=== PATIENT | male | born 1945 | race Caucasian/White ===

== ENCOUNTER 2020-06-10 12:55 | Emergency (ER) | payer MEDICARE, OTHER, SELFPAY ==
[2020-06-10 13:21] VITALS: BP 125/72; PULSE 101; RESP 14; TEMP 36.5; O2SAT 100; BMI 17.9
--- NOTE | 2020-06-10 13:37 | HMH.EDUTC ---
[facility] [place] Disposition Clinical Impression: Viral syndrome Fatigue Qualifiers: Fatigue type: unspecified Qualified Code(s): R53.83 - Other fatigue Anemia Qualifiers: Anemia type: unspecified type Qualified Code(s): D64.9 - Anemia, unspecified Disposition: Home, Self-Care Condition on Discharge: Good Instructions: DI for Viral Syndrome Additional Instructions: Drink plenty of fluids. You need to follow up with your primary care physician for further evaluation of your chest x-ray. We don't have an old one to compare it to. You may need to have a ct scan but your primary care doctor is who should make this choice. Take tylenol for pain or fever. Return if you begin to have difficulty breathing. Follow up with your regular doctor. GO TO THE ER FOR ANY WORSENING SYMPTOMS FOLLOW UP WITH YOUR PRIMARY CARE PHYSICIAN TO GO OVER YOUR LAB WORK AND TO DISCUSS YOUR MILD ANEMIA ON THE BLOOD WORK. Prescriptions: Ondansetron [Zofran 4mg ODT] 4 mg PO Q8HP PRN #9 tab.rapdis PRN Reason: Nausea Transmission Status: Received by [facility] Azithromycin [Z-Gopi 250mg Tab*] 250 mg PO UD DOSE PK #6 tab Transmission Status: Received by [facility] Referrals: PCP,No [Primary Care Provider] - Time of Disposition: 14:42 Medical Decision Making - Medical Records Medical records reviewed: No: I reviewed the patient's medical records. - Mitchell Inquiry Pt receiving controlled substance: No Vital Signs: 06/10/20 13:21 06/10/20 15:23 Temperature 97.7 F 97.8 F Temperature Source Tympanic Oral Pulse Rate 101 H Pulse Rate [Right] 101 H Respiratory Rate 14 14 Blood Pressure 126/72 Blood Pressure [Right Arm] 125/72 Blood Pressure Mean [Right Arm] 89 Blood Pressure Source Automatic Cuff Blood Pressure Source [Right Arm] Automatic Cuff Blood Pressure Position Supine Blood Pressure Position [Right Arm] Sitting 02 Sat by Pulse Oximetry 100 Oxygen Delivery Method Room Air Room Air - Lab Data Lab results reviewed: Yes: I reviewed the patient's lab results. Lab Results 06/10/20 14:00: WBC 9.7, RBC 3.82 L, Hgb 11.8 L, Hct 36.6 L, MCV 95.7 H, MCH 31.0, MCHC 32.4, RDW 12.4, Plt Count 481 H, MPV 7.0 L, Neut % (Auto) 79.5, Lymph % (Auto) 15.3, [place] % (Auto) 4.6, Eos % (Auto) 0.3, Baso % (Auto) 0.3, Neut # (Auto) 7.7, Lymph # (Auto) 1.5, [place] # (Auto) 0.4, Eos # (Auto) 0.0, Baso # (Auto) 0.0 06/10/20 14:00: Sodium 135 L, Potassium 4.2, Chloride 98, Carbon Dioxide 26, Anion Gap 15.2 H, BUN 21 H, Creatinine 0.70, Estimated Creat Clear 50, Estimated GFR 110, Est GFR ( Amer) 133, Glucose 113 H, Calcium 7.6 L, Total Bilirubin 0.6, AST 32, ALT 19, Alkaline Phosphatase 68, Total Protein 7.6, Albumin 3.7, Globulin 3.9 H, Albumin/Globulin Ratio 0.9 L Result diagrams: 06/10/20 14:00 06/10/20 14:00 [facility] [place] HPI - General Stated complaint: no appetite since Covid Shot 3-15 V/D Time Seen by Provider: 06/10/20 13:37 Mode of Arrival: Ambulatory Source of Information: Patient Limitations: No Limitations Description of Symptoms (Recalled from Triage Doc. by RN): pt states he has been sick since his second covid vaccine on May 15. he says he just feels bad and has no appetite. HEENT Symptoms (Recalled from RN notes): No Resp Symptoms (Recalled from RN notes): No Skin Symptoms (Recalled from RN notes): No MS Symptoms (Recalled from RN notes): No Functional Status (Recalled from RN notes): na - History of Present Illness Provider Complaint: He states that he has felt bad for the past 2 weeks. He began feeling bad after his second covid-19 vaccination. He denies any cough and fever. He denies any chest pain. - Related Data Previous Rx's Medication Instructions Recorded Azithromycin [Z-Gopi 250mg Tab*] 250 mg PO UD DOSE PK #6 tab 06/10/20 Ondansetron [Zofran 4mg ODT] 4 mg PO Q8HP PRN #9 tab.rapdis 06/10/20 - Worker's Comp Is this a Worker's Comp case?: No [facility]
--- NOTE | 2020-06-10 13:43 | XR_ITS ---
PROCEDURE: XR CHEST 2V CLINICAL HISTORY: cough, feels bad COMPARISON: CR CXR CHEST(2 VIEWS-NOT PORTABLE) from 05/09/2014 FINDINGS: The cardiomediastinal silhouette and pulmonary vascularity are within normal limits. Severe COPD/emphysema. There is biapical pleural thickening. There is scattered areas of parenchymal opacity in the right upper lobe, left upper lobe both mid lung zones and the left lower lobe. These could be due to areas of pneumonia or fibrotic change. Cannot exclude underlying pulmonary nodule as well. Dedicated chest CT with contrast suggested for further evaluation. These bilateral pulmonary opacities have developed since 05/09/2014. There is also prominence of the left hilum raising the suspicion of a left hilar mass. No effusions. No acute bony anomalies. There is mild tracheal shift toward the left which may be due to left upper lobe volume loss. No acute bony abnormalities. IMPRESSION: Severe COPD/emphysema with interval development of scattered bilateral pulmonary opacities which could be either inflammatory/infectious, due to scarring, or even neoplasm or a combination there of. Prominent left hilum. Suggest chest CT with contrast for further evaluation. Dictated by: Robbie Simmons MD 06/10/2020 15:02 Robbie Simmons MD in [place] 06/10/2020 15:02
[2020-06-10 14:15] LABS: Basophils % 0.3 % (0.1-2.0); Eosinophils % 0.3 % (0.1-12.0); Hematocrit 36.6 % (42.0-52.0); Hemoglobin 11.8 g/dL (14.1-18.0); Lymphocytes # 1.5 K/mm3 (0.7-4.5); Lymphocytes % 15.3 % (10-50); Mean Corpuscular HGB Conc 32.4 g/dL (31.8-35.4); Mean Corpuscular Volume 95.7 fl (80-94); Monocytes # 0.4 K/mm3 (0.1-1.0); Monocytes % 4.6 % (1.7-9.3); Neutrophils # 7.7 K/mm3 (1.8-7.8); Neutrophils % 79.5 % (37.0-80.0); Platelet Count 481 K/mm3 (142-424); Red Blood Count 3.82 M/mm3 (4.60-6.20); Red Cell Distribution Width 12.4 % (11.5-17.5); White Blood Count 9.7 K/mm3 (4.8-10.8)
[2020-06-10 14:18] LABS: Alanine Aminotransferase 19 U/L (12-78); Albumin Level 3.7 g/dl (3.5-5.0); Albumin/Globulin Ratio 0.9 (1.1-1.8); Alkaline Phosphatase 68 U/L (38-126); Anion Gap 15.2 mEq/L (5-15); Aspartate Amino Transferase 32 U/L (17-59); Bilirubin,Total 0.6 mg/dl (0.2-1.3); Blood Urea Nitrogen 21 mg/dl (9-20); Calcium 7.6 mg/dl (8.4-10.2); Carbon Dioxide 26 mmol/L (22.0-30.0); Chloride 98 mmol/L (98-107); Creatinine Clearance Estimated 50 mL/min (50-200); Estimated Glomerular Filt Rate 110 ml/min (>60); GFR (African American) 133 ML/MIN (>60); Globulin 3.9 g/dL (1.3-3.2); Glucose 113 mg/dl (74-100); Potassium 4.2 mmoL/L (3.5-5.1); Sodium 135 mmol/L (136-145); Total Protein,Serum 7.6 g/dl (6.3-8.2)
[2020-06-10 15:23] VITALS: BP 126/72; PULSE 101; RESP 14; TEMP 36.6; O2SAT 100
== END 2020-06-10 15:23 | disposition home or self-care (01) ==
PROVIDERS: Emergency Provider Nurse Practitioner Family
DX: B34.9 Viral infection, unspecified (principal); R53.83 Other fatigue; D64.9 Anemia, unspecified
CPT/HCPCS: G0463; 71046; 80053; 85025; 99202

== ENCOUNTER 2020-06-10 18:02 | Observation (INO) | payer MEDICARE, OTHER, SELFPAY ==
[2020-06-10] VITALS (37 sets, daily range): BP systolic 78–121; BP diastolic 32–88; PULSE 62–168; RESP 16–40; TEMP 37.4; O2SAT 95–100; BMI 22.1; BMI 15.7
--- NOTE | 2020-06-10 18:07 | ECG_ITS ---
APPROVED REPORT Exam: Resting ECG HR:159 bpm ECG Measurements Heart Rate 159 AXES QRSd 86 QRS 86 QT 308 T 72 QTc 501 Conclusion Atrial fibrillation with rapid ventricular response Septal infarct, age undetermined ST & T wave abnormality, consider inferior ischemia or digitalis effect Abnormal ECG Electronically signed by : Uday Suh, 06/11/2020 08:40:26
--- NOTE | 2020-06-10 18:09 | CT_ITS ---
PROCEDURE: CT HEAD/BRAIN WO CON CLINICAL INDICATION: seizure new onset COMPARISON: No exams were available for comparison TECHNIQUE: Axial images obtained. All CT scans at the facility use one or more dose reduction, viz: automated exposure control, ma/kV adjustment per patient size (including targeted exams where dose is matched to indication, i.e. head), or iterative reconstruction technique. FINDINGS: No midline shift, mass effect, intracranial hemorrhage, hydrocephalus, or extra-axial fluid collection is evident. There is generalized atrophy with hypoattenuation of the periventricular white matter consistent with microangiopathic changes. Old small lacunar infarction noted of the head of the caudate on the left in the body of the caudate on the right. The calvarium has an unremarkable appearance. No mastoid effusion. No sinus air-fluid level. Mucous retention cyst right maxillary sinus and left ethmoid sinus.. There is rightward nasal septal deviation with septal spur projecting toward the right with mild mucosal thickening of the ethmoid and right maxillary sinus. Bone plate is present along the left inferior orbital rim IMPRESSION: 1. No acute intracranial findings. 2. Chronic changes as described above. Dictated by: Robbie Simmons MD 06/11/2020 09:41 Robbie Simmons MD in [place] 06/11/2020 09:42
--- NOTE | 2020-06-10 18:09 | HMH.EDSEIZ ---
ED Disposition Clinical Impression: Atrial fibrillation with RVR, Hypomagnesemia Alcohol withdrawal seizure Qualifiers: Complication of substance-induced condition: uncomplicated Qualified Code(s): F10.230 - Alcohol dependence with withdrawal, uncomplicated; R56.9 - Unspecified convulsions Disposition: Admitted As Inpatient Condition on Discharge: Good Time of Disposition: 20:33 - Critical Care Critical Care Time: No Attestation: On , the high probability of a clinically significant, sudden or life threatening deterioration of the following system(s) required my full and direct attention, intervention and personal management. The time I documented below is in addition to time spent performing reported procedures but includes the following listed in this critical care notation. Medical Decision Making - Medical Records Medical records reviewed: Yes: I reviewed the patient's medical records. - Mitchell Inquiry Pt receiving controlled substance: No Vital Signs: 06/10/20 18:03 06/10/20 18:36 06/10/20 18:41 Temperature 99.3 F Temperature Source Rectal Pulse Rate 137 H 116 H Pulse Rate [Left Radial] 168 H Respiratory Rate 40 H 27 H 29 H Blood Pressure 91/52 L 78/32 L Blood Pressure [Right Arm] 119/62 Blood Pressure Mean [Right Arm] 81 Blood Pressure Source [Right Arm] Automatic Cuff Blood Pressure Position [Right Arm] Sitting 02 Sat by Pulse Oximetry 95 97 97 Oxygen Delivery Method Room Air - Lab Data Lab Results 06/10/20 18:00: WBC 11.8 H, RBC 3.95 L, Hgb 12.5 L, Hct 37.7 L, MCV 95.4 H, MCH 31.6 H, MCHC 33.1, RDW 13.1, Plt Count 581 H, MPV 8.0, Neut % (Auto) 71.2, Lymph % (Auto) 23.0, [place] % (Auto) 4.8, Eos % (Auto) 0.5, Baso % (Auto) 0.4, Neut # (Auto) 8.4 H, Lymph # (Auto) 2.7, [place] # (Auto) 0.6, Eos # (Auto) 0.1, Baso # (Auto) 0.0 06/10/20 18:00: Sodium 133 L, Potassium 3.6, Chloride 99, Carbon Dioxide 14 L D, Anion Gap 23.6 H, BUN 22 H, Creatinine 0.80, Estimated GFR 94, Est GFR ( Amer) 114, Glucose 160 H D, Calcium 7.7 L, Magnesium 0.5 L, Total Bilirubin 0.7, AST 31, ALT 34 D, Alkaline Phosphatase 77, Troponin I < 0.01, NT-Pro-B Natriuret Pep 983 H, Total Protein 7.3, Albumin 3.6, Globulin 3.7 H, Albumin/Globulin Ratio 1.0 L 06/10/20 18:00: PT 13.2 H, INR 1.13 H, APTT 29.5 06/10/20 18:00: Phosphorus 5.0 H 06/10/20 18:05: Urine Color Yellow, Urine Appearance Clear, Urine pH 6.5, Ur Specific [place] 1.020, Urine Protein 1+, Urine Glucose (UA) Negative, Urine Ketones 1+, Urine Blood Negative, Urine Nitrate Negative, Urine Bilirubin Negative, Urine Urobilinogen 1.0, Ur Leukocyte Esterase Negative, Urine WBC 5-10, Urine Sperm 3+ 06/10/20 18:09: VBG pH 7.29 L, VBG pCO2 33.8 L, VBG pO2 80.7 H, VBG HCO3 15.9 L, VBG Total CO2 16.9 L, VBG O2 Saturation 94.5 H, VBG Base Excess -10.7 L 06/10/20 18:20: Lactate 13.8 H Result diagrams: 06/10/20 18:00 06/10/20 18:00 Orders (Tests/Meds): ED MEDICATIONS Generic Name Dose Route Start Last Admin Trade Name Susana PRN Reason Stop Dose Admin Folic Acid 1 mg 06/10/20 19:15 Folic Acid 1mg Tablet PO 07/10/20 19:14 DAILY DEVENDRA Haloperidol 5 mg 06/10/20 19:05 Haloperidol 5 Mg Tablet PO 07/10/20 19:04 Q1HP PRN Agitation Diltiazem HCl 100 mg/ Sodium 100 mls @ 5 mls/hr 06/10/20 18:15 06/10/20 18:32 Chloride IV 07/10/20 18:14 5 mls/hr .Q20H DEVENDRA Administration Protocol Sodium Chloride 1,000 mls @ 25 mls/hr 06/10/20 19:15 Sod Chlor 0.9% 1000ml Bag IV 07/10/20 19:14 .Q25H DEVENDRA Multivitamins 1 each 06/11/20 17:00 Multivitamin Tablet PO 07/11/20 16:59 [facility] Oxazepam 15 mg 06/12/20 19:15 Oxazepam 15 Mg Capsule PO 07/12/20 19:14 Q6H [facility] Oxazepam 30 mg 06/10/20 19:15 Oxazepam 15 Mg Capsule PO 06/12/20 13:16 Q6H DEVENDRA Discontinued Medications Generic Name Dose Route Start Last Admin Trade Name Panchitoq PRN Reason Stop Dose Admin Diltiazem HCl 15 mg 06/10/20 18:35
[2020-06-10 18:13] LABS: VBG Base Excess -10.7 mmol/L (-2.4-2.3); VBG HCO3 15.9 mmol/L (23-30); VBG Oxygen Saturation 94.5 % (50-70); VBG PCO2 33.8 mmol/L (35-51); VBG PH 7.29 mmol/L (7.31-7.41); VBG PO2 80.7 mmol/L (28-40); VBG Total CO2 16.9 mmol/L (23-27)
[2020-06-10 18:22] LABS: Basophils % 0.4 % (0.1-2.0); Eosinophils # 0.1 K/mm3 (0.0-0.4); Eosinophils % 0.5 % (0.1-12.0); Hematocrit 37.7 % (42.0-52.0); Hemoglobin 12.5 g/dL (14.1-18.0); Lymphocytes # 2.7 K/mm3 (0.7-4.5); Mean Corpuscular HGB Conc 33.1 g/dL (31.8-35.4); Mean Corpuscular Hemoglobin 31.6 pg (27.0-31.2); Mean Corpuscular Volume 95.4 fl (80-94); Monocytes # 0.6 K/mm3 (0.1-1.0); Monocytes % 4.8 % (1.7-9.3); Neutrophils # 8.4 K/mm3 (1.8-7.8); Neutrophils % 71.2 % (37.0-80.0); Platelet Count 581 K/mm3 (142-424); Red Blood Count 3.95 M/mm3 (4.60-6.20); Red Cell Distribution Width 13.1 % (11.5-17.5); White Blood Count 11.8 K/mm3 (4.8-10.8)
[2020-06-10 18:24] LABS: Chloride 99 mmol/L (98-107); Sodium 133 mmol/L (136-145)
[2020-06-10 18:25] LABS: Potassium 3.6 mmoL/L (3.5-5.1)
[2020-06-10 18:27] LABS: Alanine Aminotransferase 34 U/L (12-78); Albumin Level 3.6 g/dl (3.5-5.0); Alkaline Phosphatase 77 U/L (38-126); Anion Gap 23.6 mEq/L (5-15); Aspartate Amino Transferase 31 U/L (17-59); Bilirubin,Total 0.7 mg/dl (0.2-1.3); Blood Urea Nitrogen 22 mg/dl (9-20); Calcium 7.7 mg/dl (8.4-10.2); Carbon Dioxide 14 mmol/L (22.0-30.0); Estimated Glomerular Filt Rate 94 ml/min (>60); GFR (African American) 114 ML/MIN (>60); Globulin 3.7 g/dL (1.3-3.2); Glucose 160 mg/dl (74-100); Total Protein,Serum 7.3 g/dl (6.3-8.2)
[2020-06-10 18:31] LABS: Magnesium 0.5 mg/dl (1.6-2.3)
--- NOTE | 2020-06-10 18:31 | PC.NURSE ---
critical labs called to khris olivarez RN
--- NOTE | 2020-06-10 18:32 | PC.NURSE ---
DILT DRIP STARTED AT 10
--- NOTE | 2020-06-10 18:35 | PC.NURSE ---
CRITICAL MAG REPORTED TO DR MAJOR
[2020-06-10 18:36] LABS: NT Pro Brain Natriuretic Pep. 983 pg/mL (0-125)
--- NOTE | 2020-06-10 18:36 | PC.NURSE ---
AT BEDSIDE PT REPORTS PT WAS A DAILY DRINKER BUT QUIT 1 WEEK AGO.
[2020-06-10 18:41] LABS: Microscopic, Urine URINE MICROSCOPIC (MICROSCOPIC)
--- NOTE | 2020-06-10 18:42 | PC.NURSE ---
BS 154 per EMS
[2020-06-10 18:44] LABS: Troponin I < 0.01 ng/ml (0.00-0.034)
[2020-06-10 18:45] LABS: Lactic Acid 13.8 mmol/L (0.7-2.1)
--- NOTE | 2020-06-10 18:53 | PC.NURSE ---
titrated Cardizem to 5mg/hr
[2020-06-10 18:54] LABS: Appearance,Urine CLEAR (Clear); Blood, Urine Negative (Negative); Color,Urine YELLOW (Yellow); Glucose,Urine (UA) Negative (Negative); Ketones,Urine 1+ (Negative); Leukocyte Esterase,Urine Negative (Negative); Nitrate,Urine Negative (Negative); PH,Urine 6.5 (5.0-8.5); Protein,Urine 1+ (Negative)
--- NOTE | 2020-06-10 18:58 | XR_ITS ---
PROCEDURE: XR CHEST PORTABLE CLINICAL HISTORY: AMS Altered mental status, altered level of consciousness, confusion, disorientation, seizure COMPARISON: CR CXR CHEST(2 VIEWS-NOT PORTABLE) from 05/09/2014 CR XR CHEST 2V from 06/10/2020 FINDINGS: COPD with severe emphysematous changes. Scattered parenchymal opacities are once again noted in the right upper, left upper, left lower lobe. Prominent left hilum also once again noted. No acute bony findings. IMPRESSION: No change in the scattered parenchymal opacities, left hilar mass/consolidation, COPD/emphysema Dictated by: Robbie Simmons MD 06/11/2020 07:22 Robbie Simmons MD in [place] 06/11/2020 07:22
[2020-06-10 19:00] LABS: Bilirubin,Urine Negative (Negative)
[2020-06-10 19:01] LABS: Sperm,Urine 3+ /lpf
--- NOTE | 2020-06-10 19:10 | PC.NURSE ---
Pt returned from rad.
[2020-06-10 19:25] LABS: Activated Partial Thrombo Time 29.5 seconds (22.8-30.6); INR 1.13 (0.9-1.1); Prothrombin Time 13.2 seconds (10.1-12.5)
--- NOTE | 2020-06-10 19:43 | PC.NURSE ---
1899 pt was accompanied by this RN to CT
--- NOTE | 2020-06-10 20:37 | PC.NURSE ---
[facility] speaking with [facility]
--- NOTE | 2020-06-10 21:14 | PC.NURSE ---
Family of pt states that they do not want pt to go to the [place] hospital. States she has been with the pt for 27 years and she has paperwork where she is allowed to make decisions for the pt. aware, talked with the pt who is alert at this time but unable to answer orientation question approp at this time. Family is aware that because he is [place] that is where they will want them to come due to fact they have a bed and that pt will be reliable for the medical expenses. Family states that she is aware and that pt has other insurance.
[2020-06-10 21:19] LABS: Adenovirus,PCR Not Detected (NotDetected); Bordetella Pertussis Not Detected (NotDetected); Chlamydophila Pneumoniae, PCR Not Detected (NotDetected); Coronavirus 19, PCR Not Detected (NotDetected); Coronavirus 229E Not Detected (NotDetected); Coronavirus NL63 Not Detected (NotDetected); Coronavirus OC43 Not Detected (NotDetected); Coronovirus HKU1,PCR Not Detected (NotDetected); Human Metapneumovirus Not Detected (NotDetected); Influenza A, PCR Not Detected (NotDetected); Influenza AH1, 2009 Not Detected (NotDetected); Influenza AH1, PCR Not Detected (NotDetected); Influenza AH3,PCR Not Detected (NotDetected); Influenza B, PCR Not Detected (NotDetected); Mycoplasma Pneumoniae, PCR Not Detected (NotDetected); Parainfluenza 1, PCR Not Detected (NotDetected); Parainfluenza 2, PCR Not Detected (NotDetected); Parainfluenza 3, PCR Not Detected (NotDetected); Parainfluenza 4, PCR Not Detected (NotDetected); Respiratory Syncytial Virus Not Detected (NotDetected); Rhinovirus/Enterovirus Not Detected (NotDetected)
--- NOTE | 2020-06-10 21:19 | PC.NURSE ---
speaking with Dr. Blanco for admission
--- NOTE | 2020-06-10 21:26 | PC.NURSE ---
Cardizem PO given and gtt stopped per
[2020-06-10 21:37] LABS: Troponin I < 0.01 ng/ml (0.00-0.034)
[2020-06-10 22:26] LABS: Reflex Lactic Add Lactic Reflex
--- NOTE | 2020-06-10 22:43 | PC.NURSE ---
daughter advised she did not want [facility] and [facility]. had daughter sign [facility] refusal form and [facility] it to the [facility] at [phone]
[2020-06-10 22:47] LABS: Lactic Acid Follow Up (RFLX 1) 0.9 mmol/L (0.7-2.1)
[2020-06-11] VITALS (11 sets, daily range): BP systolic 79–96; BP diastolic 46–65; PULSE 80–115; RESP 16–30; TEMP 36.3–36.8; O2SAT 95–99; BMI 17.7; BMI 17.8
--- NOTE | 2020-06-11 00:17 | PC.NURSE ---
PT ARRIVED TO FLOOR VIA STRETCHER FROM ED W/ STAFF AT 0016
[2020-06-11 00:46] LABS: Magnesium 1.9 mg/dl (1.6-2.3)
[2020-06-11 00:59] LABS: Troponin I < 0.01 ng/ml (0.00-0.034)
[2020-06-11 06:41] LABS: POC Glucose,Bedside 98 (70-110)
--- NOTE | 2020-06-11 06:44 | PC.NURSE ---
pt admitted for ETOH seizures. seizure precautions in place. bed alarm on. díaz draining cloudy hank urine. iv patent and infusing per order. ciwa has been less than 8 the last two times. pt slept since arrival to floor with no complaint. alert to self and place. hypotension noted. 1500 bolus was given as ordered. call light in reach. telemetry reads afib with pvc's. will continue to monitor.
[2020-06-11 07:16] LABS: Basophils % 0.3 % (0.1-2.0); Eosinophils # 0.1 K/mm3 (0.0-0.4); Eosinophils % 1.1 % (0.1-12.0); Hematocrit 29.6 % (42.0-52.0); Lymphocytes # 1.1 K/mm3 (0.7-4.5); Lymphocytes % 14.5 % (10-50); Mean Corpuscular HGB Conc 32.9 g/dL (31.8-35.4); Mean Corpuscular Hemoglobin 31.6 pg (27.0-31.2); Mean Corpuscular Volume 96.1 fl (80-94); Mean Platelet Volume 7.6 fl (7.4-10.4); Monocytes # 0.4 K/mm3 (0.1-1.0); Monocytes % 5.8 % (1.7-9.3); Neutrophils # 5.9 K/mm3 (1.8-7.8); Neutrophils % 78.3 % (37.0-80.0); Platelet Count 382 K/mm3 (142-424); Red Blood Count 3.09 M/mm3 (4.60-6.20); White Blood Count 7.6 K/mm3 (4.8-10.8)
[2020-06-11 07:19] LABS: Chloride 108 mmol/L (98-107)
[2020-06-11 07:20] LABS: Potassium 3.4 mmoL/L (3.5-5.1); Sodium 137 mmol/L (136-145)
[2020-06-11 07:23] LABS: Anion Gap 9.4 mEq/L (5-15); Blood Urea Nitrogen 20 mg/dl (9-20); Carbon Dioxide 23 mmol/L (22.0-30.0); Creatinine Clearance Estimated 50 mL/min (50-200); Estimated Glomerular Filt Rate 94 ml/min (>60); GFR (African American) 114 ML/MIN (>60); Glucose 93 mg/dl (74-100); Magnesium 1.6 mg/dl (1.6-2.3)
[2020-06-11 07:36] LABS: INR 1.03 (0.9-1.1); Prothrombin Time 12.1 seconds (10.1-12.5)
[2020-06-11 07:37] LABS: Hemoglobin 9.8 g/dL (14.1-18.0)
[2020-06-11 07:42] LABS: Calcium 6.6 mg/dl (8.4-10.2)
--- NOTE | 2020-06-11 08:15 | HMH.HP ---
*Admission Date: 06/10/20 *Chief complaint: Witnessed seizure *History of present illness: 75-year-old male with COPD and BPH presented to the emergency department yesterday evening with witnessed seizure-like activity at home. Patient himself this morning does not recall the events of yesterday. I have spoken with a friend who he lives with to obtain history. She reports patient was not feeling well yesterday and initially came to the urgent treatment clinic. He has been complaining of malaise and weakness since his second Covid vaccine in the middle of May. Patient was given azithromycin and Zofran. He returned home and went immediately to bed. His friend checked on him later in the evening and that is when it was noticed he was seizing. Patient's friend reports stiffening of his body with his eyes rolling back in his head and inability to communicate. EMS was called and patient was brought to the emergency department. Patient was given IV benzodiazepine in route which stopped the seizing. Patient was also given Keppra in the emergency department. Patient's friend reports that the patient drinks whiskey daily and she suspects his last drink was 1 week ago. The patient himself reports drinking 2-3 beers a day and whiskey 1-2 times per week. While in the emergency department work-up also revealed what is believed to be new onset of atrial fibrillation. Patient was initially started on a Cardizem drip but then transition to oral Cardizem for rate control. Patient denies any history of cardiac problems [facility] History I have reviewed the patient's past medical history: Yes Medical History: Reports:: BPH, Chronic Obstructive Pulmonary Disease (COPD) *Have you ever received a pneumonia vaccine?: No *Have you received a flu vaccine this season?: No - *Social History Smoking Status: Current every day smoker # Packs/Day (cigarettes): 0 Alcohol Intake: current Alcohol Intake Frequency:: 3 or more drinks per day Substance Use Type: denies use *Occupational Status:: retired *Travel in the last 8 weeks: None Family Hx:: Unable to obtain Review of Systems - Constitutional Reports fatigue, Reports lack of energy, Reports malaise, Denies anorexia, Denies body ache(s), Denies chills - ENT Denies abnormal hearing - *Cardiovascular Denies chest pain, Denies chest pain at rest, Denies chest pain with activity, Denies generalized swelling, Denies irregular heart rhythm - *Respiratory Reports cough, Denies change in phlegm color, Denies chest congestion, Denies coughing up blood - *Gastrointestinal Denies abdominal pain, Denies belching, Denies bloating, Denies heartburn - *Genitourinary Denies difficulty urinating - *Musculoskeletal Denies abnormal walking, Denies joint pain - *Neurologic Denies abnormal walking, Denies abnormal hearing Meds Home Medications Medication Instructions Recorded Confirmed Type Finasteride [Proscar 5mg Tablet] 5 mg PO DAILY 06/10/20 06/10/20 History Tamsulosin HCl 0.4 mg PO HS 06/10/20 06/10/20 History Tiotropium [place] [Spiriva 2 cap IH DAILY 06/10/20 06/10/20 History 18mcg/puff inhaler] Allergies Allergy/AdvReac Type Severity Reaction Status Date / Time No Known Allergies Allergy Verified 06/10/20 18:35 Exam Vital signs and Labs for Last 24 Hours: Temp Pulse Resp BP Pulse Ox 97.4 F L 104 H 18 88/52 L 96 06/11/20 04:00 06/11/20 04:00 06/11/20 04:00 06/11/20 04:00 06/11/20 04:00 Laboratory Results - last 24 hr 06/10/20 18:00: WBC 11.8 H, RBC 3.95 L, Hgb 12.5 L, Hct 37.7 L, MCV 95.4 H, MCH 31.6 H, MCHC 33.1, RDW 13.1, Plt Count 581 H, MPV 8.0, Neut % (Auto) 71.2, Lymph % (Auto) 23.0, [place] % (Auto) 4.8, Eos % (Auto) 0.5, Baso % (Auto) 0.4, Neut # (Auto) 8.4 H, Lymph # (Auto) 2.7, [place] # (Auto) 0.6, Eos # (Auto) 0.1, Baso # (Auto) 0.0 06/10/20 18:00: Sodium 133 L, Potassium 3.6, Chloride 99, Carbon Dioxide 14 L D, Anion Gap 23.6 H, BUN 22 H, Creatinine 0.80, Estimate
[2020-06-11 08:54] LABS: Reticulocyte % (Auto) 1.7 % (0.9-3.2)
[2020-06-11 08:58] LABS: Iron 19 ug/dL (49-181)
[2020-06-11 09:07] LABS: Total Iron Binding Capacity 136 ug/dL (261-462)
[2020-06-11 09:34] LABS: Ferritin 284 ng/ml (17.9-464)
--- NOTE | 2020-06-11 11:26 | HMH.PHAINT ---
MEDICATION RECONCILIATION COMPLETED ON PATIENT USING EXTERNAL FILL HISTORY FROM PHARMACY. -MARY JONES, DUANED
--- NOTE | 2020-06-11 11:26 | HMH.PHAVTE ---
[facility] Pharmacy VTE Monitoring - Patient Demographics Admission date: 06/10/20 Report Date: 06/11/20 Time: 11:26 Allergies/Adverse Reactions: Patient Allergies No Known Allergies Allergy (Verified 06/10/20 18:35) Height: 1.75 m Weight: 54.573 kg Patient Problems: Current Active Problems Anemia (Acute) Alcohol withdrawal seizure (Acute) Atrial fibrillation with RVR (Acute) Hypomagnesemia (Acute) Hypocalcemia (Acute) Hypokalemia (Acute) - VTE Risk Labs: VTE Related Lab Results Hgb 9.8 g/dL (14.1-18.0) L D 06/11/20 06:29 Hct 29.6 % (42.0-52.0) L 06/11/20 06:29 Plt Count 382 K/mm3 (142-424) D 06/11/20 06:29 PT 12.1 seconds (10.1-12.5) 06/11/20 06:29 INR 1.03 (0.9-1.1) 06/11/20 06:29 APTT 29.5 seconds (22.8-30.6) 06/10/20 18:00 BUN 20 mg/dl (9-20) 06/11/20 06:29 Creatinine 0.80 mg/dl (0.66-1.25) 06/11/20 06:29 Estimated Creat Clear 50 mL/min (50-200) 06/11/20 06:29 Was VTE Risk Assessment Performed: Yes VTE Score: 3 VTE Risk Level: Low Risk - Prophylaxis VTE Prophylaxis Ordered?: Yes Types of VTE Prophylaxis: TEDS Knee High, Pharmacological Location of Applied Device: Bilateral Lower Extremeties Pharmacologic Type: Other (ELIQUIS)
[2020-06-11 13:24] LABS: Vitamin B12 566 pg/mL (239-931)
[2020-06-11 13:30] LABS: Folate 3.14 ng/mL
[2020-06-11 15:53] LABS: POC Glucose,Bedside 75 (70-110)
--- NOTE | 2020-06-11 18:29 | PC.NURSE ---
HE HAS BECOME INCREASINGLY MORE ALERT T/O SHIFT, ABLE TO ANSWER QUESTIONS APPROPRIATELY, PT HAS BEEN HYPOTENSIVE BUT OTHERWISE VITAL SIGNS HAVE BEEN STABLE, [place] CATHETER IN PLACE DRAINING CLEAR YELLOW URINE, HE HAS DENIED PAIN, NO N/V/D NOTED, LUNG SOUNDS CTA, CIWA <5 T/O SHIFT, NO NEEDS AT THIS TIME.
--- NOTE | 2020-06-11 19:21 | PC.NURSE ---
THIS RN PROVIDED REPORT TO LENNOX, SRNA
[2020-06-11 19:41] LABS: POC Glucose,Bedside 108 (70-110)
--- NOTE | 2020-06-11 22:01 | PC.NURSE ---
DID ROUNDING WITH THE TECHS,EMPYTIED TRASH,AND LINENS,PASSED SNACKS. PATIENT HAD NO NEEDS AT THIS TIME.PaulM
[2020-06-12] VITALS (9 sets, daily range): BP systolic 78–123; BP diastolic 50–68; PULSE 70–110; RESP 17–24; TEMP 36.3–36.8; O2SAT 92–97; BMI 19.1
--- NOTE | 2020-06-12 04:47 | PC.NURSE ---
A&OX4 THIS SHIFT. PT HAS HAD NO C/O T/O SHIFT THUS FAR. CIWA HAS BEEN ZERO EACH TIME CHECKED. CATHETER REMOVED, PT HAS HAD U/O SINCE REMOVAL. PT STOOD WELL TO URINATE IN URINAL. PT IN GOOD SPIRITS AND LAUGHING WITH STAFF T/O SHIFT. PT RESTING IN BED WITH EYES CLOSED. PT HAS HAD LOW BP T/O SHIFT, BUT HAS REMAINED ASYMPTOMATIC. VSS WILL CONTINUE TO MONITOR.
--- NOTE | 2020-06-12 05:00 | PC.NURSE ---
EMPTIED TRASH AND LINENS REFILLED ICE PITCHERS. PT HAD NO NEEDS AT THIS TIME.Cortez
[2020-06-12 07:38] LABS: Basophils % 0.3 % (0.1-2.0); Eosinophils # 0.1 K/mm3 (0.0-0.4); Eosinophils % 1.5 % (0.1-12.0); Hematocrit 29.4 % (42.0-52.0); Hemoglobin 9.7 g/dL (14.1-18.0); Lymphocytes # 1.2 K/mm3 (0.7-4.5); Lymphocytes % 15.5 % (10-50); Mean Corpuscular HGB Conc 33.1 g/dL (31.8-35.4); Mean Corpuscular Hemoglobin 31.7 pg (27.0-31.2); Mean Corpuscular Volume 95.9 fl (80-94); Mean Platelet Volume 7.8 fl (7.4-10.4); Monocytes # 0.4 K/mm3 (0.1-1.0); Monocytes % 5.1 % (1.7-9.3); Neutrophils % 77.7 % (37.0-80.0); Platelet Count 414 K/mm3 (142-424); Red Blood Count 3.06 M/mm3 (4.60-6.20); White Blood Count 7.7 K/mm3 (4.8-10.8)
[2020-06-12 07:40] LABS: Chloride 108 mmol/L (98-107); Potassium 3.5 mmoL/L (3.5-5.1); Sodium 135 mmol/L (136-145)
[2020-06-12 07:42] LABS: Blood Urea Nitrogen 20 mg/dl (9-20); Creatinine Clearance Estimated 54 mL/min (50-200); Estimated Glomerular Filt Rate 110 ml/min (>60); GFR (African American) 133 ML/MIN (>60)
[2020-06-12 07:43] LABS: Alanine Aminotransferase 12 U/L (12-78); Albumin Level 2.5 g/dl (3.5-5.0); Albumin/Globulin Ratio 0.9 (1.1-1.8); Alkaline Phosphatase 69 U/L (38-126); Anion Gap 4.5 mEq/L (5-15); Aspartate Amino Transferase 21 U/L (17-59); Bilirubin,Total 0.2 mg/dl (0.2-1.3); Carbon Dioxide 26 mmol/L (22.0-30.0); Globulin 2.9 g/dL (1.3-3.2); Glucose 102 mg/dl (74-100); Magnesium 1.6 mg/dl (1.6-2.3); Total Protein,Serum 5.4 g/dl (6.3-8.2)
--- NOTE | 2020-06-12 08:05 | P.PN_ITS ---
Internal Medicine - PN: Subj *Date: 06/12/20 *Time: 08:05 Interval history: Patient has no complaints this morning. He slept well overnight. Appetite is improving. Exam Vital signs and Labs for Last 24 Hours: Temp Pulse Resp BP Pulse Ox 98.2 F 71 17 98/50 L 95 06/12/20 07:32 06/12/20 07:32 06/12/20 07:32 06/12/20 07:32 06/12/20 07:32 Laboratory Results - last 24 hr 06/11/20 06:29: Retic Count (auto) 1.7 06/11/20 06:29: Iron 19 L, TIBC 136 L, Iron Saturation 13.71660 L, Ferritin 284, Vitamin B12 566, Folate 3.14 06/11/20 11:25: POC Glucose 75 06/11/20 18:16: POC Glucose 108 06/12/20 06:27: WBC 7.7, RBC 3.06 L, Hgb 9.7 L, Hct 29.4 L, MCV 95.9 H, MCH 31.7 H, MCHC 33.1, RDW 13.0, Plt Count 414, MPV 7.8, Neut % (Auto) 77.7, Lymph % (Auto) 15.5, [place] % (Auto) 5.1, Eos % (Auto) 1.5, Baso % (Auto) 0.3, Neut # (Auto) 6.0, Lymph # (Auto) 1.2, [place] # (Auto) 0.4, Eos # (Auto) 0.1, Baso # (Auto) 0.0 06/12/20 06:27: Sodium 135 L, Potassium 3.5, Chloride 108 H, Carbon Dioxide 26, Anion Gap 4.5 L, BUN 20, Creatinine 0.70, Estimated Creat Clear 54, Estimated GFR 110, Est GFR ( Amer) 133, Glucose 102 H, Calcium 8.0 L D, Magnesium 1.6, Total Bilirubin 0.2, AST 21 D, ALT 12 D, Alkaline Phosphatase 69, Total Protein 5.4 L D, Albumin 2.5 L, Globulin 2.9, Albumin/Globulin Ratio 0.9 L I & O for Last 24 hours: Intake & Output 06/09/20 06/10/20 06/11/20 06/12/20 11:59 11:59 11:59 11:59 Intake Total 3700 / 3700 3491 / 3491 Output Total 375 / 375 Balance 3700 / 3700 3116 / 3116 Weight 120 lb 5 oz 129 lb 8 oz Narrative: Patient looks comfortable sitting up on the side of the bed. Lungs are distant with some scattered wheezes. Heart has an irregularly irregular rate and rhythm. Abdomen is soft. Lower extremities have no edema Assessment and Plan (1) Alcohol withdrawal seizure Status: Acute Qualifiers: Complication of substance-induced condition: uncomplicated Qualified Code(s): F10.230 - Alcohol dependence with withdrawal, uncomplicated; R56.9 - Unspecified convulsions Category: Medical Code(s): F10.239 - Alcohol dependence with withdrawal, unspecified; R56.9 - Unspecified convulsions (2) Atrial fibrillation with RVR Status: Acute Category: Medical Code(s): I48.91 - Unspecified atrial fibrillation (3) Hypocalcemia Status: Acute Category: Medical Code(s): E83.51 - Hypocalcemia (4) Hypomagnesemia Status: Acute Category: Medical Code(s): E83.42 - Hypomagnesemia (5) Hypokalemia Status: Acute Category: Medical Code(s): E87.6 - Hypokalemia (6) Anemia Status: Acute Qualifiers: Anemia type: unspecified type Qualified Code(s): D64.9 - Anemia, unspecified Category: Medical Code(s): D64.9 - Anemia, unspecified - Assessment and plan all Dx Assessment and Plan for all problems:: 1. Continue Cardizem ER 180 mg daily. Plan for echocardiogram in the morning 2. Replace magnesium today with additional IV magnesium 3. Ambulate with assistance
--- NOTE | 2020-06-12 08:47 | PC.NURSE ---
Pt RA sat= 95%. Pt taken off of 2L NC at this time.
--- NOTE | 2020-06-12 16:35 | PC.NURSE ---
Pt has been pleasant this shift. Pt is been alert and oriented to place and self but not time. Pt states the year is 1920 . Pt is easily redirected and upon reassessing can state that the year is 2020 . Pt has been on RA majority of this shift, with o2 sats >95%. Seizure precautions still in place. Pt has ambulated fine w/ standby assist this shift. Balance and gait are both steady. Pt has gotten OOb intermittently this shift, but frequently requests just going back to bed . CIWA scores have been between 0-3 this shift, due to disorientation of the date. No other acute changes or complaints at this time.
--- NOTE | 2020-06-12 19:10 | PC.NURSE ---
THIS RN PROVIDED WC REPORT TO CHARLOTTE RIBERA.
[2020-06-13] VITALS: BP 112/64; PULSE 78; PULSE 80; RESP 22; TEMP 36.5; O2SAT 92
--- NOTE | 2020-06-13 00:01 | CA_ITS ---
APPROVED REPORT EXAM: Comprehensive 2D, Doppler, and color-flow Echocardiogram Laboratory Development Technician: Shannon Gilman CRT Ht: 5 ft 8 in Wt: 120lbs BSA: 1.64 BP: 88/52 mmHg Indications: COPD, smoker, alcohol use 2D Dimensions LVOT 1.73 cm (M/F) 1.5-2.5 M-Mode Dimensions RVDd 4.16 cm (0.9-2.6) LA Diam 3.87 cm (1.9-4.0) LVDd 4.74 cm (3.5-5.7) Ao Diam 3.48 cm (2.0-3.7) LVDs 3.16 cm (3.5-5.7) IVSd 1.38 cm (0.6-1.1) PWd 0.91 cm (0.6-1.1) EF (Teich) 62.00% FS 33.30% EDV (Teich) 104.40 mL TAPSE 3.28 (<1.7) ESV (Teich) 39.70 mL LV Diastology E Decel Time 210.00 (160-240 msec) E/A Ratio 1.13 MED E' 16.30 (< 7 cm/sec) MED A' 13.10 cm/s E'/MED E' Ratio 4.85 (>14) LAT E' 11.90 (<10 cm/sec) LAT A' 9.50 cm/s E/LAT E' Ratio 6.65 (>14) Aortic Valve AO Peak GR. 4.10 mmHg Mitral Valve MV A Velocity 70.00 (40-130 cm/s) E/A Ratio 1.13 MV Decel. Time 210.00 (160-240 ms) Tricuspid Valve TR P. Velocity 320.00 cm/s RAP Estimate 10.00 mmHg RVSP 50.90 mmHg Left Ventricle Left atrium is mildly enlarged, left ventricle is normal size, there is no concentric left ventricular hypertrophy, visually estimated ejection fraction 55% with no regional wall motion abnormality, diastolic parameters are within normal range. Right Ventricle Right atrium and right ventricle moderately enlarged with normal contractility. Aortic Valve Aortic valve is minimally thickened and fibrosed. There is no aortic stenosis or aortic insufficiency. Mitral Valve Mitral valve is grossly normal, there is mild mitral regurgitation. Tricuspid Valve Tricuspid grossly normal, there is mild tricuspid regurgitation, calculated right ventricular systolic pressure is 51 mmHg. Pulmonic Valve Pulmonic valve is poorly visualized. Great Vessels Aortic root is normal size. Pericardium No significant pericardial effusion noted. Conclusion 1. Biatrial enlargement, normal left ventricular size, visually estimated ejection fraction 55% with no regional wall motion abnormality, diastolic parameters are within normal range. 2. Moderately enlarged right ventricle with normal contractility. 3. Mild mitral and tricuspid regurgitation, calculated right ventricular systolic pressure is 51 mmHg. 4. No significant pericardial effusion noted. Electronically signed by : Prince Garcia, 06/13/2020 21:23:00
--- NOTE | 2020-06-13 03:56 | PC.NURSE ---
A&OX4. PT UP TO BATHROOM INDEPENDENTLY T/O SHIFT. PT TOLERATING RA WELL THIS SHIFT. PT HAS HAD CIWA OF 0. PT REQUESTED INHALER AND SOMETHING FOR SLEEP, BENADRYL AND ALBUTEROL ORDERED PER MEGAN CORTEZ. PT HAS HAD NO OTHER C/O THUS FAR. RESTING IN BED AT THIS TIME, VSS WILL CONTINUE TO MONITOR.
[2020-06-13 04:00] VITALS: BP 139/78; PULSE 77; PULSE 80; RESP 20; TEMP 36.7; O2SAT 94
[2020-06-13 05:02] VITALS: BMI 19.3
[2020-06-13 06:37] LABS: Chloride 111 mmol/L (98-107); Potassium 4.1 mmoL/L (3.5-5.1); Sodium 139 mmol/L (136-145)
[2020-06-13 06:39] LABS: Alanine Aminotransferase 13 U/L (12-78); Albumin Level 2.7 g/dl (3.5-5.0); Albumin/Globulin Ratio 0.9 (1.1-1.8); Alkaline Phosphatase 77 U/L (38-126); Anion Gap 5.1 mEq/L (5-15); Aspartate Amino Transferase 23 U/L (17-59); Basophils % 0.3 % (0.1-2.0); Bilirubin,Total 0.3 mg/dl (0.2-1.3); Blood Urea Nitrogen 18 mg/dl (9-20); Carbon Dioxide 27 mmol/L (22.0-30.0); Creatinine Clearance Estimated 54 mL/min (50-200); Eosinophils # 0.2 K/mm3 (0.0-0.4); Estimated Glomerular Filt Rate 110 ml/min (>60); GFR (African American) 133 ML/MIN (>60); Globulin 3.1 g/dL (1.3-3.2); Glucose 111 mg/dl (74-100); Hematocrit 31.4 % (42.0-52.0); Hemoglobin 10.3 g/dL (14.1-18.0); Lymphocytes # 1.3 K/mm3 (0.7-4.5); Lymphocytes % 17.4 % (10-50); Mean Corpuscular HGB Conc 32.9 g/dL (31.8-35.4); Mean Corpuscular Hemoglobin 31.9 pg (27.0-31.2); Mean Corpuscular Volume 96.8 fl (80-94); Mean Platelet Volume 8.6 fl (7.4-10.4); Monocytes # 0.5 K/mm3 (0.1-1.0); Monocytes % 6.3 % (1.7-9.3); Neutrophils # 5.6 K/mm3 (1.8-7.8); Neutrophils % 73.9 % (37.0-80.0); Platelet Count 444 K/mm3 (142-424); Red Blood Count 3.24 M/mm3 (4.60-6.20); Total Protein,Serum 5.8 g/dl (6.3-8.2); White Blood Count 7.5 K/mm3 (4.8-10.8)
[2020-06-13 06:40] LABS: Calcium 8.4 mg/dl (8.4-10.2); Magnesium 1.5 mg/dl (1.6-2.3)
[2020-06-13 08:00] VITALS: BP 129/80; PULSE 86; RESP 18; TEMP 36.8; O2SAT 97
[2020-06-13 08:21] VITALS: PULSE 80
[2020-06-13 08:48] LABS: Peripheral Smear Review Scanned Result
[2020-06-13 12:00] VITALS: BP 137/81; PULSE 80; PULSE 90; RESP 20; TEMP 36.6; O2SAT 94
--- NOTE | 2020-06-14 17:09 | HMH.DCSUM ---
General - General Admission date:: 06/11/20 Discharge date: 06/13/20 HPI HPI: 75-year-old male with COPD and BPH presented to the emergency department yesterday evening with witnessed seizure-like activity at home. Patient himself this morning does not recall the events of yesterday. I have spoken with a friend who he lives with to obtain history. She reports patient was not feeling well yesterday and initially came to the urgent treatment clinic. He has been complaining of malaise and weakness since his second Covid vaccine in the middle of May. Patient was given azithromycin and Zofran. He returned home and went immediately to bed. His friend checked on him later in the evening and that is when it was noticed he was seizing. Patient's friend reports stiffening of his body with his eyes rolling back in his head and inability to communicate. EMS was called and patient was brought to the emergency department. Patient was given IV benzodiazepine in route which stopped the seizing. Patient was also given Keppra in the emergency department. Patient's friend reports that the patient drinks whiskey daily and she suspects his last drink was 1 week ago. The patient himself reports drinking 2-3 beers a day and whiskey 1-2 times per week. While in the emergency department work-up also revealed what is believed to be new onset of atrial fibrillation. Patient was initially started on a Cardizem drip but then transition to oral Cardizem for rate control. Patient denies any history of cardiac problems Hospital Course Hospital Course: Patient was admitted for withdrawal seizure and electrolyte disturbances. Patient was admitted and scored using the CIWA scale. During the remainder of hospitalization patient did not require any further benzodiazepines nor show symptoms of alcohol withdrawal. Patient had multiple electrolyte disturbances including hypomagnesemia, hypokalemia, hypocalcemia which were corrected during hospitalization intravenously. Patient was also identified as having atrial fibrillation believed to be new in onset. He was given a Cardizem bolus in the emergency department and then transition immediately to oral Cardizem. Patient was given Cardizem ER 180 mg daily and his pulse rates declined to the 80s. Patient was started on anticoagulation with Eliquis 5 mg twice daily Patient was also found to be anemic. Additional anemia labs revealed iron deficiency. Patient denied history of upper GI bleed or symptoms of upper GI bleed. He will need screening colonoscopy in the future. On the day of discharge patient underwent echocardiogram which revealed ejection fraction of 55%. There is no significant valvular abnormalities. Patient was discharged home. He will follow-up in my office in 2 days. Patient normally seeks his care at the [facility] Vital signs: Temp Pulse Resp BP Pulse Ox 97.9 F 90 20 137/81 94 L 06/13/20 12:00 06/13/20 12:00 06/13/20 12:00 06/13/20 12:00 06/13/20 12:00 DS: Diagnosis - Discharge Diagnosis (1) Alcohol withdrawal seizure Status: Acute (2) Atrial fibrillation with RVR Status: Acute (3) Hypocalcemia Status: Acute (4) Hypomagnesemia Status: Acute (5) Hypokalemia Status: Acute (6) Iron deficiency anemia Status: Acute Discharge Plan - Patient Discharge Instructions ACTIVITY: Continue current activity DIET: continue same diet Patient Instructions: Atrial Fibrillation, DI for Seizure Disorder -- Adult, DI for Atrial Fibrillation, Drug and Alcohol Withdrawal, DI for Drug or Alcohol Withdrawal, Seizure Safety Precautions-Adult, Catheter-associated Urinary Tract Infection, DI for Hypomagnesemia - Follow up Plan Follow up with: Uday Blanco MD [Staff Physician] - 06/20/20 10:15 am Disposition: Home, Self-Nursing Home Medications: Home Medications Medication Instructions Recorded Confirmed Type Finasteride [Proscar 5mg Tab
== END 2020-06-13 12:55 | disposition home or self-care (01) ==
LOC: ER 22:40 → 2ND 06-11 00:40
PROVIDERS: Admitting Provider Family Medicine; Emergency Provider Student in an Organized Health Care Education/Training Program; Visit Provider Family Medicine
DX: F10.239 Alcohol dependence with withdrawal, unspecified (principal); J44.9 Chronic obstructive pulmonary disease, unspecified; N40.0 Benign prostatic hyperplasia without lower urinary tract symptoms; F17.210 Nicotine dependence, cigarettes, uncomplicated; R56.9 Unspecified convulsions; I48.91 Unspecified atrial fibrillation; E83.51 Hypocalcemia; E83.42 Hypomagnesemia; E87.6 Hypokalemia; D64.9 Anemia, unspecified
CPT/HCPCS: 36415; 70450; 71045; 71046; 80048; 80053; 81001; 82607; 82728; 82746; 82803; 82962; 83540; 83550; 83605; 83735; 83880; 84100; 84484; 85025; 85044; 85610; 85730; 87581; 87633; 87798; 93005; 93306; 96365; 96366; 96367; 96375; 99202; 99284; G0378; G0463; J1953

== ENCOUNTER 2022-07-24 08:07 | Inpatient (IN) | payer MEDICARE, OTHER, SELFPAY ==
[2022-07-24] VITALS (15 sets, daily range): BP systolic 109–141; BP diastolic 53–77; PULSE 84–105; RESP 17–24; TEMP 36.4–36.8; O2SAT 88–95; BMI 18.4; BMI 17.4
--- NOTE | 2022-07-24 08:06 | ECG_ITS ---
APPROVED REPORT Exam: Resting ECG HR:112 bpm ECG Measurements Heart Rate 112 AXES KS 116 P 83 QRSd 81 QRS 93 QT 367 T 68 QTc 433 Conclusion SINUS TACHYCARDIA WITH SHORT KS INTERVAL WITH OCCASIONAL VENTRICULAR PREMATURE COMPLEXES BORDERLINE RIGHT AXIS DEVIATION [QRS AXIS > 90] Late r wave progression ABNORMAL ECG UNCONFIRMED REPORT Electronically signed by : Uday Suh MD 07/24/2022 21:20:15
--- NOTE | 2022-07-24 08:16 | PC.NURSE ---
DR NG AT BEDSIDE
--- NOTE | 2022-07-24 08:17 | XR_ITS ---
FINAL REPORT CLINICAL HISTORY: CP @ sternum w SOA x 2 days. Former smoker, hx of emphysema, COPD COMPARISON: June 2020 FINDINGS: The heart size is normal. The mediastinum is within normal limits. The lungs are hyperinflated consistent with COPD. There are areas of scarring. There is improved left lung opacity. There is new right basilar opacity consistent with pneumonia. There is left apical scarring. There is no pleural effusion. There is no pneumothorax. The bony thorax is intact. IMPRESSION: Right basilar pneumonia. Reviewed, Interpreted and Dictated by Ish Mata III, MD Transcribed by Jaison Atkinson Authenticated and [facility]
[2022-07-24 08:25] LABS: Coronavirus 19, PCR Not Detected (NotDetected); Influenza A, PCR Not Detected (NotDetected); Influenza B, PCR Not Detected (NotDetected)
--- NOTE | 2022-07-24 08:26 | PC.NURSE ---
XR AT BEDSIDE
[2022-07-24 08:28] LABS: VBG Base Excess -2.1 mmol/L (-2.4-2.3); VBG Oxygen Saturation 85.7 % (50-70); VBG PCO2 47.8 mmol/L (35-51); VBG PH 7.32 mmol/L (7.31-7.41); VBG PO2 56.5 mmol/L (28-40); VBG Total CO2 25.5 mmol/L (23-27)
[2022-07-24 08:29] LABS: Chloride 95 mmol/L (98-107); Sodium 135 mmol/L (136-145)
[2022-07-24 08:30] LABS: Basophils % 0.1 % (0.1-2.0); Eosinophils # 0.1 K/mm3 (0.0-0.4); Eosinophils % 0.3 % (0.1-12.0); Hematocrit 36.9 % (42.0-52.0); Hemoglobin 12.1 g/dL (14.1-18.0); Lymphocytes # 1.5 K/mm3 (0.7-4.5); Lymphocytes % 9.6 % (10-50); Mean Corpuscular HGB Conc 32.8 g/dL (31.8-35.4); Mean Corpuscular Hemoglobin 31.2 pg (27.0-31.2); Mean Corpuscular Volume 95.3 fl (80-94); Mean Platelet Volume 8.4 fl (7.4-10.4); Monocytes % 6.6 % (1.7-9.3); Neutrophils # 13.1 K/mm3 (1.8-7.8); Neutrophils % 83.4 % (37.0-80.0); Platelet Count 402 K/mm3 (142-424); Red Blood Count 3.88 M/mm3 (4.60-6.20); Red Cell Distribution Width 13.4 % (11.5-17.5); White Blood Count 15.7 K/mm3 (4.8-10.8)
[2022-07-24 08:31] LABS: MANUAL DIFFERENTIAL MANUAL DIFFERENTIAL (MANUAL DIFF)
[2022-07-24 08:32] LABS: Alanine Aminotransferase 25 U/L (12-78); Albumin Level 3.3 g/dl (3.5-5.0); Albumin/Globulin Ratio 0.8 (1.1-1.8); Alkaline Phosphatase 82 U/L (38-126); Aspartate Amino Transferase 29 U/L (17-59); Bilirubin,Total 0.8 mg/dl (0.2-1.3); Blood Urea Nitrogen 23 mg/dl (9-20); Calcium 8.5 mg/dl (8.4-10.2); Carbon Dioxide 26 mmol/L (22.0-30.0); Creatinine Clearance Estimated 50 mL/min (50-200); Estimated Glomerular Filt Rate 82 ml/min (>60); GFR (African American) 99 ML/MIN (>60); Globulin 3.9 g/dL (1.3-3.2); Glucose 104 mg/dl (74-100); Magnesium 1.2 mg/dl (1.6-2.3); Total Protein,Serum 7.2 g/dl (6.3-8.2)
--- NOTE | 2022-07-24 08:32 | HMH.EDGENADL ---
Discharge Plan Disposition Patient Disposition: Admitted As Inpatient Chief Complaint: Shortness of Breath/Dyspnea Prescriptions Prescriptions: No Action tamsulosin 0.4 MG capsule 0.4 mg PO HS finasteride 5 MG tablet 5 mg PO DAILY tiotropium bromide 5 CAP capsule, w/inhalation device 2 cap IH DAILY omeprazole 20 MG capsule,delayed release(DR/EC) 20 mg PO BID diltiazem HCl 180 MG capsule,extended release 24hr 180 mg PO DAILY Qty: 30 0RF ferrous sulfate 325 MG tablet 325 mg PO DAILY Qty: 30 0RF folic acid 1 MG tablet 1 mg PO DAILY Qty: 30 0RF albuterol sulfate 200 PUFFS HFA aerosol inhaler 2 puffs IH Q4HP PRN (Reason: Shortness Of Breath) Qty: 1 0RF apixaban 5 MG tablet 5 mg PO BID Referrals Follow up/Referrals: Provider,Referral, MD [Primary Care Provider] - See instructions Clinical Impressions Clinical Impression: Pneumonia Discharge ED Provider: Tushar Julien General Adult HPI General Chief complaint: Shortness of Breath/Dyspnea Stated complaint: soa Time Seen by Provider: 07/24/22 08:10 Mode of Arrival: EMS Source of Information: Patient and EMS Limitations: No Limitations Description of Symptoms (Recalled from ER Triage Doc. by RN): PT BROUGHT IN VIA EMS FOR INCREASED SHORTNESS OF BREATH X 3 DAYS. PT REPORTS CHEST DISCOMFORT AND NON PRODUCTIVE COUGH. PER EMS PT O2 SAT 79% ON ROOM AIR UPON ARRIVAL. History of Present Illness HPI narrative: 77-year-old male with history of COPD presents with difficulty breathing for 3 days. He has chest tightness and nonproductive cough difficulty breathing when he takes a deep breath. He does not wear oxygen at home and per EMS his oxygen was 79% when they arrived. No fever has had productive cough. No nausea vomiting diarrhea or abdominal pain. No coughing up blood recent pulmonary embolism or blood clots he is on [employer] Related Data Home Medications Medication Instructions Recorded Confirmed finasteride 5 mg tablet 5 mg PO DAILY PROSTATE 06/10/20 07/24/22 tamsulosin 0.4 mg capsule 0.4 mg PO HS PROSTATE 06/10/20 07/24/22 tiotropium bromide 18 mcg capsule 2 cap IH DAILY COPD 06/10/20 07/24/22 with inhalation device omeprazole 20 mg capsule,delayed 20 mg PO BID GERD 06/11/20 07/24/22 release apixaban 5 mg tablet 5 mg PO BID Blood thinner 07/24/22 07/24/22 Previous Rx's Medication Instructions Recorded albuterol sulfate 90 mcg/actuation 2 puffs IH Q4HP PRN Shortness Of 06/13/20 aerosol inhaler Breath #1 puff diltiazem HCl 180 mg 180 mg PO DAILY ##30 06/13/20 capsule,extended release 24 hr ferrous sulfate 325 mg (65 mg 325 mg PO DAILY #30 tabs 06/13/20 iron) tablet folic acid 1 mg tablet 1 mg PO DAILY #30 tabs 06/13/20 Allergies Allergy/AdvReac Type Severity Reaction Status Date / Time No Known Allergies Allergy Verified 06/10/20 18:35 [facility] Disclaimer: The information contained in this section may have been updated after the patient was seen, as this information can be updated by other users. Social History Smoking Status: Current every day smoker alcohol intake: current substance use type: denies use current occupational status: retired Travel in the last 8 weeks: None ROS Obtained: Yes All systems reviewed & no additional complaints except as documented Constitutional Constitutional: Denies fatigue and Denies headache(s) Eyes Eyes: Denies dry eyes ENT Ears, Nose, Mouth, and Throat: Denies headache(s) Cardiovascular Cardiovascular: Reports dyspnea Respiratory Respiratory: Reports dyspnea Gastrointestinal Gastrointestingal: Denies coffee ground emesis Genitourinary Male Genitourinary: Denies flank pain Musculoskeletal Musculoskeletal: Denies joint swelling Integumentary/Breasts Skin/Breast: Denies dry skin Neurologic Neurologic: Denies headache(s) Endocrine Endocrine: Denies fatigue Hematologic/Lymphatic Henatologic/Lymphatic: Denies easy bleeding A
[2022-07-24 08:47] LABS: Lymphocytes % 6 % (10-50); Monocytes % 6 % (2-9); Neutrophils % 88 % (42-76); Platelet Estimate Slight Increase; RBC Morphology Normal; Total Cells Counted 100; Troponin I < 0.01 ng/ml (0.00-0.034)
--- NOTE | 2022-07-24 09:18 | PC.NURSE ---
pt sleeping in bed nothing needed at this time, tap luo at bedside
--- NOTE | 2022-07-24 09:45 | PC.NURSE ---
PT 85% ON ROOM AIR AT REST, PT REPORTS FEELING SOME BETTER PT AMBULATED WITH STANDBY ASSISTANCE, PT BECAME SHORT OF BREATH. ASSISTED BACK TO BED AND O2 REAPPLIED OF O2 SAT OF 79% ON ROOM AIR, DR NG NOTIFIED
--- NOTE | 2022-07-24 09:50 | PC.NURSE ---
DR NG AT BEDSIDE
--- NOTE | 2022-07-24 09:53 | PC.NURSE ---
calling [facility] transfer [facility] for transfer of pt
--- NOTE | 2022-07-24 10:00 | PC.NURSE ---
The md does not have a bed and gave permission to admit pt to our hospital and said his stay would be covered since no beds were available at the [facility]
--- NOTE | 2022-07-24 10:06 | PC.NURSE ---
PT UNABLE TO VERIFY ALL HOME MEDICATIONS
--- NOTE | 2022-07-24 10:12 | PC.NURSE ---
DR NG SPEAKING WITH HOSPITALIST FOR ADMISSION
--- NOTE | 2022-07-24 10:14 | PC.NURSE ---
CARE MANAGEMENT NOTIFIED OF ADMISSION
--- NOTE | 2022-07-24 10:17 | EXP.HP ---
History of Present Illness *Admission Date: 07/24/22 *Reason for visit:: Shortness of breath *History of present illness: Carroll Garcia is a 77 year old male with a past medical history of COPD, atrial fibrillation on Eliquis, BPH, cigarette nicotine dependence, alcohol use disorder and a history of withdrawal seizures. He presents with 2 weeks of worsening shortness of breath associated with a productive cough and wheezing. Sputum was initially yellow or green but over the past day has been red. In the ED the patient was found to be tachycardic and desaturated to 79% on RA while ambulating. CBC reveals 15K WBcs and CXR is with a right basilar pneumonia. He denies any recent hospitalization or use of antibiotics. He smokes 1 pack per day and has been smoking since his early twenties. Initial vitals: BP 141/77 - P 105 - RR 24 - T 98.2 degrees F - SpO2 95% on 2L Initial workup includes CBC with 15.7K WBCs, 88% neutrophils, VBG pH 7.32, pCO2 47, CXR with a right basilar pneumonia. [facility] Disclaimer: The information contained in this section may have been updated after the patient was seen, as this information can be updated by other users. Medical History (Updated 07/24/22 @ 12:39 by Byron Aguilar MD) Afib Alcohol abuse Appendicitis COPD (chronic obstructive pulmonary disease) GERD (gastroesophageal reflux disease) History of prostate disorder Hypertension Surgical History (Updated 07/24/22 @ 11:30 by Nicole Lopez RN) History of appendectomy Family History (Updated 07/24/22 @ 11:30 by Nicole Lopez RN) Other Family history of COPD (chronic obstructive pulmonary disease) Family history of hyperlipidemia Family history of hypertension Family history of myocardial infarction Social History (Updated 07/24/22 @ 11:31 by Nicole Lopez RN) Smoking Status: Current every day smoker alcohol intake: former substance use type: denies use current occupational status: retired Travel in the last 8 weeks: None Review of Systems Constitutional Constitutional: Reports system reviewed and no additional complaints, except as documented and Reports as per [facility] Meds Home Medications and Allergies Home Medications Medication Instructions Recorded Confirmed Type finasteride 5 mg tablet 5 mg PO DAILY prostate 06/10/20 07/24/22 History tamsulosin 0.4 mg capsule 0.4 mg PO HS prostate 06/10/20 07/24/22 History tiotropium bromide 18 mcg capsule 2 cap IH DAILY COPD 06/10/20 07/24/22 History with inhalation device omeprazole 20 mg capsule,delayed 20 mg PO BID Acid reflux 06/11/20 07/24/22 History release albuterol sulfate 90 mcg/actuation 2 puffs IH Q4HP PRN Shortness Of 06/13/20 07/24/22 Rx aerosol inhaler Breath #1 puff apixaban 5 mg tablet 5 mg PO BID Blood thinner/atrial 07/24/22 07/24/22 History fib fluticasone 250 mcg-salmeterol 50 1 inh inhalation BID Breathing 07/24/22 07/24/22 History mcg/dose blistr powdr for problems inhalation (Wixela Inhub) magnesium 1 tab PO BID Supplement 07/24/22 07/24/22 History metoprolol succinate 50 mg 25 mg PO DAILY High blood pressure 07/24/22 07/24/22 History tablet,extended release 24 hr (Toprol XL) nifedipine 30 mg tablet,extended 30 mg PO DAILY High blood pressure 07/24/22 07/24/22 History release rosuvastatin 20 mg tablet 10 mg PO HS Cholesterol 07/24/22 07/24/22 History New Prescriptions to Start Prescriptions: Allergies Allergy/AdvReac Type Severity Reaction Status Date / Time No Known Allergies Allergy Verified 06/10/20 18:35 Exam Data for Last 24 hours Vital signs and Labs for Last 24 Hours: Temp Pulse Resp BP Pulse Ox 98.2 F 93 H 24 111/60 93 L 07/24/22 08:08 07/24/22 10:00 07/24/22 08:08 07/24/22 10:00 07/24/22 10:00 Laboratory Results - last 24 hr 07/24/22 08:04: SARS-CoV-2 (PCR) Not detected, Influenza A Untype (PCR) Not detected, Influenza Type B (PCR) Not detected 07/24/22 08:04: WBC 15.7 H, RBC
--- NOTE | 2022-07-24 10:44 | PC.NURSE ---
report called to kevan jenkins
--- NOTE | 2022-07-24 11:00 | PC.NURSE ---
patient to 2nd floor via wheelchair with SRNA
--- NOTE | 2022-07-24 11:11 | P.CONPHA_ITS ---
Pharmacy Intervention Comments: [facility] [place].
[2022-07-24 12:06] LABS: Troponin I < 0.01 ng/ml (0.00-0.034)
--- NOTE | 2022-07-24 13:36 | PC.NURSE ---
SPUTUM SPECIMEN SENT TO LAB AT THIS TIME.
[2022-07-24 15:08] LABS: Troponin I < 0.01 ng/ml (0.00-0.034)
[2022-07-25] VITALS (13 sets, daily range): BP systolic 96–132; BP diastolic 51–75; PULSE 60–91; RESP 16–22; TEMP 36.3–36.8; O2SAT 91–97; BMI 17.5
--- NOTE | 2022-07-25 02:39 | PC.NURSE ---
RESP CARE NOTE pt wake @ 0200 TX given at this time.
--- NOTE | 2022-07-25 05:48 | PC.NURSE ---
Pt has not voiced any c/o to staff t/o shift. Pt continues on 2 L nc tolerating well with sats in mid 90s. Pt ambulated around room but stated he was becoming SOA with little exertion. Call light within reach.
[2022-07-25 06:43] LABS: Basophils % 0.1 % (0.1-2.0); Eosinophils # 0.1 K/mm3 (0.0-0.4); Eosinophils % 0.6 % (0.1-12.0); Hematocrit 32.8 % (42.0-52.0); Lymphocytes # 0.5 K/mm3 (0.7-4.5); Lymphocytes % 5.5 % (10-50); Mean Corpuscular HGB Conc 32.1 g/dL (31.8-35.4); Mean Corpuscular Volume 96.6 fl (80-94); Mean Platelet Volume 8.2 fl (7.4-10.4); Monocytes # 0.3 K/mm3 (0.1-1.0); Monocytes % 3.1 % (1.7-9.3); Neutrophils # 8.2 K/mm3 (1.8-7.8); Neutrophils % 90.7 % (37.0-80.0); Platelet Count 453 K/mm3 (142-424); Red Blood Count 3.39 M/mm3 (4.60-6.20); Red Cell Distribution Width 13.4 % (11.5-17.5)
[2022-07-25 06:45] LABS: MANUAL DIFFERENTIAL MANUAL DIFFERENTIAL (MANUAL DIFF)
[2022-07-25 06:56] LABS: Hemoglobin 10.6 g/dL (14.1-18.0)
[2022-07-25 07:04] LABS: Anion Gap 14.7 mEq/L (5-15); Blood Urea Nitrogen 33 mg/dl (9-20); Calcium 8.3 mg/dl (8.4-10.2); Carbon Dioxide 28 mmol/L (22.0-30.0); Chloride 97 mmol/L (98-107); Creatinine Clearance Estimated 48 mL/min (50-200); Estimated Glomerular Filt Rate 110 ml/min (>60); GFR (African American) 133 ML/MIN (>60); Glucose 179 mg/dl (74-100); Potassium 3.7 mmoL/L (3.5-5.1); Sodium 136 mmol/L (136-145)
[2022-07-25 07:28] LABS: Lymphocytes % 6 % (10-50); Monocytes % 2 % (2-9); Neutrophils % 92 % (42-76); Total Cells Counted 100
[2022-07-25 07:29] LABS: Platelet Estimate Slight Increase; RBC Morphology Normal
--- NOTE | 2022-07-25 07:32 | EXP.PN ---
Subjective *Date: 07/25/22 *Time: 10:22 Interval history: This morning he was saturating 88% on room air. CBC is improved with 9K WBCs, decreased from 15.7K. Magnesium is low at 1.2 No acute events overnight. Dyspnea is unchanged compared to yesterday. Exam Data for Last 24 hours Vital signs and Labs for Last 24 Hours: Temp Pulse Resp BP Pulse Ox 97.6 F 88 17 123/75 92 L 07/25/22 04:00 07/25/22 06:21 07/25/22 04:00 07/25/22 04:00 07/25/22 06:21 Laboratory Results - last 24 hr 07/24/22 08:04: SARS-CoV-2 (PCR) Not detected, Influenza A Untype (PCR) Not detected, Influenza Type B (PCR) Not detected 07/24/22 08:04: WBC 15.7 H, RBC 3.88 L, Hgb 12.1 L, Hct 36.9 L, MCV 95.3 H, MCH 31.2, MCHC 32.8, RDW 13.4, Plt Count 402, MPV 8.4, Neut % (Auto) 83.4 H, Lymph % (Auto) 9.6 L, [place] % (Auto) 6.6, Eos % (Auto) 0.3, Baso % (Auto) 0.1, Neut # (Auto) 13.1 H, Lymph # (Auto) 1.5, [place] # (Auto) 1.0, Eos # (Auto) 0.1, Baso # (Auto) 0.0, Total Counted 100, Neutrophils % (Manual) 88 H, Lymphocytes % (Manual) 6 L, Monocytes % (Manual) 6, Platelet Estimate Slight increase, RBC Morphology Normal 07/24/22 08:04: Sodium 135 L, Potassium 4.0, Chloride 95 L, Carbon Dioxide 26, Anion Gap 18.0 H, BUN 23 H, Creatinine 0.90, Estimated Creat Clear 50, Estimated GFR 82, Est GFR ( Amer) 99, Glucose 104 H, Calcium 8.5, Magnesium 1.2 L, Total Bilirubin 0.8, AST 29, ALT 25, Alkaline Phosphatase 82, Troponin I < 0.01, Total Protein 7.2, Albumin 3.3 L, Globulin 3.9 H, Albumin/Globulin Ratio 0.8 L 07/24/22 08:20: VBG pH 7.32, VBG pCO2 47.8, VBG pO2 56.5 H, VBG HCO3 24.0, VBG Total CO2 25.5, VBG O2 Saturation 85.7 H, VBG Base Excess -2.1 07/24/22 11:22: Troponin I < 0.01 07/24/22 14:39: Troponin I < 0.01 07/25/22 06:30: WBC 9.0 D, RBC 3.39 L, Hgb 10.6 L D, Hct 32.8 L, MCV 96.6 H, MCH 31.0, MCHC 32.1, RDW 13.4, Plt Count 453 H, MPV 8.2, Neut % (Auto) 90.7 H, Lymph % (Auto) 5.5 L, [place] % (Auto) 3.1, Eos % (Auto) 0.6, Baso % (Auto) 0.1, Neut # (Auto) 8.2 H, Lymph # (Auto) 0.5 L, [place] # (Auto) 0.3, Eos # (Auto) 0.1, Baso # (Auto) 0.0, Total Counted 100, Neutrophils % (Manual) 92 H, Lymphocytes % (Manual) 6 L, Monocytes % (Manual) 2, Platelet Estimate Slight increase, RBC Morphology Normal 07/25/22 06:30: Sodium 136, Potassium 3.7, Chloride 97 L, Carbon Dioxide 28, Anion Gap 14.7, BUN 33 H D, Creatinine 0.70 D, Estimated Creat Clear 48, Estimated GFR 110, Est GFR ( Amer) 133 D, Glucose 179 H D, Calcium 8.3 L I & O for Last 24 hours: Intake & Output 07/22/22 07/23/22 07/24/22 07/25/22 23:59 23:59 23:59 23:59 Intake Total 360 / 360 Output Total 200 / 300 300 / 300 Balance 160 / 60 -300 / -300 Weight 53.722 kg 53.751 kg Microbiology Reports for the Last 24 Hours: Microbiology 07/24/22 13:33 Sputum - Expectorated Sputum Gram Stain - Final Constitutional Constitutional: no acute distress *Routine HEENT Exam Head: Present normocephalic Eye: Present EOMI and PERRL ENT: Present mucous membranes moist *Routine Neck Exam Neck: Present supple; Absent lymphadenopathy *Routine Respiratory Exam Respiratory: Present prolonged expiratory phase and wheezes (moderate wheezes scattered bilaterally R>L) *Routine Cardiovascular Exam Cardiovascular: Present RRR *Routine Abdominal Exam Abdominal: Present soft and normoactive bowel sounds; Absent tenderness *Routine Extremities Exam Extremities: Absent cyanosis, clubbing or edema *Routine Skin Exam Skin: Present warm; Absent rash *Routine Neurological Exam Neurological: Present alert and oriented X3 Assessment and Plan *Assessment and plan (1) Pneumonia: Status: Acute Category: Medical Code(s): J18.9 - Pneumonia, unspecified organism (2) Acute respiratory failure with hypoxia: Status: Acute Category: Medical Code(s): J96.01 - Acute respiratory failure with hypoxia (3) COPD exacerbation: Status: Acute Category: Medical Code(s): J44.1
--- NOTE | 2022-07-25 18:28 | PC.NURSE ---
pt remains on 2L NC, O2 sats 91-92%, has had a couple of episodes of SOA when removing O2, has ambulated in room and sat in chair today
[2022-07-26] VITALS (13 sets, daily range): BP systolic 100–138; BP diastolic 56–72; PULSE 70–82; RESP 19–24; TEMP 36.3–36.6; O2SAT 90–97; BMI 17.9
--- NOTE | 2022-07-26 02:50 | PC.NURSE ---
Pt has not voiced any c/o pain tonight. Pt continues on 2 L nc tolerating well with sats in mid 90s. Pt is up astol with some soa when ambulating. Plan is to d/c home in the am.
[2022-07-26 06:34] LABS: Basophils % 0.1 % (0.1-2.0); Hematocrit 31.9 % (42.0-52.0); Hemoglobin 10.1 g/dL (14.1-18.0); Lymphocytes # 0.6 K/mm3 (0.7-4.5); Mean Corpuscular HGB Conc 31.6 g/dL (31.8-35.4); Mean Corpuscular Hemoglobin 31.4 pg (27.0-31.2); Mean Corpuscular Volume 99.3 fl (80-94); Mean Platelet Volume 8.2 fl (7.4-10.4); Monocytes # 0.3 K/mm3 (0.1-1.0); Neutrophils # 8.2 K/mm3 (1.8-7.8); Neutrophils % 90.8 % (37.0-80.0); Platelet Count 483 K/mm3 (142-424); Red Blood Count 3.21 M/mm3 (4.60-6.20); Red Cell Distribution Width 13.6 % (11.5-17.5)
[2022-07-26 06:40] LABS: Blood Urea Nitrogen 35 mg/dl (9-20); Calcium 8.1 mg/dl (8.4-10.2); Carbon Dioxide 30 mmol/L (22.0-30.0); Chloride 101 mmol/L (98-107); Creatinine Clearance Estimated 49 mL/min (50-200); Estimated Glomerular Filt Rate 110 ml/min (>60); GFR (African American) 133 ML/MIN (>60); Glucose 165 mg/dl (74-100); Magnesium 2.7 mg/dl (1.6-2.3); Sodium 140 mmol/L (136-145)
[2022-07-26 06:54] LABS: MANUAL DIFFERENTIAL MANUAL DIFFERENTIAL (MANUAL DIFF)
--- NOTE | 2022-07-26 07:38 | EXP.PN ---
Subjective *Date: 07/26/22 *Time: 10:23 Interval history: CBC is with 9K WBCs, similar to yesterday. He feel less short of breath today. Denies pain. Exam Data for Last 24 hours Vital signs and Labs for Last 24 Hours: Temp Pulse Resp BP Pulse Ox 97.9 F 70 19 109/56 L 92 L 07/26/22 04:00 07/26/22 06:25 07/26/22 04:00 07/26/22 04:00 07/26/22 06:25 Laboratory Results - last 24 hr 07/26/22 06:00: Sodium 140, Potassium 4.0, Chloride 101, Carbon Dioxide 30, Anion Gap 13.0, BUN 35 H, Creatinine 0.70, Estimated Creat Clear 49, Estimated GFR 110, Est GFR ( Amer) 133, Glucose 165 H, Calcium 8.1 L, Magnesium 2.7 H D 07/26/22 06:00: WBC 9.0, RBC 3.21 L, Hgb 10.1 L, Hct 31.9 L, MCV 99.3 H, MCH 31.4 H, MCHC 31.6 L, RDW 13.6, Plt Count 483 H, MPV 8.2, Neut % (Auto) 90.8 H, Lymph % (Auto) 6.0 L, [place] % (Auto) 3.0, Eos % (Auto) 0.0 L, Baso % (Auto) 0.1, Neut # (Auto) 8.2 H, Lymph # (Auto) 0.6 L, [place] # (Auto) 0.3, Eos # (Auto) 0.0, Baso # (Auto) 0.0 I & O for Last 24 hours: Intake & Output 07/23/22 07/24/22 07/25/22 07/26/22 23:59 23:59 23:59 23:59 Intake Total 360 / 360 840 / 840 Output Total 200 / 300 300 / 300 0 / 0 Balance 160 / 60 540 / 540 0 / 0 Weight 53.722 kg 53.75 kg 54.93 kg Constitutional Constitutional: no acute distress *Routine HEENT Exam Head: Present normocephalic Eye: Present EOMI and PERRL ENT: Present mucous membranes moist *Routine Neck Exam Neck: Present supple; Absent lymphadenopathy *Routine Respiratory Exam Respiratory: Present wheezes (mild, scattered, bilateral) *Routine Cardiovascular Exam Cardiovascular: Present RRR *Routine Abdominal Exam Abdominal: Present soft and normoactive bowel sounds; Absent tenderness *Routine Extremities Exam Extremities: Absent cyanosis, clubbing or edema *Routine Skin Exam Skin: Present warm; Absent rash *Routine Neurological Exam Neurological: Present alert and oriented X3 Assessment and Plan *Assessment and plan (1) Pneumonia: Status: Acute Category: Medical Code(s): J18.9 - Pneumonia, unspecified organism (2) Acute respiratory failure with hypoxia: Status: Acute Category: Medical Code(s): J96.01 - Acute respiratory failure with hypoxia (3) COPD exacerbation: Status: Acute Category: Medical Code(s): J44.1 - Chronic obstructive pulmonary disease with (acute) exacerbation Plan Carroll Garcia is a 77 year old male with a past medical history of COPD, atrial fibrillation on Eliquis, BPH, cigarette nicotine dependence, alcohol use disorder and a history of withdrawal seizures. He presented with 2 weeks of shortness of breath and was admitted on 07/24 with RLL pneumonia and COPD exacerbation. #acute hypoxic respiratory failure #R basilar pneumonia, acute #COPD exacerbation #active cigarette smoker #hypomagnesemia #atrial fibrillation #BPH Continue Rocephin and azithromycin. Will decrease dose of solumedrol from 40 Q8 to BID. Follow sputum and blood cultures. Sputum culture is pending, gram stain reveals gram positive cocci in chains and gram positive diplococci. Ambulate BID Wean supplemental oxygen as tolerated. At baseline he doesn't use supplemental oxygen. This morning he was saturating 92% on RA but desaturated to 86% with ambulation. Replete Magnesium as needed. I will order a CBC and BMP level for tomorrow morning. DVT ppx: already on anticoagulation Full code Regular diet Anticipate d/c to home tomorrow; he will need ambulatory saturations prior to discharge.
[2022-07-26 07:58] LABS: Lymphocytes % 6 % (10-50); Neutrophils % 94 % (42-76); Total Cells Counted 100
[2022-07-26 07:59] LABS: Platelet Estimate Slight Increase; RBC Morphology Normal
--- NOTE | 2022-07-26 08:54 | PC.NURSE ---
Addendum entered by Loly Bansal RN 07/27/22 08:40: O2 SAT ON 2LNC WHILE AMBULATIN%. Original Note: PT RA AMBULATORY O2 SAT: 86%. PT RA O2 SAT AT REST: 92%.
--- NOTE | 2022-07-26 13:44 | PC.NURSE ---
Rounded on patient. Only complaint noted was a sore throat from a cough. Primary RN notified. Call luo in reach.
--- NOTE | 2022-07-26 16:46 | PC.NURSE ---
A&OX4. TOLERATING 1LNC WELL AT THIS TIME, O2 SAT IN LOWER 90S. HAS BEEN AMBULATING THIS SHIFT WITH STANDBY ASSIST, TOLERATING WELL. PT HAS HAD NO C/O THIS SHIFT THUS FAR. DOES HAVE DRY INTERMITTENT COUGH. VSS.
[2022-07-27] VITALS: O2SAT 97
[2022-07-27 04:00] VITALS: BP 150/81; PULSE 75; RESP 20; TEMP 36.4; O2SAT 96; BMI 18.3
--- NOTE | 2022-07-27 05:30 | PC.NURSE ---
0527- Pt requesting breathing tx after ambulating to BR and becoming SOA. Pt O2 on 2LNC was 84%. Pt instructed to take deep breaths through nose and out mouth, pt sitting upright on side of the bed. RT paged for am breathing tx. Pt O2 up to 91% after a few minutes. Lung sounds as listed: RUL- rhonchi w/ expiratory wheeze RLL- diminished w/ crackles ANDRES-clear LLL-crackles
[2022-07-27 05:40] VITALS: PULSE 85; PULSE 90; O2SAT 94
[2022-07-27 06:23] LABS: Basophils % 0.1 % (0.1-2.0); Eosinophils % 0.1 % (0.1-12.0); Hematocrit 33.4 % (42.0-52.0); Hemoglobin 10.7 g/dL (14.1-18.0); Lymphocytes # 0.7 K/mm3 (0.7-4.5); Lymphocytes % 6.3 % (10-50); Mean Corpuscular Hemoglobin 31.4 pg (27.0-31.2); Mean Platelet Volume 8.5 fl (7.4-10.4); Monocytes # 0.3 K/mm3 (0.1-1.0); Monocytes % 2.4 % (1.7-9.3); Neutrophils # 10.1 K/mm3 (1.8-7.8); Neutrophils % 91.1 % (37.0-80.0); Platelet Count 599 K/mm3 (142-424); Red Blood Count 3.41 M/mm3 (4.60-6.20); Red Cell Distribution Width 13.3 % (11.5-17.5); White Blood Count 11.1 K/mm3 (4.8-10.8)
[2022-07-27 06:32] LABS: MANUAL DIFFERENTIAL MANUAL DIFFERENTIAL (MANUAL DIFF)
[2022-07-27 06:37] LABS: Anion Gap 15.8 mEq/L (5-15); Blood Urea Nitrogen 38 mg/dl (9-20); Calcium 8.4 mg/dl (8.4-10.2); Carbon Dioxide 30 mmol/L (22.0-30.0); Chloride 102 mmol/L (98-107); Creatinine Clearance Estimated 50 mL/min (50-200); Estimated Glomerular Filt Rate 82 ml/min (>60); GFR (African American) 99 ML/MIN (>60); Glucose 143 mg/dl (74-100); Potassium 4.8 mmoL/L (3.5-5.1); Sodium 143 mmol/L (136-145)
[2022-07-27 07:47] VITALS: BP 138/80; PULSE 87; RESP 20; TEMP 36.6; O2SAT 96
[2022-07-27 08:24] LABS: Lymphocytes % 7 % (10-50); Neutrophils % 93 % (42-76); Total Cells Counted 100
[2022-07-27 08:25] LABS: Platelet Estimate Moderate Increase; RBC Morphology Normal
--- NOTE | 2022-07-27 08:33 | EXP.PHA.PN ---
Subjective *Date: 07/27/22 *Time: 08:33 Medical Exam Vital signs and Labs for Last 24 Hours: Vital Signs Temp Pulse Pulse Resp BP Pulse Ox 07/27/22 07:47 97.8 F 87 20 138/80 96 07/27/22 05:40 85 07/27/22 05:40 90 07/27/22 05:40 94 L 07/27/22 04:00 97.5 F L 75 20 150/81 H 96 07/27/22 00:00 97 07/26/22 23:45 97.6 F 79 20 138/72 97 07/26/22 21:59 94 L 07/26/22 20:00 95 07/26/22 21:41 80 07/26/22 21:41 80 07/26/22 20:00 97.9 F 81 20 130/70 95 07/26/22 17:50 82 07/26/22 17:50 81 07/26/22 17:50 95 07/26/22 16:00 90 L 07/26/22 16:00 97.4 F L 80 20 102/57 L 90 L 07/26/22 13:45 82 07/26/22 13:45 82 07/26/22 12:00 97.6 F 78 20 100/65 L 91 L 07/26/22 10:27 81 07/26/22 10:27 78 07/26/22 08:41 94 L Intake and Output 07/26/22 07/27/22 07/27/22 23:59 07:59 15:59 Intake Total 240 / 720 540 / 540 Output Total 0 / 0 0 / 0 Balance 240 / 720 0 / 540 540 / 540 Intake: Intake, Oral Amount 240 / 720 540 / 540 Output: Output, Urine Amount 0 / 0 0 / 0 Other: Number of Unmeasured Voids 0 1 Weight 56.302 kg Patient Weight 07/27/22 23:59 Weight 56.302 kg Laboratory Results - last 24 hr 07/27/22 06:10: WBC 11.1 H, RBC 3.41 L, Hgb 10.7 L, Hct 33.4 L, MCV 98.0 H, MCH 31.4 H, MCHC 32.0, RDW 13.3, Plt Count 599 H, MPV 8.5, Neut % (Auto) 91.1 H, Lymph % (Auto) 6.3 L, [place] % (Auto) 2.4, Eos % (Auto) 0.1, Baso % (Auto) 0.1, Neut # (Auto) 10.1 H, Lymph # (Auto) 0.7, [place] # (Auto) 0.3, Eos # (Auto) 0.0, Baso # (Auto) 0.0, Total Counted 100, Neutrophils % (Manual) 93 H, Lymphocytes % (Manual) 7 L, Platelet Estimate Moderate increase, RBC Morphology Normal 07/27/22 06:10: Sodium 143, Potassium 4.8, Chloride 102, Carbon Dioxide 30, Anion Gap 15.8 H, BUN 38 H, Creatinine 0.90 D, Estimated Creat Clear 50, Estimated GFR 82, Est GFR ( Amer) 99 D, Glucose 143 H, Calcium 8.4 I & O for Labs for Last 24 Hours: Intake & Output 07/24/22 07/25/22 07/26/22 07/27/22 23:59 23:59 23:59 23:59 Intake Total 360 / 360 840 / 840 720 / 720 540 / 540 Output Total 200 / 300 300 / 300 0 / 0 0 / 0 Balance 160 / 60 540 / 540 720 / 720 540 / 540 Weight 53.722 kg 53.75 kg 54.93 kg 56.302 kg Microbiology Reports for the Last 24 Hours: Microbiology 07/24/22 13:33 Sputum - Expectorated Sputum Gram Stain - Final 07/24/22 13:33 Sputum - Expectorated Sputum Sputum Culture - Preliminary Gram Negative Rods Gram Negative Rods#2 07/24/22 08:10 Blood Blood Culture - Preliminary NO GROWTH AFTER 48 HOURS 07/24/22 08:10 Blood Blood Culture - Preliminary NO GROWTH AFTER 48 HOURS The patient's infection will respond to the chosen ABx?: Yes (SPUTUM GNR X2, ID PENDING, WBC SLIGHTLY ELEVATED, AFEBRILE.) Is the patient receiving the right drug, dose, and route?: Yes Could a more targeted ABx be ordered?: No
--- NOTE | 2022-07-27 08:45 | EXP.DC.SUM ---
General Admission date:: 07/24/22 HPI HPI HPI: Carroll Garcia is a 77 year old male with a past medical history of COPD, atrial fibrillation on Eliquis, BPH, cigarette nicotine dependence, alcohol use disorder and a history of withdrawal seizures. He presents with 2 weeks of worsening shortness of breath associated with a productive cough and wheezing. Sputum was initially yellow or green but over the past day has been red. In the ED the patient was found to be tachycardic and desaturated to 79% on RA while ambulating. CBC reveals 15K WBcs and CXR is with a right basilar pneumonia. He denies any recent hospitalization or use of antibiotics. He smokes 1 pack per day and has been smoking since his early twenties. Initial vitals: BP 141/77 - P 105 - RR 24 - T 98.2 degrees F - SpO2 95% on 2L Initial workup includes CBC with 15.7K WBCs, 88% neutrophils, VBG pH 7.32, pCO2 47, CXR with a right basilar pneumonia. Hospital Course Hospital Course Hospital Course: Patient was admitted with COPD exacerbation and pneumonia. Patient was started on azithromycin and ceftriaxone in addition to steroids. Patient had clinical improvement with therapy, feeling much better. He continues to have desaturations with ambulation, however respiratory status is improved and he has significatn symptom improvement. Requesting discharge. Discussed going home with home o2 and follow up with PCP and pulmonology linic. Pt agreeagble. Sputum + for gram positive cocci in chains and gram positive diplococci, will follow up cultures and adjust outpatient abx if necessary. Will discharge with prednisone 40 (3days) for total treatment of 5 days. Will discharge with azythro and augmentin for CAP. Exam Data for Last 24 hours Vital signs and Labs for Last 24 Hours: Temp Pulse Resp BP Pulse Ox 97.8 F 87 20 138/80 96 07/27/22 07:47 07/27/22 07:47 07/27/22 07:47 07/27/22 07:47 07/27/22 07:47 Laboratory Results - last 24 hr 07/27/22 06:10: WBC 11.1 H, RBC 3.41 L, Hgb 10.7 L, Hct 33.4 L, MCV 98.0 H, MCH 31.4 H, MCHC 32.0, RDW 13.3, Plt Count 599 H, MPV 8.5, Neut % (Auto) 91.1 H, Lymph % (Auto) 6.3 L, [place] % (Auto) 2.4, Eos % (Auto) 0.1, Baso % (Auto) 0.1, Neut # (Auto) 10.1 H, Lymph # (Auto) 0.7, [place] # (Auto) 0.3, Eos # (Auto) 0.0, Baso # (Auto) 0.0, Total Counted 100, Neutrophils % (Manual) 93 H, Lymphocytes % (Manual) 7 L, Platelet Estimate Moderate increase, RBC Morphology Normal 07/27/22 06:10: Sodium 143, Potassium 4.8, Chloride 102, Carbon Dioxide 30, Anion Gap 15.8 H, BUN 38 H, Creatinine 0.90 D, Estimated Creat Clear 50, Estimated GFR 82, Est GFR ( Amer) 99 D, Glucose 143 H, Calcium 8.4 I & O for Last 24 hours: Intake & Output 07/24/22 07/25/22 07/26/22 07/27/22 23:59 23:59 23:59 23:59 Intake Total 360 / 360 840 / 840 720 / 720 540 / 540 Output Total 200 / 300 300 / 300 0 / 0 0 / 0 Balance 160 / 60 540 / 540 720 / 720 540 / 540 Weight 53.722 kg 53.75 kg 54.93 kg 56.302 kg Microbiology Reports for the Last 24 Hours: Microbiology 07/24/22 13:33 Sputum - Expectorated Sputum Gram Stain - Final 07/24/22 13:33 Sputum - Expectorated Sputum Sputum Culture - Preliminary Gram Negative Rods Gram Negative Rods#2 07/24/22 08:10 Blood Blood Culture - Preliminary NO GROWTH AFTER 48 HOURS 07/24/22 08:10 Blood Blood Culture - Preliminary NO GROWTH AFTER 48 HOURS Constitutional Constitutional: no acute distress *Routine HEENT Exam Head: Present normocephalic Eye: Present EOMI and PERRL ENT: Present mucous membranes moist *Routine Neck Exam Neck: Present supple; Absent lymphadenopathy *Routine Respiratory Exam Respiratory: Present wheezes (mild, scattered, bilateral) *Routine Cardiovascular Exam Cardiovascular: Present RRR *Routine Abdominal Exam Abdominal: Present soft and normoactive bowel sounds; Absent tenderness *R
--- NOTE | 2022-07-27 08:59 | HMH.PHAINT1 ---
Pharmacy Intervention Comments: DISCHARGE MEDICATION COUNSELING PROVIDED. DISCUSSED THE FOLLOWING NEW MEDICATIONS: -AUGMENTIN (ANTIBIOTIC, TWICE DAILY, START TONIGHT, TAKE WITH FOOD, N/V/D POSSIBLE) -AZITHROMYCIN (ANTIBIOTIC, DAILY, START TOMORROW, TAKE WITH FOOD, N/V/D POSSIBLE) -MUCINEX (FOR SECRETIONS/PHLEGM, TWICE DAILY, MAY CAUSE DROWSINESS, DIZZINESS, HEADACHE) -PREDNISONE (STEROID, DAILY, START TOMORROW, TAKE WITH FOOD, TAKE IN THE MORNING, MAY CAUSE INSOMNIA, NAUSEA) PATIENT VERBALIZED NO QUESTIONS AT THIS TIME.
--- NOTE | 2022-07-27 09:14 | PC.NURSE ---
SRNA Note: pt ambulated to and from bathroom x2
--- NOTE | 2022-07-27 09:31 | CARE MANAGER ---
Sent information for Oxygen to [facility].
--- NOTE | 2022-07-31 13:19 | CARE MANAGER ---
Called and spoke with Garcia regarding recent discharge. Patient states he is doing well, no complaints voiced at time of call.
== END 2022-07-27 10:57 | disposition home or self-care (01) | DRG 178 ==
LOC: ER 10:14 → 2ND 11:03
PROVIDERS: Admitting Provider Internal Medicine; Emergency Provider Emergency Medicine; Visit Provider Internal Medicine
DX: J15.6 Pneumonia due to other Gram-negative bacteria (principal); J44.0 Chronic obstructive pulmonary disease with (acute) lower respiratory infection; J44.1 Chronic obstructive pulmonary disease with (acute) exacerbation; J18.9 Pneumonia, unspecified organism; E83.42 Hypomagnesemia; I48.91 Unspecified atrial fibrillation; N40.0 Benign prostatic hyperplasia without lower urinary tract symptoms
CPT/HCPCS: 36415; 71045; 80048; 80053; 82803; 83735; 84484; 85007; 85025; 87040; 87070; 87077; 87186; 87205; 87636; 93005; 94640; 94761; 99285; C9803; J0456; J0696; J3475; U0003; U0005

== ENCOUNTER 2022-11-06 09:49 | Emergency (ER) | payer MEDICARE, OTHER, SELFPAY ==
[2022-11-06] VITALS (8 sets, daily range): BP systolic 116–151; BP diastolic 74–91; PULSE 73–89; RESP 18–20; TEMP 36.9; O2SAT 92–100; BMI 17.9; BMI 17.4
--- NOTE | 2022-11-06 09:52 | XR_ITS ---
FINAL REPORT CLINICAL HISTORY: SOA COMPARISON: 07/24/2022 FINDINGS: SINGLE-VIEW CHEST The heart size is normal. The mediastinum is normal. There is severe emphysema. Note is made of scarring. There is mild right base atelectasis or pneumonia. There is no pneumothorax. IMPRESSION: Right base atelectasis versus pneumonia. Reviewed, Interpreted and Dictated by Ish Mata III, MD Transcribed by Fifi Andrade Authenticated and [facility]
--- NOTE | 2022-11-06 09:53 | ECG_ITS ---
APPROVED REPORT Exam: Resting ECG HR:80 bpm ECG Measurements Heart Rate 80 AXES WY 110 P 80 QRSd 90 QRS 92 QT 400 T 79 QTc 436 Conclusion SINUS RHYTHM WITH SHORT WY INTERVAL BORDERLINE RIGHT AXIS DEVIATION Late R wave progression ABNORMAL ECG UNCONFIRMED REPORT Electronically signed by : Uday Suh MD 11/06/2022 19:55:24
[2022-11-06 10:01] LABS: Basophils % 0.5 % (0.1-2.0); Eosinophils # 0.1 K/mm3 (0.0-0.4); Eosinophils % 1.7 % (0.1-12.0); Hematocrit 33.6 % (42.0-52.0); Hemoglobin 10.8 g/dL (14.1-18.0); Lymphocytes # 1.6 K/mm3 (0.7-4.5); Lymphocytes % 22.9 % (10-50); Mean Corpuscular HGB Conc 32.2 g/dL (31.8-35.4); Mean Corpuscular Hemoglobin 28.7 pg (27.0-31.2); Mean Corpuscular Volume 89.1 fl (80-94); Mean Platelet Volume 8.3 fl (7.4-10.4); Monocytes # 0.5 K/mm3 (0.1-1.0); Monocytes % 6.6 % (1.7-9.3); Neutrophils # 4.8 K/mm3 (1.8-7.8); Neutrophils % 68.4 % (37.0-80.0); Platelet Count 476 K/mm3 (142-424); Red Blood Count 3.77 M/mm3 (4.60-6.20); Red Cell Distribution Width 14.1 % (11.5-17.5)
[2022-11-06 10:04] LABS: Chloride 101 mmol/L (98-107)
[2022-11-06 10:05] LABS: Potassium 3.9 mmoL/L (3.5-5.1); Sodium 139 mmol/L (136-145)
[2022-11-06 10:07] LABS: Alanine Aminotransferase 19 U/L (12-78); Alkaline Phosphatase 92 U/L (38-126); Aspartate Amino Transferase 25 U/L (17-59); Bilirubin,Total 0.3 mg/dl (0.2-1.3); Blood Urea Nitrogen 20 mg/dl (9-20); Creatinine Clearance Estimated 48 mL/min (50-200); Estimated Glomerular Filt Rate 94 ml/min (>60); GFR (African American) 114 ML/MIN (>60)
[2022-11-06 10:08] LABS: Albumin Level 3.2 g/dl (3.5-5.0); Albumin/Globulin Ratio 0.8 (1.1-1.8); Anion Gap 10.9 mEq/L (5-15); Calcium 7.7 mg/dl (8.4-10.2); Carbon Dioxide 31 mmol/L (22.0-30.0); Globulin 3.9 g/dL (1.3-3.2); Glucose 90 mg/dl (74-100); Total Protein,Serum 7.1 g/dl (6.3-8.2)
--- NOTE | 2022-11-06 10:22 | CT_ITS ---
FINAL REPORT CLINICAL HISTORY: R lower lung chest wall pain COMPARISON: None FINDINGS: Thin section axial CT images of the chest were obtained with contrast. This study was performed with techniques to keep radiation doses as low as reasonably achievable (ALARA). Individualized dose reduction techniques using automated exposure control or adjustment of mA and/or kV according to the patient's size were employed. There is right hilar mass/adenopathy measuring 28 mm. There are other borderline left hilar and mediastinal nodes present as well. There are also multiple enlarged right infrahilar nodes. There are severe changes of emphysema and moderate scarring in the lung cook bilaterally. There are multifocal nodular opacities in the right middle lobe and both lower lobes, greater on the right side. Inflammatory changes favored rather than neoplastic involvement, and may represent pneumonia or mycobacterial/fungal infection. There is a 13 mm nodule adjacent to the major fissure on the left side, that may represent an enlarged lymph node. There is a small right pleural effusion. There are multiple chronic posterior right rib fractures present. There are small nonobstructing renal stones, as well as a gallstone seen in the gallbladder. There are several small hyperdense cysts in the left kidney. There is likely gastric wall thickening present as well. IMPRESSION: Multifocal nodular irregular opacities in the lung cook bilaterally, favor inflammatory over neoplastic. These may represent areas of pneumonia, or mycobacterial or fungal disease. Right hilar mass/adenopathy measuring 28 mm in size, with other borderline in size left hilar and mediastinal nodes and right infrahilar probable enlarged nodes, favor inflammatory etiology. Would recommend follow-up chest CT as clinically indicated. Reviewed, Interpreted and Dictated by Ish Mata III, MD Transcribed by Selin Mckeno Authenticated and [facility]
--- NOTE | 2022-11-06 10:23 | HMH.EDGENADL ---
Discharge Plan Disposition Patient Disposition: Home, Self-Care Prescriptions Prescriptions: New azithromycin 250 mg tablet 250 mg PO DAILY 4 Days Qty: 4 0RF Rx Instructions: start on day 2 of therapy (day after ED visit) prednisone 20 mg tablet 60 mg PO DAILY 7 Days Qty: 21 0RF albuterol sulfate 90 mcg/actuation HFA aerosol inhaler 4 inh inhalation Q4H PRN (Reason: shortness of breath or wheezing) Qty: 8.5 0RF Rx Instructions: 4 puffs every 4 hours for 48 hours then as needed for shortness of breath or wheezing following amoxicillin-pot clavulanate 875-125 mg tablet 1 tab PO BID 10 Days Qty: 20 0RF No Action tamsulosin 0.4 MG capsule 0.4 mg PO HS finasteride 5 MG tablet 5 mg PO DAILY albuterol sulfate 200 PUFFS HFA aerosol inhaler 2 puffs IH Q4HP PRN (Reason: Shortness Of Breath) Qty: 1 0RF apixaban 5 MG tablet 5 mg PO BID rosuvastatin 20 mg tablet 10 mg PO HS fluticasone propion-salmeterol [Wixela Inhub] 250-50 mcg/dose Blister With Device 1 inh INHALATION BID metoprolol succinate [Toprol XL] 50 mg Tablet Extended Release 24 Hr 25 mg PO DAILY nifedipine 30 mg tablet extended release 30 mg PO DAILY magnesium Tablet 1 tab PO BID Referrals Follow up/Referrals: Provider,Mary, MD [Primary Care Provider] - See instructions Stephan Mabry MD [Physician] - See instructions (within 1 week for follow up ) Activity Restrictions/Add. Instructions Additional Instructions/Restrictions: Your CAT scan showed multifocal nodular opacities concerning for infectious versus inflammatory versus neoplastic. This could represent a bacterial infection fungal infection mycobacterial infection or cancer. Please make sure that you follow-up with our rooming house inspector or your rooming house inspector at the [facility] to make sure that this is radiographically and clinically improving and if not at this is further escalated to rule out serious pathology such as cancer. Turn with any worsening conditions. Clinical Impressions Clinical Impression: Chest pain, pleuritic, CAP (community acquired pneumonia) Discharge ED Provider: Laura Qureshi General Adult HPI General Chief complaint: PAIN Stated complaint: SOA Time Seen by Provider: 11/06/22 10:16 Mode of Arrival: EMS Source of Information: Patient Limitations: No Limitations Description of Symptoms (Recalled from ER Triage Doc. by RN): Patient reports having right sided lung pain. States he does have a mass on that side. History of Present Illness HPI narrative: 77-year-old male with a history of COPD was recently diagnosed a month ago at the [facility] with a possible mass versus infection in his right lower lobe. States he been having some intermittent discomfort but over the last 1-1/2 weeks he is having severe pain in the right lower lateral aspect of his rib cage. Also has been having some dyspnea and a DuoNeb in route and had significant improvement in those symptoms. Currently states his pain is very mild and does not want any pain medication. Denies any fevers he has had a chronic cough which has not worsened lately states he is chronically having some wheezing and that is at his baseline as well. Has had 10 pounds of unintentional weight loss he has no current plan of future evaluation and treatment of this questionable mass he was diagnosed a month ago and they made an appointment at the end of November at the [facility] but he wanted to come in to get checked out. Related Data Home Medications Medication Instructions Recorded Confirmed finasteride 5 mg tablet 5 mg PO DAILY prostate 06/10/20 11/06/22 tamsulosin 0.4 mg capsule 0.4 mg PO HS prostate 06/10/20 11/06/22 apixaban 5 mg tablet 5 mg PO BID Blood thinner/atrial 07/24/22 11/06/22 fib fluticasone 250 mcg-salmeterol 50 1 inh inhalation BID Breathing 07/24/22 11/06/22 mcg/dose blistr powdr for problems inhalation (Wixela Inhub) magnesium 1 tab PO BID Suppl
[2022-11-06 10:39] LABS: Coronavirus 19, PCR Not Detected (NotDetected); Influenza A, PCR Not Detected (NotDetected); Influenza B, PCR Not Detected (NotDetected)
--- NOTE | 2022-11-06 10:52 | PC.NURSE ---
Rounded on pt. No needs voiced at this time. Call light within reach.
--- NOTE | 2022-11-06 12:00 | PC.NURSE ---
Rounded on pt. No needs voiced. Visitor at BS. Call light within reach.
--- NOTE | 2022-11-06 13:42 | PC.NURSE ---
pt family asked us to retake bp, cuff was too big placed a smaller cuff , obtained a better bp, family also asked for nausea meds. Staff advised.
--- NOTE | 2022-11-06 13:46 | PC.NURSE ---
Dr. Qureshi at bs
== END 2022-11-06 14:14 | disposition home or self-care (01) ==
PROVIDERS: Emergency Provider Student in an Organized Health Care Education/Training Program
DX: R07.9 Chest pain, unspecified (principal); J18.9 Pneumonia, unspecified organism; J44.9 Chronic obstructive pulmonary disease, unspecified; I48.91 Unspecified atrial fibrillation; K21.9 Gastro-esophageal reflux disease without esophagitis; I10 Essential (primary) hypertension; Z87.891 Personal history of nicotine dependence
CPT/HCPCS: 71045; 71275; 80053; 85025; 87040; 87077; 87186; 87636; 93005; 96374; 99285; J2405; Q9967

== ENCOUNTER → 2022-11-19 15:37 | Outpatient (CLI) | payer MEDICARE, OTHER, SELFPAY ==
[2022-11-21 12:45] LABS: C-Reactive Protein 114.6 mg/L (0-4)
[2022-11-24 17:09] LABS: Aspergillus flavus Negative (Neg:<1:1); Aspergillus fumigatus Negative (Neg:<1:1); Aspergillus niger Negative (Neg:<1:1); Blastomyces Antibody Negative (Neg:<1:1); Histoplasma Antibody Quant Negative (Neg:<1:1)
== END ==
PROVIDERS: Internal Medicine Pulmonary Disease
DX: J18.9 Pneumonia, unspecified organism (principal)
CPT/HCPCS: 36415; 86140; 86606; 86612; 86698; 87040

== ENCOUNTER → 2022-11-20 12:13 | Outpatient (CLI) | payer MEDICARE, OTHER, SELFPAY | PROVIDERS: Visit Provider Internal Medicine Pulmonary Disease | DX: J18.9 Pneumonia, unspecified organism (principal); B96.89 Other specified bacterial agents as the cause of diseases classified elsewhere | CPT/HCPCS: 87070; 87077; 87116; 87186; 87205; 87206; 87220 ==

== ENCOUNTER → 2023-01-02 09:38 | Outpatient (CLI) | payer MEDICARE, OTHER, SELFPAY ==
[2023-01-02 10:40] VITALS: PULSE 84; PULSE 88
--- NOTE | 2023-01-02 11:03 | CT_ITS ---
FINAL REPORT TECHNIQUE: Axial images were obtained from the lung apex to the mid abdomen by computed tomography. Coronal reformatted images were obtained. This study was performed with techniques to keep radiation doses as low as reasonably achievable, (ALARA). Individualized dose reduction techniques using automated exposure control or adjustment of mA and/or kV according to the patient''s size were employed. CLINICAL HISTORY: F/U right hilar mass COMPARISON: 11/06/2022 CTA chest FINDINGS: There is no mediastinal mass. There has been interval improvement in right hilar adenopathy now measuring 23 mm, was 28 mm. Heart size is normal. There is no pericardial effusion. There is abnormal soft tissue at the lung apices which is stable and favored to represent scarring. There is severe emphysema. There is a stable lateral left upper lobe nodule measuring up to 6 mm best seen on image 26. There is a 13 mm nodule at the left major fissure which is also stable. There are% stent but improved multiple nodules and peribronchovascular thickening involving the right middle lobe and right lower lobe favored to be inflammatory. No new abnormality identified. There are chronic right rib fractures. There has been interval resolution of the small right pleural effusion. Limited images of the upper abdomen demonstrate multiple small nonobstructing renal stones. There is marked nonspecific gastric wall thickening which may be inflammatory or neoplastic. This was not as well seen on the prior exam. IMPRESSION: Improved right lung opacities and right hilar adenopathy, most likely inflammatory or infectious. Stable left lung nodules. Marked gastric wall thickening, may be inflammatory or neoplastic. Recommend correlation with upper endoscopy. Reviewed, Interpreted and Dictated by Ish Mata III, MD Transcribed by Luciana Mcdonough Authenticated and [facility]
== END ==
PROVIDERS: PCP Internal Medicine Pulmonary Disease; Visit Provider Internal Medicine Pulmonary Disease
DX: R06.02 Shortness of breath (principal); R91.1 Solitary pulmonary nodule; J44.9 Chronic obstructive pulmonary disease, unspecified
CPT/HCPCS: 71250; 94060; 94618; 94640; 94727; 94729

== ENCOUNTER 2023-05-01 11:52 | Observation (INO) | payer MEDICARE, OTHER, SELFPAY ==
[2023-05-01] VITALS (13 sets, daily range): BP systolic 154–188; BP diastolic 66–98; PULSE 45–99; RESP 18–26; TEMP 36.4–36.6; O2SAT 96–99; BMI 18.0; BMI 17.3
--- NOTE | 2023-05-01 12:00 | ECG_ITS ---
APPROVED REPORT Exam: Resting ECG HR:95 bpm ECG Measurements Heart Rate 95 AXES AR 124 P 81 QRSd 78 QRS 90 QT 363 T 79 QTc 415 Conclusion SINUS RHYTHM WITH FREQUENT VENTRICULAR PREMATURE COMPLEXES POSSIBLE RIGHT ATRIAL ENLARGEMENT [0.25mV P-WAVE] POSSIBLE LEFT ATRIAL ENLARGEMENT [-0.1mV P-WAVE IN V1/V2] ANTEROSEPTAL MYOCARDIAL INFARCTION , PROBABLY OLD [40+ ms Q WAVE IN V1-V4] ABNORMAL ECG UNCONFIRMED REPORT Electronically signed by : Uday Suh MD 05/02/2023 20:04:12
--- NOTE | 2023-05-01 12:28 | XR_ITS ---
FINAL REPORT CLINICAL HISTORY: dyspnea COMPARISON: 11/06/2022 FINDINGS: A portable view of the chest was obtained. Cardiac and mediastinal silhouettes are within normal limits. Severe emphysema is noted. The irregular nodular opacity in the left apex appears slightly increased from prior. Previously seen right basilar opacity is improved but not resolved. There is no pleural effusion or pneumothorax. There are multiple old rib fractures on the right. IMPRESSION: Improved but not resolved right basilar opacity. Interval increase irregular nodular density left apex. Neoplasm not excluded. Consider follow-up CT chest. Reviewed, Interpreted and Dictated by Lucina Prescott MD Transcribed by Luciana Mcdonough Authenticated and [facility]
--- NOTE | 2023-05-01 12:29 | HMH.EDCP ---
Discharge Plan Disposition Patient Disposition: Admitted Prescriptions Prescriptions: No Action fluticasone propion-salmeterol [Wixela Inhub] 250-50 mcg/dose blister with device 1 inh inhalation BID 90 Days Qty: 60 3RF Spiriva Respimat 2.5 mcg/actuation mist 2 inh inhalation DAILY 90 Days Qty: 4 3RF ipratropium-albuterol 0.5 mg-3 mg(2.5 mg base)/3 mL solution for nebulization 3 ml inhalation QID PRN (Reason: shortness of breath or wheezing) 90 Days Qty: 270 3RF albuterol sulfate 90 mcg/actuation HFA aerosol inhaler 2 puff inhalation .q4 PRN (Reason: shortness of breath or wheezing) 90 Days Qty: 8.5 3RF tamsulosin 0.4 MG capsule 0.4 mg PO HS finasteride 5 MG tablet 5 mg PO DAILY apixaban 5 MG tablet 5 mg PO BID rosuvastatin 20 mg tablet 10 mg PO HS nifedipine 30 mg tablet extended release 30 mg PO DAILY magnesium Tablet 1 tab PO BID Referrals Follow up/Referrals: Provider,Referral, MD [Primary Care Provider] - See instructions Clinical Impressions Clinical Impression: Acute exacerbation of chronic obstructive pulmonary disease Discharge ED Provider: Laura Qureshi [facility] General Chief Complaint: Shortness of Breath/Dyspnea Stated Complaint: sob Time Seen by Provider: 05/01/23 12:21 Mode of Arrival: EMS Source of Information: Patient and EMS Limitations: No Limitations Description of Symptoms (Recalled from ER Triage Doc. by RN): Patient reports worsening shortness of breath for 2 days and states I just can't catch my breathe Denies other symptoms at this time. Patient states he wears 2L NC at baseline. History of Present Illness HPI narrative: 77-year-old male with a history of COPD presenting today with worsening cough shortness of breath and wheezing. Also has some chest tightness. This is been ongoing for the last 2 days. Wears 2 L nasal cannula at home and has been using his breathing treatments at home without any significant improvement. Most recently several months ago he was at our emergency department with similar symptoms and significantly improved and has been good since that time not requiring hospitalization. Related Data Home Medications Medication Instructions Recorded Confirmed finasteride 5 mg tablet 5 mg PO DAILY prostate 06/10/20 01/02/23 tamsulosin 0.4 mg capsule 0.4 mg PO HS prostate 06/10/20 01/02/23 apixaban 5 mg tablet 5 mg PO BID Blood thinner/atrial 07/24/22 01/02/23 fib magnesium 1 tab PO BID Supplement 07/24/22 01/02/23 nifedipine 30 mg tablet,extended 30 mg PO DAILY High blood pressure 07/24/22 01/02/23 release rosuvastatin 20 mg tablet 10 mg PO HS Cholesterol 07/24/22 01/02/23 Previous Rx's Medication Instructions Recorded albuterol sulfate 90 mcg/actuation 2 puff inhalation .q4 PRN 12/05/22 aerosol inhaler shortness of breath or wheezing 90 days #8.5 grams fluticasone 250 mcg-salmeterol 50 1 inh inhalation BID 90 days #60 ea 12/05/22 mcg/dose blistr powdr for inhalation (Wixela Inhub) ipratropium 0.5 mg-albuterol 3 mg 3 ml inhalation QID PRN shortness 12/05/22 (2.5 mg base)/3 mL nebulization of breath or wheezing 90 days #270 soln mL tiotropium bromide 2.5 2 inh inhalation DAILY 90 days #4 12/05/22 mcg/actuation mist for inhalation grams (Spiriva Respimat) Allergies Allergy/AdvReac Type Severity Reaction Status Date / Time No Known Allergies Allergy Verified 01/02/23 13:34 [facility] Disclaimer: The information contained in this section may have been updated after the patient was seen, as this information can be updated by other users. Medical History Afib Alcohol abuse Appendicitis Atypical pneumonia Bacteremia COPD (chronic obstructive pulmonary disease) COPD mixed type Dyspnea on exertion Encounter for screening for malignant neoplasm of lung GERD (gastroesophageal reflux disease) History of prostate disorder Hypertension Multiple lung nodules on CT Pulmonary emphysema Smoking greater than 30 pack years Surgical History History of appendectomy Family History Other Family history of COPD (chronic obstructive pulmonary disease) Family history of hyperlipidemia Family history of hypertension Family history of myocardial infarction Social History Smoking Status: Current every day smoker alcohol intake: former substance use type: denies use current occupational status: retired Travel in the last 8 weeks: None ROS Obtained: Yes All systems reviewed & no additional complaints except as documented Physical Exam General General appearance: alert Respiratory Respiratory exam: Present other (Patient is very thin sitting forward pursed lip breathing mild distress prolonged expiratory phase poor air movement mild wheezing nonfocal) Cardiovascular Cardiovascular exam: Present regular rate; Absent normal rhythm Neurological Exam Neurological exam: Present alert and oriented X3 HEART Score HEART Score HEART Score assessment performed?: Yes History (anamnesis): Slightly suspicious ECG: Non-specific disturbance Age: >65 years Risk factors: 1-2 risk factors Troponin: </= normal limit HEART Score: 4 Critical Care Critical Care Time Critical Care Time: Yes Attestation: On 05/01/23, the high probability of a clinically significant, sudden or life threatening deterioration of the following system(s) required my full and direct attention, intervention and personal management. The time I documented below is in addition to time spent performing reported procedures but includes the following listed in this critical care notation. Total Time Total Critical Care Time: 35 Medical Decision Making Mitchell Inquiry Pt receiving controlled substance: No Vital Signs Vital Signs: 05/01/23 11:53 05/01/23 12:00 05/01/23 12:01 Temperature 97.6 F Temperature Source Oral Pulse Rate 45 L 95 H Pulse Rate [Right] 85 Respiratory Rate 26 H Blood Pressure 188/93 H 163/66 H Blood Pressure [Right Arm] 163/66 H Blood Pressure Mean [Right Arm] 98 Blood Pressure Source [Right Arm] Automatic Cuff 02 Sat by Pulse Oximetry 98 98 99 Oxygen Delivery Method Nasal Cannula Room Air Room Air Oxygen Flow Rate (LPM) 2 05/01/23 12:25 05/01/23 13:00 05/01/23 13:30 Temperature Temperature Source Pulse Rate 99 H 93 H 91 H Pulse Rate [Right] Respiratory Rate Blood Pressure 163/78 H 154/81 H 156/82 H Blood Pressure [Right Arm] Blood Pressure Mean [Right Arm] Blood Pressure Source [Right Arm] 02 Sat by Pulse Oximetry 97 97 96 Oxygen Delivery Method Room Air Room Air Nasal Cannula Oxygen Flow Rate (LPM) 05/01/23 14:00 Temperature Temperature Source Pulse Rate 88 Pulse Rate [Right] Respiratory Rate Blood Pressure 168/84 H Blood Pressure [Right Arm] Blood Pressure Mean [Right Arm] Blood Pressure Source [Right Arm] 02 Sat by Pulse Oximetry 98 Oxygen Delivery Method Nasal Cannula Oxygen Flow Rate (LPM) Lab Data Lab results reviewed: Yes I reviewed the patient's lab results. Labs: Lab Results 05/01/23 12:00: WBC 6.8, RBC 4.29 L, Hgb 12.4 L, Hct 39.6 L, MCV 92.2, MCH 28.8, MCHC 31.2 L, RDW 18.2 H, Plt Count 249, MPV 8.6, Neut % (Auto) 81.7 H, Lymph % (Auto) 13.9, Bulloch % (Auto) 3.3, Eos % (Auto) 0.9, Baso % (Auto) 0.2, Neut # (Auto) 5.5, Lymph # (Auto) 0.9, Bulloch # (Auto) 0.2, Eos # (Auto) 0.1, Baso # (Auto) 0.0, Sodium 134 L, Potassium 4.7, Chloride 99, Carbon Dioxide 33 H, Anion Gap 6.7, BUN 19, Creatinine 0.90, Estimated Creat Clear 49, Estimated GFR 82, Est GFR ( Amer) 99, Glucose 139 H, Calcium 9.2, Total Bilirubin 0.6, AST 39, ALT 29, Alkaline Phosphatase 74, Troponin I < 0.01, NT-Pro-B Natriuret Pep 396, Total Protein 7.2, Albumin 4.0, Globulin 3.2, Albumin/Globulin Ratio 1.3, SARS-CoV-2 (PCR) Not detected, Influenza A Untype (PCR) Not detected, Influenza Type B (PCR) Not detected 05/01/23 12:29: VBG pH 7.34, VBG pCO2 58.6 H, VBG pO2 37.6, VBG HCO3 30.8 H, VBG Total CO2 32.6 H, VBG O2 Saturation 68.0, VBG Base Excess 5.0 H 05/01/23 12:00 05/01/23 12:00 Response Orders (Tests/Meds): ED MEDICATIONS Generic Name Dose Route Start Last Admin Trade Name Freq PRN Reason Stop Dose Admin Sodium Chloride 10 ml 05/01/23 12:23 Sodium Chloride 0.9% 10ml Flush Syringe IV 05/31/23 12:22 NEEDED PRN Maintain IV Site Discontinued Medications Generic Name Dose Route Start Last Admin Trade Name Freq PRN Reason Stop Dose Admin Albuterol/Ipratropium 3 ml 05/01/23 12:27 05/01/23 12:33 Ipratropium/Albuterol 3 Ml Neb IH 05/01/23 12:28 3 ml ONCE ONE Administration Amoxicillin/Clavulanate Potassium 1 each 05/01/23 12:27 05/01/23 12:34 Amoxicillin/Clavulanate Potassium 875/125mg Tablet PO 05/01/23 12:28 1 each ONCE ONE Administration Dexamethasone Sodium Phosphate 10 mg 05/01/23 12:27 05/01/23 12:34 Dexamethasone 4mg/Ml 1ml Vial IV 05/01/23 12:28 10 mg ONCE ONE Administration Magnesium Sulfate 2 gm in 50 mls @ 50 mls/hr 05/01/23 12:27 05/01/23 12:33 Magnesium Sulfate 2gm/50ml Premix IV 05/01/23 13:26 50 mls/hr ONCE ONE Administration ORDERS Category Date Time Status CXR --portable [XR chest portable] Stat Exams 05/01/23 12:28 Taken BNP [Brain Natriuretic Peptide] Stat Lab 05/01/23 12:00 Completed CBC w/Auto Diff [Complete Blood Count Auto Diff] Stat Lab 05/01/23 12:00 Completed CMP [Comprehensive Metabolic Panel] Stat Lab 05/01/23 12:00 Completed Rapid PCR Covid and Flu A/B Stat Lab 05/01/23 12:00 Completed Trop I [Troponin I] Stat Lab 05/01/23 12:00 Completed Troponin I Q3H Lab 05/01/23 15:30 Ordered Troponin I Q3H Lab 05/01/23 18:30 Ordered Venous Blood Gas Stat RT 05/01/23 12:29 Completed ECG Data Tracing #1: Attestation: I reviewed this ECG and interpreted as documented below: ECG Narrative: Ventricular rate of 95 no sinus rhythm with PVCs nonspecific ST abnormalities in the inferior and anterior precordial leads but no significant ST depressions or elevations to suggest acute ischemia there is evidence of right atrial enlargement and left atrial enlargement and other than the PVCs no other significant arrhythmia MDM Narrative Medical Decision Narrative: 77-year-old presenting today with what appears to be a COPD exacerbation with increasing cough shortness of breath and wheezing and his clinical presentation. Differential also would include acute coronary syndrome heart failure pneumonia etc. Will give nebs steroids antibiotics magnesium breathing treatments and reassess. Chest x-ray performed which I personally interpreted which shows no acute cardiopulmonary emergency on reassessment at 2:15 PM patient is improved somewhat he has improved air movement but still is mildly tachypneic still no significant hypoxemia. COVID and flu are negative labs otherwise unremarkable with no concern for cardiopulmonary emergency aside from the COPD exacerbation. Does still have increased work of breathing will try to get him up and walk which he normally is able to walk for long periods at home he was only able to walk a few feet in the emergency part without getting significantly dyspneic therefore he would like to stay for further management of his COPD until he is more stable to go home. [facility] he would not [facility] and like to stay at [facility] and we are try to work that out at the moment the patient will be admitted for further evaluation and management.
--- NOTE | 2023-05-01 12:31 | PC.NURSE ---
RESPIRATORY NOTIFIED OF [facility]
--- NOTE | 2023-05-01 12:32 | PC.NURSE ---
PT REPOSITIONED IN BED AND URINAL PROVIDED. CALL LIGHT WITHIN REACH. AT BEDSIDE. NO FURTHER NEEDS AT THIS TIME
--- NOTE | 2023-05-01 12:32 | PC.NURSE ---
pt was given a urinal
[2023-05-01 12:33] LABS: Coronavirus 19, PCR Not Detected (NotDetected); Influenza A, PCR Not Detected (NotDetected); Influenza B, PCR Not Detected (NotDetected)
[2023-05-01] MEDS: IPRATROPIUM/ALBUTEROL 3 ML NEB IH ×4 (12:33→21:45)
[2023-05-01] MEDS: MAGNESIUM SULFATE IN WATER 2 GM/50 ML PIGGYBACK IV (12:33)
[2023-05-01] MEDS: AMOXICILLIN/CLAVULANATE POTASSIUM 875/125MG TABLET 1 EACH PO (12:34)
[2023-05-01] MEDS: DEXAMETHASONE 4MG/ML 1ML VIAL 10 MG IV (12:34)
[2023-05-01 12:37] LABS: Basophils % 0.2 % (0.1-2.0); Eosinophils # 0.1 K/mm3 (0.0-0.4); Eosinophils % 0.9 % (0.1-12.0); Hematocrit 39.6 % (42.0-52.0); Hemoglobin 12.4 g/dL (14.1-18.0); Lymphocytes # 0.9 K/mm3 (0.7-4.5); Lymphocytes % 13.9 % (10-50); Mean Corpuscular HGB Conc 31.2 g/dL (31.8-35.4); Mean Corpuscular Hemoglobin 28.8 pg (27.0-31.2); Mean Corpuscular Volume 92.2 fl (80-94); Mean Platelet Volume 8.6 fl (7.4-10.4); Monocytes # 0.2 K/mm3 (0.1-1.0); Monocytes % 3.3 % (1.7-9.3); Neutrophils # 5.5 K/mm3 (1.8-7.8); Neutrophils % 81.7 % (37.0-80.0); Platelet Count 249 K/mm3 (142-424); Red Blood Count 4.29 M/mm3 (4.60-6.20); Red Cell Distribution Width 18.2 % (11.5-17.5); White Blood Count 6.8 K/mm3 (4.8-10.8)
[2023-05-01 12:37] LABS: VBG HCO3 30.8 mmol/L (23-30); VBG PCO2 58.6 mmol/L (35-51); VBG PH 7.34 mmol/L (7.31-7.41); VBG PO2 37.6 mmol/L (28-40); VBG Total CO2 32.6 mmol/L (23-27)
[2023-05-01 12:39] LABS: Chloride 99 mmol/L (98-107); Potassium 4.7 mmoL/L (3.5-5.1); Sodium 134 mmol/L (136-145)
[2023-05-01 12:41] LABS: Alanine Aminotransferase 29 U/L (12-78); Aspartate Amino Transferase 39 U/L (17-59); Blood Urea Nitrogen 19 mg/dl (9-20); Creatinine Clearance Estimated 49 mL/min (50-200); Estimated Glomerular Filt Rate 82 ml/min (>60); GFR (African American) 99 ML/MIN (>60)
[2023-05-01 12:42] LABS: Albumin/Globulin Ratio 1.3 (1.1-1.8); Alkaline Phosphatase 74 U/L (38-126); Anion Gap 6.7 mEq/L (5-15); Bilirubin,Total 0.6 mg/dl (0.2-1.3); Calcium 9.2 mg/dl (8.4-10.2); Carbon Dioxide 33 mmol/L (22.0-30.0); Globulin 3.2 g/dL (1.3-3.2); Glucose 139 mg/dl (74-100); Total Protein,Serum 7.2 g/dl (6.3-8.2)
[2023-05-01 12:52] LABS: NT Pro Brain Natriuretic Pep. 396 pg/mL (0-450)
[2023-05-01 12:55] LABS: Troponin I < 0.01 ng/ml (0.00-0.034)
--- NOTE | 2023-05-01 14:04 | PC.NURSE ---
DR HENDRIX AT BEDSIDE TO REEVALUATE PT
--- NOTE | 2023-05-01 14:16 | PC.NURSE ---
called [facility] to notify them [facility] but refuses to [facility] to there facility so waiting for a refusal fax from the [facility]. Once received and signed [facility] asked for it to be faxed back to [phone] (attn:[email or web address])
--- NOTE | 2023-05-01 14:18 | PC.NURSE ---
is calling hospitalist for admission
--- NOTE | 2023-05-01 14:20 | PC.NURSE ---
House notified of bed request.
--- NOTE | 2023-05-01 14:34 | PC.NURSE ---
Report called to JOE Ortiz
--- NOTE | 2023-05-01 14:49 | PC.NURSE ---
arrived by w/c from ED
[2023-05-01 16:10] LABS: Troponin I < 0.01 ng/ml (0.00-0.034)
[2023-05-01] MEDS: HEPARIN SODIUM 5,000 UNIT/ML VIAL 5000 UNIT SQ (16:44)
--- NOTE | 2023-05-01 17:52 | EXP.HP ---
History of Present Illness *Admission Date: 05/01/23 *Reason for visit:: SOB *History of present illness: Patient is a 77-year-old male with past medical history of history of bradycardia, active tobacco use for past 30 years, chronic hypoxic respiratory failure on 3 L nasal cannula at home who presents to the hospital due to shortness of breath. According to the patient he feels his chest is tight, he also has cough, dry. He denies chest pain nausea vomiting diarrhea constipation dysuria fevers chills. [facility] Disclaimer: The information contained in this section may have been updated after the patient was seen, as this information can be updated by other users. Medical History Afib Alcohol abuse Appendicitis Atypical pneumonia Bacteremia COPD (chronic obstructive pulmonary disease) COPD mixed type Dyspnea on exertion Encounter for screening for malignant neoplasm of lung GERD (gastroesophageal reflux disease) History of prostate disorder Hypertension Multiple lung nodules on CT Pulmonary emphysema Smoking greater than 30 pack years Surgical History History of appendectomy Family History Other Family history of COPD (chronic obstructive pulmonary disease) Family history of hyperlipidemia Family history of hypertension Family history of myocardial infarction Social History (Updated 05/01/23 @ 15:14 by Shanna Lindsey, RN) Smoking Status: Current every day smoker alcohol intake: former substance use type: denies use current occupational status: retired Travel in the last 8 weeks: None Review of Systems Review of Systems Review of systems (narrative): as per [facility] Meds Home Medications and Allergies Home Medications Medication Instructions Recorded Confirmed Type finasteride 5 mg tablet 5 mg PO HS prostate 06/10/20 05/01/23 History tamsulosin 0.4 mg capsule 0.4 mg PO HS prostate 06/10/20 05/01/23 History apixaban 5 mg tablet 5 mg PO BID Blood thinner/atrial 07/24/22 05/01/23 History fib magnesium 1 tab PO BID Supplement 07/24/22 01/02/23 History nifedipine 30 mg tablet,extended 30 mg PO DAILY High blood pressure 07/24/22 05/01/23 History release rosuvastatin 20 mg tablet 10 mg PO HS Cholesterol 07/24/22 05/01/23 History albuterol sulfate 90 mcg/actuation 2 puff inhalation .q4 PRN 12/05/22 05/01/23 Rx aerosol inhaler shortness of breath or wheezing 90 days #8.5 grams ipratropium 0.5 mg-albuterol 3 mg 3 ml inhalation QID PRN shortness 12/05/22 05/01/23 Rx (2.5 mg base)/3 mL nebulization of breath or wheezing 90 days #270 soln mL tiotropium bromide 2.5 2 inh inhalation DAILY 90 days #4 12/05/22 05/01/23 Rx mcg/actuation mist for inhalation grams (Spiriva Respimat) prednisone 10 mg tablet 10 mg PO DAILY 05/01/23 05/01/23 History New Prescriptions to Start Prescriptions: Allergies Allergy/AdvReac Type Severity Reaction Status Date / Time No Known Allergies Allergy Verified 01/02/23 13:34 Exam Data for Last 24 hours Vital signs and Labs for Last 24 Hours: Temp Pulse Resp BP Pulse Ox O2 Del Method O2 Flow Rate 97.6 F 88 20 168/98 H 97 Nasal Cannula 2 05/01/23 15:04 05/01/23 15:04 05/01/23 15:04 05/01/23 15:04 05/01/23 15:04 05/01/23 17:05 05/01/23 17:05 Laboratory Results - last 24 hr 05/01/23 12:00: WBC 6.8, RBC 4.29 L, Hgb 12.4 L, Hct 39.6 L, MCV 92.2, MCH 28.8, MCHC 31.2 L, RDW 18.2 H, Plt Count 249, MPV 8.6, Neut % (Auto) 81.7 H, Lymph % (Auto) 13.9, Benson % (Auto) 3.3, Eos % (Auto) 0.9, Baso % (Auto) 0.2, Neut # (Auto) 5.5, Lymph # (Auto) 0.9, Benson # (Auto) 0.2, Eos # (Auto) 0.1, Baso # (Auto) 0.0, Sodium 134 L, Potassium 4.7, Chloride 99, Carbon Dioxide 33 H, Anion Gap 6.7, BUN 19, Creatinine 0.90, Estimated Creat Clear 49, Estimated GFR 82, Est GFR ( Amer) 99, Glucose 139 H, Calcium 9.2, Total Bilirubin 0.6, AST 39, ALT 29, Alkaline Phosphatase 74, Troponin I < 0.01, NT-Pro-B Natriuret Pep 396, Total Protein 7.2, Albumin 4.0, Globulin 3.2, Albumin/Globulin Ratio 1.3, SARS-CoV-2 (PCR) Not detected, Influenza A Untype (PCR) Not detected, Influenza Type B (PCR) Not detected 05/01/23 12:29: VBG pH 7.34, VBG pCO2 58.6 H, VBG pO2 37.6, VBG HCO3 30.8 H, VBG Total CO2 32.6 H, VBG O2 Saturation 68.0, VBG Base Excess 5.0 H 05/01/23 15:35: Troponin I < 0.01 I & O for Last 24 hours: Intake & Output 04/28/23 04/29/23 04/30/23 05/01/23 23:59 23:59 23:59 23:59 Output Total 0 / 0 Balance 0 / 0 Weight 53.127 kg Constitutional Constitutional: no acute distress *Routine HEENT Exam Head: Present normocephalic Eye: Present EOMI and PERRL ENT: Present mucous membranes moist *Routine Neck Exam Neck: Present supple; Absent lymphadenopathy *Routine Respiratory Exam Respiratory: Present prolonged expiratory phase, wheezes and diminished air movement *Routine Cardiovascular Exam Cardiovascular: Present RRR *Routine Abdominal Exam Abdominal: Present soft and normoactive bowel sounds; Absent tenderness *Routine Rectal Exam Rectal:: deferred *Routine Genitalia Exam Genitalia:: deferred *Routine Extremities Exam Extremities: Absent cyanosis, clubbing or edema *Routine Skin Exam Skin: Present warm; Absent rash *Routine Neurological Exam Neurological: Present alert and oriented X3 Assessment and Plan *Assessment and plan (1) Acute exacerbation of chronic obstructive pulmonary disease: Status: Acute Category: Medical Code(s): J44.1 - Chronic obstructive pulmonary disease with (acute) exacerbation (2) CAP (community acquired pneumonia): Status: Acute Category: Medical Code(s): J18.9 - Pneumonia, unspecified organism (3) Afib: Status: Acute Category: Medical Code(s): I48.91 - Unspecified atrial fibrillation Plan Patient is a 77-year-old male with past medical history of history of bradycardia, active tobacco use for past 30 years, chronic hypoxic respiratory failure on 3 L nasal cannula at home who presents to the hospital due to shortness of breath. According to the patient he feels his chest is tight, he also has cough, dry. He denies chest pain nausea vomiting diarrhea constipation dysuria fevers chills. Assessment and plan COPD exacerbation Chronic hypoxic hypercapnic respiratory failure satting less than 90% on room air Start IV Solu-Medrol DuoNebs every 4 hours IV levofloxacin On 2 L nasal cannula at this time, utilize 2 to 3 L nasal cannula at home Rapid flu antigen, COVID-19 checked in ED-negative Chest x-ray does show right basilar opacity concerning for pneumonia-continue IV levofloxacin Atrial fibrillation Monitor on cardiac telemetry Resume home Eliquis Currently rate controlled Active tobacco use - counselled, Nicotine patch ordered DVT PPx - on eliquis
[2023-05-01] MEDS: METHYLPREDNISOLONE SOD SUCC 40MG VIAL 40 MG IV ×2 (18:04→23:29)
[2023-05-01] MEDS: LEVOFLOXACIN/D5W 750 MG/150 ML 750 MG/150 ML PIGGYBACK 100 MG IV (18:05)
[2023-05-01 19:40] LABS: Troponin I < 0.01 ng/ml (0.00-0.034)
[2023-05-01] MEDS: TAMSULOSIN 0.4MG CAPSULE 0.400000000000000022 MG PO (20:39)
[2023-05-01] MEDS: APIXABAN 5MG TABLET 5 MG PO (20:39)
[2023-05-01] MEDS: ATORVASTATIN 40MG TABLET 80 MG PO (20:40)
[2023-05-01] MEDS: MELATONIN 5MG TABLET 10 MG PO (23:29)
[2023-05-02] VITALS (16 sets, daily range): BP systolic 133–161; BP diastolic 73–86; PULSE 79–100; RESP 18–21; TEMP 36.4–36.8; O2SAT 92–100; BMI 17.3
[2023-05-02] MEDS: IPRATROPIUM/ALBUTEROL 3 ML NEB IH ×6 (01:16→21:57)
[2023-05-02] MEDS: METHYLPREDNISOLONE SOD SUCC 40MG VIAL 40 MG IV (05:31)
[2023-05-02 06:42] LABS: Chloride 101 mmol/L (98-107)
[2023-05-02 06:43] LABS: Potassium 4.6 mmoL/L (3.5-5.1); Sodium 133 mmol/L (136-145)
[2023-05-02 06:45] LABS: Alanine Aminotransferase 26 U/L (12-78); Alkaline Phosphatase 71 U/L (38-126); Anion Gap 5.6 mEq/L (5-15); Aspartate Amino Transferase 29 U/L (17-59); Bilirubin,Total 0.4 mg/dl (0.2-1.3); Blood Urea Nitrogen 29 mg/dl (9-20); Carbon Dioxide 31 mmol/L (22.0-30.0); Creatinine Clearance Estimated 43 mL/min (50-200); Estimated Glomerular Filt Rate 65 ml/min (>60); GFR (African American) 79 ML/MIN (>60)
[2023-05-02 06:46] LABS: Albumin Level 3.6 g/dl (3.5-5.0); Albumin/Globulin Ratio 1.2 (1.1-1.8); Glucose 139 mg/dl (74-100); Total Protein,Serum 6.6 g/dl (6.3-8.2)
[2023-05-02 07:04] LABS: Basophils % 0.1 % (0.1-2.0); Eosinophils % 0.2 % (0.1-12.0); Hematocrit 36.4 % (42.0-52.0); Hemoglobin 11.5 g/dL (14.1-18.0); Lymphocytes # 0.4 K/mm3 (0.7-4.5); Mean Corpuscular HGB Conc 31.7 g/dL (31.8-35.4); Mean Corpuscular Hemoglobin 29.4 pg (27.0-31.2); Mean Corpuscular Volume 92.8 fl (80-94); Mean Platelet Volume 7.3 fl (7.4-10.4); Monocytes # 0.1 K/mm3 (0.1-1.0); Monocytes % 2.1 % (1.7-9.3); Neutrophils # 2.6 K/mm3 (1.8-7.8); Neutrophils % 84.7 % (37.0-80.0); Platelet Count 243 K/mm3 (142-424); Red Blood Count 3.93 M/mm3 (4.60-6.20); Red Cell Distribution Width 17.9 % (11.5-17.5); White Blood Count 3.1 K/mm3 (4.8-10.8)
[2023-05-02] MEDS: NIFEdipine XL 30MG TABLET 30 MG PO (08:17)
[2023-05-02] MEDS: APIXABAN 5MG TABLET 5 MG PO ×2 (08:17→21:58)
--- NOTE | 2023-05-02 09:45 | HMH.PHAINT1 ---
Pharmacy Intervention Comments: Reviewed home medications using external fill history and spoke with patient at bedside. Of note, patient said he was recently started on Breztri inhaler which he used once and then stopped, claiming it gave him diarrhea.
--- NOTE | 2023-05-02 09:48 | P.CONS_ITS ---
History of Present Illness History of present illness: Ms. Garcia is a 77-year-old male current smoker greater than 30 PPD history of COPD, chronic hypoxic respiratory failure multiple lung nodules presented to the ER with worsening respiratory distress found to be having increasing oxygen requirements and pulmonary was called for further evaluation and management. Patient admits worsening respiratory's along with worsening cough productive phlegm and wheezing for the last 3 to 4 days progressively getting worse not improved with nebulization therapies. Denies any known sick contacts. [facility] Disclaimer: The information contained in this section may have been updated after the patient was seen, as this information can be updated by other users. Medical History Acute and chronic respiratory failure with hypoxia Afib Alcohol abuse Appendicitis Atypical pneumonia Bacteremia COPD (chronic obstructive pulmonary disease) COPD mixed type Dyspnea on exertion Encounter for screening for malignant neoplasm of lung GERD (gastroesophageal reflux disease) History of prostate disorder Hypertension Multiple lung nodules on CT Pulmonary emphysema Smoking greater than 30 pack years Surgical History History of appendectomy Family History Other Family history of COPD (chronic obstructive pulmonary disease) Family history of hyperlipidemia Family history of hypertension Family history of myocardial infarction Social History (Updated 05/01/23 @ 15:14 by Shanna Lindsey, RN) Smoking Status: Current every day smoker alcohol intake: former substance use type: denies use current occupational status: retired Travel in the last 8 weeks: None Pulmonology Exam Inpatient Vital signs and Labs for Last 24 Hours: Temp Pulse Resp BP Pulse Ox O2 Del Method O2 Flow Rate 98.3 F 88 21 141/78 H 94 L Nasal Cannula 2 05/02/23 08:00 05/02/23 08:00 05/02/23 08:00 05/02/23 08:00 05/02/23 08:00 05/02/23 09:00 05/02/23 09:00 Laboratory Results - last 24 hr 05/01/23 12:00: WBC 6.8, RBC 4.29 L, Hgb 12.4 L, Hct 39.6 L, MCV 92.2, MCH 28.8, MCHC 31.2 L, RDW 18.2 H, Plt Count 249, MPV 8.6, Neut % (Auto) 81.7 H, Lymph % (Auto) 13.9, [place] % (Auto) 3.3, Eos % (Auto) 0.9, Baso % (Auto) 0.2, Neut # (Auto) 5.5, Lymph # (Auto) 0.9, [place] # (Auto) 0.2, Eos # (Auto) 0.1, Baso # (Auto) 0.0, Sodium 134 L, Potassium 4.7, Chloride 99, Carbon Dioxide 33 H, Anion Gap 6.7, BUN 19, Creatinine 0.90, Estimated Creat Clear 49, Estimated GFR 82, Est GFR ( Amer) 99, Glucose 139 H, Calcium 9.2, Total Bilirubin 0.6, AST 39, ALT 29, Alkaline Phosphatase 74, Troponin I < 0.01, NT-Pro-B Natriuret Pep 396, Total Protein 7.2, Albumin 4.0, Globulin 3.2, Albumin/Globulin Ratio 1.3, SARS-CoV-2 (PCR) Not detected, Influenza A Untype (PCR) Not detected, Influenza Type B (PCR) Not detected 05/01/23 12:29: VBG pH 7.34, VBG pCO2 58.6 H, VBG pO2 37.6, VBG HCO3 30.8 H, VBG Total CO2 32.6 H, VBG O2 Saturation 68.0, VBG Base Excess 5.0 H 05/01/23 15:35: Troponin I < 0.01 05/01/23 18:35: Troponin I < 0.01 05/02/23 06:10: WBC 3.1 L D, RBC 3.93 L, Hgb 11.5 L, Hct 36.4 L, MCV 92.8, MCH 29.4, MCHC 31.7 L, RDW 17.9 H, Plt Count 243, MPV 7.3 L, Neut % (Auto) 84.7 H, Lymph % (Auto) 13.0, [place] % (Auto) 2.1, Eos % (Auto) 0.2, Baso % (Auto) 0.1, Neut # (Auto) 2.6, Lymph # (Auto) 0.4 L, [place] # (Auto) 0.1, Eos # (Auto) 0.0, Baso # (Auto) 0.0, Sodium 133 L, Potassium 4.6, Chloride 101, Carbon Dioxide 31 H, Anion Gap 5.6, BUN 29 H D, Creatinine 1.10 D, Estimated Creat Clear 43, Estimated GFR 65, Est GFR ( Amer) 79 D, Glucose 139 H, Calcium 9.0, Total Bilirubin 0.4, AST 29 D, ALT 26, Alkaline Phosphatase 71, Total Protein 6.6, Albumin 3.6, Globulin 3.0, Albumin/Globulin Ratio 1.2 I & O for Labs for Last 24 Hours: Intake & Output 04/29/23 04/30/23 05/01/23 05/02/23 23:59 23:59 23:59 23:59 Intake Total 360 / 360 470 / 470 Output Total 100 / 100 150 / 150 Balance 260 / 260 320 / 320 Weight 117 lb 2 oz 117 lb 2 oz Meds Home Medications and Allergies Home Medications Medication Instructions Recorded Confirmed Type finasteride 5 mg tablet 5 mg PO HS prostate 06/10/20 05/01/23 History tamsulosin 0.4 mg capsule 0.4 mg PO HS prostate 06/10/20 05/01/23 History apixaban 5 mg tablet 5 mg PO BID Blood thinner/atrial 07/24/22 05/01/23 History fib magnesium 1 tab PO BID Supplement 07/24/22 01/02/23 History nifedipine 30 mg tablet,extended 30 mg PO DAILY High blood pressure 07/24/22 05/01/23 History release rosuvastatin 20 mg tablet 10 mg PO HS Cholesterol 07/24/22 05/01/23 History albuterol sulfate 90 mcg/actuation 2 puff inhalation .q4 PRN 12/05/22 05/01/23 Rx aerosol inhaler shortness of breath or wheezing 90 days #8.5 grams ipratropium 0.5 mg-albuterol 3 mg 3 ml inhalation QID PRN shortness 12/05/22 05/01/23 Rx (2.5 mg base)/3 mL nebulization of breath or wheezing 90 days #270 soln mL tiotropium bromide 2.5 2 inh inhalation DAILY 90 days #4 12/05/22 05/01/23 Rx mcg/actuation mist for inhalation grams (Spiriva Respimat) prednisone 10 mg tablet 10 mg PO DAILY 05/01/23 05/01/23 History multivitamin with iron 1 tab PO DAILY 05/02/23 05/02/23 History New Prescriptions to Start Prescriptions: Allergies Allergy/AdvReac Type Severity Reaction Status Date / Time No Known Allergies Allergy Verified 01/02/23 13:34 Results Laboratory Findings 05/02/23 06:10 05/02/23 06:10 Abnormal lab findings: Abnormal Labs 05/01/23 05/01/23 05/02/23 12:00 12:29 06:10 WBC 3.1 L D RBC 4.29 L 3.93 L Hgb 12.4 L 11.5 L Hct 39.6 L 36.4 L MCHC 31.2 L 31.7 L RDW 18.2 H 17.9 H MPV 7.3 L Neut % (Auto) 81.7 H 84.7 H Lymph # (Auto) 0.4 L VBG pCO2 58.6 H VBG HCO3 30.8 H VBG Total CO2 32.6 H VBG Base Excess 5.0 H Sodium 134 L 133 L Carbon Dioxide 33 H 31 H BUN 29 H D Glucose 139 H 139 H Assessment and Plan *Assessment and plan (1) Acute exacerbation of chronic obstructive pulmonary disease: Status: Acute Category: Medical Code(s): J44.1 - Chronic obstructive pulmonary disease with (acute) exacerbation (2) Acute and chronic respiratory failure with hypoxia: Status: Acute Category: Medical Code(s): J96.21 - Acute and chronic respiratory failure with hypoxia (3) Pneumonia: Status: Acute Qualifiers: Laterality: bilateral Lung location: unspecified part of lung Pneumonia type: due to unspecified organism Qualified Code(s): J18.9 - Pneumonia, unspecified organism Category: Medical Code(s): J18.9 - Pneumonia, unspecified organism Plan Ms. Garcia is a 77-year-old male current smoker greater than 30 PPD history of COPD, chronic hypoxic respiratory failure multiple lung nodules presented to the ER with worsening respiratory distress found to be having increasing oxygen requirements and pulmonary was called for further evaluation and management. Patient admits worsening respiratory's along with worsening cough productive phlegm and wheezing for the last 3 to 4 days progressively getting worse not improved with nebulization therapies. Patient at baseline on Wixela and Spiriva inhaler along with 2 L continuous oxygen supplementation mostly with exertion and at night. Chest x-ray on this admission no acute changes. Noted significant emphysematous changes as previous. Slight concern for interval irregular density in the left apex however this has been stable on his most recent CT from January 2023. Will monitor clinically. Will follow with 6-month CT chest as previously scheduled. Afebrile. Leukopenia upon admission. Patient on admission was initiated on levofloxacin along with DuoNebs every 4 hours scheduled. Prior culture Serratia and Acetobacter both sensitive to levofloxacin. On examination moderate respiratory distress. No significant wheezing a ppreciated on auscultation. Plan: Continue oxygen supplementation to maintain O2 saturation of 90% and above Continue levofloxacin 750 mg daily to complete a total of 5-day course pending sputum culture results. Continue DuoNebs every 4 hours scheduled along with Pulmicort every 12 scheduled. Wean steroids to prednisone 40 mg daily x 5 days Continue to monitor pending clinical improvement will tentatively plan for discharge for tomorrow
[2023-05-02] MEDS: TIOTROPIUM 18MCG/PUFF INHALER 1 CAP IH (10:05)
[2023-05-02] MEDS: predniSONE 20MG TAB 40 MG PO (13:00)
--- NOTE | 2023-05-02 15:35 | EXP.PN ---
Subjective *Date: 05/02/23 *Time: 15:35 Interval history: patient was seen and evaluated at the bedside. No reported acute events overnight, denies chest pain, shortness of breath, nausea, vomiting, abdominal pain. Exam Data for Last 24 hours Vital signs and Labs for Last 24 Hours: Temp Pulse Resp BP Pulse Ox O2 Del Method O2 Flow Rate 97.8 F 90 18 157/84 H 92 L Nasal Cannula 2 05/02/23 11:44 05/02/23 14:15 05/02/23 11:44 05/02/23 11:44 05/02/23 14:15 05/02/23 14:43 05/02/23 14:43 Laboratory Results - last 24 hr 05/01/23 15:35: Troponin I < 0.01 05/01/23 18:35: Troponin I < 0.01 05/02/23 06:10: WBC 3.1 L D, RBC 3.93 L, Hgb 11.5 L, Hct 36.4 L, MCV 92.8, MCH 29.4, MCHC 31.7 L, RDW 17.9 H, Plt Count 243, MPV 7.3 L, Neut % (Auto) 84.7 H, Lymph % (Auto) 13.0, [place] % (Auto) 2.1, Eos % (Auto) 0.2, Baso % (Auto) 0.1, Neut # (Auto) 2.6, Lymph # (Auto) 0.4 L, [place] # (Auto) 0.1, Eos # (Auto) 0.0, Baso # (Auto) 0.0, Sodium 133 L, Potassium 4.6, Chloride 101, Carbon Dioxide 31 H, Anion Gap 5.6, BUN 29 H D, Creatinine 1.10 D, Estimated Creat Clear 43, Estimated GFR 65, Est GFR ( Amer) 79 D, Glucose 139 H, Calcium 9.0, Total Bilirubin 0.4, AST 29 D, ALT 26, Alkaline Phosphatase 71, Total Protein 6.6, Albumin 3.6, Globulin 3.0, Albumin/Globulin Ratio 1.2 I & O for Last 24 hours: Intake & Output 04/29/23 04/30/23 05/01/23 05/02/23 23:59 23:59 23:59 23:59 Intake Total 360 / 360 710 / 710 Output Total 100 / 100 550 / 550 Balance 260 / 260 160 / 160 Weight 53.127 kg 53.127 kg Constitutional Constitutional: no acute distress *Routine HEENT Exam Head: Present normocephalic Eye: Present EOMI and PERRL ENT: Present mucous membranes moist *Routine Neck Exam Neck: Present supple; Absent lymphadenopathy *Routine Respiratory Exam Respiratory: Present decreased breath sounds and wheezes *Routine Cardiovascular Exam Cardiovascular: Present RRR *Routine Abdominal Exam Abdominal: Present soft and normoactive bowel sounds; Absent tenderness *Routine Extremities Exam Extremities: Absent cyanosis, clubbing or edema *Routine Skin Exam Skin: Present warm; Absent rash *Routine Neurological Exam Neurological: Present alert and oriented X3 Assessment and Plan *Assessment and plan (1) Acute exacerbation of chronic obstructive pulmonary disease: Status: Acute Category: Medical Code(s): J44.1 - Chronic obstructive pulmonary disease with (acute) exacerbation (2) CAP (community acquired pneumonia): Status: Acute Category: Medical Code(s): J18.9 - Pneumonia, unspecified organism (3) Afib: Status: Acute Category: Medical Code(s): I48.91 - Unspecified atrial fibrillation Plan Patient is a 77-year-old male with past medical history of history of bradycardia, active tobacco use for past 30 years, chronic hypoxic respiratory failure on 3 L nasal cannula at home who presents to the hospital due to shortness of breath. According to the patient he feels his chest is tight, he also has cough, dry. He denies chest pain nausea vomiting diarrhea constipation dysuria fevers chills. Assessment and plan COPD exacerbation Chronic hypoxic hypercapnic respiratory failure satting less than 90% on room air Start IV Solu-Medrol DuoNebs every 4 hours IV levofloxacin On 2 L nasal cannula at this time, utilize 2 to 3 L nasal cannula at home Rapid flu antigen, COVID-19 checked in ED-negative Chest x-ray does show right basilar opacity concerning for pneumonia-continue IV levofloxacin Atrial fibrillation Monitor on cardiac telemetry Resume home Eliquis Currently rate controlled Active tobacco use - counselled, Nicotine patch ordered contniue same management, likely DC tomorrow DVT PPx - on eliquis
--- NOTE | 2023-05-02 17:43 | PC.NURSE ---
A&OX4. TOLERATING 2LNC WELL. WEANED TO 1LNC BUT PT STATES HE FEELS SHORT OF BREATH, AND REQUESTED TO BE TURNED BACK UP TO 2LNC. HAS BEEN USING URINAL ON THE SIDE OF THE BED TODAY. GETS VERY WINDED WITH ANY ACTIVITY. SPUTUM CUP AT BEDSIDE, PT WORKING ON SAMPLE. DOES HAVE A PRODUCTIVE COUGH. PT HAS HAD NO C/O THIS SHIFT, FAMILY AT BEDSIDE MOST OF DAY. VSS.
[2023-05-02] MEDS: BUDESONIDE 0.5MG/2ML NEB 0.5 MG IH (18:19)
[2023-05-02] MEDS: ATORVASTATIN 40MG TABLET 80 MG PO (21:58)
[2023-05-02] MEDS: FINASTERIDE 5MG TABLET 5 MG PO (21:58)
[2023-05-02] MEDS: TAMSULOSIN 0.4MG CAPSULE 0.400000000000000022 MG PO (21:58)
[2023-05-02] MEDS: MELATONIN 5MG TABLET 10 MG PO (21:58)
[2023-05-03] VITALS: BP 146/89; PULSE 84; RESP 20; TEMP 36.4; O2SAT 94
[2023-05-03] MEDS: IPRATROPIUM/ALBUTEROL 3 ML NEB IH ×3 (02:10→09:56)
[2023-05-03 02:12] VITALS: PULSE 86; PULSE 89
[2023-05-03 04:00] VITALS: BP 129/75; PULSE 76; RESP 20; TEMP 36.4; O2SAT 99; BMI 17.4
[2023-05-03 06:21] VITALS: PULSE 88; O2SAT 98
[2023-05-03] MEDS: BUDESONIDE 0.5MG/2ML NEB 0.5 MG IH (06:21)
[2023-05-03 06:55] LABS: Alanine Aminotransferase 18 U/L (12-78); Albumin Level 3.4 g/dl (3.5-5.0); Albumin/Globulin Ratio 1.2 (1.1-1.8); Alkaline Phosphatase 61 U/L (38-126); Aspartate Amino Transferase 24 U/L (17-59); Bilirubin,Total 0.4 mg/dl (0.2-1.3); Blood Urea Nitrogen 29 mg/dl (9-20); Carbon Dioxide 29 mmol/L (22.0-30.0); Chloride 102 mmol/L (98-107); Creatinine Clearance Estimated 47 mL/min (50-200); Estimated Glomerular Filt Rate 82 ml/min (>60); GFR (African American) 99 ML/MIN (>60); Globulin 2.8 g/dL (1.3-3.2); Glucose 109 mg/dl (74-100); Sodium 136 mmol/L (136-145); Total Protein,Serum 6.2 g/dl (6.3-8.2)
[2023-05-03 06:56] LABS: Eosinophils % 0.1 % (0.1-12.0); Hematocrit 36.4 % (42.0-52.0); Hemoglobin 11.2 g/dL (14.1-18.0); Lymphocytes # 0.9 K/mm3 (0.7-4.5); Lymphocytes % 13.4 % (10-50); Mean Corpuscular HGB Conc 30.7 g/dL (31.8-35.4); Mean Corpuscular Hemoglobin 28.5 pg (27.0-31.2); Mean Corpuscular Volume 92.9 fl (80-94); Mean Platelet Volume 8.2 fl (7.4-10.4); Monocytes # 0.3 K/mm3 (0.1-1.0); Monocytes % 4.6 % (1.7-9.3); Neutrophils # 5.4 K/mm3 (1.8-7.8); Neutrophils % 81.7 % (37.0-80.0); Platelet Count 247 K/mm3 (142-424); Red Blood Count 3.92 M/mm3 (4.60-6.20); Red Cell Distribution Width 18.6 % (11.5-17.5); White Blood Count 6.6 K/mm3 (4.8-10.8)
[2023-05-03 08:00] VITALS: BP 140/74; PULSE 89; RESP 19; TEMP 36.6; O2SAT 93
[2023-05-03] MEDS: APIXABAN 5MG TABLET 5 MG PO (08:13)
[2023-05-03] MEDS: predniSONE 20MG TAB 40 MG PO (08:13)
[2023-05-03] MEDS: NIFEdipine XL 30MG TABLET 30 MG PO (08:13)
[2023-05-03 09:56] VITALS: PULSE 74; PULSE 76
--- NOTE | 2023-05-03 09:56 | EXP.PULM.PN ---
Subjective *Date: 05/03/23 *Time: 13:26 Interval history: No acute respiratory vents overnight. Patient admits continued improvement in his respiratory symptoms. Pulmonology Exam Inpatient Vital signs and Labs for Last 24 Hours: Temp Pulse Resp BP Pulse Ox O2 Del Method O2 Flow Rate 97.9 F 89 19 140/74 93 L Nasal Cannula 2 05/03/23 08:00 05/03/23 08:00 05/03/23 08:00 05/03/23 08:00 05/03/23 08:00 05/03/23 09:00 05/03/23 09:00 Laboratory Results - last 24 hr 05/03/23 05:03: WBC 6.6 D, RBC 3.92 L, Hgb 11.2 L, Hct 36.4 L, MCV 92.9, MCH 28.5, MCHC 30.7 L, RDW 18.6 H, Plt Count 247, MPV 8.2, Neut % (Auto) 81.7 H, Lymph % (Auto) 13.4, [place] % (Auto) 4.6, Eos % (Auto) 0.1, Baso % (Auto) 0.0 L, Neut # (Auto) 5.4, Lymph # (Auto) 0.9, [place] # (Auto) 0.3, Eos # (Auto) 0.0, Baso # (Auto) 0.0 05/03/23 05:53: Sodium 136, Potassium 4.0, Chloride 102, Carbon Dioxide 29, Anion Gap 9.0, BUN 29 H, Creatinine 0.90, Estimated Creat Clear 47, Estimated GFR 82, Est GFR ( Amer) 99 D, Glucose 109 H D, Calcium 9.0, Total Bilirubin 0.4, AST 24, ALT 18 D, Alkaline Phosphatase 61, Total Protein 6.2 L, Albumin 3.4 L, Globulin 2.8, Albumin/Globulin Ratio 1.2 I & O for Labs for Last 24 Hours: Intake & Output 04/30/23 05/01/23 05/02/23 05/03/23 23:59 23:59 23:59 23:59 Intake Total 360 / 360 1380 / 1380 270 / 270 Output Total 100 / 100 750 / 750 700 / 700 Balance 260 / 260 630 / 630 -430 / -430 Weight 117 lb 2 oz 117 lb 2 oz 117 lb 9 oz Constitutional: Present moderate distress Head: Present normocephalic and atraumatic ENT: Present normal exam, normal oropharynx and mucous membranes moist Neck: Present normal inspection and full ROM Respiratory: Present prolonged expiratory phase, respiratory distress, wheezes and able to speak in complete sentences Cardiac: Present S1/S2, Tachycardia and radial pulses present GI: Present soft and distention; Absent tenderness or guarding Skin: Present intact; Absent cyanosis or jaundice Neuro: Present alert, awake and oriented x 3 Extremities: Present normal inspection; Absent clubbing or cyanosis Psychiatric: Present normal affect and cooperative Assessment and Plan *Assessment and plan (1) Acute exacerbation of chronic obstructive pulmonary disease: Status: Acute Category: Medical Code(s): J44.1 - Chronic obstructive pulmonary disease with (acute) exacerbation (2) Acute and chronic respiratory failure with hypoxia: Status: Acute Category: Medical Code(s): J96.21 - Acute and chronic respiratory failure with hypoxia (3) Pneumonia: Status: Acute Qualifiers: Laterality: bilateral Lung location: unspecified part of lung Pneumonia type: due to unspecified organism Qualified Code(s): J18.9 - Pneumonia, unspecified organism Category: Medical Code(s): J18.9 - Pneumonia, unspecified organism Plan Ms. Garcia is a 77-year-old male current smoker greater than 30 PPD history of COPD, chronic hypoxic respiratory failure multiple lung nodules presented to the ER with worsening respiratory distress found to be having increasing oxygen requirements and pulmonary was called for further evaluation and management. Patient admits worsening respiratory's along with worsening cough productive phlegm and wheezing for the last 3 to 4 days progressively getting worse not improved with nebulization therapies. Patient at baseline on Wixela and Spiriva inhaler along with 2 L continuous oxygen supplementation mostly with exertion and at night. Chest x-ray on this admission no acute changes. Noted significant emphysematous changes as previous. Slight concern for interval irregular density in the left apex however this has been stable on his most recent CT from January 2023. Will monitor clinically. Will follow with 6-month CT chest as previously scheduled. Afebrile. Leukopenia upon admission. Patient on admission was initiated on levofloxacin along with DuoNebs every 4 hours scheduled. Prior culture Serratia and Acetobacter both sensitive to levofloxacin. On initial examination moderate respiratory distress. No significant wheezing appreciated on auscultation. Interval update: No acute respiratory vents overnight. Improving oxygen supplementation, 2 L saturating 93%. Wheezing significantly improved. Patient with significant improvement in his respiratory distress. Plan was made to discharge the patient on levofloxacin and prednisone with home inhaler therapies including Wixela and Spiriva along with DuoNebs every 6 hours on as-needed basis Plan: Continue oxygen supplementation to maintain O2 saturation of 90% and above Continue levofloxacin 750 mg daily to complete a total of 5-day course pending sputum culture results. Continue DuoNebs every 4 hours scheduled along with Pulmicort every 12 scheduled. Prednisone 40 mg daily x 5 days # Thank you for involving pulmonary in this patient care will follow the patient in pulmonary clinic in 5 days post discharge.
--- NOTE | 2023-05-03 13:37 | EXP.DC.SUM ---
General Admission date:: 05/01/23 Discharge date: 05/03/23 HPI HPI HPI: Patient is a 77-year-old male with past medical history of history of bradycardia, active tobacco use for past 30 years, chronic hypoxic respiratory failure on 3 L nasal cannula at home who presents to the hospital due to shortness of breath. According to the patient he feels his chest is tight, he also has cough, dry. He denies chest pain nausea vomiting diarrhea constipation dysuria fevers chills. Hospital Course Hospital Course Hospital Course: Patient is a 77-year-old male with past medical history of history of bradycardia, active tobacco use for past 30 years, chronic hypoxic respiratory failure on 3 L nasal cannula at home who presents to the hospital due to shortness of breath. According to the patient he feels his chest is tight, he also has cough, dry. He denies chest pain nausea vomiting diarrhea constipation dysuria fevers chills. Assessment and plan COPD exacerbation - improved Chronic hypoxic hypercapnic respiratory failure satting less than 90% on room air - improved DC on oral Steroids and levofloxacin, prescriptions were sent to patient pharmacy Atrial fibrillation Monitor on cardiac telemetry Resume home Eliquis Currently rate controlled Exam Data for Last 24 hours Vital signs and Labs for Last 24 Hours: Temp Pulse Resp BP Pulse Ox O2 Del Method O2 Flow Rate 97.9 F 89 19 140/74 93 L Nasal Cannula 2 05/03/23 08:00 05/03/23 08:00 05/03/23 08:00 05/03/23 08:00 05/03/23 08:00 05/03/23 11:00 05/03/23 11:00 Laboratory Results - last 24 hr 05/03/23 05:03: WBC 6.6 D, RBC 3.92 L, Hgb 11.2 L, Hct 36.4 L, MCV 92.9, MCH 28.5, MCHC 30.7 L, RDW 18.6 H, Plt Count 247, MPV 8.2, Neut % (Auto) 81.7 H, Lymph % (Auto) 13.4, Bradley % (Auto) 4.6, Eos % (Auto) 0.1, Baso % (Auto) 0.0 L, Neut # (Auto) 5.4, Lymph # (Auto) 0.9, Bradley # (Auto) 0.3, Eos # (Auto) 0.0, Baso # (Auto) 0.0 05/03/23 05:53: Sodium 136, Potassium 4.0, Chloride 102, Carbon Dioxide 29, Anion Gap 9.0, BUN 29 H, Creatinine 0.90, Estimated Creat Clear 47, Estimated GFR 82, Est GFR ( Amer) 99 D, Glucose 109 H D, Calcium 9.0, Total Bilirubin 0.4, AST 24, ALT 18 D, Alkaline Phosphatase 61, Total Protein 6.2 L, Albumin 3.4 L, Globulin 2.8, Albumin/Globulin Ratio 1.2 I & O for Last 24 hours: Intake & Output 04/30/23 05/01/23 05/02/23 05/03/23 23:59 23:59 23:59 23:59 Intake Total 360 / 360 1380 / 1380 270 / 270 Output Total 100 / 100 750 / 750 700 / 700 Balance 260 / 260 630 / 630 -430 / -430 Weight 53.127 kg 53.127 kg 53.325 kg Constitutional Constitutional: no acute distress *Routine HEENT Exam Head: Present normocephalic Eye: Present EOMI and PERRL ENT: Present mucous membranes moist *Routine Neck Exam Neck: Present supple; Absent lymphadenopathy *Routine Respiratory Exam Respiratory: Present diminished air movement *Routine Cardiovascular Exam Cardiovascular: Present RRR *Routine Abdominal Exam Abdominal: Present soft and normoactive bowel sounds; Absent tenderness *Routine Extremities Exam Extremities: Absent cyanosis, clubbing or edema *Routine Skin Exam Skin: Present warm; Absent rash *Routine Neurological Exam Neurological: Present alert and oriented X3 Results Data Completed and Pending Labs on day of discharge: Labs from last 24 hours 05/03/23 05/03/23 05:53 05:03 WBC 6.6 D RBC 3.92 L Hgb 11.2 L Hct 36.4 L MCV 92.9 MCH 28.5 MCHC 30.7 L RDW 18.6 H Plt Count 247 MPV 8.2 Neut % (Auto) 81.7 H Lymph % (Auto) 13.4 Bradley % (Auto) 4.6 Eos % (Auto) 0.1 Baso % (Auto) 0.0 L Neut # (Auto) 5.4 Lymph # (Auto) 0.9 Bradley # (Auto) 0.3 Eos # (Auto) 0.0 Baso # (Auto) 0.0 Sodium 136 Potassium 4.0 Chloride 102 Carbon Dioxide 29 Anion Gap 9.0 BUN 29 H Creatinine 0.90 Estimated Creat Clear 47 Estimated GFR 82 Est GFR ( Amer) 99 D Glucose 109 H D Calcium 9.0 Total Bilirubin 0.4 AST 24 ALT 18 D Alkaline Phosphatase 61 Total Protein 6.2 L Albumin 3.4 L Globulin 2.8 Albumin/Globulin Ratio 1.2 DS: Diagnosis Discharge Diagnosis (1) Acute exacerbation of chronic obstructive pulmonary disease: Status: Acute Code(s): J44.1 - Chronic obstructive pulmonary disease with (acute) exacerbation (2) Acute and chronic respiratory failure with hypoxia: Status: Acute Code(s): J96.21 - Acute and chronic respiratory failure with hypoxia (3) Pneumonia: Status: Acute Code(s): J18.9 - Pneumonia, unspecified organism Qualifiers: Laterality: bilateral Lung location: unspecified part of lung Pneumonia type: due to unspecified organism Qualified Code(s): J18.9 - Pneumonia, unspecified organism Meds Home Medications and Allergies Home Medications Medication Instructions Recorded Confirmed Type finasteride 5 mg tablet 5 mg PO HS prostate 06/10/20 05/01/23 History tamsulosin 0.4 mg capsule 0.4 mg PO HS prostate 06/10/20 05/01/23 History apixaban 5 mg tablet 5 mg PO BID Blood thinner/atrial 07/24/22 05/01/23 History fib magnesium 1 tab PO BID Supplement 07/24/22 01/02/23 History nifedipine 30 mg tablet,extended 30 mg PO DAILY High blood pressure 07/24/22 05/01/23 History release rosuvastatin 20 mg tablet 10 mg PO HS Cholesterol 07/24/22 05/01/23 History albuterol sulfate 90 mcg/actuation 2 puff inhalation .q4 PRN 12/05/22 05/01/23 Rx aerosol inhaler shortness of breath or wheezing 90 days #8.5 grams ipratropium 0.5 mg-albuterol 3 mg 3 ml inhalation QID PRN shortness 12/05/22 05/01/23 Rx (2.5 mg base)/3 mL nebulization of breath or wheezing 90 days #270 soln mL tiotropium bromide 2.5 2 inh inhalation DAILY 90 days #4 12/05/22 05/01/23 Rx mcg/actuation mist for inhalation grams (Spiriva Respimat) prednisone 10 mg tablet 10 mg PO DAILY 05/01/23 05/01/23 History multivitamin with iron 1 tab PO DAILY 05/02/23 05/02/23 History beclomethasone dipropionate 40 1 inh inhalation BID 30 days #10.6 05/03/23 Rx mcg/actuation HFA breath activated grams aerosol (Qvar RediHaler) levofloxacin 750 mg tablet 750 mg PO DAILY 5 days #5 tabs 05/03/23 Rx prednisone 20 mg tablet 40 mg PO DAILY 5 days #10 tabs 05/03/23 Rx New Prescriptions to Start Prescriptions: beclomethasone dipropionate [Qvar RediHaler] Conrado,Irfan levofloxacin Conrado,Irfan prednisone Conrado,Irfan Allergies Allergy/AdvReac Type Severity Reaction Status Date / Time No Known Allergies Allergy Verified 01/02/23 13:34 Discharge Plan Disposition Patient Disposition: Home, Self-Care Condition: Good Follow up Plan Follow up with: Stephan Mabry MD [Physician] - 05/20/23 1:00 pm Matheus Price MD [Staff Physician] - 05/16/23 3:00 pm (please arrive 15 minutes early for paperwork please bring insurance card) Prescriptions/Medication Reconciliation: New prednisone 20 mg Tablet 40 mg PO DAILY 5 Days Qty: 10 0RF levofloxacin 750 mg tablet 750 mg PO DAILY 5 Days Qty: 5 0RF Qvar RediHaler 40 mcg/actuation HFA aerosol breath activated 1 inh inhalation BID 30 Days Qty: 10.6 0RF Rx Instructions: administer with spacer Continued Spiriva Respimat 2.5 mcg/actuation mist 2 inh inhalation DAILY 90 Days Qty: 4 3RF ipratropium-albuterol 0.5 mg-3 mg(2.5 mg base)/3 mL solution for nebulization 3 ml inhalation QID PRN (Reason: shortness of breath or wheezing) 90 Days Qty: 270 3RF Rx Instructions: patient sometimes takes more than supposed too albuterol sulfate 90 mcg/actuation HFA aerosol inhaler 2 puff inhalation .q4 PRN (Reason: shortness of breath or wheezing) 90 Days Qty: 8.5 3RF tamsulosin 0.4 MG capsule 0.4 mg PO HS finasteride 5 MG tablet 5 mg PO HS apixaban 5 MG tablet 5 mg PO BID rosuvastatin 20 mg tablet 10 mg PO HS nifedipine 30 mg tablet extended release 30 mg PO DAILY magnesium Tablet 1 tab PO BID Rx Instructions: Pt not sure what strength, but says he takes 2 tablets in the morning and 1 tablet in the evening. multivitamin with iron Tablet 1 tab PO DAILY Held prednisone 10 mg tablet 10 mg PO DAILY Hold Instructions: Resume on 05/08/23. Problem Reconciliation Problems Reviewed?: Yes Patient Discharge Instructions ACTIVITY: Ambulate as tolerated DIET: advance to your usual diet Patient Instructions: DI for Chronic Obstructive Pulmonary Disease, DI for Atrial Fibrillation Providers Primary Care Provider: Provider,Referral Admit Provider: Homero Camp Attending Provider: Homero Camp
--- NOTE | 2023-05-06 13:45 | CARE MANAGER ---
Contacted patient related to hospital discharge. He states he is feeling much better. He has all his new medications and is aware of his follow up appointments. He is going to reschedule his appointment with Dr. Price as he has another MD appointment that day, but he states he knows how to get ahold of them. Denies any other questions or concerns. JOE Geiger
== END 2023-05-03 11:49 | disposition home or self-care (01) ==
LOC: ER 14:16 → 2ND 14:28
PROVIDERS: Admitting Provider Internal Medicine; Emergency Provider Student in an Organized Health Care Education/Training Program; Visit Provider Internal Medicine
DX: J44.1 Chronic obstructive pulmonary disease with (acute) exacerbation (principal); J18.9 Pneumonia, unspecified organism; I48.91 Unspecified atrial fibrillation; J96.21 Acute and chronic respiratory failure with hypoxia; Z79.01 Long term (current) use of anticoagulants; Z79.899 Other long term (current) drug therapy; R06.02 Shortness of breath; F17.210 Nicotine dependence, cigarettes, uncomplicated; Z99.81 Dependence on supplemental oxygen
CPT/HCPCS: 36415; 71045; 80053; 82803; 83880; 84484; 85025; 87070; 87205; 87636; 93005; 94640; 94761; 99291; G0378; J1956; J3475

== ENCOUNTER 2023-05-27 10:41 | Outpatient (CLI) | payer MEDICARE, OTHER, SELFPAY ==
[2023-05-27 11:00] VITALS: BP 170/90; PULSE 68; RESP 20; TEMP 36.8; O2SAT 99
[2023-05-27] MEDS: SODIUM CHLORIDE 0.9% 50ML BAG 50 ML IV (11:00)
[2023-05-27] MEDS: IRON SUCROSE COMPLEX 200 MG in 0.9 % SODIUM CHLORIDE 100 ML 220 MG IV (11:00)
[2023-05-27] MEDS: SODIUM CHLORIDE 0.9% 10ML FLUSH SYRINGE 10 ML IV (11:01)
[2023-05-27 11:45] VITALS: BP 168/79; PULSE 69; RESP 20; TEMP 36.8; O2SAT 99
== END 2023-05-27 11:55 | disposition home or self-care (01) ==
LOC: INF 10:43
PROVIDERS: Visit Provider Internal Medicine
DX: D50.8 Other iron deficiency anemias (principal)
CPT/HCPCS: 96365; J1756

== ENCOUNTER 2023-05-31 10:37 | Outpatient (CLI) | payer MEDICARE, OTHER, SELFPAY ==
[2023-05-31 10:47] VITALS: BP 179/91; PULSE 78; RESP 17; TEMP 36.1; O2SAT 98
[2023-05-31] MEDS: SODIUM CHLORIDE 0.9% 10ML FLUSH SYRINGE 10 ML IV (10:50)
[2023-05-31] MEDS: IRON SUCROSE COMPLEX 200 MG in 0.9 % SODIUM CHLORIDE 100 ML 220 MG IV (10:54)
[2023-05-31] MEDS: SODIUM CHLORIDE 0.9% 50ML BAG 50 ML IV (10:54)
[2023-05-31 11:30] VITALS: BP 175/81; PULSE 78; RESP 18; O2SAT 97
== END 2023-05-31 11:45 | disposition home or self-care (01) ==
LOC: INF 10:39
PROVIDERS: Visit Provider Internal Medicine
DX: D50.8 Other iron deficiency anemias (principal)
CPT/HCPCS: 96365; J1756

== ENCOUNTER 2023-06-04 10:38 | Outpatient (CLI) | payer MEDICARE, OTHER, SELFPAY ==
[2023-06-04 10:45] VITALS: BMI 18.1
[2023-06-04] MEDS: SODIUM CHLORIDE 0.9% 50ML BAG 50 ML IV (11:02)
[2023-06-04] MEDS: IRON SUCROSE COMPLEX 200 MG in 0.9 % SODIUM CHLORIDE 100 ML 220 MG IV (11:02)
[2023-06-04 11:05] VITALS: BP 145/80; PULSE 82; RESP 16; TEMP 36.8
[2023-06-04 11:09] LABS: Basophils % 0.4 % (0.1-2.0); Eosinophils % 0.1 % (0.1-12.0); Hematocrit 41.8 % (42.0-52.0); Lymphocytes # 0.6 K/mm3 (0.7-4.5); Lymphocytes % 6.6 % (10-50); Mean Corpuscular HGB Conc 31.2 g/dL (31.8-35.4); Mean Corpuscular Hemoglobin 29.4 pg (27.0-31.2); Mean Corpuscular Volume 94.3 fl (80-94); Mean Platelet Volume 8.2 fl (7.4-10.4); Monocytes # 0.2 K/mm3 (0.1-1.0); Monocytes % 2.3 % (1.7-9.3); Neutrophils # 7.9 K/mm3 (1.8-7.8); Neutrophils % 90.6 % (37.0-80.0); Platelet Count 243 K/mm3 (142-424); Red Blood Count 4.43 M/mm3 (4.60-6.20); Red Cell Distribution Width 18.3 % (11.5-17.5); White Blood Count 8.8 K/mm3 (4.8-10.8)
[2023-06-04 11:11] LABS: MANUAL DIFFERENTIAL MANUAL DIFFERENTIAL (MANUAL DIFF)
[2023-06-04 11:12] LABS: Iron 141 ug/dL (49-181)
[2023-06-04 11:21] LABS: Total Iron Binding Capacity 235 ug/dL (261-462)
[2023-06-04 11:48] VITALS: BP 155/84; PULSE 94; RESP 16
[2023-06-04 11:49] LABS: Ferritin 208 ng/ml (17.9-464)
[2023-06-04 12:37] LABS: Eosinophils % 1 % (0-3); Lymphocytes % 9 % (10-50); Monocytes % 3 % (2-9); Neutrophils % 84 % (42-76); Total Cells Counted 100
[2023-06-04 12:42] LABS: Anisocytosis 1+; Platelet Estimate Normal; Poikilocytosis 1+; Spherocytes 1+
[2023-06-04 12:44] LABS: Basophilic Stippling 1+
== END 2023-06-04 11:48 | disposition home or self-care (01) ==
PROVIDERS: PCP Internal Medicine; Visit Provider Internal Medicine
DX: D50.8 Other iron deficiency anemias (principal)
CPT/HCPCS: 82728; 83540; 83550; 85007; 85025; 96365; J1756

== ENCOUNTER 2023-07-27 14:08 | Inpatient (IN) | payer MEDICARE, OTHER, SELFPAY ==
[2023-07-27] VITALS (13 sets, daily range): BP systolic 129–199; BP diastolic 82–107; PULSE 83–97; RESP 16–24; TEMP 36.4–36.8; O2SAT 93–100; BMI 18.1; BMI 17.9
--- NOTE | 2023-07-27 14:12 | ECG_ITS ---
APPROVED REPORT Exam: Resting ECG HR:103 bpm ECG Measurements Heart Rate 103 AXES NM 122 P 82 QRSd 91 QRS 97 QT 344 T 66 QTc 403 Conclusion SINUS TACHYCARDIA WITH OCCASIONAL VENTRICULAR PREMATURE COMPLEXES BORDERLINE RIGHT AXIS DEVIATION [QRS AXIS > 90] ANTEROSEPTAL MYOCARDIAL INFARCTION , OF INDETERMINATE AGE [40+ ms Q WAVE IN V1-V4] ABNORMAL ECG Electronically signed by : RAMON LYNN, 07/28/2023 05:00:09
--- NOTE | 2023-07-27 15:03 | XR_ITS ---
PROCEDURE INFORMATION: Exam: XR Chest Exam date and time: 07/27/2023 3:04 PM Age: 78 years old Clinical indication: Cough; Additional info: Cough, SOA TECHNIQUE: Imaging protocol: Radiologic exam of the chest. Views: 1 view. COMPARISON: CR XR CHEST PORTABLE 05/01/2023 12:47 PM FINDINGS: Lungs: Pronounced COPD with scattered emphysematous changes more apparent within the right lung redemonstrated. Associated scarring mid to upper lung zones unchanged. There is also crowding of bronchovascular markings right lower lung zone secondary to COPD, unchanged. Chronic left apical thickening unchanged. Small stellate shaped opacity left upper lung zone slightly more pronounced on the current study that may be secondary to scarring. Pleural spaces: Unremarkable. No pleural effusion. No pneumothorax. Heart/Mediastinum: Unremarkable. No cardiomegaly. Bones/joints: Unremarkable for age. IMPRESSION: 1. COPD with pronounced emphysematous changes and scattered scarring both lung cook relatively stable. 2. Small indistinct stellate shaped nodular density left upper lobe possibly 2nd scarring but more apparent on the current study. Recommend a repeat chest exam in 6 months for continued surveillance.
[2023-07-27] MEDS: IPRATROPIUM/ALBUTEROL 3 ML NEB 9 ML IH (15:10)
[2023-07-27] MEDS: METHYLPREDNISOLONE SOD SUCC 125MG VIAL 125 MG IV (15:25)
--- NOTE | 2023-07-27 15:46 | [facility].EDCP ---
Discharge Plan Disposition Patient Disposition: Admitted Clinical Impressions Clinical Impression: Acute exacerbation of chronic obstructive pulmonary disease, Pulmonary nodule, Acute on chronic hypoxic respiratory failure, Abnormal gastric folds Discharge ED Provider: Claribel Calvert General Chief Complaint: Shortness of Breath/Dyspnea Stated Complaint: soa Time Seen by Provider: 07/27/23 15:01 Mode of Arrival: EMS Source of Information: Patient Limitations: No Limitations Description of Symptoms (Recalled from ER Triage Doc. by RN): short of breath History of Present Illness HPI narrative: This patient is a 78-year-old male with a history of COPD, tobacco dependence, atrial fibrillation, hyperlipidemia, and GERD presenting to the emergency department for evaluation with concern for shortness of breath. Patient reports that he has been feeling sick for several days now with progressively worsening shortness of breath. He states that it feels the same as all the time that he had pneumonia in the past. He notes he feels right-sided chest pain when he coughs and tries to take a deep breath in. No fevers, chills, rashes, swelling, abdominal pain, vomiting, or changes in bowel movements noted. He does note that he has had nausea and poor appetite. Related Data Home Medications Medication Instructions Recorded Confirmed finasteride 5 mg tablet 5 mg PO HS prostate 06/10/20 07/27/23 tamsulosin 0.4 mg capsule 0.4 mg PO HS prostate 06/10/20 07/27/23 apixaban 5 mg tablet 5 mg PO BID Blood thinner/atrial 07/24/22 07/27/23 fib magnesium 1 tab PO BID Supplement 07/24/22 07/27/23 nifedipine 30 mg tablet,extended 30 mg PO DAILY High blood pressure 07/24/22 07/27/23 release rosuvastatin 20 mg tablet 10 mg PO HS Cholesterol 07/24/22 07/27/23 prednisone 10 mg tablet 10 mg PO DAILY 05/01/23 07/27/23 multivitamin with iron 1 tab PO DAILY 05/02/23 07/27/23 albuterol sulfate 90 mcg/actuation 2 puff inhalation Q4H PRN soa 07/27/23 07/27/23 aerosol inhaler Previous Rx's Medication Instructions Recorded ipratropium 0.5 mg-albuterol 3 mg 3 ml inhalation QID PRN shortness 12/05/22 (2.5 mg base)/3 mL nebulization of breath or wheezing 90 days #270 soln mL tiotropium bromide 2.5 2 inh inhalation DAILY 90 days #4 12/05/22 mcg/actuation mist for inhalation grams (Spiriva Respimat) beclomethasone dipropionate 40 1 inh inhalation BID 30 days #10.6 05/03/23 mcg/actuation HFA breath activated grams aerosol (Qvar RediHaler) levofloxacin 750 mg tablet 750 mg PO DAILY 5 days #5 tabs 05/03/23 prednisone 20 mg tablet 40 mg (2 x 20 mg) PO DAILY 5 days 05/03/23 #10 tabs Allergies Allergy/AdvReac Type Severity Reaction Status Date / Time No Known Allergies Allergy Verified 05/27/23 11:36 [facility] Disclaimer: The information contained in this section may have been updated after the patient was seen, as this information can be updated by other users. Medical History (Updated 07/27/23 @ 21:25 by Brody Beavers MD) Multiple lung nodules on CT COPD mixed type Smoking greater than 30 pack years Pulmonary emphysema Appendicitis History of prostate disorder GERD (gastroesophageal reflux disease) Hypertension Afib COPD (chronic obstructive pulmonary disease) Surgical History History of appendectomy Family History Other Family history of COPD (chronic obstructive pulmonary disease) Family history of hyperlipidemia Family history of hypertension Family history of myocardial infarction Social History (Updated 07/27/23 @ 20:21 by Amalia John RN) Smoking Status: Current every day smoker tobacco type: cigarettes packs per day: 1 alcohol intake: former substance use type: denies use current occupational status: retired Travel in the last 8 weeks: None ROS Obtained: Yes All systems reviewed & no additional complaints except as documented Physical Exam General General appearance: alert and in no apparent distress Comment: Tired appearing Head Head exam: atraumatic and normocephalic Eye Eye exam: Present normal appearance, PERRL and EOMI ENT ENT exam: Present normal exam, normal oropharynx, mucous membranes moist and normal external ear exam Neck Neck exam: Present normal inspection, full ROM and trachea midline; Absent tenderness Chest Chest inspection: Present normal inspection and symmetric chest wall rise; Absent tenderness Respiratory Respiratory exam: Present respiratory distress (Mild), wheezes, accessory muscle use, prolonged expiratory phase and other (Tachypnea. Right breath sounds diminished especially in the right base); Absent stridor Cardiovascular Cardiovascular exam: Present regular rate and normal rhythm Abdominal Exam Abdominal exam: Present soft; Absent distention, tenderness or guarding Extremities Exam Extremities exam: Present normal inspection, full ROM and normal capillary refill; Absent tenderness or edema Back Exam Back exam: Present normal inspection and full ROM; Absent tenderness Neurological Exam Neurological exam: Present alert, oriented X3, CN II-XII intact and normal gait; Absent motor sensory deficit Psychiatric Psychiatric exam: Present normal affect and normal mood Skin Skin exam: Present warm and dry HEART Score HEART Score HEART Score assessment performed?: Yes History (anamnesis): Moderately suspicious ECG: Non-specific disturbance Age: >65 years Risk factors: 3 or more risk factors Troponin: </= normal limit HEART Score: 6 Critical Care Critical Care Time Critical Care Time: No Medical Decision Making Medical Records Medical records reviewed: Yes I reviewed the patient's medical records. [place] Inquiry Pt receiving controlled substance: No Vital Signs Vital Signs: 07/27/23 14:09 07/27/23 14:31 07/27/23 15:00 Temperature 98.1 F Temperature Source Oral Pulse Rate 97 H 92 H Pulse Rate [Right] 96 H Respiratory Rate 24 Blood Pressure 191/105 H 171/97 H Blood Pressure [Right Arm] 187/107 H Blood Pressure Mean 121 Blood Pressure Mean [Right Arm] 133 Blood Pressure Source Blood Pressure Position 02 Sat by Pulse Oximetry 100 98 100 Oxygen Delivery Method Nasal Cannula Nasal Cannula Nasal Cannula Oxygen Flow Rate (LPM) 4 4 4 07/27/23 15:10 07/27/23 15:10 07/27/23 15:10 Temperature Temperature Source Pulse Rate 91 H 91 H Pulse Rate [Right] Respiratory Rate Blood Pressure Blood Pressure [Right Arm] Blood Pressure Mean Blood Pressure Mean [Right Arm] Blood Pressure Source Blood Pressure Position 02 Sat by Pulse Oximetry 99 Oxygen Delivery Method Nasal Cannula Oxygen Flow Rate (LPM) 3 07/27/23 15:27 07/27/23 15:30 07/27/23 16:01 Temperature Temperature Source Pulse Rate 88 86 97 H Pulse Rate [Right] Respiratory Rate Blood Pressure 173/96 H 152/102 H 199/93 H Blood Pressure [Right Arm] Blood Pressure Mean Blood Pressure Mean [Right Arm] Blood Pressure Source Blood Pressure Position 02 Sat by Pulse Oximetry 99 100 93 L Oxygen Delivery Method Nasal Cannula Nasal Cannula Nasal Cannula Oxygen Flow Rate (LPM) 07/27/23 16:31 07/27/23 18:29 07/27/23 20:00 Temperature Temperature Source Pulse Rate 91 H 89 Pulse Rate [Right] Respiratory Rate Blood Pressure 170/100 H 163/97 H Blood Pressure [Right Arm] Blood Pressure Mean Blood Pressure Mean [Right Arm] Blood Pressure Source Blood Pressure Position 02 Sat by Pulse Oximetry 93 L 97 Oxygen Delivery Method Nasal Cannula Nasal Cannula Nasal Cannula Oxygen Flow Rate (LPM) 2 07/27/23 20:07 Temperature 98.2 F Temperature Source Pulse Rate 85 Pulse Rate [Right] Respiratory Rate 16 Blood Pressure 158/93 H Blood Pressure [Right Arm] Blood Pressure Mean Blood Pressure Mean [Right Arm] Blood Pressure Source Automatic Cuff Blood Pressure Position Sitting 02 Sat by Pulse Oximetry Oxygen Delivery Method Room Air Oxygen Flow Rate (LPM) Lab Data Labs: Lab Results 07/27/23 15:42: SARS-CoV-2 (PCR) Not detected, Influenza A Untype (PCR) Not detected, Influenza Type B (PCR) Not detected 07/27/23 16:10: VBG pH 7.36, VBG pCO2 51.6 H, VBG pO2 74.2 H, VBG HCO3 28.4, VBG Total CO2 29.9 H, VBG O2 Saturation 94.9 H, VBG Base Excess 2.9 H, VBG Lactic Acid 2.4 H 07/27/23 16:14: WBC 9.6, RBC 4.55 L, Hgb 13.8 L, Hct 43.5, MCV 95.6 H, MCH 30.4, MCHC 31.8, RDW 15.3, Plt Count 254, MPV 7.9, Neut % (Auto) 91.9 H, Lymph % (Auto) 6.1 L, [place] % (Auto) 1.6 L, Eos % (Auto) 0.1, Baso % (Auto) 0.3, Neut # (Auto) 8.8 H, Lymph # (Auto) 0.6 L, [place] # (Auto) 0.2, Eos # (Auto) 0.0, Baso # (Auto) 0.0, Total Counted 100, Neutrophils % (Manual) 95 H, Lymphocytes % (Manual) 5 L, Platelet Estimate Normal, RBC Morphology Normal, D-Dimer 0.35, Sodium 136, Potassium 4.4, Chloride 97 L, Carbon Dioxide 32 H, Anion Gap 11.4, BUN 21 H, Creatinine 0.90, Estimated Creat Clear 49, Estimated GFR 82, Est GFR ( Amer) 99, Glucose 120 H, Calcium 9.5, Total Bilirubin 0.6, AST 27, ALT 25, Alkaline Phosphatase 77, Troponin I 0.02, NT-Pro-B Natriuret Pep 296, Total Protein 7.4, Albumin 4.2, Globulin 3.2, Albumin/Globulin Ratio 1.3 07/27/23 18:45: Troponin I 0.02 07/27/23 18:46: Lactate < 0.5 L 07/27/23 16:14 07/27/23 16:14 Response Orders (Tests/Meds): ED MEDICATIONS Generic Name Dose Route Start Last Admin Trade Name Freq PRN Reason Stop Dose Admin Acetaminophen 1,000 mg 07/27/23 21:16 Acetaminophen 325mg Tab PO 08/26/23 21:15 Q6HP PRN Fever or Mild Pain (1-3) Hydrocodone Bitart/Acetaminophen 1 tab 07/27/23 21:16 Hydrocodone/Apap 5/325 Mg Tablet PO 08/26/23 21:15 Q4HP PRN Moderate Pain (4-6) Albuterol Sulfate 2.5 mg 07/27/23 21:16 Albuterol 0.083% 2.5 Mg/3 Ml [facility] 08/26/23 21:15 Q4HP PRN Shortness Of Breath Albuterol/Ipratropium 3 ml 07/28/23 00:00 Ipratropium/Albuterol 3 Ml [facility] 08/27/23 00:00 Q6RT DEVENDRA Apixaban 5 mg 07/27/23 21:30 07/27/23 21:26 Apixaban 5mg Tablet PO 08/26/23 21:29 5 mg BID DEVENDRA Administration Atorvastatin Calcium 40 mg 07/28/23 21:00 Atorvastatin 40mg Tablet PO 08/27/23 20:59 HS DEVENDRA Budesonide 0.5 mg 07/28/23 06:00 Budesonide 0.5mg/2ml [facility] 08/27/23 05:59 BIDRT DEVENDRA Doxycycline Hyclate 100 mg 07/28/23 09:00 Doxycycline Hycl 100 Mg Tablet PO 08/07/23 08:59 BID ON LICENSE OF [facility] Finasteride 5 mg 07/28/23 21:00 Finasteride 5mg Tablet PO 08/27/23 20:59 HS ON LICENSE OF [facility] Morphine Sulfate 4 mg 07/27/23 21:16 Morphine 4mg/Ml Syringe IV 08/26/23 21:15 Q4HP PRN Severe Pain (7-10) Nicotine 21 mg 07/27/23 21:16 Nicotine 21mg/24hr Patch TD 08/26/23 21:15 DAILYP PRN Nicotine Cravings Nifedipine 30 mg 07/28/23 09:00 Nifedipine Xl 30mg Tablet PO 08/27/23 08:59 DAILY ON LICENSE OF [facility] Ondansetron HCl 4 mg 07/27/23 21:16 Ondansetron 4mg/2ml Vial IV 08/26/23 21:15 Q8HP PRN Nausea Pantoprazole Sodium 40 mg 07/28/23 09:00 Pantoprazole 40mg Tablet PO 08/27/23 08:59 DAILY ON LICENSE OF [facility] Prednisone 40 mg 07/28/23 09:00 Prednisone 20mg Tab PO 08/27/23 08:59 DAILY ON LICENSE OF [facility] Sodium Chloride 10 ml 07/27/23 21:16 Sodium Chloride 0.9% 10ml Flush Syringe IV 08/26/23 21:15 NEEDED PRN Maintain IV Site Tamsulosin HCl 0.4 mg 07/28/23 21:00 Tamsulosin 0.4mg Capsule PO 08/27/23 20:59 HS ON LICENSE OF [facility] Discontinued Medications Generic Name Dose Route Start Last Admin Trade Name Freq PRN Reason Stop Dose Admin Albuterol/Ipratropium 9 ml 07/27/23 15:03 07/27/23 15:10 Ipratropium/Albuterol 3 Ml Neb 07/27/23 15:04 9 ml ONCE ONE Administration Albuterol/Ipratropium 3 ml 07/27/23 18:24 07/27/23 18:31 Ipratropium/Albuterol 3 Ml Neb 07/27/23 18:25 3 ml ONCE ONE Administration Ceftriaxone Sodium 2 gm/ 100 mls @ 200 mls/hr 07/27/23 18:22 07/27/23 19:02 Sodium Chloride IV 07/27/23 18:51 200 mls/hr ONCE ONE Administration Azithromycin 500 mg/ Sodium 250 mls @ 250 mls/hr 07/27/23 18:23 07/27/23 19:24 Chloride IV 07/27/23 18:24 250 mls/hr ONCE ONE Administration Iopamidol 70 ml 07/27/23 17:11 07/27/23 17:16 Iopamidol-370 (76%);100ml Bottle IV 07/27/23 17:12 70 ml ONCE ONE Administration Methylprednisolone Sodium Succinate 125 mg 07/27/23 15:04 07/27/23 15:25 Methylprednisolone Sod Succ 125mg Vial IV 07/27/23 15:05 125 mg ONCE ONE Administration Sodium Chloride 50 ml 07/27/23 17:11 07/27/23 17:16 0.9 % Sodium Chloride 50 Ml Vial IV 07/27/23 17:12 50 ml ONCE ONE Administration Sodium Chloride 10 ml 07/27/23 17:11 07/27/23 17:16 Sodium Chloride 0.9% 10ml Syr (Rad Only) IV 07/27/23 17:12 10 ml ONCE ONE Administration Sodium Chloride 500 ml 07/27/23 18:23 07/27/23 18:40 Sodium Chloride 0.9% 500ml Bag IV 07/27/23 18:24 500 ml ONCE ONE Administration ORDERS Category Date Time Status CTA Chest [CT angio chest PE protocol] Stat Cat Scan 07/27/23 16:51 Completed XR chest portable Stat Exams 07/27/23 15:03 Completed Complete Blood Count Auto Diff Stat Lab 07/27/23 16:14 Completed Comprehensive Metabolic Panel Stat Lab 07/27/23 16:14 Completed D-Dimer Stat Lab 07/27/23 16:14 Completed Lactic Acid Stat Lab 07/27/23 18:46 Completed NT Pro Brain Natriuretic Pep. Stat Lab 07/27/23 16:14 Completed Rapid PCR Covid and Flu A/B Stat Lab 07/27/23 15:42 Completed Troponin I Q3H Lab 07/27/23 18:45 Completed Troponin I Q3H Lab 07/27/23 21:35 Received Troponin I Stat Lab 07/27/23 16:14 Completed Blood Culture Stat Micro 07/27/23 18:48 Received VBG [Venous Blood Gas] Stat RT 07/27/23 16:10 Completed ECG Data Tracing #1: Attestation: I reviewed this ECG and interpreted as documented below: ECG Narrative: Sinus tachycardia with a ventricular rate of 103 bpm with occasional PVCs. Borderline right axis deviation. No acute ST changes concerning for ischemia. ECG initial impression date: 07/27/23 ECG initial impression time: 14:58 MDM Narrative Medical Decision Narrative: In summary, this patient is a 78-year-old male presenting to the Emergency Department for evaluation of shortness of breath. Differential diagnoses considered include but are not limited to pneumonia, COPD exacerbation, PE, ACS, dysrhythmia. Ruling out the most morbid conditions drove assessment. It should be noted patient's history includes COPD and tobacco dependence which are not at goal therapy. This complicates all aspects of care by increasing patient's risk for morbidity. I reviewed patient's past medical records and noted previous evaluations for pneumonia in the past. On exam, the patient is in mild respiratory distress with tachypnea, wheezing, and increased work of breathing. He has diminished breath sounds in the right lung base. I feel PE is unlikely, but cannot exclude based on your PERC criteria given age. Workup included CBC, CMP, troponin, BNP, D-dimer, viral swab, chest x-ray. EKG obtained is reassuring. He was given DuoNebs x 3 as well as IV methylprednisolone for symptomatic improvement. I independently interpreted CXR prior to the radiologist read and noted no acute focal consolidation. Please see their read for final interpretation. Labs were obtained that demonstrated negative d-dimer, negative initial troponin, compensated respiratory alkalosis, mildly elevated lactic acid, no other acutely concerning abnormalities. Patient continued to complain of severe air hunger, stating that he did not feel comfortable going home and felt like he could not breathe at all despite receiving nebs and methylprednisolone. Vitals are still normal on cardiac telemetry and he does not have significantly increased work of breathing on reassessment. CT PE was ordered for further evaluation and management. I dependently interpreted CT PE protocol and noted no obvious large PE and no significant focal consolidation. Please see radiology read for final interpretation. At 1820, patient was placed in ED observation status pending second troponin to determine whether or not the patient would be appropriate for discharge versus admission. The patient was provided serial reevaluations and cardiac monitoring while awaiting ultimate disposition. At 1940, patient continues to state that he feels extreme air hunger and does not want to go home. Second troponin without significant change. I started him on Rocephin and azithromycin with concern for COPD exacerbation in addition to administering another nebulizer treatment. I called and had an interactive discussion with the hospitalist who admitted the patient for further evaluation with concern for COPD exacerbation and shortness of breath. Patient was admitted in stable condition after 1 hour and 20 minutes in ED observation.
[2023-07-27 16:01] LABS: Coronavirus 19, PCR Not Detected (NotDetected); Influenza A, PCR Not Detected (NotDetected); Influenza B, PCR Not Detected (NotDetected)
[2023-07-27 16:34] LABS: VBG Base Excess 2.9 mmol/L (-2.4-2.3); VBG HCO3 28.4 mmol/L (23-30); VBG Oxygen Saturation 94.9 % (50-70); VBG PCO2 51.6 mmol/L (35-51); VBG PH 7.36 mmol/L (7.31-7.41); VBG PO2 74.2 mmol/L (28-40); VBG Total CO2 29.9 mmol/L (23-27)
[2023-07-27 16:36] LABS: Basophils % 0.3 % (0.1-2.0); Eosinophils % 0.1 % (0.1-12.0); Hematocrit 43.5 % (42.0-52.0); Hemoglobin 13.8 g/dL (14.1-18.0); Lymphocytes # 0.6 K/mm3 (0.7-4.5); Lymphocytes % 6.1 % (10-50); Mean Corpuscular HGB Conc 31.8 g/dL (31.8-35.4); Mean Corpuscular Hemoglobin 30.4 pg (27.0-31.2); Mean Corpuscular Volume 95.6 fl (80-94); Mean Platelet Volume 7.9 fl (7.4-10.4); Monocytes # 0.2 K/mm3 (0.1-1.0); Monocytes % 1.6 % (1.7-9.3); Neutrophils # 8.8 K/mm3 (1.8-7.8); Neutrophils % 91.9 % (37.0-80.0); Platelet Count 254 K/mm3 (142-424); Red Blood Count 4.55 M/mm3 (4.60-6.20); Red Cell Distribution Width 15.3 % (11.5-17.5); White Blood Count 9.6 K/mm3 (4.8-10.8)
[2023-07-27 16:42] LABS: MANUAL DIFFERENTIAL MANUAL DIFFERENTIAL (MANUAL DIFF)
[2023-07-27 16:43] LABS: Alanine Aminotransferase 25 U/L (12-78); Albumin Level 4.2 g/dl (3.5-5.0); Albumin/Globulin Ratio 1.3 (1.1-1.8); Alkaline Phosphatase 77 U/L (38-126); Anion Gap 11.4 mEq/L (5-15); Aspartate Amino Transferase 27 U/L (17-59); Bilirubin,Total 0.6 mg/dl (0.2-1.3); Blood Urea Nitrogen 21 mg/dl (9-20); Calcium 9.5 mg/dl (8.4-10.2); Carbon Dioxide 32 mmol/L (22.0-30.0); Chloride 97 mmol/L (98-107); Creatinine Clearance Estimated 49 mL/min (50-200); Estimated Glomerular Filt Rate 82 ml/min (>60); GFR (African American) 99 ML/MIN (>60); Globulin 3.2 g/dL (1.3-3.2); Glucose 120 mg/dl (74-100); Potassium 4.4 mmoL/L (3.5-5.1); Sodium 136 mmol/L (136-145); Total Protein,Serum 7.4 g/dl (6.3-8.2)
[2023-07-27 16:48] LABS: D-Dimer 0.35 ug/mL (0.0-0.5)
--- NOTE | 2023-07-27 16:51 | CT_ITS ---
PROCEDURE INFORMATION: Exam: CTA Chest With Contrast Exam date and time: 07/27/2023 5:12 PM Age: 78 years old Clinical indication: Other: Air hunger, acute on chronic resp failure TECHNIQUE: Imaging protocol: Computed tomographic angiography of the chest with contrast. Exam focused on the arteries. 3D rendering (Not supervised by radiologist): MIP and/or 3D reconstructed images were created by the technologist. Radiation optimization: All CT scans at this facility use at least one of these dose optimization techniques: automated exposure control; mA and/or kV adjustment per patient size (includes targeted exams where dose is matched to clinical indication); or iterative reconstruction. Contrast material: ISOVUE; Contrast volume: 70 ml; Contrast route: INTRAVENOUS (IV); COMPARISON: CT ANGIO CHEST PE PROTOCOL 11/06/2022 11:27 AM FINDINGS: Pulmonary arteries: Pulmonary vasculature is adequately opacified without filling defects or other evidence of acute pulmonary embolism. Aorta: Scattered atherosclerotic changes of the thoracic aorta. No aortic aneurysm. No evidence of aortic dissection. Lungs: Extensive COPD with pronounced upper lobe emphysematous changes redemonstrated. There is scarring and chronic subsegmental atelectasis within the upper lung zones relatively stable. Superimposed left apical pleural thickening unchanged. Stable cluster of small pulmonary nodules left mid lung zone bearing benign etiology. No new nodules detected. No acute infiltrates. Pleural spaces: See Lungs finding. Heart: Heart is not significantly enlarged. No significant coronary artery calcifications. No significant pericardial effusion. Lymph nodes: Unremarkable. No enlarged lymph nodes. Kidneys and ureters: Small nonobstructing calcifications both kidneys. Stomach and bowel: There is pronounced thickening of the gastric folds unchanged difficult to further assess on this study. Bones/joints: Unremarkable. No acute fracture. Soft tissues: Unremarkable. IMPRESSION: 1. Negative CT angiogram of the chest. No evidence of acute pulmonary embolism. 2. No acute changes within the chest. 3. COPD with pronounced emphysematous changes and upper lobe scarring, stable. 4. Stable grouping of pulmonary nodules left mid lung zone favoring benign etiology. Follow-up study in 1 year recommended for continued surveillance. 5. Pronounced thickening of the gastric folds not markedly changed but better assessed on dedicated CT exam of the abdomen and pelvis with oral contrast COMMENTS: The presence of pulmonary emphysema on CT is an independent risk factor for lung cancer. In the absence of a history or active diagnosis of lung cancer, it is recommended that this patient with emphysema be evaluated for enrollment in a low dose CT lung cancer screening program.
[2023-07-27 16:56] LABS: NT Pro Brain Natriuretic Pep. 296 pg/mL (0-450); Troponin I 0.02 ng/ml (0.00-0.034)
[2023-07-27 16:58] LABS: Lactate Venous 2.4 mmol/L (0.4-2.0)
[2023-07-27 17:14] LABS: Lymphocytes % 5 % (10-50); Neutrophils % 95 % (42-76); Platelet Estimate Normal; RBC Morphology Normal; Total Cells Counted 100
[2023-07-27] MEDS: 0.9 % SODIUM CHLORIDE 50 ML VIAL IV (17:16)
[2023-07-27] MEDS: IOPAMIDOL-370 (76%);100ML BOTTLE 70 ML IV (17:16)
[2023-07-27] MEDS: SODIUM CHLORIDE 0.9% 10ML SYR (RAD ONLY) 10 ML IV (17:16)
[2023-07-27] MEDS: IPRATROPIUM/ALBUTEROL 3 ML NEB IH ×2 (18:31→23:29)
[2023-07-27] MEDS: SODIUM CHLORIDE 0.9% 500ML BAG 500 ML IV (18:40)
[2023-07-27] MEDS: CEFTRIAXONE SODIUM 2 GM in 0.9 % SODIUM CHLORIDE 100 ML IV (19:02)
[2023-07-27 19:09] LABS: Lactic Acid < 0.5 mmol/L (0.7-2.1)
[2023-07-27] MEDS: AZITHROMYCIN 500 MG in 0.9 % SODIUM CHLORIDE 250 ML 250 MG IV (19:24)
[2023-07-27 19:43] LABS: Troponin I 0.02 ng/ml (0.00-0.034)
--- NOTE | 2023-07-27 19:58 | PC.NURSE ---
report called to JOE De La Cruz
--- NOTE | 2023-07-27 21:21 | EXP.HP ---
History of Present Illness *Admission Date: 07/27/23 *Reason for visit:: Shortness of air *History of present illness: This is a 78-year-old male the presents to [facility] emergency department with concerns of shortness of air over the last several days. 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 He reports ongoing tobacco dependence. A May 2023 hospital admission is noted. He denies associated fever, chills, hemoptysis or purulent sputum production. In the ED his oxygen requirements were noted. Imaging identifies extensive COPD and pulmonary nodules and inflammatory markers are reassuring. [facility] Medical History (Updated 07/27/23 @ 21:25 by Brody Beavers MD) Multiple lung nodules on CT COPD mixed type Smoking greater than 30 pack years Pulmonary emphysema Appendicitis History of prostate disorder GERD (gastroesophageal reflux disease) Hypertension Afib COPD (chronic obstructive pulmonary disease) Surgical History History of appendectomy Family History Other Family history of COPD (chronic obstructive pulmonary disease) Family history of hyperlipidemia Family history of hypertension Family history of myocardial infarction Social History (Updated 07/27/23 @ 20:21 by Amalia John RN) Smoking Status: Current every day smoker tobacco type: cigarettes packs per day: 1 alcohol intake: former substance use type: denies use current occupational status: retired Travel in the last 8 weeks: None Review of Systems Review of Systems Review of systems:: pertinent systems reviewed and negative unless documented below Meds Home Medications and Allergies Home Medications Medication Instructions Recorded Confirmed Type finasteride 5 mg tablet 5 mg PO HS prostate 06/10/20 07/27/23 History tamsulosin 0.4 mg capsule 0.4 mg PO HS prostate 06/10/20 07/27/23 History apixaban 5 mg tablet 5 mg PO BID Blood thinner/atrial 07/24/22 07/27/23 History fib magnesium 1 tab PO BID Supplement 07/24/22 07/27/23 History nifedipine 30 mg tablet,extended 30 mg PO DAILY High blood pressure 07/24/22 07/27/23 History release rosuvastatin 20 mg tablet 10 mg PO HS Cholesterol 07/24/22 07/27/23 History ipratropium 0.5 mg-albuterol 3 mg 3 ml inhalation QID PRN shortness 12/05/22 07/27/23 Rx (2.5 mg base)/3 mL nebulization of breath or wheezing 90 days #270 soln mL tiotropium bromide 2.5 2 inh inhalation DAILY 90 days #4 12/05/22 07/27/23 Rx mcg/actuation mist for inhalation grams (Spiriva Respimat) prednisone 10 mg tablet 10 mg PO DAILY 05/01/23 07/27/23 History multivitamin with iron 1 tab PO DAILY 05/02/23 07/27/23 History beclomethasone dipropionate 40 1 inh inhalation BID 30 days #10.6 05/03/23 07/27/23 Rx mcg/actuation HFA breath activated grams aerosol (Qvar RediHaler) levofloxacin 750 mg tablet 750 mg PO DAILY 5 days #5 tabs 05/03/23 07/27/23 Rx prednisone 20 mg tablet 40 mg (2 x 20 mg) PO DAILY 5 days 05/03/23 07/27/23 Rx #10 tabs albuterol sulfate 90 mcg/actuation 2 puff inhalation Q4H PRN soa 07/27/23 07/27/23 History aerosol inhaler New Prescriptions to Start Prescriptions: Allergies Allergy/AdvReac Type Severity Reaction Status Date / Time No Known Allergies Allergy Verified 05/27/23 11:36 Exam Data for Last 24 hours Vital signs and Labs for Last 24 Hours: Temp Pulse Resp BP Pulse Ox O2 Del Method O2 Flow Rate 97.6 F 84 24 129/94 H 98 Nasal Cannula 2 07/27/23 20:24 07/27/23 20:24 07/27/23 20:24 07/27/23 20:24 07/27/23 20:24 07/27/23 20:24 07/27/23 20:24 Laboratory Results - last 24 hr 07/27/23 15:42: SARS-CoV-2 (PCR) Not detected, Influenza A Untype (PCR) Not detected, Influenza Type B (PCR) Not detected 07/27/23 16:10: VBG pH 7.36, VBG pCO2 51.6 H, VBG pO2 74.2 H, VBG HCO3 28.4, VBG Total CO2 29.9 H, VBG O2 Saturation 94.9 H, VBG Base Excess 2.9 H, VBG Lactic Acid 2.4 H 07/27/23 16:14: WBC 9.6, RBC 4.55 L, Hgb 13.8 L, Hct 43.5, MCV 95.6 H, MCH 30.4, MCHC 31.8, RDW 15.3, Plt Count 254, MPV 7.9, Neut % (Auto) 91.9 H, Lymph % (Auto) 6.1 L, [place] % (Auto) 1.6 L, Eos % (Auto) 0.1, Baso % (Auto) 0.3, Neut # (Auto) 8.8 H, Lymph # (Auto) 0.6 L, [place] # (Auto) 0.2, Eos # (Auto) 0.0, Baso # (Auto) 0.0, Total Counted 100, Neutrophils % (Manual) 95 H, Lymphocytes % (Manual) 5 L, Platelet Estimate Normal, RBC Morphology Normal, D-Dimer 0.35, Sodium 136, Potassium 4.4, Chloride 97 L, Carbon Dioxide 32 H, Anion Gap 11.4, BUN 21 H, Creatinine 0.90, Estimated Creat Clear 49, Estimated GFR 82, Est GFR ( Amer) 99, Glucose 120 H, Calcium 9.5, Total Bilirubin 0.6, AST 27, ALT 25, Alkaline Phosphatase 77, Troponin I 0.02, NT-Pro-B Natriuret Pep 296, Total Protein 7.4, Albumin 4.2, Globulin 3.2, Albumin/Globulin Ratio 1.3 07/27/23 18:45: Troponin I 0.02 07/27/23 18:46: Lactate < 0.5 L I & O for Last 24 hours: Intake & Output 07/24/23 07/25/23 07/26/23 07/27/23 23:59 23:59 23:59 23:59 Weight 54.93 kg Constitutional Constitutional: no acute distress, thin, chronically ill appearing, disheveled and cooperative *Routine HEENT Exam Head: Present normocephalic and atraumatic Eye: Present EOMI and PERRL ENT: Present mucous membranes moist *Routine Neck Exam Neck: Present supple; Absent JVD or lymphadenopathy *Routine Respiratory Exam Respiratory: Present rhonchi, wheezes, diminished air movement, normal respiratory effort, able to speak in complete sentences and symmetric chest movement *Routine Cardiovascular Exam Cardiovascular: Present RRR; Absent murmur or JVD *Routine Abdominal Exam Abdominal: Present soft and normoactive bowel sounds; Absent tenderness *Routine Rectal Exam Rectal:: deferred *Routine Genitalia Exam Genitalia:: deferred *Routine Extremities Exam Extremities: Present full ROM and pulses intact; Absent edema *Routine Skin Exam Skin: Present intact; Absent rash *Routine Neurological Exam Neurological: Present alert, oriented X3, moving all extremities, vision grossly intact, hearing grossly intact and normal speech; Absent sensory deficit or motor deficit Routine Psychiatric Exam Psychiatric: Present normal affect, normal thought process, cooperative, good insight and good judgment Assessment and Plan *Assessment and plan (1) Acute exacerbation of chronic obstructive pulmonary disease: Status: Acute Category: Medical Code(s): J44.1 - Chronic obstructive pulmonary disease with (acute) exacerbation (2) Bronchitis: Status: Acute Category: Medical Code(s): J40 - Bronchitis, not specified as acute or chronic (3) Multiple lung nodules on CT: Status: Chronic Category: Medical Code(s): R91.8 - Other nonspecific abnormal finding of lung field (4) Smoking greater than 30 pack years: Status: Chronic Category: Social Hx Code(s): F17.210 - Nicotine dependence, cigarettes, uncomplicated (5) Afib: Status: Acute Category: Medical Code(s): I48.91 - Unspecified atrial fibrillation (6) GERD (gastroesophageal reflux disease): Status: Acute Category: Medical Code(s): K21.9 - Gastro-esophageal reflux disease without esophagitis Plan This is a 78-year-old male with severe emphysema with ongoing tobacco dependence that presents to the ED with concerns of shortness of air. Imaging identifies no infiltrates and there is concern for COPD exacerbation with bronchitis. Problems addressed as follows: Acute COPD exacerbation Bronchitis Pulmonary nodules Tobacco dependence Telemetry monitoring Pulse oximetry monitoring ED chest x-ray with COPD ED CTA chest with extensive COPD pulmonary nodules and bronchitis Trending labs and inflammatory markers Tobacco cessation education Nicotine replacement therapy Valerie/[place] inhalation therapy ICS therapy Prednisone p.o. therapy Doxycycline therapy Outpatient follow-up with pulmonology Chronic atrial fibrillation Telemetry monitoring Factor Xa inhibitor therapy Dihydropyridine calcium channel joon therapy GERD Previous EGD noted PPI therapy Aspiration precautions VTE prophylaxis: Eliquis CODE STATUS: Full code POA: Jessi Santiago-juliana
[2023-07-27] MEDS: APIXABAN 5MG TABLET 5 MG PO (21:26)
[2023-07-27 22:27] LABS: Troponin I 0.02 ng/ml (0.00-0.034)
[2023-07-28] VITALS (11 sets, daily range): BP systolic 114–162; BP diastolic 66–83; PULSE 75–103; RESP 18–96; TEMP 36.4–36.7; O2SAT 89–99; BMI 17.9
[2023-07-28] MEDS: ACETAMINOPHEN 325MG TAB 1000 MG PO (05:33)
[2023-07-28] MEDS: BUDESONIDE 0.5MG/2ML NEB 0.5 MG IH ×2 (06:20→18:08)
[2023-07-28] MEDS: IPRATROPIUM/ALBUTEROL 3 ML NEB IH ×5 (06:20→21:32)
[2023-07-28 07:10] LABS: Adenovirus,PCR Not Detected (NotDetected); Bordetella Pertussis Not Detected (NotDetected); Chlamydophila Pneumoniae, PCR Not Detected (NotDetected); Coronavirus 19, PCR Not Detected (NotDetected); Coronavirus 229E Not Detected (NotDetected); Coronavirus NL63 Not Detected (NotDetected); Coronavirus OC43 Not Detected (NotDetected); Coronovirus HKU1,PCR Not Detected (NotDetected); Human Metapneumovirus Not Detected (NotDetected); Influenza A, PCR Not Detected (NotDetected); Influenza AH1, 2009 Not Detected (NotDetected); Influenza AH1, PCR Not Detected (NotDetected); Influenza AH3,PCR Not Detected (NotDetected); Influenza B, PCR Not Detected (NotDetected); Mycoplasma Pneumoniae, PCR Not Detected (NotDetected); Parainfluenza 1, PCR Not Detected (NotDetected); Parainfluenza 2, PCR Not Detected (NotDetected); Parainfluenza 3, PCR Not Detected (NotDetected); Parainfluenza 4, PCR Not Detected (NotDetected); Respiratory Syncytial Virus Not Detected (NotDetected); Rhinovirus/Enterovirus Not Detected (NotDetected)
[2023-07-28 07:38] LABS: Magnesium 1.6 mg/dl (1.6-2.3)
--- NOTE | 2023-07-28 09:10 | EXP.ACUTE.PN ---
Subjective *Date: 07/28/23 *Time: 10:58 Interval history: Patient continues to complain of dyspnea. Extensive review of his chart in the room with him on rounds. Has severe COPD with FEV1/FVC ratio of 21, FEV1 is 31% predicted FVC is 16% predicted. He also has a severely reduced DLCO at 32% predicted. 6-minute walk test shows desaturations. Patient was smoking up until admission. Discussed optimizing breathing treatments today on exam. Denies chest pain, nausea, vomiting, diarrhea. Complains of lungs burning however. Alert and oriented x 4. Nephew at bedside. Medical Exam Vital signs and Labs for Last 24 Hours: Vital Signs Temp Pulse Pulse Resp BP BP Pulse Ox 07/28/23 07:32 98.1 F 103 H 22 147/71 H 93 L 07/28/23 06:35 07/28/23 06:20 88 07/28/23 06:20 87 07/28/23 06:20 94 L 07/28/23 05:00 07/28/23 04:00 97.9 F 75 18 136/66 99 07/28/23 03:00 07/28/23 01:00 07/27/23 23:43 97.8 F 83 18 153/82 H 100 07/27/23 23:39 86 07/27/23 23:39 87 07/27/23 23:38 07/27/23 23:00 07/27/23 21:00 07/27/23 20:24 97.6 F 84 24 129/94 H 98 07/27/23 20:07 98.2 F 85 16 158/93 H 07/27/23 20:00 07/27/23 18:29 89 163/97 H 97 07/27/23 16:31 91 H 170/100 H 93 L 07/27/23 16:01 97 H 199/93 H 93 L 07/27/23 15:30 86 152/102 H 100 07/27/23 15:27 88 173/96 H 99 07/27/23 15:10 91 H 07/27/23 15:10 91 H 07/27/23 15:10 99 07/27/23 15:00 92 H 171/97 H 100 07/27/23 14:31 97 H 191/105 H 98 07/27/23 14:09 98.1 F 96 H 24 187/107 H 100 O2 Del Method O2 Flow Rate 07/28/23 07:32 Nasal Cannula 2 07/28/23 06:35 Nasal Cannula 2 07/28/23 06:20 07/28/23 06:20 07/28/23 06:20 Nasal Cannula 2 07/28/23 05:00 Nasal Cannula 2 07/28/23 04:00 Nasal Cannula 07/28/23 03:00 Nasal Cannula 2 07/28/23 01:00 Nasal Cannula 2 07/27/23 23:43 07/27/23 23:39 07/27/23 23:39 07/27/23 23:38 Nasal Cannula 2 07/27/23 23:00 Nasal Cannula 2 07/27/23 21:00 Nasal Cannula 2 07/27/23 20:24 Nasal Cannula 2 07/27/23 20:07 Room Air 07/27/23 20:00 Nasal Cannula 2 07/27/23 18:29 Nasal Cannula 07/27/23 16:31 Nasal Cannula 07/27/23 16:01 Nasal Cannula 07/27/23 15:30 Nasal Cannula 07/27/23 15:27 Nasal Cannula 07/27/23 15:10 07/27/23 15:10 07/27/23 15:10 Nasal Cannula 3 07/27/23 15:00 Nasal Cannula 4 07/27/23 14:31 Nasal Cannula 4 07/27/23 14:09 Nasal Cannula 4 Intake and Output 07/27/23 07/28/23 07/28/23 23:59 07:59 15:59 Intake Total 320 / 320 Output Total 325 / 325 Balance -325 / -275 320 / 320 Intake: Intake, Oral Amount 320 / 320 Output: Output, Urine Amount 325 / 325 Other: Number of Voids 2 Number of Unmeasured Voids 0 Weight 54.93 kg 54.93 kg Patient Weight 07/28/23 23:59 Weight 54.93 kg Laboratory Results - last 24 hr 07/27/23 15:42: SARS-CoV-2 (PCR) Not detected, Influenza A Untype (PCR) Not detected, Influenza Type B (PCR) Not detected 07/27/23 16:10: VBG pH 7.36, VBG pCO2 51.6 H, VBG pO2 74.2 H, VBG HCO3 28.4, VBG Total CO2 29.9 H, VBG O2 Saturation 94.9 H, VBG Base Excess 2.9 H, VBG Lactic Acid 2.4 H 07/27/23 16:14: WBC 9.6, RBC 4.55 L, Hgb 13.8 L, Hct 43.5, MCV 95.6 H, MCH 30.4, MCHC 31.8, RDW 15.3, Plt Count 254, MPV 7.9, Neut % (Auto) 91.9 H, Lymph % (Auto) 6.1 L, [place] % (Auto) 1.6 L, Eos % (Auto) 0.1, Baso % (Auto) 0.3, Neut # (Auto) 8.8 H, Lymph # (Auto) 0.6 L, [place] # (Auto) 0.2, Eos # (Auto) 0.0, Baso # (Auto) 0.0, Total Counted 100, Neutrophils % (Manual) 95 H, Lymphocytes % (Manual) 5 L, Platelet Estimate Normal, RBC Morphology Normal, D-Dimer 0.35, Sodium 136, Potassium 4.4, Chloride 97 L, Carbon Dioxide 32 H, Anion Gap 11.4, BUN 21 H, Creatinine 0.90, Estimated Creat Clear 49, Estimated GFR 82, Est GFR ( Amer) 99, Glucose 120 H, Calcium 9.5, Total Bilirubin 0.6, AST 27, ALT 25, Alkaline Phosphatase 77, Troponin I 0.02, NT-Pro-B Natriuret Pep 296, Total Protein 7.4, Albumin 4.2, Globulin 3.2, Albumin/Globulin Ratio 1.3 07/27/23 18:45: Troponin I 0.02 07/27/23 18:46: Lactate < 0.5 L 07/27/23 21:35: Troponin I 0.02 07/28/23 06:16: Magnesium 1.6 I & O for Labs for Last 24 Hours: Intake & Output 07/25/23 07/26/23 07/27/23 07/28/23 23:59 23:59 23:59 23:59 Intake Total 320 / 320 Output Total 325 / 325 Balance -325 / -275 320 / 320 Weight 54.93 kg 54.93 kg Constitutional: Present no acute distress, cachectic and chronically ill appearing Head: Present atraumatic and normocephalic ENT: Present normal exam Respiratory: Present prolonged expiratory phase, wheezes and diminished air movement; Absent rhonchi or crackles Comment:: Barrel chested Cardiac: Present Reg Rate and Rhythm GI: Present soft and normal bowel sounds; Absent distention or tenderness Extremities: Present normal inspection and full ROM Comment:: Sarcopenia Skin: Present intact; Absent erythema Neuro: Present Grossly Intact, alert, awake, oriented x 3 and moves all extremities Assessment and Plan *Assessment and plan (1) Acute exacerbation of chronic obstructive pulmonary disease: Status: Acute Category: Medical Code(s): J44.1 - Chronic obstructive pulmonary disease with (acute) exacerbation (2) Bronchitis: Status: Acute Category: Medical Code(s): J40 - Bronchitis, not specified as acute or chronic (3) Multiple lung nodules on CT: Status: Chronic Category: Medical Code(s): R91.8 - Other nonspecific abnormal finding of lung field (4) Smoking greater than 30 pack years: Status: Chronic Category: Social Hx Code(s): F17.210 - Nicotine dependence, cigarettes, uncomplicated (5) Afib: Status: Acute Category: Medical Code(s): I48.91 - Unspecified atrial fibrillation (6) GERD (gastroesophageal reflux disease): Status: Acute Category: Medical Code(s): K21.9 - Gastro-esophageal reflux disease without esophagitis (7) Pulmonary cachexia due to COPD: Status: Acute Category: Medical Code(s): R64 - Cachexia; J44.9 - Chronic obstructive pulmonary disease, unspecified Plan This is a 78-year-old male with severe emphysema with ongoing tobacco dependence that presents to the ED with concerns of shortness of air. Imaging identifies no infiltrates and there is concern for COPD exacerbation with bronchitis. Patient necessitating increased oxygen with movement, 2 L at rest. Still feels significantly short of breath and having burning in his lungs as he puts it. Comprehensive respiratory panel pending. Problems addressed as follows: Acute exacerbation of severe COPD Chronic hypoxemic respiratory failure Bronchitis Pulmonary nodules Tobacco dependence Continue supplemental oxygen as needed, goal saturation 90 to 95%. 2 to 3 L at rest. Increased to 4 to 5 L with exertion given his 6-minute walk test with desaturations. Reviewed patient's chart with recent telemetry 6 months ago. Telemetry monitoring Personally reviewed CT of chest with extensive emphysema and scarring along with pulmonary nodules and bronchitis. Comprehensive respiratory panel reviewed and negative DuoNebs every 4 hours scheduled Prednisone 40 mg daily x 5 days Doxycycline 5 days twice daily Trelegy 200 inhaler initiated Needs close follow-up with pulmonology after discharge Pulmicort twice daily scheduled CBC CMP, magnesium ordered for the morning. Nicotine patch as needed Chronic atrial fibrillation Telemetry monitoring Continue Eliquis 500 mg twice daily Dihydropyridine calcium channel joon therapy GERD Previous EGD noted PPI therapy Aspiration precautions VTE prophylaxis: Eliquis CODE STATUS: Full code POA: Jessi Santiago-friend
--- NOTE | 2023-07-28 09:35 | HMH.PHAINT1 ---
Pharmacy Intervention Comments: MEDICATION RECONCILIATION COMPLETED ON PATIENT USING EXTERNAL FILL HISTORY FROM PHARMACY AND DISCHARGE SUMMARY FROM PREVIOUS ADMISSION. -MARY JONES, DUANED
[2023-07-28] MEDS: FLUTICASONE/UMECLIDIN/VILANTER 200/62.5/25MCG INHALER 1 PUFF IH (10:01)
[2023-07-28] MEDS: MAGNESIUM SULFATE IN WATER 2 GM/50 ML PIGGYBACK IV (10:31)
[2023-07-28] MEDS: DOXYCYCLINE HYCL 100 MG TABLET PO ×2 (10:32→20:44)
[2023-07-28] MEDS: NIFEdipine XL 30MG TABLET 30 MG PO (10:32)
[2023-07-28] MEDS: APIXABAN 5MG TABLET 5 MG PO ×2 (10:32→20:44)
[2023-07-28] MEDS: PANTOPRAZOLE 40MG TABLET 40 MG PO (10:32)
[2023-07-28] MEDS: predniSONE 20MG TAB 40 MG PO (10:33)
--- NOTE | 2023-07-28 14:39 | HMH.PTEV ---
Physical Therapy Evaluation Rehab PT IP Evaluation Start: 07/28/23 10:41 Freq: ONCE Status: Active Protocol: Document 07/28/23 14:30 HWADE (Rec: 07/28/23 14:39 HWADE [id number]) Subjective/History History History Pt is a 78 year old male that presented to [facility] ED with reports of increasing shortness of air. Pt required increased oxygen with mobility and was diagnosed with acute COPD exacerbation. Pt was admitted for IP management and further evaluation. PMH: COPD, HTN, GERD Subjective Subjective Pt presents supine in bed upon arrival, pleasant and agreeable to PT evaluation. Pt AOx4, denies reports of pain at rest. Pt reports at baseline, he lives at home alone in a H with 1 KATYA. Pt reports he does not use an AD for mobility. Pt reports x1 GLF, states he tripped over a throw rug. Pt does not drive, states he has a caregiver x1 day/wk that assists with grocery shopping and household tasks. Pt states he is often most limited in mobility d/t dyspnea. Pt performed supine to sit on EOB with mod (I). Pt performed STS transfer with CGA for safety. Pt ambulated x24' with CGA and no AD. Pt demonstrated decreased balance and reaching for objects to hold onto during ambulation. Pt began to experience dyspnea and required a seated rest break, VC for PLB and increased time to recover. Following evaluation, pt left seated on EOB with call light and all needs within reach. New diagnosis of cancer in past 12 No months? Rehab PT IP Eval Objective Appearance Patient Behavior Appropriate,Cooperative Patient Orientation Person,Place,Time,Situation Difficulty following instructions none Speech Pattern Clear,Appropriate Ambulation Patient Able to Ambulate Yes Ambulation Observation IP General Gait Pattern Observation Narrow Based Gait,Shuffling Step Ambulation Distance (feet) 24 Ambulation Assistive Device None Ambulation Ability Contact Guard/Hand Hold Balance Ability to Arise Able, uses arms to help Sitting Balance Steady, safe Standing Balance Unsteady Dynamic Sitting Balance Ability Good Dynamic Standing Balance Ability Fair Transfers Bed Transfer Ability Independent Sit to Stand Bed Transfer Ability Contact Guard/Hand Hold ROM All Extremities PT ROM Status WFL MMT RLE PT MMT ABN Abnormal MMT Grade MMT grossly 4/5 LLE PT MMT ABN Abnormal MMT Grade MMT grossly 4/5 Rehab PT IP prob,goals,plan Problems Date of Evaluation: 07/28/23 PT IP Problems Transfers,Gait,Balance,Self care,Safety Rehab Potential Rehab Potential Fair Equipment Needs Assistive Devices Rolling / Wheeled Walker Plan PT Intervention Plan Transfers,Gait,Balance,Self care,Safety,Therapeutic Exercise PT Plan Frequency Daily Duration LOS Discharge Goals Sit to Stand Chair Transfer Ability Independent Ambulation Assistive Device Rolling Walker Ambulation Distance (feet) 100 Discharge Plan PT Discharge Plan At this time, pt would benefit from skilled PT intervention during IP admission to address the identified impairments, reduce risk of falls, improve endurance, prevent functional decline and allow pt to return to OF. Once medically stable, recommend pt to d/c home with 24hr support and HHPT versus STR to address remaining impairments. Pt appears to be most limited in mobility by dyspnea, recommend pt to d/c with RW to improve energy conservation and dynamic balance. Eval Complexity Eval Charge Codes 27320 - Moderate Complexity PHYSICIAN CERTIFICATION: I certify the specified therapy services for Carroll Garcia are required, authorized, and reviewed every 30 days.
[2023-07-28] MEDS: ATORVASTATIN 40MG TABLET 40 MG PO (20:44)
[2023-07-28] MEDS: TAMSULOSIN 0.4MG CAPSULE 0.400000000000000022 MG PO (20:44)
[2023-07-28] MEDS: FINASTERIDE 5MG TABLET 5 MG PO (20:44)
[2023-07-29] VITALS: BP 141/79; PULSE 86; RESP 17; TEMP 36.4; O2SAT 94
[2023-07-29 04:00] VITALS: BP 134/62; PULSE 84; RESP 17; TEMP 36.7; O2SAT 97; BMI 18.0
[2023-07-29] MEDS: BUDESONIDE 0.5MG/2ML NEB 0.5 MG IH (06:26)
[2023-07-29] MEDS: FLUTICASONE/UMECLIDIN/VILANTER 200/62.5/25MCG INHALER 1 PUFF IH (06:26)
[2023-07-29] MEDS: IPRATROPIUM/ALBUTEROL 3 ML NEB IH (06:26)
[2023-07-29 06:27] VITALS: PULSE 85; PULSE 87; O2SAT 97
--- NOTE | 2023-07-29 06:38 | PC.NURSE ---
Pt is alert and oriented. Remains on baseline 2L NC, O2 sat >90%. Wheezing noted. Pt remains in his personal clothing at request. Pt has had no complaints. Scattered bruising to visible area. Uses urinal. Call light in reach.
[2023-07-29 06:44] LABS: Basophils % 0.1 % (0.1-2.0); Eosinophils % 0.1 % (0.1-12.0); Hematocrit 37.8 % (42.0-52.0); Hemoglobin 12.2 g/dL (14.1-18.0); Lymphocytes # 0.6 K/mm3 (0.7-4.5); Lymphocytes % 6.7 % (10-50); Mean Corpuscular HGB Conc 32.3 g/dL (31.8-35.4); Mean Corpuscular Hemoglobin 30.6 pg (27.0-31.2); Mean Corpuscular Volume 94.9 fl (80-94); Mean Platelet Volume 8.5 fl (7.4-10.4); Monocytes # 0.5 K/mm3 (0.1-1.0); Monocytes % 4.8 % (1.7-9.3); Neutrophils # 8.4 K/mm3 (1.8-7.8); Neutrophils % 88.3 % (37.0-80.0); Platelet Count 211 K/mm3 (142-424); Red Blood Count 3.98 M/mm3 (4.60-6.20); Red Cell Distribution Width 15.3 % (11.5-17.5); White Blood Count 9.5 K/mm3 (4.8-10.8)
[2023-07-29 06:48] LABS: MANUAL DIFFERENTIAL MANUAL DIFFERENTIAL (MANUAL DIFF)
[2023-07-29 06:52] LABS: Alanine Aminotransferase 19 U/L (12-78); Albumin Level 3.3 g/dl (3.5-5.0); Albumin/Globulin Ratio 1.3 (1.1-1.8); Alkaline Phosphatase 57 U/L (38-126); Anion Gap 6.7 mEq/L (5-15); Aspartate Amino Transferase 24 U/L (17-59); Bilirubin,Total 0.3 mg/dl (0.2-1.3); Blood Urea Nitrogen 27 mg/dl (9-20); Calcium 9.2 mg/dl (8.4-10.2); Carbon Dioxide 34 mmol/L (22.0-30.0); Chloride 98 mmol/L (98-107); Creatinine Clearance Estimated 48 mL/min (50-200); Estimated Glomerular Filt Rate 72 ml/min (>60); GFR (African American) 88 ML/MIN (>60); Globulin 2.6 g/dL (1.3-3.2); Glucose 104 mg/dl (74-100); Potassium 3.7 mmoL/L (3.5-5.1); Sodium 135 mmol/L (136-145); Total Protein,Serum 5.9 g/dl (6.3-8.2)
--- NOTE | 2023-07-29 07:19 | EXP.DC.SUM ---
General Admission date:: 07/27/23 Discharge date: 07/29/23 HPI HPI HPI: This is a 78-year-old male the presents to [facility] emergency department with concerns of shortness of air over the last several days. 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 He reports ongoing tobacco dependence. A May 2023 hospital admission is noted. He denies associated fever, chills, hemoptysis or purulent sputum production. In the ED his oxygen requirements were noted. Imaging identifies extensive COPD and pulmonary nodules and inflammatory markers are reassuring. Hospital Course Hospital Course Hospital Course: This is a 78-year-old male with severe emphysema with ongoing tobacco dependence that presents to the ED with concerns of shortness of air. Imaging identifies no infiltrates and there is concern for COPD exacerbation with bronchitis. Patient necessitating increased oxygen with movement, 2 L at rest. Shortness of breath improved somewhat during admission. Therapy evaluated. Stable to discharge home with home health. Review of chart shows that his pulmonary function test have been abnormal for a while, would benefit from increasing oxygen with exertion, stable on 2 L at rest. Given his stability on baseline oxygen, will discharge home with continued treatment. Counseled on need to quit smoking as he was smoking until admission. Problems addressed as follows: Acute exacerbation of severe COPD Chronic hypoxemic respiratory failure Bronchitis Pulmonary nodules Tobacco dependence Continue supplemental oxygen as needed, goal saturation 90 to 95%. 2 to 3 L at rest. Increase to 3-4 L with exertion given his 6-minute walk test with desaturations [address] of chest shows extensive emphysema with scarring along pulmonary nodules and bronchitis. Comprehensive respiratory panel was negative. Will continue inhaler and breathing treatments at home. Transitioned to Trelegy during admission, discharged home with inhaler. If unable to obtain due to insurance, resume Breztri when Trelegy is completed. Will continue 5 days of antibiotics and steroids with doxycycline and prednisone. Would recommend follow-up with pulmonology whom he has seen in the past. Patient already has oxygen at home. Prescribed nicotine patch at discharge to promote smoking cessation. Patient states he is going to quit but was smoking up until the day before admission. Stable on baseline oxygen, discharged with home health. Chronic atrial fibrillation Telemetry monitoring during admission. Rate controlled. Continue Eliquis twice daily at home regimen. GERD Previous EGD noted. Continue PPI therapy. Exam Data for Last 24 hours Vital signs and Labs for Last 24 Hours: Temp Pulse Resp BP Pulse Ox O2 Del Method O2 Flow Rate 98.1 F 85 17 134/62 97 Nasal Cannula 2 07/29/23 04:00 07/29/23 06:27 07/29/23 04:00 07/29/23 04:00 07/29/23 06:27 07/29/23 07:00 07/29/23 07:00 Laboratory Results - last 24 hr 07/27/23 15:42: Chlamy pneumoniae PCR Not detected, Adenovirus (PCR) Not detected, B. pertussis DNA (PCR) Not detected, Coronavirus OC43 (PCR) Not detected, Coronavirus HKU1 (PCR) Not detected, Coronavirus 229E (PCR) Not detected, SARS-CoV-2 (PCR) Not detected, Coronavirus NL63 (PCR) Not detected, Human Metapneumovir PCR Not detected, Influenza A (H1) PCR Not detected, Influ A (H1N1/09) PCR Not detected, Influenza A (H3) PCR Not detected, Influenza Type A (PCR) Not detected, Influenza Type B (PCR) Not detected, M. pneumoniae (PCR) Not detected, Parainfluenza 1 (PCR) Not detected, Parainfluenza 2 (PCR) Not detected, Parainfluenza 3 (PCR) Not detected, Parainfluenza 4 (PCR) Not detected, RSV (PCR) Not detected, Entero/Rhino (PCR) Not detected 07/28/23 06:16: Magnesium 1.6 07/29/23 06:06: WBC 9.5, RBC 3.98 L, Hgb 12.2 L, Hct 37.8 L, MCV 94.9 H, MCH 30.6, MCHC 32.3, RDW 15.3, Plt Count 211, MPV 8.5, Neut % (Auto) 88.3 H, Lymph % (Auto) 6.7 L, [place] % (Auto) 4.8, Eos % (Auto) 0.1, Baso % (Auto) 0.1, Neut # (Auto) 8.4 H, Lymph # (Auto) 0.6 L, [place] # (Auto) 0.5, Eos # (Auto) 0.0, Baso # (Auto) 0.0, Sodium 135 L, Potassium 3.7, Chloride 98, Carbon Dioxide 34 H, Anion Gap 6.7, BUN 27 H D, Creatinine 1.00, Estimated Creat Clear 48, Estimated GFR 72, Est GFR ( Amer) 88, Glucose 104 H, Calcium 9.2, Magnesium 2.0 D, Total Bilirubin 0.3, AST 24, ALT 19, Alkaline Phosphatase 57, Total Protein 5.9 L, Albumin 3.3 L, Globulin 2.6, Albumin/Globulin Ratio 1.3 I & O for Last 24 hours: Intake & Output 07/26/23 07/27/23 07/28/23 07/29/23 23:59 23:59 23:59 23:59 Intake Total 830 / 950 120 / 120 Output Total 325 / 325 300 / 300 700 / 700 Balance -325 / -275 530 / 650 -580 / -580 Weight 54.93 kg 54.93 kg 55.202 kg Microbiology Reports for the Last 24 Hours: Microbiology 07/27/23 18:48 Blood Blood Culture - Preliminary NO GROWTH AFTER 24 HOURS 07/27/23 18:48 Blood Blood Culture - Preliminary NO GROWTH AFTER 24 HOURS Constitutional Constitutional: no acute distress, cachectic, chronically ill appearing and cooperative *Routine HEENT Exam Head: Present normocephalic Eye: Present EOMI and PERRL ENT: Present mucous membranes moist *Routine Neck Exam Neck: Present supple; Absent lymphadenopathy *Routine Respiratory Exam Respiratory: Present prolonged expiratory phase, wheezes and diminished air movement; Absent rhonchi or crackles *Routine Cardiovascular Exam Cardiovascular: Present RRR *Routine Abdominal Exam Abdominal: Present soft and normoactive bowel sounds; Absent tenderness *Routine Rectal Exam Patient deferred: visual exam *Routine Exam Patient deferred: penile exam *Routine Extremities Exam Extremities: Absent cyanosis, clubbing or edema *Routine Skin Exam Skin: Present warm; Absent rash *Routine Neurological Exam Neurological: Present alert, oriented X3 and moving all extremities; Absent altered mental status Routine Psychiatric Exam Psychiatric: Present normal affect Results Data Completed and Pending Labs on day of discharge: Labs from last 24 hours 07/29/23 07/28/23 07/27/23 06:06 06:16 15:42 WBC 9.5 RBC 3.98 L Hgb 12.2 L Hct 37.8 L MCV 94.9 H MCH 30.6 MCHC 32.3 RDW 15.3 Plt Count 211 MPV 8.5 Neut % (Auto) 88.3 H Lymph % (Auto) 6.7 L [place] % (Auto) 4.8 Eos % (Auto) 0.1 Baso % (Auto) 0.1 Neut # (Auto) 8.4 H Lymph # (Auto) 0.6 L [place] # (Auto) 0.5 Eos # (Auto) 0.0 Baso # (Auto) 0.0 Sodium 135 L Potassium 3.7 Chloride 98 Carbon Dioxide 34 H Anion Gap 6.7 BUN 27 H D Creatinine 1.00 Estimated Creat Clear 48 Estimated GFR 72 Est GFR ( Amer) 88 Glucose 104 H Calcium 9.2 Magnesium 2.0 D 1.6 Total Bilirubin 0.3 AST 24 ALT 19 Alkaline Phosphatase 57 Total Protein 5.9 L Albumin 3.3 L Globulin 2.6 Albumin/Globulin Ratio 1.3 Chlamy pneumoniae PCR Not detected Adenovirus (PCR) Not detected B. pertussis DNA (PCR) Not detected Coronavirus OC43 (PCR) Not detected Coronavirus HKU1 (PCR) Not detected Coronavirus 229E (PCR) Not detected SARS-CoV-2 (PCR) Not detected Coronavirus NL63 (PCR) Not detected Human Metapneumovir PCR Not detected Influenza A (H1) PCR Not detected Influ A (H1N1/09) PCR Not detected Influenza A (H3) PCR Not detected Influenza Type A (PCR) Not detected Influenza Type B (PCR) Not detected M. pneumoniae (PCR) Not detected Parainfluenza 1 (PCR) Not detected Parainfluenza 2 (PCR) Not detected Parainfluenza 3 (PCR) Not detected Parainfluenza 4 (PCR) Not detected RSV (PCR) Not detected Entero/Rhino (PCR) Not detected Preliminary micro results at discharge 07/27/23 18:48 Blood Culture - Preliminary Blood NO GROWTH AFTER 24 HOURS 07/27/23 18:48 Blood Culture - Preliminary Blood NO GROWTH AFTER 24 HOURS DS: Diagnosis Discharge Diagnosis (1) Acute exacerbation of chronic obstructive pulmonary disease: Status: Acute Code(s): J44.1 - Chronic obstructive pulmonary disease with (acute) exacerbation (2) Bronchitis: Status: Acute Code(s): J40 - Bronchitis, not specified as acute or chronic (3) Multiple lung nodules on CT: Status: Chronic Code(s): R91.8 - Other nonspecific abnormal finding of lung field (4) Smoking greater than 30 pack years: Status: Chronic Code(s): F17.210 - Nicotine dependence, cigarettes, uncomplicated (5) Afib: Status: Acute Code(s): I48.91 - Unspecified atrial fibrillation (6) GERD (gastroesophageal reflux disease): Status: Acute Code(s): K21.9 - Gastro-esophageal reflux disease without esophagitis (7) Pulmonary cachexia due to COPD: Status: Acute Code(s): R64 - Cachexia; J44.9 - Chronic obstructive pulmonary disease, unspecified Meds Home Medications and Allergies Home Medications Medication Instructions Recorded Confirmed Type finasteride 5 mg tablet 5 mg PO HS 06/10/20 07/28/23 History tamsulosin 0.4 mg capsule 0.4 mg PO HS 06/10/20 07/28/23 History apixaban 5 mg tablet 5 mg PO BID atrial fib 07/24/22 07/28/23 History nifedipine 30 mg tablet,extended 30 mg PO DAILY 07/24/22 07/28/23 History release rosuvastatin 20 mg tablet 10 mg PO HS 07/24/22 07/28/23 History multivitamin with iron 1 tab PO DAILY 05/02/23 07/28/23 History ipratropium 0.5 mg-albuterol 3 mg 3 ml inhalation QIDP PRN shortness 07/28/23 07/28/23 History (2.5 mg base)/3 mL nebulization of breath or wheezing soln albuterol sulfate 90 mcg/actuation 2 puff inhalation Q4HP PRN 07/29/23 Rx aerosol inhaler Shortness Of Breath 30 days #8.5 grams doxycycline hyclate 100 mg tablet 100 mg PO BID 3 days #6 tabs 07/29/23 Rx fluticasone fur. 200 mcg-umeclid 1 inh inhalation DAILY 30 days #1 07/29/23 Rx 62.5 mcg-vilant 25 mcg ea inhalat.powder (Trelegy Ellipta) nicotine 21 mg/24 hr daily 21 mg transdermal DAILYP PRN 07/29/23 Rx transdermal patch Nicotine Cravings 28 days #28 ea pantoprazole 40 mg tablet,delayed 40 mg PO DAILY 30 days #30 tabs 07/29/23 Rx release prednisone 20 mg tablet 40 mg (2 x 20 mg) PO DAILY 3 days 07/29/23 Rx #6 tabs New Prescriptions to Start Prescriptions: albuterol sulfate Abeba,Kurt doxycycline hyclate Abeba,Kurt [id number] [Trelegy Ellipta] Abeba,Kurt nicotine Abeba,Kurt pantoprazole Abeba,Kurt prednisone Abeba,Kurt Allergies Allergy/AdvReac Type Severity Reaction Status Date / Time No Known Allergies Allergy Verified 05/27/23 11:36 Discharge Plan Disposition Patient Disposition: Home Health Service Condition: Fair Discharge Order Discharge Orders: Discharge Order (Routine); Ordered 07/29/23 Ordered By: Kurt Us Follow up Plan Follow up with: ProviderMary MD [Primary Care Provider] - Enter time for follow up (please call for appointment) Stephan Mabry MD [Physician] - Enter time for follow up (please call for appointment) Carlota Sidhu APRN [Nurse Practitioner] - Enter time for follow up (please call for appointment) Prescriptions/Medication Reconciliation: New prednisone 20 mg Tablet 40 mg PO DAILY 3 Days Qty: 6 0RF pantoprazole 40 mg Tablet,Delayed Release (Dr/Ec) 40 mg PO DAILY 30 Days Qty: 30 0RF nicotine 21 mg/24 hr Patch 24 Hour 21 mg transdermal DAILYP PRN (Reason: Nicotine Cravings) 28 Days Qty: 28 0RF doxycycline hyclate 100 mg Tablet 100 mg PO BID 3 Days Qty: 6 0RF Trelegy Ellipta 200-62.5-25 mcg Blister With Device 1 inh inhalation DAILY 30 Days Qty: 1 0RF Continued tamsulosin 0.4 MG capsule 0.4 mg PO HS finasteride 5 MG tablet 5 mg PO HS apixaban 5 MG tablet 5 mg PO BID rosuvastatin 20 mg tablet 10 mg PO HS nifedipine 30 mg tablet extended release 30 mg PO DAILY ipratropium-albuterol 0.5 mg-3 mg(2.5 mg base)/3 mL solution for nebulization 3 ml inhalation QIDP PRN (Reason: shortness of breath or wheezing) multivitamin with iron Tablet 1 tab PO DAILY Changed albuterol sulfate 90 mcg/actuation HFA aerosol inhaler 2 puff inhalation Q4HP PRN (Reason: Shortness Of Breath) 30 Days Qty: 8.5 0RF Discontinued prednisone 10 mg tablet 10 mg PO DAILY Curly Aerosphere 160-9-4.8 mcg/actuation HFA aerosol inhaler 2 puff INHALATION BID Problem Reconciliation Problems Reviewed?: Yes Patient Discharge Instructions ACTIVITY: Continue current activity DIET: continue same diet Patient Instructions: Chronic Obstructive Pulmonary Disease (Alternative Therapy), Chronic Obstructive Pulmonary Disease, COPD: When to Call for Help Providers Primary Care Provider: Provider,Referral Admit Provider: Kurt Us Attending Provider: Kurt Us
[2023-07-29 08:00] VITALS: BP 126/65; PULSE 91; RESP 20; TEMP 36.4; O2SAT 95
[2023-07-29] MEDS: PANTOPRAZOLE 40MG TABLET 40 MG PO (08:03)
[2023-07-29] MEDS: predniSONE 20MG TAB 40 MG PO (08:04)
[2023-07-29] MEDS: APIXABAN 5MG TABLET 5 MG PO (08:04)
[2023-07-29] MEDS: NIFEdipine XL 30MG TABLET 30 MG PO (08:04)
[2023-07-29] MEDS: DOXYCYCLINE HYCL 100 MG TABLET PO (08:04)
[2023-07-29 08:23] LABS: Lymphocytes % 7 % (10-50); Monocytes % 2 % (2-9); Neutrophils % 91 % (42-76); Platelet Estimate Normal; RBC Morphology Normal; Total Cells Counted 100
--- NOTE | 2023-07-29 11:44 | CARE MANAGER ---
Addendum entered by Jaclyn Douglas 07/30/23 13:42: Ynes gonzalez/ Vicki stated that services will start this week. Original Note: Patient will need home health services at discharge and has no preference. Information sent to caretenders. JOE Geiger
--- NOTE | 2023-07-30 13:55 | CARE MANAGER ---
Contacted patient related to hospital discharge. He states he is doing better. He denies questions or concerns and has his new medications. He has not made his follow up appointments yet, but will. JOE Geiger
--- NOTE | 2023-08-01 01:51 | PC.NURSE ---
prelim blood cx reports are negative. pending final reading
== END 2023-07-29 10:20 | disposition home health service (06) | DRG 191 ==
LOC: ER 15:00 → 2ND 07-28 02:59
PROVIDERS: Family Medicine; Admitting Provider Internal Medicine Adolescent Medicine; Emergency Provider Emergency Medicine; Visit Provider Internal Medicine Adolescent Medicine
DX: J44.1 Chronic obstructive pulmonary disease with (acute) exacerbation (principal); I48.20 Chronic atrial fibrillation, unspecified; R64 Cachexia; F17.210 Nicotine dependence, cigarettes, uncomplicated; K21.9 Gastro-esophageal reflux disease without esophagitis; J44.9 Chronic obstructive pulmonary disease, unspecified; E78.5 Hyperlipidemia, unspecified; Z99.81 Dependence on supplemental oxygen
CPT/HCPCS: 36415; 71045; 71275; 80053; 82803; 83605; 83735; 83880; 84484; 85007; 85025; 85378; 87040; 87581; 87632; 87635; 87636; 87798; 93005; 94640; 94760; 97162; J0456; J0696; J3475; Q9967

== ENCOUNTER 2023-08-29 11:47 | Outpatient (CLI) | payer MEDICARE, OTHER, SELFPAY ==
--- OUTSIDE RECORDS SUMMARY | 2023-08-29 11:50 | XMS_ITS ---
Author Name Unknown Organization Unknown ALLERGIES AND ADVERSE REACTIONS No information ASSESSMENT No information CHIEF COMPLAINT No information MEDICATIONS No information OBJECTIVE DATA No information PHYSICAL EXAMINATION No information TREATMENT PLAN Planned Care Start Date Provider Encounter for Check-up [phone] [facility] PROBLEMS No information RESULTS No information REVIEW OF SYSTEMS No information SUBJECTIVE DATA No information VITAL SIGNS No information
--- NOTE | 2023-08-29 11:52 | XR_ITS ---
FINAL REPORT CLINICAL HISTORY: SHORTNESS OF BREATH, CHRONIC COUGH COMPARISON: 07/27/2023 FINDINGS: Note is made of emphysematous disease. There are small pleural effusions. There has been interval development in an oval opacity in left suprahilar region, which could be developing pneumonia given relatively short interval. The mediastinum has a normal appearance. The cardiac silhouette is unremarkable. IMPRESSION: Severe emphysematous disease. New left suprahilar density, given short interval this is likely benign but continued imaging follow-up recommended. Reviewed, Interpreted and Dictated by Hetal Miles MD Transcribed by Fifi Andrade Authenticated and [facility]
== END 2023-08-29 23:59 | disposition home or self-care (01) ==
LOC: RAD 11:48
PROVIDERS: PCP Nurse Practitioner Family; Visit Provider Nurse Practitioner Family
DX: R06.02 Shortness of breath (principal); R05.3 Chronic cough
CPT/HCPCS: 71046

== ENCOUNTER 2024-03-11 11:17 | Emergency (ER) | payer MEDICARE, OTHER, SELFPAY ==
[2024-03-11] VITALS (7 sets, daily range): BP systolic 106–166; BP diastolic 70–91; PULSE 79–87; RESP 17–25; TEMP 36.8–37.4; O2SAT 92–100; BMI 19.0
--- NOTE | 2024-03-11 11:20 | ECG_ITS ---
APPROVED REPORT Exam: Resting ECG HR:82 bpm ECG Measurements Heart Rate 82 AXES MN 127 P 85 QRSd 84 QRS 89 QT 386 T 38 QTc 425 Conclusion SINUS RHYTHM POSSIBLE LEFT ATRIAL ENLARGEMENT [-0.1mV P-WAVE IN V1/V2] ANTEROSEPTAL MYOCARDIAL INFARCTION , OF INDETERMINATE AGE [40+ ms Q WAVE IN V1-V4] ABNORMAL ECG UNCONFIRMED REPORT Electronically signed by : SOILA PHILLIPS, 03/13/2024 05:46:47
--- NOTE | 2024-03-11 11:29 | XR_ITS ---
FINAL REPORT CLINICAL HISTORY: copd exac, hypoxia COMPARISON: 08/29/2023 FINDINGS: The heart size is normal. The mediastinum is normal. The lungs are hyperinflated. There is coarse linear density in both lungs probably due to scarring and fibrosis. There are localized densities in the left upper lobe, similar to the previous exam, again probably due to scarring. There are no pleural effusions. There is no pneumothorax. There is no osseous abnormality. IMPRESSION: Advanced changes of obstructive airways disease with scarring and fibrosis, which appear stable. Reviewed, Interpreted and Dictated by Ciaran Liu MD Transcribed by Sravani Gautam Authenticated and [facility]
[2024-03-11 11:38] LABS: Coronavirus 19, PCR Not Detected (NotDetected); Influenza A, PCR Not Detected (NotDetected); Influenza B, PCR Not Detected (NotDetected)
[2024-03-11 11:40] LABS: Basophils # 0.1 K/mm3 (0-0.2); Basophils % 0.5 % (0.1-2.0); Eosinophils % 0.4 % (0.1-12.0); Hematocrit 39.5 % (42.0-52.0); Hemoglobin 12.5 g/dL (14.1-18.0); Lymphocytes % 8.9 % (10-50); Mean Corpuscular HGB Conc 31.6 g/dL (31.8-35.4); Mean Corpuscular Hemoglobin 30.2 pg (27.0-31.2); Mean Corpuscular Volume 95.4 fl (80-94); Mean Platelet Volume 9.4 fl (7.4-10.4); Monocytes # 0.7 K/mm3 (0.1-1.0); Monocytes % 5.9 % (1.7-9.3); Neutrophils # 9.2 K/mm3 (1.8-7.8); Neutrophils % 83.6 % (37.0-80.0); Platelet Count 271 K/mm3 (142-424); Red Blood Count 4.14 M/mm3 (4.60-6.20); Red Cell Distribution Width 13.6 % (11.5-17.5)
--- NOTE | 2024-03-11 11:40 | PC.NURSE ---
XR AT BEDSIDE
[2024-03-11] MEDS: IPRATROPIUM/ALBUTEROL 3 ML NEB 9 ML IH (11:41)
--- NOTE | 2024-03-11 11:46 | PC.NURSE ---
PT PROVIDED WARM BLANKET AND URINAL. CALL LIGHT WITHIN REACH
[2024-03-11 12:03] LABS: Anion Gap 7.4 mEq/L (5-15); Blood Urea Nitrogen 28 mg/dl (9-20); Calcium 9.6 mg/dl (8.4-10.2); Carbon Dioxide 39 mmol/L (22.0-30.0); Chloride 94 mmol/L (98-107); Creatinine Clearance Estimated 50 mL/min (50-200); Estimated Glomerular Filt Rate 82 ml/min (>60); GFR (African American) 99 ML/MIN (>60); Glucose 89 mg/dl (74-100); Potassium 4.4 mmoL/L (3.5-5.1); Sodium 136 mmol/L (136-145)
[2024-03-11 12:15] LABS: NT Pro Brain Natriuretic Pep. 621 pg/mL (0-450)
[2024-03-11 12:17] LABS: Troponin I < 0.01 ng/ml (0.00-0.034)
--- NOTE | 2024-03-11 12:21 | ED_ITS ---
Discharge Plan Disposition Patient Disposition: Home, Self-Care Condition: Good Prescriptions Prescriptions: New albuterol sulfate 90 mcg/actuation HFA aerosol inhaler 2 inh inhalation Q4H PRN (Reason: shortness of breath or wheezing) Qty: 8.5 0RF prednisone 20 mg tablet 40 mg PO DAILY 3 Days Qty: 6 0RF amoxicillin-pot clavulanate [Augmentin] 500-125 mg tablet 1 tab PO BID Qty: 20 0RF No Action tamsulosin 0.4 MG capsule 0.4 mg PO HS finasteride 5 MG tablet 5 mg PO HS apixaban 5 MG tablet 5 mg PO BID rosuvastatin 20 mg tablet 10 mg PO HS nifedipine 30 mg tablet extended release 30 mg PO DAILY ipratropium-albuterol 0.5 mg-3 mg(2.5 mg base)/3 mL solution for nebulization 3 ml inhalation QIDP PRN (Reason: shortness of breath or wheezing) prednisone 20 mg Tablet 40 mg PO DAILY 3 Days Qty: 6 0RF pantoprazole 40 mg Tablet,Delayed Release (Dr/Ec) 40 mg PO DAILY 30 Days Qty: 30 0RF nicotine 21 mg/24 hr Patch 24 Hour 21 mg transdermal DAILYP PRN (Reason: Nicotine Cravings) 28 Days Qty: 28 0RF doxycycline hyclate 100 mg Tablet 100 mg PO BID 3 Days Qty: 6 0RF Trelegy Ellipta 200-62.5-25 mcg Blister With Device 1 inh inhalation DAILY 30 Days Qty: 1 0RF albuterol sulfate 90 mcg/actuation HFA aerosol inhaler 2 puff inhalation Q4HP PRN (Reason: Shortness Of Breath) 30 Days Qty: 8.5 0RF multivitamin with iron Tablet 1 tab PO DAILY Referrals Follow up/Referrals: Maribeth Mclean APRN [Primary Care Provider] - See instructions Activity Restrictions/Add. Instructions Additional Instructions/Restrictions: Take the antibiotics and steroids as prescribed. A new albuterol inhaler was prescribed and should be used every 4 hours in addition to your pre-existing COPD medications. Take a dose of your Lasix today and reevaluate the need for another dose tomorrow based on the lower leg swelling. Continue to wear your 2 L nasal cannula oxygen at home. Please follow up with your primary care provider in 2-3 days. Please return to ED if your symptoms worsen, change in location, change in severity, new symptoms develop or if you become concerned for your health. Clinical Impressions Clinical Impression: Chronic obstructive pulmonary disease with acute exacerbation Instructions Patient Instructions: DI for Chronic Obstructive Pulmonary Disease Print Language Print Language: Israeli Discharge ED Provider: Agustina Narvaez HPI General Chief Complaint: Shortness of Breath/Dyspnea Stated Complaint: SOA Time Seen by Provider: 03/11/24 11:19 Mode of Arrival: EMS Source of Information: Patient Limitations: No Limitations Description of Symptoms (Recalled from ER Triage Doc. by RN): PT C/O SHORTNESS OF BREATH THAT BECAME WORSE LAST NIGHT. OCCASIONAL COUGH, NASAL CONGESTION, WHEEZING. PT DENIES FEVER. WEARS HOME O2 AT 2L/NC. History of Present Illness HPI narrative: Patient is a 78-year-old male presenting with shortness of air. Patient has a history significant for COPD. Patient wears 2 L nasal cannula at baseline. Patient states he began having increased coughing and shortness of breath over the last 2 days that acutely worsened last night and prevented him from sleeping. Patient states he had not increased his oxygen at home. Patient also noted increased lower leg edema stated he had not taken his Lasix today. He did not note the swelling yesterday. Patient unsure if he has had fevers at home. Patient denies chest pain, back pain, headache, blurred vision, bowel or bladder dysfunction. Related Data Home Medications ?Medication ?Instructions ?Recorded ?Confirmed finasteride 5 mg tablet 5 mg PO HS 06/10/20 07/28/23 tamsulosin 0.4 mg capsule 0.4 mg PO HS 06/10/20 07/28/23 apixaban 5 mg tablet 5 mg PO BID atrial fib 07/24/22 07/28/23 nifedipine 30 mg tablet,extended 30 mg PO DAILY 07/24/22 07/28/23 release rosuvastatin 20 mg tablet 10 mg PO HS 07/24/22 07/28/23 multivitamin with iron 1 tab PO DAILY 05/02/23 07/28/23 ipratropium 0.5 mg-albuterol 3 mg 3 ml inhalation QIDP PRN shortness 07/28/23 07/28/23 (2.5 mg base)/3 mL nebulization of breath or wheezing soln Previous Rx's ?Medication ?Instructions ?Recorded albuterol sulfate 90 mcg/actuation 2 puff inhalation Q4HP PRN 07/29/23 aerosol inhaler Shortness Of Breath 30 days #8.5 grams doxycycline hyclate 100 mg tablet 100 mg PO BID 3 days #6 tabs 07/29/23 fluticasone fur. 200 mcg-umeclid 1 inh inhalation DAILY 30 days #1 07/29/23 62.5 mcg-vilant 25 mcg ea inhalat.powder (Trelegy Ellipta) nicotine 21 mg/24 hr daily 21 mg transdermal DAILYP PRN 07/29/23 transdermal patch Nicotine Cravings 28 days #28 ea pantoprazole 40 mg tablet,delayed 40 mg PO DAILY 30 days #30 tabs 07/29/23 release prednisone 20 mg tablet 40 mg (2 x 20 mg) PO DAILY 3 days 07/29/23 #6 tabs albuterol sulfate 90 mcg/actuation 2 inh inhalation Q4H PRN shortness 03/11/24 aerosol inhaler of breath or wheezing #8.5 grams amoxicillin 500 mg-potassium 1 tab PO BID #20 tabs 03/11/24 clavulanate 125 mg tablet (Augmentin) prednisone 20 mg tablet 40 mg (2 x 20 mg) PO DAILY 3 days 03/11/24 #6 tabs Allergies Allergy/AdvReac Type Severity Reaction Status Date / Time No Known Allergies Allergy Verified 05/27/23 11:36 [facility] Disclaimer: The information contained in this section may have been updated after the patient was seen, as this information can be updated by other users. Medical History (Updated 03/11/24 @ 13:58 by Agustina Narvaez MD) Encounter for screening for malignant neoplasm of lung Alcohol withdrawal seizure Anemia Multiple lung nodules on CT COPD mixed type Smoking greater than 30 pack years Pulmonary emphysema Appendicitis History of prostate disorder GERD (gastroesophageal reflux disease) Hypertension Afib COPD (chronic obstructive pulmonary disease) Surgical History History of appendectomy Family History Other Family history of COPD (chronic obstructive pulmonary disease) Family history of hyperlipidemia Family history of hypertension Family history of myocardial infarction Social History (Updated 07/27/23 @ 20:21 by Amalia John RN) Smoking Status: Current every day smoker tobacco type: cigarettes packs per day: 1 alcohol intake: former substance use type: denies use current occupational status: retired Travel in the last 8 weeks: None Have you lived/traveled outside US in past 30 days?: No Contact w/someone who lives/traveled outside US past 30 days?: No Exposure to someone with infectious disease in past 14 days?: No Do you have a fever (greater than 100.4 F or 38 C)?: No Have you tested positive for COVID-19: No Exposed to someone with COVID-19 in past 14 days?: No Do you have a sore throat?: No Do you have a cough?: No Do you have any weakness?: No Do you have any diarrhea?: No Are you experiencing any unusual bleeding?: No Do you have any muscle aches/pain?: No Do you have any abdominal pain?: No Are you experiencing loss of taste or smell?: No Other Medical History Have you received the Flu Vaccine for this season: No Have you received the Pneumonia Vaccine: No ROS Obtained: Yes All systems reviewed & no additional complaints except as documented Physical Exam General General appearance: alert and in no apparent distress Respiratory Respiratory exam: Present normal lung sounds bilaterally; Absent respiratory distress Cardiovascular Cardiovascular exam: Present regular rate and normal rhythm; Absent JVD Abdominal Exam Abdominal exam: Present soft; Absent distention or tenderness Extremities Exam Extremities exam: Present normal inspection, full ROM and normal capillary refill; Absent calf tenderness Neurological Exam Neurological exam: Present alert and oriented X3 HEART Score HEART Score HEART Score assessment performed?: Yes History (anamnesis): Slightly suspicious ECG: Non-specific disturbance Age: >65 years Risk factors: 1-2 risk factors Troponin: </= normal limit HEART Score: 4 Critical Care Critical Care Time Critical Care Time: No Medical Decision Making Medical Records Medical records reviewed: Yes I reviewed the patient's medical records. Mitchell Inquiry Pt receiving controlled substance: No Mitchell was queried for this patient: No Vital Signs Vital Signs: 03/11/24 11:17 03/11/24 11:30 03/11/24 12:00 Temperature 99.3 F Temperature Source Axillary Pulse Rate 79 84 Pulse Rate [Apical] 83 Respiratory Rate 24 21 24 Blood Pressure 108/84 L 140/88 Blood Pressure [Left Arm] 106/91 L Blood Pressure Mean [Left Arm] 96 Blood Pressure Source [Left Arm] Automatic Cuff Blood Pressure Position [Left Arm] Sitting 02 Sat by Pulse Oximetry 100 98 100 Oxygen Delivery Method Nasal Cannula Nasal Cannula Oxygen Flow Rate (LPM) 2 4 03/11/24 12:30 03/11/24 13:00 03/11/24 13:30 Temperature Temperature Source Pulse Rate 87 87 80 Pulse Rate [Apical] Respiratory Rate 25 H 21 17 Blood Pressure 133/72 155/72 H 151/70 H Blood Pressure [Left Arm] Blood Pressure Mean [Left Arm] Blood Pressure Source [Left Arm] Blood Pressure Position [Left Arm] 02 Sat by Pulse Oximetry 97 92 L 95 Oxygen Delivery Method Oxygen Flow Rate (LPM) Lab Data Lab results reviewed: Yes I reviewed the patient's lab results. Labs: Lab Results 03/11/24 11:05: WBC 11.0 H, RBC 4.14 L, Hgb 12.5 L, Hct 39.5 L, MCV 95.4 H, MCH 30.2, MCHC 31.6 L, RDW 13.6, Plt Count 271, MPV 9.4, Neut % (Auto) 83.6 H, Lymph % (Auto) 8.9 L, Arenac % (Auto) 5.9, Eos % (Auto) 0.4, Baso % (Auto) 0.5, Neut # (Auto) 9.2 H, Lymph # (Auto) 1.0, Arenac # (Auto) 0.7, Eos # (Auto) 0.0, Baso # (Auto) 0.1, Sodium 136, Potassium 4.4, Chloride 94 L, Carbon Dioxide 39 H, Anion Gap 7.4, BUN 28 H, Creatinine 0.90, Estimated Creat Clear 50, Estimated GFR 82, Est GFR ( Amer) 99, Glucose 89, Calcium 9.6, Troponin I < 0.01, NT-Pro-B Natriuret Pep 621 H 03/11/24 11:34: SARS-CoV-2 (PCR) Not detected, Influenza A Untype (PCR) Not detected, Influenza Type B (PCR) Not detected 03/11/24 11:05 03/11/24 11:05 Response Orders (Tests/Meds): ED MEDICATIONS Discontinued Medications Generic Name Dose Route Start Last Admin Trade Name Freq PRN Reason Stop Dose Admin Albuterol/Ipratropium 9 ml 03/11/24 11:31 03/11/24 11:41 Ipratropium/Albuterol 3 Ml Neb IH 03/11/24 11:32 9 ml ONCE ONE Administration ORDERS Category Date Time Status CXR --portable [XR chest portable] Stat Exams 03/11/24 11:29 Completed BMP [Basic Metabolic Panel] Stat Lab 03/11/24 11:05 Completed BNP [NT Pro Brain Natriuretic Pep.] Stat Lab 03/11/24 11:05 Completed CBC w/Auto Diff [Complete Blood Count Auto Diff] Stat Lab 03/11/24 11:05 Completed Rapid PCR Covid and Flu A/B Stat Lab 03/11/24 11:34 Completed Trop I [Troponin I] Stat Lab 03/11/24 11:05 Completed Troponin I Q3H Lab 03/11/24 14:30 Ordered Troponin I Q3H Lab 03/11/24 17:30 Ordered ECG Data Tracing #1: ECG Narrative: Sinus rhythm with a rate of 82. No QTc prolongation, no significant ST elevation/depression or evidence of acute ischemia. Initial tracing with poor quality due to patient's respiratory rate with significant artifact. Will repeat after breathing treatments completed. MDM Narrative Medical Decision Narrative: In summary, patient is a 78-year-old male with a history significant for COPD presenting with shortness of air. Differential diagnosis includes but is not limited to, COPD exacerbation, pneumonia, viral URI, ACS, bronchitis, CHF, among others. Patient has a documented history of severe COPD requiring 2L NC at all times, A-fib, acute on chronic hypoxic respiratory failure, GERD. Patient to be evaluated with CBC, BMP, BNP, troponin, CXR, EKG. Patient treated with 3 times DuoNebs and placed on supplemental oxygen. Labs significant for leukocytosis, slight anemia, no thrombocytopenia. Electrolytes significant for increased carbon dioxide at 39. Troponin < 0.01. BNP 621. Initial EKG did not demonstrate ischemic changes, however significant artifact complicated the tracing. Upon completion of patient's DuoNebs, a repeat EKG was performed with significantly decreased artifact. Patient is in sinus rhythm with a rate of 81, no QTc prolongation, no significant ST elevation/depression or evidence of acute ischemia. Patient's respiratory swab negative for COVID or influenza. Upon reevaluation, patient saturating 97% on his home 2 L nasal cannula. Patient is in no distress and stable for discharge home with antibiotics and steroids, given likely COPD exacerbation. Patient advised to follow-up with his primary care provider in the next 3 days for reevaluation. Patient also advised to take his home Lasix PRN as prescribed. Return precautions given. Patient in agreement with plan and stable for discharge. Agustina Narvaez MD PGY-3, Emergency Medicine
--- NOTE | 2024-03-11 12:34 | ECG_ITS ---
APPROVED REPORT Exam: Resting ECG HR:81 bpm ECG Measurements Heart Rate 81 AXES OR 118 P 87 QRSd 90 QRS 93 QT 423 T 84 QTc 461 Conclusion SINUS RHYTHM WITH SHORT OR INTERVAL BORDERLINE RIGHT AXIS DEVIATION [QRS AXIS > 90] SEPTAL MYOCARDIAL INFARCTION , OF INDETERMINATE AGE [40+ ms Q WAVE IN V1/V2] ABNORMAL ECG UNCONFIRMED REPORT Electronically signed by : SOILA PHILLIPS, 03/13/2024 05:45:30
--- NOTE | 2024-03-11 12:37 | PC.NURSE ---
1234: Repeat EKG completed and given to LUÍS CORTEZ
== END 2024-03-11 14:12 | disposition home or self-care (01) ==
PROVIDERS: Emergency Provider Student in an Organized Health Care Education/Training Program; PCP Nurse Practitioner Family
DX: J44.1 Chronic obstructive pulmonary disease with (acute) exacerbation (principal); R06.02 Shortness of breath; R05.9 Cough, unspecified; R09.81 Nasal congestion; R06.2 Wheezing; R22.43 Localized swelling, mass and lump, lower limb, bilateral; F17.210 Nicotine dependence, cigarettes, uncomplicated
CPT/HCPCS: 71045; 80048; 83880; 84484; 85025; 87636; 93005; 99284; J7620

== ENCOUNTER 2024-07-20 09:25 | Inpatient (IN) | payer OTHER, SELFPAY ==
[2024-07-20] VITALS (29 sets, daily range): BP systolic 102–143; BP diastolic 53–76; PULSE 71–98; RESP 14–25; TEMP 36.8–37.1; O2SAT 89–100; BMI 18.4
--- NOTE | 2024-07-20 09:32 | ECG_ITS ---
APPROVED REPORT Exam: Resting ECG HR:96 bpm ECG Measurements Heart Rate 96 AXES AL 116 P 83 QRSd 94 QRS 93 QT 385 T -71 QTc 439 Conclusion SINUS RHYTHM WITH SINUS ARRHYTHMIA WITH SHORT AL INTERVAL BORDERLINE RIGHT AXIS DEVIATION [QRS AXIS > 90] INCOMPLETE RIGHT BUNDLE BRANCH BLOCK [90+ ms QRS DURATION, TERMINAL R IN V1/V2, 40+ ms S IN I/aVL/V4/V5/V6] MARKED ST DEPRESSION, CONSIDER SUBENDOCARDIAL INJURY [0.2+ mV ST DEPRESSION] ACUTE [place] UNCONFIRMED REPORT Electronically signed by : Agustina Narvaez, 07/20/2024 17:00:58
--- NOTE | 2024-07-20 09:38 | PC.NURSE ---
DR SANDOVAL AT BEDSIDE
--- NOTE | 2024-07-20 09:39 | XR_ITS ---
FINAL REPORT CLINICAL HISTORY: Shortness of breath COMPARISON: 03/11/2024 FINDINGS: The lungs are hyperinflated. The heart size is normal. The mediastinum is normal. Lucency throughout both lungs is probably related to centrilobular emphysema. Scarring is noted in the upper and lower lobes. There are no pleural effusions. There is no pneumothorax. There is no osseous abnormality. IMPRESSION: Advanced changes of centrilobular emphysema. Allowing for differences of projection and inflation, there has been no change since the previous exam. Reviewed, Interpreted and Dictated by Ciaran Liu MD Transcribed by Luciana Mcdonough Authenticated and [facility]
[2024-07-20] MEDS: IPRATROPIUM/ALBUTEROL 3 ML NEB 9 ML IH (09:47)
[2024-07-20 09:48] LABS: Albumin Level 4.2 g/dl (3.5-5.0); Chloride 98 mmol/L (98-107); Sodium 134 mmol/L (136-145)
[2024-07-20 09:49] LABS: Potassium 4.6 mmoL/L (3.5-5.1)
[2024-07-20 09:51] LABS: Alanine Aminotransferase 18 U/L (12-78); Albumin/Globulin Ratio 1.4 (1.1-1.8); Alkaline Phosphatase 81 U/L (38-126); Anion Gap 7.6 mEq/L (5-15); Aspartate Amino Transferase 28 U/L (17-59); Bilirubin,Total 0.5 mg/dl (0.2-1.3); Blood Urea Nitrogen 29 mg/dl (9-20); Carbon Dioxide 33 mmol/L (22.0-30.0); Creatinine Clearance Estimated 49 mL/min (50-200); Estimated Glomerular Filt Rate 82 ml/min (>60); GFR (African American) 99 ML/MIN (>60); Lactate Venous 1.8 mmol/L (0.4-2.0); Total Protein,Serum 7.2 g/dl (6.3-8.2); VBG HCO3 31.1 mmol/L (23-30); VBG Oxygen Saturation 65.6 % (50-70); VBG PCO2 71.6 mmol/L (35-51); VBG PH 7.26 mmol/L (7.31-7.41); VBG PO2 38.4 mmol/L (28-40); VBG Total CO2 33.3 mmol/L (23-27)
--- NOTE | 2024-07-20 09:51 | PC.NURSE ---
RESPIRATORY NOTIFIED OF [facility]
[2024-07-20 09:52] LABS: Calcium 9.1 mg/dl (8.4-10.2); Glucose 117 mg/dl (74-100)
--- NOTE | 2024-07-20 09:52 | ED_ITS ---
Discharge Plan Disposition Chief Complaint: Shortness of Breath/Dyspnea Prescriptions Prescriptions: No Action tamsulosin 0.4 MG capsule 0.4 mg PO HS finasteride 5 MG tablet 5 mg PO HS apixaban 5 MG tablet 5 mg PO BID rosuvastatin 20 mg tablet 10 mg PO HS pantoprazole 40 mg Tablet,Delayed Release (Dr/Ec) 40 mg PO DAILY 30 Days Qty: 30 0RF Trelegy Ellipta 200-62.5-25 mcg Blister With Device 1 inh inhalation DAILY 30 Days Qty: 1 0RF albuterol sulfate 90 mcg/actuation HFA aerosol inhaler 2 puff inhalation Q4HP PRN (Reason: Shortness Of Breath) 30 Days Qty: 8.5 0RF prednisone 20 mg tablet 40 mg PO DAILY 3 Days Qty: 6 0RF metoprolol succinate 50 mg tablet extended release 24 hr 50 mg PO DAILY Patient Comments: TAKE ONE TABLET BY MOUTH ONCE A DAY FOR HYPERTENSION AND A. FIB Breztri Aerosphere 160-9-4.8 mcg/actuation HFA aerosol inhaler 2 puff INHALATION DAILY Patient Comments: INHALE 2 PUFFS BY MOUTH 2 TIMES A DAY Referrals Follow up/Referrals: Maribeth Mclean APRN [Primary Care Provider] - See instructions Print Language Print Language: Greek Discharge ED Provider: Agustina Narvaez HPI General Chief Complaint: Shortness of Breath/Dyspnea Stated Complaint: SOA Time Seen by Provider: 07/20/24 09:33 Mode of Arrival: EMS Source of Information: Patient and EMS Description of Symptoms (Recalled from ER Triage Doc. by RN): PT REPORTS INCREASED SHORTNESS OF BREATH, WORSE AT 0430 THIS AM. REPORTS COUGH. DENIES FEVER. REPORTS NASAL CONGESTION. PT BROUGHT VIA EMS, STATES PT O2 WAS 72% ON BASELINE 2/L. GIVEN DUO-NEB AND O2 INCREASED TO 4L/NC IN ROUTE History of Present Illness HPI narrative: Carroll Garcia is a 79 y/o male presenting with shortness of breath. Patient reports acute onset shortness of breath this morning at 4:30 AM. He states yesterday he felt fine. Patient chronically wears 2 L nasal cannula at home due to COPD. Patient smokes a few cigarettes per day. Patient's family at bedside states that he appeared to have chills without fever. Family member also reports having an upper respiratory infection recently. Patient does complain of nasal congestion. Patient denies chest pain, lightheadedness, nausea, vomiting, bowel or bladder dysfunction. Related Data Home Medications ?Medication ?Instructions ?Recorded ?Confirmed finasteride 5 mg tablet 5 mg PO HS 06/10/20 07/20/24 tamsulosin 0.4 mg capsule 0.4 mg PO HS 06/10/20 07/20/24 apixaban 5 mg tablet 5 mg PO BID atrial fib 07/24/22 07/20/24 rosuvastatin 20 mg tablet 10 mg PO HS 07/24/22 07/20/24 budesonide 160 mcg-glycopyr 9 2 puff inhalation DAILY 07/20/24 07/20/24 mcg-formot 4.8 mcg/actuation HFA inhaler (Breztri Aerosphere) metoprolol succinate 50 mg 50 mg PO DAILY 07/20/24 07/20/24 tablet,extended release 24 hr Previous Rx's ?Medication ?Instructions ?Recorded albuterol sulfate 90 mcg/actuation 2 puff inhalation Q4HP PRN 07/29/23 aerosol inhaler Shortness Of Breath 30 days #8.5 grams fluticasone fur. 200 mcg-umeclid 1 inh inhalation DAILY 30 days #1 07/29/23 62.5 mcg-vilant 25 mcg ea inhalat.powder (Trelegy Ellipta) pantoprazole 40 mg tablet,delayed 40 mg PO DAILY 30 days #30 tabs 07/29/23 release prednisone 20 mg tablet 40 mg (2 x 20 mg) PO DAILY 3 days 03/11/24 #6 tabs Allergies Allergy/AdvReac Type Severity Reaction Status Date / Time No Known Allergies Allergy Verified 07/20/24 10:18 [facility] Disclaimer: The information contained in this section may have been updated after the patient was seen, as this information can be updated by other users. Medical History Encounter for screening for malignant neoplasm of lung Alcohol withdrawal seizure Anemia Multiple lung nodules on CT COPD mixed type Smoking greater than 30 pack years Pulmonary emphysema Appendicitis History of prostate disorder GERD (gastroesophageal reflux disease) Hypertension Afib COPD (chronic obstructive pulmonary disease) Surgical History History of appendectomy Family History Other Family history of COPD (chronic obstructive pulmonary disease) Family history of hyperlipidemia Family history of hypertension Family history of myocardial infarction Social History Smoking Status: Current every day smoker tobacco type: cigarettes packs per day: 1 alcohol intake: former substance use type: denies use current occupational status: retired Travel in the last 8 weeks?: None Have you lived/traveled outside US in past 30 days?: No Contact w/someone who lives/traveled outside US past 30 days?: No Exposure to someone with infectious disease in past 14 days?: No Do you have a fever (greater than 100.4 F or 38 C)?: No Have you tested positive for COVID-19?: No Exposed to someone with COVID-19 in past 14 days?: No Do you have a sore throat?: No Do you have a cough?: No Do you have any weakness?: No Do you have any diarrhea?: No Are you experiencing any unusual bleeding?: No Do you have any muscle aches/pain?: No Do you have any abdominal pain?: No Are you experiencing loss of taste or smell?: No Other Medical History Have you received the Flu Vaccine for this season: No Have you received the Pneumonia Vaccine: No ROS Obtained: Yes All systems reviewed & no additional complaints except as documented Physical Exam General General appearance: alert and in no apparent distress Head Head exam: atraumatic, normocephalic and normal inspection Eye Eye exam: Present normal appearance, PERRL and EOMI ENT ENT exam: Present normal exam, normal oropharynx, mucous membranes moist and normal external ear exam Neck Neck exam: Present normal inspection, full ROM and trachea midline; Absent meningismus or lymphadenopathy Chest Chest inspection: Present normal inspection and symmetric chest wall rise; Absent tenderness Respiratory Respiratory exam: Present accessory muscle use and prolonged expiratory phase; Absent respiratory distress Cardiovascular Cardiovascular exam: Present regular rate and normal rhythm; Absent irregular rhythm or JVD Abdominal Exam Abdominal exam: Present soft; Absent distention, tenderness or guarding Extremities Exam Extremities exam: Present normal inspection, full ROM and normal capillary refill; Absent calf tenderness Neurological Exam Neurological exam: Present alert and oriented X3 Psychiatric Psychiatric exam: Present normal affect and normal mood Skin Skin exam: Present warm, dry, intact and normal color HEART Score HEART Score HEART Score assessment performed?: Yes History (anamnesis): Moderately suspicious ECG: Significant ST-deviation Age: >65 years Risk factors: 1-2 risk factors Troponin: </= normal limit HEART Score: 6 Critical Care Critical Care Time Critical Care Time: No Medical Decision Making Medical Records Medical records reviewed: Yes I reviewed the patient's medical records. Mitchell Inquiry Pt receiving controlled substance: No Vital Signs Vital Signs: 07/20/24 09:34 07/20/24 09:39 07/20/24 09:48 Temperature 98.4 F Temperature Source Temporal Artery Scan Pulse Rate 93 H 98 H Pulse Rate [Apical] 97 H Respiratory Rate 20 24 Blood Pressure 143/71 H Blood Pressure [Right Arm] 143/71 H Blood Pressure Mean 77 Blood Pressure Mean [Right Arm] 95 Blood Pressure Source [Right Arm] Automatic Cuff 02 Sat by Pulse Oximetry 89 L 92 L Oxygen Delivery Method Nasal Cannula Nasal Cannula Oxygen Flow Rate (LPM) 6 4 07/20/24 09:49 07/20/24 10:00 07/20/24 10:30 Temperature Temperature Source Pulse Rate 96 H 91 H Pulse Rate [Apical] Respiratory Rate 24 24 Blood Pressure 136/76 102/59 L Blood Pressure [Right Arm] Blood Pressure Mean 91 73 Blood Pressure Mean [Right Arm] Blood Pressure Source [Right Arm] 02 Sat by Pulse Oximetry 95 98 98 Oxygen Delivery Method Nasal Cannula Nasal Cannula BiPAP Oxygen Flow Rate (LPM) 4 4 07/20/24 11:00 Temperature Temperature Source Pulse Rate 93 H Pulse Rate [Apical] Respiratory Rate 20 Blood Pressure 103/53 L Blood Pressure [Right Arm] Blood Pressure Mean 69 Blood Pressure Mean [Right Arm] Blood Pressure Source [Right Arm] 02 Sat by Pulse Oximetry 95 Oxygen Delivery Method BiPAP Oxygen Flow Rate (LPM) Lab Data Lab results reviewed: Yes I reviewed the patient's lab results. Labs: Lab Results 07/20/24 09:30: WBC 16.2 H, RBC 4.47 L, Hgb 13.4 L, Hct 42.4, MCV 94.9 H, MCH 30.0, MCHC 31.6 L, RDW 13.2, Plt Count 263, MPV 9.9, Neut % (Auto) 85.8 H, Lymph % (Auto) 8.8 L, [place] % (Auto) 4.6, Eos % (Auto) 0.2, Baso % (Auto) 0.3, Neut # (Auto) 13.9 H, Lymph # (Auto) 1.4, [place] # (Auto) 0.7, Eos # (Auto) 0.0, Baso # (Auto) 0.1, VBG pH 7.26 L, VBG pCO2 71.6 H, VBG pO2 38.4, VBG HCO3 31.1 H, VBG Total CO2 33.3 H, VBG O2 Saturation 65.6, VBG Base Excess 4.0 H, VBG Lactic Acid 1.8, Sodium 134 L, Potassium 4.6, Chloride 98, Carbon Dioxide 33 H, Anion Gap 7.6, BUN 29 H, Creatinine 0.90, Estimated Creat Clear 49, Estimated GFR 82, Est GFR ( Amer) 99, Glucose 117 H, Calcium 9.1, Total Bilirubin 0.5, AST 28, ALT 18, Alkaline Phosphatase 81, Troponin I < 0.01, Total Protein 7.2, Albumin 4.2, Globulin 3.0, Albumin/Globulin Ratio 1.4, HCV Ab EFRAIN w/Rflx PCR Qn Negative, HIV Ag/Ab Combo Qual Negative 07/20/24 09:30 07/20/24 09:30 Response Orders (Tests/Meds): ED MEDICATIONS Generic Name Dose Route Start Last Admin Trade Name Freq PRN Reason Stop Dose Admin Ceftriaxone Sodium 2 gm/ 100 mls @ 200 mls/hr 07/20/24 11:15 07/20/24 11:41 Sodium Chloride IV 07/30/24 11:14 200 mls/hr Q24H DEVENDRA Administration Azithromycin 500 mg/ Sodium 250 mls @ 250 mls/hr 07/20/24 11:15 07/20/24 11:41 Chloride IV 07/30/24 11:14 250 mls/hr Q24H DEVENDRA Administration Discontinued Medications Generic Name Dose Route Start Last Admin Trade Name Freq PRN Reason Stop Dose Admin Albuterol/Ipratropium 9 ml 07/20/24 09:39 07/20/24 09:47 Ipratropium/Albuterol 3 Ml Neb IH 07/20/24 09:40 9 ml ONCE ONE Administration Aspirin 324 mg 07/20/24 10:00 07/20/24 10:06 Aspirin 81mg Chewable Tablet PO 07/20/24 10:01 324 mg ONCE ONE Administration Magnesium Sulfate 2 gm in 50 mls @ 50 mls/hr 07/20/24 10:05 07/20/24 10:06 Magnesium Sulfate 2gm/50ml Premix IV 07/20/24 11:04 50 mls/hr ONCE ONE Administration Iopamidol 70 ml 07/20/24 11:39 07/20/24 11:40 Iopamidol-370 (76%);100ml Bottle IV 07/20/24 11:40 70 ml ONCE ONE Administration Methylprednisolone Sodium Succinate 125 mg 07/20/24 09:39 07/20/24 10:06 Methylprednisolone Sod Succ 125mg Vial IV 07/20/24 09:40 125 mg ONCE ONE Administration Sodium Chloride 50 ml 07/20/24 11:39 07/20/24 11:40 0.9 % Sodium Chloride 50 Ml Vial IV 07/20/24 11:40 50 ml ONCE ONE Administration Sodium Chloride 10 ml 07/20/24 11:39 07/20/24 11:40 Sodium Chloride 0.9% 10ml Syr (Rad Only) IV 07/20/24 11:40 10 ml ONCE ONE Administration ORDERS Category Date Time Status CT angio chest PE protocol Stat Cat Scan 07/20/24 11:12 Taken CXR --portable [XR chest portable] Stat Exams 07/20/24 09:39 Completed POCUS Point of Care (ER Only) Stat Exams 07/20/24 09:36 Taken CBC w/Auto Diff [Complete Blood Count Auto Diff] Stat Lab 07/20/24 09:30 Completed CMP [Comprehensive Metabolic Panel] Stat Lab 07/20/24 09:30 Completed HIV Combo Stat Lab 07/20/24 09:30 Completed Hepatitis C Ab Qual. W/ RFX Stat Lab 07/20/24 09:30 Completed Troponin I Q3H Lab 07/20/24 13:00 Ordered Troponin I Q3H Lab 07/20/24 16:00 Ordered Troponin I Stat Lab 07/20/24 09:30 Completed Blood Culture Stat Micro 07/20/24 11:40 Received VBG [Venous Blood Gas] Stat RT 07/20/24 09:30 Completed MDM Narrative Medical Decision Narrative: In summary, this is a 79-year-old male presenting with shortness of breath. Differential diagnosis includes was not limited to, COPD exacerbation, pneumonia, ACS, PE, pneumothorax, sepsis, among others. Patient brought in by EMS on 6 L after receiving a DuoNeb for work of breathing and hypoxia. EMS reports saturations in the 70s on their arrival. Based on patient's history, will perform evaluation with CBC, CMP, VBG, troponin, EKG, CXR. Patient will initially be managed with Solu-Medrol and 3X DuoNeb. EKG interpretation notes ventricular rate of 96, no QTc prolongation, significant amount of artifact but depressions in 2, 3, V5, V6. Pt currently denies chest pain. Will repeat after DuoNeb's. Repeat EKG with sinus rhythm, rate of 89, no ST elevations or depressions, no evidence of acute ischemia. Slightly peaked T waves in V3, V4 and V5. Patient's laboratory evaluation significant for leukocytosis of 16.2, slight anemia with hemoglobin of 13.4, no thrombocytopenia. Initial troponin <0.01. VBG demonstrates acidosis with pH 7.26, PCO2 71.6, bicarb 31.1. Lactic acid 1.8. CMP with CO2 33, creatinine 0.90. CXR reviewed by me and demonstrates severe emphysematous changes bilaterally, no pleural effusions or cardiomegaly. In comparison to prior CXR, similar emphysematous changes with likely bleb on the right side. I performed a bedside ultrasound to further evaluate potential pneumothorax on right, which did not demonstrate absent lung sliding. This is further concerning for a large bleb over a pneumothorax. Patient was placed on BiPAP for work of breathing after DuoNebs. Patient's VBG compared to prior and his pCO2 is approximately 20 points higher than prior. Blood cultures drawn and antibiotics ordered. Patient had CT PE performed which was reviewed by me and demonstrates multiple large blebs on the right lung and multiple smaller blebs on the left lung. Upon return from CT scanner, patient kept on 4 L nasal cannula with significant improvement in work of breathing. Patient saturating approximately 94%. I discussed the patient with Dr. Us who has agreed to admit the patient for acute on chronic hypoxic and hypercapnic respiratory failure with sepsis. Agustina Narvaez MD
--- NOTE | 2024-07-20 09:53 | PC.NURSE ---
XR AT BEDSIDE
[2024-07-20 09:55] LABS: Basophils # 0.1 K/mm3 (0-0.2); Basophils % 0.3 % (0.1-2.0); Eosinophils % 0.2 % (0.1-12.0); Hematocrit 42.4 % (42.0-52.0); Hemoglobin 13.4 g/dL (14.1-18.0); Immature Granulocytes # 0.05 10^3uL; Immature Granulocytes % 0.3 %; Lymphocytes # 1.4 K/mm3 (0.7-4.5); Lymphocytes % 8.8 % (10-50); Mean Corpuscular HGB Conc 31.6 g/dL (31.8-35.4); Mean Corpuscular Volume 94.9 fl (80-94); Mean Platelet Volume 9.9 fl (7.4-10.4); Monocytes # 0.7 K/mm3 (0.1-1.0); Monocytes % 4.6 % (1.7-9.3); Neutrophils # 13.9 K/mm3 (1.8-7.8); Neutrophils % 85.8 % (37.0-80.0); Nucleated Red Blood Cells # 0 10^3/uL; Nucleated Red Blood Cells % 0 %; Platelet Count 263 K/mm3 (142-424); Red Blood Count 4.47 M/mm3 (4.60-6.20); Red Cell Distribution Width 13.2 % (11.5-17.5); Red Cell Distribution Width-SD 46.1 fL; White Blood Count 16.2 K/mm3 (4.8-10.8)
[2024-07-20] MEDS: METHYLPREDNISOLONE SOD SUCC 125MG VIAL 125 MG IV (10:06)
[2024-07-20] MEDS: ASPIRIN 81MG CHEWABLE TABLET 324 MG PO (10:06)
[2024-07-20] MEDS: MAGNESIUM SULFATE IN WATER 2 GM/50 ML PIGGYBACK IV (10:06)
--- NOTE | 2024-07-20 10:23 | PC.NURSE ---
RESPIRATORY AT BEDSIDE TO PLACE PT ON BI-PAP
[2024-07-20 10:40] LABS: Troponin I < 0.01 ng/ml (0.00-0.034)
[2024-07-20 10:42] LABS: HIV Combo NEGATIVE (Negative)
--- NOTE | 2024-07-20 10:46 | ECG_ITS ---
APPROVED REPORT Exam: Resting ECG HR:89 bpm ECG Measurements Heart Rate 89 AXES ID 121 P 88 QRSd 95 QRS 94 QT 407 T 83 QTc 454 Conclusion SINUS RHYTHM WITH OCCASIONAL ECTOPIC PREMATURE COMPLEXES BORDERLINE RIGHT AXIS DEVIATION [QRS AXIS > 90] SEPTAL MYOCARDIAL INFARCTION , OF INDETERMINATE AGE [40+ ms Q WAVE IN V1/V2] ABNORMAL ECG UNCONFIRMED REPORT Electronically signed by : Agustina Narvaez, 07/20/2024 17:00:47
[2024-07-20 10:49] LABS: Hepatitis C Ab Qual. W/ RFX NEGATIVE (Negative)
--- NOTE | 2024-07-20 10:52 | PC.NURSE ---
PT TOLERATING BI-PAP. NO NEEDS AT THIS TIME
--- NOTE | 2024-07-20 11:12 | CT_ITS ---
FINAL REPORT TECHNIQUE: The patient was injected with IV contrast. Axial images were obtained through the chest in a PE protocol. 3-D reconstruction images were also performed. Individualized dose reduction techniques using automated exposure control or adjustment of the MA and/or KV according to patient's size were employed. CLINICAL HISTORY: acute hypoxic respiratory failure COMPARISON: 07/27/2023 FINDINGS: Mediastinal vasculature is adequately opacified. No pulmonary artery filling defects are identified to suggest PE. There is no aortic dissection. There is no axillary adenopathy. There is no hilar or mediastinal adenopathy. The heart size is normal. There is no pericardial or pleural effusion. Limited images of the upper abdomen demonstrate dense vascular calcifications. A gallstone is present in the gallbladder. There are advanced changes of centrilobular emphysema with large biapical bulla, [id number]. Biapical pleural and parenchymal scarring is noted. 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 Patchy airspace opacity in the right lung base is new since the previous exam and may be related to acute pneumonia or aspiration. IMPRESSION: No pulmonary embolus. Marked severe changes of centrilobular emphysema. New airspace opacity right lung base, probable acute pneumonia or aspiration. Gallstone. Reviewed, Interpreted and Dictated by Ciaran Liu MD Transcribed by Luciana Mcdonough Authenticated and [facility]
--- NOTE | 2024-07-20 11:22 | PC.NURSE ---
PT TO CT
--- NOTE | 2024-07-20 11:35 | PC.NURSE ---
Pt back from CT
--- NOTE | 2024-07-20 11:36 | PC.NURSE ---
PT RETURNED FROM CT, [place] PER DR SANDOVAL TO PLACE PT BACK ON 4L/NC
[2024-07-20] MEDS: IOPAMIDOL-370 (76%);100ML BOTTLE 70 ML IV (11:40)
[2024-07-20] MEDS: 0.9 % SODIUM CHLORIDE 50 ML VIAL IV (11:40)
[2024-07-20] MEDS: SODIUM CHLORIDE 0.9% 10ML SYR (RAD ONLY) 10 ML IV (11:40)
[2024-07-20] MEDS: AZITHROMYCIN 500 MG in 0.9 % SODIUM CHLORIDE 250 ML 250 MG IV (11:41)
[2024-07-20] MEDS: CEFTRIAXONE SODIUM 2 GM in 0.9 % SODIUM CHLORIDE 100 ML IV (11:41)
--- NOTE | 2024-07-20 12:08 | PC.NURSE ---
DR SANDOVAL SPEAKING WITH HOSPITALIST
--- NOTE | 2024-07-20 12:09 | P.HP_ITS ---
History of Present Illness *Admission Date: 07/20/24 *Reason for visit:: Dyspnea, respiratory distress *History of present illness: Mr. 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 He presented to the ED with complaint of shortness of breath that worsened this morning at 430 acutely. Had a cough, mildly productive. Denies fever, nausea, vomiting. States that sometimes he has pain in the right side of his chest that he equates to lung pain . 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 On arrival to the ER patient was found to be hypoxic and hypercapnic. Normally wears 2 L oxygen, necessitated BiPAP placement. Chest imaging concerning initially possibly for pneumothorax, CT however shows significant bullous emphysema. Initial workup with tachypnea, white count of 16, consolidation right lower lobe concerning for pneumonia. Medicine consulted to admit for acute on chronic hypoxemic respiratory failure with hypercapnia meeting sepsis criteria. Pulmonology consulted to assist with management. On arrival to the unit, patient has shown some improvement with significant DuoNebs, steroids, magnesium. Responded well to BiPAP therapy. Has weaned to nasal cannula at this time but still requiring more than his baseline oxygen. Necessitating close monitoring due to acute episode of distress. Will continue to monitor stepdown level of care. Patient reports he continues to smoke several cigarettes a day. Previously smoked 1-1/2 packs a day or more for at least 60 years. [facility] Disclaimer: The information contained in this section may have been updated after the patient was seen, as this information can be updated by other users. Medical History Encounter for screening for malignant neoplasm of lung Alcohol withdrawal seizure Anemia Multiple lung nodules on CT COPD mixed type Smoking greater than 30 pack years Pulmonary emphysema Appendicitis History of prostate disorder GERD (gastroesophageal reflux disease) Hypertension Afib COPD (chronic obstructive pulmonary disease) Surgical History H/O foot surgery History of appendectomy Family History Other Family history of COPD (chronic obstructive pulmonary disease) Family history of hyperlipidemia Family history of hypertension Family history of myocardial infarction Social History Smoking Status: Current every day smoker tobacco type: cigarettes packs per day: 1 alcohol intake: former substance use type: denies use current occupational status: retired Travel in the last 8 weeks?: None Have you lived/traveled outside US in past 30 days?: No Contact w/someone who lives/traveled outside US past 30 days?: No Exposure to someone with infectious disease in past 14 days?: No Do you have a fever (greater than 100.4 F or 38 C)?: No Have you tested positive for COVID-19?: No Exposed to someone with COVID-19 in past 14 days?: No Do you have a sore throat?: No Do you have a cough?: No Do you have any weakness?: No Do you have any diarrhea?: No Are you experiencing any unusual bleeding?: No Do you have any muscle aches/pain?: No Do you have any abdominal pain?: No Are you experiencing loss of taste or smell?: No Other Medical History Have you received the Flu Vaccine for this season: No Have you received the Pneumonia Vaccine: No Review of Systems Review of Systems Review of systems (narrative): 14 point review of systems performed, pertinent positives and negatives as per HPI Meds Home Medications and Allergies Home Medications ?Medication ?Instructions ?Recorded ?Confirmed ?Type tamsulosin 0.4 mg capsule 0.4 mg PO BID 06/10/20 07/20/24 History apixaban 5 mg tablet 5 mg PO BID 07/24/22 07/20/24 History albuterol sulfate 90 mcg/actuation 2 puff inhalation Q4HP PRN 07/29/23 07/20/24 Rx aerosol inhaler Shortness Of Breath 30 days #8.5 grams pantoprazole 40 mg tablet,delayed 40 mg PO DAILY 30 days #30 tabs 07/29/23 07/20/24 Rx release budesonide 160 mcg-glycopyr 9 2 puff inhalation DAILY 07/20/24 07/20/24 History mcg-formot 4.8 mcg/actuation HFA inhaler (Breztri Aerosphere) famotidine 40 mg tablet 40 mg PO HS 07/20/24 07/20/24 History furosemide 20 mg tablet 20 mg PO DAILYP PRN fluid retention 07/20/24 07/20/24 History ipratropium 20 mcg-albuterol 100 1 puff inhalation QID 07/20/24 07/20/24 History mcg/actuation mist for inhalation (Combivent Respimat) magnesium oxide 400 mg (241.3 mg 400 mg PO BID 07/20/24 07/20/24 History magnesium) tablet metoprolol succinate 50 mg 50 mg PO DAILY 07/20/24 07/20/24 History tablet,extended release 24 hr prednisone 10 mg tablet 10 - 20 mg PO DAILY 07/20/24 07/20/24 History primidone 50 mg tablet 50 mg PO DAILY 07/20/24 07/20/24 History New Prescriptions to Start Prescriptions: Allergies Allergy/AdvReac Type Severity Reaction Status Date / Time No Known Allergies Allergy Verified 07/20/24 13:11 Exam Data for Last 24 hours Vital signs and Labs for Last 24 Hours: Temp Pulse Resp BP Pulse Ox O2 Del Method O2 Flow Rate 98.4 F 87 20 126/57 L 94 L Nasal Cannula 4 07/20/24 09:39 07/20/24 12:00 07/20/24 12:00 07/20/24 12:00 07/20/24 12:00 07/20/24 12:00 07/20/24 12:00 Laboratory Results - last 24 hr 07/20/24 09:30: WBC 16.2 H, RBC 4.47 L, Hgb 13.4 L, Hct 42.4, MCV 94.9 H, MCH 30.0, MCHC 31.6 L, RDW 13.2, Plt Count 263, MPV 9.9, Neut % (Auto) 85.8 H, Lymph % (Auto) 8.8 L, [place] % (Auto) 4.6, Eos % (Auto) 0.2, Baso % (Auto) 0.3, Neut # (Auto) 13.9 H, Lymph # (Auto) 1.4, [place] # (Auto) 0.7, Eos # (Auto) 0.0, Baso # (Auto) 0.1, VBG pH 7.26 L, VBG pCO2 71.6 H, VBG pO2 38.4, VBG HCO3 31.1 H, VBG Total CO2 33.3 H, VBG O2 Saturation 65.6, VBG Base Excess 4.0 H, VBG Lactic Acid 1.8, Sodium 134 L, Potassium 4.6, Chloride 98, Carbon Dioxide 33 H, Anion Gap 7.6, BUN 29 H, Creatinine 0.90, Estimated Creat Clear 49, Estimated GFR 82, Est GFR ( Amer) 99, Glucose 117 H, Calcium 9.1, Total Bilirubin 0.5, AST 28, ALT 18, Alkaline Phosphatase 81, Troponin I < 0.01, Total Protein 7.2, Albumin 4.2, Globulin 3.0, Albumin/Globulin Ratio 1.4, HCV Ab EFRAIN w/Rflx PCR Qn Negative, HIV Ag/Ab Combo Qual Negative I & O for Last 24 hours: Intake & Output 07/17/24 07/18/24 07/19/24 07/20/24 23:59 23:59 23:59 23:59 Weight 56.699 kg Constitutional Constitutional: moderate distress, cachectic, chronically ill appearing, disheveled and cooperative *Routine HEENT Exam Head: Present normocephalic and atraumatic Eye: Present EOMI and PERRL ENT: Present mucous membranes moist *Routine Neck Exam Neck: Present supple; Absent JVD or lymphadenopathy Routine Chest/Breast/Axilla Exam Comments: Barrel chested *Routine Respiratory Exam Respiratory: Present accessory muscle use, prolonged expiratory phase, rhonchi, wheezes, diminished air movement and symmetric chest movement *Routine Cardiovascular Exam Cardiovascular: Present RRR; Absent murmur or JVD *Routine Abdominal Exam Abdominal: Present soft and normoactive bowel sounds; Absent tenderness *Routine Rectal Exam Rectal:: deferred *Routine Genitalia Exam Genitalia:: deferred *Routine Extremities Exam Extremities: Present clubbing, full ROM and pulses intact; Absent edema Comments: Thin, sarcopenia *Routine Skin Exam Skin: Present intact and pallor; Absent rash *Routine Neurological Exam Neurological: Present alert, oriented X3, moving all extremities, vision grossly intact, hearing grossly intact and normal speech; Absent sensory deficit or motor deficit Routine Psychiatric Exam Psychiatric: Present normal affect, normal thought process, cooperative, good insight and good judgment Assessment and Plan *Assessment and plan (1) Acute and chronic respiratory failure with hypoxia: Status: Acute Category: Medical Code(s): J96.21 - Acute and chronic respiratory failure with hypoxia (2) Sepsis: Status: Acute Qualifiers: Acute respiratory failure type: with hypoxia Sepsis acute organ dysfunction status: with acute organ dysfunction Sepsis type: sepsis due to unspecified organism Severe sepsis acute organ dysfunction type: acute respiratory failure Severe sepsis shock status: without septic shock Qualified Code(s): A41.9 - Sepsis, unspecified organism; R65.20 - Severe sepsis without septic shock; J96.01 - Acute respiratory failure with hypoxia Category: Medical Code(s): A41.9 - Sepsis, unspecified organism (3) Stage 4 very severe COPD by GOLD classification: Status: Acute Category: Medical Code(s): J44.9 - Chronic obstructive pulmonary disease, unspecified (4) Afib: Status: Acute Category: Medical Code(s): I48.91 - Unspecified atrial fibrillation (5) Multiple lung nodules on CT: Status: Chronic Category: Medical Code(s): R91.8 - Other nonspecific abnormal finding of lung field (6) Smoking greater than 30 pack years: Status: Chronic Category: Social Hx Code(s): F17.210 - Nicotine dependence, cigarettes, uncomplicated (7) GERD (gastroesophageal reflux disease): Status: Acute Category: Medical Code(s): K21.9 - Gastro-esophageal reflux disease without esophagitis (8) Pulmonary cachexia due to COPD: Status: Acute Category: Medical Code(s): R64 - Cachexia; J44.9 - Chronic obstructive pulmonary disease, unspecified (9) Severe protein-calorie malnutrition: Status: Acute Category: Medical Code(s): E43 - Unspecified severe protein-calorie malnutrition (10) Acute exacerbation of chronic obstructive pulmonary disease: Status: Acute Category: Medical Code(s): J44.1 - Chronic obstructive pulmonary disease with (acute) exacerbation (11) Hypertension: Status: Chronic Category: Medical Code(s): I10 - Essential (primary) hypertension Plan 79-year-old male with stage IV Gold COPD. Presented with acute respiratory failure with hypoxia and hypercarbia. Suspect pneumonia based on imaging along with sepsis based on vital instability. Discussed case with ER physician, request admission for further management. I agreed to admit for further care. Will have pulmonology assist with care. Showing some response to treatment at this time. Continues to necessitate high level of care, will maintain in our stepdown unit. Problems addressed as follows: Acute on chronic hypoxemic respiratory failure with acute hypercapnia Right lower lobe pneumonia Gold stage IV severe COPD COPD exacerbation Bullous emphysema - Continue ceftriaxone 2 g daily and azithromycin 500 mg IV daily. Continue DuoNebs every 4 hours scheduled and budesonide twice daily - Received methylprednisolone 125 mg IV once in the ED. continue prednisone 40 mg daily - Pulmonology consulted, appreciate their recommendations and care. - Sputum and blood cultures pending - Goal sats greater 90%. Required BiPAP briefly in the ER due to hypercapnia. Responded briskly. Continues to require supplemental oxygen. Baseline 2 L at home. - Per my review of chest CT, has severely dilated bulla with his emphysematous changes and severe destruction of lungs. Has focal consolidation and density like appearance in right lower lung concerning for mass versus pneumonia. White count elevated at 16. - Repeat CBC, CMP, magnesium ordered for the morning. A-fib Hypertension - Can home Eliquis 5 mg twice daily, Lasix 20 mg daily, metoprolol succinate 50 mg daily BPH: Continue tamsulosin 0.4 mg twice daily Tremor: Continue primidone 50 mg daily Severe protein calorie malnutrition/pulmonary cachexia: Complicates all aspects of his care. High-protein supplementation. DNR Eliquis Regular diet
--- NOTE | 2024-07-20 12:20 | PC.NURSE ---
I notified HS of the need for an admission bed to the hospitalist
[2024-07-20 12:26] LABS: Coronavirus 19, PCR Not Detected (NotDetected); Influenza A, PCR Not Detected (NotDetected); Influenza B, PCR Not Detected (NotDetected)
--- NOTE | 2024-07-20 12:34 | P.CONS_ITS ---
History of Present Illness History of present illness: Mr. Garcia is a 79-year-old female current smoker greater than [id number] smoking history, COPD, chronic hypoxic respiratory failure, bullous emphysema presented to the ER with worsening respiratory distress and pulmonary was called for further evaluation and management. Patient admits relatively acute onset worsening respiratory symptoms. Admits subjective fevers and chills. Denies any worsening cough/productive phlegm PFSH PFSH Disclaimer: The information contained in this section may have been updated after the patient was seen, as this information can be updated by other users. Medical History (Updated 07/20/24 @ 15:31 by Kurt Us MD) Encounter for screening for malignant neoplasm of lung Alcohol withdrawal seizure Anemia Multiple lung nodules on CT COPD mixed type Smoking greater than 30 pack years Pulmonary emphysema Appendicitis History of prostate disorder GERD (gastroesophageal reflux disease) Hypertension Afib COPD (chronic obstructive pulmonary disease) Surgical History (Updated 07/20/24 @ 13:11 by Sheila Patel RN) H/O foot surgery History of appendectomy Family History Other Family history of COPD (chronic obstructive pulmonary disease) Family history of hyperlipidemia Family history of hypertension Family history of myocardial infarction Social History Smoking Status: Current every day smoker tobacco type: cigarettes packs per day: 1 alcohol intake: former substance use type: denies use current occupational status: retired Travel in the last 8 weeks?: None Have you lived/traveled outside US in past 30 days?: No Contact w/someone who lives/traveled outside US past 30 days?: No Exposure to someone with infectious disease in past 14 days?: No Do you have a fever (greater than 100.4 F or 38 C)?: No Have you tested positive for COVID-19?: No Exposed to someone with COVID-19 in past 14 days?: No Do you have a sore throat?: No Do you have a cough?: No Do you have any weakness?: No Do you have any diarrhea?: No Are you experiencing any unusual bleeding?: No Do you have any muscle aches/pain?: No Do you have any abdominal pain?: No Are you experiencing loss of taste or smell?: No Review of Systems Constitutional Constitutional: Reports anorexia, Reports body ache(s) and Reports fatigue Eyes Eyes: Denies eye discharge, Denies dry eyes, Denies irritation and Denies itchy eyes ENT Ears, Nose, Mouth, and Throat: Denies epistaxis, Denies facial pain, Denies lip swelling and Denies throat swelling *Cardiovascular Cardiovascular: Reports dyspnea and Reports dyspnea on exertion *Respiratory Respiratory: Denies change in phlegm color, Reports chest congestion, Reports cough, Reports dyspnea, Reports dyspnea on exertion, Denies excessive phlegm production, Denies hemoptysis, Denies pain on inspiration, Denies pain with cough and Reports wheezing *Gastrointestinal Gastrointestinal: Denies abdominal pain, Denies belching and Denies cramping *Musculoskeletal Musculoskeletal: Reports back pain, Reports myalgias and Reports other (No small joint swelling or Pain) Psychiatric Psychiatric: Denies homicidal ideation and Denies suicidal ideation Endocrine Endocrine: Reports fatigue and Denies heat intolerance Hematologic/Lymphatic Hematologic/Lymphatic: Denies easy bleeding and Denies lymphadenopathy Allergic/Immunologic Allergic/Immunologic: Denies itchy eyes, Denies lip swelling, Denies throat swelling and Reports wheezing Pulmonology Exam Inpatient Vital signs and Labs for Last 24 Hours: Temp Pulse Resp BP Pulse Ox O2 Del Method O2 Flow Rate 98.4 F 87 20 126/57 L 94 L Nasal Cannula 4 07/20/24 09:39 07/20/24 12:00 07/20/24 12:00 07/20/24 12:00 07/20/24 12:00 07/20/24 12:00 07/20/24 12:00 Laboratory Results - last 24 hr 07/20/24 09:30: WBC 16.2 H, RBC 4.47 L, Hgb 13.4 L, Hct 42.4, MCV 94.9 H, MCH 30.0, MCHC 31.6 L, RDW 13.2, Plt Count 263, MPV 9.9, Neut % (Auto) 85.8 H, Lymph % (Auto) 8.8 L, [place] % (Auto) 4.6, Eos % (Auto) 0.2, Baso % (Auto) 0.3, Neut # (Auto) 13.9 H, Lymph # (Auto) 1.4, [place] # (Auto) 0.7, Eos # (Auto) 0.0, Baso # (Auto) 0.1, VBG pH 7.26 L, VBG pCO2 71.6 H, VBG pO2 38.4, VBG HCO3 31.1 H, VBG Total CO2 33.3 H, VBG O2 Saturation 65.6, VBG Base Excess 4.0 H, VBG Lactic Acid 1.8, Sodium 134 L, Potassium 4.6, Chloride 98, Carbon Dioxide 33 H, Anion Gap 7.6, BUN 29 H, Creatinine 0.90, Estimated Creat Clear 49, Estimated GFR 82, Est GFR ( Amer) 99, Glucose 117 H, Calcium 9.1, Total Bilirubin 0.5, AST 28, ALT 18, Alkaline Phosphatase 81, Troponin I < 0.01, Total Protein 7.2, Albumin 4.2, Globulin 3.0, Albumin/Globulin Ratio 1.4, HCV Ab EFRAIN w/Rflx PCR Qn Negative, HIV Ag/Ab Combo Qual Negative I & O for Labs for Last 24 Hours: Intake & Output 07/17/24 07/18/24 07/19/24 07/20/24 23:59 23:59 23:59 23:59 Weight 125 lb Constitutional: Present moderate distress Head: Present normocephalic and atraumatic ENT: Present normal exam, normal oropharynx and mucous membranes moist Neck: Present normal inspection and full ROM Respiratory: Present respiratory distress, wheezes and able to speak in complete sentences; Absent crackles or diminished air movement Cardiac: Present S1/S2, Tachycardia and radial pulses present GI: Present soft and distention; Absent tenderness or guarding Skin: Present intact; Absent cyanosis or jaundice Neuro: Present alert, awake and oriented x 3 Extremities: Present normal inspection; Absent clubbing or cyanosis Psychiatric: Present normal affect and cooperative Meds Home Medications and Allergies Home Medications ?Medication ?Instructions ?Recorded ?Confirmed ?Type tamsulosin 0.4 mg capsule 0.4 mg PO BID 06/10/20 07/20/24 History apixaban 5 mg tablet 5 mg PO BID 07/24/22 07/20/24 History albuterol sulfate 90 mcg/actuation 2 puff inhalation Q4HP PRN 07/29/23 07/20/24 Rx aerosol inhaler Shortness Of Breath 30 days #8.5 grams pantoprazole 40 mg tablet,delayed 40 mg PO DAILY 30 days #30 tabs 07/29/23 07/20/24 Rx release budesonide 160 mcg-glycopyr 9 2 puff inhalation DAILY 07/20/24 07/20/24 History mcg-formot 4.8 mcg/actuation HFA inhaler (Breztri Aerosphere) famotidine 40 mg tablet 40 mg PO HS 07/20/24 07/20/24 History furosemide 20 mg tablet 20 mg PO DAILYP PRN fluid retention 07/20/24 07/20/24 History ipratropium 20 mcg-albuterol 100 1 puff inhalation QID 07/20/24 07/20/24 History mcg/actuation mist for inhalation (Combivent Respimat) magnesium oxide 400 mg (241.3 mg 400 mg PO BID 07/20/24 07/20/24 History magnesium) tablet metoprolol succinate 50 mg 50 mg PO DAILY 07/20/24 07/20/24 History tablet,extended release 24 hr prednisone 10 mg tablet 10 - 20 mg PO DAILY 07/20/24 07/20/24 History primidone 50 mg tablet 50 mg PO DAILY 07/20/24 07/20/24 History New Prescriptions to Start Prescriptions: Allergies Allergy/AdvReac Type Severity Reaction Status Date / Time No Known Allergies Allergy Verified 07/20/24 13:11 Results Laboratory Findings 07/20/24 09:30 07/20/24 09:30 Abnormal lab findings: Abnormal Labs 07/20/24 09:30 WBC 16.2 H RBC 4.47 L Hgb 13.4 L MCV 94.9 H MCHC 31.6 L Neut % (Auto) 85.8 H Lymph % (Auto) 8.8 L Neut # (Auto) 13.9 H VBG pH 7.26 L VBG pCO2 71.6 H VBG HCO3 31.1 H VBG Total CO2 33.3 H VBG Base Excess 4.0 H Sodium 134 L Carbon Dioxide 33 H BUN 29 H Glucose 117 H Assessment and Plan *Assessment and plan (1) Chronic obstructive pulmonary disease with acute exacerbation: Status: Acute Category: Medical Code(s): J44.1 - Chronic obstructive pulmonary disease with (acute) exacerbation (2) Pneumonia: Status: Resolved Qualifiers: Laterality: bilateral Lung location: unspecified part of lung P neumonia type: due to unspecified organism Qualified Code(s): J18.9 - Pneumonia, unspecified organism Category: Medical Code(s): J18.9 - Pneumonia, unspecified organism (3) COPD exacerbation: Status: Resolved Category: Medical Code(s): J44.1 - Chronic obstructive pulmonary disease with (acute) exacerbation Plan Mr. Garcia is a 79-year-old female current smoker greater than [id number] smoking history, COPD, chronic hypoxic respiratory failure, bullous emphysema presented to the ER with worsening respiratory distress and pulmonary was called for further evaluation and management. Patient admits relatively acute onset worsening respiratory symptoms. Admits subjective fevers and chills. Denies any worsening cough/productive phlegm Afebrile. Hemodynamically stable. Neutrophilic prominent leukocytosis. Blood gas upon admission venous showed hypercarbic respiratory failure with pH of 7.26 and a PCO2 of 71.6. COVID-19 and flu PCR panel negative. CTA upon admission with dense right lower lobe consolidative changes. No obvious central pulmonary embolism. Patient on examination no significant wheezing noted. Bilateral lower extremity edema, left greater than right. Subsequent VBG improved with resolution of hypercarbic respiratory failure. Plan: Continue oxygen supplementation to maintain O2 saturation goal of 90% and Continue ceftriaxone azithromycin pending sputum culture results Prednisone 40mg daily x 5 days Follow-up with sputum Gram stain culture sensitivities DuoNebs every 4 hours along with Pulmicort every 12 scheduled
--- NOTE | 2024-07-20 12:46 | PC.NURSE ---
REPORT GIVEN TO JOE MCKINNEY
--- NOTE | 2024-07-20 13:09 | PC.NURSE ---
Pt arrived to unit @ 1300
[2024-07-20 13:33] LABS: VBG HCO3 27.1 mmol/L (23-30); VBG Oxygen Saturation 66.3 % (50-70); VBG PCO2 54.4 mmol/L (35-51); VBG PH 7.32 mmol/L (7.31-7.41); VBG PO2 35.7 mmol/L (28-40); VBG Total CO2 28.8 mmol/L (23-27)
[2024-07-20 13:37] LABS: Lactate Venous 2.1 mmol/L (0.4-2.0)
[2024-07-20 14:04] LABS: Troponin I < 0.01 ng/ml (0.00-0.034)
--- NOTE | 2024-07-20 14:40 | PC.WOUNDNOTE ---
Anterior RFA Posterior RFA Medial RFA R Foot
[2024-07-20 17:09] LABS: Troponin I < 0.01 ng/ml (0.00-0.034)
[2024-07-20] MEDS: IPRATROPIUM/ALBUTEROL 3 ML NEB IH ×3 (17:30→22:58)
[2024-07-20] MEDS: BUDESONIDE 0.5MG/2ML NEB 0.5 MG IH (17:30)
[2024-07-20 17:36] LABS: Reflex Lactic Add Lactic Reflex
[2024-07-20 17:54] LABS: Lactic Acid Follow Up (RFLX 1) 1.9 mmol/L (0.7-2.1)
--- NOTE | 2024-07-20 18:47 | PC.NURSE ---
New admit this shift. A/Ox4. O2 weaned to baseline 2 L NC, sat mid 90's. Pt did desat to low 80's when standing to urinate w/ staff at bedside. During this time pt reported feeling increased SOA and was assisted back to bed. O2 increased back to 4 L and pt recovered to mid 90's shortly after. O2 has since been decreased back to 2L @ rest. No further complaints voiced. Pt currently resting in bed watching tv. Call luo w/in reach. Bed alarm in place. Seizure pads per protocol. No needs @ this time. POC ongoing.
--- NOTE | 2024-07-20 20:03 | PC.NURSE ---
pt c/o SOA. O2 sat 91%. LS very diminished. No nedbs scheduled at this time. No PRN's. Laura Neil APRN notified. RT called and at BS for PRN Cecily
[2024-07-20] MEDS: APIXABAN 5MG TABLET 5 MG PO (20:39)
[2024-07-20] MEDS: FAMOTIDINE 20MG TABLET 40 MG PO (20:39)
[2024-07-20] MEDS: TAMSULOSIN 0.4MG CAPSULE 0.4 MG PO (20:39)
[2024-07-21] VITALS (21 sets, daily range): BP systolic 119–163; BP diastolic 57–93; PULSE 71–97; RESP 14–25; TEMP 36.5–36.9; O2SAT 91–98; BMI 18.6
[2024-07-21] MEDS: IPRATROPIUM/ALBUTEROL 3 ML NEB IH ×6 (01:49→21:45)
--- NOTE | 2024-07-21 02:11 | PC.NURSE ---
blood noted to be coming from pts penis and IV in LFA. Laura Neil APRN notified, labs being ordered. Called lab at this time.
[2024-07-21 02:20] LABS: Basophils % 0.1 % (0.1-2.0); Hematocrit 37.3 % (42.0-52.0); Immature Granulocytes # 0.12 10^3uL; Immature Granulocytes % 0.7 %; Lymphocytes # 0.6 K/mm3 (0.7-4.5); Lymphocytes % 3.4 % (10-50); Mean Corpuscular HGB Conc 32.2 g/dL (31.8-35.4); Mean Corpuscular Hemoglobin 30.1 pg (27.0-31.2); Mean Corpuscular Volume 93.5 fl (80-94); Mean Platelet Volume 9.7 fl (7.4-10.4); Monocytes # 0.5 K/mm3 (0.1-1.0); Monocytes % 3.1 % (1.7-9.3); Neutrophils # 14.9 K/mm3 (1.8-7.8); Neutrophils % 92.7 % (37.0-80.0); Nucleated Red Blood Cells # 0 10^3/uL; Nucleated Red Blood Cells % 0 %; Platelet Count 222 K/mm3 (142-424); Red Blood Count 3.99 M/mm3 (4.60-6.20); Red Cell Distribution Width 13.4 % (11.5-17.5); Red Cell Distribution Width-SD 45.7 fL; White Blood Count 16.1 K/mm3 (4.8-10.8)
[2024-07-21 02:33] LABS: Hemoglobin 12.2 g/dL (14.1-18.0)
[2024-07-21 02:38] LABS: D-Dimer 0.49 ug/mL (0.0-0.5)
[2024-07-21 03:01] LABS: INR 0.99 (0.9-1.1)
[2024-07-21 03:06] LABS: PTT Heparin (inpatient only) 29.3 Seconds (50-75)
[2024-07-21 03:08] LABS: Microscopic, Urine URINE MICROSCOPIC (MICROSCOPIC)
[2024-07-21 03:09] LABS: Appearance,Urine CLEAR (Clear); Bilirubin,Urine Negative (Negative); Blood, Urine 2+ (Negative); Color,Urine YELLOW (Yellow); Glucose,Urine (UA) Negative (Negative); Ketones,Urine Negative (Negative); Leukocyte Esterase,Urine Negative (Negative); Nitrate,Urine Negative (Negative); Protein,Urine Negative (Negative); Specific Gravity, Urine 1.015 (1.005-1.030); Urobilinogen,Urine 0.2 EU/dl (0.2)
[2024-07-21 03:13] LABS: Bacteria,Urine 2+ /lpf; RBC,Urine 20-50 #/hpf (0-3)
[2024-07-21 03:15] LABS: Fibrinogen 415 mg/dL (229.9-363.5)
--- NOTE | 2024-07-21 05:23 | PC.NURSE ---
Pt remains on 2L NC. See previous notes for events this shift. VSS. Call light in reach.
[2024-07-21 06:00] LABS: Basophils % 0.1 % (0.1-2.0); Hematocrit 33.6 % (42.0-52.0); Hemoglobin 11.1 g/dL (14.1-18.0); Immature Granulocytes # 0.13 10^3uL; Immature Granulocytes % 0.8 %; Lymphocytes # 0.3 K/mm3 (0.7-4.5); Lymphocytes % 1.9 % (10-50); Mean Corpuscular Hemoglobin 30.7 pg (27.0-31.2); Mean Corpuscular Volume 92.8 fl (80-94); Monocytes # 0.9 K/mm3 (0.1-1.0); Monocytes % 5.4 % (1.7-9.3); Neutrophils # 15.2 K/mm3 (1.8-7.8); Neutrophils % 91.8 % (37.0-80.0); Nucleated Red Blood Cells # 0 10^3/uL; Nucleated Red Blood Cells % 0 %; Platelet Count 223 K/mm3 (142-424); Red Blood Count 3.62 M/mm3 (4.60-6.20); Red Cell Distribution Width 13.3 % (11.5-17.5); Red Cell Distribution Width-SD 45.9 fL; White Blood Count 16.6 K/mm3 (4.8-10.8)
[2024-07-21 06:03] LABS: MANUAL DIFFERENTIAL MANUAL DIFFERENTIAL (MANUAL DIFF)
[2024-07-21] MEDS: HYDROCODONE/APAP 5/325 MG TABLET 1 TAB PO (06:07)
[2024-07-21] MEDS: BUDESONIDE 0.5MG/2ML NEB 0.5 MG IH ×2 (06:09→18:47)
[2024-07-21 06:21] LABS: Alanine Aminotransferase 17 U/L (12-78); Albumin Level 3.4 g/dl (3.5-5.0); Albumin/Globulin Ratio 1.2 (1.1-1.8); Alkaline Phosphatase 67 U/L (38-126); Anion Gap 5.9 mEq/L (5-15); Aspartate Amino Transferase 20 U/L (17-59); Bilirubin,Total 0.6 mg/dl (0.2-1.3); Blood Urea Nitrogen 29 mg/dl (9-20); Calcium 8.7 mg/dl (8.4-10.2); Carbon Dioxide 33 mmol/L (22.0-30.0); Chloride 100 mmol/L (98-107); Creatinine Clearance Estimated 49 mL/min (50-200); Estimated Glomerular Filt Rate 72 ml/min (>60); GFR (African American) 87 ML/MIN (>60); Globulin 2.8 g/dL (1.3-3.2); Glucose 133 mg/dl (74-100); Magnesium 2.2 mg/dl (1.6-2.3); Potassium 4.9 mmoL/L (3.5-5.1); Sodium 134 mmol/L (136-145); Total Protein,Serum 6.2 g/dl (6.3-8.2)
[2024-07-21 06:28] LABS: Lymphocytes % 8 % (10-50); Neutrophils % 91 % (42-76); Platelet Estimate Normal; Total Cells Counted 100
[2024-07-21 06:29] LABS: Ovalocytes 1+
--- NOTE | 2024-07-21 07:10 | PC.NURSE ---
Pt reports feeling like he needs to void after voiding 100ml. bladder feels distended. bladder scan showed >446ml. insert díaz per J Rashaad DEPARTMENT SECRETARY. 3-way Díaz 16 Fr inserted for irrigation d/t blood noted at penis and in urine.
[2024-07-21] MEDS: predniSONE 20MG TAB 40 MG PO (09:12)
[2024-07-21] MEDS: METOPROLOL SUCCINATE XL 50MG TABLET 50 MG PO (09:13)
[2024-07-21] MEDS: PANTOPRAZOLE 40MG TABLET 40 MG PO (09:13)
[2024-07-21] MEDS: APIXABAN 5MG TABLET 5 MG PO ×2 (09:13→21:14)
[2024-07-21] MEDS: PRIMIDONE 50MG TABLET 50 MG PO (09:13)
[2024-07-21] MEDS: TAMSULOSIN 0.4MG CAPSULE 0.4 MG PO ×2 (09:13→21:14)
[2024-07-21] MEDS: FUROSEMIDE 20MG TABLET 20 MG PO (09:13)
--- NOTE | 2024-07-21 09:32 | PC.NURSE ---
Family called & updated on POC
--- NOTE | 2024-07-21 10:29 | HMH.PTEV ---
Physical Therapy Evaluation Rehab PT IP Evaluation Start: 07/21/24 09:22 Freq: ONCE Status: Active Protocol: Document 07/21/24 10:21 CHAPIN (Rec: 07/21/24 10:29 PHOSHIRA [id number]) Subjective/History History History 79-year-old male with emphysema, A-fib, pulmonary cachexia on chronic oxygen therapy. He presented to the ED with complaint of shortness of breath that worsened this morning at 430 acutely. Had a cough, mildly productive. Denies fever, nausea, vomiting . States that sometimes he has pain in the right side of his chest that he equates to lung pain . 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 On arrival to the ER patient was found to be hypoxic and hypercapnic. Normally wears 2 L oxygen, necessitated BiPAP placement. Chest imaging concerning initially possibly for pneumothorax, CT however shows significant bullous emphysema . Initial workup with tachypnea, white count of 16, consolidation right lower lobe concerning for pneumonia. Medicine consulted to admit for acute on chronic hypoxemic respiratory failure with hypercapnia meeting sepsis criteria. Pulmonology consulted to assist with management. Subjective Subjective Pt reports he lives alone, 2 [address] the home, and he is generally independent with all mobility at home, although only walking 5-10 ft at most for baseline. He reports, I just can't get my breath, it takes me forever to do anything. He is only 2 L/min [place] O2 at this time which is his baseline at home. [facility] How much help from another person do you currently need... Turning from your back to your side None while in a flat bed without using bedrails? Moving from lying on back to sitting on None the side of a flat bed without using bedrails? Moving to and from a bed to a chair ( None including a wheelchair)? Standing up from a chair using your arms None ? (e.g., wheelchair, bedside chair) Walking in hospital room? A little Climbing 3-5 steps with a railing? A little Mobility Score 22 Mobility Level [facility] Mobility Calculator Mobility 7 Walk 25 feet or more Rehab PT IP Eval Objective Appearance Patient Behavior Appropriate Patient Orientation Person,Place,Time Difficulty following instructions none Speech Pattern Clear Ambulation Patient Able to Ambulate No Balance Ability to Arise Able, uses arms to help Sitting Balance Steady, safe Standing Balance Steady, wide stance Dynamic Sitting Balance Ability Good Dynamic Standing Balance Ability Good Transfers Bed Transfer Ability Independent Chair Transfer Ability Independent Sit to Stand Bed Transfer Ability Supervision/Stand by Sit to Stand Chair Transfer Ability Supervision/Stand by ROM All Extremities PT ROM Status WFL MMT All Extremities PT MMT WFL Rehab PT IP prob,goals,plan Problems Date of Evaluation: 07/21/24 PT IP Problems Transfers,Gait Rehab Potential Rehab Potential Good Plan PT Intervention Plan Transfers,Gait,Therapeutic Exercise PT Plan Frequency Daily Duration LOS Discharge Goals Sit to Stand Chair Transfer Ability Independent Ambulation Assistive Device Rolling Walker Ambulation Distance (feet) 10 Discharge Plan PT Discharge Plan Pt is most appropriate at this time for rehab placement once medically stable, however, if he has 24/hr assistance available he may be able to return home once medically stable. Skilled therapy remains indicated to improve general mobility and ambulation in order to aid pt return to [facility]. Eval Complexity Eval Charge Codes 15320 - High Complexity PHYSICIAN CERTIFICATION: I certify the specified therapy services for Carroll Garcia are required, authorized, and reviewed every 30 days.
--- NOTE | 2024-07-21 10:31 | HMH.PTWOUND ---
Rehab Inpt Wound Evaluation Rehab IP Wound Evaluation Start: 07/20/24 14:13 Freq: ONCE Status: Active Protocol: Document 07/21/24 10:29 CHAPIN (Rec: 07/21/24 10:31 CHAPIN [id number]) Rehab PT Wound Assessment Subjective Subjective 79-year-old male with emphysema, A-fib, pulmonary cachexia on chronic oxygen therapy. He presented to the ED with complaint of shortness of breath that worsened this morning at 430 acutely. Had a cough, mildly productive. Denies fever, nausea, vomiting . States that sometimes he has pain in the right side of his chest that he equates to lung pain . 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 On arrival to the ER patient was found to be hypoxic and hypercapnic. Normally wears 2 L oxygen, necessitated BiPAP placement. Chest imaging concerning initially possibly for pneumothorax, CT however shows significant bullous emphysema . Initial workup with tachypnea, white count of 16, consolidation right lower lobe concerning for pneumonia. Medicine consulted to admit for acute on chronic hypoxemic respiratory failure with hypercapnia meeting sepsis criteria. Pulmonology consulted to assist with management. He presented upon admission with several skin tears to the R forearm area which [facility] staff is dressing appropriately. No current need for debridement at this time. Plan/Recommendation Comment Continue dressing changes per nsg staff as appropriate. No current need for acute inpatient wound debridement. PHYSICIAN CERTIFICATION: I certify the specified therapy services for Carroll Garcia are required, authorized, and reviewed every 30 days.
[2024-07-21] MEDS: CEFTRIAXONE SODIUM 2 GM in 0.9 % SODIUM CHLORIDE 100 ML IV (11:09)
[2024-07-21] MEDS: AZITHROMYCIN 500 MG in 0.9 % SODIUM CHLORIDE 250 ML 250 MG IV (11:42)
--- NOTE | 2024-07-21 12:49 | EXP.PULM.PN ---
Subjective *Date: 07/21/24 *Time: 12:49 Interval history: No acute respiratory vents overnight. Patient admits improving respiratory symptoms. Complains of hematuria Pulmonology Exam Inpatient Vital signs and Labs for Last 24 Hours: Temp Pulse Resp BP Pulse Ox O2 Del Method O2 Flow Rate 98.1 F 90 21 134/73 95 Nasal Cannula 2.5 07/21/24 12:00 07/21/24 12:00 07/21/24 12:00 07/21/24 12:00 07/21/24 12:00 07/21/24 12:00 07/21/24 12:00 FiO2 40 07/20/24 10:20 Laboratory Results - last 24 hr 07/20/24 09:30: SARS-CoV-2 (PCR) Not detected, Influenza A Untype (PCR) Not detected, Influenza Type B (PCR) Not detected 07/20/24 13:23: VBG pH 7.32, VBG pCO2 54.4 H, VBG pO2 35.7, VBG HCO3 27.1, VBG Total CO2 28.8 H, VBG O2 Saturation 66.3, VBG Base Excess 1.0, VBG Lactic Acid 2.1 H, Troponin I < 0.01 07/20/24 16:15: Lactate 1.9, Troponin I < 0.01 07/21/24 02:15: WBC 16.1 H, RBC 3.99 L, Hgb 12.2 L, Hct 37.3 L, MCV 93.5, MCH 30.1, MCHC 32.2, RDW 13.4, Plt Count 222, MPV 9.7, Neut % (Auto) 92.7 H, Lymph % (Auto) 3.4 L, [place] % (Auto) 3.1, Eos % (Auto) 0.0 L, Baso % (Auto) 0.1, Neut # (Auto) 14.9 H, Lymph # (Auto) 0.6 L, [place] # (Auto) 0.5, Eos # (Auto) 0.0, Baso # (Auto) 0.0, PT 11.0, INR 0.99, APTT 29.3 L, Fibrinogen 415 H, D-Dimer 0.49 07/21/24 02:44: Urine Color Yellow, Urine Appearance Clear, Urine pH 6.0, Ur Specific [place] 1.015, Urine Protein Negative, Urine Glucose (UA) Negative, Urine Ketones Negative, Urine Blood 2+ A, Urine Nitrate Negative, Urine Bilirubin Negative, Urine Urobilinogen 0.2, Ur Leukocyte Esterase Negative, Urine RBC 20-50, Urine WBC 3-5, Urine Bacteria 2+ 07/21/24 05:22: WBC 16.6 H, RBC 3.62 L, Hgb 11.1 L, Hct 33.6 L, MCV 92.8, MCH 30.7, MCHC 33.0, RDW 13.3, Plt Count 223, MPV 10.0, Neut % (Auto) 91.8 H, Lymph % (Auto) 1.9 L, [place] % (Auto) 5.4, Eos % (Auto) 0.0 L, Baso % (Auto) 0.1, Neut # (Auto) 15.2 H, Lymph # (Auto) 0.3 L, [place] # (Auto) 0.9, Eos # (Auto) 0.0, Baso # (Auto) 0.0, Total Counted 100, Neutrophils % (Manual) 91 H, Lymphocytes % (Manual) 8 L, Basophils % (Manual) 1.0, Platelet Estimate Normal, Ovalocytes 1+, Sodium 134 L, Potassium 4.9, Chloride 100, Carbon Dioxide 33 H, Anion Gap 5.9, BUN 29 H, Creatinine 1.00, Estimated Creat Clear 49, Estimated GFR 72, Est GFR ( Amer) 87, Glucose 133 H, Calcium 8.7, Magnesium 2.2, Total Bilirubin 0.6, AST 20 D, ALT 17, Alkaline Phosphatase 67, Total Protein 6.2 L, Albumin 3.4 L D, Globulin 2.8, Albumin/Globulin Ratio 1.2 Temp Pulse Resp BP Pulse Ox O2 Del Method O2 Flow Rate 98.4 F 87 20 126/57 L 94 L Nasal Cannula 4 07/20/24 09:39 07/20/24 12:00 07/20/24 12:00 07/20/24 12:00 07/20/24 12:00 07/20/24 12:00 07/20/24 12:00 Laboratory Results - last 24 hr 07/20/24 09:30: WBC 16.2 H, RBC 4.47 L, Hgb 13.4 L, Hct 42.4, MCV 94.9 H, MCH 30.0, MCHC 31.6 L, RDW 13.2, Plt Count 263, MPV 9.9, Neut % (Auto) 85.8 H, Lymph % (Auto) 8.8 L, [place] % (Auto) 4.6, Eos % (Auto) 0.2, Baso % (Auto) 0.3, Neut # (Auto) 13.9 H, Lymph # (Auto) 1.4, [place] # (Auto) 0.7, Eos # (Auto) 0.0, Baso # (Auto) 0.1, VBG pH 7.26 L, VBG pCO2 71.6 H, VBG pO2 38.4, VBG HCO3 31.1 H, VBG Total CO2 33.3 H, VBG O2 Saturation 65.6, VBG Base Excess 4.0 H, VBG Lactic Acid 1.8, Sodium 134 L, Potassium 4.6, Chloride 98, Carbon Dioxide 33 H, Anion Gap 7.6, BUN 29 H, Creatinine 0.90, Estimated Creat Clear 49, Estimated GFR 82, Est GFR ( Amer) 99, Glucose 117 H, Calcium 9.1, Total Bilirubin 0.5, AST 28, ALT 18, Alkaline Phosphatase 81, Troponin I < 0.01, Total Protein 7.2, Albumin 4.2, Globulin 3.0, Albumin/Globulin Ratio 1.4, HCV Ab EFRAIN w/Rflx PCR Qn Negative, HIV Ag/Ab Combo Qual Negative I & O for Labs for Last 24 Hours: Intake & Output 07/18/24 07/19/24 07/20/24 07/21/24 23:59 23:59 23:59 23:59 Intake Total 240 / 240 560 / 560 Output Total 500 / 500 900 / 900 Balance -260 / -260 -340 / -340 Weight 125 lb 126 lb 1.6 oz Intake & Output 07/17/24 07/18/24 07/19/24 07/20/24 23:59 23:59 23:59 23:59 Weight 125 lb Microbiology Reports for the Last 24 Hours: Microbiology 07/20/24 11:40 Blood Blood Culture - Preliminary NO GROWTH AFTER 24 HOURS 07/20/24 09:34 Blood Blood Culture - Preliminary NO GROWTH AFTER 24 HOURS 07/20/24 14:50 Sputum - Expectorated Sputum Gram Stain - Final Constitutional: Present moderate distress Head: Present normocephalic and atraumatic ENT: Present normal exam, normal oropharynx and mucous membranes moist Neck: Present normal inspection and full ROM Respiratory: Present respiratory distress, wheezes and able to speak in complete sentences; Absent crackles or diminished air movement Cardiac: Present S1/S2, Tachycardia and radial pulses present GI: Present soft and distention; Absent tenderness or guarding Skin: Present intact; Absent cyanosis or jaundice Neuro: Present alert, awake and oriented x 3 Extremities: Present normal inspection; Absent clubbing or cyanosis Psychiatric: Present normal affect and cooperative Assessment and Plan *Assessment and plan (1) Chronic obstructive pulmonary disease with acute exacerbation: Status: Acute Category: Medical Code(s): J44.1 - Chronic obstructive pulmonary disease with (acute) exacerbation (2) Pneumonia: Status: Resolved Qualifiers: Laterality: bilateral Lung location: unspecified part of lung Pneumonia type: due to unspecified organism Qualified Code(s): J18.9 - Pneumonia, unspecified organism Category: Medical Code(s): J18.9 - Pneumonia, unspecified organism (3) COPD exacerbation: Status: Resolved Category: Medical Code(s): J44.1 - Chronic obstructive pulmonary disease with (acute) exacerbation Plan Mr. Garcia is a 79-year-old female current smoker greater than [id number] smoking history, COPD, chronic hypoxic respiratory failure, bullous emphysema presented to the ER with worsening respiratory distress and pulmonary was called for further evaluation and management. Patient admits relatively acute onset worsening respiratory symptoms. Admits subjective fevers and chills. Denies any worsening cough/productive phlegm Afebrile. Hemodynamically stable. Neutrophilic prominent leukocytosis. Blood gas upon admission venous showed hypercarbic respiratory failure with pH of 7.26 and a PCO2 of 71.6. COVID-19 and flu PCR panel negative. CTA upon admission with dense right lower lobe consolidative changes. No obvious central pulmonary embolism. Patient on examination no significant wheezing noted. Bilateral lower extremity edema, left greater than right. Subsequent VBG improved with resolution of hypercarbic respiratory failure. Interval update: No acute respiratory vents overnight. Stable performance, return to home baseline 2 to 3 L. No significant wheezing noted on auscultation. Continue to receive antibiotic steroids and nebulization therapies. Pending sputum culture results Plan: Continue oxygen supplementation to maintain O2 saturation goal of 90% and Continue ceftriaxone azithromycin pending sputum culture results Prednisone 40mg daily x 5 days Follow-up with sputum Gram stain culture sensitivities DuoNebs every 4 hours along with Pulmicort every 12 scheduled
--- NOTE | 2024-07-21 13:36 | SW/DCPLANNER ---
Addendum entered by [facility] 07/23/24 09:49: Per Claudia gonzalez [facility] patient has been accepted for services. Addendum entered by [facility] 07/23/24 08:52: Patient information/order will be faxed to [facility]. Patient will discharge home today. Addendum entered by [facility] 07/23/24 08:25: Patient continues to refuse placement at this time. Patient prefers to return home w/ home health services. Patient also stated that he has all appropriate DME at home. I will inform [facility] of this plan. Discharge date is unknown at this time. I will continue to follow up. Addendum entered by [facility] 07/22/24 12:43: Patient is still undecided regarding placement at this time. I will continue to follow up. Per MD patient could be ready for discharge tomorrow pending no setbacks. Addendum entered by [facility] 07/21/24 16:12: [facility], [facility] and [facility] are all willing to accept this patient. I will continue to follow up w/ artie, MD and facilities. Original Note: I spoke w/ this patient and his POA (Tanvi) regarding plans once medically stable for discharge. PT/OT evaluated patient and recommended SNF level of care at time of discharge. Patient stated that he does not feel that he will need placement once ready to leave hospital. Patient is agreeable for information to be faxed to [facility] (preferred facility), [facility] and [facility] to review patient information. I will continue to follow up w/ patient and POA regarding discharge planning. Discharge date is unknown at this time.
--- NOTE | 2024-07-21 18:53 | P.PN_ITS ---
Subjective *Date: 07/21/24 *Time: 18:53 Interval history: Doing better this morning, weaned to baseline 2 L. Continues to have significant wheezing. Continue breathing treatments, steroids. Exam Data for Last 24 hours Vital signs and Labs for Last 24 Hours: Temp Pulse Resp BP Pulse Ox O2 Del Method O2 Flow Rate 98.5 F 82 17 148/76 H 94 L Nasal Cannula 2 07/21/24 16:00 07/21/24 18:47 07/21/24 16:00 07/21/24 16:00 07/21/24 18:47 07/21/24 18:47 07/21/24 18:47 FiO2 40 07/20/24 10:20 Laboratory Results - last 24 hr 07/21/24 02:15: WBC 16.1 H, RBC 3.99 L, Hgb 12.2 L, Hct 37.3 L, MCV 93.5, MCH 30.1, MCHC 32.2, RDW 13.4, Plt Count 222, MPV 9.7, Neut % (Auto) 92.7 H, Lymph % (Auto) 3.4 L, [place] % (Auto) 3.1, Eos % (Auto) 0.0 L, Baso % (Auto) 0.1, Neut # (Auto) 14.9 H, Lymph # (Auto) 0.6 L, [place] # (Auto) 0.5, Eos # (Auto) 0.0, Baso # (Auto) 0.0, PT 11.0, INR 0.99, APTT 29.3 L, Fibrinogen 415 H, D-Dimer 0.49 07/21/24 02:44: Urine Color Yellow, Urine Appearance Clear, Urine pH 6.0, Ur Specific [place] 1.015, Urine Protein Negative, Urine Glucose (UA) Negative, Urine Ketones Negative, Urine Blood 2+ A, Urine Nitrate Negative, Urine Bilirubin Negative, Urine Urobilinogen 0.2, Ur Leukocyte Esterase Negative, Urine RBC 20-50, Urine WBC 3-5, Urine Bacteria 2+ 07/21/24 05:22: WBC 16.6 H, RBC 3.62 L, Hgb 11.1 L, Hct 33.6 L, MCV 92.8, MCH 30.7, MCHC 33.0, RDW 13.3, Plt Count 223, MPV 10.0, Neut % (Auto) 91.8 H, Lymph % (Auto) 1.9 L, [place] % (Auto) 5.4, Eos % (Auto) 0.0 L, Baso % (Auto) 0.1, Neut # (Auto) 15.2 H, Lymph # (Auto) 0.3 L, [place] # (Auto) 0.9, Eos # (Auto) 0.0, Baso # (Auto) 0.0, Total Counted 100, Neutrophils % (Manual) 91 H, Lymphocytes % (Manual) 8 L, Basophils % (Manual) 1.0, Platelet Estimate Normal, Ovalocytes 1+, Sodium 134 L, Potassium 4.9, Chloride 100, Carbon Dioxide 33 H, Anion Gap 5.9, BUN 29 H, Creatinine 1.00, Estimated Creat Clear 49, Estimated GFR 72, Est GFR ( Amer) 87, Glucose 133 H, Calcium 8.7, Magnesium 2.2, Total Bilirubin 0.6, AST 20 D, ALT 17, Alkaline Phosphatase 67, Total Protein 6.2 L, Albumin 3.4 L D, Globulin 2.8, Albumin/Globulin Ratio 1.2 I & O for Last 24 hours: Intake & Output 07/18/24 07/19/24 07/20/24 07/21/24 23:59 23:59 23:59 23:59 Intake Total 240 / 240 1685 / 1685 Output Total 500 / 500 1360 / 1360 Balance -260 / -260 325 / 325 Weight 56.699 kg 57.19 kg Microbiology Reports for the Last 24 Hours: Microbiology 07/20/24 11:40 Blood Blood Culture - Preliminary NO GROWTH AFTER 24 HOURS 07/20/24 09:34 Blood Blood Culture - Preliminary NO GROWTH AFTER 24 HOURS 07/20/24 14:50 Sputum - Expectorated Sputum Gram Stain - Final Constitutional Constitutional: no acute distress *Routine HEENT Exam Head: Present normocephalic Eye: Present EOMI and PERRL ENT: Present mucous membranes moist *Routine Neck Exam Neck: Present supple; Absent lymphadenopathy *Routine Respiratory Exam Respiratory: Present decreased breath sounds, wheezes and diminished air movement; Absent CTA bilaterally *Routine Cardiovascular Exam Cardiovascular: Present RRR *Routine Abdominal Exam Abdominal: Present soft and normoactive bowel sounds; Absent tenderness *Routine Extremities Exam Extremities: Absent cyanosis, clubbing or edema *Routine Skin Exam Skin: Present warm; Absent rash *Routine Neurological Exam Neurological: Present alert and oriented X3 Assessment and Plan *Assessment and plan (1) Acute and chronic respiratory failure with hypoxia: Status: Acute Category: Medical Code(s): J96.21 - Acute and chronic respiratory failure with hypoxia (2) Sepsis: Status: Acute Qualifiers: Acute respiratory failure type: with hypoxia Sepsis acute organ dysfunction status: with acute organ dysfunction Sepsis type: sepsis due to unspecified organism Severe sepsis acute organ dysfunction type: acute respiratory failure Severe sepsis shock status: without septic shock Qualified Code(s): A41.9 - Sepsis, unspecified organism; R65.20 - Severe sepsis without septic shock; J96.01 - Acute respiratory failure with hypoxia Category: Medical Code(s): A41.9 - Sepsis, unspecified organism (3) Stage 4 very severe COPD by GOLD classification: Status: Acute Category: Medical Code(s): J44.9 - Chronic obstructive pulmonary disease, unspecified (4) Afib: Status: Acute Category: Medical Code(s): I48.91 - Unspecified atrial fibrillation (5) Multiple lung nodules on CT: Status: Chronic Category: Medical Code(s): R91.8 - Other nonspecific abnormal finding of lung field (6) Smoking greater than 30 pack years: Status: Chronic Category: Social Hx Code(s): F17.210 - Nicotine dependence, cigarettes, uncomplicated (7) GERD (gastroesophageal reflux disease): Status: Acute Category: Medical Code(s): K21.9 - Gastro-esophageal reflux disease without esophagitis (8) Pulmonary cachexia due to COPD: Status: Acute Category: Medical Code(s): R64 - Cachexia; J44.9 - Chronic obstructive pulmonary disease, unspecified (9) Severe protein-calorie malnutrition: Status: Acute Category: Medical Code(s): E43 - Unspecified severe protein-calorie malnutrition (10) Acute exacerbation of chronic obstructive pulmonary disease: Status: Acute Category: Medical Code(s): J44.1 - Chronic obstructive pulmonary disease with (acute) exacerbation (11) Hypertension: Status: Chronic Category: Medical Code(s): I10 - Essential (primary) hypertension Plan 79-year-old male with stage IV Gold COPD. Presented with acute respiratory failure with hypoxia and hypercarbia. Suspect pneumonia based on imaging along with sepsis based on vital instability. Discussed case with ER physician, request admission for further management. I agreed to admit for further care. Will have pulmonology assist with care. Showing some response to treatment at this time. Continues to necessitate high level of care, will maintain in our stepdown unit. Problems addressed as follows: Acute on chronic hypoxemic respiratory failure with acute hypercapnia Right lower lobe pneumonia Gold stage IV severe COPD COPD exacerbation Bullous emphysema ? Initially on BiPAP, weaned to baseline 2 L nasal cannula. However, continues to have significant wheezing and increased work of breathing. - Continue ceftriaxone 2 g daily and azithromycin 500 mg IV daily. Continue DuoNebs every 4 hours scheduled and budesonide twice daily - Received methylprednisolone 125 mg IV once in the ED. continue prednisone 40 mg daily - Pulmonology consulted, appreciate their recommendations and care. - Sputum and blood cultures pending - Per my review of chest CT, has severely dilated bulla with his emphysematous changes and severe destruction of lungs. Has focal consolidation and density like appearance in right lower lung concerning for mass versus pneumonia. White count elevated at 16. - Repeat CBC, CMP, magnesium ordered for the morning. A-fib Hypertension - Can home Eliquis 5 mg twice daily, Lasix 20 mg daily, metoprolol succinate 50 mg daily BPH: Continue tamsulosin 0.4 mg twice daily Tremor: Continue primidone 50 mg daily Severe protein calorie malnutrition/pulmonary cachexia: Complicates all aspects of his care. High-protein supplementation. DNR Eliquis Regular diet
[2024-07-21 19:11] LABS: Adenovirus,PCR Not Detected (NotDetected); Bordetella Pertussis Not Detected (NotDetected); Chlamydophila Pneumoniae, PCR Not Detected (NotDetected); Coronavirus 19, PCR Not Detected (NotDetected); Coronavirus 229E Not Detected (NotDetected); Coronavirus NL63 Not Detected (NotDetected); Coronavirus OC43 Not Detected (NotDetected); Coronovirus HKU1,PCR Not Detected (NotDetected); Human Metapneumovirus Not Detected (NotDetected); Influenza A, PCR Not Detected (NotDetected); Influenza AH1, 2009 Not Detected (NotDetected); Influenza AH1, PCR Not Detected (NotDetected); Influenza AH3,PCR Not Detected (NotDetected); Influenza B, PCR Not Detected (NotDetected); Mycoplasma Pneumoniae, PCR Not Detected (NotDetected); Parainfluenza 1, PCR Not Detected (NotDetected); Parainfluenza 2, PCR Not Detected (NotDetected); Parainfluenza 3, PCR Not Detected (NotDetected); Parainfluenza 4, PCR Not Detected (NotDetected); Respiratory Syncytial Virus Not Detected (NotDetected); Rhinovirus/Enterovirus Not Detected (NotDetected)
--- NOTE | 2024-07-21 19:53 | PC.NURSE ---
Patient arrived to floor via wheelchair from ICU at 19:45.
[2024-07-21] MEDS: FAMOTIDINE 20MG TABLET 40 MG PO (21:17)
[2024-07-22] VITALS (11 sets, daily range): BP systolic 126–166; BP diastolic 74–95; PULSE 54–112; RESP 14–19; TEMP 36.5–37; O2SAT 91–98; BMI 28.8
[2024-07-22] MEDS: IPRATROPIUM/ALBUTEROL 3 ML NEB IH ×4 (01:46→22:46)
[2024-07-22] MEDS: BUDESONIDE 0.5MG/2ML NEB 0.5 MG IH (06:04)
[2024-07-22 06:48] LABS: Basophils % 0.1 % (0.1-2.0); Eosinophils % 0.1 % (0.1-12.0); Hematocrit 35.7 % (42.0-52.0); Hemoglobin 11.5 g/dL (14.1-18.0); Immature Granulocytes # 0.08 10^3uL; Immature Granulocytes % 0.7 %; Lymphocytes # 1.1 K/mm3 (0.7-4.5); Lymphocytes % 9.4 % (10-50); Mean Corpuscular HGB Conc 32.2 g/dL (31.8-35.4); Mean Corpuscular Hemoglobin 30.3 pg (27.0-31.2); Mean Corpuscular Volume 93.9 fl (80-94); Mean Platelet Volume 10.2 fl (7.4-10.4); Monocytes # 0.8 K/mm3 (0.1-1.0); Monocytes % 7.2 % (1.7-9.3); Neutrophils # 9.2 K/mm3 (1.8-7.8); Neutrophils % 82.5 % (37.0-80.0); Nucleated Red Blood Cells # 0 10^3/uL; Nucleated Red Blood Cells % 0 %; Platelet Count 234 K/mm3 (142-424); Red Cell Distribution Width 13.8 % (11.5-17.5); Red Cell Distribution Width-SD 47.5 fL; White Blood Count 11.1 K/mm3 (4.8-10.8)
[2024-07-22 06:51] LABS: Alanine Aminotransferase 21 U/L (12-78); Albumin Level 3.7 g/dl (3.5-5.0); Albumin/Globulin Ratio 1.3 (1.1-1.8); Alkaline Phosphatase 98 U/L (38-126); Anion Gap 8.2 mEq/L (5-15); Aspartate Amino Transferase 37 U/L (17-59); Bilirubin,Total 0.3 mg/dl (0.2-1.3); Blood Urea Nitrogen 27 mg/dl (9-20); Calcium 9.3 mg/dl (8.4-10.2); Carbon Dioxide 31 mmol/L (22.0-30.0); Chloride 99 mmol/L (98-107); Creatinine Clearance Estimated 76 mL/min (50-200); Estimated Glomerular Filt Rate 82 ml/min (>60); GFR (African American) 99 ML/MIN (>60); Globulin 2.9 g/dL (1.3-3.2); Glucose 98 mg/dl (74-100); Potassium 4.2 mmoL/L (3.5-5.1); Sodium 134 mmol/L (136-145); Total Protein,Serum 6.6 g/dl (6.3-8.2)
--- NOTE | 2024-07-22 06:56 | PC.NURSE ---
Pt had only urinated 200 ml since díaz was removed yesterday afternoon. Pt states he feels like he has to but is unable. Bladder scan revealed 733 ml. Hospitalist notified and ordered to in and out cath. 800ml removed from bladder.
[2024-07-22] MEDS: FUROSEMIDE 20MG TABLET 20 MG PO (09:30)
[2024-07-22] MEDS: METOPROLOL SUCCINATE XL 50MG TABLET 50 MG PO (09:30)
[2024-07-22] MEDS: APIXABAN 5MG TABLET 5 MG PO ×2 (09:30→20:51)
--- NOTE | 2024-07-22 09:30 | EXP.PULM.PN ---
Subjective *Date: 07/22/24 *Time: 13:47 Interval history: No acute respiratory events overnight. Patient denies any new respiratory complaints. Admits continued improvement in his respiratory symptoms Pulmonology Exam Inpatient Vital signs and Labs for Last 24 Hours: Temp Pulse Resp BP Pulse Ox O2 Del Method O2 Flow Rate 97.7 F 86 19 160/80 H 91 L Nasal Cannula 3 07/22/24 08:00 07/22/24 08:00 07/22/24 08:00 07/22/24 08:00 07/22/24 08:00 07/22/24 09:00 07/22/24 09:00 FiO2 40 07/20/24 10:20 Laboratory Results - last 24 hr 07/21/24 19:00: Chlamy pneumoniae PCR Not detected, Adenovirus (PCR) Not detected, B. pertussis DNA (PCR) Not detected, Coronavirus OC43 (PCR) Not detected, Coronavirus HKU1 (PCR) Not detected, Coronavirus 229E (PCR) Not detected, SARS-CoV-2 (PCR) Not detected, Coronavirus NL63 (PCR) Not detected, Human Metapneumovir PCR Not detected, Influenza A (H1) PCR Not detected, Influ A (H1N1/09) PCR Not detected, Influenza A (H3) PCR Not detected, Influenza Type A (PCR) Not detected, Influenza Type B (PCR) Not detected, M. pneumoniae (PCR) Not detected, Parainfluenza 1 (PCR) Not detected, Parainfluenza 2 (PCR) Not detected, Parainfluenza 3 (PCR) Not detected, Parainfluenza 4 (PCR) Not detected, RSV (PCR) Not detected, Entero/Rhino (PCR) Not detected 07/22/24 05:55: WBC 11.1 H D, RBC 3.80 L, Hgb 11.5 L, Hct 35.7 L, MCV 93.9, MCH 30.3, MCHC 32.2, RDW 13.8, Plt Count 234, MPV 10.2, Neut % (Auto) 82.5 H, Lymph % (Auto) 9.4 L, Brewster % (Auto) 7.2, Eos % (Auto) 0.1, Baso % (Auto) 0.1, Neut # (Auto) 9.2 H, Lymph # (Auto) 1.1, Brewster # (Auto) 0.8, Eos # (Auto) 0.0, Baso # (Auto) 0.0, Sodium 134 L, Potassium 4.2, Chloride 99, Carbon Dioxide 31 H, Anion Gap 8.2, BUN 27 H, Creatinine 0.90, Estimated Creat Clear 76, Estimated GFR 82, Est GFR ( Amer) 99, Glucose 98, Calcium 9.3, Magnesium 2.0, Total Bilirubin 0.3, AST 37 D, ALT 21, Alkaline Phosphatase 98, Total Protein 6.6, Albumin 3.7, Globulin 2.9, Albumin/Globulin Ratio 1.3 Temp Pulse Resp BP Pulse Ox O2 Del Method O2 Flow Rate 98.4 F 87 20 126/57 L 94 L Nasal Cannula 4 07/20/24 09:39 07/20/24 12:00 07/20/24 12:00 07/20/24 12:00 07/20/24 12:00 07/20/24 12:00 07/20/24 12:00 Laboratory Results - last 24 hr 07/20/24 09:30: WBC 16.2 H, RBC 4.47 L, Hgb 13.4 L, Hct 42.4, MCV 94.9 H, MCH 30.0, MCHC 31.6 L, RDW 13.2, Plt Count 263, MPV 9.9, Neut % (Auto) 85.8 H, Lymph % (Auto) 8.8 L, Brewster % (Auto) 4.6, Eos % (Auto) 0.2, Baso % (Auto) 0.3, Neut # (Auto) 13.9 H, Lymph # (Auto) 1.4, Brewster # (Auto) 0.7, Eos # (Auto) 0.0, Baso # (Auto) 0.1, VBG pH 7.26 L, VBG pCO2 71.6 H, VBG pO2 38.4, VBG HCO3 31.1 H, VBG Total CO2 33.3 H, VBG O2 Saturation 65.6, VBG Base Excess 4.0 H, VBG Lactic Acid 1.8, Sodium 134 L, Potassium 4.6, Chloride 98, Carbon Dioxide 33 H, Anion Gap 7.6, BUN 29 H, Creatinine 0.90, Estimated Creat Clear 49, Estimated GFR 82, Est GFR ( Amer) 99, Glucose 117 H, Calcium 9.1, Total Bilirubin 0.5, AST 28, ALT 18, Alkaline Phosphatase 81, Troponin I < 0.01, Total Protein 7.2, Albumin 4.2, Globulin 3.0, Albumin/Globulin Ratio 1.4, HCV Ab EFRAIN w/Rflx PCR Qn Negative, HIV Ag/Ab Combo Qual Negative I & O for Labs for Last 24 Hours: Intake & Output 07/19/24 07/20/24 07/21/24 07/22/24 23:59 23:59 23:59 23:59 Intake Total 240 / 240 1685 / 1785 460 / 460 Output Total 500 / 500 1360 / 1360 1000 / 1000 Balance -260 / -260 325 / 425 -540 / -540 Weight 125 lb 126 lb 1.318 oz 194 lb 12.8 oz Intake & Output 07/17/24 07/18/24 07/19/24 07/20/24 23:59 23:59 23:59 23:59 Weight 125 lb Microbiology Reports for the Last 24 Hours: Microbiology 07/20/24 11:40 Blood Blood Culture - Preliminary NO GROWTH AFTER 24 HOURS 07/20/24 09:34 Blood Blood Culture - Preliminary NO GROWTH AFTER 24 HOURS Constitutional: Present moderate distress Head: Present normocephalic and atraumatic ENT: Present normal exam, normal oropharynx and mucous membranes moist Neck: Present normal inspection and full ROM Respiratory: Present respiratory distress, wheezes and able to speak in complete sentences; Absent crackles or diminished air movement Cardiac: Present S1/S2, Tachycardia and radial pulses present GI: Present soft and distention; Absent tenderness or guarding Skin: Present intact; Absent cyanosis or jaundice Neuro: Present alert, awake and oriented x 3 Extremities: Present normal inspection; Absent clubbing or cyanosis Psychiatric: Present normal affect and cooperative Assessment and Plan *Assessment and plan (1) Chronic obstructive pulmonary disease with acute exacerbation: Status: Acute Category: Medical Code(s): J44.1 - Chronic obstructive pulmonary disease with (acute) exacerbation (2) Pneumonia: Status: Resolved Qualifiers: Laterality: bilateral Lung location: unspecified part of lung Pneumonia type: due to unspecified organism Qualified Code(s): J18.9 - Pneumonia, unspecified organism Category: Medical Code(s): J18.9 - Pneumonia, unspecified organism (3) COPD exacerbation: Status: Resolved Category: Medical Code(s): J44.1 - Chronic obstructive pulmonary disease with (acute) exacerbation Plan Mr. Garcia is a 79-year-old female current smoker greater than [id number] smoking history, COPD, chronic hypoxic respiratory failure, bullous emphysema presented to the ER with worsening respiratory distress and pulmonary was called for further evaluation and management. Patient admits relatively acute onset worsening respiratory symptoms. Admits subjective fevers and chills. Denies any worsening cough/productive phlegm Afebrile. Hemodynamically stable. Neutrophilic prominent leukocytosis. Blood gas upon admission venous showed hypercarbic respiratory failure with pH of 7.26 and a PCO2 of 71.6. COVID-19 and flu PCR panel negative. CTA upon admission with dense right lower lobe consolidative changes. No obvious central pulmonary embolism. Patient on examination no significant wheezing noted. Bilateral lower extremity edema, left greater than right. Subsequent VBG improved with resolution of hypercarbic respiratory failure. Interval update: No acute respiratory events overnight. Stable oxygen requirements. Improving leukocytosis. Blood cultures no growth so far. Sputum gram-positive diplococci Plan: Continue oxygen supplementation to maintain O2 saturation goal of 90% and Continue ceftriaxone azithromycin pending sputum culture results, antibiotics can be weaned to cefdinir to complete a total of 5-day course Prednisone 40mg daily x 5 days Follow-up with final sputum Gram stain culture sensitivities Initiate home Breztri inhaler 2 puffs twice a day along with DuoNebs 4 times daily as needed. Patient not taking any Wixela or Spiriva at this point of time admits that inhalers were changed to Breztri 2 puffs twice daily with Combivent 4 times daily PRN. # Thank you for involving pulmonary in this patient care. Will follow patient in pulmonary clinic 5 to 7 days postdischarge
[2024-07-22] MEDS: PANTOPRAZOLE 40MG TABLET 40 MG PO (09:31)
[2024-07-22] MEDS: TAMSULOSIN 0.4MG CAPSULE 0.4 MG PO ×2 (09:31→20:51)
[2024-07-22] MEDS: predniSONE 20MG TAB 40 MG PO (09:31)
[2024-07-22] MEDS: PRIMIDONE 50MG TABLET 50 MG PO (09:31)
--- NOTE | 2024-07-22 10:34 | HMH.OTEV ---
OT Inpatient Evaluation Rehab OT IP Evaluation Start: 07/21/24 09:22 Freq: ONCE Status: Active Protocol: Document 07/22/24 10:26 ARSHALL (Rec: 07/22/24 10:34 [facility] [id number]) Rehab OT IP Assessment Subjective History Pt oriented x 3 on arrival. Pt agreeable to engage in therapy evaluation. Pt admitted on 07/20/24 due to respiratory failure. History and physical: Mr. 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 He presented to the ED with complaint of shortness of breath that worsened this morning at 430 acutely. Had a cough, mildly productive. Denies fever, nausea, vomiting. States that sometimes he has pain in the right side of his chest that he equates to lung pain . 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 On arrival to the ER patient was found to be hypoxic and hypercapnic. Normally wears 2 L oxygen, necessitated BiPAP placement. Chest imaging concerning initially possibly for pneumothorax, CT however shows significant bullous emphysema. Initial workup with tachypnea, white count of 16, consolidation right lower lobe concerning for pneumonia . Medicine consulted to admit for acute on chronic hypoxemic respiratory failure with hypercapnia meeting sepsis criteria. Pulmonology consulted to assist with management. On arrival to the unit, patient has shown some improvement with significant DuoNebs, steroids, magnesium. Responded well to BiPAP therapy. Has weaned to nasal cannula at this time but still requiring more than his baseline oxygen. Necessitating close monitoring due to acute episode of distress. Will continue to monitor stepdown level of care . Subjective It's just my breath. Prior to being in the hospital , pt lived at home alone. Pt claims normally he is independent with all ADLs such as bathing, dressing, and feeding. Pt does have someone come in twice a week to complete cooking, cleaning, and grocery shopping. Pt's o2 dropped to 83% twice during evaluation after sitting up at eob and completing functional mobility task. Pt took ~3-4 minutes both times to recover. Objective Patient Orientation Person,Place,Birthday Right Upper Extremity Gross ROM WFL Left Upper Extremity Gross ROM WFL Bed Mobility bed mobility-scooting,bed mobility - supine/sit Assist Level Contact Guard/Hand Hold Transfer Training Sit/Stand Transfer Assist Level Contact Guard/Hand Hold Lower Body Dressing Ability Standby Assistance Rehab OT IP prob,goals,plan Problems Date of Evaluation: 07/22/24 OT IP Problems Bed Mobility,Transfers,Balance ,Self care,Safety Rehab Potential Rehab Potential Good Equipment Needs Assistive Devices Rolling / Wheeled Walker Plan OT intervention Plan Bed Mobility,Transfers,Balance ,Self care,Safety,Therapeutic Exercise OT Plan Frequency Daily Duration LOS Discharge Goals Bed Mobility Ability Standby Assistance Sit to Stand Chair Transfer Ability Supervision/Stand by Chair Transfer Ability Supervision/Stand by Chair Transfer Technique Sit to/from Ambulatory Chair Transfer Assistive Devices Rolling Walker Lower Body Dressing Ability Standby Assistance Upper Body Dressing Ability Standby Assistance Performing Toilet Hygiene Ability Standby Assistance Overall Commode/Toilet Transfer Ability Standby Assistance Commode/Toilet Transfer Technique Sit to/from Ambulatory Discharge Plan OT Discharge Plan Pt will continue to be seen for OT services while at [facility]. Pt would benefit most from short term rehab at SNF following hospital stay for continued skilled therapy. However, if patient is reluctant he could possibly return home with assistance and HH OT evaluation. Continued skilled therapy is important in order for patient to improve strength, safety, endurance, ADL independence, and functional transfers to reach PLOF. Eval Complexity Eval Charge Codes 88380 - Moderate Complexity PHYSICIAN CERTIFICATION: I certify the specified therapy services for Carroll Garcia are required, authorized, and reviewed every 30 days.
[2024-07-22] MEDS: AZITHROMYCIN 500 MG in 0.9 % SODIUM CHLORIDE 250 ML 250 MG IV (11:24)
[2024-07-22] MEDS: CEFTRIAXONE SODIUM 2 GM in 0.9 % SODIUM CHLORIDE 100 ML IV (12:36)
[2024-07-22] MEDS: FAMOTIDINE 20MG TABLET 40 MG PO (20:51)
--- NOTE | 2024-07-22 21:19 | EXP.PN ---
Subjective *Date: 07/22/24 *Time: 21:19 Interval history: Patient feeling better today, but on my evaluation was still having increased work of breathing and diffuse mild to moderate wheezing. Continue monitor for 1 more day, anticipate discharge in the morning if patient continues to improve. Exam Data for Last 24 hours Vital signs and Labs for Last 24 Hours: Temp Pulse Resp BP Pulse Ox O2 Del Method O2 Flow Rate 97.7 F 70 18 153/83 H 97 Nasal Cannula 3 07/22/24 20:00 07/22/24 20:00 07/22/24 20:00 07/22/24 20:00 07/22/24 20:00 07/22/24 20:00 07/22/24 20:00 FiO2 40 07/20/24 10:20 Laboratory Results - last 24 hr 07/22/24 05:55: WBC 11.1 H D, RBC 3.80 L, Hgb 11.5 L, Hct 35.7 L, MCV 93.9, MCH 30.3, MCHC 32.2, RDW 13.8, Plt Count 234, MPV 10.2, Neut % (Auto) 82.5 H, Lymph % (Auto) 9.4 L, [place]phill % (Auto) 7.2, Eos % (Auto) 0.1, Baso % (Auto) 0.1, Neut # (Auto) 9.2 H, Lymph # (Auto) 1.1, [place]phill # (Auto) 0.8, Eos # (Auto) 0.0, Baso # (Auto) 0.0, Sodium 134 L, Potassium 4.2, Chloride 99, Carbon Dioxide 31 H, Anion Gap 8.2, BUN 27 H, Creatinine 0.90, Estimated Creat Clear 76, Estimated GFR 82, Est GFR ( Amer) 99, Glucose 98, Calcium 9.3, Magnesium 2.0, Total Bilirubin 0.3, AST 37 D, ALT 21, Alkaline Phosphatase 98, Total Protein 6.6, Albumin 3.7, Globulin 2.9, Albumin/Globulin Ratio 1.3 I & O for Last 24 hours: Intake & Output 07/19/24 07/20/24 07/21/24 07/22/24 23:59 23:59 23:59 23:59 Intake Total 240 / 240 1685 / 1785 1200 / 1200 Output Total 500 / 500 1360 / 1360 1900 / 1900 Balance -260 / -260 325 / 425 -700 / -700 Weight 56.699 kg 57.19 kg 88.36 kg Microbiology Reports for the Last 24 Hours: Microbiology 07/20/24 11:40 Blood Blood Culture - Preliminary NO GROWTH AFTER 48 HOURS 07/20/24 09:34 Blood Blood Culture - Preliminary NO GROWTH AFTER 48 HOURS 07/20/24 14:50 Sputum - Expectorated Sputum Gram Stain - Final 07/20/24 14:50 Sputum - Expectorated Sputum Sputum Culture - Preliminary Constitutional Constitutional: no acute distress *Routine HEENT Exam Head: Present normocephalic Eye: Present EOMI and PERRL ENT: Present mucous membranes moist *Routine Neck Exam Neck: Present supple; Absent lymphadenopathy *Routine Respiratory Exam Respiratory: Present decreased breath sounds, wheezes and diminished air movement; Absent CTA bilaterally *Routine Cardiovascular Exam Cardiovascular: Present RRR *Routine Abdominal Exam Abdominal: Present soft and normoactive bowel sounds; Absent tenderness *Routine Extremities Exam Extremities: Absent cyanosis, clubbing or edema *Routine Skin Exam Skin: Present warm; Absent rash *Routine Neurological Exam Neurological: Present alert and oriented X3 Assessment and Plan *Assessment and plan (1) Acute and chronic respiratory failure with hypoxia: Status: Acute Category: Medical Code(s): J96.21 - Acute and chronic respiratory failure with hypoxia (2) Sepsis: Status: Acute Qualifiers: Acute respiratory failure type: with hypoxia Sepsis acute organ dysfunction status: with acute organ dysfunction Sepsis type: sepsis due to unspecified organism Severe sepsis acute organ dysfunction type: acute respiratory failure Severe sepsis shock status: without septic shock Qualified Code(s): A41.9 - Sepsis, unspecified organism; R65.20 - Severe sepsis without septic shock; J96.01 - Acute respiratory failure with hypoxia Category: Medical Code(s): A41.9 - Sepsis, unspecified organism (3) Stage 4 very severe COPD by GOLD classification: Status: Acute Category: Medical Code(s): J44.9 - Chronic obstructive pulmonary disease, unspecified (4) Afib: Status: Acute Category: Medical Code(s): I48.91 - Unspecified atrial fibrillation (5) Multiple lung nodules on CT: Status: Chronic Category: Medical Code(s): R91.8 - Other nonspecific abnormal finding of lung field (6) Smoking greater than 30 pack years: Status: Chronic Category: Social Hx Code(s): F17.210 - Nicotine dependence, cigarettes, uncomplicated (7) GERD (gastroesophageal reflux disease): Status: Acute Category: Medical Code(s): K21.9 - Gastro-esophageal reflux disease without esophagitis (8) Pulmonary cachexia due to COPD: Status: Acute Category: Medical Code(s): R64 - Cachexia; J44.9 - Chronic obstructive pulmonary disease, unspecified (9) Severe protein-calorie malnutrition: Status: Acute Category: Medical Code(s): E43 - Unspecified severe protein-calorie malnutrition (10) Acute exacerbation of chronic obstructive pulmonary disease: Status: Acute Category: Medical Code(s): J44.1 - Chronic obstructive pulmonary disease with (acute) exacerbation (11) Hypertension: Status: Chronic Category: Medical Code(s): I10 - Essential (primary) hypertension Plan Carroll Garcia is a 79-year-old male with stage IV Gold COPD. Presented with acute respiratory failure with hypoxia and hypercarbia. Suspect pneumonia based on imaging along with sepsis based on vital instability. Discussed case with ER physician, request admission for further management. I agreed to admit for further care. Acute on chronic hypoxemic respiratory failure with acute hypercapnia Right lower lobe pneumonia Gold stage IV severe COPD COPD exacerbation Bullous emphysema ? Initially on BiPAP, weaned to baseline 2-3 L nasal cannula. ? Patient seems to have improved today, but on my evaluation he was still having increased work of breathing with diffuse wheezing. ? Pulmonology following, transitioned to home [facility] today. - Continue ceftriaxone 2 g daily and azithromycin 500 mg IV daily. - Continue prednisone 40 mg daily. - Sputum and blood cultures pending - Per my review of chest CT, has severely dilated bulla with his emphysematous changes and severe destruction of lungs. Has focal consolidation and density like appearance in right lower lung concerning for mass versus pneumonia. White count elevated at 16. - Repeat CBC, CMP, magnesium ordered for the morning. #Physical deconditioning ? PT/OT recommended SNF, patient prefers home health. A-fib Hypertension - Continue Eliquis 5 mg twice daily, Lasix 20 mg daily, metoprolol succinate 50 mg daily BPH: Continue tamsulosin 0.4 mg twice daily Tremor: Continue primidone 50 mg daily Severe protein calorie malnutrition/pulmonary cachexia: Complicates all aspects of his care. High-protein supplementation. DNR Vj Regular diet
[2024-07-23] VITALS: PULSE 65
[2024-07-23 04:00] VITALS: BP 158/81; PULSE 65; PULSE 76; RESP 16; TEMP 36.3; O2SAT 98; BMI 18.3
--- NOTE | 2024-07-23 05:01 | PC.NURSE ---
Pt AOx4. Pt continually denies pain or any issues. Currently resting in bed with eyes closed. Respirations even and unlabored. Bed low, locked, and call light in reach.
[2024-07-23 06:08] VITALS: O2SAT 98
[2024-07-23] MEDS: BUDESONIDE IH (06:15)
[2024-07-23] MEDS: FORMOTEROL IH (06:15)
[2024-07-23] MEDS: GLYCOPYRROLATE IH (06:15)
[2024-07-23 06:53] LABS: Basophils % 0.1 % (0.1-2.0); Eosinophils % 0.1 % (0.1-12.0); Hematocrit 35.2 % (42.0-52.0); Hemoglobin 11.6 g/dL (14.1-18.0); Immature Granulocytes # 0.03 10^3uL; Immature Granulocytes % 0.4 %; Lymphocytes % 12.7 % (10-50); Mean Corpuscular Hemoglobin 30.8 pg (27.0-31.2); Mean Corpuscular Volume 93.4 fl (80-94); Mean Platelet Volume 9.8 fl (7.4-10.4); Monocytes # 0.6 K/mm3 (0.1-1.0); Neutrophils # 6.1 K/mm3 (1.8-7.8); Neutrophils % 78.7 % (37.0-80.0); Nucleated Red Blood Cells # 0 10^3/uL; Nucleated Red Blood Cells % 0 %; Platelet Count 234 K/mm3 (142-424); Red Blood Count 3.77 M/mm3 (4.60-6.20); Red Cell Distribution Width 13.3 % (11.5-17.5); Red Cell Distribution Width-SD 45.7 fL; White Blood Count 7.7 K/mm3 (4.8-10.8)
[2024-07-23 07:01] LABS: Alanine Aminotransferase 22 U/L (12-78); Albumin Level 3.6 g/dl (3.5-5.0); Albumin/Globulin Ratio 1.3 (1.1-1.8); Alkaline Phosphatase 70 U/L (38-126); Aspartate Amino Transferase 27 U/L (17-59); Bilirubin,Total 0.3 mg/dl (0.2-1.3); Blood Urea Nitrogen 26 mg/dl (9-20); Calcium 9.2 mg/dl (8.4-10.2); Carbon Dioxide 36 mmol/L (22.0-30.0); Chloride 96 mmol/L (98-107); Creatinine Clearance Estimated 48 mL/min (50-200); Estimated Glomerular Filt Rate 82 ml/min (>60); GFR (African American) 99 ML/MIN (>60); Globulin 2.7 g/dL (1.3-3.2); Glucose 86 mg/dl (74-100); Magnesium 1.9 mg/dl (1.6-2.3); Sodium 134 mmol/L (136-145); Total Protein,Serum 6.3 g/dl (6.3-8.2)
[2024-07-23 08:00] VITALS: BP 146/84; PULSE 70; PULSE 80; RESP 19; TEMP 36.7; O2SAT 93; O2SAT 94
--- NOTE | 2024-07-23 08:09 | P.PN_ITS ---
Subjective *Date: 07/23/24 *Time: 13:36 Interval history: No acute respiratory vents overnight Pulmonology Exam Inpatient Vital signs and Labs for Last 24 Hours: Temp Pulse Resp BP Pulse Ox O2 Del Method O2 Flow Rate 97.3 F L 76 16 158/81 H 98 Nasal Cannula 2 07/23/24 04:00 07/23/24 04:00 07/23/24 04:00 07/23/24 04:00 07/23/24 06:08 07/23/24 06:30 07/23/24 06:30 FiO2 40 07/20/24 10:20 Laboratory Results - last 24 hr 07/23/24 05:24: WBC 7.7 D, RBC 3.77 L, Hgb 11.6 L, Hct 35.2 L, MCV 93.4, MCH 30.8, MCHC 33.0, RDW 13.3, Plt Count 234, MPV 9.8, Neut % (Auto) 78.7, Lymph % (Auto) 12.7, Pershing % (Auto) 8.0, Eos % (Auto) 0.1, Baso % (Auto) 0.1, Neut # (Auto) 6.1, Lymph # (Auto) 1.0, Pershing # (Auto) 0.6, Eos # (Auto) 0.0, Baso # (Auto) 0.0, Sodium 134 L, Potassium 4.0, Chloride 96 L, Carbon Dioxide 36 H, Anion Gap 6.0, BUN 26 H, Creatinine 0.90, Estimated Creat Clear 48, Estimated GFR 82, Est GFR ( Amer) 99, Glucose 86, Calcium 9.2, Magnesium 1.9, Total Bilirubin 0.3, AST 27 D, ALT 22, Alkaline Phosphatase 70, Total Protein 6.3, Albumin 3.6, Globulin 2.7, Albumin/Globulin Ratio 1.3 Temp Pulse Resp BP Pulse Ox O2 Del Method O2 Flow Rate 98.4 F 87 20 126/57 L 94 L Nasal Cannula 4 07/20/24 09:39 07/20/24 12:00 07/20/24 12:00 07/20/24 12:00 07/20/24 12:00 07/20/24 12:00 07/20/24 12:00 Laboratory Results - last 24 hr 07/20/24 09:30: WBC 16.2 H, RBC 4.47 L, Hgb 13.4 L, Hct 42.4, MCV 94.9 H, MCH 30.0, MCHC 31.6 L, RDW 13.2, Plt Count 263, MPV 9.9, Neut % (Auto) 85.8 H, Lymph % (Auto) 8.8 L, Pershing % (Auto) 4.6, Eos % (Auto) 0.2, Baso % (Auto) 0.3, Neut # (Auto) 13.9 H, Lymph # (Auto) 1.4, Pershing # (Auto) 0.7, Eos # (Auto) 0.0, Baso # (Auto) 0.1, VBG pH 7.26 L, VBG pCO2 71.6 H, VBG pO2 38.4, VBG HCO3 31.1 H, VBG Total CO2 33.3 H, VBG O2 Saturation 65.6, VBG Base Excess 4.0 H, VBG Lactic Acid 1.8, Sodium 134 L, Potassium 4.6, Chloride 98, Carbon Dioxide 33 H, Anion Gap 7.6, BUN 29 H, Creatinine 0.90, Estimated Creat Clear 49, Estimated GFR 82, Est GFR ( Amer) 99, Glucose 117 H, Calcium 9.1, Total Bilirubin 0.5, AST 28, ALT 18, Alkaline Phosphatase 81, Troponin I < 0.01, Total Protein 7.2, Albumin 4.2, Globulin 3.0, Albumin/Globulin Ratio 1.4, HCV Ab EFRAIN w/Rflx PCR Qn Negative, HIV Ag/Ab Combo Qual Negative I & O for Labs for Last 24 Hours: Intake & Output 07/20/24 07/21/24 07/22/24 07/23/24 23:59 23:59 23:59 23:59 Intake Total 240 / 240 1685 / 1785 1200 / 1200 Output Total 500 / 500 1360 / 1360 1900 / 1900 350 / 350 Balance -260 / -260 325 / 425 -700 / -700 -350 / -350 Weight 125 lb 126 lb 1.318 oz 194 lb 12.8 oz 123 lb 11.2 oz Intake & Output 07/17/24 07/18/24 07/19/24 07/20/24 23:59 23:59 23:59 23:59 Weight 125 lb Microbiology Reports for the Last 24 Hours: Microbiology 07/20/24 11:40 Blood Blood Culture - Preliminary NO GROWTH AFTER 48 HOURS 07/20/24 09:34 Blood Blood Culture - Preliminary NO GROWTH AFTER 48 HOURS 07/20/24 14:50 Sputum - Expectorated Sputum Gram Stain - Final 07/20/24 14:50 Sputum - Expectorated Sputum Sputum Culture - Preliminary Constitutional: Present moderate distress Head: Present normocephalic and atraumatic ENT: Present normal exam, normal oropharynx and mucous membranes moist Neck: Present normal inspection and full ROM Respiratory: Present respiratory distress, wheezes and able to speak in complete sentences; Absent crackles or diminished air movement Cardiac: Present S1/S2, Tachycardia and radial pulses present GI: Present soft and distention; Absent tenderness or guarding Skin: Present intact; Absent cyanosis or jaundice Neuro: Present alert, awake and oriented x 3 Extremities: Present normal inspection; Absent clubbing or cyanosis Psychiatric: Present normal affect and cooperative Assessment and Plan *Assessment and plan (1) Chronic obstructive pulmonary disease with acute exacerbation: Status: Acute Category: Medical Code(s): J44.1 - Chronic obstructive pulmonary disease with (acute) exacerbation (2) Pneumonia: Status: Resolved Qualifiers: Laterality: bilateral Lung location: unspecified part of lung Pneumonia type: due to unspecified organism Qualified Code(s): J18.9 - Pneumonia, unspecified organism Category: Medical Code(s): J18.9 - Pneumonia, unspecified organism (3) COPD exacerbation: Status: Resolved Category: Medical Code(s): J44.1 - Chronic obstructive pulmonary disease with (acute) exacerbation Plan Mr. Garcia is a 79-year-old female current smoker greater than [id number] smoking history, COPD, chronic hypoxic respiratory failure, bullous emphysema presented to the ER with worsening respiratory distress and pulmonary was called for further evaluation and management. Patient admits relatively acute onset worsening respiratory symptoms. Admits subjective fevers and chills. Denies any worsening cough/productive phlegm Afebrile. Hemodynamically stable. Neutrophilic prominent leukocytosis. Blood gas upon admission venous showed hypercarbic respiratory failure with pH of 7.26 and a PCO2 of 71.6. COVID-19 and flu PCR panel negative. CTA upon admission with dense right lower lobe consolidative changes. No obvious central pulmonary embolism. Patient on examination no significant wheezing noted. Bilateral lower extremity edema, left greater than right. Subsequent VBG improved with resolution of hypercarbic respiratory failure. Interval update: No acute respiratory events overnight. Stable oxygen requirements. Improving leukocytosis. Blood cultures no growth so far. Sputum gram-positive diplococci Plan: Continue oxygen supplementation to maintain O2 saturation goal of 90% and Continue ceftriaxone azithromycin pending sputum culture results, antibiotics can be weaned to cefdinir to complete a total of 5-day course Prednisone 40mg daily x 5 days Follow-up with final sputum Gram stain culture sensitivities Initiate home Breztri inhaler 2 puffs twice a day along with DuoNebs 4 times daily as needed. Patient not taking any Wixela or Spiriva at this point of time admits that inhalers were changed to Breztri 2 puffs twice daily with Combivent 4 times daily PRN. # Thank you for involving pulmonary in this patient care. Will follow patient in pulmonary clinic 2 weeks postdischarge
[2024-07-23] MEDS: METOPROLOL SUCCINATE XL 50MG TABLET 50 MG PO (08:11)
[2024-07-23] MEDS: APIXABAN 5MG TABLET 5 MG PO (08:11)
[2024-07-23] MEDS: TAMSULOSIN 0.4MG CAPSULE 0.4 MG PO (08:11)
[2024-07-23] MEDS: PRIMIDONE 50MG TABLET 50 MG PO (08:11)
[2024-07-23] MEDS: PANTOPRAZOLE 40MG TABLET 40 MG PO (08:11)
[2024-07-23] MEDS: predniSONE 20MG TAB 40 MG PO (08:11)
--- NOTE | 2024-07-23 08:17 | EXP.DC.SUM ---
General Admission date:: 07/20/24 Discharge date: 07/23/24 HPI HPI HPI: Mr. 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 He presented to the ED with complaint of shortness of breath that worsened this morning at 430 acutely. Had a cough, mildly productive. Denies fever, nausea, vomiting. States that sometimes he has pain in the right side of his chest that he equates to lung pain . 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 On arrival to the ER patient was found to be hypoxic and hypercapnic. Normally wears 2 L oxygen, necessitated BiPAP placement. Chest imaging concerning initially possibly for pneumothorax, CT however shows significant bullous emphysema. Initial workup with tachypnea, white count of 16, consolidation right lower lobe concerning for pneumonia. Medicine consulted to admit for acute on chronic hypoxemic respiratory failure with hypercapnia meeting sepsis criteria. Pulmonology consulted to assist with management. On arrival to the unit, patient has shown some improvement with significant DuoNebs, steroids, magnesium. Responded well to BiPAP therapy. Has weaned to nasal cannula at this time but still requiring more than his baseline oxygen. Necessitating close monitoring due to acute episode of distress. Will continue to monitor stepdown level of care. Patient reports he continues to smoke several cigarettes a day. Previously smoked 1-1/2 packs a day or more for at least 60 years. Hospital Course Hospital Course Hospital Course: Carroll Garcia is a 79-year-old male with stage IV Gold COPD. Presented with acute respiratory failure with hypoxia and hypercarbia. Suspect pneumonia based on imaging along with sepsis based on vital instability. Discussed case with ER physician, request admission for further management. I agreed to admit for further care. Pulmonology was consulted to assist with care. Patient overall did well during admission. Transition to cefdinir to complete 5 days of antibiotics. Will need close follow-up with pulmonology. At baseline oxygen. Strongly encourage smoking. Acute on chronic hypoxemic respiratory failure with acute hypercapnia Right lower lobe pneumonia Gold stage IV severe COPD COPD exacerbation Bullous emphysema ? Initially on BiPAP, weaned to baseline 2-3 L nasal cannula shortly after arrival to the floor. Still had significant wheezing throughout admission but improved to baseline oxygen. Treating with antibiotics and steroids. Initially on ceftriaxone, weaned to cefdinir for discharge at the recommendation of pulmonology to complete 5 days of antibiotics. Transition to 2 prednisone 40 mg daily. Extensive discussion with patient about smoking cessation. Has severe bullous emphysema. Condition likely end-stage, discussed goals of optimizing management and optimizing lung function and the negative impact continuing to smoke while on that. Patient states understanding. Sputum and blood cultures pending. Per review of CT on admission, has severely dilated bulla with his emphysematous changes and severe destruction of lungs. Has focal consolidation and density like appearance in right lower lung concerning for mass versus pneumonia. White count elevated at 16 on admission. Improved to 7.7 by day of discharge. Kidney function at baseline. Hemoglobin 11.6. Will continue supplemental oxygen for goal sats greater 90%. Wears 2 to 3 L at home. Initiated Breztri inhaler 2 puffs twice daily. Patient has nebulizer at home, ordered DuoNebs for use every 4-6 hours as needed. Also has Combivent to use as a rescue inhaler if needed while out and away from his nebulizer. #Physical deconditioning ? PT/OT recommended SNF, patient prefers home health. Discharged with home health at patient's preference. High risk for decompensation and readmission. A-fib Hypertension - Continue Eliquis 5 mg twice daily, Lasix 20 mg daily, metoprolol succinate 50 mg daily BPH: Continue tamsulosin 0.4 mg twice daily Tremor: Continue primidone 50 mg daily Severe protein calorie malnutrition/pulmonary cachexia: Complicates all aspects of his care. High-protein supplementation. Total time spent on discharge 32 minutes in counseling, documentation, chart review, and direct care with patient. Exam Data for Last 24 hours Vital signs and Labs for Last 24 Hours: Temp Pulse Resp BP Pulse Ox O2 Del Method O2 Flow Rate 97.3 F L 76 16 158/81 H 98 Nasal Cannula 2 07/23/24 04:00 07/23/24 04:00 07/23/24 04:00 07/23/24 04:00 07/23/24 06:08 07/23/24 06:30 07/23/24 06:30 FiO2 40 07/20/24 10:20 Laboratory Results - last 24 hr 07/23/24 05:24: WBC 7.7 D, RBC 3.77 L, Hgb 11.6 L, Hct 35.2 L, MCV 93.4, MCH 30.8, MCHC 33.0, RDW 13.3, Plt Count 234, MPV 9.8, Neut % (Auto) 78.7, Lymph % (Auto) 12.7, [place] % (Auto) 8.0, Eos % (Auto) 0.1, Baso % (Auto) 0.1, Neut # (Auto) 6.1, Lymph # (Auto) 1.0, [place] # (Auto) 0.6, Eos # (Auto) 0.0, Baso # (Auto) 0.0, Sodium 134 L, Potassium 4.0, Chloride 96 L, Carbon Dioxide 36 H, Anion Gap 6.0, BUN 26 H, Creatinine 0.90, Estimated Creat Clear 48, Estimated GFR 82, Est GFR ( Amer) 99, Glucose 86, Calcium 9.2, Magnesium 1.9, Total Bilirubin 0.3, AST 27 D, ALT 22, Alkaline Phosphatase 70, Total Protein 6.3, Albumin 3.6, Globulin 2.7, Albumin/Globulin Ratio 1.3 I & O for Last 24 hours: Intake & Output 07/20/24 07/21/24 07/22/24 07/23/24 23:59 23:59 23:59 23:59 Intake Total 240 / 240 1685 / 1785 1200 / 1200 240 / 240 Output Total 500 / 500 1360 / 1360 1900 / 1900 350 / 350 Balance -260 / -260 325 / 425 -700 / -700 -110 / -110 Weight 56.699 kg 57.19 kg 88.36 kg 56.109 kg Microbiology Reports for the Last 24 Hours: Microbiology 07/20/24 11:40 Blood Blood Culture - Preliminary NO GROWTH AFTER 48 HOURS 07/20/24 09:34 Blood Blood Culture - Preliminary NO GROWTH AFTER 48 HOURS 07/20/24 14:50 Sputum - Expectorated Sputum Gram Stain - Final 07/20/24 14:50 Sputum - Expectorated Sputum Sputum Culture - Preliminary Constitutional Constitutional: mild distress, cachectic, chronically ill appearing and cooperative *Routine HEENT Exam Head: Present normocephalic Eye: Present EOMI and PERRL ENT: Present mucous membranes moist *Routine Neck Exam Neck: Present supple; Absent lymphadenopathy Routine Chest/Breast/Axilla Exam Comments: Barrel chested *Routine Respiratory Exam Respiratory: Present decreased breath sounds, prolonged expiratory phase, rhonchi, wheezes and diminished air movement; Absent CTA bilaterally or crackles *Routine Cardiovascular Exam Cardiovascular: Present RRR *Routine Abdominal Exam Abdominal: Present soft and normoactive bowel sounds; Absent tenderness *Routine Rectal Exam Patient deferred: visual exam *Routine Exam Patient deferred: penile exam *Routine Extremities Exam Extremities: Absent cyanosis, clubbing or edema *Routine Skin Exam Skin: Present warm; Absent rash *Routine Neurological Exam Neurological: Present alert, oriented X3, altered mental status and moving all extremities Results Data Completed and Pending Labs on day of discharge: Labs from last 24 hours 07/23/24 05:24 WBC 7.7 D RBC 3.77 L Hgb 11.6 L Hct 35.2 L MCV 93.4 MCH 30.8 MCHC 33.0 RDW 13.3 Plt Count 234 MPV 9.8 Neut % (Auto) 78.7 Lymph % (Auto) 12.7 [place] % (Auto) 8.0 Eos % (Auto) 0.1 Baso % (Auto) 0.1 Neut # (Auto) 6.1 Lymph # (Auto) 1.0 [place] # (Auto) 0.6 Eos # (Auto) 0.0 Baso # (Auto) 0.0 Sodium 134 L Potassium 4.0 Chloride 96 L Carbon Dioxide 36 H Anion Gap 6.0 BUN 26 H Creatinine 0.90 Estimated Creat Clear 48 Estimated GFR 82 Est GFR ( Amer) 99 Glucose 86 Calcium 9.2 Magnesium 1.9 Total Bilirubin 0.3 AST 27 D ALT 22 Alkaline Phosphatase 70 Total Protein 6.3 Albumin 3.6 Globulin 2.7 Albumin/Globulin Ratio 1.3 Preliminary micro results at discharge 07/20/24 11:40 Blood Culture - Preliminary Blood NO GROWTH AFTER 48 HOURS 07/20/24 09:34 Blood Culture - Preliminary Blood NO GROWTH AFTER 48 HOURS 07/20/24 14:50 Sputum Culture - Preliminary Sputum - Expectorated Sputum DS: Diagnosis Discharge Diagnosis (1) Acute and chronic respiratory failure with hypoxia: Status: Acute Code(s): J96.21 - Acute and chronic respiratory failure with hypoxia (2) Sepsis: Status: Acute Code(s): A41.9 - Sepsis, unspecified organism Qualifiers: Acute respiratory failure type: with hypoxia Sepsis acute organ dysfunction status: with acute organ dysfunction Sepsis type: sepsis due to unspecified organism Severe sepsis acute organ dysfunction type: acute respiratory failure Severe sepsis shock status: without septic shock Qualified Code(s): A41.9 - Sepsis, unspecified organism; R65.20 - Severe sepsis without septic shock; J96.01 - Acute respiratory failure with hypoxia (3) Stage 4 very severe COPD by GOLD classification: Status: Acute Code(s): J44.9 - Chronic obstructive pulmonary disease, unspecified (4) Afib: Status: Acute Code(s): I48.91 - Unspecified atrial fibrillation (5) Multiple lung nodules on CT: Status: Chronic Code(s): R91.8 - Other nonspecific abnormal finding of lung field (6) Smoking greater than 30 pack years: Status: Chronic Code(s): F17.210 - Nicotine dependence, cigarettes, uncomplicated (7) GERD (gastroesophageal reflux disease): Status: Acute Code(s): K21.9 - Gastro-esophageal reflux disease without esophagitis (8) Pulmonary cachexia due to COPD: Status: Acute Code(s): R64 - Cachexia; J44.9 - Chronic obstructive pulmonary disease, unspecified (9) Severe protein-calorie malnutrition: Status: Acute Code(s): E43 - Unspecified severe protein-calorie malnutrition (10) Acute exacerbation of chronic obstructive pulmonary disease: Status: Acute Code(s): J44.1 - Chronic obstructive pulmonary disease with (acute) exacerbation (11) Hypertension: Status: Chronic Code(s): I10 - Essential (primary) hypertension Meds Home Medications and Allergies Home Medications ?Medication ?Instructions ?Recorded ?Confirmed ?Type tamsulosin 0.4 mg capsule 0.4 mg PO BID 06/10/20 07/20/24 History apixaban 5 mg tablet 5 mg PO BID 07/24/22 07/21/24 History albuterol sulfate 90 mcg/actuation 2 puff inhalation Q4HP PRN 07/29/23 07/20/24 Rx aerosol inhaler Shortness Of Breath 30 days #8.5 grams pantoprazole 40 mg tablet,delayed 40 mg PO DAILY 30 days #30 tabs 07/29/23 07/20/24 Rx release budesonide 160 mcg-glycopyr 9 2 puff inhalation BID 07/20/24 07/21/24 History mcg-formot 4.8 mcg/actuation HFA inhaler (Breztri Aerosphere) famotidine 40 mg tablet 40 mg PO HS 07/20/24 07/20/24 History furosemide 20 mg tablet 20 mg PO DAILYP PRN fluid retention 07/20/24 07/20/24 History ipratropium 20 mcg-albuterol 100 1 puff inhalation QID 07/20/24 07/20/24 History mcg/actuation mist for inhalation (Combivent Respimat) magnesium oxide 400 mg (241.3 mg 400 mg PO BID 07/20/24 07/20/24 History magnesium) tablet metoprolol succinate 50 mg 50 mg PO DAILY 07/20/24 07/20/24 History tablet,extended release 24 hr prednisone 10 mg tablet 10 - 20 mg PO DAILY 07/20/24 07/20/24 History primidone 50 mg tablet 50 mg PO DAILY 07/20/24 07/20/24 History cefdinir 300 mg capsule 300 mg PO BID #6 caps 07/23/24 Rx ipratropium 0.5 mg-albuterol 3 mg 3 ml inhalation Q6HP PRN Shortness 07/23/24 Rx (2.5 mg base)/3 mL nebulization Of Breath 30 days #180 mL soln prednisone 20 mg tablet 40 mg (2 x 20 mg) PO DAILY 3 days 07/23/24 Rx #6 tabs New Prescriptions to Start Prescriptions: Kurt Reynolds ipratropium-albuterol Kurt Us James Allergies Allergy/AdvReac Type Severity Reaction Status Date / Time No Known Allergies Allergy Verified 07/20/24 13:11 Discharge Plan Disposition Patient Disposition: Home Health Service Condition: Fair Discharge Order Discharge Orders: Discharge Order (Routine); Ordered 07/23/24 Ordered By: Kurt Us Follow up Plan Follow up with: Stephan Mabry MD [Physician] - 08/05/24 1:00 pm Maribeth Mclean APRN [Primary Care Provider] - 07/30/24 11:45 am Prescriptions/Medication Reconciliation: New prednisone 20 mg Tablet 40 mg PO DAILY 3 Days Qty: 6 0RF cefdinir 300 mg capsule 300 mg PO BID Qty: 6 0RF ipratropium-albuterol 0.5 mg-3 mg(2.5 mg base)/3 mL Solution For Nebulization 3 ml inhalation Q6HP PRN (Reason: Shortness Of Breath) 30 Days Qty: 180 0RF Continued tamsulosin 0.4 MG capsule 0.4 mg PO BID apixaban 5 MG tablet 5 mg PO BID pantoprazole 40 mg Tablet,Delayed Release (Dr/Ec) 40 mg PO DAILY 30 Days Qty: 30 0RF albuterol sulfate 90 mcg/actuation HFA aerosol inhaler 2 puff inhalation Q4HP PRN (Reason: Shortness Of Breath) 30 Days Qty: 8.5 0RF metoprolol succinate 50 mg tablet extended release 24 hr 50 mg PO DAILY Patient Comments: TAKE ONE TABLET BY MOUTH ONCE A DAY FOR HYPERTENSION AND A. FIB Breztri Aerosphere 160-9-4.8 mcg/actuation HFA aerosol inhaler 2 puff INHALATION BID Patient Comments: INHALE 2 PUFFS BY MOUTH 2 TIMES A DAY primidone 50 mg tablet 50 mg PO DAILY Patient Comments: TAKE ONE TABLET BY MOUTH ONCE A DAY FOR TREMOR famotidine 40 mg tablet 40 mg PO HS Patient Comments: TAKE ONE TABLET BY MOUTH AT BEDTIME Combivent Respimat 20-100 mcg/actuation mist 1 puff INHALATION QID Patient Comments: INHALE 1 PUFF FOUR TIMES DAILY FOR COPD magnesium oxide 400 mg (241.3 mg magnesium) Tablet 400 mg PO BID furosemide 20 mg tablet 20 mg PO DAILYP PRN (Reason: fluid retention) Held prednisone 10 mg tablet 10 - 20 mg PO DAILY Hold Instructions: resume after completion of 40mg dosage Patient Comments: TAKE 1 TO 2 TABLETS BY MOUTH ONCE A DAY Problem Reconciliation Problems Reviewed?: Yes Patient Discharge Instructions ACTIVITY: Continue current activity DIET: continue same diet Patient Instructions: DI for Chronic Obstructive Pulmonary Disease, DI for Respiratory Failure, Stop Light COPD, Stop Light Heart Failure Print Language: Slovenian Providers Primary Care Provider: Maribeth Mclean Admit Provider: Kurt Us Attending Provider: Kurt Us
--- NOTE | 2024-07-23 08:48 | EXP.PHA.PN ---
Subjective *Date: 07/23/24 *Time: 08:48 Medical Exam Vital signs and Labs for Last 24 Hours: Vital Signs Temp Pulse Pulse Resp BP Pulse Ox O2 Del Method 07/23/24 08:00 98.1 F 80 19 146/84 H 94 L Nasal Cannula 07/23/24 08:00 93 L Nasal Cannula 07/23/24 06:30 Nasal Cannula 07/23/24 06:08 98 Nasal Cannula 07/23/24 05:00 Nasal Cannula 07/23/24 04:00 65 07/23/24 04:00 97.3 F L 76 16 158/81 H 98 Nasal Cannula 07/23/24 03:00 Nasal Cannula 07/23/24 01:00 Nasal Cannula 07/23/24 00:00 65 07/22/24 23:54 97.9 F 71 16 161/94 H 95 Nasal Cannula 07/22/24 23:00 Nasal Cannula 07/22/24 22:46 68 07/22/24 22:46 72 07/22/24 22:46 94 L Nasal Cannula 07/22/24 21:00 Nasal Cannula 07/22/24 20:00 75 07/22/24 20:00 Nasal Cannula 07/22/24 20:00 97.7 F 70 18 153/83 H 97 Nasal Cannula 07/22/24 19:00 Nasal Cannula 07/22/24 17:00 Nasal Cannula 07/22/24 16:00 98.2 F 77 18 166/95 H 98 Nasal Cannula 07/22/24 15:00 Nasal Cannula 07/22/24 13:00 Nasal Cannula 07/22/24 12:00 97.7 F 94 H 17 161/95 H 91 L Nasal Cannula 07/22/24 11:00 Nasal Cannula 07/22/24 10:21 105 H 07/22/24 10:21 112 H 07/22/24 09:00 Nasal Cannula O2 Flow Rate 07/23/24 08:00 2.5 07/23/24 08:00 2.5 07/23/24 06:30 2 07/23/24 06:08 3 07/23/24 05:00 2.5 07/23/24 04:00 07/23/24 04:00 3 07/23/24 03:00 2.5 07/23/24 01:00 2.5 07/23/24 00:00 07/22/24 23:54 3 05/21/25 23:00 2.5 07/22/24 22:46 07/22/24 22:46 07/22/24 22:46 3 07/22/24 21:00 2.5 07/22/24 20:00 07/22/24 20:00 2.5 07/22/24 20:00 3 07/22/24 19:00 3 07/22/24 17:00 3.5 07/22/24 16:00 4 07/22/24 15:00 3.5 07/22/24 13:00 3.5 07/22/24 12:00 3.5 07/22/24 11:00 3 07/22/24 10:21 07/22/24 10:21 07/22/24 09:00 3 Intake and Output 07/22/24 07/23/24 07/23/24 23:59 07:59 15:59 Intake Total 620 / 1200 240 / 240 Output Total 400 / 1900 350 / 350 Balance 220 / -700 -350 / -110 240 / -110 Intake: Intake, Oral Amount 270 / 850 240 / 240 Intake, Total IV Amount 350 / 350 Azithromycin 500 mg In 0.9 % 250 / 250 Sodium Chloride 250 ml @ 250 mls/hr IV Q24H COUNT INCLUDES THE [facility] Rx#:[id number] Ceftriaxone Sodium 2 gm In 0.9 100 / 100 % Sodium Chloride 100 ml @ 200 mls/hr IV Q24H COUNT INCLUDES THE [facility] Rx#:[id number] Output: Output, Urine Amount 400 / 1900 350 / 350 Other: Number of Unmeasured Voids 0 1 Number of Bowel Movements 1 Weight 56.109 kg Patient Weight 07/23/24 23:59 Weight 56.109 kg Laboratory Results - last 24 hr 07/23/24 05:24: WBC 7.7 D, RBC 3.77 L, Hgb 11.6 L, Hct 35.2 L, MCV 93.4, MCH 30.8, MCHC 33.0, RDW 13.3, Plt Count 234, MPV 9.8, Neut % (Auto) 78.7, Lymph % (Auto) 12.7, [place] % (Auto) 8.0, Eos % (Auto) 0.1, Baso % (Auto) 0.1, Neut # (Auto) 6.1, Lymph # (Auto) 1.0, [place] # (Auto) 0.6, Eos # (Auto) 0.0, Baso # (Auto) 0.0, Sodium 134 L, Potassium 4.0, Chloride 96 L, Carbon Dioxide 36 H, Anion Gap 6.0, BUN 26 H, Creatinine 0.90, Estimated Creat Clear 48, Estimated GFR 82, Est GFR ( Amer) 99, Glucose 86, Calcium 9.2, Magnesium 1.9, Total Bilirubin 0.3, AST 27 D, ALT 22, Alkaline Phosphatase 70, Total Protein 6.3, Albumin 3.6, Globulin 2.7, Albumin/Globulin Ratio 1.3 I & O for Labs for Last 24 Hours: Intake & Output 07/20/24 07/21/24 07/22/24 07/23/24 23:59 23:59 23:59 23:59 Intake Total 240 / 240 1685 / 1785 1200 / 1200 240 / 240 Output Total 500 / 500 1360 / 1360 1900 / 1900 350 / 350 Balance -260 / -260 325 / 425 -700 / -700 -110 / -110 Weight 56.699 kg 57.19 kg 88.36 kg 56.109 kg Microbiology Reports for the Last 24 Hours: Microbiology 07/20/24 11:40 Blood Blood Culture - Preliminary NO GROWTH AFTER 48 HOURS 07/20/24 09:34 Blood Blood Culture - Preliminary NO GROWTH AFTER 48 HOURS 07/20/24 14:50 Sputum - Expectorated Sputum Gram Stain - Final 07/20/24 14:50 Sputum - Expectorated Sputum Sputum Culture - Preliminary The patient's infection will respond to the chosen ABx?: Yes Is the patient receiving the right drug, dose, and route?: Yes Could a more targeted ABx be ordered?: No (WBC WNL, DOWN FROM ADMISSION, AFEBRILE.)
--- NOTE | 2024-07-23 09:48 | HMH.PTEV ---
Physical Therapy Evaluation Rehab PT IP Evaluation Start: 07/21/24 09:22 Freq: ONCE Status: Active Protocol: Document 07/21/24 10:21 CHAPIN (Rec: 07/21/24 10:29 PHOSHIRA [id number]) Subjective/History History History 79-year-old male with emphysema, A-fib, pulmonary cachexia on chronic oxygen therapy. He presented to the ED with complaint of shortness of breath that worsened this morning at 430 acutely. Had a cough, mildly productive. Denies fever, nausea, vomiting . States that sometimes he has pain in the right side of his chest that he equates to lung pain . Reports a history of histoplasmosis [facility]. On arrival to the ER patient was found to be hypoxic and hypercapnic. Normally wears 2 L oxygen, necessitated BiPAP placement. Chest imaging concerning initially possibly for pneumothorax, CT however shows significant bullous emphysema . Initial workup with tachypnea, white count of 16, consolidation right lower lobe concerning for pneumonia. Medicine consulted to admit for acute on chronic hypoxemic respiratory failure with hypercapnia meeting sepsis criteria. Pulmonology consulted to assist with management. Subjective Subjective Pt reports he lives alone, 2 [address] the home, and he is generally independent with all mobility at home, although only walking 5-10 ft at most for baseline. He reports, I just can't get my breath, it takes me forever to do anything. He is only 2 L/min [place] O2 at this time which is his baseline at home. [facility] How much help from another person do you currently need... Turning from your back to your side None while in a flat bed without using bedrails? Moving from lying on back to sitting on None the side of a flat bed without using bedrails? Moving to and from a bed to a chair ( None including a wheelchair)? Standing up from a chair using your arms None ? (e.g., wheelchair, bedside chair) Walking in hospital room? A little Climbing 3-5 steps with a railing? A little Mobility Score 22 Mobility Level [facility] Mobility Calculator Mobility 7 Walk 25 feet or more Rehab PT IP Eval Objective Appearance Patient Behavior Appropriate Patient Orientation Person,Place,Time Difficulty following instructions none Speech Pattern Clear Ambulation Patient Able to Ambulate No Balance Ability to Arise Able, uses arms to help Sitting Balance Steady, safe Standing Balance Steady, wide stance Dynamic Sitting Balance Ability Good Dynamic Standing Balance Ability Good Transfers Bed Transfer Ability Independent Chair Transfer Ability Independent Sit to Stand Bed Transfer Ability Supervision/Stand by Sit to Stand Chair Transfer Ability Supervision/Stand by ROM All Extremities PT ROM Status WFL MMT All Extremities PT MMT WFL Rehab PT IP prob,goals,plan Problems Date of Evaluation: 07/21/24 PT IP Problems Transfers,Gait Rehab Potential Rehab Potential Good Plan PT Intervention Plan Transfers,Gait,Therapeutic Exercise PT Plan Frequency Daily Duration LOS Discharge Goals Sit to Stand Chair Transfer Ability Independent Ambulation Assistive Device Rolling Walker Ambulation Distance (feet) 10 Discharge Plan PT Discharge Plan Pt is most appropriate at this time for rehab placement once medically stable, however, if he has 24/hr assistance available he may be able to return home once medically stable. Skilled therapy remains indicated to improve general mobility and ambulation in order to aid pt return to [facility]. Eval Complexity Eval Charge Codes 57417 - High Complexity PHYSICIAN CERTIFICATION: I certify the specified therapy services for Carroll Garcia are required, authorized, and reviewed every 30 days.
[2024-07-23] MEDS: IPRATROPIUM/ALBUTEROL 3 ML NEB IH (10:38)
[2024-07-23 10:39] VITALS: PULSE 73; PULSE 78; O2SAT 90
[2024-07-23] MEDS: AZITHROMYCIN 250MG TABLET 500 MG PO (10:48)
[2024-07-23] MEDS: CEFTRIAXONE SODIUM 2 GM in 0.9 % SODIUM CHLORIDE 100 ML IV (10:48)
[2024-07-23 12:00] VITALS: PULSE 80
--- NOTE | 2024-07-24 09:51 | SW/DCPLANNER ---
Spoke with patient on the phone. Patient stated that he has had a rough morning. Patient stated that he cant catch his breath and is having a hard time getting up the phlem. Patient stated that he is aware of his upcoming appointments. Patient stated that he was able to get his medicine picked up from clinic pharmacy. Patient stated that he has no concerns or questions at this time. Carrol Mills
== END 2024-07-23 13:45 | disposition home health service (06) | DRG 871 ==
LOC: ER 12:11 → ICU 12:32 → 2ND 07-21 19:30
PROVIDERS: Internal Medicine Pulmonary Disease; Nurse Practitioner Acute Care; Student in an Organized Health Care Education/Training Program; Admitting Provider Internal Medicine Adolescent Medicine; Emergency Provider Student in an Organized Health Care Education/Training Program; PCP Nurse Practitioner Family; Visit Provider Internal Medicine Adolescent Medicine
DX: A41.9 Sepsis, unspecified organism (principal); E43 Unspecified severe protein-calorie malnutrition; J96.22 Acute and chronic respiratory failure with hypercapnia; J96.21 Acute and chronic respiratory failure with hypoxia; J18.9 Pneumonia, unspecified organism; J44.1 Chronic obstructive pulmonary disease with (acute) exacerbation; Z68.1 Body mass index [BMI] 19.9 or less, adult; F17.210 Nicotine dependence, cigarettes, uncomplicated; R65.20 Severe sepsis without septic shock; I48.91 Unspecified atrial fibrillation; E88.A Wasting disease (syndrome) due to underlying condition; D64.9 Anemia, unspecified; Z99.81 Dependence on supplemental oxygen; J43.8 Other emphysema; I10 Essential (primary) hypertension; N40.0 Benign prostatic hyperplasia without lower urinary tract symptoms; F10.21 Alcohol dependence, in remission; K21.9 Gastro-esophageal reflux disease without esophagitis; Z90.49 Acquired absence of other specified parts of digestive tract; Z82.5 Family history of asthma and other chronic lower respiratory diseases; Z82.49 Family history of ischemic heart disease and other diseases of the circulatory system; Z84.89 Family history of other specified conditions; Z83.438 Family history of other disorder of lipoprotein metabolism and other lipidemia; R91.8 Other nonspecific abnormal finding of lung field; R25.1 Tremor, unspecified; R63.0 Anorexia; R60.9 Edema, unspecified; Z79.01 Long term (current) use of anticoagulants; Z79.52 Long term (current) use of systemic steroids; Z79.899 Other long term (current) drug therapy
CPT/HCPCS: 36415; 51702; 71045; 71275; 80053; 81001; 82803; 83605; 83735; 84484; 85007; 85025; 85378; 85384; 85610; 85730; 86803; 87040; 87070; 87077; 87081; 87086; 87186; 87205; 87389; 87633; 87636; 93005; 94640; 94660; 94667; 94761; 97110; 97116; 97163; 97166; 97530; 99285; J0456; J0696; J2919; J3475; J7050; J7620; Q9967

== ENCOUNTER 2024-12-19 23:57 | Inpatient (IN) | payer OTHER, MEDICARE, SELFPAY ==
--- OUTSIDE RECORDS SUMMARY | 2024-06-06 17:30 | XMS_ITS ---
Author Organization [facility] Address [address] [place] [address] Care Team Providers Care Typewriter Assembly And Parts Inspector Name Role Phone Maribeth Mclean Primary Care Provider MARIBETH MCLEAN Unavailable Unavaila ble Migration, Provider Unavailable Unavailable REAS[facility] FOR VISIT [facility] Encounter Medications Medication SIG (Take, Route, Frequency, Duration) Notes Start Date End Date Status Rosuvastatin Calcium 20 MG 1/2 tab orally at bedtime Active Finasteride 5 MG 1 tab(s) orally once a day Active Breztri Aerosphere 160 MCG-4.8 MCG-9 MCG/INH 2 PUFF(S) INHALED 2 TIMES A DAY *Please review and pick correct strength-[facility]ulati [facility]. If intended option is not shown, [...] Active Encounters Encounter Location Date Provider Diagnosis [facility] [place] [address] [place], [place] [address] 06/06/2024 Provider Migration Paroxysmal atrial fibrillation I48.0 [...] Notes * Carroll GARCIADOB:1945 (79 yo M)Acc No.[id number]:06/06/2024 Patient: Carroll KEMP Provider: Reed reddy Migration :1945 A ge:79 Y S ex:Male Date:06/06/2024 Address:[address], [facility], [id number] Pcp:Maribeth Mclean Subjective: * Chief Complaints: * [facility] . [facility] * Medical History: * Medications: T aking Ohtuvayre 3 MG/2.5ML Suspension as directed by nebulizer 2 times a day , Taking Amoxicillin-Pot Clavulanate 875-125 MG Tablet 1 tab(s) orally every 12 hours , Taking Breztri Aerosphere 160 MCG-4.8 MCG-9 MCG/INH AEROSOL 2 PUFF(S) INHALED 2 TIMES A DAY , Notes to Pharmacist: *Please review and pick correct strength-formulation from [facility] options. If intended option is not shown, [...] Electronic signature of Prov ider Migration on 12/20/2024 at 12:30 AM EDT Sign off status: Pending * Provider: Reed reddy Migration Date: 0 06/06/2024 Generated for Ness thornton/Barrera/Ericitting on: 1 12:30 AM EDT
--- OUTSIDE RECORDS SUMMARY | 2024-06-06 17:30 | XMS_ITS ---
Author Organization [facility] Address [address] [place] [address] Care Team Providers Care Nut Sifter Name Role Phone Maribeth Mclean Primary Care Provider MARIBETH MCLEAN Unavailable Unavaila ble Migration, Provider Unavailable Unavailable REASON FOR VISIT [facility] Encounter Medications Medication SIG (Take, Route, Frequency, Duration) Notes Start Date End Date Status Rosuvastatin Calcium 20 MG 1/2 tab orally at bedtime Active Finasteride 5 MG 1 tab(s) orally once a day Active Breztri Aerosphere 160 MCG-4.8 MCG-9 MCG/INH 2 PUFF(S) INHALED 2 TIMES A DAY *Please review and pick correct strength-formulati on from [facility] options. If intended option is not shown, [...] Active Encounters Encounter Location Date Provider Diagnosis [facility] [address] [place], [place] [address] 06/06/2024 Provider Migration Paroxysmal atrial fibrillation I48.0 [...] Notes * Carroll GARCIADOB:1945 (79 yo M)Acc No.[id number]:06/06/2024 Patient: Carroll KEMP Provider: Reed reddy Migration :1945 A ge:79 Y S ex:Male Date:06/06/2024 Address:[address], [facility], [id number] Pcp:Maribeth Mclean Subjective: * Chief Complaints: * [facility] * Medical History: * Medications: T aking Ohtuvayre 3 MG/2.5ML Suspension as directed by nebulizer 2 times a day , Taking Amoxicillin-Pot Clavulanate 875-125 MG Tablet 1 tab(s) orally every 12 hours , Taking Breztri Aerosphere 160 MCG-4.8 MCG-9 MCG/INH AEROSOL 2 PUFF(S) INHALED 2 TIMES A DAY , Notes to Pharmacist: *Please review and pick correct strength-formulation from [facility] options. If intended option is not [...] Electronic signature of Prov ider Migration on 12/21/2024 at 07:45 AM EDT Sign off status: Pending * Provider: Reed reddy Migration Date: 0 06/06/2024 Generated for Ness thornton/Barrera/Pablo on: 1 07:45 AM EDT
--- OUTSIDE RECORDS SUMMARY | 2024-11-17 10:00 | XMS_ITS ---
Author Organization [facility] Address [address] [place] [address] Care Team Providers Care Upper Trimmer Name Role Phone Jodi Mclean Primary Care [...] Active Encounters Encounter Location Date Provider Diagnosis [facility] [place] [address] [facility] [address] [place], [place] [address] 11/17/2024 Jodi Mclean Peripheral edema R60 .0 [...] time he is out for FU with knot saw operator 11/17/2024 Benign prostatic hyperplasia with lower [...] Next Appt Details Follow Up: 4 Months,prn, [place] son: Progress Notes * Carroll GARCIADOB:1945 (79 yo M)Acc No.[id number]:11/17/2024 Home Visit Patient: Carroll KEMP Provider: DEBORAH Cuevas :1945 A ge:79 Y S ex:Male Date:11/17/2024 Address:[address], [place] [facility], [id number] Subjective: * Chief Complaints: * 1 . Home visit. * HPI: g en: 79-year-old male seen today in his home for routine 4 month chronic disease FU. Denies acute concerns. He has in-home help twice a week (shopping, cleaning, etc.) Not smoking. Drinking alcohol only once on the weekends most weeks. Last acute care admission was at [facility] about 4 months ago for COPD exacerbation and pneumonia. Still using his oxygen continuously 2.5L, nebulizer as needed. Following with pulm at [facility]. Appetite is improving/stable following recent dental extractions. [...] *Please review and pick correct strength-formulation from [employer] options. If intended option is not shown, [...] time he is out for FU with knot saw operator 7. B enign prostatic hyperplasia with [...] 11/17/2024 Generated for Ness thornton/Barrera/Pablo on: 1 12:29 AM EDT History and Physical Notes * HPI (History of Present Illness) Category Sub-Category Detail Notes Category Not es gen 79-year-old male seen today in his home for routine 4 month chronic disease FU. Denies acute concerns. He has in-home help twice a week (shopping, cleaning, etc.) Not smoking. Drinking alcohol only once on the weekends most weeks. Last acute care admission was at [facility] about 4 months ago for COPD exacerbation and pneumonia. Still using his oxygen continuously 2.5L, nebulizer as needed. Following with pulm at [facility]. Appetite is improving/stable following recent dental extractions. [...]
--- OUTSIDE RECORDS SUMMARY | 2024-11-17 10:00 | XMS_ITS ---
Author Organization [facility] Address [address] [place] [address] Care Team Providers Care Transliterator Name Role Phone Jodi Mclean Primary Care [...] Active Encounters Encounter Location Date Provider Diagnosis [facility] [place] [address] [facility] [address] [place], [place] [address] 11/17/2024 Jodi Mclean Peripheral edema R60 .0 [...] time he is out for FU with respiratory technician 11/17/2024 Benign prostatic hyperplasia with lower urinary [...] Next Appt Details Follow Up: 4 Months,prn, [place] son: Progress Notes * Carroll GARCIADOB:1945 (79 yo M)Acc No.[id number]:11/17/2024 Home Visit Patient: Carroll KEMP Provider: DEBORAH Cuevas :1945 A ge:79 Y S ex:Male Date:11/17/2024 Address:[address], [place] [facility], [id number] Subjective: * Chief Complaints: * 1 . Home visit. * HPI: g en: 79-year-old male seen today in his home for routine 4 month chronic disease FU. Denies acute concerns. He has in-home help twice a week (shopping, cleaning, etc.) Not smoking. Drinking alcohol only once on the weekends most weeks. Last acute care admission was at [facility] about 4 months ago for COPD exacerbation and pneumonia. Still using his oxygen continuously 2.5L, nebulizer as needed. Following with pulm at [facility]. Appetite is improving/stable following recent dental [...] *Please review and pick correct strength-formulation from [employer] options. If intended option is not shown, [...] time he is out for FU with respiratory technician 7. B enign prostatic hyperplasia with lower [...] 11/17/2024 Generated for Ness thornton/Barrera/Pablo on: 1 07:45 AM EDT History and Physical Notes * [...] weeks. Last acute care admission was at [facility] about 4 months ago for COPD exacerbation and pneumonia. Still using his oxygen continuously 2.5L, nebulizer as needed. Following with pulm at [facility]. Appetite is improving/stable following recent dental [...]
[2024-12-20] VITALS (73 sets, daily range): BP systolic 114–189; BP diastolic 54–98; PULSE 61–101; RESP 11–26; TEMP 36.6–37.2; O2SAT 86–99; BMI 19.9; BMI 19.3
--- NOTE | 2024-12-20 00:03 | ECG_ITS ---
APPROVED REPORT Exam: Resting ECG HR:80 bpm ECG Measurements Heart Rate 80 AXES NC 127 P 79 QRSd 102 QRS 87 QT 411 T 74 QTc 446 Conclusion SINUS RHYTHM WITH SINUS ARRHYTHMIA NORMAL ECG No STEMI Electronically signed by : JIM ROSA, 12/20/2024 06:44:51
--- NOTE | 2024-12-20 00:03 | CT_ITS ---
PROCEDURE INFORMATION: Exam: CT Cervical Spine Without Contrast Exam date and time: 12/20/2024 1:13 AM Age: 79 years old Clinical indication: Injury or trauma; Fall; Blunt trauma; Additional info: Fall on thinners TECHNIQUE: Imaging protocol: Computed tomography of the cervical spine without contrast. Radiation optimization: All CT scans at this facility use at least one of these dose optimization techniques: automated exposure control; mA and/or kV adjustment per patient size (includes targeted exams where dose is matched to clinical indication); or iterative reconstruction. COMPARISON: CT HEAD/BRAIN WO CON 12/20/2024 1:02 AM FINDINGS: Bones: No acute fracture. Normal alignment. Multilevel degenerative disc disease with multilevel disc height narrowing endplate sclerosis and disc osteophyte complexes and facet joint arthropathy resulting in the moderate to severe degrees of neuroforaminal and central canal narrowing. Lungs: A large bulla in the right lung apex. Severe pleural and parenchymal scarring in the lung apices. Soft tissues: Unremarkable. IMPRESSION: No acute cervical spine fracture.
--- NOTE | 2024-12-20 00:03 | CT_ITS ---
PROCEDURE INFORMATION: Exam: CTA Chest With Contrast Exam date and time: 12/20/2024 1:17 AM Age: 79 years old Clinical indication: Injury or trauma; Fall; Shortness of breath; Blunt trauma (contusions or hematomas); Additional info: Fall on thinners, cough, SOA, copd TECHNIQUE: Imaging protocol: Computed tomographic angiography of the chest with contrast. Exam focused on the arteries. 3D rendering (Not supervised by radiologist): MIP and/or 3D reconstructed images were created by the technologist. Radiation optimization: All CT scans at this facility use at least one of these dose optimization techniques: automated exposure control; mA and/or kV adjustment per patient size (includes targeted exams where dose is matched to clinical indication); or iterative reconstruction. Contrast material: ISOUVE 370; Contrast volume: 70 ml; Contrast route: INTRAVENOUS (IV); COMPARISON: CT ANGIO CHEST PE PROTOCOL 07/20/2024 11:27 AM FINDINGS: Pulmonary arteries: Normal. No pulmonary emboli. Aorta: Severe atherosclerotic disease of the aorta. Lungs: Similar-appearing chronic findings of COPD, fibrosis, bullae formation. Superimposed granulomas of the anterior right lung. Pleural spaces: Unremarkable. No pneumothorax. No pleural effusion. Heart: Unremarkable. No cardiomegaly. No pericardial effusion. Coronary arteries: Severe coronary calcified atherosclerotic disease. Lymph nodes: Unremarkable. No enlarged lymph nodes. Bones/joints: Old T8 compression deformity. Old right lateral rib fracture deformities of 6th, 7th, 8th ribs. Old rib fracture deformities of the posterior right 11th, 10th, 9th, 8th ribs. Old rib fracture deformity of the left posterior 10th rib. Soft tissues: Cachexia. Other findings: No new nodules or concerning masses. IMPRESSION: No acute findings.
--- NOTE | 2024-12-20 00:03 | XR_ITS ---
PROCEDURE INFORMATION: Exam: XR Pelvis Exam date and time: 12/20/2024 12:31 AM Age: 79 years old Clinical indication: Pelvic pain; Additional info: Fall earlier today, pain posterior L hip, walking TECHNIQUE: Imaging protocol: Radiologic exam of the pelvis. Views: 1 or 2 view. COMPARISON: No relevant prior studies available. FINDINGS: Bones/joints: Demineralized bones. No acute fracture. Soft tissues: Unremarkable. Other findings: Patient is rotated which results in incomplete assessment. IMPRESSION: Limited assessment due to patient rotation. If there is point tenderness, consider cross-sectional imaging for further assessment.
--- NOTE | 2024-12-20 00:03 | XR_ITS ---
PROCEDURE INFORMATION: Exam: XR Chest Exam date and time: 12/20/2024 12:31 AM Age: 79 years old Clinical indication: Cough and shortness of breath; Additional info: SOA copd cough TECHNIQUE: Imaging protocol: Radiologic exam of the chest. Views: 1 view. COMPARISON: CT ANGIO CHEST PE PROTOCOL 07/20/2024 11:27 AM FINDINGS: Lungs: COPD and fibrotic changes of the chest. Multifocal bullae. Pleural spaces: Unremarkable. No pleural effusion. No pneumothorax. Heart/Mediastinum: Unremarkable. No cardiomegaly. Vasculature: Atherosclerotic disease of the aortic arch. Bones/joints: Chronic appearing right lateral rib fracture deformities. IMPRESSION: No definitive acute cardiopulmonary findings. Consider CT for further assessment.
--- NOTE | 2024-12-20 00:03 | CT_ITS ---
PROCEDURE INFORMATION: Exam: CT Head Without Contrast Exam date and time: 12/20/2024 1:02 AM Age: 79 years old Clinical indication: Injury or trauma; Fall; Blunt trauma (contusions or hematomas); Additional info: Fall on thinners TECHNIQUE: Imaging protocol: Computed tomography of the head without contrast. Radiation optimization: All CT scans at this facility use at least one of these dose optimization techniques: automated exposure control; mA and/or kV adjustment per patient size (includes targeted exams where dose is matched to clinical indication); or iterative reconstruction. COMPARISON: CT HEAD/BRAIN WO CON 06/10/2020 7:00 PM FINDINGS: Brain: Atrophy and chronic small vessel ischemic changes. No hemorrhage. No mass effect or midline shift. Stable mild hyperdensity along the anterior and posterior interhemispheric fissure unchanged from 06/10/2020. Cerebral ventricles: No ventriculomegaly. Paranasal sinuses: Visualized sinuses are unremarkable. No fluid levels. Mastoid air cells: Visualized mastoid air cells are well aerated. Bones: Unremarkable. No acute fracture. The postsurgical changes in the anterior wall of the left maxillary sinus. Soft tissues: Unremarkable. IMPRESSION: Chronic changes in the brain but no acute intracranial abnormality.
--- NOTE | 2024-12-20 00:08 | [facility].EDCP ---
Discharge Plan Disposition Patient Disposition: Admitted Prescriptions Prescriptions: No Action finasteride 5 mg tablet 5 mg PO DAILY tamsulosin 0.4 MG capsule 0.4 mg PO BID apixaban 5 MG tablet 5 mg PO BID pantoprazole 40 mg Tablet,Delayed Release (Dr/Ec) 40 mg PO DAILY 30 Days Qty: 30 0RF albuterol sulfate 90 mcg/actuation HFA aerosol inhaler 2 puff inhalation Q4HP PRN (Reason: Shortness Of Breath) 30 Days Qty: 8.5 0RF metoprolol succinate 50 mg tablet extended release 24 hr 50 mg PO DAILY Patient Comments: TAKE ONE TABLET BY MOUTH ONCE A DAY FOR HYPERTENSION AND A. FIB Breztri Aerosphere 160-9-4.8 mcg/actuation HFA aerosol inhaler 2 puff INHALATION BID Patient Comments: INHALE 2 PUFFS BY MOUTH 2 TIMES A DAY primidone 50 mg tablet 50 mg PO DAILY Patient Comments: TAKE ONE TABLET BY MOUTH ONCE A DAY FOR TREMOR famotidine 40 mg tablet 40 mg PO HS Patient Comments: TAKE ONE TABLET BY MOUTH AT BEDTIME Combivent Respimat 20-100 mcg/actuation mist 1 puff INHALATION QID Patient Comments: INHALE 1 PUFF FOUR TIMES DAILY FOR COPD magnesium oxide 400 mg (241.3 mg magnesium) Tablet 400 mg PO BID furosemide 20 mg tablet 20 mg PO DAILYP PRN (Reason: fluid retention) ipratropium-albuterol 0.5 mg-3 mg(2.5 mg base)/3 mL Solution For Nebulization 3 ml inhalation Q6HP PRN (Reason: Shortness Of Breath) 30 Days Qty: 180 0RF Referrals Follow up/Referrals: ProviderMary MD [Primary Care Provider, Medical] - See instructions Byron Rios MD [Staff Physician, Urology] - See instructions Referral Note: follow up abnormality in bladder seen on CT Clinical Impressions Clinical Impression: Sepsis, Acute exacerbation of chronic obstructive airways disease Print Language Print Language: Uzbek Discharge ED Provider: Lit Loev General Chief Complaint: Shortness of Breath/Dyspnea Stated Complaint: SOA Time Seen by Provider: 12/20/24 00:03 Mode of Arrival: EMS Source of Information: Patient and EMS Description of Symptoms (Recalled from ER Triage Doc. by RN): pt presents for evasl of SOA with productive cough that began approx 7 days ago with worsening tonight. Pt reports associated dizziness that has caused him to fall this AM with pain to left hip and left wrist. Pt reports COPD HX with home 02 use, ems reports O2 sat on baseline 2L NC was 85%. Pt aox4, NAD noted, RR even and slightly labored. History of Present Illness HPI narrative: 79-year-old male presents to the ER with shortness of breath, productive cough, shortness of breath when laying down, and lightheadedness when going from laying or sitting to standing. All of his symptoms have progressed over the last 7 days. Patient has a history of COPD typically on 2-1/2 L at home but when EMS found him today on his home 2.5 L nasal cannula he was 85%. Patient states he takes a water pill if needed but has not had to take it recently since he has not noticed swelling in the legs. He reports no fevers or chills. He states he did have a fall this morning when he tried to get out of bed. He states he sat on the side of the bed but when he stood up he got lightheaded and fell to the ground. He denies hitting his head or losing consciousness but does take Eliquis for atrial fibrillation. He denies headache, numbness, tingling, weakness. He states since the fall he has had some pain in the back of the left hip but has been able to ambulate. He also states he had a small cut on his left wrist after falling and he has this wrapped. He is able to fully move the left wrist and hand. He denies abdominal pain, nausea, vomiting, or diarrhea. Denies fevers or chills. Denies known sick exposure. EMS reports during transportation they increased his oxygen to 4 L and his oxygen saturation improved, they administered 1 albuterol treatment and 125 mg Solu-Medrol. Related Data Home Medications ?Medication ?Instructions ?Recorded ?Confirmed tamsulosin 0.4 mg capsule 0.4 mg PO BID 06/10/20 07/20/24 apixaban 5 mg tablet 5 mg PO BID 07/24/22 07/21/24 budesonide 160 mcg-glycopyr 9 2 puff inhalation BID 07/20/24 07/21/24 mcg-formot 4.8 mcg/actuation HFA inhaler (Breztri Apprendaphere) famotidine 40 mg tablet 40 mg PO HS 07/20/24 07/20/24 furosemide 20 mg tablet 20 mg PO DAILYP PRN fluid retention 07/20/24 07/20/24 ipratropium 20 mcg-albuterol 100 1 puff inhalation QID 07/20/24 07/20/24 mcg/actuation mist for inhalation (Combivent Respimat) magnesium oxide 400 mg (241.3 mg 400 mg PO BID 07/20/24 07/20/24 magnesium) tablet metoprolol succinate 50 mg 50 mg PO DAILY 07/20/24 07/20/24 tablet,extended release 24 hr primidone 50 mg tablet 50 mg PO DAILY 07/20/24 07/20/24 finasteride 5 mg tablet 5 mg PO DAILY 08/05/24 08/05/24 Previous Rx's ?Medication ?Instructions ?Recorded albuterol sulfate 90 mcg/actuation 2 puff inhalation Q4HP PRN 07/29/23 aerosol inhaler Shortness Of Breath 30 days #8.5 grams pantoprazole 40 mg tablet,delayed 40 mg PO DAILY 30 days #30 tabs 07/29/23 release ipratropium 0.5 mg-albuterol 3 mg 3 ml inhalation Q6HP PRN Shortness 07/23/24 (2.5 mg base)/3 mL nebulization Of Breath 30 days #180 mL soln Allergies Allergy/AdvReac Type Severity Reaction Status Date / Time No Known Allergies Allergy Verified 08/05/24 12:54 [facility] Disclaimer: The information contained in this section may have been updated after the patient was seen, as this information can be updated by other users. Medical History Encounter for screening for malignant neoplasm of lung Alcohol withdrawal seizure Anemia Multiple lung nodules on CT COPD mixed type Smoking greater than 30 pack years Pulmonary emphysema Appendicitis History of prostate disorder GERD (gastroesophageal reflux disease) Hypertension Afib COPD (chronic obstructive pulmonary disease) Surgical History H/O foot surgery History of appendectomy Family History Other Family history of COPD (chronic obstructive pulmonary disease) Family history of hyperlipidemia Family history of hypertension Family history of myocardial infarction Social History (Updated 08/05/24 @ 13:05 by JACK Kruger Smoking Status: Current every day smoker tobacco type: cigarettes packs per day: 1 pack-years: 62 alcohol intake: former substance use type: denies use current occupational status: retired Travel in the last 8 weeks?: None Other Medical History Have you received the Flu Vaccine for this season: No Have you received the Pneumonia Vaccine: Yes ROS Obtained: Yes Systems reviewed as appropriate & no additional complaints except as documented per HPI Physical Exam General General appearance: alert and cachectic Comment: Chronically ill-appearing Head Head exam: atraumatic and normocephalic Eye Eye exam: Present PERRL and EOMI ENT ENT exam: Present mucous membranes moist Neck Neck exam: Present normal inspection and full ROM; Absent tenderness Chest Chest inspection: Present symmetric chest wall rise; Absent tenderness Respiratory Respiratory exam: Present respiratory distress (Mildly tachypneic with mild respiratory distress, accessory muscle use, prolonged expiratory phase with diminished breath sounds throughout), wheezes (Diffuse, faint, diminished breath sounds throughout), accessory muscle use and prolonged expiratory phase; Absent stridor Cardiovascular Cardiovascular exam: Present regular rate and normal rhythm Abdominal Exam Abdominal exam: Present soft; Absent distention or tenderness Extremities Exam Extremities exam: Present normal capillary refill, edema (1-2+ bilateral lower extremity pitting edema) and other (Pelvis stable, no tenderness over the hips, curved laceration/skin tear approximately 2 cm in length over the radial aspect of the left wrist which is not gaping, hemostatic; full range of motion of the left wrist and hand, ROM left hip normal); Absent joint swelling Back Exam Back exam: Absent tenderness Neurological Exam Neurological exam: Present alert and oriented X3; Absent motor sensory deficit Psychiatric Psychiatric exam: Present normal affect and normal mood Skin Skin exam: Present warm and dry HEART Score HEART Score HEART Score assessment performed?: Yes History (anamnesis): Slightly suspicious ECG: Normal Age: >65 years Risk factors: 3 or more risk factors Troponin: </= normal limit HEART Score: 4 Critical Care Critical Care Time Critical Care Time: Yes Attestation: On 12/19/24, the high probability of a clinically significant, sudden or life threatening deterioration of the following system(s) required my full and direct attention, intervention and personal management. The time I documented below is in addition to time spent performing reported procedures but includes the following listed in this critical care notation. Total Time Total Critical Care Time: 45 Medical Decision Making Medical Records Medical records reviewed: Yes I reviewed the patient's medical records. MR Comment: Most recent pulmonology note from August 2024 reviewed by me demonstrates patient have been discharged from his last hospitalization on cefdinir changed to Levaquin with sputum cultures growing Pseudomonas. Reportedly compliant with Breztri inhaler, [id number] smoking history, walk test had to be aborted early due to shortness of breath and desaturation. 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 Mitchell Inquiry Pt receiving controlled substance: No Vital Signs Vital Signs: 12/20/24 00:04 12/20/24 00:24 12/20/24 00:31 Temperature 98.9 F Temperature Source Oral Pulse Rate 88 74 Pulse Rate [Radial] 81 Respiratory Rate 26 H 23 22 Blood Pressure 158/89 H 138/72 Blood Pressure [Right Arm] 162/64 H Blood Pressure Mean [Right Arm] 96 Blood Pressure Position Blood Pressure Position [Right Arm] Sitting 02 Sat by Pulse Oximetry 97 95 98 Oxygen Delivery Method Nasal Cannula Oxygen Flow Rate (LPM) 4 12/20/24 00:40 12/20/24 00:53 12/20/24 00:54 Temperature Temperature Source Pulse Rate 83 93 H 99 H Pulse Rate [Radial] Respiratory Rate 23 24 Blood Pressure 114/62 114/62 Blood Pressure [Right Arm] Blood Pressure Mean [Right Arm] Blood Pressure Position Sitting Blood Pressure Position [Right Arm] 02 Sat by Pulse Oximetry 97 98 Oxygen Delivery Method BiPAP Oxygen Flow Rate (LPM) 12/20/24 01:22 12/20/24 01:30 Temperature Temperature Source Pulse Rate 86 84 Pulse Rate [Radial] Respiratory Rate 15 18 Blood Pressure 114/73 129/68 Blood Pressure [Right Arm] Blood Pressure Mean [Right Arm] Blood Pressure Position Blood Pressure Position [Right Arm] 02 Sat by Pulse Oximetry 92 L 95 Oxygen Delivery Method Oxygen Flow Rate (LPM) Lab Data Labs: Lab Results 12/20/24 00:04: WBC 12.1 H, RBC 4.37 L, Hgb 13.0 L, Hct 41.0 L, MCV 93.8, MCH 29.7, MCHC 31.7 L, RDW 13.6, Plt Count 229, MPV 9.3, Neut % (Auto) 83.4 H, Lymph % (Auto) 10.4, [place] % (Auto) 5.4, Eos % (Auto) 0.1, Baso % (Auto) 0.2, Neut # (Auto) 10.1 H, Lymph # (Auto) 1.3, [place] # (Auto) 0.7, Eos # (Auto) 0.0, Baso # (Auto) 0.0, Sodium 134 L, Potassium 4.5, Chloride 94 L, Carbon Dioxide 32 H, Anion Gap 12.5, BUN 18, Creatinine 0.90, Estimated Creat Clear 53, Estimated GFR 82, Est GFR ( Amer) 99, Glucose 96, Lactate 1.7, Calcium 8.7, Total Bilirubin 0.6, AST 28, ALT 24, Alkaline Phosphatase 95, Troponin I < 0.01, NT-Pro-B Natriuret Pep 275, Total Protein 7.0, Albumin 4.1, Globulin 2.9, Albumin/Globulin Ratio 1.4 12/20/24 00:12: VBG pH 7.24 L, VBG pCO2 66.0 H, VBG pO2 34.6, VBG HCO3 27.4, VBG Total CO2 29.4 H, VBG O2 Saturation 61.4, VBG Base Excess -0.1, VBG Lactic Acid 1.8 12/20/24 00:04 12/20/24 00:04 Response Orders (Tests/Meds): ED MEDICATIONS Discontinued Medications Generic Name Dose Route Start Last Admin Trade Name Panchitoq PRN Reason Stop Dose Admin Aspirin 324 mg 12/20/24 00:03 12/20/24 00:21 Aspirin 81mg Chewable Tablet PO 12/20/24 00:04 324 mg ONCE ONE Administration Lactated Ringer's 1,000 mls @ 999 mls/hr 12/20/24 00:26 12/20/24 01:44 Lactated Ringer's 1000 Ml Bag IV 12/20/24 01:26 Infused .Q1H1M ONE Infusion Piperacillin Sod/Tazobactam 50 mls @ 100 mls/hr 12/20/24 00:26 12/20/24 01:44 Sod 3.375 gm/ Sodium Chloride IV 12/20/24 00:55 Infused ONCE ONE Infusion Midazolam HCl 3 mg 12/20/24 00:37 12/20/24 00:50 Midazolam 5mg/Ml 1ml Vial IV 12/20/24 00:38 3 mg ONCE ONE Administration ORDERS Category Date Time Status CT angio chest PE protocol Stat Cat Scan 12/20/24 00:[address] bony pelvis Stat Cat Scan 12/20/24 00:[address] cervical spine wo con Stat Cat Scan 12/20/24 00:[address] head/brain wo con Stat Cat Scan 12/20/24 00:03 Ordered CXR --portable [XR chest portable] Stat Exams 12/20/24 00:03 Completed XR pelvis 1-2V Stat Exams 12/20/24 00:03 Completed BNP [NT Pro Brain Natriuretic Pep.] Stat Lab 12/20/24 00:04 Completed CBC w/Auto Diff [Complete Blood Count Auto Diff] Stat Lab 12/20/24 00:04 Completed CMP [Comprehensive Metabolic Panel] Stat Lab 12/20/24 00:04 Completed Full Resp Panel w/COVID ([facility]) Routine Lab 12/20/24 00:19 Received Lactic Acid Stat Lab 12/20/24 00:04 Completed Trop I [Troponin I] Stat Lab 12/20/24 00:04 Completed Troponin I Q3H Lab 12/20/24 03:15 Ordered Troponin I Q3H Lab 12/20/24 06:15 Ordered Urinalysis and Microscopic Stat Lab 12/20/24 00:28 Ordered Blood Culture Stat Micro 12/20/24 00:18 Received VBG [Venous Blood Gas] Stat RT 12/20/24 00:28 Ordered Venous Blood Gas Routine RT 12/20/24 00:12 Completed ECG Request Stat Y 12/20/24 00:03 Ordered MDM Narrative Medical Decision Narrative: In summary, this 79-year-old male with comorbidities described in the HPI presents to the emergency department today with worsening shortness of breath, cough, lightheadedness over the last week. On initial evaluation patient is hemodynamically stable, afebrile, he is chronically ill-appearing, cachectic, in mild respiratory distress with tachypnea and accessory muscle use, diffusely diminished breath sounds and wheezing throughout. He is able to speak in full sentences. GCS 15, patient had a recent fall and has few minor traumatic injuries appreciated on exam but no obvious deformity, swelling, or evidence of displaced osseous injury. He has been ambulatory since the time of his fall nearly 24 hours ago. Differential diagnosis includes but is not limited to COPD exacerbation, viral syndrome, pneumonia, bronchitis, PE, ACS, volume overload, hypercarbia, with his recent fall I considered the possibility of osseous injury especially with complaint of pain in the posterior left hip, also considered the possibility of intracranial bleed since he is on blood thinners or C-spine injury given his age. Based on these concerns, I ordered broad workup including hematologic and serum labs, cardiac workup, CT imaging including angiography of the chest, x-rays of the chest and pelvis. I considered giving the patient a Tdap booster but he is quite ill right now and the wound on the left wrist is small, clean, and sustained inside his home so I believe it is low risk for tetanus at this time. I anticipate this patient being admitted to the hospital and Tdap booster could be considered at the time of discharge. ECG personally interpreted demonstrates sinus rhythm, rate 80, normal axis, normal AL and QTc, poor R wave progression, no STEMI. Patient received DuoNebs initially as well as aspirin for treatment. He already received IV steroids from EMS. Blood cultures are being collected and I am planning to administer antibiotics for COPD exacerbation. I plan to administer antibiotics that will cover for Pseudomonas given his previous sputum cultures earlier this year. Labs personally reviewed demonstrate leukocytosis WBC 12.1, anemia improved from previous. With this leukocytosis and patient's vitals including tachypnea and hypoxia as well as a suspected respiratory source, he meets sepsis criteria. He is going to receive Zosyn initially given his previous sputum cultures and this will cover more broadly than just Pseudomonas as well. I am not going to administer a full 30 mL/kg bolus of fluids because this patient has a history of volume overload and has peripheral edema on exam. He is not hypotensive either so I believe a smaller bolus is appropriate and will be better tolerated by this patient. VBG supports the concern for COPD exacerbation with pH 7.24, hypercarbia, normal lactic. CMP not acutely actionable, respiratory panel pending, troponin undetectable less than 0.01, BNP nonactionable. XR personally interpreted demonstrates bullae and evidence of chronic lung disease but no lobar infiltrate, see radiology read for final interpretation. CT head, C-spine, and bony pelvis were personally interpreted and I do not appreciate acute traumatic injury, there are degenerative changes. See radiology read for final interpretation which does comment on the inability to exclude bladder neoplasm and recommends urology follow-up. This was discussed with the patient. Referral placed to Dr. Rios for follow up. CTA PE personally interpreted demonstrates no segmental or subsegmental PE, evidence of chronic lung disease but no acute changes, see radiology read for final interpretation. Patient is tolerating BiPAP better after having received Versed. His respiratory status is improved and the air movement is better on auscultation. At this time I believe he is appropriate for admission to the hospital. I discussed this case with the hospitalist, Carleen. We reviewed the patient's presentation, workup, results, and current status. I discussed with her that patient will likely need referral for urology follow-up regarding the abnormality of the bladder as well as to consider Tdap booster after patient has shown signs of illness improving. She understands all this and agrees that the patient requires admission for continued management. Patient was graciously accepted and admitted in stable condition.
[2024-12-20 00:12] LABS: Hematocrit 41.0 % (42.0-52.0); Hemoglobin 13.0 g/dL (14.1-18.0); Immature Granulocytes % 0.5 %; Mean Corpuscular HGB Conc 31.7 g/dL (31.8-35.4); Mean Corpuscular Hemoglobin 29.7 pg (27.0-31.2); Mean Corpuscular Volume 93.8 fl (80-94); Nucleated Red Blood Cells % 0 %; Platelet Count 229 K/mm3 (142-424); Red Blood Count 4.37 M/mm3 (4.60-6.20); Red Cell Distribution Width-SD 46.7 fL; White Blood Count 12.1 K/mm3 (4.8-10.8)
[2024-12-20 00:13] LABS: Lactate Venous 1.8 mmol/L (0.4-2.0); VBG HCO3 27.4 mmol/L (23-30); VBG PCO2 66.0 mmol/L (35-51); VBG PH 7.24 mmol/L (7.31-7.41); VBG PO2 34.6 mmol/L (28-40)
--- NOTE | 2024-12-20 00:20 | PC.NURSE ---
FSBG 81
[2024-12-20 00:21] LABS: Alanine Aminotransferase 24 U/L (12-78); Albumin Level 4.1 g/dl (3.5-5.0); Albumin/Globulin Ratio 1.4 (1.1-1.8); Alkaline Phosphatase 95 U/L (38-126); Anion Gap 12.5 mEq/L (5-15); Aspartate Amino Transferase 28 U/L (17-59); Bilirubin,Total 0.6 mg/dl (0.2-1.3); Blood Urea Nitrogen 18 mg/dl (9-20); Calcium 8.7 mg/dl (8.4-10.2); Carbon Dioxide 32 mmol/L (22.0-30.0); Chloride 94 mmol/L (98-107); Creatinine Clearance Estimated 53 mL/min (50-200); Creatinine,Serum 0.90 mg/dl (0.66-1.25); Estimated Glomerular Filt Rate 82 ml/min (>60); GFR (African American) 99 ML/MIN (>60); Globulin 2.9 g/dL (1.3-3.2); Glucose 96 mg/dl (74-100); Potassium 4.5 mmoL/L (3.5-5.1); Sodium 134 mmol/L (136-145); Total Protein,Serum 7.0 g/dl (6.3-8.2)
[2024-12-20] MEDS: ASPIRIN 81MG CHEWABLE TABLET 324 MG PO (00:21)
[2024-12-20 00:30] LABS: Adenovirus,PCR Not Detected (NotDetected); Chlamydophila Pneumoniae, PCR Not Detected (NotDetected); Coronavirus 19, PCR Not Detected (NotDetected); Coronovirus HKU1,PCR Not Detected (NotDetected); Influenza A, PCR Not Detected (NotDetected); Influenza AH1, 2009 Not Detected (NotDetected); Influenza AH1, PCR Not Detected (NotDetected); Influenza AH3,PCR Not Detected (NotDetected); Influenza B, PCR Not Detected (NotDetected); Mycoplasma Pneumoniae, PCR Not Detected (NotDetected); Parainfluenza 1, PCR Not Detected (NotDetected); Parainfluenza 2, PCR Not Detected (NotDetected); Parainfluenza 3, PCR Not Detected (NotDetected); Parainfluenza 4, PCR Not Detected (NotDetected)
[2024-12-20 00:33] LABS: NT Pro Brain Natriuretic Pep. 275 pg/mL (0-450)
[2024-12-20 00:35] LABS: Troponin I < 0.01 ng/ml (0.00-0.034)
[2024-12-20] MEDS: PIPERACILLIN/TAZO 3.375 GM in 0.9 % SODIUM CHLORIDE 50 ML IV ×2 (00:35→06:32)
[2024-12-20] MEDS: LACTATED RINGERS 1000ML 1,000 ML 999 ML IV (00:35)
--- NOTE | 2024-12-20 00:45 | CT_ITS ---
PROCEDURE INFORMATION: Exam: CT Pelvis Without Contrast, Skeleton Exam date and time: 12/20/2024 1:15 AM Age: 79 years old Clinical indication: Hip pain; Left hip; Additional info: Pain posterior L hip after fall, is ambulatory TECHNIQUE: Imaging protocol: Computed tomography of the pelvis without contrast. Exam focused on the skeleton. Radiation optimization: All CT scans at this facility use at least one of these dose optimization techniques: automated exposure control; mA and/or kV adjustment per patient size (includes targeted exams where dose is matched to clinical indication); or iterative reconstruction. COMPARISON: CR XR PELVIS 1-2V 12/20/2024 12:31 AM FINDINGS: Intestine: Diverticulosis without evidence of diverticulitis. Vasculature: Heavy atherosclerotic disease. Reproductive: Prominent prostate extending through the bladder trigone. Bones/joints: Degenerative change of the visualized osseous structures. Soft tissues: Distended urinary bladder with multifocal soft tissue nodularity particularly along the posterior thickened bladder wall. IMPRESSION: 1. No acute osseous abnormality. 2. Distended urinary bladder with superimposed prominent prostate gland. Correlate with urinary retention/bladder outlet obstruction. 3. Difficult to exclude neoplasm of the urinary bladder particularly of the posterior bladder wall. Consider urology referral.
[2024-12-20] MEDS: MIDAZOLAM 5MG/ML 1ML VIAL 3 MG IV (00:50)
[2024-12-20] MEDS: 0.9 % SODIUM CHLORIDE 50 ML VIAL IV (02:05)
[2024-12-20] MEDS: SODIUM CHLORIDE 0.9% 10ML SYR (RAD ONLY) 10 ML IV (02:05)
[2024-12-20] MEDS: IOPAMIDOL-370 (76%);100ML BOTTLE 70 ML IV (02:05)
--- NOTE | 2024-12-20 02:32 | PC.NURSE ---
Report given to Laurie DIAZ in the ICU
--- NOTE | 2024-12-20 03:03 | PC.NURSE ---
patient arrived to Unit at 0250 via stretcher
[2024-12-20 03:36] LABS: Troponin I < 0.01 ng/ml (0.00-0.034)
--- NOTE | 2024-12-20 03:37 | P.HP_ITS ---
<Statement entered by Kurt Us MD - 12/20/24 20:10> Rounded on patient after nurse practitioner. Personally examined and interviewed patient. Agree with exam findings and care plan as documented. History of Present Illness *Admission Date: 12/20/24 *Reason for visit:: Shortness of breath *History of present illness: 79-year-old male patient with history of COPD presents to ER with complaints of shortness of breath over the last week worsening on the day he presented. He has had a mild cough that is productive of yellow sputum. Denies fever chills or bodyaches. He was found to have an O2 sat of 85% on 2-1/2 L nasal cannula oxygen that he normally wears at home. He has had some lightheadedness and some falls. He denies injuries. But does complain of some pain posterior aspect of the left hip. Multiple skin tears have been noted. He does report occasionally having swelling in his lower extremities but did not feel like he had any recently and had not been taking his water pill. EMS administered 1 nebulizer treatment and IV Solu-Medrol. In the ER he received IV fluids although he did not receive the full sepsis bolus due to stable blood pressure and history of fluid retention. He received additional breathing treatments, Zosyn and Versed. He did require BiPAP and has tolerated it well. Blood gases did show hypercapnic respiratory failure. He was admitted here in July of this year with acute on chronic respiratory failure, right lower lobe pneumonia which cultures came back with Pseudomonas. He did follow-up with pulmonology outpatient but it appears he has not had any further follow-up after the first visit. X-ray and CT of the pelvis reportedly negative for acute injury however there is mention of a bladder lesion on the CT pelvis. CT chest shows severe bullous emphysema. [facility] Disclaimer: The information contained in this section may have been updated after the patient was seen, as this information can be updated by other users. Medical History Encounter for screening for malignant neoplasm of lung Alcohol withdrawal seizure Anemia Multiple lung nodules on CT COPD mixed type Smoking greater than 30 pack years Pulmonary emphysema Appendicitis History of prostate disorder GERD (gastroesophageal reflux disease) Hypertension Afib COPD (chronic obstructive pulmonary disease) Surgical History H/O foot surgery History of appendectomy Family History Other Family history of COPD (chronic obstructive pulmonary disease) Family history of hyperlipidemia Family history of hypertension Family history of myocardial infarction Social History (Updated 08/05/24 @ 13:05 by CHARLOTTE Kruger) Smoking Status: Current every day smoker tobacco type: cigarettes packs per day: 1 pack-years: 62 alcohol intake: former substance use type: denies use current occupational status: retired Travel in the last 8 weeks?: None Other Medical History Have you received the Flu Vaccine for this season: No Have you received the Pneumonia Vaccine: Yes Review of Systems Constitutional Constitutional: Denies chills, Denies fever(s) and Denies headache(s) Eyes Eyes: Denies change in vision and Denies loss of vision ENT Ears, Nose, Mouth, and Throat: Reports dizziness, Denies headache(s) and Reports sore throat *Cardiovascular Cardiovascular: Reports chest pain, Reports dyspnea and Reports leg edema *Respiratory Respiratory: Reports dyspnea *Gastrointestinal Gastrointestinal: Denies abdominal pain, Denies nausea and Denies vomiting *Genitourinary Genitourinary: Reports difficulty urinating *Musculoskeletal Musculoskeletal: Reports back pain and Denies myalgias *Neurologic Neurologic: Denies confusion, Reports dizziness, Denies headache(s) and Denies loss of vision Psychiatric Psychiatric: Denies anxiety, Denies confusion and Denies depression Meds Home Medications and Allergies Home Medications ?Medication ?Instructions ?Recorded ?Confirmed ?Type tamsulosin 0.4 mg capsule 0.4 mg PO BID 06/10/2007/20 History apixaban 5 mg tablet 5 mg PO BID 07/24/22 5 History albuterol sulfate 90 mcg/actuation 2 puff inhalation Q 4HP PRN 07/29/23 07/20/24 Rx aerosol inhaler Shortness Of Breath 30 days #8.5 grams pantoprazole 40 mg tablet,delayed 40 mg PO DAILY 30 da ys #30 tabs 07/29/23 07/20/24 Rx release budesonide 160 mcg-glycopyr 9 2 puff inhalation BID 07/21/24 History mcg-formot 4.8 mcg/actuation HFA inhaler (Breztri Aerosphere) famotidine 40 mg tablet 40 mg PO HS 07/20/24 5 History furosemide 20 mg tablet 20 mg PO DAILYP PRN fluid re tention 07/20/24 07/20/24 History ipratropium 20 mcg-albuterol 100 1 puff inhalation QID 07/20/24 07/20/24 History mcg/actuation mist for inhalation (Combivent Respimat) magnesium oxide 400 mg (241.3 mg 400 mg PO BID 5 07/20/24 History magnesium) tablet metoprolol succinate 50 mg 50 mg PO DAILY 07/20/24 History tablet,extended release 24 hr primidone 50 mg tablet 50 mg PO DAILY 07/20/2407/02 History ipratropium 0.5 mg-albuterol 3 mg 3 ml inhalation Q6HP PRN Shortness 07/23/24 Rx (2.5 mg base)/3 mL nebulization Of Breath 30 days #180 mL soln finasteride 5 mg tablet 5 mg PO DAILY 08/05/2408/05 History New Prescriptions to Start Prescriptions: Allergies Allergy/AdvReac Type Severity Reaction Status Date / Time No Known Allergies Allergy Verified 08/05/24 12:54 Exam Data for Last 24 hours Vital signs and Labs for Last 24 Hours: Temp Pulse Resp BP Pulse Ox O2 Del Method O2 Flow Rate 98.1 F 77 18 147/62 H 94 L BiPAP 4 12/20/24 02:41 12/20/24 02:41 12/20/24 02:41 12/20/24 02:41 12/20/24 02:00 12/20/24 03:00 12/20/24 00:04 Laboratory Results - last 24 hr 12/20/24 00:04: WBC 12.1 H, RBC 4.37 L, Hgb 13.0 L, Hct 41.0 L, MCV 93.8, MCH 29.7, MCHC 31.7 L, RDW 13.6, Plt Count 229, MPV 9.3, Neut % (Auto) 83.4 H, Lymph % (Auto) 10.4, Teton % (Auto) 5.4, Eos % (Auto) 0.1, Baso % (Auto) 0.2, Neut # (Auto) 10.1 H, Lymph # (Auto) 1.3, Teton # (Auto) 0.7, Eos # (Auto) 0.0, Baso # (Auto) 0.0, Sodium 134 L, Potassium 4.5, Chloride 94 L, Carbon Dioxide 32 H, Anion Gap 12.5, BUN 18, Creatinine 0.90, Estimated Creat Clear 53, Estimated GFR 82, Est GFR ( Amer) 99, Glucose 96, Lactate 1.7, Calcium 8.7, Total Bilirubin 0.6, AST 28, ALT 24, Alkaline Phosphatase 95, Troponin I < 0.01, NT-Pro-B Natriuret Pep 275, Total Protein 7.0, Albumin 4.1, Globulin 2.9, Albumin/Globulin Ratio 1.4 12/20/24 00:12: VBG pH 7.24 L, VBG pCO2 66.0 H, VBG pO2 34.6, VBG HCO3 27.4, VBG Total CO2 29.4 H, VBG O2 Saturation 61.4, VBG Base Excess -0.1, VBG Lactic Acid 1.8 12/20/24 00:19: Chlamy pneumoniae PCR Not detected, Adenovirus (PCR) Not detected, B. pertussis DNA (PCR) Not detected, Coronavirus OC43 (PCR) Not detected, Coronavirus HKU1 (PCR) Not detected, Coronavirus 229E (PCR) Not detected, SARS-CoV-2 (PCR) Not detected, Coronavirus NL63 (PCR) Not detected, Human Metapneumovir PCR Not detected, Influenza A (H1) PCR Not detected, Influ A (H1N1/09) PCR Not detected, Influenza A (H3) PCR Not detected, Influenza Type A (PCR) Not detected, Influenza Type B (PCR) Not detected, M. pneumoniae (PCR) Not detected, Parainfluenza 1 (PCR) Not detected, Parainfluenza 2 (PCR) Not detected, Parainfluenza 3 (PCR) Not detected, Parainfluenza 4 (PCR) Not detected, RSV (PCR) Not detected, Entero/Rhino (PCR) Not detected 12/20/24 03:02: Troponin I < 0.01 I & O for Last 24 hours: Intake & Output 12/17/24 12/18/24 12/19/24 12/20/24 23:59 23:59 23:59 23:59 Intake Total 1050 / 1050 Balance 1050 / 1050 Weight 61.235 kg *Routine HEENT Exam Head: Present normocephalic and atraumatic Eye: Present PERRL ENT: Present mucous membranes dry *Routine Neck Exam Neck: Present supple *Routine Respiratory Exam Respiratory: Present decreased breath sounds and wheezes *Routine Cardiovascular Exam Cardiovascular: Present RRR, Normal S1 and Normal S2 *Routine Abdominal Exam Abdominal: Present soft and normoactive bowel sounds; Absent tenderness *Routine Rectal Exam Rectal:: deferred *Routine Genitalia Exam Genitalia:: deferred *Routine Extremities Exam Extremities: Present edema and pulses intact *Routine Skin Exam Skin: Present ecchymosis Comments: Multiple skin tears *Routine Neurological Exam Neurological: Present alert, oriented X3 and moving all extremities Assessment and Plan *Assessment and plan (1) Acute and chronic respiratory failure with hypercapnia: Status: Acute Category: Medical Code(s): J96.22 - Acute and chronic respiratory failure with hypercapnia (2) Acute exacerbation of chronic obstructive airways disease: Status: Acute Category: Medical Code(s): J44.1 - Chronic obstructive pulmonary disease with (acute) exacerbation (3) Fall: Status: Acute Qualifiers: Encounter type: initial encounter Qualified Code(s): W19.XXXA - Unspecified fall, initial encounter Category: Medical Code(s): W19.XXXA - Unspecified fall, initial encounter (4) Hip pain: Status: Acute Qualifiers: Laterality: left Qualified Code(s): M25.552 - Pain in left hip Category: Medical Code(s): M25.559 - Pain in unspecified hip (5) Hypertension: Status: Chronic Qualifiers: Hypertension type: unspecified Qualified Code(s): I10 - Essential (primary) hypertension Category: Medical Code(s): I10 - Essential (primary) hypertension (6) Afib: Status: Acute Qualifiers: Atrial fibrillation type: unspecified chronic Qualified Code(s): I48.20 - Chronic atrial fibrillation, unspecified Category: Medical Code(s): I48.91 - Unspecified atrial fibrillation (7) Chronic anticoagulation: Status: Acute Category: Medical Code(s): Z79.01 - group home (current) use of anticoagulants (8) Abnormal CT scan, pelvis: Status: Acute Category: Medical Code(s): R93.5 - Abnormal findings on diagnostic imaging of other abdominal regions, inc luding retroperitoneum Plan Patient presents to ER with shortness of breath worsening over the last week. Has severe COPD with bullous emphysema noted on CT. after discussion with the ER physician agreed to admit to stepdown for further treatment. He is doing well on BiPAP. Will consult pulmonology. Continue breathing treatments as well as IV antibiotics. Blood cultures are pending. Will give him normal saline for gentle IV hydration. Imaging reveals no acute injuries from the falls. He does have multiple skin tears documented by nursing staff. Will ask physical therapy and Occupational Therapy to evaluate. He does have some swelling in the lower extremities however his BNP is within normal range at 275. Troponins x [address] pelvis mentions lesion in the bladder, will need outpatient urology follow-up. It seems he may not be the most reliable for follow-up. Will ask case management to assist. Will resume home medications as appropriate once reconciled.
[2024-12-20] MEDS: 0.9 % SODIUM CHLORIDE 1000ML 1,000 ML 75 ML IV (04:26)
[2024-12-20 05:22] LABS: Lactate Venous 1.6 mmol/L (0.4-2.0); VBG HCO3 28.2 mmol/L (23-30); VBG PCO2 46.5 mmol/L (35-51); VBG PH 7.40 mmol/L (7.31-7.41); VBG PO2 45.0 mmol/L (28-40)
[2024-12-20 06:33] LABS: Troponin I < 0.01 ng/ml (0.00-0.034)
--- NOTE | 2024-12-20 07:47 | PC.WOUNDNOTE ---
Laceration to patients back Skin tear Bruising
--- NOTE | 2024-12-20 07:57 | PC.NURSE ---
Addendum entered by Lora Mcwilliams RN 12/20/24 11:17: [id number] Patients oxygen saturation of 98% on 5 L NC at this time. Original Note: Patient taken off Bipap at this time. Patient placed on 5 L NC at this time. Continuation of care plan.
--- NOTE | 2024-12-20 07:58 | PC.NURSE ---
Patients blood pressure elevated at this time. Patients systolic pressure of 170's. notified. No new orders received. Continuation of care plan.
[2024-12-20 08:38] LABS: Albumin Level 3.4 g/dl (3.5-5.0); Chloride 95 mmol/L (98-107); Potassium 4.8 mmoL/L (3.5-5.1); Sodium 132 mmol/L (136-145)
[2024-12-20 08:41] LABS: Alanine Aminotransferase 20 U/L (12-78); Albumin/Globulin Ratio 1.2 (1.1-1.8); Alkaline Phosphatase 83 U/L (38-126); Anion Gap 12.8 mEq/L (5-15); Aspartate Amino Transferase 34 U/L (17-59); Bilirubin,Total 0.4 mg/dl (0.2-1.3); Blood Urea Nitrogen 18 mg/dl (9-20); Calcium 8.1 mg/dl (8.4-10.2); Carbon Dioxide 29 mmol/L (22.0-30.0); Creatinine Clearance Estimated 51 mL/min (50-200); Creatinine,Serum 0.80 mg/dl (0.66-1.25); Estimated Glomerular Filt Rate 93 ml/min (>60); GFR (African American) 113 ML/MIN (>60); Globulin 2.9 g/dL (1.3-3.2); Glucose 110 mg/dl (74-100); Hematocrit 36.0 % (42.0-52.0); Immature Granulocytes % 0.4 %; Mean Corpuscular HGB Conc 32.2 g/dL (31.8-35.4); Mean Corpuscular Hemoglobin 30.1 pg (27.0-31.2); Mean Corpuscular Volume 93.5 fl (80-94); Nucleated Red Blood Cells % 0 %; Platelet Count 211 K/mm3 (142-424); Red Blood Count 3.85 M/mm3 (4.60-6.20); Red Cell Distribution Width-SD 46.5 fL; Total Protein,Serum 6.3 g/dl (6.3-8.2); White Blood Count 9.3 K/mm3 (4.8-10.8)
--- NOTE | 2024-12-20 09:10 | PC.NURSE ---
at bedside. Per , Patient may have a regular diet, discontinue 0.9% Sodium Chloride fluids as ordered on MAY, Administer metoprolol as ordered on MAY and wait an hour, then if patients blood pressure is still elevated administer Irbesartan. Dr. Us states patient may get an echo tomorrow, cardiology and pulmonology will see patient tomorrow. Continuation of care plan.
[2024-12-20] MEDS: METOPROLOL SUCCINATE XL 50MG TABLET 50 MG PO (09:11)
[2024-12-20 09:31] LABS: Total Cells Counted 100
[2024-12-20 09:32] LABS: Hypochromasia 2+; Ovalocytes 1+
[2024-12-20] MEDS: IPRATROPIUM/ALBUTEROL 3 ML NEB IH ×4 (09:33→21:34)
[2024-12-20 09:39] LABS: Microscopic, Urine URINE MICROSCOPIC (MICROSCOPIC)
[2024-12-20 09:41] LABS: Bilirubin,Urine Negative (Negative); Color,Urine YELLOW (Yellow); Glucose,Urine (UA) Negative (Negative); Ketones,Urine Negative (Negative); Leukocyte Esterase,Urine TRACE (Negative); PH,Urine 7.0 (5.0-8.5); Protein,Urine Negative (Negative); Specific Gravity, Urine 1.010 (1.005-1.030); Urobilinogen,Urine 0.2 EU/dl (0.2)
[2024-12-20 09:42] LABS: Hemoglobin 11.6 g/dL (14.1-18.0)
[2024-12-20 09:50] LABS: RBC,Urine Occasional #/hpf (0-3); Squamous Epithelial Cell,Urine Occasional #/hpf (0-5); WBC,Urine Occasional #/hpf (0-3)
--- NOTE | 2024-12-20 09:59 | HMH.PHAINT1 ---
Pharmacy Intervention Comments: MEDICATION RECONCILIATION COMPLETED ON PATIENT USING EXTERNAL FILL HISTORY FROM PHARMACY, LIST FROM PULMONOLOGY OFFICE, AND DISCHARGE SUMMARY FROM PREVIOUS ADMISSION. -MARY JONES, PHARMD
--- NOTE | 2024-12-20 10:30 | PC.NURSE ---
Patients blood pressure of 147/73 (116), HR 74, Oxygen saturation 94% on 3 L NC. notified. MAR updated. Continuation of care plan.
[2024-12-20] MEDS: PIPERACILLIN/TAZO 4.5 GM in 0.9 % SODIUM CHLORIDE 100 ML IV ×3 (12:26→23:44)
--- NOTE | 2024-12-20 14:00 | PC.NURSE ---
Patient assisted to stand along side of bed to use urinal. Patient complains of shortness of breath. Patients oxygen saturation of 86% on 5 L NC. Primary RN notified of increased work of breathing. Patient placed on Bipap at this time. Continuation of care plan.
--- NOTE | 2024-12-20 14:50 | PC.NURSE ---
at bedside. Continuation of care plan.
--- NOTE | 2024-12-20 15:27 | PC.NURSE ---
Patient requests Bipap off. Bipap removed. Patient placed on 5 L NC. Continuation of care plan.
--- NOTE | 2024-12-20 16:36 | PC.NURSE ---
notified of patients blood pressure of 179/86. states to let him know if patients blood pressure gets higher than 180 Systolic and 90 Diastolic. Primary RN asked provider if he would like a VBG ordered. Provider states patient does not need a VBG at this time. Continuation of care plan.
[2024-12-20] MEDS: BUDESONIDE/GLYCOPYR/FORMOTEROL 160/9/4.8MCG INHALER 2 PUFF IH (17:53)
[2024-12-20] MEDS: PANTOPRAZOLE 40MG VIAL 40 MG IV (20:29)
[2024-12-20] MEDS: APIXABAN 5MG TABLET 5 MG PO (20:29)
[2024-12-20] MEDS: TAMSULOSIN 0.4MG CAPSULE 0.8 MG PO (20:30)
--- NOTE | 2024-12-20 20:54 | ECG_ITS ---
APPROVED REPORT Exam: Resting ECG HR:78 bpm ECG Measurements Heart Rate 78 AXES SD 91 P 84 QRSd 83 QRS 89 QT 410 T 76 QTc 443 Conclusion SINUS RHYTHM WITH SINUS ARRHYTHMIA WITH SHORT SD INTERVAL SEPTAL MYOCARDIAL INFARCTION , PROBABLY OLD [40+ ms Q WAVE IN V1/V2] MODERATE T-WAVE ABNORMALITY, CONSIDER LATERAL ISCHEMIA [-0.1+ mV T-WAVE IN I/aVL/V5/V6] MODERATE T-WAVE ABNORMALITY, CONSIDER INFERIOR ISCHEMIA [-0.1+ mV T-WAVE IN II/aVF] ABNORMAL ECG UNCONFIRMED REPORT Electronically signed by : Uday Suh MD 12/21/2024 08:46:00
--- NOTE | 2024-12-20 21:19 | PC.NURSE ---
at 2100 pt stated that he started having chest pain, while coughing. Asked pt how it felt, pt stated that it was sharp pain that just started. Respiratory to get an EKG, and I turned the fan on per pt request. Physician read EKG as NSR with sinus arrhythmia. EKG is in chart.
[2024-12-21] VITALS (32 sets, daily range): BP systolic 140–192; BP diastolic 62–103; PULSE 65–100; RESP 13–26; TEMP 36.4–36.7; O2SAT 82–99; BMI 19.1
[2024-12-21] MEDS: IPRATROPIUM/ALBUTEROL 3 ML NEB IH ×7 (00:41→23:59)
[2024-12-21 05:48] LABS: Chloride 99 mmol/L (98-107)
[2024-12-21 05:49] LABS: Albumin Level 3.2 g/dl (3.5-5.0); Potassium 3.8 mmoL/L (3.5-5.1); Sodium 135 mmol/L (136-145)
[2024-12-21 05:51] LABS: Blood Urea Nitrogen 24 mg/dl (9-20); Creatinine Clearance Estimated 50 mL/min (50-200); Creatinine,Serum 1.00 mg/dl (0.66-1.25); Estimated Glomerular Filt Rate 72 ml/min (>60); GFR (African American) 87 ML/MIN (>60)
[2024-12-21 05:52] LABS: Alanine Aminotransferase 20 U/L (12-78); Albumin/Globulin Ratio 1.1 (1.1-1.8); Alkaline Phosphatase 74 U/L (38-126); Anion Gap 7.8 mEq/L (5-15); Aspartate Amino Transferase 29 U/L (17-59); Bilirubin,Total 0.3 mg/dl (0.2-1.3); Calcium 8.3 mg/dl (8.4-10.2); Carbon Dioxide 32 mmol/L (22.0-30.0); Globulin 2.8 g/dL (1.3-3.2); Glucose 116 mg/dl (74-100); Total Protein,Serum 6.0 g/dl (6.3-8.2)
[2024-12-21 06:02] LABS: Hematocrit 35.3 % (42.0-52.0); Hemoglobin 11.2 g/dL (14.1-18.0); Immature Granulocytes % 0.5 %; Mean Corpuscular HGB Conc 31.7 g/dL (31.8-35.4); Mean Corpuscular Hemoglobin 29.7 pg (27.0-31.2); Mean Corpuscular Volume 93.6 fl (80-94); Nucleated Red Blood Cells % 0 %; Platelet Count 200 K/mm3 (142-424); Red Blood Count 3.77 M/mm3 (4.60-6.20); Red Cell Distribution Width-SD 47.4 fL; White Blood Count 7.7 K/mm3 (4.8-10.8)
[2024-12-21] MEDS: BUDESONIDE/GLYCOPYR/FORMOTEROL 160/9/4.8MCG INHALER 2 PUFF IH ×2 (06:14→18:16)
[2024-12-21] MEDS: PIPERACILLIN/TAZO 4.5 GM in 0.9 % SODIUM CHLORIDE 100 ML IV ×2 (06:24→12:02)
--- OUTSIDE RECORDS SUMMARY | 2024-12-21 07:45 | XMS_ITS | Encounter Summary ---
Author Organization [place] [address] Care Team Providers Care Terrazzo Tile Setter Name Role Phone Unavailable Primary Care Provider Unavailabl e Reason for Visit * Reason Comments Medication Refill Encounter Details Date Type Department Care Team (Late st Contact Info) Description 11/12/2024 Refill SEP Pulmonology [facility] [address] [facility] Building [address] [place] [phone] Matheus Childress MD [address] [phone] Medication Refill Social History Tobacco Use Types Packs/Day Years Used Date Smoking Tobacco: Every Day Cigarettes 2 60.8 Started: 1963 Smokeless Tobacco: Never Comments:Pt smoking about 3- 4 cigs a day 11/18/2023 Sex and Gender Information Value Date Recorded Sex Assigned at Not on file Legal Sex Male 2:24 PM EST Gender Identity Not on file Sexual Orientation Not on file documented as of this encounter Ordered Prescriptions Prescription Sig Dispense Quantity Refills Last Filled Start Date End Date budesonide-glycopyr -formoterol (BREZTRI AEROSPHERE) 160-9-4.8 mcg/actuation Inhl HFA Aerosol Inhaler INHALE 2 PUFFS BY MOUTH 2 TIMES A DAY 32.1 g 11/12/2024 documented in this encounter Miscellaneous Notes * Telephone Encounter - Yris Wharton, binitrotoluene operator - 11/12/2024 1:20 PM EDT Luhztri 160-9-4.8 Future Visit: 11/20/24 Last Assessed Visit: 05/18/24 Follow-Up Date: 11/18/24 All protocols passed. Refills approved and sent to requesting pharmacy. Routed to [facility] if an appointment is needed. documented in this encounter Plan of Treatment Not on file documented as of this encounter Visit Diagnoses Not on filedocumented in this encounter Discontinued Medications Medication Sig Discontinue Reason Start Date End Da te bxlzylkyns-xoyhjiai-uwdn oterol (BREZTRI AEROSPHERE) 160-9-4.8 mcg/actuation Inhl HFA Aerosol Inhaler INHALE 2 PUFFS BY MOUTH 2 TIMES A DAY 09/18/2024 11/12/2024 documented as of this encounter
--- OUTSIDE RECORDS SUMMARY | 2024-12-21 07:45 | XMS_ITS | Patient Health Record ---
Author Organization [facility] Address [address] [place] [address] Care Team Providers Care Hotshot Superintendent Name Role Phone Marbieth Mclean Primary Care Provider [phone] MARIBETH MCLEAN Unavailable Unavaila ble Migration, Provider Unavailable Unavailable Allergies No Known Allergies Reason For Referral No Information Medications Medication SIG (Take, Route, Frequency, Duration) Notes Start Date End Date Status Albuterol Sulfate HFA 108 (90 Base) MCG/ACT INHALE 2 PUFFS BY MOUTH EVERY 6 HOURS NEEDED FOR SHORTNESS OF BREATH; Duration: 16 Active Breztri Aerosphere 160 MCG-4.8 MCG-9 MCG/INH 2 PUFF(S) INHALED 2 TIMES A DAY; Duration: 28 days *Please review and pick correct strength-formulat ion from [employer] options. If intended option is not shown, discontinue and re-order from Quick Search* Active Furosemide 20 MG 1 tab(s) orally once a day as needed for swelling; Duration: 30 days Active Ondansetron HCl 4 mg TAKE ONE TABLET BY MOUTH EVERY 8 HOURS NEEDED FOR NAUSEA; Duration: 10 Active Metoprolol Succinate ER 50 mg TAKE ONE TABLET BY MOUTH ONCE A DAY FOR HYPERTENSION AND A. FIB; Duration: 30 Active Famotidine 40 mg TAKE ONE TABLET BY MOUTH AT BEDTIME; Duration: 30 Active Finasteride 5 MG 1 tab(s) orally once a day Active Pantoprazole Sodium 40 mg TAKE ONE TABLET BY MOUTH ONCE A DAY; Duration: 30 Active Eliquis 5 MG as directed orally 2 times a day Active Primidone 50 mg TAKE ONE TABLET BY MOUTH ONCE A DAY FOR TREMOR; Duration: 30 Active Tamsulosin HCl 0.4 MG 1 cap(s) orally 2 times a day; Duration: 90 days Active predniSONE 10 mg TAKE 1 TO 2 TABLETS BY MOUTH ONCE DAILY FOR 30 DAYS; Duration: 30 Active Rosuvastatin Calcium 20 MG 1/2 tab orally at bedtime Active Combivent Respimat 20-100 MCG/ACT INHALE 1 PUFF 4 TIMES A DAY FOR COPD; Duration: 30 Active Magnesium Oxide 420 MG 2 tabs orally onc e a day Active Levocetirizine Dihydrochloride 5 mg TAKE 1 TABLET BY MOUTH EVERY EVENING; Duration: 30 Active Immunizations Vaccine Route Administration Date Status Comme nts Fluzone High Dose IM Intramuscular 12/11/2023 Administered Social History Tobacco Use: Social History Observation Description Date Details (start date - stop date) Current Smoker NA - NA Smoking: Question Answer Notes Are you a: current smoker How many cigarettes a day do you smoke? 5 or les s Problems Problem Type SNOMED Code ICD Code Onset Dates Problem Status W/U Status Risk Notes Problem Paroxysmal atrial fibrillation (879068089) Paroxysmal atrial fibrillation (I48.0) Active confirmed Problem Dependence on supplemental oxygen (651491521965) Dependence on supplemental oxygen (Z99.81) Active confirmed Problem Essential hypertension (03837666) Essential hypertension (I10) Active confirmed Problem Acute exacerbation of chronic obstructive airways disease (030666560) COPD exacerbation (J44.1) Active confirmed Problem Chronic fatigue syndrome (31114035) Chronic fatigue (R53.82) Active confirmed Problem Iron deficiency anemia (87072147) Iron deficiency anemia, unspecified iron deficiency anemia type (D50.9) Active confirmed Problem Lower urinary tract symptoms due to benign prostatic hypertrophy (44239430988799) Benign prostatic hyperplasia with lower urinary tract symptoms, symptom details unspecified (N40.1) Active confirmed Problem Chronic respiratory failure (58687997) Chronic hypoxic respiratory failure (J96.11) Active confirmed Problem Chronic obstructive pulmonary disease (92366666) COPD, 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) Active confirmed Encounters Encounter Location Date Provider Diagnosis [facility] [address] [facility] [address] [place] [address] 06/06/2024 Provider Migration Paroxysmal atrial fibrillation I48.0 ; Tremor R25.1 ; COPD exacerbation J44.1 ; Dyspepsia R10.13 and Peripheral edema R60.0 [facility] [address] [facility] [address] [place] [address] 03/17/2024 Maribeth Caridad Peripheral edema R60.0 ; COPD exacerbation J44.1 ; Paroxysmal atrial fibrillation I48.0 ; COPD, severe J44.9 ; Dependence on supplemental oxygen Z99.81 ; Chronic hypoxic respiratory failure J96.11 ; Essential hypertension I10 ; Abdominal distension R14.0 and Benign prostatic hyperplasia with lower urinary tract symptoms, symptom details unspecified N40.1 [facility] [address] [place] [address] 07/28/2024 Maribeth Caridad COPD exacerbation J44.1 ; Peripheral edema R60.0 ; Paroxysmal atrial fibrillation I48.0 ; COPD, severe J44.9 ; Dependence on supplemental oxygen Z99.81 ; Chronic hypoxic respiratory failure J96.11 ; Essential hypertension I10 and Hospital discharge follow-up Z09 [facility] [address] [place] [address] 11/17/2024 Maribeth Caridad Peripheral edema R60.0 ; COPD, severe J44.9 ; Paroxysmal atrial fibrillation I48.0 ; Dependence on supplemental oxygen Z99.81 ; Chronic hypoxic respiratory failure J96.11 ; Essential hypertension I10 ; Iron deficiency anemia, unspecified iron deficiency anemia type D50.9 and Benign prostatic hyperplasia with lower urinary tract symptoms, symptom details unspecified N40.1 [facility] [address] [place] [address] 01/13/2024 Maribeth Caridad [facility] [address] [address] 02/18/2024 Maribeth Caridad [facility] [address] [place] [address] 04/06/2024 Maribeth Caridad [facility] [address] [place] [address] 04/21/2024 Maribeth Caridad [facility] [address] [place] [address] 05/14/2024 Maribeth Caridad [facility] [address] [place] [address] 07/23/2024 Maribeth Caridad [facility] [address] [place] [address] 07/31/2024 Maribeth Caridad [facility] [place] [address] [facility] [address] [facility] [address] [place] [address] 08/04/2024 Maribeth Caridad [facility] [address] [place] [address] 09/09/2024 Maribeth Caridad [facility] [place] [address] [facility] [address] [place] [address] 09/17/2024 Maribeth Caridad [facility] [place] [address] [facility] [address] [place] [address] 11/06/2024 Maribeth Caridad Assessments Encounter Date Diagnosis (ICD Code) Assessment Notes Treatment Notes Treatment Clinical Notes Section Notes 03/17/2024 COPD exacerbation (ICD-10 - J44.1) symptoms seem to be improving in the past 24 hours. discussed relationship between CHF and COPD. rec lasix daily until edema improves and then every other day may be sufficient but needs to be taken routinely increase flomax to BID complete antibiotics decrease prednisone to 20mg for a week and then back to 10mg daily continue pulmonology FU consider abdominal US and echo if edema and abdominal distention aren't resolving in the next week or so voices understanding/agre eable to plan encouraged smoking cessation 06/06/2024 Paroxysmal atrial fibrillation (ICD-10 - I48.0) 06/06/2024 Tremor (ICD-10 - R25.1) 06/06/2024 COPD exacerbation (ICD-10 - J44.1) 06/06/2024 Dyspepsia (ICD-10 - R10.13) 06/06/2024 Peripheral edema (ICD-10 - R60.0) 03/17/2024 Peripheral edema (ICD-10 - R60.0) improved since stopping CCB 07/28/2024 COPD exacerbation (ICD-10 - J44.1) Symptomatically improving...he plans to FU with [facility] Pulmonology which will be more convenient for him. Encouraged him to continue to refrain from smoking as well as alcohol use 07/28/2024 Peripheral edema (ICD-10 - R60.0) continue diuretics 11/17/2024 Peripheral edema (ICD-10 - R60.0) continue diuretics 11/17/2024 COPD, severe (ICD-10 - J44.9) Breztri, prednisone, has pulmonology FU arranged. 11/17/2024 Paroxysmal atrial fibrillation (ICD-10 - I48.0) Regular today on exam. Continue eliquis and metoprolol 07/28/2024 Paroxysmal atrial fibrillation (ICD-10 - I48.0) Regular today on exam. Continue eliquis and metoprolol 03/17/2024 Paroxysmal atrial fibrillation (ICD-10 - I48.0) Regular today on exam. Continue eliquis and metoprolol 07/28/2024 COPD, severe (ICD-10 - J44.9) Breztri, prednisone, has pulmonology FU arranged. 03/17/2024 COPD, severe (ICD-10 - J44.9) Breztri, prednisone, has pulmonology FU arranged. 11/17/2024 Dependence on supplemental oxygen (ICD-10 - Z99.81) Continue supplemental O2 through [facility] 11/17/2024 Chronic hypoxic respiratory failure (ICD-10 - J96.11) 07/28/2024 Dependence on supplemental oxygen (ICD-10 - Z99.81) Continue supplemental O2 through [facility] 03/17/2024 Dependence on supplemental oxygen (ICD-10 - Z99.81) Continue supplemental O2 through [facility] 03/17/2024 Chronic hypoxic respiratory failure (ICD-10 - J96.11) 07/28/2024 Chronic hypoxic respiratory failure (ICD-10 - J96.11) 11/17/2024 Essential hypertension (ICD-10 - I10) improved control 11/17/2024 Iron deficiency anemia, unspecified iron deficiency anemia type (ICD-10 - D50.9) discussed obtaining labs next time he is out for FU with supervisor sanding 07/28/2024 Essential hypertension (ICD-10 - I10) improved control 03/17/2024 Essential hypertension (ICD-10 - I10) improved control 03/17/2024 Abdominal distension (ICD-10 - R14.0) 07/28/2024 Hospital discharge follow-up (ICD-10 - Z09) records reviewed 11/17/2024 Benign prostatic hyperplasia with lower urinary tract symptoms, symptom details unspecified (ICD-10 - N40.1) stable symptoms 03/17/2024 Benign prostatic hyperplasia with lower urinary tract symptoms, symptom details unspecified (ICD-10 - N40.1) 11/17/2024 Other Patient contin ues to be homebound due to need for assistive device for mobility, high fall risk, dyspnea on exertion. Plan Of Treatment Pending Test Test Name Order Date X ray : Chest 08/29/2023 Insurance Providers Payer Name Payer Address Payer Phone Subscriber Number Group Number Insured Name Patient Relationship to Insured Coverage Start Date Coverage End Date [place] [address] [place] [address] [id number] Carroll Garcia Self - patient is the insured [facility] [address] [address] [place] [address] [id number] Carroll Garcia Self - patient is the insured Medical (General) History Medical History History ICD Code Histoplasmosis - treated previously with amphotericin Lung Infection Hypertension High Cholesterol COPD/ASTHMA BPH Atrial Fib MYAH Hospitalization History Reason Date(Month/Year) [facility] JULY 2023
--- OUTSIDE RECORDS SUMMARY | 2024-12-21 07:46 | XMS_ITS | Clinical Summary ---
Author Organization [facility] Address [address] [facility] [address] [place] [address] Phone Care Team Providers Care Shot Peen Operator Name Role Phone Unavailable Primary Care Provider Unavailabl e Allergies No known active allergies Medications metoprolol succinate (TOPROL-XL) 50 mg Oral Tablet Sustained Release 24 hr Take 50 mg by mouth daily. Active apixaban (ELIQUIS) 5 mg Oral Tablet Take 5 mg by mouth 2 times daily. Active rosuvastatin (CRESTOR) 20 mg Oral Tablet Take 20 mg by mouth daily. Active tamsulosin (FLOMAX) 0.4 mg Oral Capsule Take 0.4 mg by mouth nightly. Active finasteride (PROSCAR) 5 mg Oral Tablet Take 5 mg by mouth daily. Active albuterol (PROVENTIL HFA; VENTOLIN HFA) 90 mcg/actuation Inhl HFA Aerosol Inhaler Inhale 2 Puffs into the lungs 0800, 1200, 1600, 2000. Active albuterol (PROVENTIL HFA;VENTOLIN HFA) 90 mcg/actuation Inhl HFA Aerosol Inhaler Inhale 2 Puffs into the lungs every 4 hours as needed for Wheezing, Shortness of Breath or Bronchospasm. 8 g 11 4 Active predniSONE (DELTASONE) 10 mg Oral TabletIndicatio ns:Centrilobula r emphysema (HCC) Take 1 Tablet by mouth daily. 90 Tablet 11 4 Active budesonide-glyc opyr-formoterol (BREZTRI AEROSPHERE) 160-9-4.8 mcg/actuation Inhl HFA Aerosol Inhaler INHALE 2 PUFFS BY MOUTH 2 TIMES A DAY 32.1 g 09/11/202 5 Active Encounters Date Type Department Care Team Description 11/12/2024 Refill SEP Pulmonology [facility] [address] [facility] Building [address] [place] [phone] Matheus Childress MD Medication Refill from Last 3 Months Social History Tobacco Use Types Packs/Day Years Used Date Smoking Tobacco: Every Day Cigarettes 2 60.8 Started: 1963 Smokeless Tobacco: Never Tobacco Cessation:Ready to Q uit: Not Asked; Counseling Given: Not Answered Comments:Pt smoking about 3-4 cigs a day 11/18/2023 Sex and Gender Information Value Date Recorded Sex Assigned at Not on file Legal Sex Male 2:24 PM EST Gender Identity Not on file Sexual Orientation Not on file Last Filed Vital Signs Vital Sign Reading Time Taken Comments Blood Pressure 160/80 05/18/2024 10:42 AM EDT Pulse 83 05/18/2024 10:42 AM EDT Temperature - - Respiratory Rate - - Oxygen Saturation 95% 05/18/2024 10:42 AM EDT 2l@rest Inhaled Oxygen Concentration - - Weight 55.3 kg (122 lb) 05/18/2024 10:42 AM EDT Height 175.3 cm (5' 9 ) 05/18/2024 10:42 AM EDT Body Mass Index 18.02 05/18/2024 10:42 AM EDT Plan of Treatment Health Maintenance Due Date Last Done Comments Annual Wellness Exam 1948 Hepatitis C Screening 1963 RSV or 60+ (1 - 1-dose 75+ series) 2021 DTaP/TDaP/Td (3 - Td or Tdap) 09/15/2023 09/14/2013, 09/14/2013, 10/30/2004 Low Dose Lung Cancer Screening 06/23/2024 06/24/2023, 06/06/2023, 03/24/2023 COVID-19 Vaccine ( season) 2024 05/15/2020, 04/17/2020 Influenza Vaccine (#1) 2024 , 12/05/2022, 11/24/2021, Additional history exists Zoster Completed 11/11/2017, 09/2017, 03/03/2013 Pneumococcal Vaccine 50+ Completed 022, 01/31/2016, 12/22/2014 Hepatitis B Vaccine Aged Out No longe r eligible based on patient's age to complete this topic Meningococcal B Vaccine Aged Out No l onger eligible based on patient's age to complete this topic Procedures Procedure Name Priority Date/Time Associated Diagnosis Comments CT DELMY LUNG CANCER SCREENING FOLLOW UP Routine 06/24/2023 2:14 PM EDT Lung nodule from Last 3 Months or Most Recently Relevant to Health Maintenance Results * CT DELMY LUNG CANCER SCREENING FOLLOW UP (06/24/2023 2:14 PM EDT) Anatomical Region Laterality Modality Chest Computed Tomogra phy 06/24/2023 2:14 PM EDT Impressions 06/24/2023 4:09 PM EDT There is no enlarging pulmonary nodules. There are relatively well-circumscribed bilateral nodules that persist. Continued six-month follow-up recommended. RECOMMENDATION: Low Dose CT - 6 Mo A summary letter communicating these results will be mailed to the patient's address of record. CODE Lung Follow Up. Note: Radiology results need to be interpreted within a comprehensive clinical context. If you have questions about the radiology report, please contact the office of the ordering clinician. [email or web address] Narrative 06/24/2023 4:[address] DELMY LUNG CANCER SCREENING FOLLOW UP 06/24/2023 2:14 PM CLINICAL HISTORY: Asymptomatic patient meeting NCCN high risk criteria for lung screening. R91.1-Solitary pulmonary [id number]. COMPARISON: 06/06/2023, 03/24/2023 PROCEDURE COMMENTS: Noncontrast, low-dose, multidetector CT chest per department protocol. Interactive 3-D postprocessing done by the reviewing physician on a [employer] workstation, using Maximum intensity projections (MIPS) and I Had CancerO LUNG CAD for improved lesion detection. Dickens images archived to PACS. Dose 1 : CT DLP Total : 65.55 mGycm DLP Spiral Max : 61.89 mGycm Maximum CTDI Vol : 1.38 mGy FINDINGS: There is no axillary or mediastinal adenopathy. The heart chambers and great vessels normal caliber. The airways are grossly patent. There is no dense consolidation or pleural effusion. Pulmonary nodules: Stable 8mm nodule left upper lobe (axial 109). Stable well-circumscribed 1.3 cm fissural nodule on the left (axial 176). Lingular nodules have resolved. Improving bronchocentric nodules medial segment right middle lobe, anterior segment right upper lobe. There is a well-circumscribed 6 mm nodule right upper lobe (axial 179). Mild interval decrease in size of a 5 mm subpleural nodule right middle lobe (axial 245). No new enlarging pulmonary nodule. Coronary artery calcification: Mild. FOLLOW-UP CODE: Lung-RADS Category 3 : Probably Benign. Probably benign finding(s) - short term follow up suggested; includes nodules with a low likelihood of becoming a clinically active cancer. Procedure Note Herve Buckley MD - 06/24/2023 CT DELMY LUNG CANCER SCREENING FOLLOW UP 06/24/2023 2:14 PM CLINICAL HISTORY: Asymptomatic patient meeting NCCN high risk criteria forlung screening. R91.1-Solitary pulmonary [id number]. COMPARISON: 06/06/2023, 03/24/2023 PROCEDURE COMMENTS: Noncontrast, low-dose, multidetector CT chest perdepartment protocol. Interactive 3-D postprocessing done by the reviewing physicianon a [employer] workstation, using Maximum intensity projections (MIPS) and SYNGVyuUNG CAD for improved lesion detection. Dickens images archived to PACS. Dose 1 : CT DLP Total : 65.55 mGycm DLP Spiral Max : 61.89 mGycm Maximum CTDI Vol : 1.38 mGy FINDINGS: There is no axillary or mediastinal adenopathy. The heartchambers and great vessels normal caliber. The airways are grossly patent. There is no dense consolidation orpleural effusion. Pulmonary nodules: Stable 8mm nodule left upper lobe (axial 109). Stable well-circumscribed 1.3 cm fissural nodule on the left ([id number]). Lingular nodules have resolved. Improving bronchocentric nodules medial segment right middle lobe,anterior segment right upper lobe. There is a well-circumscribed 6 mm nodule right upper lobe (axial 179). Mild interval decrease in size of a 5 mm subpleural nodule right middlelobe (axial 245). No new enlarging pulmonary nodule. Coronary artery calcification: Mild. FOLLOW-UP CODE: Lung-RADS Category 3 : Probably Benign. Probably benign finding(s) - short term follow up suggested; includes nodules with a low likelihood of becoming a clinically active cancer. IMPRESSION: There is no enlarging pulmonary nodules. There are relatively well-circumscribed bilateral nodules that persist. Continued [id number] recommended. RECOMMENDATION: Low Dose CT - 6 Mo A summary letter communicating these results will be mailed to thepatient's address of record. CODE Lung Follow Up. Note: Radiology results need to be interpreted within a comprehensiveclinical context. If you have questions about the radiology report, please contactthe office of the ordering clinician. [email or web address] Matheus Childress MD IM CT ORDERABLES Final Res ult from Last 3 Months or Most Recently Relevant to Health Maintenance Insurance [employer] [place] [address] [employer] [place] PART A AND B
[2024-12-21] MEDS: METOPROLOL SUCCINATE XL 50MG TABLET 50 MG PO (08:58)
[2024-12-21] MEDS: APIXABAN 5MG TABLET 5 MG PO ×2 (08:58→20:47)
[2024-12-21] MEDS: PRIMIDONE 50MG TABLET 50 MG PO (08:58)
[2024-12-21] MEDS: guaiFENesin 200MG/10ML SYRUP UDC 200 MG PO ×2 (09:23→16:34)
--- NOTE | 2024-12-21 09:38 | HMH.PTEV ---
Physical Therapy Evaluation Rehab PT IP Evaluation Start: 12/20/24 04:31 Freq: ONCE Status: Active Protocol: Document 12/21/24 09:28 KRISHNA (Rec: 12/21/24 09:37 KRISHNA [id number]) Subjective/History History History Per H&P: 79-year-old male patient with history of COPD presents to ER with complaints of shortness of breath over the last week worsening on the day he presented. He has had a mild cough that is productive of yellow sputum. Denies fever chills or bodyaches. He was found to have an O2 sat of 85% on 2-1/2 L nasal cannula oxygen that he normally wears at home. He has had some lightheadedness and some falls. He denies injuries. But does complain of some pain posterior aspect of the left hip. Multiple skin tears have been noted. He does report occasionally having swelling in his lower extremities but did not feel like he had any recently and had not been taking his water pill. EMS administered 1 nebulizer treatment and IV Solu-Medrol. In the ER he received IV fluids although he did not receive the full sepsis bolus due to stable blood pressure and history of fluid retention. He received additional breathing treatments, Zosyn and Versed. He did require BiPAP and has tolerated it well. Blood gases did show hypercapnic respiratory failure. He was admitted here in July of this year with acute on chronic respiratory failure, right lower lobe pneumonia which cultures came back with Pseudomonas. He did follow-up with pulmonology outpatient but it appears he has not had any further follow-up after the first visit. X-ray and CT of the pelvis reportedly negative for acute injury however there is mention of a bladder lesion on the CT pelvis. CT chest shows severe bullous emphysema. Subjective Subjective Pt reports he lives home alone in a home with KATYA with HRs. Pt normally IND with no use of AD. Pt denies any falls in past 30 days. New diagnosis of No cancer in past 12 months? [facility] How much help from another person do you currently need... Turning from your None back to your side while in a flat bed without using bedrails? Moving from lying on None back to sitting on the side of a flat bed without using bedrails? Moving to and from a A little bed to a chair ( including a wheelchair)? Standing up from a A little chair using your arms? (e.g., wheelchair, bedside chair) Walking in hospital A little room? Climbing 3-5 steps A little with a railing? Mobility Score 20 Mobility Level [facility] Mobility 6 Walk 10 steps or more Mobility Calculator Rehab PT IP Eval Objective Appearance Patient Behavior Appropriate,Cooperative Patient Orientation Person,Place Difficulty following none instructions Speech Pattern Clear Ambulation Patient Able to No Ambulate Balance Ability to Arise Able, uses arms to help Sitting Balance Steady, safe Transfers Bed Transfer Ability Supervision/Stand by Rehab PT IP prob,goals,plan Problems Date of Evaluation: 12/21/24 PT IP Problems Bed Mobility,Transfers,Gait,Balance,Self care,Safety Rehab Potential Rehab Potential Good Plan PT Intervention Plan Bed Mobility,Transfers,Gait,Balance,Self care,Safety, Therapeutic Exercise Other Intervention 1-2 times Plan PT Plan Frequency Daily Duration LOS Discharge Goals Bed Transfer Ability Independent Sit to Stand Chair Independent Transfer Ability Ambulation Assistive Rolling Walker Device Ambulation Distance 20 (feet) Discharge Plan PT Discharge Plan Pt presents below baseline in functional mobility, strength, and endurance and would benefit from skilled acute care PT while at [facility] to address deficits. Pt not able to perform stand or ambulation d/t increased O2 demand, SOB, and general fatigue when sitting EOB. At this time PT recommending inpatient rehab placement upon d/c from [facility]. Pt may be safe to return home with HH if he is able to demo safe household level ambulation while at [facility]. Eval Complexity Eval Charge Codes 16588 - Moderate Complexity PHYSICIAN CERTIFICATION: I certify the specified therapy services for Carroll Garcia are required, authorized, and reviewed every 30 days.
--- NOTE | 2024-12-21 09:45 | EXP.PULM.CON ---
History of Present Illness History of present illness: Mr. Garcia is a 79-year-old male greater than 30 PPD COPD chronic hypoxic respiratory failure bullous emphysema Presented to the ER with 1 week history of worsening respiratory distress pulmonary was called for further evaluation and management. Afebrile. Hemodynamically stable. Mild neutrophilic predominant leukocytosis improving. Admits subacute onset worsening respiratory symptoms admits worsening cough and increased productive phlegm. [facility] Disclaimer: The information contained in this section may have been updated after the patient was seen, as this information can be updated by other users. Medical History Encounter for screening for malignant neoplasm of lung Alcohol withdrawal seizure Anemia Multiple lung nodules on CT COPD mixed type Smoking greater than 30 pack years Pulmonary emphysema Appendicitis History of prostate disorder GERD (gastroesophageal reflux disease) Hypertension Afib COPD (chronic obstructive pulmonary disease) Surgical History H/O foot surgery History of appendectomy Family History Other Family history of COPD (chronic obstructive pulmonary disease) Family history of hyperlipidemia Family history of hypertension Family history of myocardial infarction Social History (Updated 08/05/24 @ 13:05 by CHARLOTTE Krugre) Smoking Status: Current every day smoker tobacco type: cigarettes packs per day: 1 pack-years: 62 alcohol intake: former substance use type: denies use current occupational status: retired Travel in the last 8 weeks?: None Review of Systems Constitutional Constitutional: Reports fatigue and Denies headache(s) Eyes Eyes: Denies itchy eyes and Denies loss of vision ENT Ears, Nose, Mouth, and Throat: Reports dizziness, Denies headache(s), Denies lip swelling and Denies throat swelling *Cardiovascular Cardiovascular: Reports dyspnea and Reports dyspnea on exertion *Respiratory Respiratory: Denies change in phlegm color, Reports chest congestion, Reports cough, Reports dyspnea, Reports dyspnea on exertion, Reports excessive phlegm production, Denies hemoptysis, Denies pain on inspiration, Denies pain with cough and Reports wheezing *Gastrointestinal Gastrointestinal: Denies abdominal pain, Denies belching and Denies cramping *Musculoskeletal Musculoskeletal: Reports back pain, Reports myalgias and Reports other (No small joint swelling or Pain) *Neurologic Neurologic: Denies confusion, Reports dizziness, Denies headache(s) and Denies loss of vision Psychiatric Psychiatric: Denies confusion Endocrine Endocrine: Reports fatigue and Denies heat intolerance Hematologic/Lymphatic Hematologic/Lymphatic: Denies easy bleeding and Denies lymphadenopathy Allergic/Immunologic Allergic/Immunologic: Denies itchy eyes, Denies lip swelling, Denies throat swelling and Reports wheezing Pulmonology Exam Inpatient Vital signs and Labs for Last 24 Hours: Temp Pulse Resp BP Pulse Ox O2 Del Method O2 Flow Rate 98.0 F 89 13 140/62 96 Nasal Cannula 2 12/21/24 08:03 12/21/24 08:03 12/21/24 08:03 12/21/24 08:03 12/21/24 08:03 12/21/24 09:08 12/21/24 09:08 FiO2 28 12/21/24 04:34 Laboratory Results - last 24 hr 12/20/24 09:29: Urine Color Yellow, Urine Appearance Clear, Urine pH 7.0, Ur Specific [place] 1.010, Urine Protein Negative, Urine Glucose (UA) Negative, Urine Ketones Negative, Urine Blood Trace-i, Urine Nitrate Negative, Urine Bilirubin Negative, Urine Urobilinogen 0.2, Ur Leukocyte Esterase Trace, Urine RBC Occasional, Urine WBC Occasional, Ur Squamous Epith Cells Occasional 12/21/24 05:10: WBC 7.7, RBC 3.77 L, Hgb 11.2 L, Hct 35.3 L, MCV 93.6, MCH 29.7, MCHC 31.7 L, RDW 13.8, Plt Count 200, MPV 9.6, Neut % (Auto) 82.6 H, Lymph % (Auto) 9.5 L, [place] % (Auto) 7.2, Eos % (Auto) 0.1, Baso % (Auto) 0.1, Neut # (Auto) 6.3, Lymph # (Auto) 0.7, Burnett # (Auto) 0.6, Eos # (Auto) 0.0, Baso # (Auto) 0.0, Sodium 135 L, Potassium 3.8 D, Chloride 99, Carbon Dioxide 32 H, Anion Gap 7.8, BUN 24 H D, Creatinine 1.00 D, Estimated Creat Clear 50, Estimated GFR 72, Est GFR ( Amer) 87 D, Glucose 116 H, Calcium 8.3 L, Total Bilirubin 0.3, AST 29, ALT 20, Alkaline Phosphatase 74, Total Protein 6.0 L, Albumin 3.2 L, Globulin 2.8, Albumin/Globulin Ratio 1.1 I & O for Labs for Last 24 Hours: Intake & Output 12/18/24 12/19/24 12/20/24 12/21/24 23:59 23:59 23:59 23:59 Intake Total 2465.75 / 2465.75 320 / 320 Output Total 320 / 320 500 / 500 Balance 2145.75 / 2145.75 -180 / -180 Weight 130 lb 9.6 oz 129 lb 3.2 oz Microbiology Reports for the Last 24 Hours: Microbiology 12/20/24 00:18 Blood Blood Culture - Preliminary NO GROWTH AFTER 24 HOURS 12/20/24 00:10 Blood Blood Culture - Preliminary NO GROWTH AFTER 24 HOURS Constitutional: Present moderate distress Head: Present normocephalic and atraumatic ENT: Present normal exam, normal oropharynx and mucous membranes moist Neck: Present normal inspection and full ROM Respiratory: Present prolonged expiratory phase, respiratory distress, distant breath sounds and able to speak in complete sentences; Absent crackles or diminished air movement Cardiac: Present S1/S2, Tachycardia and radial pulses present GI: Present soft and distention; Absent tenderness or guarding Skin: Present intact; Absent cyanosis or jaundice Neuro: Present alert, awake and oriented x 3 Extremities: Present normal inspection; Absent clubbing or cyanosis Psychiatric: Present normal affect and cooperative Meds Home Medications and Allergies Home Medications ?Medication ?Instructions ?Recorded ?Confirmed ?Type apixaban 5 mg tablet 5 mg PO BID 07/24/22 12/20/24 History albuterol sulfate 90 mcg/actuation 2 puff inhalation Q4HP PRN 07/29/23 12/20/24 Rx aerosol inhaler Shortness Of Breath 30 days #8.5 grams pantoprazole 40 mg tablet,delayed 40 mg PO DAILY 30 days #30 tabs 07/29/23 12/20/24 Rx release budesonide 160 mcg-glycopyr 9 2 puff inhalation BID 07/20/24 12/20/24 History mcg-formot 4.8 mcg/actuation HFA inhaler (Breztri Aerosphere) famotidine 40 mg tablet 40 mg PO HS 07/20/24 12/20/24 History furosemide 20 mg tablet 20 mg PO DAILYP PRN fluid retention 07/20/24 12/20/24 History ipratropium 20 mcg-albuterol 100 1 puff inhalation QID 07/20/24 12/20/24 History mcg/actuation mist for inhalation (Combivent Respimat) metoprolol succinate 50 mg 50 mg PO DAILY 07/20/24 12/20/24 History tablet,extended release 24 hr primidone 50 mg tablet 50 mg PO DAILY 07/20/24 12/20/24 History ipratropium 0.5 mg-albuterol 3 mg 3 ml inhalation Q6HP PRN Shortness 07/23/24 12/20/24 Rx (2.5 mg base)/3 mL nebulization Of Breath 30 days #180 mL soln New Prescriptions to Start Prescriptions: Allergies Allergy/AdvReac Type Severity Reaction Status Date / Time No Known Allergies Allergy Verified 08/05/24 12:54 Results Laboratory Findings 12/21/24 05:10 12/21/24 05:10 Abnormal lab findings: Abnormal Labs 12/20/24 12/20/24 12/20/24 00:04 00:12 05:15 WBC 12.1 H RBC 4.37 L 3.85 L Hgb 13.0 L 11.6 L D Hct 41.0 L 36.0 L MCHC 31.7 L Neut % (Auto) 83.4 H 95.4 H Lymph % (Auto) 3.3 L Burnett % (Auto) 0.9 L Eos % (Auto) 0.0 L Baso % (Auto) 0.0 L Neut # (Auto) 10.1 H 8.9 H Lymph # (Auto) 0.3 L Neutrophils % (Manual) 98 H Lymphocytes % (Manual) 1 L Monocytes % (Manual) 1 L VBG pH 7.24 L VBG pCO2 66.0 H VBG pO2 45.0 H VBG Total CO2 29.4 H 29.6 H VBG O2 Saturation 84.3 H VBG Base Excess 3.4 H Sodium 134 L 132 L Chloride 94 L 95 L Carbon Dioxide 32 H BUN Glucose 110 H Calcium 8.1 L Total Protein Albumin 3.4 L D 12/21/24 05:10 WBC RBC 3.77 L Hgb 11.2 L Hct 35.3 L MCHC 31.7 L Neut % (Auto) 82.6 H Lymph % (Auto) 9.5 L Burnett % (Auto) Eos % (Auto) Baso % (Auto) Neut # (Auto) Lymph # (Auto) Neutrophils % (Manual) Lymphocytes % (Manual) Monocytes % (Manual) VBG pH VBG pCO2 VBG pO2 VBG Total CO2 VBG O2 Saturation VBG Base Excess Sodium 135 L Chloride Carbon Dioxide 32 H BUN 24 H D Glucose 116 H Calcium 8.3 L Total Protein 6.0 L Albumin 3.2 L Assessment and Plan *Assessment and plan (1) Acute and chronic respiratory failure with hypercapnia: Status: Acute Category: Medical Code(s): J96.22 - Acute and chronic respiratory failure with hypercapnia (2) Acute exacerbation of chronic obstructive pulmonary disease: Status: Acute Category: Medical Code(s): J44.1 - Chronic obstructive pulmonary disease with (acute) exacerbation (3) CAP (community acquired pneumonia): Status: Resolved Category: Medical Code(s): J18.9 - Pneumonia, unspecified organism Plan Mr. Garcia is a 79-year-old male greater than 30 PPD COPD chronic hypoxic respiratory failure bullous emphysema Presented to the ER with 1 week history of worsening respiratory distress pulmonary was called for further evaluation and management. Afebrile. Hemodynamically stable. Mild neutrophilic predominant leukocytosis improving. Admits subacute onset worsening respiratory symptoms admits worsening cough and increased productive phlegm. Blood gas upon admission mild hypercarbic respiratory failure with ABG 7.24 and pCO2 66.0, improved with brief noninvasive ventilatory therapy. CTA upon admission no pulmonary embolism. Diffuse emphysematous changes. No new dense consolidative/airspace changes. Currently receiving Zosyn along with nebulization therapies and steroids for presumed COPD exacerbation. Most recent sputum cultures in July 2024 Serratia and Pseudomonas sensitive to levofloxacin. Plan: Continue Breztri inhaler along with DuoNebs 4 times daily scheduled Antibiotics can be weaned to levofloxacin to complete a total of 5-day course. Obtain sputum culture with induction. Continue prednisone 40 mg daily to complete a total of 5-day course Patient last admission for hypercarbic respiratory failure July 2024. Will follow as an outpatient basis to further determine the need for noninvasive ventilatory therapy Incentive spirometry and flutter valve. # Thank you for involving pulmonary in this patient care. Will continue to follow.
[2024-12-21] MEDS: OXYMETAZOLINE NASAL SPRAY 0.05% 15ML NS (09:47)
--- NOTE | 2024-12-21 10:00 | HMH.PTEV ---
Physical Therapy Evaluation Rehab PT IP Evaluation Start: 12/20/24 04:31 Freq: ONCE Status: Active Protocol: Document 12/21/24 09:28 KRISHNA (Rec: 12/21/24 09:37 KRISHNA [id number]) Subjective/History History History Per H&P: 79-year-old male patient with history of COPD presents to ER with complaints of shortness of breath over the last week worsening on the day he presented. He has had a mild cough that is productive of yellow sputum. Denies fever chills or bodyaches. He was found to have an O2 sat of 85% on 2-1/2 L nasal cannula oxygen that he normally wears at home. He has had some lightheadedness and some falls. He denies injuries. But does complain of some pain posterior aspect of the left hip. Multiple skin tears have been noted. He does report occasionally having swelling in his lower extremities but did not feel like he had any recently and had not been taking his water pill. EMS administered 1 nebulizer treatment and IV Solu-Medrol. In the ER he received IV fluids although he did not receive the full sepsis bolus due to stable blood pressure and history of fluid retention. He received additional breathing treatments, Zosyn and Versed. He did require BiPAP and has tolerated it well. Blood gases did show hypercapnic respiratory failure. He was admitted here in July of this year with acute on chronic respiratory failure, right lower lobe pneumonia which cultures came back with Pseudomonas. He did follow-up with pulmonology outpatient but it appears he has not had any further follow-up after the first visit. X-ray and CT of the pelvis reportedly negative for acute injury however there is mention of a bladder lesion on the CT pelvis. CT chest shows severe bullous emphysema. Subjective Subjective Pt reports he lives home alone in a home with KATYA with HRs. Pt normally IND with no use of AD. Pt does report a hx of falls in past 6 months. New diagnosis of No cancer in past 12 months? [facility] How much help from another person do you currently need... Turning from your None back to your side while in a flat bed without using bedrails? Moving from lying on None back to sitting on the side of a flat bed without using bedrails? Moving to and from a A little bed to a chair ( including a wheelchair)? Standing up from a A little chair using your arms? (e.g., wheelchair, bedside chair) Walking in hospital A little room? Climbing 3-5 steps A little with a railing? Mobility Score 20 Mobility Level [facility] Mobility 6 Walk 10 steps or more Mobility Calculator Rehab PT IP Eval Objective Appearance Patient Behavior Appropriate,Cooperative Patient Orientation Person,Place Difficulty following none instructions Speech Pattern Clear Ambulation Patient Able to No Ambulate Balance Ability to Arise Able, uses arms to help Sitting Balance Steady, safe Transfers Bed Transfer Ability Supervision/Stand by Rehab PT IP prob,goals,plan Problems Date of Evaluation: 12/21/24 PT IP Problems Bed Mobility,Transfers,Gait,Balance,Self care,Safety Rehab Potential Rehab Potential Good Plan PT Intervention Plan Bed Mobility,Transfers,Gait,Balance,Self care,Safety, Therapeutic Exercise Other Intervention 1-2 times Plan PT Plan Frequency Daily Duration LOS Discharge Goals Bed Transfer Ability Independent Sit to Stand Chair Independent Transfer Ability Ambulation Assistive Rolling Walker Device Ambulation Distance 20 (feet) Discharge Plan PT Discharge Plan Pt presents below baseline in functional mobility, strength, and endurance and would benefit from skilled acute care PT while at [facility] to address deficits. Pt not able to perform stand or ambulation d/t increased O2 demand, SOB, and general fatigue when sitting EOB. At this time PT recommending inpatient rehab placement upon d/c from [facility]. Pt may be safe to return home with HH if he is able to demo safe household level ambulation while at [facility]. Eval Complexity Eval Charge Codes 81317 - Moderate Complexity PHYSICIAN CERTIFICATION: I certify the specified therapy services for Carroll Garcia are required, authorized, and reviewed every 30 days.
[2024-12-21] MEDS: FLUTICASONE PROP 50MCG NASAL SPRAY 16GM 1 SPRAY NS ×2 (10:15→20:47)
--- NOTE | 2024-12-21 11:49 | SW/DCPLANNER ---
Addendum entered by Jaclyn Douglas 12/22/24 10:59: Patient is not interested in placement and prefers to return home w/ family assistance and [facility]. Patient expressed no needs at this time. Addendum entered by Jaclyn Douglas 12/21/24 13:36: Therapy is continuing to recommend placement for this patient. Patient is not agreeable to placement at this time and prefers to return home w/ home health services. I did have a lengthy discussion w/ patient regarding the recommendation of placement and risk of returning home. CM will continue to follow up w/ this patient. Original Note: I spoke w/ patient regarding plans once medically stable for discharge. PT evaluated patient and recommended SNF level of care. Patient stated that sitters come in twice a week to help him at home but does live at home alone. Patient prefers to return home w/ home health services and assistance from sitters. I will follow up w/ patient after afternoon therapy session. Per MD patient could be ready for discharge tomorrow.
[2024-12-21] MEDS: SODIUM CHLORIDE 3% 15ML NEB 3 ML IH (13:22)
--- NOTE | 2024-12-21 13:24 | HMH.OTEV ---
OT Evaluation Rehab OT IP Evaluation Start: 12/20/24 04:31 Freq: ONCE Status: Active Protocol: Document 12/21/24 13:18 RMREGGIE (Rec: 12/21/24 13:24 [facility] [id number]) Rehab OT IP Assessment Subjective History Per H&P: 79-year-old male patient with history of COPD presents to ER with complaints of shortness of breath over the last week worsening on the day he presented. He has had a mild cough that is productive of yellow sputum. Denies fever chills or bodyaches. He was found to have an O2 sat of 85% on 2-1/2 L nasal cannula oxygen that he normally wears at home. He has had some lightheadedness and some falls. He denies injuries. But does complain of some pain posterior aspect of the left hip. Multiple skin tears have been noted. He does report occasionally having swelling in his lower extremities but did not feel like he had any recently and had not been taking his water pill. EMS administered 1 nebulizer treatment and IV Solu-Medrol. In the ER he received IV fluids although he did not receive the full sepsis bolus due to stable blood pressure and history of fluid retention. He received additional breathing treatments, Zosyn and Versed. He did require BiPAP and has tolerated it well. Blood gases did show hypercapnic respiratory failure. He was admitted here in July of this year with acute on chronic respiratory failure, right lower lobe pneumonia which cultures came back with Pseudomonas. He did follow-up with pulmonology outpatient but it appears he has not had any further follow-up after the first visit. X-ray and CT of the pelvis reportedly negative for acute injury however there is mention of a bladder lesion on the CT pelvis. CT chest shows severe bullous emphysema. Subjective Pt reports he lives home alone in a home with KATYA with HRs. Pt normally IND with functional transfers without AE ( walker or cane) Pt claims he is usually independent with dressing, bathing, and feeding. He is only able to complete sponge baths due to decreased endurance. Pt is able to fix himself simple meals, but he does hire a person to come in twice a week to complete heavier vp project and grocery shopping. Pt does report a hx of falls in past 6 months. Pt able to complete bed mobility to go from supine to sitting at eob with sba. However, once he sat at eob pt's o2 dropped to 83% for several minutes requiring an increase in o2 up to 3L per nursing. After re- education of pursed lip breathing it returned to 90%. Pt was able to sit at eob with sba and demonstrated good static sitting balance. He was independent with bed mobility to go from sitting to supine. Objective Patient Orientation Person,Place,Birthday Right Upper Min Limitation <25% Extremity Gross ROM Left Upper Extremity Min Limitation <25% Gross ROM Shoulder ROM Muscle Weakness Limitations Elbow ROM Muscle Weakness Limitations Wrist Limitations of Muscle Weakness Range of Motion Bed Mobility bed mobility-scooting,bed mobility - supine/sit Rehab OT IP prob,goals,plan Problems Date of Evaluation: 12/21/24 OT IP Problems Bed Mobility,Transfers,Balance,Self care,Safety Rehab Potential Rehab Potential Good Equipment Needs Assistive Devices Rolling / Wheeled Walker Plan OT intervention Plan Bed Mobility,Transfers,Balance,Self care,Safety, Therapeutic Exercise OT Plan Frequency Daily Duration LOS Discharge Goals Bed Mobility Ability Standby Assistance Sit to Stand Chair Contact Guard/Hand Hold Transfer Ability Chair Transfer Contact Guard/Hand Hold Ability Chair Transfer Sit to/from Ambulatory Technique Chair Transfer Rolling Walker Assistive Devices Lower Body Dressing Minimal Assistance Ability Performing Toilet Minimal Assistance Hygiene Ability Overall Commode/ Standby Assistance,Contact Guard Toilet Transfer Ability Commode/Toilet Sit to/from Ambulatory Transfer Technique Discharge Plan OT Discharge Plan Pt presents below baseline in functional mobility, strength, ADL independence, and endurance and would benefit from skilled acute care OT while at [facility] to address deficits. Pt not able to perform functional transfer d/t increased O2 demand, SOB, and general fatigue when sitting EOB. At this time OT recommending inpatient rehab placement upon d/c from [facility]. Pt may be safe to return home with HH if he is able to demo improvement with overall functional ability while at [facility]. Eval Complexity Eval Charge Codes 89838 - Moderate Complexity PHYSICIAN CERTIFICATION: I certify the specified therapy services for Carroll Garcia are required, authorized, and reviewed every 30 days.
--- NOTE | 2024-12-21 16:24 | EXP.ACUTE.PN ---
Subjective *Date: 12/21/24 *Time: 16:24 Interval history: Still feeling short of breath. Complaining of runny nose and postnasal drip. Feels he gets choked up easily. Requesting nasal spray. Stable on 2 L oxygen this morning. Did wear BiPAP on and off overnight. Afebrile. Still with prominent cough. No nausea or vomiting. Medical Exam Vital signs and Labs for Last 24 Hours: Vital Signs Temp Pulse Resp BP Pulse Ox O2 Del Method O2 Flow Rate 12/21/24 16:00 73 19 181/91 H 92 L Nasal Cannula 2 12/21/24 15:00 Nasal Cannula 3 12/21/24 14:02 100 H 24 192/103 H 96 Nasal Cannula 2 12/21/24 14:00 Nasal Cannula 3 12/21/24 13:26 71 18 12/21/24 13:26 72 12/21/24 13:26 71 12/21/24 13:00 Nasal Cannula 3 12/21/24 12:00 80 12/21/24 12:00 79 21 174/88 H 91 L 12/21/24 11:08 95 Nasal Cannula 2 12/21/24 11:07 88 12/21/24 11:07 83 12/21/24 11:00 Nasal Cannula 2 12/21/24 10:01 91 H 20 154/76 H 90 L Nasal Cannula 2 12/21/24 09:08 Nasal Cannula 2 12/21/24 09:00 Nasal Cannula 2 12/21/24 08:03 89 13 96 12/21/24 08:03 98.0 F 89 19 140/62 93 L Nasal Cannula 2 12/21/24 08:00 100 H 12/21/24 08:00 89 18 93 L 12/21/24 08:00 95 Nasal Cannula 2 12/21/24 07:00 Nasal Cannula 2 12/21/24 06:55 Nasal Cannula 2 12/21/24 06:11 79 12/21/24 06:11 71 12/21/24 06:11 99 Nasal Cannula 3 12/21/24 06:00 65 13 169/79 H 98 Nasal Cannula 2.5 12/21/24 05:00 Nasal Cannula 3 12/21/24 04:34 88 12/21/24 04:34 85 12/21/24 04:34 99 BiPAP 12/21/24 04:34 12/21/24 04:30 97 H 20 90 L 12/21/24 04:15 78 17 82 L 12/21/24 04:00 80 12/21/24 04:00 Nasal Cannula 12/21/24 04:00 159/72 H 12/21/24 04:00 97.6 F 72 15 159/72 H 94 L 12/21/24 03:45 79 22 97 12/21/24 03:30 71 15 98 12/21/24 03:15 73 15 98 12/21/24 03:00 81 16 96 12/21/24 03:00 Nasal Cannula 12/21/24 02:00 72 15 154/68 H 96 12/21/24 02:00 97 Nasal Cannula 3 12/21/24 02:00 Nasal Cannula 3 12/21/24 01:00 78 14 97 12/21/24 01:00 Nasal Cannula 3 12/21/24 00:41 70 12/21/24 00:41 76 12/21/24 00:03 98 Nasal Cannula 3 12/21/24 00:03 Nasal Cannula 3 12/21/24 00:00 70 12/21/24 00:00 73 15 160/75 H 96 12/20/24 23:02 Nasal Cannula 5 12/20/24 23:00 79 18 97 12/20/24 22:05 96 BiPAP 12/20/24 22:04 12/20/24 22:00 80 21 175/88 H 96 12/20/24 22:00 BiPAP 12/20/24 21:34 76 12/20/24 21:34 79 12/20/24 21:00 73 20 94 L 12/20/24 21:00 Nasal Cannula 12/20/24 20:10 94 L Nasal Cannula 3 12/20/24 20:10 Nasal Cannula 3 12/20/24 20:00 97 H 12/20/24 20:00 73 19 162/77 H 96 12/20/24 19:00 80 19 96 12/20/24 18:50 Nasal Cannula 3 12/20/24 18:00 Nasal Cannula 3 12/20/24 17:54 76 12/20/24 17:54 79 12/20/24 17:54 94 L Nasal Cannula 3 12/20/24 17:00 Nasal Cannula 2 12/20/24 16:57 97.8 F FiO2 12/21/24 16:00 10/20/25 15:00 12/21/24 14:02 12/21/24 14:00 12/21/24 13:26 12/21/24 13:26 12/21/24 13:26 12/21/24 13:00 12/21/24 12:00 12/21/24 12:00 12/21/24 11:08 12/21/24 11:07 12/21/24 11:07 12/21/24 11:00 12/21/24 10:01 12/21/24 09:08 12/21/24 09:00 12/21/24 08:03 12/21/24 08:03 12/21/24 08:00 12/21/24 08:00 12/21/24 08:00 12/21/24 07:00 12/21/24 06:55 12/21/24 06:11 12/21/24 06:11 12/21/24 06:11 12/21/24 06:00 12/21/24 05:00 12/21/24 04:34 12/21/24 04:34 12/21/24 04:34 28 12/21/24 04:34 28 12/21/24 04:30 12/21/24 04:15 12/21/24 04:00 12/21/24 04:00 12/21/24 04:00 12/21/24 04:00 12/21/24 03:45 12/21/24 03:30 12/21/24 03:15 12/21/24 03:00 12/21/24 03:00 12/21/24 02:00 12/21/24 02:00 12/21/24 02:00 12/21/24 01:00 12/21/24 01:00 12/21/24 00:41 12/21/24 00:41 12/21/24 00:03 12/21/24 00:03 12/21/24 00:00 12/21/24 00:00 12/20/24 23:02 12/20/24 23:00 12/20/24 22:05 28 12/20/24 22:04 28 12/20/24 22:00 12/20/24 22:00 12/20/24 21:34 12/20/24 21:34 12/20/24 21:00 12/20/24 21:00 12/20/24 20:10 12/20/24 20:10 12/20/24 20:00 12/20/24 20:00 12/20/24 19:00 12/20/24 18:50 12/20/24 18:00 12/20/24 17:54 12/20/24 17:54 12/20/24 17:54 12/20/24 17:00 12/20/24 16:57 Intake and Output 12/21/24 12/21/24 12/21/24 07:59 15:59 23:59 Intake Total 200 / 540 340 / 540 Output Total 500 / 500 Balance -300 / 40 340 / 40 Intake: Intake, Oral Amount 240 / 240 Intake, Total IV Amount 200 / 300 100 / 300 Piperacillin/Tazo 4.5 gm In 0.9 200 / 300 100 / 300 % Sodium Chloride 100 ml @ 200 mls/hr IV Q6H [facility] Rx#:[id number] Output: Output, Urine Amount 500 / 500 Other: Number of Unmeasured Voids 0 Weight 58.604 kg Patient Weight 12/21/24 23:59 Weight 58.604 kg Laboratory Results - last 24 hr 12/21/24 05:10: WBC 7.7, RBC 3.77 L, Hgb 11.2 L, Hct 35.3 L, MCV 93.6, MCH 29.7, MCHC 31.7 L, RDW 13.8, Plt Count 200, MPV 9.6, Neut % (Auto) 82.6 H, Lymph % (Auto) 9.5 L, [place] % (Auto) 7.2, Eos % (Auto) 0.1, Baso % (Auto) 0.1, Neut # (Auto) 6.3, Lymph # (Auto) 0.7, [place] # (Auto) 0.6, Eos # (Auto) 0.0, Baso # (Auto) 0.0, Sodium 135 L, Potassium 3.8 D, Chloride 99, Carbon Dioxide 32 H, Anion Gap 7.8, BUN 24 H D, Creatinine 1.00 D, Estimated Creat Clear 50, Estimated GFR 72, Est GFR ( Amer) 87 D, Glucose 116 H, Calcium 8.3 L, Total Bilirubin 0.3, AST 29, ALT 20, Alkaline Phosphatase 74, Total Protein 6.0 L, Albumin 3.2 L, Globulin 2.8, Albumin/Globulin Ratio 1.1 I & O for Labs for Last 24 Hours: Intake & Output 12/18/24 12/19/24 12/20/24 12/21/24 23:59 23:59 23:59 23:59 Intake Total 2465.75 / 2465.75 540 / 540 Output Total 320 / 320 500 / 500 Balance 2145.75 / 2145.75 40 / 40 Weight 59.239 kg 58.604 kg Microbiology Reports for the Last 24 Hours: Microbiology 12/20/24 00:18 Blood Blood Culture - Preliminary NO GROWTH AFTER 24 HOURS 12/20/24 00:10 Blood Blood Culture - Preliminary NO GROWTH AFTER 24 HOURS Constitutional: Present mild distress, cachectic and chronically ill appearing Head: Present atraumatic and normocephalic ENT: Present normal exam Respiratory: Present prolonged expiratory phase, rhonchi, wheezes and diminished air movement; Absent crackles Comment:: Barrel chested Cardiac: Present Reg Rate and Rhythm GI: Present soft and normal bowel sounds; Absent distention or tenderness Extremities: Present normal inspection and full ROM Comment:: Sarcopenia Skin: Present intact; Absent erythema Neuro: Present Grossly Intact, alert, awake, oriented x 3 and moves all extremities Assessment and Plan *Assessment and plan (1) Acute and chronic respiratory failure with hypercapnia: Status: Acute Category: Medical Code(s): J96.22 - Acute and chronic respiratory failure with hypercapnia (2) Acute exacerbation of chronic obstructive airways disease: Status: Acute Category: Medical Code(s): J44.1 - Chronic obstructive pulmonary disease with (acute) exacerbation (3) Fall: Status: Acute Qualifiers: Encounter type: initial encounter Qualified Code(s): W19.XXXA - Unspecified fall, initial encounter Category: Medical Code(s): W19.XXXA - Unspecified fall, initial encounter (4) Hip pain: Status: Acute Qualifiers: Laterality: left Qualified Code(s): M25.552 - Pain in left hip Category: Medical Code(s): M25.559 - Pain in unspecified hip (5) Hypertension: Status: Chronic Qualifiers: Hypertension type: unspecified Qualified Code(s): I10 - Essential (primary) hypertension Category: Medical Code(s): I10 - Essential (primary) hypertension (6) Afib: Status: Acute Qualifiers: Atrial fibrillation type: unspecified chronic Qualified Code(s): I48.20 - Chronic atrial fibrillation, unspecified Category: Medical Code(s): I48.91 - Unspecified atrial fibrillation (7) Chronic anticoagulation: Status: Acute Category: Medical Code(s): Z79.01 - [facility] (current) use of anticoagulants (8) Abnormal CT scan, pelvis: Status: Acute Category: Medical Code(s): R93.5 - Abnormal findings on diagnostic imaging of other abdominal regions, including retroperitoneum (9) Stage 4 very severe COPD by GOLD classification: Status: Acute Category: Medical Code(s): J44.9 - Chronic obstructive pulmonary disease, unspecified (10) Severe protein-calorie malnutrition: Status: Acute Category: Medical Code(s): E43 - Unspecified severe protein-calorie malnutrition Plan 79-year-old male with stage IV Gold COPD. Presented with acute respiratory failure with hypoxia and hypercarbia. Initially on BiPAP, able to wean to baseline nasal oxygen at 2 L. Showing slow improvement. Pulmonology assisting with care today. Anticipate discharge in the next day or 2. Problems addressed as follows: Acute on chronic hypoxemic respiratory failure with acute hypercapnia Gold stage IV severe COPD COPD exacerbation Bullous emphysema ? Initially on BiPAP, weaned to baseline 2 L nasal cannula. However, continues to have significant wheezing and increased work of breathing. - Discussed case with pulmonology, continue Breztri inhaler along with DuoNebs 4 times a day scheduled. Weaned to levofloxacin for antibiotics to complete 5 days. Sputum culture pending. Continue prednisone 40 mg daily to complete 5 days of therapy. - Continue incentive spirometry and flutter valve -Has severely dilated bulla with his emphysematous changes and severe destruction of lungs noted on my review of CT of chest -White count normal at 7.7, hemoglobin 11.2. - Repeat CBC, CMP, magnesium ordered for the morning. - Initiate Robitussin as needed every 6 hours. For postnasal drip, will initiate Afrin twice daily today along with Flonase once daily A-fib Hypertension -Continue home Eliquis 5 mg twice daily, Lasix 40mg IV once today, metoprolol succinate 50 mg daily BPH: Continue tamsulosin 0.4 mg twice daily Tremor: Continue primidone 50 mg daily Severe protein calorie malnutrition/pulmonary cachexia: Complicates all aspects of his care. High-protein supplementation. DNR Vj Regular diet
[2024-12-21] MEDS: FUROSEMIDE 40MG/4ML VIAL 40 MG IV (16:34)
[2024-12-21] MEDS: TAMSULOSIN 0.4MG CAPSULE 0.8 MG PO (20:50)
[2024-12-21] MEDS: PANTOPRAZOLE 40MG VIAL 40 MG IV (20:54)
[2024-12-21] MEDS: IRBESARTAN 75MG TABLET 75 MG PO (20:59)
[2024-12-21] MEDS: ACETAMINOPHEN 325MG TAB 650 MG PO (22:13)
[2024-12-22] VITALS (13 sets, daily range): BP systolic 155–177; BP diastolic 84–95; PULSE 70–94; RESP 14–22; TEMP 36.4–36.8; O2SAT 91–100; BMI 18.7
--- NOTE | 2024-12-22 02:05 | PC.NURSE ---
Called physician at 0200, pt stated that he is pain, it is in the lower back. pt has tried repositioning and off loading pressure, with no help. Acetaminophen PRN was given at 2213, it did relieve some (scored a 1 post assessment from administered medication). I informed physician that the pt has been refusing PT and OT, and that his back hurts at home. Physician stated that he will add medication.
[2024-12-22] MEDS: KETOROLAC 30MG/ML VIAL 30 MG IV ×2 (02:26→09:05)
[2024-12-22 05:39] LABS: Hematocrit 34.6 % (42.0-52.0); Hemoglobin 11.2 g/dL (14.1-18.0); Immature Granulocytes % 0.3 %; Mean Corpuscular HGB Conc 32.4 g/dL (31.8-35.4); Mean Corpuscular Hemoglobin 30.1 pg (27.0-31.2); Mean Corpuscular Volume 93.0 fl (80-94); Nucleated Red Blood Cells % 0 %; Platelet Count 198 K/mm3 (142-424); Red Blood Count 3.72 M/mm3 (4.60-6.20); Red Cell Distribution Width-SD 47.8 fL; White Blood Count 7.0 K/mm3 (4.8-10.8)
[2024-12-22 05:49] LABS: Albumin Level 3.4 g/dl (3.5-5.0); Chloride 97 mmol/L (98-107); Sodium 137 mmol/L (136-145)
[2024-12-22 05:50] LABS: Potassium 3.9 mmoL/L (3.5-5.1)
[2024-12-22 05:52] LABS: Alanine Aminotransferase 22 U/L (12-78); Anion Gap 9.9 mEq/L (5-15); Aspartate Amino Transferase 24 U/L (17-59); Blood Urea Nitrogen 31 mg/dl (9-20); Carbon Dioxide 34 mmol/L (22.0-30.0); Creatinine Clearance Estimated 45 mL/min (50-200); Creatinine,Serum 1.10 mg/dl (0.66-1.25); Estimated Glomerular Filt Rate 65 ml/min (>60); GFR (African American) 78 ML/MIN (>60)
[2024-12-22 05:53] LABS: Albumin/Globulin Ratio 1.2 (1.1-1.8); Alkaline Phosphatase 76 U/L (38-126); Bilirubin,Total 0.3 mg/dl (0.2-1.3); Calcium 8.4 mg/dl (8.4-10.2); Globulin 2.8 g/dL (1.3-3.2); Glucose 99 mg/dl (74-100); Total Protein,Serum 6.2 g/dl (6.3-8.2)
[2024-12-22] MEDS: IPRATROPIUM/ALBUTEROL 3 ML NEB IH ×2 (05:58→11:10)
[2024-12-22] MEDS: BUDESONIDE/GLYCOPYR/FORMOTEROL 160/9/4.8MCG INHALER 2 PUFF IH (05:58)
[2024-12-22] MEDS: FLUTICASONE PROP 50MCG NASAL SPRAY 16GM 1 SPRAY NS (08:11)
[2024-12-22] MEDS: PRIMIDONE 50MG TABLET 50 MG PO (08:11)
[2024-12-22] MEDS: METOPROLOL SUCCINATE XL 50MG TABLET 50 MG PO (08:11)
[2024-12-22] MEDS: APIXABAN 5MG TABLET 5 MG PO (08:11)
--- NOTE | 2024-12-22 10:04 | P.DS_ITS ---
<Statement entered by Byron Shelton MD - 12/25/24 12:58> Agree with plan of care as outlined by the FURNITURE SALESPERSON. General Admission date:: 12/20/24 Discharge date: 12/22/24 HPI HPI HPI: 79-year-old male patient with history of COPD presents to ER with complaints of shortness of breath over the last week worsening on the day he presented. He has had a mild cough that is productive of yellow sputum. Denies fever chills or bodyaches. He was found to have an O2 sat of 85% on 2-1/2 L nasal cannula oxygen that he normally wears at home. He has had some lightheadedness and some falls. He denies injuries. But does complain of some pain posterior aspect of the left hip. Multiple skin tears have been noted. He does report occasionally having swelling in his lower extremities but did not feel like he had any recently and had not been taking his water pill. EMS administered 1 nebulizer treatment and IV Solu-Medrol. In the ER he received IV fluids although he did not receive the full sepsis bolus due to stable blood pressure and history of fluid retention. He received additional breathing treatments, Zosyn and Versed. He did require BiPAP and has tolerated it well. Blood gases did show hypercapnic respiratory failure. He was admitted here in July of this year with acute on chronic respiratory failure, right lower lobe pneumonia which cultures came back with Pseudomonas. He did follow-up with pulmonology outpatient but it appears he has not had any further follow-up after the first visit. X-ray and CT of the pelvis reportedly negative for acute injury however there is mention of a bladder lesion on the CT pelvis. CT chest shows severe bullous emphysema. Hospital Course Hospital Course Hospital Course: Mr. Garcia is a 79-year-old male who presented to the emergency department with acute respiratory failure with hypoxia and hypercarbia. He has a significant medical history of COPD stage IV, severe protein calorie malnutrition, hypertension, chronic respiratory failure with hypoxia, GERD, BPH, A-fib. He was initially admitted on BiPAP and weaned to 2 L nasal cannula (baseline). Pulmonology consulted. Plan of care was as follows: #Acute on chronic hypoxemic respiratory failure with acute hypercapnia #Gold stage IV severe COPD #COPD exacerbation #Bullous emphysema ? Initially on BiPAP, weaned to baseline 2 L nasal cannula. Patient continued to have increased wheezing and work of breathing, assessment today reveals no wheezing and baseline work of breathing. Patient is on 2 L nasal cannula. He ambulated with staff and maintained O2 saturation. - Discussed case with pulmonology, continue Breztri inhaler along with DuoNebs 4 times a day scheduled. Weaned to levofloxacin (renally dosed) for antibiotics to complete 5 days. Sputum culture pending. Continue prednisone 40 mg daily to complete 5 days of therapy. Continue incentive spirometry and flutter valve. - Has severely dilated bulla with his emphysematous changes and severe destruction of lungs noted on my review of CT of chest - Day of discharge WBC stable at 7.0, mild anemia with a hemoglobin of 11.2. No electrolyte abnormalities noted., Slightly elevated BUN at 31, creatinine 1.10. #A-fib #Hypertension -Continue home Eliquis 5 mg twice daily, Lasix 20 mg once daily, metoprolol succinate 50 mg daily. #BPH: Continue tamsulosin 0.4 mg twice daily. #Tremor: Continue primidone 50 mg daily. #Severe protein calorie malnutrition/pulmonary cachexia: Complicates all aspects of his care. High-protein supplementation. Discussed continuing high-protein diet after discharge. #GERD (continue pantoprazole 40 mg daily and famotidine 40 mg at bedtime. Total time spent on discharge 34 minutes in counseling, documentation, chart review, and direct care with patient. Exam Data for Last 24 hours Vital signs and Labs for Last 24 Hours: Temp Pulse Resp BP Pulse Ox O2 Del Method O2 Flow Rate 97.6 F 77 14 163/84 H 95 Nasal Cannula 2 12/22/24 08:00 12/22/24 08:00 12/22/24 08:00 12/22/24 08:00 12/22/24 08:00 12/22/24 08:00 12/22/24 08:00 FiO2 28 12/21/24 04:34 Laboratory Results - last 24 hr 12/22/24 05:21: WBC 7.0, RBC 3.72 L, Hgb 11.2 L, Hct 34.6 L, MCV 93.0, MCH 30.1, MCHC 32.4, RDW 14.0, Plt Count 198, MPV 9.7, Neut % (Auto) 77.9, Lymph % (Auto) 12.9, [place] % (Auto) 8.5, Eos % (Auto) 0.3, Baso % (Auto) 0.1, Neut # (Auto) 5.5, Lymph # (Auto) 0.9, [place] # (Auto) 0.6, Eos # (Auto) 0.0, Baso # (Auto) 0.0, Sodium 137, Potassium 3.9, Chloride 97 L, Carbon Dioxide 34 H, Anion Gap 9.9, BUN 31 H D, Creatinine 1.10, Estimated Creat Clear 45, Estimated GFR 65, Est GFR ( Amer) 78, Glucose 99, Calcium 8.4, Total Bilirubin 0.3, AST 24, ALT 22, Alkaline Phosphatase 76, Total Protein 6.2 L, Albumin 3.4 L, Globulin 2.8, Albumin/Globulin Ratio 1.2 I & O for Last 24 hours: Intake & Output 12/19/24 12/20/24 12/21/24 12/22/24 23:59 23:59 23:59 23:59 Intake Total 2465.75 / 2465.75 660 / 660 220 / 220 Output Total 320 / 320 2200 / 2200 100 / 100 Balance 2145.75 / 2145.75 -1540 / -1540 120 / 120 Weight 59.239 kg 58.604 kg 57.334 kg Microbiology Reports for the Last 24 Hours: Microbiology 12/20/24 00:18 Blood Blood Culture - Preliminary NO GROWTH AFTER 48 HOURS 12/20/24 00:10 Blood Blood Culture - Preliminary NO GROWTH AFTER 48 HOURS Constitutional Constitutional: mild distress, cachectic, chronically ill appearing and cooperative *Routine HEENT Exam Head: Present normocephalic Eye: Present EOMI and PERRL ENT: Present mucous membranes moist *Routine Neck Exam Neck: Present supple; Absent lymphadenopathy Routine Chest/Breast/Axilla Exam Comments: Barrel chested *Routine Respiratory Exam Respiratory: Present decreased breath sounds, prolonged expiratory phase, rhonchi, wheezes and diminished air movement; Absent CTA bilaterally or crackles *Routine Cardiovascular Exam Cardiovascular: Present RRR *Routine Abdominal Exam Abdominal: Present soft and normoactive bowel sounds; Absent tenderness *Routine Rectal Exam Patient deferred: visual exam *Routine Exam Patient deferred: penile exam *Routine Extremities Exam Extremities: Absent cyanosis, clubbing or edema *Routine Skin Exam Skin: Present warm; Absent rash *Routine Neurological Exam Neurological: Present alert, oriented X3, altered mental status and moving all extremities Results Data Completed and Pending Labs on day of discharge: Labs from last 24 hours 12/22/24 05:21 WBC 7.0 RBC 3.72 L Hgb 11.2 L Hct 34.6 L MCV 93.0 MCH 30.1 MCHC 32.4 RDW 14.0 Plt Count 198 MPV 9.7 Neut % (Auto) 77.9 Lymph % (Auto) 12.9 [place] % (Auto) 8.5 Eos % (Auto) 0.3 Baso % (Auto) 0.1 Neut # (Auto) 5.5 Lymph # (Auto) 0.9 [place] # (Auto) 0.6 Eos # (Auto) 0.0 Baso # (Auto) 0.0 Sodium 137 Potassium 3.9 Chloride 97 L Carbon Dioxide 34 H Anion Gap 9.9 BUN 31 H D Creatinine 1.10 Estimated Creat Clear 45 Estimated GFR 65 Est GFR ( Amer) 78 Glucose 99 Calcium 8.4 Total Bilirubin 0.3 AST 24 ALT 22 Alkaline Phosphatase 76 Total Protein 6.2 L Albumin 3.4 L Globulin 2.8 Albumin/Globulin Ratio 1.2 Preliminary micro results at discharge 12/20/24 00:18 Blood Culture - Preliminary Blood NO GROWTH AFTER 48 HOURS 12/20/24 00:10 Blood Culture - Preliminary Blood NO GROWTH AFTER 48 HOURS DS: Diagnosis Discharge Diagnosis (1) Acute and chronic respiratory failure with hypercapnia: Status: Acute Code(s): J96.22 - Acute and chronic respiratory failure with hypercapnia (2) Acute exacerbation of chronic obstructive airways disease: Status: Acute Code(s): J44.1 - Chronic obstructive pulmonary disease with (acute) exacerbation (3) Fall: Status: Acute Code(s): W19.XXXA - Unspecified fall, initial encounter Qualifiers: Encounter type: initial encounter Qualified Code(s): W19.XXXA - Unspecified fall, initial encounter (4) Hip pain: Status: Acute Code(s): M25.559 - Pain in unspecified hip Qualifiers: Laterality: left Qualified Code(s): M25.552 - Pain in left hip (5) Hypertension: Status: Chronic Code(s): I10 - Essential (primary) hypertension Qualifiers: Hypertension type: unspecified Qualified Code(s): I10 - Essential (primary) hypertension (6) Afib: Status: Acute Code(s): I48.91 - Unspecified atrial fibrillation Qualifiers: Atrial fibrillation type: unspecified chronic Qualified Code(s): I48.20 - Chronic atrial fibrillation, unspecified (7) Chronic anticoagulation: Status: Acute Code(s): Z79.01 - [facility] determiner (current) use of anticoagulants (8) Abnormal CT scan, pelvis: Status: Acute Code(s): R93.5 - Abnormal findings on diagnostic imaging of other abdominal regions, including retroperitoneum (9) Stage 4 very severe COPD by GOLD classification: Status: Acute Code(s): J44.9 - Chronic obstructive pulmonary disease, unspecified (10) Severe protein-calorie malnutrition: Status: Acute Code(s): E43 - Unspecified severe protein-calorie malnutrition Meds Home Medications and Allergies Home Medications ?Medication ?Instructions ?Recorded ?Confirmed ?Type apixaban 5 mg tablet 5 mg PO BID 07/24/22 5 History albuterol sulfate 90 mcg/actuation 2 puff inhalation Q 4HP PRN 07/29/23 12/20/24 Rx aerosol inhaler Shortness Of Breath 30 days #8.5 grams pantoprazole 40 mg tablet,delayed 40 mg PO DAILY 30 da ys #30 tabs 07/29/23 12/20/24 Rx release budesonide 160 mcg-glycopyr 9 2 puff inhalation BID 12/20/24 History mcg-formot 4.8 mcg/actuation HFA inhaler (Breztri Aerosphere) famotidine 40 mg tablet 40 mg PO HS 07/20/24 5 History furosemide 20 mg tablet 20 mg PO DAILYP PRN fluid re tention 07/20/24 12/20/24 History ipratropium 20 mcg-albuterol 100 1 puff inhalation QID 07/20/24 12/20/24 History mcg/actuation mist for inhalation (Combivent Respimat) metoprolol succinate 50 mg 50 mg PO DAILY 07/20/24 History tablet,extended release 24 hr primidone 50 mg tablet 50 mg PO DAILY 07/20/2412/02 History ipratropium 0.5 mg-albuterol 3 mg 3 ml inhalation Q6HP PRN Shortness 07/23/24 12/20/24 Rx (2.5 mg base)/3 mL nebulization Of Breath 30 days #180 mL soln irbesartan 75 mg tablet 75 mg PO HS 30 days #30 tabs 12/22/24 Rx levofloxacin 750 mg tablet 750 mg PO Q48H 1 day #1 tab 12/22/24 Rx prednisone 20 mg tablet 40 mg (2 x 20 mg) PO DAILY 2 days 12/22/24 Rx #4 tabs tamsulosin 0.4 mg capsule 0.8 mg (2 x 0.4 mg) PO HS 30 days 12/22/24 Rx #60 caps New Prescriptions to Start Prescriptions: irbesartan Jaquan,Amaris levofloxacin Jaquan,Amaris prednisone Jaquan,[facility]maris tamsulosin Jaquan,Amaris Allergies Allergy/AdvReac Type Severity Reaction Status Date / Time No Known Allergies Allergy Verified 08/05/24 12:54 Discharge Plan Disposition Patient Disposition: Home, Self-Care Condition: Fair Discharge Order Discharge Orders: Discharge Order (Routine); Ordered 12/22/24 Ordered By: Amaris Partida Follow up Plan Follow up with: Stephan Mabry MD [Physician, Pulmonology] - 01/18/25 1:00 pm Maribeth Mclean APRN [Nurse Practitioner, Medical] - Enter time for follow up Prescriptions/Medication Reconciliation: New prednisone 20 mg Tablet 40 mg PO DAILY 2 Days Qty: 4 0RF tamsulosin 0.4 mg Capsule 0.8 mg PO HS 30 Days Qty: 60 0RF irbesartan 75 mg Tablet 75 mg PO HS 30 Days Qty: 30 0RF levofloxacin 750 mg Tablet 750 mg PO Q48H 1 Days Qty: 1 0RF Continued apixaban 5 MG tablet 5 mg PO BID pantoprazole 40 mg Tablet,Delayed Release (Dr/Ec) 40 mg PO DAILY 30 Days Qty: 30 0RF albuterol sulfate 90 mcg/actuation HFA aerosol inhaler 2 puff inhalation Q4HP PRN (Reason: Shortness Of Breath) 30 Days Qty: 8.5 0RF metoprolol succinate 50 mg tablet extended release 24 hr 50 mg PO DAILY Patient Comments: TAKE ONE TABLET BY MOUTH ONCE A DAY FOR HYPERTENSION AND A. FIB Breztri Aerosphere 160-9-4.8 mcg/actuation HFA aerosol inhaler 2 puff INHALATION BID Patient Comments: INHALE 2 PUFFS BY MOUTH 2 TIMES A DAY primidone 50 mg tablet 50 mg PO DAILY Patient Comments: TAKE ONE TABLET BY MOUTH ONCE A DAY FOR TREMOR famotidine 40 mg tablet 40 mg PO HS Patient Comments: TAKE ONE TABLET BY MOUTH AT BEDTIME Combivent Respimat 20-100 mcg/actuation mist 1 puff INHALATION QID Patient Comments: INHALE 1 PUFF FOUR TIMES DAILY FOR COPD furosemide 20 mg tablet 20 mg PO DAILYP PRN (Reason: fluid retention) ipratropium-albuterol 0.5 mg-3 mg(2.5 mg base)/3 mL Solution For Nebulization 3 ml inhalation Q6HP PRN (Reason: Shortness Of Breath) 30 Days Qty: 180 0RF Problem Reconciliation Problems Reviewed?: Yes Patient Discharge Instructions ACTIVITY: Ambulate as tolerated and Up with assistance DIET: continue same diet Patient Instructions: High-Calorie, High-Protein Diet, NCM High-Calorie High- Protein Diet, WM High Calorie High Protein Diet Recipes Print Language: Colombian Providers Primary Care Provider: Provider,Referral Admit Provider: Kurt Us Attending Provider: Kurt Us
--- NOTE | 2024-12-23 09:59 | SW/DCPLANNER ---
Spoke with patient on the phone. Patient stated that he is doing good and that he has phlem in his throat. Patient stated that he is aware of his upcoming appointments. Patient stated that he was able to get his new medicine picked up from clinic pharmacy. Patient stated that he has no concerns or questions at this time. [place]
== END 2024-12-22 13:57 | disposition home or self-care (01) | DRG 189 ==
LOC: ER 12-20 02:07 → ICU 12-20 02:27
PROVIDERS: Nurse Practitioner Acute Care; Admitting Provider Internal Medicine Adolescent Medicine; Emergency Provider Emergency Medicine; Visit Provider Internal Medicine Adolescent Medicine
DX: J96.22 Acute and chronic respiratory failure with hypercapnia (principal); J18.9 Pneumonia, unspecified organism; E43 Unspecified severe protein-calorie malnutrition; J44.1 Chronic obstructive pulmonary disease with (acute) exacerbation; R64 Cachexia; I48.20 Chronic atrial fibrillation, unspecified; J44.0 Chronic obstructive pulmonary disease with (acute) lower respiratory infection; Z68.1 Body mass index [BMI] 19.9 or less, adult; J96.21 Acute and chronic respiratory failure with hypoxia; I10 Essential (primary) hypertension; J43.9 Emphysema, unspecified; N40.0 Benign prostatic hyperplasia without lower urinary tract symptoms; K21.9 Gastro-esophageal reflux disease without esophagitis; F17.210 Nicotine dependence, cigarettes, uncomplicated; M25.552 Pain in left hip; R25.1 Tremor, unspecified; R93.5 Abnormal findings on diagnostic imaging of other abdominal regions, including retroperitoneum; Z66 Do not resuscitate; Z86.19 Personal history of other infectious and parasitic diseases; Z79.01 Long term (current) use of anticoagulants; Z79.51 Long term (current) use of inhaled steroids; Z79.899 Other long term (current) drug therapy
CPT/HCPCS: 0223U; 36415; 70450; 71045; 71275; 72125; 72170; 72192; 80053; 81001; 82803; 83605; 83880; 84484; 85007; 85025; 87040; 87070; 87106; 87205; 89220; 93005; 94640; 94660; 94761; 97162; 97166; 97530; 99285; J1650; J1885; J1938; J2250; J2470; J2543; J7030; J7120; Q9967

== ENCOUNTER 2025-01-07 09:04 | Observation (INO) | payer OTHER, SELFPAY ==
--- OUTSIDE RECORDS SUMMARY | 2024-06-06 16:30 | XMS_ITS ---
Author Organization [facility] Address [address] [place] [address] Care Team Providers Care Business Information Analyst Name Role Phone Maribeth Mclean Primary Care Provider MARIBETH MCLEAN Unavailable Unavaila ble Migration, Provider Unavailable Unavailable REASON FOR VISIT [facility] Encounter Medications Medication SIG (Take, Route, Frequency, Duration) Notes Start Date End Date Status Rosuvastatin Calcium 20 MG 1/2 tab orally at bedtime Active Finasteride 5 MG 1 tab(s) orally once a day Active Breztri Aerosphere 160 MCG-4.8 MCG-9 MCG/INH 2 PUFF(S) INHALED 2 TIMES A DAY *Please review and pick correct strength-formulati [facility] options. If intended option is not [...] Active Encounters Encounter Location Date Provider Diagnosis [facility] [address] [place], [place] [address] 06/06/2024 Provider Migration Paroxysmal atrial fibrillation I48.0 [...] Notes * Carroll GARCIADOB:1945 (79 yo M)Acc No.[id number]:06/06/2024 Patient: Carroll KEMP Provider: Reed reddy Migration :1945 A ge:79 Y S ex:Male Date:06/06/2024 Address:[address], [facility], [id number] Pcp:Maribeth Mclean Subjective: * Chief Complaints: * [facility] . [facility]. * Medical History: * Medications: T aking Ohtuvayre 3 MG/2.5ML Suspension as directed by nebulizer 2 times a day , Taking Amoxicillin-Pot Clavulanate 875-125 MG Tablet 1 tab(s) orally every 12 hours , Taking Breztri Aerosphere 160 MCG-4.8 MCG-9 MCG/INH AEROSOL 2 PUFF(S) INHALED 2 TIMES A DAY , Notes to Pharmacist: *Please review and pick correct strength-formulation from [facility] options. If intended option is not [...] Electronic signature of Prov ider Migration on 01/07/2025 at 09:26 AM EST Sign off status: Pending * Provider: Reed reddy Migration Date: 0 06/06/2024 Generated for Ness thornton/Barrera/Pablo on: 1 03/09/2024 09:26 AM EST
--- OUTSIDE RECORDS SUMMARY | 2024-11-17 09:00 | XMS_ITS ---
Author Organization [facility] Address [address] [place] [address] Care Team Providers Care Spinner Frame Name Role Phone Jodi Mclean Primary Care Provider JODI MCLEAN Unavailable Unavaila ble Allergies No Known Allergies REASON FOR VISIT Home visit Medications Medication SIG (Take, Route, Frequency, Duration) Notes Start Date End Date Status Furosemide 20 MG 1 tab(s) orally once a day as needed for swelling; Duration: 30 days Active Eliquis 5 MG as directed orally 2 times a day Active Tamsulosin HCl 0.4 MG 1 cap(s) orally 2 times a day; Duration: 90 days Active Rosuvastatin Calcium 20 MG 1/2 tab orally at bedtime Active Magnesium Oxide 420 MG 2 tabs orally onc e a day Active Finasteride 5 MG 1 tab(s) orally once a day Active Primidone 50 mg TAKE ONE TABLET BY MOUTH ONCE A DAY FOR TREMOR; Duration: 30 Active predniSONE 10 mg TAKE 1 TO 2 TABLETS BY MOUTH ONCE DAILY FOR 30 DAYS; Duration: 30 Active Combivent Respimat 20-100 MCG/ACT INHALE 1 PUFF 4 TIMES A DAY FOR COPD; Duration: 30 Active Levocetirizine Dihydrochloride 5 mg TAKE 1 TABLET BY MOUTH EVERY EVENING; Duration: 30 Active Albuterol Sulfate HFA 108 (90 Base) MCG/ACT INHALE 2 PUFFS BY MOUTH EVERY 6 HOURS NEEDED FOR SHORTNESS OF BREATH; Duration: 25 Active Breztri Aerosphere 160 MCG-4.8 MCG-9 MCG/INH 2 PUFF(S) INHALED 2 TIMES A DAY; Duration: 28 days *Please review and pick correct strength-formulat ion from [employer] options. If intended option is not shown, discontinue and re-order from Quick Search* Active Metoprolol Succinate ER 50 mg TAKE ONE TABLET BY MOUTH ONCE A DAY FOR HYPERTENSION AND A. 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 ; Paroxysmal atrial fibrillation I48.0 ; Dependence on supplemental oxygen Z99.81 ; Chronic hypoxic respiratory failure J96.11 ; Essential hypertension I10 ; Iron deficiency anemia, unspecified iron deficiency anemia type D50.9 and Benign prostatic hyperplasia with lower urinary tract symptoms, symptom details unspecified N40.1 Assessments Encounter Date Diagnosis (ICD Code) Assessment Notes Treatment Notes Treatment Clinical Notes Section Notes 11/17/2024 Peripheral edema (ICD-10 - R60.0) continue diuretics 11/17/2024 COPD, severe (ICD-10 - J44.9) Breztri, prednisone, has pulmonology FU arranged. 11/17/2024 Paroxysmal atrial fibrillation (ICD-10 - I48.0) Regular today on exam. Continue eliquis and metoprolol 11/17/2024 Dependence on supplemental oxygen (ICD-10 - Z99.81) Continue supplemental O2 through [facility] 11/17/2024 Chronic hypoxic respiratory failure (ICD-10 - J96.11) 11/17/2024 Essential hypertension (ICD-10 - I10) improved control 11/17/2024 Iron deficiency anemia, unspecified iron deficiency anemia type (ICD-10 - D50.9) discussed obtaining labs next time he is out for FU with pickling operator 11/17/2024 Benign prostatic hyperplasia with lower urinary tract symptoms, symptom details unspecified (ICD-10 - N40.1) stable symptoms 11/17/2024 Other Patient contin ues to be homebound due to need for assistive device for mobility, high fall risk, dyspnea on exertion. Plan Of Treatment Treatment Notes Assessment Notes Paroxysmal atrial fibrillation Regular t estrellita on exam. Continue eliquis and metoprolol Next Appt Details Follow Up: 4 Months,prn, [place] son: Progress Notes * Carroll GARCIADOB:1945 (79 yo M)Acc No.[id number]:11/17/2024 Home Visit Patient: Carroll KEMP Provider: DEBORAH Cuevas :1945 A ge:79 Y S ex:Male Date:11/17/2024 Address:[address], [place] [facility], [id number] Subjective: * Chief Complaints: * 1 . Home visit. * HPI: g en: 79-year-old male seen today in his home for routine 4 month chronic disease FU. Denies acute concerns. He has in-home help twice a week (shopping, cleaning, etc.) Not smoking. Drinking alcohol only once on the weekends most weeks. Last acute care admission was at [facility] about 4 months ago for COPD exacerbation and pneumonia. Still using his oxygen continuously 2.5L, nebulizer as needed. Following with pulm at [facility]. Appetite is improving/stable following recent dental extractions. Now completely edentulous and doesn't plan on getting dentures. no significant edema, more at the end of the day. Has had good urine output and bowel movements. * ROS: F UNCTIONAL STATUS: ADLS l imited due to SOA. R ESPIRATORY: See HPI Y es. C ARDIOLOGY: no D izziness. n o C hest pain. n o P alpitations. L eg edema y es. C ONSTITUTIONAL: no L oss of appetite. n o F ever. W eakness?yes, a t baseline. F atigue y es. D ERMATOLOGY: no R sy. G ASTROENTEROLOGY: no N ausea. n o V omiting. n o A bdominal pain. n o D ysphagia. n o D iarrhea. n o C onstipation. H EMATOLOGY/LYMPH: no S wollen glands. n o E asy bruising. ? M USCULOSKELETAL: Reviewed, No Symptoms Reported: Y es. N EUROLOGY: no H eadache. n o M nhan loss. n o D izziness. P SYCHOLOGY: no D epression. H igh stress level yes. n o?Anxiety. U ROLOGY: Positive for h /o retention previously requiring catheter.?no D ifficulty urinating. n o B lood in urine. 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 * Medications: T aking Finasteride 5 MG Tablet 1 tab(s) orally once a day , Taking Rosuvastatin Calcium 20 MG Tablet 1/2 tab orally at bedtime , Taking Magnesium Oxide 420 MG Tablet 2 tabs orally once a day , Taking Eliquis 5 MG Tablet as directed orally 2 times a day , Taking Tamsulosin HCl 0.4 MG Capsule 1 cap(s) orally 2 times a day , Taking Furosemide 20 MG Tablet 1 tab(s) orally once a day as needed for swelling , Taking Ondansetron HCl 4 mg Tablet TAKE ONE TABLET BY MOUTH EVERY 8 HOURS NEEDED FOR NAUSEA , Taking Albuterol Sulfate HFA 108 (90 Base) MCG/ACT Aerosol Solution INHALE 2 PUFFS BY MOUTH EVERY 6 HOURS NEEDED FOR SHORTNESS OF BREATH , Taking Breztri Aerosphere 160 MCG-4.8 MCG-9 MCG/INH AEROSOL 2 PUFF(S) INHALED 2 TIMES A DAY , Notes to Pharmacist: *Please review and pick correct strength-formulation from [employer] options. If intended option is not shown, discontinue and re-order from Quick Search*, Taking Metoprolol Succinate ER 50 mg Tablet Extended Release 24 Hour TAKE ONE TABLET BY MOUTH ONCE A DAY FOR HYPERTENSION AND A. FIB , Taking Famotidine 40 mg Tablet TAKE ONE TABLET BY MOUTH AT BEDTIME , Taking Pantoprazole Sodium 40 mg Tablet Delayed Release TAKE ONE TABLET BY MOUTH ONCE A DAY , Taking Combivent Respimat 20-100 MCG/ACT Aerosol Solution INHALE 1 PUFF 4 TIMES A DAY FOR COPD , Taking Levocetirizine Dihydrochloride 5 mg Tablet TAKE 1 TABLET BY MOUTH EVERY EVENING , Taking Primidone 50 mg Tablet TAKE ONE TABLET BY MOUTH ONCE A DAY FOR TREMOR , Taking predniSONE 10 mg Tablet TAKE 1 TO 2 TABLETS BY MOUTH ONCE DAILY FOR 30 DAYS * Allergies: N .K.D.A. Objective: * Vitals: * Examination: G eneral Examination: General P leasant and Cooperative, NAD on O2 by NC, mild conversational dyspnea. Oral cavity: M oist membranes, Edentulous. Chest: B arrel Shaped, Increased AP diameter. Heart: R egular Rate and Rhythm, no rubs or gallops. Lungs: c lear but diffusely diminished. Abdomen: s oft, NT/ND, BS present. Neurologic Exam: A lert and oriented x 3 . Skin: w ithout acute rashes. Extremities: t race pedal edema to the ankles. neck s upple,, no thyromegaly,, no lymphadenopathy,. Psych N ormal Mood/Affect. H R 88 Pulse ox 96% on 2.5L BP 128/78. Assessment: * Assessment: 1. C OPD, severe - J44.9 (Primary) 2 . P eripheral edema - R60.0 3 . P aroxysmal atrial fibrillation - I48.0 4 . D ependence on supplemental oxygen - Z99.81 5 . C hronic hypoxic respiratory failure - J96.11 & #160; 6 . E ssential hypertension - I10 7 . I shankar deficiency anemia, unspecified iron deficiency anemia type - D50.9 8 . B enign prostatic hyperplasia with lower urinary tract symptoms, symptom details unspecified - N40.1 Plan: * Treatment: 2. P eripheral edema Clinical Notes: continue diuretics 3. P aroxysmal atrial fibrillation Notes: Regular today on exam. Continue eliquis and metoprolol 4. D ependence on supplemental oxygen Clinical Notes: Continue supplemental O2 through [facility] 5. E ssential hypertension Clinical Notes: improved control 6. I shankar deficiency anemia, unspecified iron deficiency anemia type Clinical Notes: discussed obtaining labs next time he is out for FU with pickling operator 7. B enign prostatic hyperplasia with lower urinary tract symptoms, symptom details unspecified Clinical Notes: stable symptoms 8. O thers Clinical Notes: Patient continues to be homebound due to need for assistive device for mobility, high fall risk, dyspnea on exertion. * Procedure Codes: 9 9348 HOME VISIT - ESTAB PT - 2 * Follow Up: 4 Months,prn * * Sign off status: Completed true * Provider: DEBORAH Cuevas Date: 0 11/17/2024 Generated for Ness thornton/Barrera/Pablo on: 1 03/09/2024 09:27 AM EST History and Physical Notes * HPI (History of Present Illness) Category Sub-Category Detail Notes Category Not es gen 79-year-old male seen today in his home for routine 4 month chronic disease FU. Denies acute concerns. He has in-home help twice a week (shopping, cleaning, etc.) Not smoking. Drinking alcohol only once on the weekends most weeks. Last acute care admission was at [facility] about 4 months ago for COPD exacerbation and pneumonia. Still using his oxygen continuously 2.5L, nebulizer as needed. Following with pulm at [facility]. Appetite is improving/stable following recent dental extractions. Now completely edentulous and doesn't plan on getting dentures. no significant edema, more at the end of the day. Has had good urine output and bowel movements. Examination Category Sub-Category Detail Notes Category Not es General Examination Heart: Regular Rate and Rhythm, no rubs or gallops HR 88 Pulse ox 96% on 2.5L BP 128/78 Lungs: clear but diffusely diminished Abdomen: soft, NT/ND, BS pres ent Extremities: trace pedal edema to the ankles Skin: without acute rashes Neurologic Exam: Alert and oriented x 3 Oral cavity: Moist membranes, Jv ntulous Chest: Barrel Shaped, Incre ased AP diameter neck supple,, no thyromeg aurora,, no lymphadenopathy, General Pleasant and Coopera tive, NAD on O2 by NC, mild conversational dyspnea Psych Normal Mood/Affect
--- OUTSIDE RECORDS SUMMARY | 2024-12-29 09:00 | XMS_ITS ---
Author Organization [facility] Address [address] [place] [address] Care Team Providers Care Firmware Engineer Name Role Phone Jodi Mclean Primary Care Provider JODI MCLEAN Unavailable Unavaila ble Allergies No Known Allergies REASON FOR VISIT hospital f/u Medications Medication SIG (Take, Route, Frequency, Duration) Notes Start Date End Date Status Primidone 50 mg TAKE ONE TABLET BY MOUTH ONCE A DAY FOR TREMOR; Duration: 30 Active Levocetirizine Dihydrochloride 5 mg TAKE 1 TABLET BY MOUTH EVERY EVENING; Duration: 30 Active Combivent Respimat 20-100 MCG/ACT INHALE 1 PUFF 4 TIMES A DAY FOR COPD; Duration: 30 Active Albuterol Sulfate HFA 108 (90 Base) MCG/ACT INHALE 2 PUFFS BY MOUTH EVERY 6 HOURS NEEDED FOR SHORTNESS OF BREATH; Duration: 16 Active predniSONE 10 mg TAKE 1 TO 2 TABLETS BY MOUTH ONCE DAILY FOR 30 DAYS; Duration: 30 Active Pantoprazole Sodium 40 mg TAKE ONE TABLET BY MOUTH ONCE A DAY; Duration: 30 Active Famotidine 40 mg TAKE ONE TABLET BY MOUTH AT BEDTIME; Duration: 30 Active Metoprolol Succinate ER 50 mg TAKE ONE TABLET BY MOUTH ONCE A DAY FOR HYPERTENSION AND A. FIB; Duration: 30 Active Breztri Aerosphere 160 MCG-4.8 MCG-9 MCG/INH 2 PUFF(S) INHALED 2 TIMES A DAY; Duration: 28 days *Please review and pick correct strength-formulat ion from [employer] options. If intended option is not shown, discontinue and re-order from [employer]* Active Ondansetron HCl 4 mg TAKE ONE TABLET BY MOUTH EVERY 8 HOURS NEEDED FOR NAUSEA; Duration: 10 Active Eliquis 5 MG as directed orally 2 times a day Active Magnesium Oxide 420 MG 2 tabs orally onc e a day Active Rosuvastatin Calcium 20 MG 1/2 tab orally at bedtime Active Furosemide 20 MG 1 tab(s) orally once a day as needed for swelling; Duration: 30 days Active Tamsulosin HCl 0.4 MG 1 cap(s) orally 2 times a day; Duration: 90 days Active Finasteride 5 MG 1 tab(s) orally once a day Active Social History Tobacco Use: Social History Observation Description Date Details (start date - stop date) Current Smoker NA - NA Smoking: Question Answer Notes Are you a: current smoker How many cigarettes a day do you smoke? 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 12/29/2024 Community acquired pneumonia of right lower lobe of lung (ICD-10 - J18.9) Hospital documentation reviewed. He has completed therapy. Afebrile and essentially back to his baseline. He has follow-up arranged with pulmonology and denies additional questions/concern s. Encouraged complete smoking cessation 12/29/2024 Peripheral edema (ICD-10 - R60.0) continue diuretics 12/29/2024 Paroxysmal atrial fibrillation (ICD-10 - I48.0) Regular today on exam. Continue eliquis and metoprolol 12/29/2024 Dependence on supplemental oxygen (ICD-10 - Z99.81) Continue supplemental O2 through [employer] 12/29/2024 Chronic hypoxic respiratory failure (ICD-10 - J96.11) 12/29/2024 Essential hypertension (ICD-10 - I10) improved control, hold irbesartan 12/29/2024 Senile debility (ICD-10 - R54) 12/29/2024 Hospital discharge follow-up (ICD-10 - Z09) 12/29/2024 Tobacco use (ICD-10 - Z72.0) Plan Of Treatment Treatment Notes Assessment Notes Paroxysmal atrial fibrillation Regular t estrellita on exam. Continue eliquis and metoprolol Next Appt Details Follow Up: 3 Months,alvin, Yoly son: Progress Notes * Carroll GARCIADOB:1945 (79 yo M)Acc No.[id number]:12/29/2024 Home Visit 3 Patient: Carroll KEMP Provider: DEBORAH Cuevas :1945 A ge:79 Y S ex:Male Date:12/29/2024 Address:[address] [id number] Subjective: * Chief Complaints: * 1 . Hospital f/u. * HPI: I ntrim History: 79-year-old male seen today in his home for hospital follow-up. He was admitted to [facility] with acute onset respiratory failure, overlying chronic respiratory failure and end-stage COPD. He was noted to have a COPD exacerbation with community-acquired pneumonia of the right lung. Sputum cultures ultimately grew pseudomonas bacteria. He reports sudden onset of symptoms, woke with severe dyspnea, did not have his rescue inhaler next to the bed, and called 911. Discharged to complete oral levaquin and remains on chronic steroids. Required BiPAP briefly at time of admission. He has outpatient pulmonology FU arranged. Smoking 2-3 cig per day, out of boredom. Still using his oxygen continuously, nebulizer as needed. Combivent QID and Breztri routinely. Denies new concerns. Transition of care visit from hospital D ate of admission to hospital: 1 , D ate of receipt of hospital admission report: ,?Date of discharge from hospital: 1 , D ate of receipt of hospital discharge summary: , D ischarge medications reviewed and reconciled from hospital: M edications changed (e.g. discontinued, changed or added) irbesartan added for HTN but has stopped due to dizziness and low BP at home. * ROS: F UNCTIONAL STATUS: ADLS l [...] no D epression. H igh stress level y es. n o?Anxiety. U ROLOGY: Positive for h /o retention previously requiring catheter.?no D ifficulty urinating. n o B lood in urine. 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 * Hospitalization/Major Diagno stic Procedure: H MH JULY 2023, [facility] - COPD exacerbation July 2024, [facility] - COPD exacerbation Dec 2024. * Family History: F ather: , diagnosed with Heart Disease. M other: . P aternal Grand Father: . P aternal Grand Mother: . M aternal Grand Father: . M aternal Grand Mother: . P aternal uncle: . P aternal aunt: . M aternal uncle: . M aternal aunt: . S iblings: alive. 1 brother(s) . . N on-Contributory. Family- Hx of heart attack, stroke, hypertension, hypercholestrolemia. * Social History: S moking A re you a: c urrent smoker, H ow many cigarettes a day do you smoke??5 or less. R ecreational drug use: no. Exercise: no. Home smoke detector use: yes. Caffeine: yes, frequency: coffee, soda on occasion. Living Will: Yes, on file [facility]. Alcohol: socially, rarely occasional weekend. Occupation: retired. * Medications: T aking Finasteride 5 MG [...] 8 HOURS NEEDED FOR NAUSEA , Taking Breztri Aerosphere 160 MCG-4.8 MCG-9 MCG/INH AEROSOL 2 PUFF(S) INHALED 2 TIMES A DAY , Notes to Pharmacist: *Please review and pick correct strength-formulation from [employer] options. If intended option is not shown, [...] BY MOUTH ONCE DAILY FOR 30 DAYS , Taking Albuterol Sulfate HFA 108 (90 Base) MCG/ACT Aerosol Solution INHALE 2 PUFFS BY MOUTH EVERY 6 HOURS NEEDED FOR SHORTNESS OF BREATH , Medication List reviewed and reconciled with the patient * Allergies: N .K.D.A. Objective: * Vitals: [...] Extremities: t race pedal edema to the ankles right > left. neck s upple,, no thyromegaly,, no lymphadenopathy,. Psych N ormal Mood/Affect. H R 76 Pulse ox 96% on 2.5L BP 130/72. Assessment: * Assessment: 1. C ommunity acquired pneumonia of right lower lobe of lung - J18.9 (Primary) 2 . C OPD, severe - J44.9 3 . P eripheral edema - R60.0 4 .?Paroxysmal atrial fibrillation - I48.0 5 . D ependence on supplemental oxygen - Z99.81 6 . C hronic hypoxic respiratory failure - J96.11 7 . E ssential hypertension - I10 8 . S enile debility - R54 9 . H ospital discharge follow-up - Z09 1 0. T obacco use - Z72.0 ? Plan: * Treatment: 2. C OPD, severe Clinical Notes: Breztri, prednisone, has pulmonology FU arranged. 3. P eripheral edema Clinical Notes: continue diuretics 4. P aroxysmal atrial fibrillation Notes: Regular today on exam. Continue eliquis and metoprolol 5. D ependence on supplemental oxygen Clinical Notes: Continue supplemental O2 through [employer] 6. E ssential hypertension Clinical Notes: improved control, hold irbesartan * Procedure Codes: 9 9496 TRANS CARE MGMT 7 DAY DISCH, 1111F DSC MED/CURENT MED MERGE * Follow Up: 3 Months,prn * * Sign off status: Completed true * Provider: DEBORAH Cuevas Date: Generated for Ness thornton/Barrera/Pablo on: 03/09/2024 09:27 AM EST History and Physical Notes * HPI (History of Present Illness) Category Sub-Category Detail Notes Category Not es Intrim History Transition of care v isit from hospital Date of admission to hospital:: 12/20/2024 Date of receipt of hospital admission report:: 12/23/2024 Date of discharge from hospi sandra:: 12/22/2024 Date of receipt of hospital discharge summary:: 12/23/2024 Discharge medications review ed and reconciled from hospital:: Medications changed (e.g. discontinued, changed or added) irbesartan added for HTN but has stopped due to dizziness and low BP at home Examination Category Sub-Category Detail Notes Category Not es General Examination Heart: Regular Rate and Rhythm, no rubs or gallops HR 76 Pulse ox 96% on 2.5L BP 130/72 Lungs: clear but diffusely diminished Abdomen: soft, NT/ND, BS pres ent Extremities: trace pedal edema to the ankles right > left Skin: without acute rashes Neurologic Exam: Alert and oriented x 3 Oral cavity: Moist membranes, Jv ntulous Chest: Barrel Shaped, Incre ased AP diameter neck supple,, no thyromeg aurora,, no lymphadenopathy, General Pleasant and Cooper[place] tive, NAD on O2 by NC, mild conversational dyspnea Psych Normal Mood/Affect
[2025-01-07] VITALS (31 sets, daily range): BP systolic 116–149; BP diastolic 53–78; PULSE 71–94; RESP 11–24; TEMP 36.3–37.2; O2SAT 90–100; BMI 19.2
--- NOTE | 2025-01-07 09:08 | ECG_ITS ---
APPROVED REPORT Exam: Resting ECG HR:97 bpm ECG Measurements Heart Rate 97 AXES CA 92 P 76 QRSd 98 QRS 91 QT 389 T 70 QTc 444 Conclusion SINUS RHYTHM WITH SHORT CA INTERVAL BORDERLINE RIGHT AXIS DEVIATION [QRS AXIS > 90] ST DEPRESSION, CONSIDER SUBENDOCARDIAL INJURY [0.1+ mV ST DEPRESSION] ABNORMAL ECG Electronically signed by : RAMON LYNN, 01/11/2025 07:29:41
--- NOTE | 2025-01-07 09:09 | XR_ITS ---
FINAL REPORT CLINICAL HISTORY: shortness of breath COMPARISON: 12/20/2024 FINDINGS: A portable view of the chest was obtained. Cardiac and mediastinal silhouettes are within normal limits. Severe emphysema is noted. Since the previous exam, there has been interval development of right basilar opacity and right upper lobe opacity which could represent pneumonia. Irregular opacity in the left upper lobe is similar to the prior study. There is no pleural effusion or pneumothorax. IMPRESSION: New right basilar and right upper lobe opacity could represent pneumonia. Reviewed, Interpreted and Dictated by Lucina Prescott MD Transcribed by Luciana Mcdonough Authenticated and . [facility]
[2025-01-07 09:11] LABS: VBG HCO3 30.1 mmol/L (23-30); VBG PCO2 72.3 mmol/L (35-51); VBG PH 7.24 mmol/L (7.31-7.41); VBG PO2 35.8 mmol/L (28-40)
[2025-01-07 09:12] LABS: Lactate Venous 2.4 mmol/L (0.4-2.0)
[2025-01-07 09:17] LABS: Hematocrit 40.1 % (42.0-52.0); Hemoglobin 12.5 g/dL (14.1-18.0); Immature Granulocytes % 0.9 %; Mean Corpuscular HGB Conc 31.2 g/dL (31.8-35.4); Mean Corpuscular Hemoglobin 30.5 pg (27.0-31.2); Mean Corpuscular Volume 97.8 fl (80-94); Nucleated Red Blood Cells % 0 %; Platelet Count 240 K/mm3 (142-424); Red Blood Count 4.10 M/mm3 (4.60-6.20); Red Cell Distribution Width-SD 50.0 fL; White Blood Count 19.7 K/mm3 (4.8-10.8)
[2025-01-07] MEDS: IPRATROPIUM/ALBUTEROL 3 ML NEB 9 ML IH (09:22)
[2025-01-07 09:25] LABS: Activated Partial Thrombo Time 24.9 seconds (22.8-30.6); INR 0.98 (0.9-1.1); Prothrombin Time 10.9 seconds (10.1-12.5)
[2025-01-07 09:26] LABS: Alanine Aminotransferase 22 U/L (12-78); Albumin Level 4.3 g/dl (3.5-5.0); Albumin/Globulin Ratio 1.2 (1.1-1.8); Alkaline Phosphatase 83 U/L (38-126); Anion Gap 11.0 mEq/L (5-15); Aspartate Amino Transferase 30 U/L (17-59); Bilirubin,Total 1.1 mg/dl (0.2-1.3); Blood Urea Nitrogen 35 mg/dl (9-20); Calcium 9.1 mg/dl (8.4-10.2); Carbon Dioxide 32 mmol/L (22.0-30.0); Chloride 98 mmol/L (98-107); Creatinine Clearance Estimated 51 mL/min (50-200); Creatinine,Serum 0.90 mg/dl (0.66-1.25); Estimated Glomerular Filt Rate 82 ml/min (>60); GFR (African American) 99 ML/MIN (>60); Globulin 3.5 g/dL (1.3-3.2); Glucose 104 mg/dl (74-100); Lipase 11 U/L (23-300); Magnesium 2.2 mg/dl (1.6-2.3); Potassium 5.0 mmoL/L (3.5-5.1); Sodium 136 mmol/L (136-145); Total Protein,Serum 7.8 g/dl (6.3-8.2)
--- NOTE | 2025-01-07 09:27 | CT_ITS ---
FINAL REPORT TECHNIQUE: Axial imaging of the chest is obtained after the administration of contrast. 3-D MIP reformatted images were also obtained and reviewed per PE protocol. CLINICAL HISTORY: hypoxia COMPARISON: 12/20/2024 FINDINGS: The pulmonary arteries are well filled. There is no evidence of pulmonary embolus. There is no aortic dissection. Heart size is normal. There is no axillary lymphadenopathy. There is a mildly enlarged right hilar lymph node that is unchanged. Severe emphysema is identified. There is new ground glass and airspace disease in the right middle lobe most consistent with pneumonia. There is a nodule along the left major fissure on series 5, image 69, unchanged. This is likely an intrafissural lymph node. There are also new ground glass opacities and bronchial wall thickening in the anterior right lower lobe, also likely infectious/inflammatory. There is no pleural or pericardial effusion. Limited evaluation of the upper abdomen reveals gallstones.. There is a mid thoracic compression fracture. IMPRESSION: No evidence of pulmonary embolism or aortic dissection. New right middle lobe and left lower lobe pneumonia. Consider 3-month follow-up. Gastric wall thickening, gastritis or neoplasm is not excluded. Consider endoscopy. Reviewed, Interpreted and Dictated by Lucina Prescott MD Transcribed by Fifi Andrade Authenticated and [facility]
--- OUTSIDE RECORDS SUMMARY | 2025-01-07 09:27 | XMS_ITS | Encounter Summary ---
Author Organization [facility] [address] Care Team Providers Care Sap Gatherer Name Role Phone Unavailable Primary Care Provider Unavailabl e Reason for Visit * Reason Comments Medication Refill Encounter Details Date Type Department Care Team (Late st Contact Info) Description 11/12/2024 Refill SEP Pulmonology [facility] [address] [facility] Building [address] [place] [phone] Matheus Childress MD [address] [phone] Medication Refill Social History Tobacco Use Types [...] Notes * Telephone Encounter - Yris Wharton, director data management - 11/12/2024 1:20 PM EDT Luhztri 160-9-4.8 Future Visit: 11/20/24 Last Assessed Visit: 05/18/24 Follow-Up Date: 11/18/24 All protocols passed. Refills approved and sent to requesting pharmacy. Routed to [facility] if an appointment is needed. documented in this encounter Plan of Treatment Not on file documented as of this encounter Visit Diagnoses Not on filedocumented in this encounter Discontinued Medications Medication Sig Discontinue Reason Start Date End Da te uylxtyadju-wnaecnnt-fcty oterol (BREZTRI AEROSPHERE) 160-9-4.8 mcg/actuation Inhl HFA Aerosol Inhaler INHALE 2 PUFFS BY MOUTH 2 TIMES A DAY 09/18/2024 11/12/2024 documented as of this encounter
--- OUTSIDE RECORDS SUMMARY | 2025-01-07 09:28 | XMS_ITS | Clinical Summary ---
Author Organization [facility] Address [address] [facility] [address] [place] [address] Phone Care Team Providers Care Rn Intern Name Role Phone Unavailable Primary Care Provider [...] Care Team Description 11/12/2024 Refill SEP Pulmonology [facility] [address] [facility] [place] [facility] Building [address] [place] [phone] Matheus Childress MD Medication Refill from [...] contact the office of the ordering clinician. [email or web address] Narrative 06/24/2023 4:[address] [facility]MY LUNG CANCER SCREENING FOLLOW UP 06/24/2023 2:14 PM CLINICAL HISTORY: Asymptomatic patient meeting NCCN high risk criteria for lung screening. R91.1-Solitary pulmonary vtzxhq-BRD-56-CM. COMPARISON: 06/06/2023, 03/24/2023 PROCEDURE COMMENTS: Noncontrast, low-dose, multidetector CT chest per department protocol. Interactive 3-D postprocessing done by the reviewing physician on a [employer] workstation, using Maximum intensity projections (MIPS) and ReferrizerO LUNG CAD for improved lesion detection. Dickens [...] high risk criteria forlung screening. R91.1-Solitary pulmonary rambhj-WUK-81-CM. COMPARISON: 06/06/2023, 03/24/2023 PROCEDURE COMMENTS: Noncontrast, low-dose, multidetector CT chest perdepartment protocol. Interactive 3-D postprocessing done by the reviewing physicianon a [employer] workstation, using Maximum intensity projections (MIPS) and SYN[employer]ed 5 StudiosUNG CAD for improved lesion detection. Dickens images [...] 1.3 cm fissural nodule on the left (). Lingular nodules have resolved. Improving bronchocentric nodules [...] relatively well-circumscribed bilateral nodules that persist. Continued ivs-rrapyboorbn-xp recommended. RECOMMENDATION: Low Dose CT - 6 Mo A summary letter communicating these results will be mailed to thepatient's address of record. CODE Lung Follow Up. Note: Radiology results need to be interpreted within a comprehensiveclinical context. If you have questions about the radiology report, please contactthe office of the ordering clinician. [email or web address] Matheus Childress MD IM CT ORDERABLES Final Res ult from Last 3 Months or Most Recently Relevant to Health Maintenance Insurance [employer] [place] [address] [employer] [place]
--- OUTSIDE RECORDS SUMMARY | 2025-01-07 09:28 | XMS_ITS | Patient Health Record ---
Author Organization [facility] Address [address] [place] [address] Care Team Providers Care Photograph Inspector Name Role Phone Maribeth Mclean Primary Care Provider MARIBETH MCLEAN Unavailable Unavaila ble Migration, Provider Unavailable Unavailable Allergies No Known Allergies Reason For Referral No Information Medications Medication SIG (Take, Route, Frequency, Duration) Notes Start Date End Date Status Combivent Respimat 20-100 MCG/ACT INHALE 1 PUFF 4 TIMES A DAY FOR COPD; Duration: 30 Active Pantoprazole Sodium 40 mg [...] review and pick correct strength-formulat ion from Anturis options. If intended option is not shown, discontinue and re-order from Quick Search* Active Ondansetron HCl 4 mg TAKE ONE TABLET BY MOUTH EVERY 8 HOURS NEEDED FOR NAUSEA; Duration: 10 Active Furosemide 20 MG 1 tab(s) orally once a day as needed for swelling; Duration: 30 days Active Tamsulosin HCl 0.4 MG 1 cap(s) orally 2 times a day; Duration: 90 days Active Albuterol Sulfate HFA 108 (90 Base) MCG/ACT INHALE 2 PUFFS BY MOUTH EVERY 6 HOURS NEEDED FOR SHORTNESS OF BREATH; Duration: 16 Active predniSONE 10 mg TAKE 1 TO 2 TABLETS BY MOUTH ONCE DAILY FOR 30 DAYS; Duration: 30 Active Eliquis 5 MG as directed orally 2 times a day Active Magnesium Oxide 420 MG 2 tabs orally onc e a day Active Primidone 50 mg TAKE ONE TABLET BY MOUTH ONCE A DAY FOR TREMOR; Duration: 30 Active Rosuvastatin Calcium 20 MG 1/2 tab orally at bedtime Active Levocetirizine Dihydrochloride 5 mg TAKE 1 TABLET BY MOUTH EVERY EVENING; Duration: 30 Active Finasteride 5 MG 1 tab(s) orally once a day Active Immunizations Vaccine Route Administration Date Status [...] Status Risk Notes Problem Paroxysmal atrial fibrillation (923958801) Paroxysmal atrial fibrillation (I48.0) Active confirmed Problem Tobacco use (860344221) Tobacco use (Z72.0) Active confirmed Problem Dependence on supplemental oxygen (439276362409) Dependence on supplemental oxygen (Z99.81) Active confirmed Problem Essential hypertension (73780990) Essential hypertension (I10) Active confirmed Problem Acute exacerbation of chronic obstructive airways disease (350402575) COPD exacerbation (J44.1) Active confirmed Problem Senile debility (47408789) Senile debility (R54) Active confirmed Problem Chronic fatigue syndrome (90164370) Chronic fatigue (R53.82) Active confirmed Problem Iron deficiency anemia (47675092) Iron deficiency anemia, unspecified iron deficiency anemia type (D50.9) Active confirmed Problem Lower urinary tract symptoms due to benign prostatic hypertrophy (16841102462223) Benign prostatic hyperplasia with lower urinary tract symptoms, symptom details unspecified (N40.1) Active confirmed Problem Chronic respiratory failure (32504256) Chronic hypoxic respiratory failure (J96.11) Active confirmed Problem Chronic obstructive pulmonary disease (75504512) COPD, 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) Active confirmed Encounters Encounter Location Date Provider Diagnosis [facility] [address] [place], [place] [address] 06/06/2024 Provider Migration Paroxysmal atrial fibrillation I48.0 ; Tremor R25.1 ; COPD exacerbation J44.1 ; Dyspepsia R10.13 and Peripheral edema R60.0 [facility] [address] [facility] [address] [place] [address] 03/17/2024 Maribeth Mclean Peripheral edema R60.0 ; COPD exacerbation J44.1 ; Paroxysmal atrial fibrillation I48.0 ; COPD, severe J44.9 ; Dependence on supplemental oxygen Z99.81 ; Chronic hypoxic respiratory failure J96.11 ; Essential hypertension I10 ; Abdominal distension R14.0 and Benign prostatic hyperplasia with lower urinary tract symptoms, symptom details unspecified N40.1 [facility] [address] [facility] [address] [place], [place] [address] 07/28/2024 Maribeth Mclean COPD exacerbation J44.1 ; Peripheral edema R60.0 ; Paroxysmal atrial fibrillation I48.0 ; COPD, severe J44.9 ; Dependence on supplemental oxygen Z99.81 ; Chronic hypoxic respiratory failure J96.11 ; Essential hypertension I10 and Hospital discharge follow-up Z09 [facility] [address] [facility] [address] [place], [place] [address] 11/17/2024 Maribeth Mclean Peripheral edema R60.0 ; COPD, severe J44.9 ; Paroxysmal atrial fibrillation I48.0 ; Dependence on supplemental oxygen Z99.81 ; Chronic hypoxic respiratory failure J96.11 ; Essential hypertension I10 ; Iron deficiency anemia, unspecified iron deficiency anemia type D50.9 and Benign prostatic hyperplasia with lower urinary tract symptoms, symptom details unspecified N40.1 [facility] [address] [facility] [address] [place], [place] [address] 12/29/2024 Maribeth Mclean COPD, severe J44.9 ; Community acquired pneumonia of right lower lobe of lung J18.9 ; Peripheral edema R60.0 ; Paroxysmal atrial fibrillation I48.0 ; Dependence on supplemental oxygen Z99.81 ; Chronic hypoxic respiratory failure J96.11 ; Essential hypertension I10 ; Senile debility R54 ; Hospital discharge follow-up Z09 and Tobacco use Z72.0 [facility] [address] [facility] [address] [place] [address] 01/13/2024 Maribeth Mclean [facility] [address] [address] 02/18/2024 Maribeth Caridad [facility] [address] [place] [address] 04/06/2024 Maribeth Caridad [facility] [address] [place] [address] 04/21/2024 Maribeth Caridad [facility] [address] [place] [address] 05/14/2024 Maribeth Caridad [facility] [address] [place] [address] 07/23/2024 Maribeth Caridad [facility] [address] [place] [address] 07/31/2024 Maribeth Caridad [facility] [address] [place] [address] 08/04/2024 Maribeth Caridad [facility] [address] [place] [address] 09/09/2024 Maribeth Caridad [facility] [address] [place] [address] 09/17/2024 Maribeth Caridad [facility] [address] [place] [address] 11/06/2024 Maribeth Caridad [facility] [address] [place] [address] 12/22/2024 Maribeth Caridad Assessments Encounter Date Diagnosis (ICD [...] J44.1) Symptomatically improving...he plans to FU with [facility] Pulmonology which will be more convenient [...] follow-up arranged with pulmonology and denies additional questions/concerns . Encouraged complete smoking cessation 12/29/2024 COPD, severe (ICD-10 - J44.9) Breztri, prednisone, has pulmonology FU arranged. 12/29/2024 Peripheral edema (ICD-10 - R60.0) continue diuretics 11/17/2024 Paroxysmal atrial fibrillation (ICD-10 - I48.0) [...] Z99.81) Continue supplemental O2 through [facility] 12/29/2024 Paroxysmal atrial fibrillation (ICD-10 - I48.0) Regular today on exam. Continue eliquis and metoprolol 11/17/2024 Chronic hypoxic respiratory failure (ICD-10 - J96.11) 12/29/2024 Dependence on supplemental oxygen (ICD-10 - Z99.81) Continue supplemental O2 through [facility] 07/28/2024 Dependence on supplemental oxygen (ICD-10 - Z99.81) Continue supplemental O2 through [facility] 03/17/2024 Dependence on supplemental oxygen (ICD-10 - Z99.81) Continue supplemental O2 through [facility] 03/17/2024 Chronic hypoxic respiratory failure (ICD-10 - J96.11) 07/28/2024 Chronic hypoxic respiratory failure (ICD-10 - J96.11) 12/29/2024 Chronic hypoxic respiratory failure (ICD-10 - J96.11) 11/17/2024 Essential hypertension (ICD-10 - I10) improved control 11/17/2024 Iron deficiency anemia, unspecified iron deficiency anemia type (ICD-10 - D50.9) discussed obtaining labs next time he is out for FU with [facility] 12/29/2024 Essential hypertension (ICD-10 - I10) improved control, hold irbesartan 07/28/2024 Essential hypertension (ICD-10 - I10) improved control 03/17/2024 Essential hypertension (ICD-10 - I10) improved control 03/17/2024 Abdominal distension (ICD-10 - R14.0) 07/28/2024 Hospital discharge follow-up (ICD-10 - Z09) records reviewed 12/29/2024 Senile debility (ICD-10 - R54) 11/17/2024 Benign prostatic hyperplasia with lower urinary tract symptoms, symptom details unspecified (ICD-10 - N40.1) stable symptoms 12/29/2024 Hospital discharge follow-up (ICD-10 - Z09) 03/17/2024 Benign prostatic hyperplasia with lower urinary tract symptoms, symptom details unspecified (ICD-10 - N40.1) 12/29/2024 Tobacco use (ICD-10 - Z72.0) 11/17/2024 Other Patient contin ues to be [...] End Date [place]IC[place] [address] [place] [address] [id number] Carroll Garcia Self - [facility] is the insured [facility] [address] [address] [place] [address] [id number] Carroll Garcia Self - patient is the insured Medical (General) History Medical History History ICD Code Histoplasmosis - treated previously with amphotericin Lung Infection Hypertension High Cholesterol COPD/ASTHMA BPH Atrial Fib MYAH Tobacco Abuse Alcohol Abuse Hospitalization History Reason Date(Month/Year) [facility] - COPD exacerbation Dec 2024 [facility] - COPD exacerbation July 2024 [facility] JULY 2023
[2025-01-07 09:33] LABS: Adenovirus,PCR Not Detected (NotDetected); Chlamydophila Pneumoniae, PCR Not Detected (NotDetected); Coronavirus 19, PCR Not Detected (NotDetected); Coronovirus HKU1,PCR Not Detected (NotDetected); Influenza A, PCR Not Detected (NotDetected); Influenza AH1, 2009 Not Detected (NotDetected); Influenza AH1, PCR Not Detected (NotDetected); Influenza AH3,PCR Not Detected (NotDetected); Influenza B, PCR Not Detected (NotDetected); Mycoplasma Pneumoniae, PCR Not Detected (NotDetected); Parainfluenza 1, PCR Not Detected (NotDetected); Parainfluenza 2, PCR Not Detected (NotDetected); Parainfluenza 3, PCR Not Detected (NotDetected); Parainfluenza 4, PCR Not Detected (NotDetected)
[2025-01-07 09:35] LABS: NT Pro Brain Natriuretic Pep. 433 pg/mL (0-450)
[2025-01-07] MEDS: ASPIRIN 325MG TABLET 325 MG PO (09:35)
[2025-01-07] MEDS: METHYLPREDNISOLONE SOD SUCC 125MG VIAL 125 MG IV (09:35)
--- NOTE | 2025-01-07 09:36 | ED_ITS ---
Discharge Plan Disposition Patient Disposition: Admitted Condition: Fair Clinical Impressions Clinical Impression: Acute hypoxic respiratory failure, Acute hypercapnic respiratory failure, CAP (community acquired pneumonia) Discharge ED Provider: Ninfa Angulo Adult HPI General Chief complaint: Shortness of Breath/Dyspnea Stated complaint: SOA Time Seen by Provider: 01/07/25 09:25 Mode of Arrival: EMS Source of Information: Patient and EMS Description of Symptoms (Recalled from ER Triage Doc. by RN): PT PRESENTS TO ED FOR SHORTNESS OF BREATH WHICH HE REPORTS STARTED LAST NIGHT. HX OF COPD AND WEARS 2.5 LNC AT ALL TIMES. FOUND TO BE IN THE TRIPOD POSITION AT HOME TODAY WITH SAT AT 72% ON HOME OXYGEN. EMS GAVE DUONEB EN ROUTE AND PLACED ON CPAP. PT REPORTS HAVING HAD SOME CHEST PAIN AT SOME POINT WHICH IS NOW RESOLVED. History of Present Illness HPI narrative: Patient is a 79-year-old male with a past medical history of emphysema and COPD who presented to the emergency department from home with acute hypoxic failure. Per EMS, a friend called them when she arrived to the home and found the patient was in respiratory distress. They state that patient was cyanotic, in a tripod position and they were unable to obtain an O2 sat on arrival. Patient was placed on a nasal cannula placed on 6 L nasal cannula and initial O2 sat was 70%. Patient was then placed on CPAP. Patient was given 1 DuoNeb and route. Patient states that he had shortness of breath that started first that started yesterday patient does have some chest pain that has since resolved. Patient denies any fevers. Patient denies any abdominal pain nausea vomiting or diarrhea. Patient denies any headache. States that he does use DuoNebs at home. Patient states that he does not use CPAP or BiPAP at home. Patient does wear 2.5 L nasal cannula at home. Related Data Home Medications ?Medication ?Instructions ?Recorded ?Confirmed apixaban 5 mg tablet 5 mg PO BID 07/24/22 5 budesonide 160 mcg-glycopyr 9 2 puff inhalation BID 01/07/25 mcg-formot 4.8 mcg/actuation HFA inhaler (Breztri Aerosphere) famotidine 40 mg tablet 40 mg PO HS 07/20/24 5 furosemide 20 mg tablet 20 mg PO DAILYP PRN fluid re tention 07/20/24 01/07/25 ipratropium 20 mcg-albuterol 100 1 puff inhalation QID 07/20/24 01/07/25 mcg/actuation mist for inhalation (Combivent Respimat) metoprolol succinate 50 mg 50 mg PO DAILY 07/20/2408/26 tablet,extended release 24 hr primidone 50 mg tablet 50 mg PO DAILY 07/20/2408/26 prednisone 10 mg tablet 10 mg PO DAILY 01/07/2508/26 Previous Rx's ?Medication ?Instructions ?Recorded albuterol sulfate 90 mcg/actuation 2 puff inhalation Q 4HP PRN 07/29/23 aerosol inhaler Shortness Of Breath 30 days #8.5 grams pantoprazole 40 mg tablet,delayed 40 mg PO DAILY 30 da ys #30 tabs 07/29/23 release irbesartan 75 mg tablet 75 mg PO HS 30 days #30 tabs 12/22/24 tamsulosin 0.4 mg capsule 0.8 mg (2 x 0.4 mg) PO HS 30 days 12/22/24 #60 caps fluticasone propionate 50 1 spray intranasal BID #16 g yash 12/23/24 mcg/actuation nasal spray,suspension oxymetazoline 0.05 % nasal spray 1 spray intranasal BI DP PRN 12/23/24 (Afrin (oxymetazoline)) CONGESTION #22 mL Allergies Allergy/AdvReac Type Severity Reaction Status Date / Time No Known Allergies Allergy Verified 08/05/24 12:54 [facility] Disclaimer: The information contained in this section may have been updated after the patient was seen, as this information can be updated by other users. Medical History Encounter for screening for malignant neoplasm of lung Alcohol withdrawal seizure Anemia Multiple lung nodules on CT COPD mixed type Smoking greater than 30 pack years Pulmonary emphysema Appendicitis History of prostate disorder GERD (gastroesophageal reflux disease) Hypertension Afib COPD (chronic obstructive pulmonary disease) Surgical History H/O foot surgery History of appendectomy Family History Other Family history of COPD (chronic obstructive pulmonary disease) Family history of hyperlipidemia Family history of hypertension Family history of myocardial infarction Social History Smoking Status: Current every day smoker tobacco type: cigarettes packs per day: 1 pack-years: 63 alcohol intake: former substance use type: denies use current occupational status: retired Travel in the last 8 weeks?: None Have you lived/traveled outside [place] in past 30 days?: No Contact w/someone who lives/traveled outside [place] past 30 days?: No Exposure to someone with infectious disease in past 14 days?: No Do you have a fever (greater than 100.4 F or 38 C)?: No Have you tested positive for COVID-19?: No Exposed to someone with COVID-19 in past 14 days?: No Do you have a sore throat?: No Do you have a cough?: No Do you have any weakness?: No Do you have any diarrhea?: No Are you experiencing any unusual bleeding?: No Do you have any muscle aches/pain?: No Do you have any abdominal pain?: No Are you experiencing loss of taste or smell?: No Other Medical History Have you received the Flu Vaccine for this season: No Have you received the Pneumonia Vaccine: No ROS Obtained: Yes All systems reviewed & no additional complaints except as documented and Yes Systems reviewed as appropriate & no additional complaints except as documented Physical Exam General General appearance: alert and in no apparent distress Head Head exam: atraumatic, normocephalic and normal inspection Eye Eye exam: Present normal appearance, PERRL and EOMI; Absent scleral icterus ENT ENT exam: Present normal exam and normal external ear exam Neck Neck exam: Present normal inspection and full ROM Chest Chest inspection: Present normal inspection and symmetric chest wall rise Respiratory Respiratory exam: Present normal lung sounds bilaterally, respiratory distress, wheezes and other (rales in bilateral bases) Cardiovascular Cardiovascular exam: Present tachycardia, irregular rhythm and normal heart sounds Abdominal Exam Abdominal exam: Present soft and distention; Absent tenderness, guarding or rebound Extremities Exam Extremities exam: Present normal inspection and full ROM Back Exam Back exam: Present normal inspection and full ROM Neurological Exam Neurological exam: Present alert and oriented X3 Psychiatric Psychiatric exam: Present normal affect and normal mood Skin Skin exam: Present warm and dry Medical Decision Making Medical Records Medical records reviewed: Yes I reviewed the patient's medical records. Screening: Per USPSTF and CDC recommendations, given the prevalence of disease in our region, it is our hospital?s policy to screen for HIV and viral Hepatitis for all patients aged 18 and over and those with ongoing risk factors. [place] Inquiry Pt receiving controlled substance: No Vital Signs: 01/07/25 09:06 01/07/25 09:15 01/07/25 09:15 Temperature 98.7 F 98.7 F Temperature Source Axillary Pulse Rate 94 H Pulse Rate [Right] 94 H Respiratory Rate 20 22 22 Blood Pressure 126/78 126/78 Blood Pressure [Right Arm] 126/78 Blood Pressure Mean [Right Arm] 94 02 Sat by Pulse Oximetry 98 96 96 Oxygen Delivery Method BiPAP Fraction of Inspired Oxygen 01/07/25 09:24 01/07/25 09:24 01/07/25 09:26 Temperature Temperature Source Pulse Rate 90 Pulse Rate [Right] Respiratory Rate Blood Pressure Blood Pressure [Right Arm] Blood Pressure Mean [Right Arm] 02 Sat by Pulse Oximetry 96 Oxygen Delivery Method BiPAP Fraction of Inspired Oxygen 35 01/07/25 09:30 01/07/25 10:00 01/07/25 10:30 Temperature Temperature Source Pulse Rate 88 77 Pulse Rate [Right] Respiratory Rate 20 18 Blood Pressure 121/66 119/61 137/65 Blood Pressure [Right Arm] Blood Pressure Mean [Right Arm] 02 Sat by Pulse Oximetry 100 95 Oxygen Delivery Method Fraction of Inspired Oxygen 01/07/25 11:01 01/07/25 11:33 Temperature 98.7 F Temperature Source Pulse Rate 84 83 Pulse Rate [Right] Respiratory Rate 16 16 Blood Pressure 149/65 H 149/65 H Blood Pressure [Right Arm] Blood Pressure Mean [Right Arm] 02 Sat by Pulse Oximetry 97 Oxygen Delivery Method Fraction of Inspired Oxygen Lab Data Lab results reviewed: Yes I reviewed the patient's lab results. Lab Results 01/07/25 09:00: WBC 19.7 H, RBC 4.10 L, Hgb 12.5 L, Hct 40.1 L, MCV 97.8 H, MCH 30.5, MCHC 31.2 L, RDW 13.9, Plt Count 240, MPV 9.9, Neut % (Auto) 88.3 H, Lymph % (Auto) 4.6 L, [place] % (Auto) 5.7, Eos % (Auto) 0.1, Baso % (Auto) 0.4, Neut # (Auto) 17.4 H, Lymph # (Auto) 0.9, [place] # (Auto) 1.1 H, Eos # (Auto) 0.0, Baso # (Auto) 0.1, PT 10.9, INR 0.98, APTT 24.9, VBG pH 7.24 L, VBG pCO2 72.3 H, VBG pO2 35.8, VBG HCO3 30.1 H, VBG Total CO2 32.4 H, VBG O2 Saturation 61.7, VBG Base Excess 2.7 H, VBG Lactic Acid 2.4 H, Sodium 136, Potassium 5.0, Chloride 98, Carbon Dioxide 32 H, Anion Gap 11.0, BUN 35 H, Creatinine 0.90, Estimated Creat Clear 51, Estimated GFR 82, Est GFR ( Amer) 99, Glucose 104 H, Calcium 9.1, Magnesium 2.2, Total Bilirubin 1.1, AST 30, ALT 22, Alkaline Phosphatase 83, Troponin I < 0.01, NT-Pro-B Natriuret Pep 433, Total Protein 7.8 D, Albumin 4.3, Globulin 3.5 H, Albumin/Globulin Ratio 1.2, Lipase 11 L 01/07/25 09:05: Chlamy pneumoniae PCR Not detected, Adenovirus (PCR) Not detected, B. pertussis DNA (PCR) Not detected, Coronavirus OC43 (PCR) Not detected, Coronavirus HKU1 (PCR) Not detected, Coronavirus 229E (PCR) Not detected, SARS-CoV-2 (PCR) Not detected, Coronavirus NL63 (PCR) Not detected, Human Metapneumovir PCR Not detected, Influenza A (H1) PCR Not detected, Influ A (H1N1/09) PCR Not detected, Influenza A (H3) PCR Not detected, Influenza Type A (PCR) Not detected, Influenza Type B (PCR) Not detected, M. pneumoniae (PCR) Not detected, Parainfluenza 1 (PCR) Not detected, Parainfluenza 2 (PCR) Not detected, Parainfluenza 3 (PCR) Not detected, Parainfluenza 4 (PCR) Not detected, RSV (PCR) Not detected, Entero/Rhino (PCR) Not detected 01/07/25 11:00: Specimen Source Left radial, O2 % 35, ABG pH 7.30 L, ABG pCO2 54.7 H, ABG pO2 64.9 L, ABG HCO3 26.3 H, ABG Total CO2 28.0 H, ABG O2 Saturation 91, ABG Base Excess -0.1, Robbie Test acceptable, Vent Rate 18, PEEP 8 bipap 01/07/25 09:00 01/07/25 09:00 Orders (Tests/Meds): ED MEDICATIONS Generic Name Dose Route Start Last Admin Trade Name Freq PRN Reason Stop Dose Admin Acetaminophen 650 mg 01/07/25 12:20 Acetaminophen 325mg Tab PO 02/06/25 12:19 Q4HP PRN Fever or Mild Pain (1-3) Albuterol/Ipratropium 3 ml 01/07/25 14:00 01/07/25 13:27 Ipratropium/Albuterol 3 Ml [facility] 02/06/25 13:59 3 ml Q4RT DEVNEDRA Administration Budesonide 0.5 mg 01/07/25 18:00 Budesonide 0.5mg/2ml [facility] 02/06/25 17:59 BIDRT DEVENDRA Enoxaparin Sodium 40 mg 01/08/25 09:00 Enoxaparin 40mg/0.4ml Syringe SUBCUT 02/07/25 08:59 DAILY DEVENDRA Piperacillin Sod/Tazobactam 50 mls @ 100 mls/hr 01/07/25 16:30 Sod 3.375 gm/ Sodium Chloride IV 01/17/25 16:29 Q8H DEVENDRA Methylprednisolone Sodium Succinate 40 mg 01/08/25 09:00 Methylprednisolone Sod Succ 40mg Vial IV 02/07/25 08:59 DAILY DEVENDRA Nicotine 21 mg 01/07/25 12:20 Nicotine 21mg/24hr Patch TD 02/06/25 12:19 DAILYP PRN Nicotine Cravings Ondansetron HCl 4 mg 01/07/25 12:20 Ondansetron 4mg/2ml Vial IV 02/06/25 12:19 Q6HP PRN Nausea Sodium Chloride 10 ml 01/07/25 12:25 Sodium Chloride 0.9% 10ml Flush Syringe IV 02/06/25 12:24 NEEDED PRN Maintain IV Site Discontinued Medications Generic Name Dose Route Start Last Admin Trade Name Freq PRN Reason Stop Dose Admin Albuterol/Ipratropium 9 ml 01/07/25 09:11 01/07/25 09:22 Ipratropium/Albuterol 3 Ml Neb IH 01/07/25 09:12 9 ml ONCE ONE Administration Aspirin 325 mg 01/07/25 09:24 01/07/25 09:35 Aspirin 325mg Tablet PO 01/07/25 09:25 325 mg ONCE ONE Administration Ceftriaxone Sodium 2 gm/ 100 mls @ 200 mls/hr 01/07/25 09:45 01/07/25 10:58 Sodium Chloride IV 01/17/25 09:44 Infused Q24H DEVENDRA Infusion Azithromycin 500 mg/ Sodium 250 mls @ 250 mls/hr 01/07/25 09:45 01/07/25 13:13 Chloride IV 01/17/25 09:44 Infused Q24H DEVENDRA Infusion Magnesium Sulfate 2 gm in 50 mls @ 100 mls/hr 01/07/25 09:32 01/07/25 10:59 Magnesium Sulfate 2gm/50ml Premix IV 01/07/25 10:01 Infused ONCE ONE Infusion Sodium Chloride 1,000 mls @ 999 mls/hr 01/07/25 10:00 01/07/25 11:32 Sod Chlor 0.9% 1000ml Bag IV 01/07/25 11:00 Infused .Q1H1M ONE Infusion Iopamidol 70 ml 01/07/25 09:48 01/07/25 09:49 Iopamidol-370 (76%);100ml Bottle IV 01/07/25 09:49 70 ml ONCE ONE Administration Methylprednisolone Sodium Succinate 125 mg 01/07/25 09:11 01/07/25 09:35 Methylprednisolone Sod Succ 125mg Vial IV 01/07/25 09:12 125 mg ONCE ONE Administration Sodium Chloride 50 ml 01/07/25 09:48 01/07/25 09:48 0.9 % Sodium Chloride 50 Ml Vial IV 01/07/25 09:49 50 ml ONCE ONE Administration Sodium Chloride 10 ml 01/07/25 09:48 01/07/25 09:48 Sodium Chloride 0.9% 10ml Syr (Rad Only) IV 01/07/25 09:49 10 ml ONCE ONE Administration ORDERS Category Date Time Status CT angio chest PE protocol Stat Cat Scan 01/07/25 09:27 Completed Pulmonology Consult [Consult to Pulmonology] [CONS] Cons 01/07/25 10:55 Active Stat CXR --portable [XR chest portable] Stat Exams 01/07/25 09:09 Completed POCUS Point of Care (ER Only) Stat Exams 01/07/25 09:12 Completed BNP [NT Pro Brain Natriuretic Pep.] Stat Lab 01/07/25 09:00 Completed CBC w/Auto Diff [Complete Blood Count Auto Diff] Stat Lab 01/07/25 09:00 Completed CMP [Comprehensive Metabolic Panel] Stat Lab 01/07/25 09:00 Completed Full Resp Panel w/COVID ([facility]) Routine Lab 01/07/25 09:05 Completed Lipase Stat Lab 01/07/25 09:00 Completed MAG [Magnesium] Stat Lab 01/07/25 09:00 Completed PT/PTT Stat Lab 01/07/25 09:00 Completed Trop I [Troponin I] Stat Lab 01/07/25 09:00 Completed Troponin I Q3H Lab 01/07/25 11:58 Completed Troponin I Q3H Lab 01/07/25 14:45 Completed Blood Culture Stat Micro 01/07/25 09:27 Received ABG [Arterial Blood Gas] Stat RT 01/07/25 11:00 Results VBG [Venous Blood Gas] Stat RT 01/07/25 09:00 Completed EKG Request [ECG Request] Stat Y 01/07/25 10:48 Ordered Medical Decision Narrative: Patient is a 79-year-old male with a past medical history of emphysema and COPD who presents to the emergency department with shortness of breath. On arrival, patient was hypoxic, tachycardic, afebrile. Differential includes but not limited to: Pneumonia, ACS/IA, pneumothorax, pleural effusion, pulmonary embolism, COPD exacerbation, amongst others. On arrival, patient was transition from CPAP to BiPAP. Patient had diminished breath sounds. Patient was given 3 DuoNebs as well as Solu-Medrol. Patient was given 2 g of IV magnesium. Patient was given 324 of aspirin. Patient's labs were reviewed and interpreted by myself: CBC showed a leukocytosis of 19, hemoglobin was stable. INR was normal at 0.98. VBG showed acidosis with hypercapnia. CMP was unremarkable. Glucose was normal. Lactate was normal. Magnesium was normal. Initial troponin was less than 0.01. Respiratory panel was negative. Chest x-ray was reviewed and interpreted by myself: Patient's chest x-ray was compared to prior and looks like right sided pneumonia. Given patient's leukocytosis tachycardia and hypoxia, patient was given IV antibiotics for CAP coverage. Patient was given Rocephin and azithromycin. Given patient's normal BNP, patient was given a liter of IV fluids. CT PE was obtained which showed significant emphysematous disease as well as right middle lobe pneumonia and left lower lobe pneumonia. No pulmonary embolism was found. ABG was obtained which showed improvement of the hypercapnia. I discussed the case with hospital medicine and patient was ultimately admitted to the ICU for further management of his acute hypoxic respiratory failure in the setting of pneumonia and likely COPD exacerbation. Patient showed significant improvement in terms of his respiratory effort and distress. Critical Care Critical Care Time Critical Care Time: Yes Attestation: On 01/07/25, the high probability of a clinically significant, sudden or life threatening deterioration of the following system(s) required my full and direct attention, intervention and personal management. The time I documented below is in addition to time spent performing reported procedures but includes the following listed in this critical care notation. Total Time Total Critical Care Time: 35
[2025-01-07 09:40] LABS: Troponin I < 0.01 ng/ml (0.00-0.034)
[2025-01-07] MEDS: 0.9 % SODIUM CHLORIDE 50 ML VIAL IV (09:48)
[2025-01-07] MEDS: SODIUM CHLORIDE 0.9% 10ML SYR (RAD ONLY) 10 ML IV (09:48)
[2025-01-07] MEDS: IOPAMIDOL-370 (76%);100ML BOTTLE 70 ML IV (09:49)
[2025-01-07] MEDS: 0.9 % SODIUM CHLORIDE 1000ML 1,000 ML 999 ML IV (10:21)
[2025-01-07] MEDS: MAGNESIUM SULFATE IN WATER 2 GM/50 ML PIGGYBACK IV (10:23)
--- NOTE | 2025-01-07 10:50 | PC.NURSE ---
dr cedeno speaking with hospitalist
[2025-01-07] MEDS: AZITHROMYCIN 500 MG in 0.9 % SODIUM CHLORIDE 250 ML 250 MG IV (10:55)
--- NOTE | 2025-01-07 10:57 | PC.NURSE ---
[employer] operator notified of admission
[2025-01-07 11:01] LABS: ABG HCO3 26.3 mmhg (22.0-26.0); ABG PH 7.30 mmol/L (7.35-7.45); ABG PO2 64.9 mmhg (80-100); ABG TCO2 28.0 mmhg (23-27)
[2025-01-07 11:06] LABS: Source Left Radial
[2025-01-07 11:07] LABS: ABG PCO2 54.7 mmhg (35.0-45.0)
--- NOTE | 2025-01-07 11:18 | PC.NURSE ---
report given to JOE Paulino for room 262 in ICU
--- NOTE | 2025-01-07 11:42 | PC.NURSE ---
Patient arrived to the unit via stretcher from the ED at 1132
--- NOTE | 2025-01-07 11:51 | HMH.PHAINT1 ---
Pharmacy Intervention Comments: MEDICATION RECONCILIATION COMPLETED ON PATIENT USING EXTERNAL FILL HISTORY FROM PHARMACY AND DISCHARGE SUMMARY FROM PREVIOUS ADMISSION. -MARY JONES, DUANED
--- NOTE | 2025-01-07 12:12 | EXP.PULM.CON ---
History of Present Illness History of present illness: Mr. Garcia is a 79-year-old male greater than 30 PPD history of COPD chronic hypoxic respiratory failure, bullous emphysema recently seen in the hospital for hypercarbic respiratory failure discharged home on nasal cannula oxygen supplementation presented to the ER with worsening respiratory send found to be in hypercarbic respiratory failure needing noninvasive ventilatory therapy. [facility] Disclaimer: The information contained in this section may have been updated after the patient was seen, as this information can be updated by other users. Medical History Encounter for screening for malignant neoplasm of lung Alcohol withdrawal seizure Anemia Multiple lung nodules on CT COPD mixed type Smoking greater than 30 pack years Pulmonary emphysema Appendicitis History of prostate disorder GERD (gastroesophageal reflux disease) Hypertension Afib COPD (chronic obstructive pulmonary disease) Surgical History H/O foot surgery History of appendectomy Family History Other Family history of COPD (chronic obstructive pulmonary disease) Family history of hyperlipidemia Family history of hypertension Family history of myocardial infarction Social History Smoking Status: Current every day smoker tobacco type: cigarettes packs per day: 1 pack-years: 62 alcohol intake: former substance use type: denies use current occupational status: retired Travel in the last 8 weeks?: None Have you lived/traveled outside US in past 30 days?: No Contact w/someone who lives/traveled outside US past 30 days?: No Exposure to someone with infectious disease in past 14 days?: No Do you have a fever (greater than 100.4 F or 38 C)?: No Have you tested positive for COVID-19?: No Exposed to someone with COVID-19 in past 14 days?: No Do you have a sore throat?: No Do you have a cough?: No Do you have any weakness?: No Do you have any diarrhea?: No Are you experiencing any unusual bleeding?: No Do you have any muscle aches/pain?: No Do you have any abdominal pain?: No Are you experiencing loss of taste or smell?: No Review of Systems Review of Systems Review of systems (narrative): Limited as patient using noninvasive ventilator with *Cardiovascular Cardiovascular: Reports dyspnea and Reports dyspnea on exertion *Respiratory Respiratory: Denies change in phlegm color, Reports chest congestion, Reports cough, Reports dyspnea, Reports dyspnea on exertion, Denies excessive phlegm production and Reports wheezing *Gastrointestinal Gastrointestinal: Denies abdominal pain, Denies belching and Denies cramping *Musculoskeletal Musculoskeletal: Reports back pain Allergic/Immunologic Allergic/Immunologic: Reports wheezing Pulmonology Exam Inpatient Vital signs and Labs for Last 24 Hours: Temp Pulse Resp BP Pulse Ox O2 Del Method FiO2 98.7 F 83 16 149/65 H 97 BiPAP 35 01/07/25 11:33 01/07/25 11:33 01/07/25 11:33 01/07/25 11:33 01/07/25 11:01 01/07/25 09:26 01/07/25 09:24 Laboratory Results - last 24 hr 01/07/25 09:00: WBC 19.7 H, RBC 4.10 L, Hgb 12.5 L, Hct 40.1 L, MCV 97.8 H, MCH 30.5, MCHC 31.2 L, RDW 13.9, Plt Count 240, MPV 9.9, Neut % (Auto) 88.3 H, Lymph % (Auto) 4.6 L, [place] % (Auto) 5.7, Eos % (Auto) 0.1, Baso % (Auto) 0.4, Neut # (Auto) 17.4 H, Lymph # (Auto) 0.9, [place] # (Auto) 1.1 H, Eos # (Auto) 0.0, Baso # (Auto) 0.1, PT 10.9, INR 0.98, APTT 24.9, VBG pH 7.24 L, VBG pCO2 72.3 H, VBG pO2 35.8, VBG HCO3 30.1 H, VBG Total CO2 32.4 H, VBG O2 Saturation 61.7, VBG Base Excess 2.7 H, VBG Lactic Acid 2.4 H, Sodium 136, Potassium 5.0, Chloride 98, Carbon Dioxide 32 H, Anion Gap 11.0, BUN 35 H, Creatinine 0.90, Estimated Creat Clear 51, Estimated GFR 82, Est GFR ( Amer) 99, Glucose 104 H, Calcium 9.1, Magnesium 2.2, Total Bilirubin 1.1, AST 30, ALT 22, Alkaline Phosphatase 83, Troponin I < 0.01, NT-Pro-B Natriuret Pep 433, Total Protein 7.8 D, Albumin 4.3, Globulin 3.5 H, Albumin/Globulin Ratio 1.2, Lipase 11 L 01/07/25 09:05: Chlamy pneumoniae PCR Not detected, Adenovirus (PCR) Not detected, B. pertussis DNA (PCR) Not detected, Coronavirus OC43 (PCR) Not detected, Coronavirus HKU1 (PCR) Not detected, Coronavirus 229E (PCR) Not detected, SARS-CoV-2 (PCR) Not detected, Coronavirus NL63 (PCR) Not detected, Human Metapneumovir PCR Not detected, Influenza A (H1) PCR Not detected, Influ A (H1N1/09) PCR Not detected, Influenza A (H3) PCR Not detected, Influenza Type A (PCR) Not detected, Influenza Type B (PCR) Not detected, M. pneumoniae (PCR) Not detected, Parainfluenza 1 (PCR) Not detected, Parainfluenza 2 (PCR) Not detected, Parainfluenza 3 (PCR) Not detected, Parainfluenza 4 (PCR) Not detected, RSV (PCR) Not detected, Entero/Rhino (PCR) Not detected 01/07/25 11:00: Specimen Source Left radial, O2 % 35, ABG pH 7.30 L, ABG pCO2 54.7 H, ABG pO2 64.9 L, ABG HCO3 26.3 H, ABG Total CO2 28.0 H, ABG O2 Saturation 91, ABG Base Excess -0.1, Robbie Test acceptable, Vent Rate 18, PEEP 8 bipap I & O for Labs for Last 24 Hours: Intake & Output 01/04/25 01/05/25 01/06/25 01/07/25 23:59 23:59 23:59 23:59 Intake Total 1150 / 1150 Balance 1150 / 1150 Weight 130 lb Constitutional: Present severe distress Head: Present normocephalic and atraumatic ENT: Present normal exam, normal oropharynx and mucous membranes moist Neck: Present normal inspection and full ROM Respiratory: Present respiratory distress, wheezes and diminished air movement; Absent able to speak in complete sentences Cardiac: Present S1/S2, Tachycardia and radial pulses present GI: Present soft and distention; Absent tenderness or guarding Skin: Present intact; Absent cyanosis or jaundice Neuro: Present alert and awake Extremities: Present normal inspection; Absent clubbing or cyanosis Psychiatric: Present cooperative Meds Home Medications and Allergies Home Medications ?Medication ?Instructions ?Recorded ?Confirmed ?Type apixaban 5 mg tablet 5 mg PO BID 07/24/22 01/07/25 History albuterol sulfate 90 mcg/actuation 2 puff inhalation Q4HP PRN 07/29/23 01/07/25 Rx aerosol inhaler Shortness Of Breath 30 days #8.5 grams pantoprazole 40 mg tablet,delayed 40 mg PO DAILY 30 days #30 tabs 07/29/23 01/07/25 Rx release budesonide 160 mcg-glycopyr 9 2 puff inhalation BID 07/20/24 01/07/25 History mcg-formot 4.8 mcg/actuation HFA inhaler (Breztri Aerosphere) famotidine 40 mg tablet 40 mg PO HS 07/20/24 01/07/25 History furosemide 20 mg tablet 20 mg PO DAILYP PRN fluid retention 07/20/24 01/07/25 History ipratropium 20 mcg-albuterol 100 1 puff inhalation QID 07/20/24 01/07/25 History mcg/actuation mist for inhalation (Combivent Respimat) metoprolol succinate 50 mg 50 mg PO DAILY 07/20/24 01/07/25 History tablet,extended release 24 hr primidone 50 mg tablet 50 mg PO DAILY 07/20/24 01/07/25 History irbesartan 75 mg tablet 75 mg PO HS 30 days #30 tabs 12/22/24 01/07/25 Rx tamsulosin 0.4 mg capsule 0.8 mg (2 x 0.4 mg) PO HS 30 days 12/22/24 01/07/25 Rx #60 caps fluticasone propionate 50 1 spray intranasal BID #16 grams 12/23/24 01/07/25 Rx mcg/actuation nasal spray,suspension oxymetazoline 0.05 % nasal spray 1 spray intranasal BIDP PRN 12/23/24 01/07/25 Rx (Afrin (oxymetazoline)) CONGESTION #22 mL prednisone 10 mg tablet 10 mg PO DAILY 01/07/25 01/07/25 History New Prescriptions to Start Prescriptions: Allergies Allergy/AdvReac Type Severity Reaction Status Date / Time No Known Allergies Allergy Verified 08/05/24 12:54 Results Laboratory Findings 01/07/25 09:00 01/07/25 09:00 ABG ABG pH 7.30 mmol/L (7.35-7.45) L 01/07/25 11:00 ABG pCO2 54.7 mmhg (35.0-45.0) H 01/07/25 11:00 ABG pO2 64.9 mmhg (80-100) L 01/07/25 11:00 ABG O2 Saturation 91 % (90-100) 01/07/25 11:00 PT/INR, D-dimer PT 10.9 seconds (10.1-12.5) 01/07/25 09:00 INR 0.98 (0.9-1.1) 01/07/25 09:00 Abnormal lab findings: Abnormal Labs 01/07/25 01/07/25 09:00 11:00 WBC 19.7 H RBC 4.10 L Hgb 12.5 L Hct 40.1 L MCV 97.8 H MCHC 31.2 L Neut % (Auto) 88.3 H Lymph % (Auto) 4.6 L Neut # (Auto) 17.4 H [place] # (Auto) 1.1 H ABG pH 7.30 L ABG pCO2 54.7 H ABG pO2 64.9 L ABG HCO3 26.3 H ABG Total CO2 28.0 H VBG pH 7.24 L VBG pCO2 72.3 H VBG HCO3 30.1 H VBG Total CO2 32.4 H VBG Base Excess 2.7 H VBG Lactic Acid 2.4 H Carbon Dioxide 32 H BUN 35 H Glucose 104 H Globulin 3.5 H Lipase 11 L Assessment and Plan *Assessment and plan (1) Acute hypercapnic respiratory failure: Status: Acute Category: Medical Code(s): J96.02 - Acute respiratory failure with hypercapnia (2) Acute hypoxic respiratory failure: Status: Acute Category: Medical Code(s): J96.01 - Acute respiratory failure with hypoxia (3) Pneumonia: Status: Resolved Qualifiers: Laterality: bilateral Lung location: unspecified part of lung Pneumonia type: due to unspecified organism Qualified Code(s): J18.9 - Pneumonia, unspecified organism Category: Medical Code(s): J18.9 - Pneumonia, unspecified organism Plan Mr. Garcia is a 79-year-old male greater than 30 PPD history of COPD chronic hypoxic respiratory failure, bullous emphysema recently seen in the hospital for hypercarbic respiratory failure discharged home on nasal cannula oxygen supplementation presented to the ER with worsening respiratory send found to be in hypercarbic respiratory failure needing noninvasive ventilatory therapy. Afebrile. Hemodynamically stable. Blood gas upon admission venous, 7.24 and pCO2 of 72.3. Repeat blood gas showed a pH of 7.30 and pCO2 of 55. Neutrophilic predominant leukocytosis upon admission. CTA upon admission no pulmonary embolism. No right middle lobe consolidative changes, new from his most recent CT from 12/20/2024. On examination severe respiratory distress. Improved mentation. Wheezing on auscultation. Plan: Continue DuoNebs every 4 hours along with Pulmicort every 12 scheduled Change antibiotics to Zosyn pending final blood and sputum culture results. Recently discharged home on levofloxacin Continue BiPAP therapy at this point of time. Patient will need noninvasive ventilator therapy upon discharge.
--- NOTE | 2025-01-07 12:19 | EXP.HP ---
History of Present Illness *Admission Date: 01/07/25 *Reason for visit:: SOB *History of present illness: Carroll Garcia is a 79 year old male with a medical history significant for severe emphysematous bullous COPD on 2 L baseline, Afib on Eliquis, hypertension, BPH, essential tremor, GERD who presents with progressive shortness of breath since 7 PM last night. Patient states he was up essentially throughout the night giving himself breathing treatments without significant improvement in shortness of breath. Does endorse worsening cough, no fever/chills, chest pain, abdominal pain. Of note, patient was recently admitted to our facility about 3 weeks ago for similar presentation of COPD exacerbation. Workup in the ED significant for WBC 19.7, VBG pH 7.24, pCO2 67.9, procalcitonin 3.63, CRP 102.4, normal respiratory panel, CTA chest showing new right middle lobe and left lower lobe pneumonia, gastric wall thickening. He was given continuous breathing treatments, Solu-Medrol 125, 1 L LR bolus, magnesium, ceftriaxone, azithromycin and started on BiPAP with gradual improvement in symptoms. Given this presentation, ED provider discussed case with me I decided admit patient for acute on chronic hypercapnic respiratory failure secondary to COPD exacerbation, hospital-acquired pneumonia. [facility] Disclaimer: The information contained in this section may have been updated after the patient was seen, as this information can be updated by other users. Medical History Encounter for screening for malignant neoplasm of lung Alcohol withdrawal seizure Anemia Multiple lung nodules on CT COPD mixed type Smoking greater than 30 pack years Pulmonary emphysema Appendicitis History of prostate disorder GERD (gastroesophageal reflux disease) Hypertension Afib COPD (chronic obstructive pulmonary disease) Surgical History H/O foot surgery History of appendectomy Family History Other Family history of COPD (chronic obstructive pulmonary disease) Family history of hyperlipidemia Family history of hypertension Family history of myocardial infarction Social History Smoking Status: Current every day smoker tobacco type: cigarettes packs per day: 1 pack-years: 62 alcohol intake: former substance use type: denies use current occupational status: retired Travel in the last 8 weeks?: None Have you lived/traveled outside [place] in past 30 days?: No Contact w/someone who lives/traveled outside [place] past 30 days?: No Exposure to someone with infectious disease in past 14 days?: No Do you have a fever (greater than 100.4 F or 38 C)?: No Have you tested positive for COVID-19?: No Exposed to someone with COVID-19 in past 14 days?: No Do you have a sore throat?: No Do you have a cough?: No Do you have any weakness?: No Do you have any diarrhea?: No Are you experiencing any unusual bleeding?: No Do you have any muscle aches/pain?: No Do you have any abdominal pain?: No Are you experiencing loss of taste or smell?: No Other Medical History Have you received the Flu Vaccine for this season: No Have you received the Pneumonia Vaccine: No Meds Home Medications and Allergies Home Medications ?Medication ?Instructions ?Recorded ?Confirmed ?Type apixaban 5 mg tablet 5 mg PO BID 07/24/22 01/07/25 History albuterol sulfate 90 mcg/actuation 2 puff inhalation Q4HP PRN 07/29/23 01/07/25 Rx aerosol inhaler Shortness Of Breath 30 days #8.5 grams pantoprazole 40 mg tablet,delayed 40 mg PO DAILY 30 days #30 tabs 07/29/23 01/07/25 Rx release budesonide 160 mcg-glycopyr 9 2 puff inhalation BID 07/20/24 01/07/25 History mcg-formot 4.8 mcg/actuation HFA inhaler (Breztri Aerosphere) famotidine 40 mg tablet 40 mg PO HS 07/20/24 01/07/25 History furosemide 20 mg tablet 20 mg PO DAILYP PRN fluid retention 07/20/24 01/07/25 History ipratropium 20 mcg-albuterol 100 1 puff inhalation QID 07/20/24 01/07/25 History mcg/actuation mist for inhalation (Combivent Respimat) metoprolol succinate 50 mg 50 mg PO DAILY 07/20/24 01/07/25 History tablet,extended release 24 hr primidone 50 mg tablet 50 mg PO DAILY 07/20/24 01/07/25 History irbesartan 75 mg tablet 75 mg PO HS 30 days #30 tabs 12/22/24 01/07/25 Rx tamsulosin 0.4 mg capsule 0.8 mg (2 x 0.4 mg) PO HS 30 days 12/22/24 01/07/25 Rx #60 caps fluticasone propionate 50 1 spray intranasal BID #16 grams 12/23/24 01/07/25 Rx mcg/actuation nasal spray,suspension oxymetazoline 0.05 % nasal spray 1 spray intranasal BIDP PRN 12/23/24 01/07/25 Rx (Afrin (oxymetazoline)) CONGESTION #22 mL prednisone 10 mg tablet 10 mg PO DAILY 01/07/25 01/07/25 History New Prescriptions to Start Prescriptions: Allergies Allergy/AdvReac Type Severity Reaction Status Date / Time No Known Allergies Allergy Verified 08/05/24 12:54 Exam Data for Last 24 hours Vital signs and Labs for Last 24 Hours: Temp Pulse Resp BP Pulse Ox O2 Del Method FiO2 98.7 F 83 16 149/65 H 97 BiPAP 35 01/07/25 11:33 01/07/25 11:33 01/07/25 11:33 01/07/25 11:33 01/07/25 11:01 01/07/25 09:26 01/07/25 09:24 Laboratory Results - last 24 hr 01/07/25 09:00: WBC 19.7 H, RBC 4.10 L, Hgb 12.5 L, Hct 40.1 L, MCV 97.8 H, MCH 30.5, MCHC 31.2 L, RDW 13.9, Plt Count 240, MPV 9.9, Neut % (Auto) 88.3 H, Lymph % (Auto) 4.6 L, [place] % (Auto) 5.7, Eos % (Auto) 0.1, Baso % (Auto) 0.4, Neut # (Auto) 17.4 H, Lymph # (Auto) 0.9, [place] # (Auto) 1.1 H, Eos # (Auto) 0.0, Baso # (Auto) 0.1, PT 10.9, INR 0.98, APTT 24.9, VBG pH 7.24 L, VBG pCO2 72.3 H, VBG pO2 35.8, VBG HCO3 30.1 H, VBG Total CO2 32.4 H, VBG O2 Saturation 61.7, VBG Base Excess 2.7 H, VBG Lactic Acid 2.4 H, Sodium 136, Potassium 5.0, Chloride 98, Carbon Dioxide 32 H, Anion Gap 11.0, BUN 35 H, Creatinine 0.90, Estimated Creat Clear 51, Estimated GFR 82, Est GFR ( Amer) 99, Glucose 104 H, Calcium 9.1, Magnesium 2.2, Total Bilirubin 1.1, AST 30, ALT 22, Alkaline Phosphatase 83, Troponin I < 0.01, NT-Pro-B Natriuret Pep 433, Total Protein 7.8 D, Albumin 4.3, Globulin 3.5 H, Albumin/Globulin Ratio 1.2, Lipase 11 L 01/07/25 09:05: Chlamy pneumoniae PCR Not detected, Adenovirus (PCR) Not detected, B. pertussis DNA (PCR) Not detected, Coronavirus OC43 (PCR) Not detected, Coronavirus HKU1 (PCR) Not detected, Coronavirus 229E (PCR) Not detected, SARS-CoV-2 (PCR) Not detected, Coronavirus NL63 (PCR) Not detected, Human Metapneumovir PCR Not detected, Influenza A (H1) PCR Not detected, Influ A (H1N1/09) PCR Not detected, Influenza A (H3) PCR Not detected, Influenza Type A (PCR) Not detected, Influenza Type B (PCR) Not detected, M. pneumoniae (PCR) Not detected, Parainfluenza 1 (PCR) Not detected, Parainfluenza 2 (PCR) Not detected, Parainfluenza 3 (PCR) Not detected, Parainfluenza 4 (PCR) Not detected, RSV (PCR) Not detected, Entero/Rhino (PCR) Not detected 01/07/25 11:00: Specimen Source Left radial, O2 % 35, ABG pH 7.30 L, ABG pCO2 54.7 H, ABG pO2 64.9 L, ABG HCO3 26.3 H, ABG Total CO2 28.0 H, ABG O2 Saturation 91, ABG Base Excess -0.1, Robbie Test acceptable, Vent Rate 18, PEEP 8 bipap I & O for Last 24 hours: Intake & Output 01/04/25 01/05/25 01/06/25 01/07/25 23:59 23:59 23:59 23:59 Intake Total 1150 / 1150 Balance 1150 / 1150 Weight 58.967 kg Constitutional Constitutional: no acute distress and chronically ill appearing *Routine HEENT Exam Head: Present normocephalic Eye: Present EOMI and PERRL ENT: Present mucous membranes moist *Routine Neck Exam Neck: Present supple; Absent lymphadenopathy *Routine Respiratory Exam Respiratory: Present wheezes; Absent CTA bilaterally *Routine Cardiovascular Exam Cardiovascular: Present RRR *Routine Abdominal Exam Abdominal: Present soft and normoactive bowel sounds; Absent tenderness *Routine Rectal Exam Rectal:: deferred *Routine Genitalia Exam Genitalia:: deferred *Routine Extremities Exam Extremities: Present edema; Absent cyanosis or clubbing *Routine Skin Exam Skin: Present warm; Absent rash *Routine Neurological Exam Neurological: Present alert and oriented X3 Assessment and Plan *Assessment and plan (1) CAP (community acquired pneumonia): Status: Acute Category: Medical Code(s): J18.9 - Pneumonia, unspecified organism (2) Acute hypercapnic respiratory failure: Status: Acute Category: Medical Code(s): J96.02 - Acute respiratory failure with hypercapnia Plan Carroll Garcia is a 79 year old male with a medical history significant for severe emphysematous bullous COPD on 2 L baseline, Afib on Eliquis, hypertension, BPH, essential tremor, GERD who presents with progressive shortness of breath since 7 PM last night. Patient states he was up essentially throughout the night giving himself breathing treatments without significant improvement in shortness of breath. Does endorse worsening cough, no fever/chills, chest pain, abdominal pain. Of note, patient was recently admitted to our facility about 3 weeks ago for similar presentation of COPD exacerbation. Workup in the ED significant for WBC 19.7, VBG pH 7.24, pCO2 67.9, procalcitonin 3.63, CRP 102.4, normal respiratory panel, CTA chest showing new right middle lobe and left lower lobe pneumonia, gastric wall thickening. He was given continuous breathing treatments, Solu-Medrol 125, 1 L LR bolus, magnesium, ceftriaxone, azithromycin and started on BiPAP with gradual improvement in symptoms. Given this presentation, ED provider discussed case with me I decided admit patient for acute on chronic hypercapnic respiratory failure secondary to COPD exacerbation, hospital-acquired pneumonia. #Acute on chronic hypercapnic respiratory failure #Chronic hypoxic respiratory failure #COPD exacerbation #Severe bullous emphysema #Hospital-acquired pneumonia ? Presented which progressive shortness of breath, found to be hypercapnic on VBG with significant airway restriction. ? CTA chest on 01/07/2025 does show new right middle lobe and left lower lobe pneumonia. Recently admitted to our facility 3 weeks ago. ? Discussed with pulmonology, patient will need BiPAP on discharge. ABG does qualify him, pCO2 55. ? Started DuoNebs every 4 hours, Pulmicort twice daily. ? Started IV Solu-Medrol 40 mg daily. ? Continue Zosyn 3.375 mg every 8 hours, doxycycline 100 mg twice daily. ? Follow-up blood, sputum cultures, MRSA PCR. ? Follow-up morning VBG. #Lower extremity edema ? BNP normal. Likely from venous insufficiency. Continue to monitor. #A-fib ? Currently rate controlled. Hold Eliquis, started therapeutic Lovenox in the event patient needs bronchoscopy. ? Resumed home metoprolol succinate 50 mg daily. #Hypertension ? Continue home irbesartan 75 mg nightly. #BPH ? Continue home tamsulosin. #GERD #Gastritis ? IV Protonix 40 mg nightly. Consider increase Protonix on discharge due to gastritis on CT. #Essential tremor ? Continue home primidone 50 mg daily. Full code DVT prophylaxis: Therapeutic Lovenox
[2025-01-07 12:37] LABS: Troponin I < 0.01 ng/ml (0.00-0.034)
[2025-01-07 13:11] LABS: Reflex Lactic Add Lactic Reflex
[2025-01-07] MEDS: IPRATROPIUM/ALBUTEROL 3 ML NEB IH ×3 (13:27→22:54)
[2025-01-07 14:53] LABS: Lactate Venous 1.5 mmol/L (0.4-2.0); VBG HCO3 26.8 mmol/L (23-30); VBG PCO2 51.6 mmol/L (35-51); VBG PH 7.33 mmol/L (7.31-7.41); VBG PO2 67.9 mmol/L (28-40)
[2025-01-07 15:08] LABS: Lactic Acid Follow Up (RFLX 1) 1.3 mmol/L (0.7-2.1)
[2025-01-07 15:24] LABS: Troponin I < 0.01 ng/ml (0.00-0.034)
[2025-01-07 16:51] LABS: C-Reactive Protein 102.4 mg/L (0-4)
[2025-01-07] MEDS: PIPERCILLIN/TAZO 3.375 GM in 0.9 % SODIUM CHLORIDE 50 ML IV (16:56)
[2025-01-07 17:02] LABS: Procalcitonin 3.63 ng/mL (0.0-2.0)
[2025-01-07 17:23] LABS: POC Glucose,Bedside 114 gm/dL (70-110)
[2025-01-07] MEDS: BUDESONIDE 0.5MG/2ML NEB 0.5 MG IH (18:17)
[2025-01-07] MEDS: DOXYCYCLINE HYCLATE 100 MG in 0.9 % SODIUM CHLORIDE 250 ML 166.67 MG IV (21:17)
[2025-01-07] MEDS: PANTOPRAZOLE 40MG VIAL 40 MG IV (21:18)
[2025-01-07] MEDS: TRAZODONE 50MG TABLET 50 MG PO (21:18)
[2025-01-07] MEDS: IRBESARTAN 75MG TABLET 75 MG PO (21:25)
[2025-01-07] MEDS: TAMSULOSIN 0.4MG CAPSULE 0.8 MG PO (21:25)
[2025-01-08] VITALS (24 sets, daily range): BP systolic 88–149; BP diastolic 46–69; PULSE 66–110; RESP 14–22; TEMP 36.1–36.7; O2SAT 90–97; BMI 19.1
[2025-01-08] MEDS: PIPERCILLIN/TAZO 3.375 GM in 0.9 % SODIUM CHLORIDE 50 ML IV (00:47)
[2025-01-08] MEDS: IPRATROPIUM/ALBUTEROL 3 ML NEB IH ×4 (02:45→13:42)
[2025-01-08 05:34] LABS: Hematocrit 31.0 % (42.0-52.0); Immature Granulocytes % 0.7 %; Mean Corpuscular HGB Conc 31.3 g/dL (31.8-35.4); Mean Corpuscular Hemoglobin 30.2 pg (27.0-31.2); Mean Corpuscular Volume 96.6 fl (80-94); Nucleated Red Blood Cells % 0 %; Platelet Count 175 K/mm3 (142-424); Red Blood Count 3.21 M/mm3 (4.60-6.20); Red Cell Distribution Width-SD 50.4 fL; White Blood Count 11.1 K/mm3 (4.8-10.8)
[2025-01-08 05:35] LABS: Albumin Level 3.8 g/dl (3.5-5.0); Chloride 101 mmol/L (98-107)
[2025-01-08 05:36] LABS: Potassium 4.5 mmoL/L (3.5-5.1); Sodium 136 mmol/L (136-145)
[2025-01-08 05:37] LABS: Hemoglobin 10.1 g/dL (14.1-18.0)
[2025-01-08 05:38] LABS: Alanine Aminotransferase 16 U/L (12-78); Albumin/Globulin Ratio 1.8 (1.1-1.8); Alkaline Phosphatase 68 U/L (38-126); Anion Gap 8.5 mEq/L (5-15); Aspartate Amino Transferase 29 U/L (17-59); Bilirubin,Total 0.6 mg/dl (0.2-1.3); Blood Urea Nitrogen 37 mg/dl (9-20); Carbon Dioxide 31 mmol/L (22.0-30.0); Creatinine Clearance Estimated 46 mL/min (50-200); Creatinine,Serum 1.10 mg/dl (0.66-1.25); Estimated Glomerular Filt Rate 65 ml/min (>60); GFR (African American) 78 ML/MIN (>60); Globulin 2.1 g/dL (1.3-3.2); Total Protein,Serum 5.9 g/dl (6.3-8.2)
[2025-01-08 05:39] LABS: Calcium 8.2 mg/dl (8.4-10.2); Glucose 133 mg/dl (74-100); Magnesium 2.5 mg/dl (1.6-2.3)
[2025-01-08 05:54] LABS: MRSA DNA PCR Negative (Negative)
[2025-01-08] MEDS: BUDESONIDE 0.5MG/2ML NEB 0.5 MG IH (05:57)
[2025-01-08 07:29] LABS: Lactate Venous 1.6 mmol/L (0.4-2.0); VBG HCO3 28.0 mmol/L (23-30); VBG PCO2 45.7 mmol/L (35-51); VBG PH 7.41 mmol/L (7.31-7.41); VBG PO2 45.3 mmol/L (28-40)
--- NOTE | 2025-01-08 07:32 | P.PN_ITS ---
Subjective *Date: 01/08/25 *Time: 14:09 Interval history: No acute respiratory events overnight. Patient admits continued improvement in his respiratory symptoms. Pulmonology Exam Inpatient Vital signs and Labs for Last 24 Hours: Temp Pulse Resp BP Pulse Ox O2 Del Method O2 Flow Rate 96.9 F L 72 18 110/67 95 BiPAP 3 01/08/25 04:00 01/08/25 06:20 01/08/25 06:00 01/08/25 06:00 01/08/25 06:20 01/08/25 06:20 01/07/25 18:00 FiO2 25 01/08/25 06:20 Laboratory Results - last 24 hr 01/07/25 09:00: WBC 19.7 H, RBC 4.10 L, Hgb 12.5 L, Hct 40.1 L, MCV 97.8 H, MCH 30.5, MCHC 31.2 L, RDW 13.9, Plt Count 240, MPV 9.9, Neut % (Auto) 88.3 H, Lymph % (Auto) 4.6 L, [place] % (Auto) 5.7, Eos % (Auto) 0.1, Baso % (Auto) 0.4, Neut # (Auto) 17.4 H, Lymph # (Auto) 0.9, [place] # (Auto) 1.1 H, Eos # (Auto) 0.0, Baso # (Auto) 0.1, PT 10.9, INR 0.98, APTT 24.9, VBG pH 7.24 L, VBG pCO2 72.3 H, VBG pO2 35.8, VBG HCO3 30.1 H, VBG Total CO2 32.4 H, VBG O2 Saturation 61.7, VBG Base Excess 2.7 H, VBG Lactic Acid 2.4 H, Sodium 136, Potassium 5.0, Chloride 98, Carbon Dioxide 32 H, Anion Gap 11.0, BUN 35 H, Creatinine 0.90, Estimated Creat Clear 51, Estimated GFR 82, Est GFR ( Amer) 99, Glucose 104 H, Calcium 9.1, Magnesium 2.2, Total Bilirubin 1.1, AST 30, ALT 22, Alkaline Phosphatase 83, Troponin I < 0.01, NT-Pro-B Natriuret Pep 433, Total Protein 7.8 D, Albumin 4.3, Globulin 3.5 H, Albumin/Globulin Ratio 1.2, Lipase 11 L 01/07/25 09:05: Chlamy pneumoniae PCR Not detected, Adenovirus (PCR) Not detected, B. pertussis DNA (PCR) Not detected, Coronavirus OC43 (PCR) Not detected, Coronavirus HKU1 (PCR) Not detected, Coronavirus 229E (PCR) Not detected, SARS-CoV-2 (PCR) Not detected, Coronavirus NL63 (PCR) Not detected, Human Metapneumovir PCR Not detected, Influenza A (H1) PCR Not detected, Influ A (H1N1/09) PCR Not detected, Influenza A (H3) PCR Not detected, Influenza Type A (PCR) Not detected, Influenza Type B (PCR) Not detected, M. pneumoniae (PCR) Not detected, Parainfluenza 1 (PCR) Not detected, Parainfluenza 2 (PCR) Not detected, Parainfluenza 3 (PCR) Not detected, Parainfluenza 4 (PCR) Not detected, RSV (PCR) Not detected, Entero/Rhino (PCR) Not detected 01/07/25 11:00: Specimen Source Left radial, O2 % 35, ABG pH 7.30 L, ABG pCO2 54.7 H, ABG pO2 64.9 L, ABG HCO3 26.3 H, ABG Total CO2 28.0 H, ABG O2 Saturation 91, ABG Base Excess -0.1, Robbie Test acceptable, Vent Rate 18, PEEP 8 bipap 01/07/25 11:58: Troponin I < 0.01 01/07/25 12:00: C-Reactive Protein 102.4 H, Procalcitonin 3.63 H 01/07/25 14:45: Lactate 1.3, Troponin I < 0.01 01/07/25 14:56: VBG pH 7.33, VBG pCO2 51.6 H, VBG pO2 67.9 H, VBG HCO3 26.8, VBG Total CO2 28.4 H, VBG O2 Saturation 93.7 H, VBG Base Excess 0.9, VBG Lactic Acid 1.5 01/07/25 17:11: POC Glucose 114 H 01/07/25 20:54: MRSA (PCR) Negative 01/08/25 04:24: WBC 11.1 H D, RBC 3.21 L, Hgb 10.1 L D, Hct 31.0 L, MCV 96.6 H, MCH 30.2, MCHC 31.3 L, RDW 14.3, Plt Count 175 D, MPV 10.1, Neut % (Auto) 88.3 H, Lymph % (Auto) 5.2 L, [place] % (Auto) 5.7, Eos % (Auto) 0.0 L, Baso % (Auto) 0.1, Neut # (Auto) 9.8 H, Lymph # (Auto) 0.6 L, [place] # (Auto) 0.6, Eos # (Auto) 0.0, Baso # (Auto) 0.0, Sodium 136, Potassium 4.5, Chloride 101, Carbon Dioxide 31 H, Anion Gap 8.5, BUN 37 H, Creatinine 1.10 D, Estimated Creat Clear 46, Estimated GFR 65, Est GFR ( Amer) 78 D, Glucose 133 H D, Calcium 8.2 L, Magnesium 2.5 H D, Total Bilirubin 0.6, AST 29, ALT 16 D, Alkaline Phosphatase 68, Total Protein 5.9 L, Albumin 3.8 D, Globulin 2.1, Albumin/Globulin Ratio 1.8 01/08/25 06:36: VBG pH 7.41, VBG pCO2 45.7, VBG pO2 45.3 H, VBG HCO3 28.0, VBG Total CO2 29.4 H, VBG O2 Saturation 83.4 H, VBG Base Excess 3.3 H, VBG Lactic Acid 1.6 Temp Pulse Resp BP Pulse Ox O2 Del Method FiO2 98.7 F 83 16 149/65 H 97 BiPAP 35 01/07/25 11:33 01/07/25 11:33 01/07/25 11:33 01/07/25 11:33 01/07/25 11:01 01/07/25 09:26 01/07/25 09:24 Laboratory Results - last 24 hr 01/07/25 09:00: WBC 19.7 H, RBC 4.10 L, Hgb 12.5 L, Hct 40.1 L, MCV 97.8 H, MCH 30.5, MCHC 31.2 L, RDW 13.9, Plt Count 240, MPV 9.9, Neut % (Auto) 88.3 H, Lymph % (Auto) 4.6 L, [place] % (Auto) 5.7, Eos % (Auto) 0.1, Baso % (Auto) 0.4, Neut # (Auto) 17.4 H, Lymph # (Auto) 0.9, [place] # (Auto) 1.1 H, Eos # (Auto) 0.0, Baso # (Auto) 0.1, PT 10.9, INR 0.98, APTT 24.9, VBG pH 7.24 L, VBG pCO2 72.3 H, VBG pO2 35.8, VBG HCO3 30.1 H, VBG Total CO2 32.4 H, VBG O2 Saturation 61.7, VBG Base Excess 2.7 H, VBG Lactic Acid 2.4 H, Sodium 136, Potassium 5.0, Chloride 98 , Carbon Dioxide 32 H, Anion Gap 11.0, BUN 35 H, Creatinine 0.90, Estimated Creat Clear 51, Estimated GFR 82, Est GFR ( Amer) 99, Glucose 104 H, Calcium 9.1, Magnesium 2.2, Total Bilirubin 1.1, AST 30, ALT 22, Alkaline Phosphatase 83, Troponin I < 0.01, NT-Pro-B Natriuret Pep 433, Total Protein 7.8 D, Albumin 4.3, Globulin 3.5 H, Albumin/Globulin Ratio 1.2, Lipase 11 L 01/07/25 09:05: Chlamy pneumoniae PCR Not detected, Adenovirus (PCR) Not detected, B. pertussis DNA (PCR) Not detected, Coronavirus OC43 (PCR) Not detected, Coronavirus HKU1 (PCR) Not detected, Coronavirus 229E (PCR) Not detected, SARS-CoV-2 (PCR) Not detected, Coronavirus NL63 (PCR) Not detected, Human Metapneumovir PCR Not detected, Influenza A (H1) PCR Not detected, Influ A (H1N1/09) PCR Not detected, Influenza A (H3) PCR Not detected, Influenza Type A (PCR) Not detected, Influenza Type B (PCR) Not detected, M. pneumoniae (PCR) Not detected, Parainfluenza 1 (PCR) Not detected, Parainfluenza 2 (PCR) Not detected, Parainfluenza 3 (PCR) Not detected, Parainfluenza 4 (PCR) Not detected, RSV (PCR) Not detected, Entero/Rhino (PCR) Not detected 01/07/25 11:00: Specimen Source Left radial, O2 % 35, ABG pH 7.30 L, ABG pCO2 54.7 H, ABG pO2 64.9 L, ABG HCO3 26.3 H, ABG Total CO2 28.0 H, ABG O2 Saturation 91, ABG Base Excess -0.1, Robbie Test acceptable, Vent Rate 18, PEEP 8 bipap I & O for Labs for Last 24 Hours: Intake & Output 01/05/25 01/06/25 01/07/25 01/08/25 23:59 23:59 23:59 23:59 Intake Total 2079 50 / 50 Output Total 0 / 0 200 / 200 Balance 2079 -150 / -150 Weight 130 lb 129 lb 2 oz Intake & Output 01/04/25 01/05/25 01/06/25 01/07/25 23:59 23:59 23:59 23:59 Intake Total 1150 / 1150 Balance 1150 / 1150 Weight 130 lb Constitutional: Present moderate distress Head: Present normocephalic and atraumatic ENT: Present normal exam, normal oropharynx and mucous membranes moist Neck: Present normal inspection and full ROM Respiratory: Present respiratory distress, wheezes and able to speak in complete sentences; Absent diminished air movement Cardiac: Present S1/S2, Tachycardia and radial pulses present GI: Present soft and distention; Absent tenderness or guarding Skin: Present intact; Absent cyanosis or jaundice Neuro: Present alert, awake and oriented x 3 Extremities: Present normal inspection; Absent clubbing or cyanosis Psychiatric: Present cooperative Assessment and Plan *Assessment and plan (1) Acute hypercapnic respiratory failure: Status: Acute Category: Medical Code(s): J96.02 - Acute respiratory failure with hypercapnia (2) Acute hypoxic respiratory failure: Status: Acute Category: Medical Code(s): J96.01 - Acute respiratory failure with hypoxia (3) Pneumonia: Status: Resolved Qualifiers: Laterality: bilateral Lung location: unspecified part of lung Pneumonia type: due to unspecified organism Qualified Code(s): J18.9 - Pneumonia, unspecified organism Category: Medical Code(s): J18.9 - Pneumonia, unspecified organism Plan Mr. Garcia is a 79-year-old male greater than 30 PPD history of COPD chronic hypoxic respiratory failure, bullous emphysema recently seen in the hospital for hypercarbic respiratory failure discharged home on nasal cannula oxygen supplementation presented to the ER with worsening respiratory send found to be in hypercarbic respiratory failure needing noninvasive ventilatory therapy. Afebrile. Hemodynamically stable. Blood gas upon admission venous, 7.24 and pCO2 of 72.3. Repeat blood gas showed a pH of 7.30 and pCO2 of 55. Neutrophilic predominant leukocytosis upon admission. CTA upon admission no pulmonary embolism. Right middle lobe consolidative changes, new from his most recent CT from 12/20/2024. On initial examination severe respiratory distress. Improved mentation. Wheezing on auscultation. Interval update: No acute respiratory vents overnight. Tolerating noninvasive ventilator therapy. Antibiotics changed to Zosyn pending culture results given New consolidative changes on CT scan. Blood cultures no growth at 24 hours. Sputum Gram stain less than 10 WBCs. Plan: Continue DuoNebs every 4 hours along with Pulmicort every 12 scheduled Antibiotics can be changed to levofloxacin based on his prior sputum cultures to complete a total of 5-day course. Patient needs repeat sputum samples prior to discharge given suboptimal initial sample of consolidative changes noted on CT scan in the setting of his recent hospitalization concerning for HAP Continue BiPAP therapy at night and while asleep. 16/8 and FiO2 of 28%. # Thank you for involving pulmonary in this patient care.
--- NOTE | 2025-01-08 08:58 | HMH.PHAAMS2 ---
- Antimicrobial Stewardship Review culture & sensitivity review Stewardship interventions: culture & sensitivity review, reviewed - no change Comments: possible pneumonia, empiric coverage, failed outpatient levaquin therapy
[2025-01-08] MEDS: METHYLPREDNISOLONE SOD SUCC 40MG VIAL 40 MG IV (09:15)
[2025-01-08] MEDS: PIPERACILLIN/TAZO 4.5 GM in 0.9 % SODIUM CHLORIDE 100 ML IV (09:16)
[2025-01-08] MEDS: PRIMIDONE 50MG TABLET 50 MG PO (09:16)
--- NOTE | 2025-01-08 09:29 | SW/DCPLANNER ---
PT/OT recommend SNF or 24/7 care. Discussed this with patient who states he is not going to rehab as he will not leave his home even for a short amount of time and he has no one that can stay all the time. Discussed the importance of safety and being at home without 24/7 would not be in the best interest of his safety. Patient is adamant when he is ready for discharge he will be going home but is open to home health. Will continue to follow.
--- NOTE | 2025-01-08 09:45 | HMH.OTEV ---
OT Evaluation Rehab OT IP Evaluation Start: 01/07/25 13:03 Freq: ONCE Status: Active Protocol: Document 01/08/25 09:37 BRE (Rec: 01/08/25 09:45 BRE [id number]) Rehab OT IP Assessment Subjective History Per HPI narrative: Patient is a 79-year-old male with a past medical history of emphysema and COPD who presented to the emergency department from home with acute hypoxic failure. Per EMS, a friend called them when she arrived to the home and found the patient was in respiratory distress. They state that patient was cyanotic, in a tripod position and they were unable to obtain an O2 sat on arrival. Patient was placed on a nasal cannula placed on 6 L nasal cannula and initial O2 sat was 70%. Patient was then placed on CPAP. Patient was given 1 DuoNeb and route. Patient states that he had shortness of breath that started first that started yesterday patient does have some chest pain that has since resolved. Patient denies any fevers. Patient denies any abdominal pain nausea vomiting or diarrhea. Patient denies any headache. States that he does use DuoNebs at home. Patient states that he does not use CPAP or BiPAP at home. Patient does wear 2.5 L nasal cannula at home. Related Data Subjective I hate this. Pt was supine in bed when therapy entered room. Pt agreed to OT eval this AM. Pt orient x3. pt reported they live alone in home with 2 step-ups to enter back door. Pt reports they have a walker and cane for FM, but do not use. Pt reported they are normally Ind in ADLs but there is increased difficulty to perform these tasks due to weakness and poor endurance. Pt reported they do not drive and have a friend to come assist in getting groceries and cleaning 2x a wk. Pt reported they have the Dr that comes to home. Pt reported they have had 1 fall in past 30 days. Pt reported they are normally on O2 at home around 2 1/2 L . Pt agreed to sit on EOB. Pt went from supine to EOB SBA. Pt then completed two STS to adjust sheets and replace evette under pt as it was wet. During these STS pt's O2 dropped and pt was educated mx times for deep breathing. Therapy adjusted O2 to 4 L to help bring O2 back to above 90 as it dropped to 82. Pt able to regulate breathing and nursing notified and reported to therapy they would adjust settings. Pt then went to supine position in bed with SBA and was left supine in bed with call light and all other needs within reach. Objective Patient Orientation Person,Place,Situation Right Upper WFL Extremity Gross ROM Left Upper Extremity WFL Gross ROM Bed Mobility bed mobility-scooting,bed mobility - supine/sit Assist Level Supervision/Stand by Transfer Training Sit/Stand Transfer Assist Level Supervision/Stand by Chair Transfer None Assistive Devices Decrease in Yes Endurance Rehab OT IP prob,goals,plan Problems Date of Evaluation: 01/08/25 OT IP Problems Bed Mobility,Transfers,Balance,Self care,Safety Rehab Potential Rehab Potential Good Equipment Needs Assistive Devices Rolling / Wheeled Walker Plan OT intervention Plan Bed Mobility,Transfers,Balance,Self care,Safety, Therapeutic Exercise OT Plan Frequency Daily Duration LOS Discharge Goals Bed Mobility Ability Independent Sit to Stand Chair Independent Transfer Ability Chair Transfer Independent Ability Chair Transfer Sit to/from Ambulatory Technique Chair Transfer Rolling Walker Assistive Devices Feeding Ability Assist with Tray Set Up Commode/Toilet Raised Toilet Seat,Grab Bars Transfer Assistive Devices Decrease in No Endurance Discharge Plan OT Discharge Plan At this time, pt presents below baseline and would benefit from skilled acute OT services and interventions to address functional limitations in occupational performance while admitted at [facility]. Once medically stable and DC from [facility], pt would benefit from inpt rehab to further address these deficits or HH OT services depending on how pt improves while admitted at [facility]. Eval Complexity Eval Charge Codes 21385 - Moderate Complexity PHYSICIAN CERTIFICATION: I certify the specified therapy services for Carroll Garcia are required, authorized, and reviewed every 30 days.
--- NOTE | 2025-01-08 09:51 | HMH.PTEV ---
Physical Therapy Evaluation Rehab PT IP Evaluation Start: 01/07/25 13:03 Freq: ONCE Status: Active Protocol: Document 01/08/25 09:46 KRISHNA (Rec: 01/08/25 09:51 KRISHNA [id number]) Subjective/History History History Per H&P: Carroll Garcia is a 79 year old male with a medical history significant for severe emphysematous bullous COPD on 2 L baseline, Afib on Eliquis, hypertension, BPH, essential tremor, GERD who presents with progressive shortness of breath since 7 PM last night. Patient states he was up essentially throughout the night giving himself breathing treatments without significant improvement in shortness of breath. Does endorse worsening cough, no fever/chills, chest pain, abdominal pain. Of note, patient was recently admitted to our facility about 3 weeks ago for similar presentation of COPD exacerbation. Workup in the ED significant for WBC 19.7, VBG pH 7.24, pCO2 67.9, procalcitonin 3.63, CRP 102.4, normal respiratory panel , CTA chest showing new right middle lobe and left lower lobe pneumonia, gastric wall thickening. He was given continuous breathing treatments, Solu-Medrol 125, 1 L LR bolus, magnesium, ceftriaxone, azithromycin and started on BiPAP with gradual improvement in symptoms. Given this presentation, ED provider discussed case with me I decided admit patient for acute on chronic hypercapnic respiratory failure secondary to COPD exacerbation, hospital-acquired pneumonia. Subjective Subjective Pt reports he lives alone in home with 2 step-ups to enter back door. Pt owns RW and SPC but does not use an AD. Pt reports being IND with all functional mobility. Pt reports he does not drive. Pt reports 1 fall in past 30 days. Pt on O2 at home around 2.5L. [facility] How much help from another person do you currently need... Turning from your None back to your side while in a flat bed without using bedrails? Moving from lying on None back to sitting on the side of a flat bed without using bedrails? Moving to and from a A little bed to a chair ( including a wheelchair)? Standing up from a A little chair using your arms? (e.g., wheelchair, bedside chair) Walking in hospital A little room? Climbing 3-5 steps A little with a railing? Mobility Score [address] [facility] Mobility 6 Walk 10 steps or more Mobility Calculator Rehab PT IP Eval Objective Appearance Patient Behavior Appropriate,Cooperative Patient Orientation Person,Place,Situation Difficulty following none instructions Speech Pattern Clear Ambulation Patient Able to No Ambulate Balance Ability to Arise Able, uses arms to help Sitting Balance Steady, safe Standing Balance Steady, wide stance Transfers Bed Transfer Ability Supervision/Stand by Sit to Stand Bed Supervision/Stand by Transfer Ability Rehab PT IP prob,goals,plan Problems Date of Evaluation: 01/08/25 PT IP Problems Bed Mobility,Transfers,Gait,Balance,Self care,Safety Rehab Potential Rehab Potential Good Plan PT Intervention Plan Bed Mobility,Transfers,Gait,Balance,Self care,Safety, Therapeutic Exercise Other Intervention 1-2 times Plan PT Plan Frequency Daily Duration LOS Discharge Goals Bed Transfer Ability Independent Sit to Stand Chair Independent Transfer Ability Ambulation Distance 10 (feet) Discharge Plan PT Discharge Plan At this time, pt is most appropriate for inpatient rehab facility placement to address deficits and maximize safety with mobility. If pt unable to receive rehab placement, PT recommending pt receive 24/7 assistance at home with PT services. Pt would benefit from skilled acute care PT while at [facility] to prevent further functional decline. Eval Complexity Eval Charge Codes 82540 - Moderate Complexity PHYSICIAN CERTIFICATION: I certify the specified therapy services for Carroll Garcia are required, authorized, and reviewed every 30 days.
--- NOTE | 2025-01-08 12:02 | SW/DCPLANNER ---
Spoke with patient regarding home health services once she is medically stable and ready for discharge. Patient stated that he is not interested in home health at this time. Patient stated that he feels he can do just as much as they can at home due to him having home health in the past. Carrol Mills
--- NOTE | 2025-01-08 12:40 | EXP.DC.SUM ---
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 Patient states he was up essentially throughout the night giving himself breathing treatments without significant improvement in shortness of breath. Does endorse worsening cough, no fever/chills, chest pain, abdominal pain. Of note, patient was recently admitted to our facility about 3 weeks ago for similar presentation of COPD exacerbation. Workup in the ED significant for WBC 19.7, VBG pH 7.24, pCO2 67.9, procalcitonin 3.63, CRP 102.4, normal respiratory panel, CTA chest showing new right middle lobe and left lower lobe pneumonia, gastric wall thickening. He was given continuous breathing treatments, Solu-Medrol 125, 1 L LR bolus, magnesium, ceftriaxone, azithromycin and started on BiPAP with gradual improvement in symptoms. Given this presentation, ED provider discussed case with me I decided admit patient for acute on chronic hypercapnic respiratory failure secondary to COPD exacerbation, hospital-acquired pneumonia. 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 Patient states he was up essentially throughout the night giving himself breathing treatments without significant improvement in shortness of breath. Does endorse worsening cough, no fever/chills, chest pain, abdominal pain. Of note, patient was recently admitted to our facility about 3 weeks ago for similar presentation of COPD exacerbation. Workup in the ED significant for WBC 19.7, VBG pH 7.24, pCO2 67.9, procalcitonin 3.63, CRP 102.4, normal respiratory panel, CTA chest showing new right middle lobe and left lower lobe pneumonia, gastric wall thickening. He was given continuous breathing treatments, Solu-Medrol 125, 1 L LR bolus, magnesium, ceftriaxone, azithromycin and started on BiPAP with gradual improvement in symptoms. Given this presentation, ED provider discussed case with me I decided admit patient for acute on chronic hypercapnic respiratory failure secondary to COPD exacerbation, hospital-acquired pneumonia. After further review, patient should have been observation status from admission. #Acute on chronic hypercapnic respiratory failure #Chronic hypoxic respiratory failure #COPD exacerbation #Severe bullous emphysema #Hospital-acquired pneumonia ? Presented which progressive shortness of breath, found to be hypercapnic on VBG with significant airway restriction. ? CTA chest on 01/07/2025 does show new right middle lobe and left lower lobe pneumonia. Recently admitted to our facility 3 weeks ago. ? Discussed with pulmonology, patient will need BiPAP nightly on discharge. ABG does qualify him, pCO2 55. ? Clinically improved with DuoNebs, Pulmicort, steroids, Zosyn, doxycycline. Continues to have baseline dyspnea on exertion given severe bullous emphysema. ? Discharged with prednisone 40 mg for 3 more days, levofloxacin 750 mg for 5 more days, continue Breztri daily. ? Discharged with BiPAP with settings of 16/8 and FiO2 of 28%. Will follow-up with pulmonology within 2 weeks. #Lower extremity edema ? BNP normal. Likely from venous insufficiency. Continue to monitor. #A-fib ? Currently rate controlled. Continue home metoprolol succinate 50 mg daily, Eliquis 5 mg twice daily. #Hypertension ? Continue home irbesartan 75 mg nightly. #BPH ? Continue home tamsulosin. #GERD #Gastritis ? Continue Protonix 40 mg nightly. #Essential tremor ? Continue home primidone 50 mg daily. Total time spent on discharge: 32 minutes on chart review, counseling, documentation, and direct care with patient. Exam Data for Last 24 hours Vital signs and Labs for Last 24 Hours: Temp Pulse Resp BP Pulse Ox O2 Del Method O2 Flow Rate 98.1 F 82 20 133/57 L 94 L Nasal Cannula 2 01/08/25 08:01 01/08/25 12:00 01/08/25 10:00 01/08/25 10:00 01/08/25 10:00 01/08/25 11:00 01/08/25 11:00 FiO2 25 01/08/25 06:20 Laboratory Results - last 24 hr 01/07/25 12:00: C-Reactive Protein 102.4 H, Procalcitonin 3.63 H 01/07/25 14:45: Lactate 1.3, Troponin I < 0.01 01/07/25 14:56: VBG pH 7.33, VBG pCO2 51.6 H, VBG pO2 67.9 H, VBG HCO3 26.8, VBG Total CO2 28.4 H, VBG O2 Saturation 93.7 H, VBG Base Excess 0.9, VBG Lactic Acid 1.5 01/07/25 17:11: POC Glucose 114 H 01/07/25 20:54: MRSA (PCR) Negative 01/08/25 04:24: WBC 11.1 H D, RBC 3.21 L, Hgb 10.1 L D, Hct 31.0 L, MCV 96.6 H, MCH 30.2, MCHC 31.3 L, RDW 14.3, Plt Count 175 D, MPV 10.1, Neut % (Auto) 88.3 H, Lymph % (Auto) 5.2 L, Thomas % (Auto) 5.7, Eos % (Auto) 0.0 L, Baso % (Auto) 0.1, Neut # (Auto) 9.8 H, Lymph # (Auto) 0.6 L, Thomas # (Auto) 0.6, Eos # (Auto) 0.0, Baso # (Auto) 0.0, Sodium 136, Potassium 4.5, Chloride 101, Carbon Dioxide 31 H, Anion Gap 8.5, BUN 37 H, Creatinine 1.10 D, Estimated Creat Clear 46, Estimated GFR 65, Est GFR ( Amer) 78 D, Glucose 133 H D, Calcium 8.2 L, Magnesium 2.5 H D, Total Bilirubin 0.6, AST 29, ALT 16 D, Alkaline Phosphatase 68, Total Protein 5.9 L, Albumin 3.8 D, Globulin 2.1, Albumin/Globulin Ratio 1.8 01/08/25 06:36: VBG pH 7.41, VBG pCO2 45.7, VBG pO2 45.3 H, VBG HCO3 28.0, VBG Total CO2 29.4 H, VBG O2 Saturation 83.4 H, VBG Base Excess 3.3 H, VBG Lactic Acid 1.6 I & O for Last 24 hours: Intake & Output 01/05/25 01/06/25 01/07/25 01/08/25 23:59 23:59 23:59 23:59 Intake Total 2079 / 2079 360 / 360 Output Total 0 / 0 200 / 200 Balance 2079 160 / 160 Weight 58.967 kg 58.57 kg Microbiology Reports for the Last 24 Hours: Microbiology 01/08/25 08:13 Sputum - Expectorated Sputum Gram Stain - Final 01/07/25 09:27 Blood Blood Culture - Preliminary NO GROWTH AFTER 24 HOURS 01/07/25 09:19 Blood Blood Culture - Preliminary NO GROWTH AFTER 24 HOURS Constitutional Constitutional: no acute distress and chronically ill appearing *Routine HEENT Exam Head: Present normocephalic Eye: Present EOMI and PERRL ENT: Present mucous membranes moist *Routine Neck Exam Neck: Present supple; Absent lymphadenopathy *Routine Respiratory Exam Respiratory: Present distant breath sounds; Absent CTA bilaterally *Routine Cardiovascular Exam Cardiovascular: Present RRR *Routine Abdominal Exam Abdominal: Present soft and normoactive bowel sounds; Absent tenderness *Routine Extremities Exam Extremities: Absent cyanosis, clubbing or edema *Routine Skin Exam Skin: Present warm; Absent rash *Routine Neurological Exam Neurological: Present alert and oriented X3 Results Data Completed and Pending Labs on day of discharge: Labs from last 24 hours 01/08/25 01/08/25 01/07/25 06:36 04:24 20:54 WBC 11.1 H D RBC 3.21 L Hgb 10.1 L D Hct 31.0 L MCV 96.6 H MCH 30.2 MCHC 31.3 L RDW 14.3 Plt Count 175 D MPV 10.1 Neut % (Auto) 88.3 H Lymph % (Auto) 5.2 L Thomas % (Auto) 5.7 Eos % (Auto) 0.0 L Baso % (Auto) 0.1 Neut # (Auto) 9.8 H Lymph # (Auto) 0.6 L Thomas # (Auto) 0.6 Eos # (Auto) 0.0 Baso # (Auto) 0.0 VBG pH 7.41 VBG pCO2 45.7 VBG pO2 45.3 H VBG HCO3 28.0 VBG Total CO2 29.4 H VBG O2 Saturation 83.4 H VBG Base Excess 3.3 H VBG Lactic Acid 1.6 Sodium 136 Potassium 4.5 Chloride 101 Carbon Dioxide 31 H Anion Gap 8.5 BUN 37 H Creatinine 1.10 D Estimated Creat Clear 46 Estimated GFR 65 Est GFR ( Amer) 78 D Glucose 133 H D POC Glucose Lactate Calcium 8.2 L Magnesium 2.5 H D Total Bilirubin 0.6 AST 29 ALT 16 D Alkaline Phosphatase 68 Troponin I C-Reactive Protein Total Protein 5.9 L Albumin 3.8 D Globulin 2.1 Albumin/Globulin Ratio 1.8 Procalcitonin MRSA (PCR) Negative 01/07/25 01/07/25 01/07/25 17:11 14:56 14:45 WBC RBC Hgb Hct MCV MCH MCHC RDW Plt Count MPV Neut % (Auto) Lymph % (Auto) Thomas % (Auto) Eos % (Auto) Baso % (Auto) Neut # (Auto) Lymph # (Auto) Thomas # (Auto) Eos # (Auto) Baso # (Auto) VBG pH 7.33 VBG pCO2 51.6 H VBG pO2 67.9 H VBG HCO3 26.8 VBG Total CO2 28.4 H VBG O2 Saturation 93.7 H VBG Base Excess 0.9 VBG Lactic Acid 1.5 Sodium Potassium Chloride Carbon Dioxide Anion Gap BUN Creatinine Estimated Creat Clear Estimated GFR Est GFR ( Amer) Glucose POC Glucose 114 H Lactate 1.3 Calcium Magnesium Total Bilirubin AST ALT Alkaline Phosphatase Troponin I < 0.01 C-Reactive Protein Total Protein Albumin Globulin Albumin/Globulin Ratio Procalcitonin MRSA (PCR) 01/07/25 12:00 WBC RBC Hgb Hct MCV MCH MCHC RDW Plt Count MPV Neut % (Auto) Lymph % (Auto) Thomas % (Auto) Eos % (Auto) Baso % (Auto) Neut # (Auto) Lymph # (Auto) Thomas # (Auto) Eos # (Auto) Baso # (Auto) VBG pH VBG pCO2 VBG pO2 VBG HCO3 VBG Total CO2 VBG O2 Saturation VBG Base Excess VBG Lactic Acid Sodium Potassium Chloride Carbon Dioxide Anion Gap BUN Creatinine Estimated Creat Clear Estimated GFR Est GFR ( Amer) Glucose POC Glucose Lactate Calcium Magnesium Total Bilirubin AST ALT Alkaline Phosphatase Troponin I C-Reactive Protein 102.4 H Total Protein Albumin Globulin Albumin/Globulin Ratio Procalcitonin 3.63 H MRSA (PCR) Preliminary micro results at discharge 01/07/25 09:27 Blood Culture - Preliminary Blood NO GROWTH AFTER 24 HOURS 01/07/25 09:19 Blood Culture - Preliminary Blood NO GROWTH AFTER 24 HOURS DS: Diagnosis Discharge Diagnosis (1) Acute hypercapnic respiratory failure: Status: Acute Code(s): J96.02 - Acute respiratory failure with hypercapnia (2) Acute hypoxic respiratory failure: Status: Acute Code(s): J96.01 - Acute respiratory failure with hypoxia (3) Pneumonia: Status: Resolved Code(s): J18.9 - Pneumonia, unspecified organism Qualifiers: Laterality: bilateral Lung location: unspecified part of lung Pneumonia type: due to unspecified organism Qualified Code(s): J18.9 - Pneumonia, unspecified organism Meds Home Medications and Allergies Home Medications ?Medication ?Instructions ?Recorded ?Confirmed ?Type apixaban 5 mg tablet 5 mg PO BID 07/24/22 01/07/25 History albuterol sulfate 90 mcg/actuation 2 puff inhalation Q4HP PRN 07/29/23 01/07/25 Rx aerosol inhaler Shortness Of Breath 30 days #8.5 grams pantoprazole 40 mg tablet,delayed 40 mg PO DAILY 30 days #30 tabs 07/29/23 01/07/25 Rx release budesonide 160 mcg-glycopyr 9 2 puff inhalation BID 07/20/24 01/07/25 History mcg-formot 4.8 mcg/actuation HFA inhaler (Breztri Aerosphere) famotidine 40 mg tablet 40 mg PO HS 07/20/24 01/07/25 History furosemide 20 mg tablet 20 mg PO DAILYP PRN fluid retention 07/20/24 01/07/25 History ipratropium 20 mcg-albuterol 100 1 puff inhalation QID 07/20/24 01/07/25 History mcg/actuation mist for inhalation (Combivent Respimat) metoprolol succinate 50 mg 50 mg PO DAILY 07/20/24 01/07/25 History tablet,extended release 24 hr primidone 50 mg tablet 50 mg PO DAILY 07/20/24 01/07/25 History irbesartan 75 mg tablet 75 mg PO HS 30 days #30 tabs 12/22/24 01/07/25 Rx tamsulosin 0.4 mg capsule 0.8 mg (2 x 0.4 mg) PO HS 30 days 12/22/24 01/07/25 Rx #60 caps fluticasone propionate 50 1 spray intranasal BID #16 grams 12/23/24 01/07/25 Rx mcg/actuation nasal spray,suspension oxymetazoline 0.05 % nasal spray 1 spray intranasal BIDP PRN 12/23/24 01/07/25 Rx (Afrin (oxymetazoline)) CONGESTION #22 mL prednisone 10 mg tablet 10 mg PO DAILY 01/07/25 01/07/25 History Held on 01/08/25. Instructions: Resume on 01/12/25. ipratropium 0.5 mg-albuterol 3 mg 3 ml inhalation Q4RT PRN shortness 01/08/25 Rx (2.5 mg base)/3 mL nebulization of breath or wheezing #90 mL soln levofloxacin 750 mg tablet 750 mg PO DAILY 5 days #5 tabs 01/08/25 Rx prednisone 20 mg tablet 40 mg (2 x 20 mg) PO DAILY 3 days 01/08/25 Rx #6 tabs New Prescriptions to Start Prescriptions: ipratropium-albuterol Luizla,Byron levofloxacin Familia[place]ala,Byron prednisone [place],Byron Allergies Allergy/AdvReac Type Severity Reaction Status Date / Time No Known Allergies Allergy Verified 08/05/24 12:54 Discharge Plan Disposition Patient Disposition: Home, Self-Care Condition: Fair Follow up Plan Follow up with: Stephan Mabry MD [Physician, Pulmonology] - 1 week Referral Note: The office is aware of your need for an appointment. Please call Saturday01/11/25 if you have no recived a call. Thank you! Maribeth Mclean APRN [Primary Care Provider, Medical] - 01/11/25 12:45 pm Prescriptions/Medication Reconciliation: New levofloxacin 750 mg tablet 750 mg PO DAILY 5 Days Qty: 5 0RF prednisone 20 mg tablet 40 mg PO DAILY 3 Days Qty: 6 0RF ipratropium-albuterol 0.5 mg-3 mg(2.5 mg base)/3 mL Solution For Nebulization 3 ml inhalation Q4RT PRN (Reason: shortness of breath or wheezing) Qty: 90 1RF Continued apixaban 5 MG tablet 5 mg PO BID pantoprazole 40 mg Tablet,Delayed Release (Dr/Ec) 40 mg PO DAILY 30 Days Qty: 30 0RF albuterol sulfate 90 mcg/actuation HFA aerosol inhaler 2 puff inhalation Q4HP PRN (Reason: Shortness Of Breath) 30 Days Qty: 8.5 0RF metoprolol succinate 50 mg tablet extended release 24 hr 50 mg PO DAILY Patient Comments: TAKE ONE TABLET BY MOUTH ONCE A DAY FOR HYPERTENSION AND A. FIB Breztri Aerosphere 160-9-4.8 mcg/actuation HFA aerosol inhaler 2 puff INHALATION BID Patient Comments: INHALE 2 PUFFS BY MOUTH 2 TIMES A DAY primidone 50 mg tablet 50 mg PO DAILY Patient Comments: TAKE ONE TABLET BY MOUTH ONCE A DAY FOR TREMOR famotidine 40 mg tablet 40 mg PO HS Patient Comments: TAKE ONE TABLET BY MOUTH AT BEDTIME Combivent Respimat 20-100 mcg/actuation mist 1 puff INHALATION QID Patient Comments: INHALE 1 PUFF FOUR TIMES DAILY FOR COPD furosemide 20 mg tablet 20 mg PO DAILYP PRN (Reason: fluid retention) tamsulosin 0.4 mg Capsule 0.8 mg PO HS 30 Days Qty: 60 0RF irbesartan 75 mg Tablet 75 mg PO HS 30 Days Qty: 30 0RF fluticasone propionate 50 mcg/actuation Gantt,Suspension 1 spray intranasal BID Qty: 16 0RF oxymetazoline [Afrin (oxymetazoline)] 0.05 % Gantt,Non-Aerosol 1 spray intranasal BIDP PRN (Reason: CONGESTION) Qty: 22 0RF Held prednisone 10 mg tablet 10 mg PO DAILY Hold Instructions: Resume on 01/12/25. Patient Comments: TAKE 1 TO 2 TABLETS BY MOUTH ONCE DAILY FOR 30 DAYS Problem Reconciliation Problems Reviewed?: Yes Patient Discharge Instructions Additional Instructions: It is very important you follow-up with Dr. Mabry within the next 2 weeks to ensure you are getting better after discharge. Otherwise, there is a high chance you will return to the hospital sick again. Print Language: Danish Providers Primary Care Provider: Maribeth Mclean Admit Provider: Byron Shelton Attending Provider: Byron Shelton
--- NOTE | 2025-01-08 14:37 | PC.NURSE ---
Primary RN spoke with [facility] at this time. Monisha at [facility] states they will send a mask with the Bipap to the patients home. Continuation of care plan.
--- NOTE | 2025-01-08 14:53 | PC.NURSE ---
Patient educated to call and schedule follow up with by Saturday, Jan 11. Patient educated on the importance of follow up. Patient educated on discharge instructions. Patient verbalizes understanding. IV catheters removed. IV catheters intact. Patient tolerated well.
--- NOTE | 2025-01-08 15:05 | PC.NURSE ---
Patient changing clothes for discharge. Patient complains of chest pain and shortness of breath at this time. Patients oxygen saturation of 84% on 2 L NC. Patient educated on breathing exercises. Patients oxygen saturation of 92% on 2 L NC after sitting on side of bed and resting. Patients BP of 151/63 (92), HR of 116. Byron Shelton notified. states he does not want a 12 Lead EKG completed at this time. No new orders received. 1510 Cat at bedside. requests a walk test to be completed. During patients walk test patients oxygen saturation dropped to 86% on 2 L NC. Patients oxygen increased to 3 L NC. aware. recommends patient to stay another night. Patient states he does not want to stay another night. Byron Shelton states I will order Ipratroprium to [facility]. Patient verbalizes understanding. Patient states he will pick up driver medication. Primary RN and DELICATESSEN CLERK took patient down to front exit via wheelchair. Primary RN educated patients friend of new medication that needs to be picked up. Patients friend verbalizes understanding. Patient discharged at 1531.
--- NOTE | 2025-01-11 11:13 | SW/DCPLANNER ---
Spoke with patient on the phone. Patient stated that he isnt feeling well. Patient stated that he is aware of his upcoming appointments. Patient stated that he was able to get his medicine picked up from the pharmacy. Patient stated that he has no concerns or questions at this time. Carrol Mills
== END 2025-01-08 15:31 | disposition home or self-care (01) ==
LOC: ER 10:53 → ICU 11:17
PROVIDERS: Internal Medicine Pulmonary Disease; Admitting Provider Student in an Organized Health Care Education/Training Program; Emergency Provider Student in an Organized Health Care Education/Training Program; PCP Nurse Practitioner Family; Visit Provider Student in an Organized Health Care Education/Training Program
DX: J18.9 Pneumonia, unspecified organism (principal); J96.22 Acute and chronic respiratory failure with hypercapnia; I48.91 Unspecified atrial fibrillation; N40.0 Benign prostatic hyperplasia without lower urinary tract symptoms; K21.9 Gastro-esophageal reflux disease without esophagitis; I10 Essential (primary) hypertension; F17.210 Nicotine dependence, cigarettes, uncomplicated; J96.11 Chronic respiratory failure with hypoxia; J44.1 Chronic obstructive pulmonary disease with (acute) exacerbation; J43.9 Emphysema, unspecified; K29.70 Gastritis, unspecified, without bleeding; G25.0 Essential tremor; R56.9 Unspecified convulsions; R60.0 Localized edema; Z83.6 Family history of other diseases of the respiratory system; Z87.438 Personal history of other diseases of male genital organs; Z99.89 Dependence on other enabling machines and devices; Z79.01 Long term (current) use of anticoagulants; Z79.51 Long term (current) use of inhaled steroids; Z79.899 Other long term (current) drug therapy; Z82.49 Family history of ischemic heart disease and other diseases of the circulatory system; R94.31 Abnormal electrocardiogram [ECG] [EKG]
CPT/HCPCS: 0223U; 36415; 36600; 71045; 71275; 80053; 82803; 82962; 83605; 83690; 83735; 83880; 84145; 84484; 85025; 85610; 85730; 86140; 87040; 87070; 87205; 87641; 93005; 94640; 94761; 96365; 96367; 96372; 96375; 96376; 97162; 97166; 99285; G0378; J0456; J0696; J1650; J2470; J2543; J2919; J3475; J7030; J7050; Q9967

== ENCOUNTER 2025-01-23 12:16 | Observation (INO) | payer OTHER, MEDICARE, SELFPAY ==
--- OUTSIDE RECORDS SUMMARY | 2024-06-06 16:30 | XMS_ITS ---
Author Organization [facility] Address [address] [place] [address] Care Team Providers Care Retail Loan Originator Name Role Phone Maribeth Mclean Primary Care Provider MARIBETH MCLEAN Unavailable Unavaila ble Migration, Provider Unavailable Unavailable REAS[facility] FOR VISIT [facility] Encounter Medications Medication SIG (Take, Route, Frequency, Duration) Notes Start Date End Date Status Rosuvastatin Calcium 20 MG 1/2 tab orally at bedtime Active Finasteride 5 MG 1 tab(s) orally once a day Active Breztri Aerosphere 160 MCG-4.8 MCG-9 MCG/INH 2 PUFF(S) INHALED 2 TIMES A DAY *Please review and pick correct strength-formulati [facility] options. If intended option is not shown, discontinue and re-order from Quick Search* Active Amoxicillin-Pot Clavulanate 875-125 MG 1 tab(s) orally every 12 hours Active Furosemide 20 MG 1 tab(s) orally once a day as needed for swelling; Duration: 30 days Active Famotidine 40 MG 1 tab(s) orally once a day (at bedtime); Duration: 90 days Active Pantoprazole Sodium 40 MG 1 tab(s) orally once a day; Duration: 90 days Active Ondansetron HCl 4 MG 1 tab(s) orally every 8 hours as needed for nausea; Duration: 10 days Active Ohtuvayre 3 MG/2.5ML as directed by nebulizer 2 times a day Active Tamsulosin HCl 0.4 MG 1 cap(s) orally 2 times a day; Duration: 90 days Active Eliquis 5 MG as directed orally 2 times a day Active Combivent Respimat 20-100 MCG/ACT 1 INH inhaled 4 times a day as needed for COPD; Duration: 30 days Active Metoprolol Succinate ER 50 MG 1 tab(s) orally once a day for hypertension and a. fib; Duration: 90 days Active Magnesium Oxide 420 MG 2 tabs orally once a day Active Albuterol Sulfate HFA 108 (90 Base) MCG/ACT 2 puff(s) inhaled every 6 hours PRN; Duration: 30 days Active predniSONE 10 MG 1-2 tabs orally once a day; Duration: 30 days Active Primidone 50 MG 1 tab(s) orally once a day for tremor; Duration: 90 days Active Encounters Encounter Location Date Provider Diagnosis [facility] [address] [place], [place] [address] 06/06/2024 Provider Migration Paroxysmal atrial fibrillation I48.0 ; Tremor R25.1 ; COPD exacerbation J44.1 ; Dyspepsia R10.13 and Peripheral edema R60.0 Assessments Encounter Date Diagnosis (ICD Code) Assessment Notes Treatment Notes Treatment Clinical Notes Section Notes 06/06/2024 Paroxysmal atrial fibrillation (ICD-10 - I48.0) 06/06/2024 Tremor (ICD-10 - R25.1) 06/06/2024 COPD exacerbation (ICD-10 - J44.1) 06/06/2024 Dyspepsia (ICD-10 - R10.13) 06/06/2024 Peripheral edema (ICD-10 - R60.0) Plan Of Treatment Medication Medication Name Sig Start Date Stop Date Notes Furosemide 20 MG 1 tab(s) orally once a day as needed for swelling; Duration: 30 days Famotidine 40 MG 1 tab(s) orally once a day (at bedtime); Duration: 90 days Pantoprazole Sodium 40 MG 1 tab(s) orall y once a day; Duration: 90 days Ondansetron HCl 4 MG 1 tab(s) orally leyda ry 8 hours as needed for nausea; Duration: 10 days Tamsulosin HCl 0.4 MG 1 cap(s) orally 2 times a day; Duration: 90 days Combivent Respimat 20-100 MCG/ACT 1 INH inhaled 4 times a day as needed for COPD; Duration: 30 days Metoprolol Succinate ER 50 MG 1 tab(s) o rally once a day for hypertension and a. fib; Duration: 90 days predniSONE 10 MG 1-2 tabs orally once a day; Duration: 30 days Primidone 50 MG 1 tab(s) orally once a day for tremor; Duration: 90 days Progress Notes * Carroll GARCIADOB:1945 (79 yo M)Acc No.[id number]:06/06/2024 Patient: Carroll KEMP Provider: Reed reddy Migration :1945 A ge:79 Y S ex:Male Date:06/06/2024 Address:[address], [facility], [id number] Pcp:Maribeth Mclean Subjective: * Chief Complaints: * [facility] . [facility]. * Medical History: * Medications: T aking Ohtuvayre 3 MG/2.5ML Suspension as directed by nebulizer 2 times a day , Taking Amoxicillin-Pot Clavulanate 875-125 MG Tablet 1 tab(s) orally every 12 hours , Taking Breztri Aerosphere 160 MCG-4.8 MCG-9 MCG/INH AEROSOL 2 PUFF(S) INHALED 2 TIMES A DAY , Notes to Pharmacist: *Please review and pick correct strength-formulation from [facility] options. If intended option is not shown, discontinue and re-order from Quick Search*, Taking Finasteride 5 MG Tablet 1 tab(s) orally once a day , Taking Rosuvastatin Calcium 20 MG Tablet 1/2 tab orally at bedtime , Taking Magnesium Oxide 420 MG Tablet 2 tabs orally once a day , Taking Eliquis 5 MG Tablet as directed orally 2 times a day , Taking Albuterol Sulfate HFA 108 (90 Base) MCG/ACT Aerosol Solution 2 puff(s) inhaled every 6 hours PRN Objective: * Vitals: Assessment: * Assessment: 1. P aroxysmal atrial fibrillation - I48.0 2 . T remor - R25.1 ?3. C OPD exacerbation - J44.1 4 . D yspepsia - R10.13 5 . P eripheral edema - R60.0 Plan: * Treatment: 2. T remor Start Primidone Tablet, 50 MG, 1 tab(s), orally, once a day for tremor, 90 days, 90, Refills 0.? 3. C OPD exacerbation Start Combivent Respimat Aerosol Solution, 20-100 MCG/ACT, 1 INH, inhaled, 4 times a day as needed for COPD, 30 days, 1, Refills 2. 4. D yspepsia Start Famotidine Tablet, 40 MG, 1 tab(s), orally, once a day (at bedtime), 90 days, 90, Refills 1.? 5. P eripheral edema Start Furosemide Tablet, 20 MG, 1 tab(s), orally, once a day as needed for swelling, 30 days, 30, Refills 3. 6. O thers Refill Tamsulosin HCl Capsule, 0.4 MG, 1 cap(s), orally, 2 times a day, 90 days, 180 Capsule, Refills 1; S tart Pantoprazole Sodium Tablet Delayed Release, 40 MG, 1 tab(s), orally, once a day, 90 days, 90, Refills 1; R efill Ondansetron HCl Tablet, 4 MG, 1 tab(s), orally, every 8 hours as needed for nausea, 10 days, 30, Refills 1; R efill predniSONE Tablet, 10 MG, 1-2 tabs, orally, once a day, 30 days, 60, Refills 2. * * Electronic signature of Prov ider Migration on 01/23/2025 at 12:29 PM EST Sign off status: Pending * Provider: Reed reddy Migration Date: 0 06/06/2024 Generated for Ness thornton/Barrera/Pablo on: 03/25/2024 12:29 PM EST
--- OUTSIDE RECORDS SUMMARY | 2024-12-29 09:00 | XMS_ITS ---
Author Organization [facility] Address [address] [place] [address] Care Team Providers Care Numerical Tool Programmer Name Role Phone Jodi Mclean Primary Care [...] review and pick correct strength-formulat ion from [employer] options. 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 Hospital f/u. * HPI: I ntrim History: 79-year-old male seen today in his home for hospital follow-up. He was admitted to [facility] with acute onset respiratory failure, overlying [...] Diagno stic Procedure: H MH JULY 2023, [facility] - COPD exacerbation July 2024, [facility] - COPD exacerbation Dec 2024. * Family [...] occasion. Living Will: Yes, on file at [facility]. Alcohol: socially, rarely occasional weekend. Occupation: retired. [...] *Please review and pick correct strength-formulation from [employer] options. If intended option is not shown, [...] Cuevas Date: Generated for Ness thornton/Barrera/Pablo on: 03/25/2024 12:29 PM EST History and Physical Notes * HPI [...]
--- OUTSIDE RECORDS SUMMARY | 2025-01-11 07:45 | XMS_ITS ---
Author Organization [facility] Address [address] [place] [address] Care Team Providers Care Ironing Machine Operator Name Role Phone Maribeth Mclean Primary Care Provider MARIBETH MCLEAN Unavailable Unavaila ble REASON FOR VISIT hospital follow up Encounters Encounter Location Date Provider Diagnosis [facility] [address] [place], [place] [address] 01/11/2025 Maribeth Mclean Plan Of Treatment No Information Progress Notes * Carroll GARCIADOB:1945 (79 yo M)Acc No.[id number]:01/11/2025 HOSP F/U Patient: Carroll KEMP Provider: DEBORAH Cuevas :1945 A ge:79 Y S ex:Male Date:01/11/2025 Address:[address], [place], [id number] Subjective: * Chief Complaints: * 1 . Hospital follow up. * Medical History: Objective: * Vitals: Assessment: Plan: * Treatment: * * Electronic signature of Grace Mclean APRN on 01/23/2025 at 12:29 PM EST Sign off status: Pending * Provider: DEBORAH Cuevas Date: 03/13/2024 Generated for Milai ng/Fatoddg/eTransmitting on: 03/25/2024 12:29 PM EST
--- OUTSIDE RECORDS SUMMARY | 2025-01-19 08:00 | XMS_ITS ---
Author Organization [facility] Address [address] [place] [address] Care Team Providers Care Map Mounter Name Role Phone Maribeth Mclean Primary Care Provider MARIBETH MCLEAN Unavailable Unavaila ble REASON FOR VISIT hospital f/u Medications Medication SIG (Take, Route, Frequency, Duration) Notes Start Date End Date Status Combivent Respimat 20-100 MCG/ACT INHALE 1 PUFF 4 TIMES A DAY FOR COPD; Duration: 30 Active Fluconazole 200 MG 1 tablet Orally daily; Duration: 7 days 01/11/2025 Active Primidone 50 mg TAKE ONE TABLET BY MOUTH ONCE A DAY FOR TREMOR; Duration: 30 Active Levocetirizine Dihydrochloride 5 mg TAKE 1 TABLET BY MOUTH every evening; Duration: 30 Active Mupirocin 2 % 1 application Externally Twice a day; Duration: 5 days 01/19/2025 Active Famotidine 40 mg TAKE ONE TABLET BY MOUTH AT BEDTIME; Duration: 30 Active Pantoprazole Sodium 40 mg TAKE ONE TABLET BY MOUTH ONCE A DAY; Duration: 30 Active predniSONE 10 mg TAKE 1 TO 2 TABLETS BY MOUTH ONCE DAILY FOR 30 DAYS; Duration: 30 Active Albuterol Sulfate HFA 108 (90 Base) MCG/ACT INHALE 2 PUFFS BY MOUTH EVERY 6 HOURS NEEDED FOR SHORTNESS OF BREATH; Duration: 16 Active Metoprolol Succinate ER 50 mg TAKE ONE TABLET BY MOUTH ONCE A DAY FOR HYPERTENSION AND A. FIB; Duration: 30 Active Eliquis 5 MG as directed orally 2 times a day Active Tamsulosin HCl 0.4 MG 1 cap(s) orally 2 times a day; Duration: 90 days Active Furosemide 20 MG 1 tab(s) orally once a day as needed for swelling; Duration: 30 days Active Ondansetron HCl 4 mg TAKE ONE TABLET BY MOUTH EVERY 8 HOURS NEEDED FOR NAUSEA; Duration: 10 Active Breztri Aerosphere 160 MCG-4.8 MCG-9 MCG/INH 2 PUFF(S) INHALED 2 TIMES A DAY; Duration: 28 days *Please review and pick correct strength-formulat ion from [employer] options. If intended option is not shown, discontinue and re-order from Quick Search* Active Finasteride 5 MG 1 tab(s) orally once a day Active Rosuvastatin Calcium 20 MG 1/2 tab orally at bedtime Active Magnesium Oxide 420 MG 2 tabs orally onc e a day Active Encounters Encounter Location Date Provider Diagnosis [facility] [address] [place] [address] 01/19/2025 Maribeth Mclean Cellulitis of toe of right foot L03.031 Assessments Encounter Date Diagnosis (ICD Code) Assessment Notes Treatment Notes Treatment Clinical Notes Section Notes 01/19/2025 Cellulitis of toe of right foot (ICD-10 - L03.031) Plan Of Treatment Medication Medication Name Sig Start Date Stop Date Notes Mupirocin 2 % 1 application Truss Builder ally Twice a day; Duration: 5 days 01/19/2025 Progress Notes * Carroll GARCIADOB:1945 (79 yo M)Acc No.[id number]:01/19/2025 Home Visit 3 Patient: Carroll KEMP Provider: DEBORAH Cuevas :1945 A ge:79 Y S ex:Male Date:01/19/2025 Address:[address], [facility], [id number] Subjective: * Chief Complaints: * 1 . Hospital f/u. * Medical History: * Medications: T aking Finasteride 5 MG [...] *Please review and pick [facility]. If intended option is not [...] BY MOUTH ONCE A DAY , Taking predniSONE 10 mg Tablet TAKE 1 TO 2 TABLETS BY MOUTH ONCE DAILY FOR 30 DAYS , Taking Albuterol Sulfate HFA 108 (90 Base) MCG/ACT Aerosol Solution INHALE 2 PUFFS BY MOUTH EVERY 6 HOURS NEEDED FOR SHORTNESS OF BREATH , Taking Combivent Respimat 20-100 MCG/ACT Aerosol Solution INHALE 1 PUFF 4 TIMES A DAY FOR COPD , Taking Fluconazole 200 MG Tablet 1 tablet Orally daily , Taking Primidone 50 mg Tablet TAKE ONE TABLET BY MOUTH ONCE A DAY FOR TREMOR , Taking Levocetirizine Dihydrochloride 5 mg Tablet TAKE 1 TABLET BY MOUTH every evening Objective: * Vitals: Assessment: * Assessment: 1. C ellulitis of toe of right foot - L03.031 (Primary) Plan: * Treatment: * * Electronic signature of Grace Mclean APRN on 01/23/2025 at 12:29 PM EST Sign off status: Pending * Provider: DEBORAH Cuevas Date: 03/21/2024 Generated for Ness thornton/Barrera/Pablo on: 03/25/2024 12:29 PM EST
[2025-01-23] VITALS (19 sets, daily range): BP systolic 106–134; BP diastolic 62–82; PULSE 78–104; RESP 20–32; TEMP 36.4–36.6; O2SAT 93–100; BMI 18.3; BMI 19.2
--- NOTE | 2025-01-23 12:24 | XR_ITS ---
PROCEDURE INFORMATION: Exam: XR Chest Exam date and time: 01/23/2025 12:32 PM Age: 79 years old Clinical indication: Shortness of breath; Additional info: Cp SOA TECHNIQUE: Imaging protocol: Radiologic exam of the chest. Views: 1 view. Total images: 1 COMPARISON: CT ANGIO CHEST PE PROTOCOL 01/07/2025 9:40 AM FINDINGS: Lungs: Emphysematous changes noted bilaterally with bullae formation. Bilateral hyperinflation is present. Pleural spaces: No pleural effusion. No pneumothorax. Heart/Mediastinum: The heart is not enlarged. Vasculature: Tortuosity of the thoracic aorta. Mild atherosclerotic disease. Bones/joints: Rightward curvature of the thoracic spine with mild degenerative changes. Old bilateral rib fractures noted. Mild compression deformity of T8. IMPRESSION: 1. Bolus emphysematous changes present. 2. Bilateral hyperinflation is present.
--- NOTE | 2025-01-23 12:26 | ED_ITS ---
<Statement entered by Damon Freeman MD - 01/23/25 19:54> I was consulted by the GLADIS, and we discussed the complexity of the problems being addressed. I approve the treatment and management plan for this patient's care in the emergency department, thus performing a substantive portion of the medical decision making. Damon Freeman MD Discharge Plan Disposition Chief Complaint: Shortness of Breath/Dyspnea Clinical Impressions Clinical Impression: Hypercapnic respiratory failure Discharge ED Provider: Damon Freeman HPI <Ludy Clay, F[employer] TESTER - Last Filed: 01/23/25 16:06> General Chief Complaint: Shortness of Breath/Dyspnea Stated Complaint: soa Time Seen by Provider: 01/23/25 12:20 History of Present Illness HPI narrative: patient is a 79-year-old male PMHx COPD on oxygen at baseline, history of respiratory failure, history of tobacco use, A-fib on anticoagulation who presents to the ED for complaints of shortness of breath. Patient states he has been progressively short of breath and having a productive cough for 1 week. Patient was recently admitted to the ICU for respiratory failure. Patient states he is having chest pain, worse with cough. He reports he was recently started on Lasix however is having difficulty with lower extremity edema. Related Data Home Medications ?Medication ?Instructions ?Recorded ?Confirmed apixaban 5 mg tablet 5 mg PO BID 07/24/22 5 budesonide 160 mcg-glycopyr 9 2 puff inhalation BID 01/07/25 mcg-formot 4.8 mcg/actuation HFA inhaler (Breztri Aerosphere) famotidine 40 mg tablet 40 mg PO HS 07/20/24 5 furosemide 20 mg tablet 20 mg PO DAILYP PRN fluid re tention 07/20/24 01/07/25 ipratropium 20 mcg-albuterol 100 1 puff inhalation QID 07/20/24 01/07/25 mcg/actuation mist for inhalation (Combivent Respimat) metoprolol succinate 50 mg 50 mg PO DAILY 07/20/2408/26 tablet,extended release 24 hr primidone 50 mg tablet 50 mg PO DAILY 07/20/2408/26 prednisone 10 mg tablet 10 mg PO DAILY 01/07/2508/26 Held on 01/08/25. Instructions: Resume on 01/12/25. Previous Rx's ?Medication ?Instructions ?Recorded albuterol sulfate 90 mcg/actuation 2 puff inhalation Q 4HP PRN 07/29/23 aerosol inhaler Shortness Of Breath 30 days #8.5 grams pantoprazole 40 mg tablet,delayed 40 mg PO DAILY 30 da ys #30 tabs 07/29/23 release irbesartan 75 mg tablet 75 mg PO HS 30 days #30 tabs 12/22/24 tamsulosin 0.4 mg capsule 0.8 mg (2 x 0.4 mg) PO HS 30 days 12/22/24 #60 caps fluticasone propionate 50 1 spray intranasal BID #16 g yash 12/23/24 mcg/actuation nasal spray,suspension oxymetazoline 0.05 % nasal spray 1 spray intranasal BI DP PRN 12/23/24 (Afrin (oxymetazoline)) CONGESTION #22 mL ipratropium 0.5 mg-albuterol 3 mg 3 ml inhalation Q4RT PRN shortness 01/08/25 (2.5 mg base)/3 mL nebulization of breath or wheezing #90 mL soln levofloxacin 750 mg tablet 750 mg PO DAILY 5 days #5 t abs 01/08/25 prednisone 20 mg tablet 40 mg (2 x 20 mg) PO DAILY 3 days 01/08/25 #6 tabs Allergies Allergy/AdvReac Type Severity Reaction Status Date / Time No Known Allergies Allergy Verified 08/05/24 12:54 [facility] <Ludy Clay APRN - Last Filed: 01/23/25 16:06> [facility] Disclaimer: The information contained in this section may have been updated after the patient was seen, as this information can be updated by other users. Medical History Encounter for screening for malignant neoplasm of lung Alcohol withdrawal seizure Anemia Multiple lung nodules on CT COPD mixed type Smoking greater than 30 pack years Pulmonary emphysema Appendicitis History of prostate disorder GERD (gastroesophageal reflux disease) Hypertension Afib COPD (chronic obstructive pulmonary disease) Surgical History H/O foot surgery History of appendectomy Family History Other Family history of COPD (chronic obstructive pulmonary disease) Family history of hyperlipidemia Family history of hypertension Family history of myocardial infarction Social History Smoking Status: Current every day smoker tobacco type: cigarettes packs per day: 1 pack-years: 63 alcohol intake: former substance use type: denies use current occupational status: retired Travel in the last 8 weeks?: None Have you lived/traveled outside [place] in past 30 days?: No Contact w/someone who lives/traveled outside [place] past 30 days?: No Exposure to someone with infectious disease in past 14 days?: No Do you have a fever (greater than 100.4 F or 38 C)?: No Have you tested positive for COVID-19?: No Exposed to someone with COVID-19 in past 14 days?: No Do you have a sore throat?: No Do you have a cough?: No Do you have any weakness?: No Do you have any diarrhea?: No Are you experiencing any unusual bleeding?: No Do you have any muscle aches/pain?: No Do you have any abdominal pain?: No Are you experiencing loss of taste or smell?: No Other Medical History Have you received the Flu Vaccine for this season: No Have you received the Pneumonia Vaccine: No <Ludy Clay APRN - Last Filed: 01/23/25 16:06> ROS Obtained: Yes Systems reviewed as appropriate & no additional complaints except as documented Physical Exam <Ludy Clay APRN - Last Filed: 01/23/25 16:06> General General appearance: alert Head Head exam: normocephalic Eye Eye exam: Present PERRL Neck Neck exam: Present full ROM Respiratory Respiratory exam: Present respiratory distress, wheezes, accessory muscle use and other (Tachypnea) Cardiovascular Cardiovascular exam: Present regular rate Abdominal Exam Abdominal exam: Absent tenderness Neurological Exam Neurological exam: Present alert and oriented X3 Skin Skin exam: Present dry HEART Score <Ludy Clay APRN - Last Filed: 01/23/25 16:06> HEART Score HEART Score assessment performed?: Yes History (anamnesis): Moderately suspicious ECG: Non-specific disturbance Age: >65 years Risk factors: 1-2 risk factors Troponin: </= normal limit HEART Score: 5 Procedures <Damon Freeman MD - Last Filed: 01/23/25 12:47> Limited Ultrasound Indication:: Limited cardiac ultrasound Indication: Chest pain, shortness of breath Identified cardiac views: -Cardiac parasternal long axis -Cardiac parasternal short axis -Cardiac apical four-chamber -Cardiac subxiphoid Findings: -Cardiac activity present -Wall motion grossly normal -Pericardial effusion absent -Right heart strain absent Impression: - From above Images were saved to permanent archive The study was technically adequate CPT: 57579 This study was performed by Damon heard MD, and I personally interpreted all images/videos. Based on my clinical judgement, these images were adequate and did not necessitate further imaging. Limited lung ultrasound A focused ultrasound exam of the pleural spaces was performed to evaluate for pneumothorax, pulmonary edema, pleural effusion and/or consolidation. The ultrasound was performed with the following indications, as noted in the H&P: -Dyspnea -Chest pain Identified structures: RIGHT and/or LEFT thoracic cavities were examined. Findings: Lung sliding: - Left present - Right present B-lines: - Left absent - Right absent Pleural effusion: - Left absent - Right absent Consolidation: - Left absent - Right absent Impression: - Pneumothorax absent - Pleural effusion absent - B-lines absent - Consolidation absent Images were saved to permanent archive The study was technically adequate CPT 86296-26 This study was performed by Damon heard MD, and I personally interpreted all images/videos. Based on my clinical judgement, these images were adequate and did not necessitate further imaging. Critical Care <Ludy Clay APRN - Last Filed: 01/23/25 16:06> Critical Care Time Critical Care Time: No Medical Decision Making <Ludy Clay APRN - Last Filed: 01/23/25 16:06> [place] Inquiry Pt receiving controlled substance: No Vital Signs Vital Signs: 01/23/25 12:22 01/23/25 12:30 01/23/25 12:44 Temperature 97.5 F L Temperature Source Oral Pulse Rate 104 H 103 H Pulse Rate [Right] 104 H Respiratory Rate 21 32 H Blood Pressure 126/68 132/82 Blood Pressure [Right Arm] 126/68 Blood Pressure Mean Blood Pressure Mean [Right Arm] 87 Blood Pressure Source Blood Pressure Source [Right Arm] Automatic Cuff Blood Pressure Position Blood Pressure Position [Right Arm] Supine 02 Sat by Pulse Oximetry 97 99 97 Oxygen Delivery Method Nasal Cannula Nasal Cannula Nasal Cannula Oxygen Flow Rate (LPM) 2.5 2.5 2.5 Fraction of Inspired Oxygen 01/23/25 12:44 01/23/25 12:45 01/23/25 12:50 Temperature 97.5 F L Temperature Source Oral Pulse Rate 104 H 95 H Pulse Rate [Right] Respiratory Rate 32 H 28 H Blood Pressure 126/68 Blood Pressure [Right Arm] Blood Pressure Mean Blood Pressure Mean [Right Arm] Blood Pressure Source Automatic Cuff Blood Pressure Source [Right Arm] Blood Pressure Position Supine Blood Pressure Position [Right Arm] 02 Sat by Pulse Oximetry 97 99 Oxygen Delivery Method Nasal Cannula Nasal Cannula Oxygen Flow Rate (LPM) 2.5 2.5 Fraction of Inspired Oxygen 35 01/23/25 13:00 01/23/25 13:00 01/23/25 13:30 Temperature Temperature Source Pulse Rate 101 H 99 H Pulse Rate [Right] Respiratory Rate 25 H 21 Blood Pressure 122/70 132/62 Blood Pressure [Right Arm] Blood Pressure Mean 87 Blood Pressure Mean [Right Arm] Blood Pressure Source Blood Pressure Source [Right Arm] Blood Pressure Position Blood Pressure Position [Right Arm] 02 Sat by Pulse Oximetry 96 100 100 Oxygen Delivery Method Nasal Cannula BiPAP BiPAP Oxygen Flow Rate (LPM) 2.5 Fraction of Inspired Oxygen 01/23/25 14:00 01/23/25 14:30 01/23/25 15:00 Temperature Temperature Source Pulse Rate 92 H 94 H 101 H Pulse Rate [Right] Respiratory Rate 22 24 23 Blood Pressure 124/66 134/72 Blood Pressure [Right Arm] Blood Pressure Mean Blood Pressure Mean [Right Arm] Blood Pressure Source Blood Pressure Source [Right Arm] Blood Pressure Position Blood Pressure Position [Right Arm] 02 Sat by Pulse Oximetry 98 99 96 Oxygen Delivery Method BiPAP BiPAP BiPAP Oxygen Flow Rate (LPM) 2.5 Fraction of Inspired Oxygen 01/23/25 15:30 Temperature Temperature Source Pulse Rate 81 Pulse Rate [Right] Respiratory Rate 22 Blood Pressure 129/73 Blood Pressure [Right Arm] Blood Pressure Mean Blood Pressure Mean [Right Arm] Blood Pressure Source Blood Pressure Source [Right Arm] Blood Pressure Position Blood Pressure Position [Right Arm] 02 Sat by Pulse Oximetry 98 Oxygen Delivery Method BiPAP Oxygen Flow Rate (LPM) Fraction of Inspired Oxygen Lab Data Labs: Lab Results 01/23/25 12:24: VBG pH 7.26 L, VBG pCO2 73.6 H, VBG pO2 29.2, VBG HCO3 32.3 H, V BG Total CO2 34.5 H, VBG O2 Saturation 49.5 L, VBG Base Excess 5.2 H, VBG Lactic Acid 2.7 H 01/23/25 12:30: WBC 10.1, RBC 4.08 L, Hgb 12.5 L, Hct 39.3 L, MCV 96.3 H, MCH 30.6, MCHC 31.8, RDW 14.1, Plt Count 264, MPV 9.5, Neut % (Auto) 91.8 H, Lymph % (Auto) 4.2 L, Becker % (Auto) 2.9, Eos % (Auto) 0.1, Baso % (Auto) 0.2, Neut # (Auto) 9.3 H, Lymph # (Auto) 0.4 L, Becker # (Auto) 0.3, Eos # (Auto) 0.0, Baso # (Auto) 0.0, Total Counted 100, Neutrophils % (Manual) 90 H, Lymphocytes % (Manual) 6 L, Monocytes % (Manual) 3, Basophils % (Manual) 1.0, Platelet Estimate Normal, RBC Morphology Normal, PT 11.4, INR 1.03, APTT 26.5, D-Dimer 0.87 H, Sodium 134 L, Potassium 4.3, Chloride 96 L, Carbon Dioxide 33 H, Anion Gap 9.3, BUN 21 H, Creatinine 0.90, Estimated Creat Clear 51, Estimated GFR 82, Est GFR ( Amer) 99, Glucose 124 H, Calcium 9.7, Total Bilirubin 0.8, AST 24, ALT 22, Alkaline Phosphatase 89, Troponin I < 0.01, NT-Pro-B Natriuret Pep 342, Total Protein 7.5 D, Albumin 4.3, Globulin 3.2, Albumin/Globulin Ratio 1.3, Plasma/Serum Alcohol < 10, HCV Ab EFRAIN w/Rflx PCR Qn Negative, HIV Ag/Ab Combo Qual Negative 01/23/25 13:10: Urine Color Yellow, Urine Appearance Clear, Urine pH 7.0, Ur Specific Wilson 1.010, Urine Protein Negative, Urine Glucose (UA) Negative, Urine Ketones Negative, Urine Blood Negative, Urine Nitrate Negative, Urine Bilirubin Negative, Urine Urobilinogen 0.2, Ur Leukocyte Esterase Negative 01/23/25 13:12: Urine Opiates Screen Negative, Urine Methadone Screen Negative, Ur Barbituates Screen Negative, Ur Phencyclidine Scrn Negative, Ur Amphetamines Screen Negative, U Benzodiazepines Scrn Negative, Urine Cocaine Screen Negative, U Marijuana (THC) Screen Negative 01/23/25 14:20: Specimen Source Right radial, O2 % Bipap 14/6 35%, ABG pH 7.43, ABG pCO2 46.2 H, ABG pO2 128.1 H, ABG HCO3 30.3 H, ABG Total CO2 31.7 H, ABG O2 Saturation 99, ABG Base Excess 6.0 H, Robbie Test Acceptable, Vent Rate 20 01/23/25 12:30 01/23/25 12:30 Response Orders (Tests/Meds): ED MEDICATIONS Discontinued Medications Generic Name Dose Route Start Last Admin Trade Name Freq PRN Reason Stop Dose Admin Albuterol/Ipratropium 9 ml 01/23/25 12:39 01/23/25 13:11 Ipratropium/Albuterol 3 Ml Neb IH 01/23/25 12:40 9 ml ONCE ONE Administration Furosemide 40 mg 01/23/25 12:28 01/23/25 12:34 Furosemide 40mg/4ml Vial IV 01/23/25 12:29 40 mg ONCE ONE Administration Magnesium Sulfate 2 gm in 50 mls @ 50 mls/hr 01/23/25 12:40 01/23/25 14:19 Magnesium Sulfate 2gm/50ml Premix IV 01/23/25 13:39 Infused ONCE ONE Infusion Methylprednisolone Sodium Succinate 125 mg 01/23/25 12:40 01/23/25 13:10 Methylprednisolone Sod Succ 125mg Vial IV 01/23/25 12:41 125 mg ONCE ONE Administration ORDERS Category Date Time Status CXR --portable [XR chest portable] Stat Exams 01/23/25 12:24 Completed POCUS Point of Care (ER Only) Stat Exams 01/23/25 12:24 Completed BNP [NT Pro Brain Natriuretic Pep.] Stat Lab 01/23/25 12:30 Completed Blood alcohol [Ethyl Alcohol] Stat Lab 01/23/25 12:30 Completed CBC w/Auto Diff [Complete Blood Count Auto Diff] Stat Lab 01/23/25 12:30 Completed CMP [Comprehensive Metabolic Panel] Stat Lab 01/23/25 12:30 Completed D-Dimer Stat Lab 01/23/25 12:30 Completed HIV Combo Stat Lab 01/23/25 12:30 Completed Hepatitis C Ab Qual. W/ RFX Stat Lab 01/23/25 12:30 Completed PT/PTT Stat Lab 01/23/25 12:30 Completed Trop I [Troponin I] Stat Lab 01/23/25 12:30 Completed Troponin I Q3H Lab 01/23/25 15:30 Ordered Troponin I Q3H Lab 01/23/25 18:30 Ordered UDS [Drug Screen,Urine] Stat Lab 01/23/25 13:12 Completed Urinalysis and Microscopic Stat Lab 01/23/25 13:10 Results Blood Culture Stat Micro 01/23/25 12:48 Received ABG [Arterial Blood Gas] Stat RT 01/23/25 14:20 Results VBG [Venous Blood Gas] Stat RT 01/23/25 12:24 Completed MDM Narrative Medical Decision Narrative: In summary, patient is a 79-year-old male PMHx COPD on oxygen at baseline, history of respiratory failure, history of tobacco use, A-fib on anticoagulation who presents to the ED for complaints of shortness of breath x 2-3 days. Patient states he has been progressively short of breath and having a productive cough for 1 week. Patient was recently admitted to the ICU for respiratory failure. Patient states he is having chest pain, worse with cough. He reports he was recently started on Lasix however is having difficulty with lower extremity edema. He does wear a BiPAP at home, however has difficulty wearing the BiPAP at night, states he has not been able to sleep in 2 nights due to his shortness of breath. Upon initial evaluation patient has alert, oriented, he is tachypneic, tachycardic, physical exam is remarkable for decreased lung sounds, shallow breathing, bilateral lower extremity 2+ pitting edema. He is speaking in short sentences with obvious labored breathing. Differential diagnoses include sepsis, flash pulmonary edema, ACS, dissection, pneumonia, pneumothorax, among others. Discussed with patient we will proceed with cardiac [id number] ultrasound, labs. Attending performed POCUS, see his note. VBG reviewed, pH 7.26, CO2 73.6, lactic acid 2.7. Will place patient on BiPAP. Chest x-ray remarkable for bullous emphysematous changes and bilateral hyperinflation present. Contacted hospital medicine who request that we wait 1 hour and repeat ABG after patient is been on BiPAP. CBC unremarkable for any leukocytosis, stable H&H. D-dimer 0.87. CMP remarkable for sodium 134, troponin < 0.01. BNP 342. Urinalysis unremarkable for any infectious process. Upon reassessment, patient's work of breathing has mildly improved. He states he does not feel as though he can be discharged home. Repeat ABG shows improvement in CO2 however patient admitted for hypercapnic respiratory failure, continued need for BiPAP. <Damon Freeman MD - Last Filed: 01/23/25 12:47> Vital Signs Vital Signs: 01/23/25 12:22 01/23/25 12:30 01/23/25 12:44 Temperature 97.5 F L Temperature Source Oral Pulse Rate 104 H 103 H Pulse Rate [Right] 104 H Respiratory Rate 21 32 H Blood Pressure 126/68 132/82 Blood Pressure [Right Arm] 126/68 Blood Pressure Mean Blood Pressure Mean [Right Arm] 87 Blood Pressure Source Blood Pressure Source [Right Arm] Automatic Cuff Blood Pressure Position Blood Pressure Position [Right Arm] Supine 02 Sat by Pulse Oximetry 97 99 97 Oxygen Delivery Method Nasal Cannula Nasal Cannula Nasal Cannula Oxygen Flow Rate (LPM) 2.5 2.5 2.5 Fraction of Inspired Oxygen 01/23/25 12:44 01/23/25 12:45 01/23/25 12:50 Temperature 97.5 F L Temperature Source Oral Pulse Rate 104 H 95 H Pulse Rate [Right] Respiratory Rate 32 H 28 H Blood Pressure 126/68 Blood Pressure [Right Arm] Blood Pressure Mean Blood Pressure Mean [Right Arm] Blood Pressure Source Automatic Cuff Blood Pressure Source [Right Arm] Blood Pressure Position Supine Blood Pressure Position [Right Arm] 02 Sat by Pulse Oximetry 97 99 Oxygen Delivery Method Nasal Cannula Nasal Cannula Oxygen Flow Rate (LPM) 2.5 2.5 Fraction of Inspired Oxygen 35 01/23/25 13:00 01/23/25 13:00 01/23/25 13:30 Temperature Temperature Source Pulse Rate 101 H 99 H Pulse Rate [Right] Respiratory Rate 25 H 21 Blood Pressure 122/70 132/62 Blood Pressure [Right Arm] Blood Pressure Mean 87 Blood Pressure Mean [Right Arm] Blood Pressure Source Blood Pressure Source [Right Arm] Blood Pressure Position Blood Pressure Position [Right Arm] 02 Sat by Pulse Oximetry 96 100 100 Oxygen Delivery Method Nasal Cannula BiPAP BiPAP Oxygen Flow Rate (LPM) 2.5 Fraction of Inspired Oxygen 01/23/25 14:00 01/23/25 14:30 01/23/25 15:00 Temperature Temperature Source Pulse Rate 92 H 94 H 101 H Pulse Rate [Right] Respiratory Rate 22 24 23 Blood Pressure 124/66 134/72 Blood Pressure [Right Arm] Blood Pressure Mean Blood Pressure Mean [Right Arm] Blood Pressure Source Blood Pressure Source [Right Arm] Blood Pressure Position Blood Pressure Position [Right Arm] 02 Sat by Pulse Oximetry 98 99 96 Oxygen Delivery Method BiPAP BiPAP BiPAP Oxygen Flow Rate (LPM) 2.5 Fraction of Inspired Oxygen 01/23/25 15:30 Temperature Temperature Source Pulse Rate 81 Pulse Rate [Right] Respiratory Rate 22 Blood Pressure 129/73 Blood Pressure [Right Arm] Blood Pressure Mean Blood Pressure Mean [Right Arm] Blood Pressure Source Blood Pressure Source [Right Arm] Blood Pressure Position Blood Pressure Position [Right Arm] 02 Sat by Pulse Oximetry 98 Oxygen Delivery Method BiPAP Oxygen Flow Rate (LPM) Fraction of Inspired Oxygen Lab Data Labs: Lab Results 01/23/25 12:24: VBG pH 7.26 L, VBG pCO2 73.6 H, VBG pO2 29.2, VBG HCO3 32.3 H, V BG Total CO2 34.5 H, VBG O2 Saturation 49.5 L, VBG Base Excess 5.2 H, VBG Lactic Acid 2.7 H 01/23/25 12:30: WBC 10.1, RBC 4.08 L, Hgb 12.5 L, Hct 39.3 L, MCV 96.3 H, MCH 30.6, MCHC 31.8, RDW 14.1, Plt Count 264, MPV 9.5, Neut % (Auto) 91.8 H, Lymph % (Auto) 4.2 L, Becker % (Auto) 2.9, Eos % (Auto) 0.1, Baso % (Auto) 0.2, Neut # (Auto) 9.3 H, Lymph # (Auto) 0.4 L, Becker # (Auto) 0.3, Eos # (Auto) 0.0, Baso # (Auto) 0.0, Total Counted 100, Neutrophils % (Manual) 90 H, Lymphocytes % (Manual) 6 L, Monocytes % (Manual) 3, Basophils % (Manual) 1.0, Platelet Estimate Normal, RBC Morphology Normal, PT 11.4, INR 1.03, APTT 26.5, D-Dimer 0.87 H, Sodium 134 L, Potassium 4.3, Chloride 96 L, Carbon Dioxide 33 H, Anion Gap 9.3, BUN 21 H, Creatinine 0.90, Estimated Creat Clear 51, Estimated GFR 82, Est GFR ( Amer) 99, Glucose 124 H, Calcium 9.7, Total Bilirubin 0.8, AST 24, ALT 22, Alkaline Phosphatase 89, Troponin I < 0.01, NT-Pro-B Natriuret Pep 342, Total Protein 7.5 D, Albumin 4.3, Globulin 3.2, Albumin/Globulin Ratio 1.3, Plasma/Serum Alcohol < 10, HCV Ab EFRAIN w/Rflx PCR Qn Negative, HIV Ag/Ab Combo Qual Negative 01/23/25 13:10: Urine Color Yellow, Urine Appearance Clear, Urine pH 7.0, Ur Specific Wilson 1.010, Urine Protein Negative, Urine Glucose (UA) Negative, Urine Ketones Negative, Urine Blood Negative, Urine Nitrate Negative, Urine Bilirubin Negative, Urine Urobilinogen 0.2, Ur Leukocyte Esterase Negative 01/23/25 13:12: Urine Opiates Screen Negative, Urine Methadone Screen Negative, Ur Barbituates Screen Negative, Ur Phencyclidine Scrn Negative, Ur Amphetamines Screen Negative, U Benzodiazepines Scrn Negative, Urine Cocaine Screen Negative, U Marijuana (THC) Screen Negative 01/23/25 14:20: Specimen Source Right radial, O2 % Bipap 14/6 35%, ABG pH 7.43, ABG pCO2 46.2 H, ABG pO2 128.1 H, ABG HCO3 30.3 H, ABG Total CO2 31.7 H, ABG O2 Saturation 99, ABG Base Excess 6.0 H, Robbie Test Acceptable, Vent Rate 20 Response Orders (Tests/Meds): ED MEDICATIONS Discontinued Medications Generic Name Dose Route Start Last Admin Trade Name Freq PRN Reason Stop Dose Admin Albuterol/Ipratropium 9 ml 01/23/25 12:39 01/23/25 13:11 Ipratropium/Albuterol 3 Ml Neb IH 01/23/25 12:40 9 ml ONCE ONE Administration Furosemide 40 mg 01/23/25 12:28 01/23/25 12:34 Furosemide 40mg/4ml Vial IV 01/23/25 12:29 40 mg ONCE ONE Administration Magnesium Sulfate 2 gm in 50 mls @ 50 mls/hr 01/23/25 12:40 01/23/25 14:19 Magnesium Sulfate 2gm/50ml Premix IV 01/23/25 13:39 Infused ONCE ONE Infusion Methylprednisolone Sodium Succinate 125 mg 01/23/25 12:40 01/23/25 13:10 Methylprednisolone Sod Succ 125mg Vial IV 01/23/25 12:41 125 mg ONCE ONE Administration ORDERS Category Date Time Status CXR --portable [XR chest portable] Stat Exams 01/23/25 12:24 Completed POCUS Point of Care (ER Only) Stat Exams 01/23/25 12:24 Completed BNP [NT Pro Brain Natriuretic Pep.] Stat Lab 01/23/25 12:30 Completed Blood alcohol [Ethyl Alcohol] Stat Lab 01/23/25 12:30 Completed CBC w/Auto Diff [Complete Blood Count Auto Diff] Stat Lab 01/23/25 12:30 Completed CMP [Comprehensive Metabolic Panel] Stat Lab 01/23/25 12:30 Completed D-Dimer Stat Lab 01/23/25 12:30 Completed HIV Combo Stat Lab 01/23/25 12:30 Completed Hepatitis C Ab Qual. W/ RFX Stat Lab 01/23/25 12:30 Completed PT/PTT Stat Lab 01/23/25 12:30 Completed Trop I [Troponin I] Stat Lab 01/23/25 12:30 Completed Troponin I Q3H Lab 01/23/25 15:30 Ordered Troponin I Q3H Lab 01/23/25 18:30 Ordered UDS [Drug Screen,Urine] Stat Lab 01/23/25 13:12 Completed Urinalysis and Microscopic Stat Lab 01/23/25 13:10 Results Blood Culture Stat Micro 01/23/25 12:48 Received ABG [Arterial Blood Gas] Stat RT 01/23/25 14:20 Results VBG [Venous Blood Gas] Stat RT 01/23/25 12:24 Completed
--- OUTSIDE RECORDS SUMMARY | 2025-01-23 12:29 | XMS_ITS | Patient Health Record ---
Author Organization [facility] Address [address] [place] [address] Care Team Providers Care County Demonstrator Name Role Phone Maribeth Mclean Primary Care Provider MARIBETH MCLEAN Unavailable Unavaila ble Migration, Provider Unavailable Unavailable Allergies No Known Allergies Reason For Referral No Information Medications Medication SIG (Take, Route, Frequency, Duration) Notes Start Date End Date Status Famotidine 40 mg TAKE ONE TABLET BY MOUTH AT BEDTIME; Duration: 30 Active Rosuvastatin Calcium 20 MG 1/2 tab orally at bedtime Active Albuterol Sulfate HFA 108 (90 Base) MCG/ACT INHALE 2 PUFFS BY MOUTH EVERY 6 HOURS NEEDED FOR SHORTNESS OF BREATH; Duration: 16 Active Magnesium Oxide 420 MG 2 tabs orally onc e a day Active Combivent Respimat 20-100 MCG/ACT INHALE 1 PUFF 4 TIMES A DAY FOR COPD; Duration: 30 Active Eliquis 5 MG as directed orally 2 times a day Active Fluconazole 200 MG 1 tablet Orally daily; Duration: 7 days 01/11/2025 Active Tamsulosin HCl 0.4 MG 1 cap(s) orally 2 times a day; Duration: 90 days Active Primidone 50 mg TAKE ONE TABLET BY MOUTH ONCE A DAY FOR TREMOR; Duration: 30 Active Furosemide 20 MG 1 tab(s) orally once a day as needed for swelling; Duration: 30 days Active Levocetirizine Dihydrochloride 5 mg TAKE 1 TABLET BY MOUTH every evening; Duration: 30 Active Mupirocin 2 % 1 application Externally Twice a day; Duration: 5 days 01/19/2025 Active Ondansetron HCl 4 mg TAKE ONE TABLET BY MOUTH EVERY 8 HOURS NEEDED FOR NAUSEA; Duration: 10 Active Breztri Aerosphere 160 MCG-4.8 MCG-9 MCG/INH 2 PUFF(S) INHALED 2 TIMES A DAY; Duration: 28 days *Please review and pick correct strength-formulat ion from [employer] options. If intended option is not shown, discontinue and re-order from Quick Search* Active Metoprolol Succinate ER 50 mg TAKE ONE TABLET BY MOUTH ONCE A DAY FOR HYPERTENSION AND A. FIB; Duration: 30 Active Pantoprazole Sodium 40 mg TAKE ONE TABLET BY MOUTH ONCE A DAY; Duration: 30 Active Finasteride 5 MG 1 tab(s) orally once a day Active predniSONE 10 mg TAKE 1 TO 2 TABLETS BY MOUTH ONCE DAILY FOR 30 DAYS; Duration: 30 Active Immunizations Vaccine Route Administration [...] Status Risk Notes Problem Paroxysmal atrial fibrillation (988197970) Paroxysmal atrial fibrillation (I48.0) Active confirmed Problem Tobacco use (361474835) Tobacco use (Z72.0) Active confirmed Problem Dependence on supplemental oxygen (334455037217) Dependence on supplemental oxygen (Z99.81) Active confirmed Problem Essential hypertension (00607447) Essential hypertension (I10) Active confirmed Problem Acute exacerbation of chronic obstructive airways disease (015216616) COPD exacerbation (J44.1) Active confirmed Problem Senile debility (62788091) Senile debility (R54) Active confirmed Problem Chronic fatigue syndrome (55414802) Chronic fatigue (R53.82) Active confirmed Problem Iron deficiency anemia (83962378) Iron deficiency anemia, unspecified iron deficiency anemia type (D50.9) Active confirmed Problem Lower urinary tract symptoms due to benign prostatic hypertrophy (63479666746908) Benign prostatic hyperplasia with lower urinary tract symptoms, symptom details unspecified (N40.1) Active confirmed Problem Chronic respiratory failure (40036011) Chronic hypoxic respiratory failure (J96.11) Active confirmed Problem Chronic obstructive pulmonary disease (22644511) COPD, 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) Active confirmed Encounters Encounter Location Date Provider Diagnosis [facility] [address] [facility] [address] [place] [address] 06/06/2024 Provider Migration Paroxysmal atrial fibrillation I48.0 ; Tremor R25.1 ; COPD exacerbation J44.1 ; Dyspepsia R10.13 and Peripheral edema R60.0 [facility] [address] [facility] [address] [place], [place] [address] 01/19/2025 Maribeth Mclean Cellulitis of toe of right foot L03.031 [facility] [address] [facility] [address] [place], [place] [address] 03/17/2024 Maribeth Mclean Peripheral edema R60.0 ; COPD exacerbation J44.1 ; Paroxysmal atrial fibrillation I48.0 ; COPD, severe J44.9 ; Dependence on supplemental oxygen Z99.81 ; Chronic hypoxic respiratory failure J96.11 ; Essential hypertension I10 ; Abdominal distension R14.0 and Benign prostatic hyperplasia with lower urinary tract symptoms, symptom details unspecified N40.1 [facility] [address] [place] [address] 07/28/2024 Maribeth Mclean COPD exacerbation J44.1 ; Peripheral edema R60.0 ; Paroxysmal atrial fibrillation I48.0 ; COPD, severe J44.9 ; Dependence on supplemental oxygen Z99.81 ; Chronic hypoxic respiratory failure J96.11 ; Essential hypertension I10 and Hospital discharge follow-up Z09 [facility] [place] [address] [place], [place] [address] 11/17/2024 Maribeth Mclean Peripheral edema R60.0 ; COPD, severe J44.9 ; Paroxysmal atrial fibrillation I48.0 ; Dependence on supplemental oxygen Z99.81 ; Chronic hypoxic respiratory failure J96.11 ; Essential hypertension I10 ; Iron deficiency anemia, unspecified iron deficiency anemia type D50.9 and Benign prostatic hyperplasia with lower urinary tract symptoms, symptom details unspecified N40.1 [facility] [address] [place], [place] [address] 12/29/2024 Maribeth Mclean COPD, severe J44.9 ; Community acquired pneumonia of right lower lobe of lung J18.9 ; Peripheral edema R60.0 ; Paroxysmal atrial fibrillation I48.0 ; Dependence on supplemental oxygen Z99.81 ; Chronic hypoxic respiratory failure J96.11 ; Essential hypertension I10 ; Senile debility R54 ; Hospital discharge follow-up Z09 and Tobacco use Z72.0 [facility] [address] [place] [address] 02/18/2024 Maribeth Caridad [facility] [address] [place] [address] 04/06/2024 Maribeth Caridad [facility] [address] [place] [address] 04/21/2024 Maribeth Caridad [facility] [address] [place] [address] 05/14/2024 Maribeth Caridad [facility] [address] [place] [address] 07/23/2024 Maribeth Caridad [facility] [address] [place] [address] 07/31/2024 Maribeth Caridad [facility] [address] [place] [address] 08/04/2024 Maribeth Caridad [facility] [address] [place] [address] 09/09/2024 Maribeth Caridad [facility] [address] [place] [address] 09/17/2024 Maribeth Caridad [facility] [address] [place] [address] 11/06/2024 Maribeth Caridad [facility] [address] [place] [address] 12/22/2024 Maribeth Caridad [facility] [address] [place] [address] 01/11/2025 Maribeth Caridad Assessments Encounter Date Diagnosis (ICD [...] J44.1) Symptomatically improving...he plans to FU with [facility] Pulmonology which will be more convenient [...] J44.9) Breztri, prednisone, has pulmonology FU arranged. 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 12/29/2024 Essential hypertension (ICD-10 - I10) improved [...] End Date [place] [address] [place] [place] [address] [id number] Carroll Garcia Self - patient is the insured [facility] [address] [place] [address] [id number] Carroll Garcia Self - patient is the insured Medical (General) History Medical History History ICD Code Histoplasmosis - treated previously with amphotericin Lung Infection Hypertension High Cholesterol COPD/ASTHMA BPH Atrial Fib MYAH Tobacco Abuse Alcohol Abuse Hospitalization History Reason Date(Month/Year) [facility] - COPD exacerbation Dec 2024 [facility] - COPD exacerbation July 2024 [facility] JULY 2023
--- OUTSIDE RECORDS SUMMARY | 2025-01-23 12:29 | XMS_ITS | Clinical Summary ---
Author Organization [facility] Address [address] [facility] [address] [place] [address] Phone Care Team Providers Care Flat Grinder Operator Name Role Phone Unavailable Primary Care [...] Care Team Description 11/12/2024 Refill [facility] [address] [facility] Building [address] [place], [place] [id number] Matheus Childress MD Medication Refill from Last 3 Months Social History Tobacco Use Types Packs/Day Years Used Date Smoking Tobacco: Every Day Cigarettes 2 60.9 Started: 1963 Smokeless Tobacco: Never Tobacco Cessation:Ready [...] contact the office of the ordering clinician. [email or web address] Narrative 06/24/2023 4:[address] [facility] LUNG CANCER SCREENING FOLLOW UP 06/24/2023 2:14 PM CLINICAL HISTORY: Asymptomatic patient meeting NCCN high risk criteria for lung screening. R91.1-Solitary pulmonary [id number]. COMPARISON: 06/06/2023, 03/24/2023 PROCEDURE COMMENTS: Noncontrast, low-dose, multidetector CT chest per department protocol. Interactive 3-D postprocessing done by the reviewing physician on a SlideShare workstation, using Maximum intensity projections (MIPS) and LitblocO LUNG CAD for improved lesion detection. Dickens [...] high risk criteria forlung screening. R91.1-Solitary pulmonary [id number]. COMPARISON: 06/06/2023, 03/24/2023 PROCEDURE COMMENTS: Noncontrast, low-dose, multidetector CT chest perdepartment protocol. Interactive 3-D postprocessing done by the reviewing physicianon a SlideShare workstation, using Maximum intensity projections (MIPS) and SYNGBeats MusicUNG CAD for improved lesion detection. Dickens images [...] relatively well-circumscribed bilateral nodules that persist. Continued kaf-kpkaizfamnb-if recommended. RECOMMENDATION: Low Dose CT - 6 Mo A summary letter communicating these results will be mailed to thepatient's address of record. CODE Lung Follow Up. Note: Radiology results need to be interpreted within a comprehensiveclinical context. If you have questions about the radiology report, please contactthe office of the ordering clinician. [email or web address] Matheus Childress MD IM CT ORDERABLES Final Res ult from Last 3 Months or Most Recently Relevant to Health Maintenance Insurance [employer] [place] [address] [employer] [place] PART [place]
--- NOTE | 2025-01-23 12:30 | PC.NURSE ---
Nikole in respiratory notified of green top in lab for a VBG.
[2025-01-23] MEDS: FUROSEMIDE 40MG/4ML VIAL 40 MG IV ×2 (12:34→17:50)
[2025-01-23 12:39] LABS: VBG HCO3 32.3 mmol/L (23-30); VBG PCO2 73.6 mmol/L (35-51); VBG PH 7.26 mmol/L (7.31-7.41); VBG PO2 29.2 mmol/L (28-40)
[2025-01-23 12:40] LABS: Lactate Venous 2.7 mmol/L (0.4-2.0)
--- NOTE | 2025-01-23 12:43 | PC.NURSE ---
Nikole in respiratory notified of verbal order to place on BIPAP
[2025-01-23 12:45] LABS: Hematocrit 39.3 % (42.0-52.0); Hemoglobin 12.5 g/dL (14.1-18.0); Immature Granulocytes % 0.8 %; Mean Corpuscular HGB Conc 31.8 g/dL (31.8-35.4); Mean Corpuscular Hemoglobin 30.6 pg (27.0-31.2); Mean Corpuscular Volume 96.3 fl (80-94); Nucleated Red Blood Cells % 0 %; Platelet Count 264 K/mm3 (142-424); Red Blood Count 4.08 M/mm3 (4.60-6.20); Red Cell Distribution Width-SD 50.2 fL; White Blood Count 10.1 K/mm3 (4.8-10.8)
[2025-01-23 13:02] LABS: Alanine Aminotransferase 22 U/L (12-78); Albumin Level 4.3 g/dl (3.5-5.0); Albumin/Globulin Ratio 1.3 (1.1-1.8); Alkaline Phosphatase 89 U/L (38-126); Aspartate Amino Transferase 24 U/L (17-59); Bilirubin,Total 0.8 mg/dl (0.2-1.3); Blood Urea Nitrogen 21 mg/dl (9-20); Calcium 9.7 mg/dl (8.4-10.2); Carbon Dioxide 33 mmol/L (22.0-30.0); Creatinine Clearance Estimated 51 mL/min (50-200); Creatinine,Serum 0.90 mg/dl (0.66-1.25); Estimated Glomerular Filt Rate 82 ml/min (>60); GFR (African American) 99 ML/MIN (>60); Globulin 3.2 g/dL (1.3-3.2); Glucose 124 mg/dl (74-100); Potassium 4.3 mmoL/L (3.5-5.1); Sodium 134 mmol/L (136-145); Total Protein,Serum 7.5 g/dl (6.3-8.2)
[2025-01-23 13:05] LABS: Activated Partial Thrombo Time 26.5 seconds (22.8-30.6); INR 1.03 (0.9-1.1); Prothrombin Time 11.4 seconds (10.1-12.5)
[2025-01-23] MEDS: MAGNESIUM SULFATE IN WATER 2 GM/50 ML PIGGYBACK IV (13:10)
[2025-01-23] MEDS: METHYLPREDNISOLONE SOD SUCC 125MG VIAL 125 MG IV (13:10)
[2025-01-23] MEDS: IPRATROPIUM/ALBUTEROL 3 ML NEB 9 ML IH (13:11)
[2025-01-23 13:13] LABS: D-Dimer 0.87 ug/mL (0.0-0.5); NT Pro Brain Natriuretic Pep. 342 pg/mL (0-450)
[2025-01-23 13:15] LABS: Microscopic, Urine URINE MICROSCOPIC (MICROSCOPIC)
[2025-01-23 13:23] LABS: Bilirubin,Urine Negative (Negative); Color,Urine YELLOW (Yellow); Glucose,Urine (UA) Negative (Negative); Ketones,Urine Negative (Negative); Leukocyte Esterase,Urine Negative (Negative); PH,Urine 7.0 (5.0-8.5); Protein,Urine Negative (Negative); Specific Gravity, Urine 1.010 (1.005-1.030); Urobilinogen,Urine 0.2 EU/dl (0.2)
[2025-01-23 13:24] LABS: Troponin I < 0.01 ng/ml (0.00-0.034)
--- NOTE | 2025-01-23 13:28 | PC.NURSE ---
Blas SAMSON spoke with about admission. requests the pt stay on the BIPAP for one hour then get an ABG.
[2025-01-23 13:39] LABS: RBC Morphology Normal; Total Cells Counted 100
[2025-01-23 13:43] LABS: Anion Gap 9.3 mEq/L (5-15); Chloride 96 mmol/L (98-107)
[2025-01-23 14:05] LABS: Benzodiazepines Screen,Urine Negative ng/ml (<200)
[2025-01-23 14:06] LABS: Amphetamine/Metha Screen,Urine Negative ng/ml (<1000)
[2025-01-23 14:07] LABS: Barbiturates Screen,Urine Negative ng/ml (<200); Methadone Screen,Urine Negative ng/ml (<300)
[2025-01-23 14:09] LABS: Opiate Screen,Urine Negative ng/ml (<300)
[2025-01-23 14:10] LABS: Phencyclidine Screen,Urine Negative ng/ml (<25)
--- NOTE | 2025-01-23 14:18 | PC.NURSE ---
Nikole in respiratory notified of the order to collect an ABG
[2025-01-23 14:40] LABS: ABG HCO3 30.3 mmhg (22.0-26.0); ABG PCO2 46.2 mmhg (35.0-45.0); ABG PH 7.43 mmol/L (7.35-7.45); ABG PO2 128.1 mmhg (80-100); ABG TCO2 31.7 mmhg (23-27)
[2025-01-23 14:42] LABS: Source Right Radial
[2025-01-23 14:55] LABS: Hepatitis C Ab Qual. W/ RFX NEGATIVE (Negative)
--- NOTE | 2025-01-23 15:08 | PC.NURSE ---
house coordinator notified of admission
--- NOTE | 2025-01-23 15:11 | PC.NURSE ---
Addendum entered by Norma Vasquez RN 01/23/25 15:18: time changed to 14:54 Original Note: Dr. Shelton at pts bedside.
--- NOTE | 2025-01-23 15:23 | PC.NURSE ---
Called report to JOE Durant.
--- NOTE | 2025-01-23 16:21 | PC.WOUNDNOTE ---
BLISTERS IN TOP OF TOES ON RIGHT FOOT
[2025-01-23 16:40] LABS: Reflex Lactic Add Lactic Reflex
[2025-01-23 16:50] LABS: Troponin I < 0.01 ng/ml (0.00-0.034)
--- NOTE | 2025-01-23 17:12 | EXP.HP ---
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 He states he has not been able to sleep last 2 nights. Patient was recently discharged from facility on 01/08/2025 for similar symptoms and was treated for AECOPD, hypercapnic respiratory failure, HAP and was discharged with BiPAP. Patient states he has been compliant with his BiPAP for the last 3 days, has been wearing it for 6 hours a day for the past 2 days. In spite of that, he states he feels like he has to cough something out for the past 2 days but unable to. Also endorses shortness of breath. Denies chest pain, fever/chills.Workup in the ED significant for VBG pH 7.26, pCO2 73.6. Otherwise other workup unremarkable including CBC, CMP, CXR, UA. He was placed on BiPAP for 2 hours, repeat ABG showed resolution in acute hypercapnia. Patient shortness of breath also slightly improved, but continued to have symptoms. Given this presentation, ED provider discussed case with manage decided admit patient for acute on chronic hypercapnic respiratory failure. Dr. Mabry agreed with admission. [facility] Disclaimer: The information contained in this section may have been updated after the patient was seen, as this information can be updated by other users. Medical History Encounter for screening for malignant neoplasm of lung Alcohol withdrawal seizure Anemia Multiple lung nodules on CT COPD mixed type Smoking greater than 30 pack years Pulmonary emphysema Appendicitis History of prostate disorder GERD (gastroesophageal reflux disease) Hypertension Afib COPD (chronic obstructive pulmonary disease) Surgical History H/O foot surgery History of appendectomy Family History Other Family history of COPD (chronic obstructive pulmonary disease) Family history of hyperlipidemia Family history of hypertension Family history of myocardial infarction Social History (Updated 01/23/25 @ 16:40 by Carleen Rouse RN) Smoking Status: Current some day smoker tobacco type: cigarettes packs per day: 1 pack-years: 62 alcohol intake: former substance use type: denies use current occupational status: retired Travel in the last 8 weeks?: None Have you lived/traveled outside US in past 30 days?: No Contact w/someone who lives/traveled outside US past 30 days?: No Exposure to someone with infectious disease in past 14 days?: No Do you have a fever (greater than 100.4 F or 38 C)?: No Have you tested positive for COVID-19?: No Exposed to someone with COVID-19 in past 14 days?: No Do you have a sore throat?: No Do you have a cough?: No Do you have any weakness?: No Are you experiencing any nausea/vomitting?: No Do you have any diarrhea?: No Are you experiencing any unusual bleeding?: No Do you have any muscle aches/pain?: No Do you have any abdominal pain?: No Are you experiencing loss of taste or smell?: No Other Medical History Have you received the Flu Vaccine for this season: Yes Have you received the Pneumonia Vaccine: Yes Meds Home Medications and Allergies Home Medications ?Medication ?Instructions ?Recorded ?Confirmed ?Type apixaban 5 mg tablet 5 mg PO BID 07/24/22 01/23/25 History albuterol sulfate 90 mcg/actuation 2 puff inhalation Q4HP PRN 07/29/23 01/23/25 Rx aerosol inhaler Shortness Of Breath 30 days #8.5 grams pantoprazole 40 mg tablet,delayed 40 mg PO DAILY 30 days #30 tabs 07/29/23 01/23/25 Rx release budesonide 160 mcg-glycopyr 9 2 puff inhalation BID 07/20/24 01/23/25 History mcg-formot 4.8 mcg/actuation HFA inhaler (Breztri Aerosphere) famotidine 40 mg tablet 40 mg PO HS 07/20/24 01/23/25 History furosemide 20 mg tablet 20 mg PO DAILYP PRN fluid retention 07/20/24 01/07/25 History ipratropium 20 mcg-albuterol 100 1 puff inhalation QID 07/20/24 01/23/25 History mcg/actuation mist for inhalation (Combivent Respimat) metoprolol succinate 50 mg 50 mg PO DAILY 07/20/24 01/23/25 History tablet,extended release 24 hr primidone 50 mg tablet 50 mg PO DAILY 07/20/24 01/23/25 History irbesartan 75 mg tablet 75 mg PO HS 30 days #30 tabs 12/22/24 01/23/25 Rx tamsulosin 0.4 mg capsule 0.8 mg (2 x 0.4 mg) PO HS 30 days 12/22/24 01/23/25 Rx #60 caps fluticasone propionate 50 1 spray intranasal BID #16 grams 12/23/24 01/23/25 Rx mcg/actuation nasal spray,suspension oxymetazoline 0.05 % nasal spray 1 spray intranasal BIDP PRN 12/23/24 01/23/25 Rx (Afrin (oxymetazoline)) CONGESTION #22 mL prednisone 10 mg tablet 10 mg PO DAILY 01/07/25 01/23/25 History Held on 01/08/25. Instructions: Resume on 01/12/25. ipratropium 0.5 mg-albuterol 3 mg 3 ml inhalation Q4RT PRN shortness 01/08/25 01/23/25 Rx (2.5 mg base)/3 mL nebulization of breath or wheezing #90 mL soln levocetirizine 5 mg tablet 5 mg PO HS 01/23/25 01/23/25 History New Prescriptions to Start Prescriptions: Allergies Allergy/AdvReac Type Severity Reaction Status Date / Time No Known Allergies Allergy Verified 08/05/24 12:54 Exam Data for Last 24 hours Vital signs and Labs for Last 24 Hours: Temp Pulse Resp BP Pulse Ox O2 Del Method O2 Flow Rate 97.6 F 94 H 26 H 131/72 93 L Nasal Cannula, Venturi Mask 2.5 01/23/25 16:16 01/23/25 16:16 01/23/25 16:16 01/23/25 16:16 01/23/25 16:43 01/23/25 16:43 01/23/25 16:43 FiO2 35 01/23/25 12:50 Laboratory Results - last 24 hr 01/23/25 12:24: VBG pH 7.26 L, VBG pCO2 73.6 H, VBG pO2 29.2, VBG HCO3 32.3 H, VBG Total CO2 34.5 H, VBG O2 Saturation 49.5 L, VBG Base Excess 5.2 H, VBG Lactic Acid 2.7 H 01/23/25 12:30: WBC 10.1, RBC 4.08 L, Hgb 12.5 L, Hct 39.3 L, MCV 96.3 H, MCH 30.6, MCHC 31.8, RDW 14.1, Plt Count 264, MPV 9.5, Neut % (Auto) 91.8 H, Lymph % (Auto) 4.2 L, [place] % (Auto) 2.9, Eos % (Auto) 0.1, Baso % (Auto) 0.2, Neut # (Auto) 9.3 H, Lymph # (Auto) 0.4 L, [place] # (Auto) 0.3, Eos # (Auto) 0.0, Baso # (Auto) 0.0, Total Counted 100, Neutrophils % (Manual) 90 H, Lymphocytes % (Manual) 6 L, Monocytes % (Manual) 3, Basophils % (Manual) 1.0, Platelet Estimate Normal, RBC Morphology Normal, PT 11.4, INR 1.03, APTT 26.5, D-Dimer 0.87 H, Sodium 134 L, Potassium 4.3, Chloride 96 L, Carbon Dioxide 33 H, Anion Gap 9.3, BUN 21 H, Creatinine 0.90, Estimated Creat Clear 51, Estimated GFR 82, Est GFR ( Amer) 99, Glucose 124 H, Calcium 9.7, Total Bilirubin 0.8, AST 24, ALT 22, Alkaline Phosphatase 89, Troponin I < 0.01, NT-Pro-B Natriuret Pep 342, Total Protein 7.5 D, Albumin 4.3, Globulin 3.2, Albumin/Globulin Ratio 1.3, Plasma/Serum Alcohol < 10, HCV Ab EFRAIN w/Rflx PCR Qn Negative, HIV Ag/Ab Combo Qual Negative 01/23/25 13:10: Urine Color Yellow, Urine Appearance Clear, Urine pH 7.0, Ur Specific [place] 1.010, Urine Protein Negative, Urine Glucose (UA) Negative, Urine Ketones Negative, Urine Blood Negative, Urine Nitrate Negative, Urine Bilirubin Negative, Urine Urobilinogen 0.2, Ur Leukocyte Esterase Negative 01/23/25 13:12: Urine Opiates Screen Negative, Urine Methadone Screen Negative, Ur Barbituates Screen Negative, Ur Phencyclidine Scrn Negative, Ur Amphetamines Screen Negative, U Benzodiazepines Scrn Negative, Urine Cocaine Screen Negative, U Marijuana (THC) Screen Negative 01/23/25 14:20: Specimen Source Right radial, O2 % Bipap 14/6 35%, ABG pH 7.43, ABG pCO2 46.2 H, ABG pO2 128.1 H, ABG HCO3 30.3 H, ABG Total CO2 31.7 H, ABG O2 Saturation 99, ABG Base Excess 6.0 H, Robbie Test Acceptable, Vent Rate 20 01/23/25 16:18: Troponin I < 0.01 I & O for Last 24 hours: Intake & Output 01/20/25 01/21/25 01/22/25 01/23/25 23:59 23:59 23:59 23:59 Intake Total 50 / 50 Output Total 100 / 100 Balance -50 / -50 Weight 58.967 kg Constitutional Constitutional: no acute distress, cachectic and chronically ill appearing *Routine HEENT Exam Head: Present normocephalic Eye: Present EOMI and PERRL ENT: Present mucous membranes moist *Routine Neck Exam Neck: Present supple; Absent lymphadenopathy *Routine Respiratory Exam Respiratory: Present wheezes and diminished air movement; Absent CTA bilaterally *Routine Cardiovascular Exam Cardiovascular: Present RRR *Routine Abdominal Exam Abdominal: Present soft and normoactive bowel sounds; Absent tenderness *Routine Rectal Exam Rectal:: deferred *Routine Genitalia Exam Genitalia:: deferred *Routine Extremities Exam Extremities: Present edema; Absent cyanosis or clubbing *Routine Skin Exam Skin: Present warm; Absent rash *Routine Neurological Exam Neurological: Present alert and oriented X3 Assessment and Plan *Assessment and plan (1) Hypercapnic respiratory failure: Status: Acute Category: Medical Code(s): J96.92 - Respiratory failure, unspecified with hypercapnia (2) Acute hypercapnic respiratory failure: Status: Acute Category: Medical Code(s): J96.02 - Acute respiratory failure with hypercapnia Plan Carroll Garcia is a 79 year old male with a medical history significant for 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 He states he has not been able to sleep last 2 nights. Patient was recently discharged from facility on 01/08/2025 for similar symptoms and was treated for AECOPD, hypercapnic respiratory failure, HAP and was discharged with BiPAP. Patient states he has been compliant with his BiPAP for the last 3 days, has been wearing it for 6 hours a day for the past 2 days. In spite of that, he states he feels like he has to cough something out for the past 2 days but unable to. Also endorses shortness of breath. Denies chest pain, fever/chills.Workup in the ED significant for VBG pH 7.26, pCO2 73.6. Otherwise other workup unremarkable including CBC, CMP, CXR, UA. He was placed on BiPAP for 2 hours, repeat ABG showed resolution in acute hypercapnia. Patient shortness of breath also slightly improved, but continued to have symptoms. Given this presentation, ED provider discussed case with manage decided admit patient for acute on chronic hypercapnic respiratory failure. Dr. Mabry agreed with admission. #Acute on chronic hypercapnic respiratory failure #Chronic hypoxic respiratory failure #Severe bullous emphysema ? Presented which progressive shortness of breath, found to be hypercapnic on VBG. Placed on BiPAP in the ED, repeat ABG shows resolution of acute hypercapnia. ? Patient states he has been adherent with his BiPAP over the past few days, wearing it 6 hours a day over the past 2 days. Cannot tolerated it at night, wears it during the day. ? Given ongoing symptoms even after BiPAP discussed with pulmonology, agreed with admission. Will need goals of care conversation tomorrow given severe bullous emphysema. ? CXR without infection. Follow-up respiratory panel. ? Started DuoNebs every 4 hours, Pulmicort twice daily ? Prednisone 40 mg daily. ? Follow-up morning VBG. ? BiPAP nightly with settings of 16/8 and FiO2 of 28%. #Lower extremity edema ? BNP normal. Likely from venous insufficiency. Continue to monitor. ? Will recommend leg elevation, compression stockings. ? Patient states he is having blisters, will give one-time dose of IV Lasix 40 mg. #A-fib ? Currently rate controlled. Eliquis 5 mg twice daily. Will switch metoprolol to diltiazem 120 mg given severe COPD. #Hypertension ?Hold home irbesartan 75 mg for now. #BPH ? Continue home tamsulosin. #GERD #Gastritis ? Continue Protonix 40 mg nightly. #Essential tremor ? Continue home primidone 50 mg daily. Full code DVT prophylaxis: Vj
--- NOTE | 2025-01-23 17:12 | PC.NURSE ---
med rec completed except for the lasix, patient was unsure of what miligram he takes
[2025-01-23] MEDS: IPRATROPIUM/ALBUTEROL 3 ML NEB IH ×2 (17:54→21:33)
[2025-01-23] MEDS: BUDESONIDE 0.5MG/2ML NEB 0.5 MG IH (17:54)
[2025-01-23] MEDS: ACETAMINOPHEN 325MG TAB 650 MG PO (18:01)
[2025-01-23] MEDS: KETOROLAC 15MG/ML VIAL 15 MG IV (18:26)
[2025-01-23 18:44] LABS: Lactic Acid Follow Up (RFLX 1) 2.1 mmol/L (0.7-2.1)
[2025-01-23 18:50] LABS: Troponin I < 0.01 ng/ml (0.00-0.034)
[2025-01-23] MEDS: APIXABAN 5MG TABLET 5 MG PO (20:20)
[2025-01-23] MEDS: TAMSULOSIN 0.4MG CAPSULE 0.8 MG PO (20:20)
[2025-01-23 20:26] LABS: Reflex Lactic (2 hrs) Add Lactic Reflex
[2025-01-23 21:30] LABS: Lactic Acid Follow up (RFLX 2) 1.5 mmol/L (0.7-2.1)
[2025-01-24] VITALS (22 sets, daily range): BP systolic 113–161; BP diastolic 56–76; PULSE 72–110; RESP 16–35; TEMP 36.3–36.8; O2SAT 94–99; BMI 17.9
[2025-01-24] MEDS: KETOROLAC 15MG/ML VIAL 15 MG IV (00:05)
[2025-01-24] MEDS: IPRATROPIUM/ALBUTEROL 3 ML NEB IH ×7 (01:37→22:22)
--- NOTE | 2025-01-24 05:00 | PC.NURSE ---
Patient without output for entirety of shift. Bladder scan showed patient with 600ml retained in bladder. Encouraged patient to pee, to which patient states that he does not feel like he has to be. Informed him that his bladder is distended, and to try and urinate if possible. Patient attempted to urinate with purwick attached and was able to produce 100ml per his purwick. After speaking with hospitalist, verbal order to straight cath patient for urinary retention. Patient informed that straight cath will need to be performed to which patient is agreeable. Straight cath output 500ml. Patient bladder scanned for post void residual, <1ml noted in bladder. Patient reports that he does feel better once bladder is emptied. Patient states that approx one year ago he had this issue to which we had to self catheterize himself for a couple of weeks until he could pee again on his own. Patient repositioned to comfort, and denies further needs.
[2025-01-24] MEDS: BUDESONIDE 0.5MG/2ML NEB 0.5 MG IH ×2 (05:58→18:19)
[2025-01-24 07:45] LABS: Hematocrit 34.7 % (42.0-52.0); Immature Granulocytes % 0.4 %; Mean Corpuscular HGB Conc 32.0 g/dL (31.8-35.4); Mean Corpuscular Hemoglobin 30.2 pg (27.0-31.2); Mean Corpuscular Volume 94.3 fl (80-94); Nucleated Red Blood Cells % 0 %; Platelet Count 244 K/mm3 (142-424); Red Blood Count 3.68 M/mm3 (4.60-6.20); Red Cell Distribution Width-SD 48.9 fL; White Blood Count 5.1 K/mm3 (4.8-10.8)
[2025-01-24 07:50] LABS: Lactate Venous 1.4 mmol/L (0.4-2.0); VBG HCO3 33.1 mmol/L (23-30); VBG PCO2 49.3 mmol/L (35-51); VBG PH 7.45 mmol/L (7.31-7.41); VBG PO2 36.7 mmol/L (28-40)
[2025-01-24 08:22] LABS: Alanine Aminotransferase 19 U/L (12-78); Albumin Level 3.9 g/dl (3.5-5.0); Albumin/Globulin Ratio 1.4 (1.1-1.8); Alkaline Phosphatase 71 U/L (38-126); Anion Gap 5.4 mEq/L (5-15); Aspartate Amino Transferase 29 U/L (17-59); Bilirubin,Total 0.6 mg/dl (0.2-1.3); Blood Urea Nitrogen 42 mg/dl (9-20); Calcium 9.1 mg/dl (8.4-10.2); Carbon Dioxide 36 mmol/L (22.0-30.0); Chloride 96 mmol/L (98-107); Creatinine Clearance Estimated 39 mL/min (50-200); Creatinine,Serum 1.20 mg/dl (0.66-1.25); Estimated Glomerular Filt Rate 59 ml/min (>60); GFR (African American) 71 ML/MIN (>60); Globulin 2.8 g/dL (1.3-3.2); Glucose 123 mg/dl (74-100); Potassium 4.4 mmoL/L (3.5-5.1); Sodium 133 mmol/L (136-145); Total Protein,Serum 6.7 g/dl (6.3-8.2)
[2025-01-24 08:25] LABS: C-Reactive Protein 24.7 mg/L (0-4)
[2025-01-24 08:38] LABS: Procalcitonin 0.120 ng/mL (0.0-2.0)
[2025-01-24] MEDS: PANTOPRAZOLE 40MG TABLET 40 MG PO (08:41)
[2025-01-24] MEDS: PRIMIDONE 50MG TABLET 50 MG PO (08:41)
[2025-01-24] MEDS: dilTIAZem ER 120MG CAPSULE 120 MG PO (08:41)
[2025-01-24] MEDS: APIXABAN 5MG TABLET 5 MG PO ×2 (08:42→20:31)
--- NOTE | 2025-01-24 09:27 | HMH.PHAINT1 ---
Pharmacy Intervention Comments: MEDICATION RECONCILIATION COMPLETE USING EXTERNAL PHARMACY FILL HISTORY AND RECENT HOSPITAL DISCHARGE NOTE.
[2025-01-24] MEDS: CEFEPIME HCL 2 GM in 0.9 % SODIUM CHLORIDE 100 ML IV ×2 (10:12→20:30)
[2025-01-24] MEDS: FUROSEMIDE 40MG/4ML VIAL 40 MG IV (10:12)
[2025-01-24 10:31] LABS: RBC Morphology Normal; Total Cells Counted 100
--- NOTE | 2025-01-24 10:47 | HMH.PHAAMS2 ---
- Antimicrobial Stewardship Review culture & sensitivity review Stewardship interventions: culture & sensitivity review Comments: SPUTUM AND BLOOD CX PENDING, TREATING RESPIRATORY FAILURE/EMPHYSEMA WITH CEFEPIME.
[2025-01-24 10:48] LABS: Hemoglobin 11.0 g/dL (14.1-18.0)
--- NOTE | 2025-01-24 11:03 | EXP.EVENT.NO ---
Advance care planning discussion. Personnel present: Patient and me. #Acute on chronic hypercapnic respiratory failure #Chronic hypoxic respiratory failure #Severe bullous emphysema ? Presented which progressive shortness of breath, found to be hypercapnic on VBG. ? Patient states he has been adherent with his BiPAP over the past few days prior to admission, wearing it 6 hours a day over the past 2 days. Cannot tolerated it at night, wears it during the day. ? Extensively discussed with patient regarding end-stage severe bullous emphysema/COPD. He understands the advanced nature of his lung disease, and that it is irreversible which puts him at a high risk for infections, complications, and recurrent hospitalizations. He prefers not to have recurrent hospitalizations, prefers to stay home and be comfortable. Interested in hospice care, has been consulted and pending evaluation. However, at this time patient wants to be full code. ? IV morphine 2 mg every 4 hours as needed for air hunger. Time spent: 25 minutes.
[2025-01-24] MEDS: MORPHINE 2MG/ML SYRINGE 2 MG IV ×3 (13:04→22:01)
--- NOTE | 2025-01-24 14:04 | P.PN_ITS ---
Subjective *Date: 01/24/25 *Time: 14:04 Interval history: Patient had a desaturation in the 70s this morning, placed on BiPAP with persistent subjective dyspnea. Received IV morphine 2 mg, dyspnea improved and patient is currently resting. Extensively discussed with patient regarding end- stage severe bullous emphysema/COPD. He understands the advanced nature of his lung disease, and that it is irreversible which puts him at a high risk for infections, complications, and recurrent hospitalizations. He prefers not to have recurrent hospitalizations, prefers to stay home and be comfortable. Interested in hospice care, has been consulted and pending evaluation. However, at this time patient wants to be full code. Exam Data for Last 24 hours Vital signs and Labs for Last 24 Hours: Temp Pulse Resp BP Pulse Ox O2 Del Method O2 Flow Rate 98.2 F 107 H 22 161/71 H 94 L BiPAP 3 01/24/25 12:02 01/24/25 12:02 01/24/25 12:02 01/24/25 12:02 01/24/25 12:02 01/24/25 13:00 01/24/25 11:09 FiO2 30 01/24/25 10:00 Laboratory Results - last 24 hr 01/23/25 12:30: HCV Ab EFRAIN w/Rflx PCR Qn Negative, HIV Ag/Ab Combo Qual Negative 01/23/25 13:10: Urine RBC None, Urine WBC None, Ur Squamous Epith Cells None, Urine Bacteria None 01/23/25 13:12: Urine Opiates Screen Negative, Urine Methadone Screen Negative, Ur Barbituates Screen Negative, Ur Phencyclidine Scrn Negative, Ur Amphetamines Screen Negative, U Benzodiazepines Scrn Negative, Urine Cocaine Screen Negative, U Marijuana (THC) Screen Negative 01/23/25 14:20: Specimen Source Right radial, O2 % Bipap 14/6 35%, ABG pH 7.43, ABG pCO2 46.2 H, ABG pO2 128.1 H, ABG HCO3 30.3 H, ABG Total CO2 31.7 H, ABG O2 Saturation 99, ABG Base Excess 6.0 H, Robbie Test Acceptable, Vent Rate 20 01/23/25 16:18: Troponin I < 0.01 01/23/25 18:20: Lactate 2.1, Troponin I < 0.01 01/23/25 21:08: Lactate 1.5 01/24/25 07:30: WBC 5.1 D, RBC 3.68 L, Hgb 11.0 L D, Hct 34.7 L, MCV 94.3 H, MCH 30.2, MCHC 32.0, RDW 14.2, Plt Count 244, MPV 9.6, Neut % (Auto) 84.4 H, Lymph % (Auto) 8.6 L, [place] % (Auto) 6.6, Eos % (Auto) 0.0 L, Baso % (Auto) 0.0 L , Neut # (Auto) 4.3, Lymph # (Auto) 0.4 L, [place] # (Auto) 0.3, Eos # (Auto) 0.0, Baso # (Auto) 0.0, Total Counted 100, Neutrophils % (Manual) 84 H, Lymphocytes % (Manual) 10, Monocytes % (Manual) 6, Platelet Estimate Normal, RBC Morphology Normal, VBG pH 7.45 H, VBG pCO2 49.3, VBG pO2 36.7, VBG HCO3 33.1 H, VBG Total CO2 34.6 H, VBG O2 Saturation 74.1 H, VBG Base Excess 9.0 H, VBG Lactic Acid 1.4, Sodium 133 L, Potassium 4.4, Chloride 96 L, Carbon Dioxide 36 H, Anion Gap 5.4, BUN 42 H D, Creatinine 1.20 D, Estimated Creat Clear 39, Estimated GFR 59, Est GFR ( Amer) 71 D, Glucose 123 H, Calcium 9.1, Total Bilirubin 0.6, AST 29, ALT 19, Alkaline Phosphatase 71, C-Reactive Protein 24.7 H, Total Protein 6.7, Albumin 3.9, Globulin 2.8, Albumin/Globulin Ratio 1.4, Pro calcitonin 0.120 I & O for Last 24 hours: Intake & Output 01/21/25 01/22/25 01/23/25 01/24/25 23:59 23:59 23:59 23:59 Intake Total 170 / 170 350 / 350 Output Total 350 / 350 Balance -180 / -180 350 / 350 Weight 58.967 kg 54.794 kg Microbiology Reports for the Last 24 Hours: Microbiology 01/23/25 12:48 Blood Blood Culture - Preliminary NO GROWTH AFTER 24 HOURS 01/23/25 12:30 Blood Blood Culture - Preliminary NO GROWTH AFTER 24 HOURS 01/23/25 18:07 Sputum - Expectorated Sputum Gram Stain - Final 01/23/25 18:07 Sputum - Expectorated Sputum Sputum Culture - Preliminary Constitutional Constitutional: mild distress and chronically ill appearing *Routine HEENT Exam Head: Present normocephalic Eye: Present EOMI and PERRL ENT: Present mucous membranes moist *Routine Neck Exam Neck: Present supple; Absent lymphadenopathy *Routine Respiratory Exam Respiratory: Present distant breath sounds; Absent CTA bilaterally *Routine Cardiovascular Exam Cardiovascular: Present RRR *Routine Abdominal Exam Abdominal: Present soft and normoactive bowel sounds; Absent tenderness *Routine Extremities Exam Extremities: Present edema; Absent cyanosis or clubbing Comments: Bilateral distal feet erythema and swelling. 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 He states he has not been able to sleep last 2 nights. Patient was recently discharged from facility on 01/08/2025 for similar symptoms and was treated for AECOPD, hypercapnic respiratory failure, HAP and was discharged with BiPAP. Patient states he has been compliant with his BiPAP for the last 3 days, has been wearing it for 6 hours a day for the past 2 days. In spite of that, he states he feels like he has to cough something out for the past 2 days but unable to. Also endorses shortness of breath. Denies chest pain, fever/chills.Workup in the ED significant for VBG pH 7.26, pCO2 73.6. Otherwise other workup unremarkable including CBC, CMP, CXR, UA. He was placed on BiPAP for 2 hours, repeat ABG showed resolution in acute hypercapnia. Patient shortness of breath also slightly improved, but continued to have symptoms. Given this presentation, ED provider discussed case with manage decided admit patient for acute on chronic hypercapnic respiratory failure. Dr. Mabry agreed with admission. #Acute on chronic hypercapnic respiratory failure #Chronic hypoxic respiratory failure #Severe bullous emphysema ? Presented which progressive shortness of breath, found to be hypercapnic on VBG. Placed on BiPAP in the ED, repeat ABG shows resolution of acute hypercapnia. ? Patient states he has been adherent with his BiPAP over the past few days prior to admission, wearing it 6 hours a day over the past 2 days. Cannot tolerated it at night, wears it during the day. ? Given ongoing symptoms even after BiPAP discussed with pulmonology, agreed with admission. ? CXR without infection. Follow-up respiratory panel. ? Extensively discussed with patient regarding end-stage severe bullous emphysema/COPD. He understands the advanced nature of his lung disease, and that it is irreversible which puts him at a high risk for infections, complications, and recurrent hospitalizations. He prefers not to have recurrent hospitalizations, prefers to stay home and be comfortable. Interested in hospice care, has been consulted and pending evaluation. However, at this time patient wants to be full code. ? Patient had a desaturation in the 70s this morning, placed on BiPAP with persistent subjective dyspnea. Received IV morphine 2 mg, dyspnea improved and patient is currently resting. ? Continue DuoNebs every 4 hours, Pulmicort twice daily. Started Mucomyst as patient states he is having a hard time coughing up phlegm. ? IV Solu-Medrol 40 mg twice daily. ? IV morphine 2 mg every 4 hours as needed for air hunger. ? Follow-up morning VBG. ? BiPAP nightly with settings of 16/8 and FiO2 of 28%. #Lower extremity edema #Right lower extremity cellulitis versus venous stasis dermatitis ? BNP normal. Likely from venous insufficiency. Continue to monitor. ? Will recommend leg elevation, compression stockings. ? Patient states he is having blisters, will give one-time dose of IV Lasix 40 mg. ? Started cefepime 2 g every 12 hours as empiric treatment for cellulitis. #A-fib ? Currently rate controlled. Eliquis 5 mg twice daily. Switched metoprolol to diltiazem 120 mg given severe COPD. #Hypertension ? Hold home irbesartan 75 mg for now. BP stable at this time. #BPH ? Continue home tamsulosin. #GERD #Gastritis ? Continue Protonix 40 mg nightly. #Essential tremor ? Continue home primidone 50 mg daily. Full code DVT prophylaxis: Vj
[2025-01-24 17:01] LABS: Adenovirus,PCR Not Detected (NotDetected); Chlamydophila Pneumoniae, PCR Not Detected (NotDetected); Coronavirus 19, PCR Not Detected (NotDetected); Coronovirus HKU1,PCR Not Detected (NotDetected); Influenza A, PCR Not Detected (NotDetected); Influenza AH1, 2009 Not Detected (NotDetected); Influenza AH1, PCR Not Detected (NotDetected); Influenza AH3,PCR Not Detected (NotDetected); Influenza B, PCR Not Detected (NotDetected); Mycoplasma Pneumoniae, PCR Not Detected (NotDetected); Parainfluenza 1, PCR Not Detected (NotDetected); Parainfluenza 2, PCR Not Detected (NotDetected); Parainfluenza 3, PCR Not Detected (NotDetected); Parainfluenza 4, PCR Not Detected (NotDetected)
--- NOTE | 2025-01-24 17:14 | PC.NURSE ---
HOSPICE NURSE AT BEDSIDE FOR CONSULT
[2025-01-24] MEDS: METHYLPREDNISOLONE SOD SUCC 40MG VIAL 40 MG IV (20:30)
[2025-01-24] MEDS: TAMSULOSIN 0.4MG CAPSULE 0.8 MG PO (20:30)
[2025-01-25] VITALS (12 sets, daily range): BP systolic 118–178; BP diastolic 61–94; PULSE 65–94; RESP 14–25; TEMP 36.3–36.8; O2SAT 93–96; BMI 17.9
[2025-01-25] MEDS: IPRATROPIUM/ALBUTEROL 3 ML NEB IH ×3 (02:16→11:50)
[2025-01-25] MEDS: MORPHINE 2MG/ML SYRINGE 2 MG IV ×3 (03:40→11:53)
[2025-01-25 06:04] LABS: Lactate Venous 1.6 mmol/L (0.4-2.0); VBG HCO3 31.5 mmol/L (23-30); VBG PCO2 37.3 mmol/L (35-51); VBG PO2 91.5 mmol/L (28-40)
[2025-01-25 06:12] LABS: VBG PH 7.55 mmol/L (7.31-7.41)
--- NOTE | 2025-01-25 06:25 | PC.NURSE ---
Patient was able to eat and drink without O2 sat dropping on 4L nasal cannula. BiPAP worn for most of the night. Morphine given x2 for air hunger.
[2025-01-25] MEDS: BUDESONIDE 0.5MG/2ML NEB 0.5 MG IH (06:30)
[2025-01-25 06:35] LABS: Hematocrit 32.8 % (42.0-52.0); Hemoglobin 10.5 g/dL (14.1-18.0); Immature Granulocytes % 0.8 %; Mean Corpuscular HGB Conc 32.0 g/dL (31.8-35.4); Mean Corpuscular Hemoglobin 30.2 pg (27.0-31.2); Mean Corpuscular Volume 94.3 fl (80-94); Nucleated Red Blood Cells % 0 %; Platelet Count 198 K/mm3 (142-424); Red Blood Count 3.48 M/mm3 (4.60-6.20); Red Cell Distribution Width-SD 49.5 fL; White Blood Count 5.3 K/mm3 (4.8-10.8)
[2025-01-25 06:54] LABS: Alanine Aminotransferase 12 U/L (12-78); Albumin Level 3.6 g/dl (3.5-5.0); Albumin/Globulin Ratio 1.6 (1.1-1.8); Alkaline Phosphatase 72 U/L (38-126); Anion Gap 8.5 mEq/L (5-15); Aspartate Amino Transferase 16 U/L (17-59); Bilirubin,Total 0.5 mg/dl (0.2-1.3); Blood Urea Nitrogen 48 mg/dl (9-20); Calcium 9.3 mg/dl (8.4-10.2); Carbon Dioxide 31 mmol/L (22.0-30.0); Chloride 97 mmol/L (98-107); Creatinine Clearance Estimated 43 mL/min (50-200); Creatinine,Serum 1.10 mg/dl (0.66-1.25); Estimated Glomerular Filt Rate 65 ml/min (>60); GFR (African American) 78 ML/MIN (>60); Globulin 2.3 g/dL (1.3-3.2); Glucose 134 mg/dl (74-100); Potassium 4.5 mmoL/L (3.5-5.1); Sodium 132 mmol/L (136-145); Total Protein,Serum 5.9 g/dl (6.3-8.2)
[2025-01-25] MEDS: APIXABAN 5MG TABLET 5 MG PO (08:10)
[2025-01-25] MEDS: PRIMIDONE 50MG TABLET 50 MG PO (08:10)
[2025-01-25] MEDS: FUROSEMIDE 40MG/4ML VIAL 40 MG IV (08:10)
[2025-01-25] MEDS: dilTIAZem ER 120MG CAPSULE 120 MG PO (08:10)
[2025-01-25] MEDS: METHYLPREDNISOLONE SOD SUCC 40MG VIAL 40 MG IV (08:11)
[2025-01-25] MEDS: PANTOPRAZOLE 40MG TABLET 40 MG PO (08:11)
[2025-01-25] MEDS: CEFEPIME HCL 2 GM in 0.9 % SODIUM CHLORIDE 100 ML IV (08:17)
--- NOTE | 2025-01-25 08:48 | HMH.PHAAMS2 ---
- Antimicrobial Stewardship Review culture & sensitivity review Stewardship interventions: culture & sensitivity review (WBC WNL, AFEBRILE, SPUTUM PENDING, BLOOD CX NEGATIVE X2)
--- NOTE | 2025-01-25 08:49 | SW/DCPLANNER ---
Addendum entered by Jaclyn Douglas 01/26/25 13:05: Per [facility] this report did NOT meet criteria for investigation. Addendum entered by Jaclyn Douglas 01/25/25 09:39: Web ID# for [facility] Intake is [id number]. Addendum entered by Jaclyn Douglas 01/25/25 08:55: All patient information has been faxed to Angelina gonzalez/ [place]. Original Note: I received a consult on this patient regarding Hospice services. Per nursing staff a Hospice nurse was at bedside over the weekend to discuss services w/ this patient. Patient voiced this AM that he is agreeable to Hospice services and prefers to return back home. Patient has a caregiver that assist two days a week but is home alone. I explained to patient that it is unsafe for him to be home alone and recommended LTC w/ Hospice. Patient is alert and oriented and adamant to return back home. Patient and I did have a lengthy discussion regarding the need for placement. Patient refuses placement and stated that he has a hospital bed, home O2 and bi pap machine at home. I did update [facility] gonzalez/ [place] regarding situation. Angelina stated they would also get their Career Coach involved to work on placement if patient becomes agreeable. Per MD patient will be discharged home today and Hospice will admit once he arrives home. I will notify [facility] of situation as well.
[2025-01-25 09:22] LABS: Hypochromasia 1+; Ovalocytes 1+; Total Cells Counted 100
--- NOTE | 2025-01-25 09:22 | EXP.PULM.CON ---
History of Present Illness History of present illness: Mr. Garcia is a 79-year-old male greater than 30 PPD history of COPD chronic hypoxic respiratory failure, bullous emphysema recently seen in the hospital for hypercarbic respiratory failure discharged home on nasal cannula oxygen supplementation presented to the ER with worsening respiratory send found to be in hypercarbic respiratory failure needing noninvasive ventilatory therapy. [facility] Disclaimer: The information contained in this section may have been updated after the patient was seen, as this information can be updated by other users. Medical History Encounter for screening for malignant neoplasm of lung Alcohol withdrawal seizure Anemia Multiple lung nodules on CT COPD mixed type Smoking greater than 30 pack years Pulmonary emphysema Appendicitis History of prostate disorder GERD (gastroesophageal reflux disease) Hypertension Afib COPD (chronic obstructive pulmonary disease) Surgical History H/O foot surgery History of appendectomy Family History Other Family history of COPD (chronic obstructive pulmonary disease) Family history of hyperlipidemia Family history of hypertension Family history of myocardial infarction Social History (Updated 01/23/25 @ 16:40 by Carleen Rouse RN) Smoking Status: Current some day smoker tobacco type: cigarettes packs per day: 1 pack-years: 62 alcohol intake: former substance use type: denies use current occupational status: retired Travel in the last 8 weeks?: None Have you lived/traveled outside [place] in past 30 days?: No Contact w/someone who lives/traveled outside [place] past 30 days?: No Exposure to someone with infectious disease in past 14 days?: No Do you have a fever (greater than 100.4 F or 38 C)?: No Have you tested positive for COVID-19?: No Exposed to someone with COVID-19 in past 14 days?: No Do you have a sore throat?: No Do you have a cough?: No Do you have any weakness?: No Are you experiencing any nausea/vomitting?: No Do you have any diarrhea?: No Are you experiencing any unusual bleeding?: No Do you have any muscle aches/pain?: No Do you have any abdominal pain?: No Are you experiencing loss of taste or smell?: No Review of Systems Constitutional Constitutional: Reports anorexia, Reports body ache(s) and Reports fatigue Eyes Eyes: Denies eye discharge, Denies dry eyes, Denies irritation and Denies itchy eyes ENT Ears, Nose, Mouth, and Throat: Denies epistaxis, Denies facial pain, Denies lip swelling and Denies throat swelling *Cardiovascular Cardiovascular: Reports dyspnea and Reports dyspnea on exertion *Respiratory Respiratory: Denies change in phlegm color, Reports chest congestion, Reports cough, Reports dyspnea, Reports dyspnea on exertion, Denies excessive phlegm production and Reports wheezing *Gastrointestinal Gastrointestinal: Denies abdominal pain, Denies belching and Denies cramping *Musculoskeletal Musculoskeletal: Reports back pain, Reports myalgias and Reports other (No small joint swelling or Pain) Psychiatric Psychiatric: Denies homicidal ideation and Denies suicidal ideation Endocrine Endocrine: Reports fatigue and Denies heat intolerance Hematologic/Lymphatic Hematologic/Lymphatic: Denies easy bleeding and Denies lymphadenopathy Allergic/Immunologic Allergic/Immunologic: Denies itchy eyes, Denies lip swelling, Denies throat swelling and Reports wheezing Pulmonology Exam Inpatient Vital signs and Labs for Last 24 Hours: Temp Pulse Resp BP Pulse Ox O2 Del Method O2 Flow Rate 97.4 F L 91 H 17 118/61 95 Nasal Cannula 4 01/25/25 08:00 01/25/25 08:00 01/25/25 08:00 01/25/25 08:00 01/25/25 08:00 01/25/25 09:00 01/25/25 09:00 FiO2 30 01/25/25 06:30 Laboratory Results - last 24 hr 01/24/25 07:30: WBC 5.1 D, RBC 3.68 L, Hgb 11.0 L D, Hct 34.7 L, MCV 94.3 H, MCH 30.2, MCHC 32.0, RDW 14.2, Plt Count 244, MPV 9.6, Neut % (Auto) 84.4 H, Lymph % (Auto) 8.6 L, Jay % (Auto) 6.6, Eos % (Auto) 0.0 L, Baso % (Auto) 0.0 L, Neut # (Auto) 4.3, Lymph # (Auto) 0.4 L, Jay # (Auto) 0.3, Eos # (Auto) 0.0, Baso # (Auto) 0.0, Total Counted 100, Neutrophils % (Manual) 84 H, Lymphocytes % (Manual) 10, Monocytes % (Manual) 6, Platelet Estimate Normal, RBC Morphology Normal 01/24/25 : Chlamy pneumoniae PCR Not detected, Adenovirus (PCR) Not detected, B. pertussis DNA (PCR) Not detected, Coronavirus OC43 (PCR) Not detected, Coronavirus HKU1 (PCR) Not detected, Coronavirus 229E (PCR) Not detected, SARS-CoV-2 (PCR) Not detected, Coronavirus NL63 (PCR) Not detected, Human Metapneumovir PCR Not detected, Influenza A (H1) PCR Not detected, Influ A (H1N1/09) PCR Not detected, Influenza A (H3) PCR Not detected, Influenza Type A (PCR) Not detected, Influenza Type B (PCR) Not detected, M. pneumoniae (PCR) Not detected, Parainfluenza 1 (PCR) Not detected, Parainfluenza 2 (PCR) Not detected, Parainfluenza 3 (PCR) Not detected, Parainfluenza 4 (PCR) Not detected, RSV (PCR) Not detected, Entero/Rhino (PCR) Not detected 01/25/25 05:43: WBC 5.3, RBC 3.48 L, Hgb 10.5 L, Hct 32.8 L, MCV 94.3 H, MCH 30.2, MCHC 32.0, RDW 14.3, Plt Count 198, MPV 10.4, Neut % (Auto) 92.5 H, Lymph % (Auto) 4.4 L, Jay % (Auto) 2.3, Eos % (Auto) 0.0 L, Baso % (Auto) 0.0 L, Neut # (Auto) 4.9, Lymph # (Auto) 0.2 L, Jay # (Auto) 0.1, Eos # (Auto) 0.0, Baso # (Auto) 0.0, VBG pH 7.55 H, VBG pCO2 37.3, VBG pO2 91.5 H, VBG HCO3 31.5 H, VBG Total CO2 32.7 H, VBG O2 Saturation 97.6 H, VBG Base Excess 9.1 H, VBG Lactic Acid 1.6, Sodium 132 L, Potassium 4.5, Chloride 97 L, Carbon Dioxide 31 H, Anion Gap 8.5, BUN 48 H, Creatinine 1.10, Estimated Creat Clear 43, Estimated GFR 65, Est GFR ( Amer) 78, Glucose 134 H, Calcium 9.3, Total Bilirubin 0.5, AST 16 L D, ALT 12 D, Alkaline Phosphatase 72, Total Protein 5.9 L, Albumin 3.6, Globulin 2.3, Albumin/Globulin Ratio 1.6 I & O for Labs for Last 24 Hours: Intake & Output 01/22/25 01/23/25 01/24/25 01/25/25 23:59 23:59 23:59 23:59 Intake Total 170 / 170 510 / 510 240 / 240 Output Total 350 / 350 425 / 425 350 / 350 Balance -180 / -180 85 / 85 -110 / -110 Weight 130 lb 120 lb 12.8 oz 120 lb 13.718 oz Microbiology Reports for the Last 24 Hours: Microbiology 01/23/25 12:48 Blood Blood Culture - Preliminary NO GROWTH AFTER 24 HOURS 01/23/25 12:30 Blood Blood Culture - Preliminary NO GROWTH AFTER 24 HOURS 01/23/25 18:07 Sputum - Expectorated Sputum Gram Stain - Final 01/23/25 18:07 Sputum - Expectorated Sputum Sputum Culture - Preliminary Constitutional: Present moderate distress Head: Present normocephalic and atraumatic ENT: Present normal exam, normal oropharynx and mucous membranes moist Neck: Present normal inspection and full ROM Respiratory: Present respiratory distress, distant breath sounds and able to speak in complete sentences; Absent rhonchi, wheezes or crackles Cardiac: Present S1/S2, Tachycardia and radial pulses present GI: Present soft and distention; Absent tenderness or guarding Skin: Present intact; Absent cyanosis or jaundice Neuro: Present alert, awake and oriented x 3 Extremities: Present normal inspection; Absent clubbing or cyanosis Psychiatric: Present normal affect and cooperative Meds Home Medications and Allergies Home Medications ?Medication ?Instructions ?Recorded ?Confirmed ?Type apixaban 5 mg tablet 5 mg PO BID 07/24/22 01/24/25 History albuterol sulfate 90 mcg/actuation 2 puff inhalation Q4HP PRN 07/29/23 01/24/25 Rx aerosol inhaler Shortness Of Breath 30 days #8.5 grams pantoprazole 40 mg tablet,delayed 40 mg PO DAILY 30 days #30 tabs 07/29/23 01/24/25 Rx release budesonide 160 mcg-glycopyr 9 2 puff inhalation BIDRT 07/20/24 01/24/25 History mcg-formot 4.8 mcg/actuation HFA inhaler (Breztri Aerosphere) famotidine 40 mg tablet 40 mg PO HS 07/20/24 01/24/25 History primidone 50 mg tablet 50 mg PO DAILY 07/20/24 01/24/25 History irbesartan 75 mg tablet 75 mg PO HS 30 days #30 tabs 12/22/24 01/24/25 Rx Held on 01/25/25. Instructions: Resume on 02/08/25. Hold this medication as your blood pressures have been stable without it. Consulted with hospice about restarting. tamsulosin 0.4 mg capsule 0.8 mg (2 x 0.4 mg) PO HS 30 days 12/22/24 01/24/25 Rx #60 caps fluticasone propionate 50 1 spray intranasal BID #16 grams 12/23/24 01/24/25 Rx mcg/actuation nasal spray,suspension oxymetazoline 0.05 % nasal spray 1 spray intranasal BIDP PRN 12/23/24 01/24/25 Rx (Afrin (oxymetazoline)) CONGESTION #22 mL prednisone 10 mg tablet 20 mg PO DAILY 01/07/25 01/24/25 History Held on 01/25/25. Instructions: Resume on 01/29/25. ipratropium 0.5 mg-albuterol 3 mg 3 ml inhalation Q4RT PRN shortness 01/08/25 01/24/25 Rx (2.5 mg base)/3 mL nebulization of breath or wheezing #90 mL soln levocetirizine 5 mg tablet 5 mg PO HS 01/23/25 01/24/25 History cefdinir 300 mg capsule 300 mg PO BID 4 days #8 caps 01/25/25 Rx diltiazem HCl 120 mg 120 mg PO DAILY 30 days #30 caps 01/25/25 Rx capsule,extended release 24 hr furosemide 20 mg tablet 40 mg (2 x 20 mg) PO DAILYP PRN 01/25/25 01/24/25 Rx fluid retention 30 days #0 tabs ipratropium 20 mcg-albuterol 100 1 puff inhalation QIDRT PRN 01/25/25 01/24/25 Rx mcg/actuation mist for inhalation Shortness of breath 30 days #0 (Combivent Respimat) grams morphine 10 mg/5 mL oral solution 5 mg (2.5 mL) PO Q4H PRN Air 01/25/25 Rx hunger #100 mL prednisone 20 mg tablet 40 mg (2 x 20 mg) PO DAILY 3 days 01/25/25 Rx #6 tabs New Prescriptions to Start Prescriptions: cefdinir Cat,Byron diltiazem HCl Pidrosannerachael,Byron morphine Luizrachael,Byron prednisone Pidalisia,Byron Allergies Allergy/AdvReac Type Severity Reaction Status Date / Time No Known Allergies Allergy Verified 08/05/24 12:54 Results Laboratory Findings 01/25/25 05:43 01/25/25 05:43 ABG ABG pH 7.43 mmol/L (7.35-7.45) 01/23/25 14:20 ABG pCO2 46.2 mmhg (35.0-45.0) H 01/23/25 14:20 ABG pO2 128.1 mmhg (80-100) H 01/23/25 14:20 ABG O2 Saturation 99 % (90-100) 01/23/25 14:20 PT/INR, D-dimer PT 11.4 seconds (10.1-12.5) 01/23/25 12:30 INR 1.03 (0.9-1.1) 01/23/25 12:30 D-Dimer 0.87 ug/mL (0.0-0.5) H 01/23/25 12:30 Abnormal lab findings: Abnormal Labs 01/23/25 01/23/25 01/23/25 12:24 12:30 14:20 RBC 4.08 L Hgb 12.5 L Hct 39.3 L MCV 96.3 H Neut % (Auto) 91.8 H Lymph % (Auto) 4.2 L Eos % (Auto) Baso % (Auto) Neut # (Auto) 9.3 H Lymph # (Auto) 0.4 L Neutrophils % (Manual) 90 H Lymphocytes % (Manual) 6 L D-Dimer 0.87 H ABG pCO2 46.2 H ABG pO2 128.1 H ABG HCO3 30.3 H ABG Total CO2 31.7 H ABG Base Excess 6.0 H VBG pH 7.26 L VBG pCO2 73.6 H VBG pO2 VBG HCO3 32.3 H VBG Total CO2 34.5 H VBG O2 Saturation 49.5 L VBG Base Excess 5.2 H VBG Lactic Acid 2.7 H Sodium 134 L Chloride 96 L Carbon Dioxide 33 H BUN 21 H Glucose 124 H AST C-Reactive Protein Total Protein 01/24/25 01/25/25 07:30 05:43 RBC 3.68 L 3.48 L Hgb 11.0 L D 10.5 L Hct 34.7 L 32.8 L MCV 94.3 H 94.3 H Neut % (Auto) 84.4 H 92.5 H Lymph % (Auto) 8.6 L 4.4 L Eos % (Auto) 0.0 L 0.0 L Baso % (Auto) 0.0 L 0.0 L Neut # (Auto) Lymph # (Auto) 0.4 L 0.2 L Neutrophils % (Manual) 84 H Lymphocytes % (Manual) D-Dimer ABG pCO2 ABG pO2 ABG HCO3 ABG Total CO2 ABG Base Excess VBG pH 7.45 H 7.55 H VBG pCO2 VBG pO2 91.5 H VBG HCO3 33.1 H 31.5 H VBG Total CO2 34.6 H 32.7 H VBG O2 Saturation 74.1 H 97.6 H VBG Base Excess 9.0 H 9.1 H VBG Lactic Acid Sodium 133 L 132 L Chloride 96 L 97 L Carbon Dioxide 36 H 31 H BUN 42 H D 48 H Glucose 123 H 134 H AST 16 L D C-Reactive Protein 24.7 H Total Protein 5.9 L Assessment and Plan *Assessment and plan (1) Acute hypercapnic respiratory failure: Status: Acute Category: Medical Code(s): J96.02 - Acute respiratory failure with hypercapnia (2) Acute hypoxic respiratory failure: Status: Acute Category: Medical Code(s): J96.01 - Acute respiratory failure with hypoxia (3) Pneumonia: Status: Resolved Qualifiers: Laterality: bilateral Lung location: unspecified part of lung Pneumonia type: due to unspecified organism Qualified Code(s): J18.9 - Pneumonia, unspecified organism Category: Medical Code(s): J18.9 - Pneumonia, unspecified organism Plan Mr. Garcia is a 79-year-old male greater than 30 PPD history of COPD chronic hypoxic respiratory failure, bullous emphysema recently seen in the hospital for hypercarbic respiratory failure discharged home on nasal cannula oxygen supplementation presented to the ER with worsening respiratory send found to be in hypercarbic respiratory failure needing noninvasive ventilatory therapy. Afebrile. Hemodynamically stable. No evidence of leukocytosis. Blood gas upon admission hypercarbic respiratory 7.2 673.6 and significantly improved with brief usage of noninvasive ventilatory therapy. Patient otherwise admits compliance with her NIV at home. Much worsening respiratory distress prior to hospital admission X-ray 7 admission improving previously noted right lower lobe airspace disease. Otherwise chronic emphysematous changes. Currently receiving cefepime along with COPD exacerbation management Repeat blood blood gas from this morning after using BiPAP overnight is alkalotic with a pH of 7.5 and pCO2 of 37.3. No significant respiratory distress on examination. The plan was made to use BiPAP therapy at night and at more than 4 hours at a time during the daytime. Patient advised to not use BiPAP at least 2 hours after food intake. Plan: Continue Breztri inhaler along with DuoNebs 4 times daily as needed Antibiotics can be weaned to cefdinir to complete a total of 5-day course Prednisone 40 mg daily x 5 days Continue BiPAP therapy, follow in pulmonary clinic in 1 to 2 weeks with repeat blood gas # Thank you for involving pulmonary in this patient care. Will follow in pulmonary clinic in 1 to 2 weeks.
--- NOTE | 2025-01-25 09:24 | HMH.OTEV ---
OT Evaluation Rehab OT IP Evaluation Start: 01/23/25 16:38 Freq: ONCE Status: Active Protocol: Document 01/25/25 09:17 RMREGGIE (Rec: 01/25/25 09:24 [facility] [id number]) Rehab OT IP Assessment Subjective History Pt oriented x 3 on arrival. Pt agreeable to engage in therapy evaluation. Pt admitted on 01/23/25 due to respiratory failure. History and physical: Carroll Garcia is a 79 year old male with a medical history significant for 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 He states he has not been able to sleep last 2 nights. Patient was recently discharged from facility on 01/08/2025 for similar symptoms and was treated for AECOPD, hypercapnic respiratory failure, HAP and was discharged with BiPAP. Patient states he has been compliant with his BiPAP for the last 3 days, has been wearing it for 6 hours a day for the past 2 days. In spite of that, he states he feels like he has to cough something out for the past 2 days but unable to. Also endorses shortness of breath. Denies chest pain, fever/chills.Workup in the ED significant for VBG pH 7.26, pCO2 73.6. Otherwise other workup unremarkable including CBC, CMP, CXR, UA. He was placed on BiPAP for 2 hours, repeat ABG showed resolution in acute hypercapnia. Patient shortness of breath also slightly improved, but continued to have symptoms. Given this presentation, ED provider discussed case with manage decided admit patient for acute on chronic hypercapnic respiratory failure. Dr. Mabry agreed with admission. Subjective Prior to being in the hospital, pt was living at home alone. Pt claims normally he is able to transfer himself short distances without any type of AE. Pt claims he is independent with feeding and dressing. Pt does have a caregiver that comes twice a week to assist with bathing and all IADLs (cooking, cleaning, grocery shopping, etc). Pt is on oxygen at all times. He no longer drives. At this time, pt is requesting to go home with hospice. Hospice agreeable as long as he can transfer himself. Objective Patient Orientation Person,Place,Birthday Right Upper WFL Extremity Gross ROM Left Upper Extremity WFL Gross ROM Bed Mobility bed mobility-scooting,bed mobility - supine/sit Assist Level Supervision/Stand by Transfer Training Sit/Stand Transfer Assist Level Contact Guard/Hand Hold Chair Transfer Rolling Walker Assistive Devices Overall Commode/ Contact Guard Toilet Transfer Ability Rehab OT IP prob,goals,plan Problems Date of Evaluation: 01/25/25 Rehab Potential Rehab Potential Innapropriate for Skilled Therapy Discharge Plan OT Discharge Plan At this time, pt appears to be at his baseline with functional transfers and ADL assistance. Pt can return home with continued caregiver assistance and hospice intervention per patients request. Eval Complexity Eval Charge Codes 71515 - Moderate Complexity PHYSICIAN CERTIFICATION: I certify the specified therapy services for Carroll Garcia are required, authorized, and reviewed every 30 days.
--- NOTE | 2025-01-25 09:36 | P.DS_ITS ---
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 He states he has not been able to sleep last 2 nights. Patient was recently discharged from facility on 01/08/2025 for similar symptoms and was treated for AECOPD, hypercapnic respiratory failure, HAP and was discharged with BiPAP. Patient states he has been compliant with his BiPAP for the last 3 days, has been wearing it for 6 hours a day for the past 2 days. In spite of that, he states he feels like he has to cough something out for the past 2 days but unable to. Also endorses shortness of breath. Denies chest pain, fever/chills.Workup in the ED significant for VBG pH 7.26, pCO2 73.6. Otherwise other workup unremarkable including CBC, CMP, CXR, UA. He was placed on BiPAP for 2 hours, repeat ABG showed resolution in acute hypercapnia. Patient shortness of breath also slightly improved, but continued to have symptoms. Given this presentation, ED provider discussed case with manage decided admit patient for acute on chronic hypercapnic respiratory failure. Dr. Mabry agreed with admission. 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 He states he has not been able to sleep last 2 nights. Patient was recently discharged from facility on 01/08/2025 for similar symptoms and was treated for AECOPD, hypercapnic respiratory failure, HAP and was discharged with BiPAP. Patient states he has been compliant with his BiPAP for the last 3 days, has been wearing it for 6 hours a day for the past 2 days. In spite of that, he states he feels like he has to cough something out for the past 2 days but unable to. Also endorses shortness of breath. Denies chest pain, feve r/chills.Workup in the ED significant for VBG pH 7.26, pCO2 73.6. Otherwise other workup unremarkable including CBC, CMP, CXR, UA. He was placed on BiPAP for 2 hours, repeat ABG showed resolution in acute hypercapnia. Patient shortness of breath also slightly improved, but continued to have symptoms. Given this presentation, ED provider discussed case with manage decided admit patient for acute on chronic hypercapnic respiratory failure. Dr. Mabry agreed with admission. #Acute on chronic hypercapnic respiratory failure #Acute on chronic hypoxic respiratory failure #Severe bullous emphysema ? Presented which progressive shortness of breath, found to be hypercapnic on VBG. Placed on BiPAP in the ED, repeat ABG shows resolution of acute hypercapnia. ? Patient states he has been adherent with his BiPAP over the past few days prior to admission, wearing it 6 hours a day over the past 2 days. Cannot tolerated it at night, wears it during the day. ? Given ongoing symptoms even after BiPAP discussed with pulmonology, agreed with admission. ? CXR, respiratory panel without infection. ? Extensively discussed with patient regarding end-stage severe bullous e mphysema/COPD. He understands the advanced nature of his lung disease, and that it is irreversible which puts him at a high risk for infections, complications, and recurrent hospitalizations. He prefers not to have recurrent hospitalizations, prefers to stay home and be comfortable. Patient expressed interest in hospice, was consulted and accepted patient to home hospice. ? Overall, patient's clinical status improved with BiPAP, DuoNebs, Pulmicort, Mucomyst, steroids, and starting IV morphine 2 mg every 4 hours as needed for air hunger. Deep suctioning also helped with symptoms. ? Patient had a desaturation in the 70s this morning, placed on BiPAP with persistent subjective dyspnea. Received IV morphine 2 mg, dyspnea improved and patient is currently resting. ? Continue BiPAP daily with settings of 16/8 and FiO2 of 28%. ? Discussed with pulmonology, discharged to home hospice with cefdinir 300 mg twice daily for 4 days, morphine 5 mg solution every 4 hours as needed, prednisone 40 mg for 3 more days. #Lower extremity edema #Right lower extremity cellulitis versus venous stasis dermatitis ? BNP normal. Likely from venous insufficiency. Continue to monitor. ? Will recommend leg elevation, compression stockings. ? Patient states he is having blisters, given IV Lasix during admission with some improvement. ? Started cefepime 2 g every 12 hours as empiric treatment for cellulitis. Will transition to cefdinir as above. #A-fib ? Currently rate controlled. Eliquis 5 mg twice daily. Switched metoprolol to diltiazem 120 mg given severe COPD. #Hypertension ? Hold home irbesartan 75 mg for now. BP stable at this time. #BPH ? Continue home tamsulosin. #GERD #Gastritis ? Continue Protonix 40 mg nightly. #Essential tremor ? Continue home primidone 50 mg daily. Total time spent on discharge: 40 minutes on chart review, counseling, documentation, and direct care with patient. Exam Data for Last 24 hours Vital signs and Labs for Last 24 Hours: Temp Pulse Resp BP Pulse Ox O2 Del Method O2 Flow Rate 97.4 F L 91 H 17 118/61 95 Nasal Cannula 4 01/25/25 08:00 01/25/25 08:00 01/25/25 08:00 01/25/25 08:00 01/25/25 08:00 01/25/25 09:00 01/25/25 09:00 FiO2 30 01/25/25 06:30 Laboratory Results - last 24 hr 01/24/25 07:30: WBC 5.1 D, RBC 3.68 L, Hgb 11.0 L D, Hct 34.7 L, MCV 94.3 H, MCH 30.2, MCHC 32.0, RDW 14.2, Plt Count 244, MPV 9.6, Neut % (Auto) 84.4 H, Lymph % (Auto) 8.6 L, [place] % (Auto) 6.6, Eos % (Auto) 0.0 L, Baso % (Auto) 0.0 L , Neut # (Auto) 4.3, Lymph # (Auto) 0.4 L, [place] # (Auto) 0.3, Eos # (Auto) 0.0, Baso # (Auto) 0.0, Total Counted 100, Neutrophils % (Manual) 84 H, Lymphocytes % (Manual) 10, Monocytes % (Manual) 6, Platelet Estimate Normal, RBC Morphology Normal 01/24/25 : Chlamy pneumoniae PCR Not detected, Adenovirus (PCR) Not detected, B. pertussis DNA (PCR) Not detected, Coronavirus OC43 (PCR) Not detected, Coronavirus HKU1 (PCR) Not detected, Coronavirus 229E (PCR) Not detected, SARS-CoV-2 (PCR) Not detected, Coronavirus NL63 (PCR) Not detected, Human Metapneumovir PCR Not detected, Influenza A (H1) PCR Not detected, Influ A (H1N1/09) PCR Not detected, Influenza A (H3) PCR Not detected, Influenza Type A (PCR) Not detected, Influenza Type B (PCR) Not detected, M. pneumoniae (PCR) Not detected, Parainfluenza 1 (PCR) Not detected, Parainfluenza 2 (PCR) Not detected, Parainfluenza 3 (PCR) Not detected, Parainfluenza 4 (PCR) Not detected, RSV (PCR) Not detected, Entero/Rhino (PCR) Not detected 01/25/25 05:43: WBC 5.3, RBC 3.48 L, Hgb 10.5 L, Hct 32.8 L, MCV 94.3 H, MCH 30.2, MCHC 32.0, RDW 14.3, Plt Count 198, MPV 10.4, Neut % (Auto) 92.5 H, Lymph % (Auto) 4.4 L, [place] % (Auto) 2.3, Eos % (Auto) 0.0 L, Baso % (Auto) 0.0 L, Neut # (Auto) 4.9, Lymph # (Auto) 0.2 L, [place] # (Auto) 0.1, Eos # (Auto) 0.0, Baso # (Auto) 0.0, Total Counted 100, Neutrophils % (Manual) 94 H, Lymphocytes % (Manual) 4 L, Monocytes % (Manual) 2, Platelet Estimate Normal, Hypochromasia 1+, Ovalocytes 1+, VBG pH 7.55 H, VBG pCO2 37.3, VBG pO2 91.5 H, VBG HCO3 31.5 H , VBG Total CO2 32.7 H, VBG O2 Saturation 97.6 H, VBG Base Excess 9.1 H, VBG Lactic Acid 1.6, Sodium 132 L, Potassium 4.5, Chloride 97 L, Carbon Dioxide 31 H , Anion Gap 8.5, BUN 48 H, Creatinine 1.10, Estimated Creat Clear 43, Estimated GFR 65, Est GFR ( Amer) 78, Glucose 134 H, Calcium 9.3, Total Bilirubin 0.5, AST 16 L D, ALT 12 D, Alkaline Phosphatase 72, Total Protein 5.9 L, Albumin 3.6, Globulin 2.3, Albumin/Globulin Ratio 1.6 I & O for Last 24 hours: Intake & Output 01/22/25 01/23/25 01/24/25 01/25/25 23:59 23:59 23:59 23:59 Intake Total 170 / 170 510 / 510 240 / 240 Output Total 350 / 350 425 / 425 350 / 350 Balance -180 / -180 85 / 85 -110 / -110 Weight 58.967 kg 54.794 kg 54.82 kg Microbiology Reports for the Last 24 Hours: Microbiology 01/23/25 12:48 Blood Blood Culture - Preliminary NO GROWTH AFTER 24 HOURS 01/23/25 12:30 Blood Blood Culture - Preliminary NO GROWTH AFTER 24 HOURS 01/23/25 18:07 Sputum - Expectorated Sputum Gram Stain - Final 01/23/25 18:07 Sputum - Expectorated Sputum Sputum Culture - Preliminary Constitutional Constitutional: mild distress, cachectic and chronically ill appearing *Routine HEENT Exam Head: Present normocephalic Eye: Present EOMI and PERRL ENT: Present mucous membranes moist *Routine Neck Exam Neck: Present supple; Absent lymphadenopathy *Routine Respiratory Exam Respiratory: Present distant breath sounds; Absent CTA bilaterally *Routine Cardiovascular Exam Cardiovascular: Present RRR *Routine Abdominal Exam Abdominal: Present soft and normoactive bowel sounds; Absent tenderness *Routine Extremities Exam Extremities: Present edema; Absent cyanosis or clubbing Comments: Bilateral distal feet erythema and swelling. *Routine Skin Exam Skin: Present warm; Absent rash *Routine Neurological Exam Neurological: Present alert and oriented X3 Results Data Completed and Pending Labs on day of discharge: Labs from last 24 hours 01/25/25 01/24/25 01/24/25 05:43 Unknown 07:30 WBC 5.3 5.1 D RBC 3.48 L 3.68 L Hgb 10.5 L 11.0 L D Hct 32.8 L 34.7 L MCV 94.3 H 94.3 H MCH 30.2 30.2 MCHC 32.0 32.0 RDW 14.3 14.2 Plt Count 198 244 MPV 10.4 9.6 Neut % (Auto) 92.5 H 84.4 H Lymph % (Auto) 4.4 L 8.6 L [place] % (Auto) 2.3 6.6 Eos % (Auto) 0.0 L 0.0 L Baso % (Auto) 0.0 L 0.0 L Neut # (Auto) 4.9 4.3 Lymph # (Auto) 0.2 L 0.4 L [place] # (Auto) 0.1 0.3 Eos # (Auto) 0.0 0.0 Baso # (Auto) 0.0 0.0 Total Counted 100 100 Neutrophils % (Manual) 94 H 84 H Lymphocytes % (Manual) 4 L 10 Monocytes % (Manual) 2 6 Platelet Estimate Normal Normal RBC Morphology Normal Hypochromasia 1+ Ovalocytes 1+ VBG pH 7.55 H VBG pCO2 37.3 VBG pO2 91.5 H VBG HCO3 31.5 H VBG Total CO2 32.7 H VBG O2 Saturation 97.6 H VBG Base Excess 9.1 H VBG Lactic Acid 1.6 Sodium 132 L Potassium 4.5 Chloride 97 L Carbon Dioxide 31 H Anion Gap 8.5 BUN 48 H Creatinine 1.10 Estimated Creat Clear 43 Estimated GFR 65 Est GFR ( Amer) 78 Glucose 134 H Calcium 9.3 Total Bilirubin 0.5 AST 16 L D ALT 12 D Alkaline Phosphatase 72 Total Protein 5.9 L Albumin 3.6 Globulin 2.3 Albumin/Globulin Ratio 1.6 Chlamy pneumoniae PCR Not detected Adenovirus (PCR) Not detected B. pertussis DNA (PCR) Not detected Coronavirus OC43 (PCR) Not detected Coronavirus HKU1 (PCR) Not detected Coronavirus 229E (PCR) Not detected SARS-CoV-2 (PCR) Not detected Coronavirus NL63 (PCR) Not detected Human Metapneumovir PCR Not detected Influenza A (H1) PCR Not detected Influ A (H1N1/09) PCR Not detected Influenza A (H3) PCR Not detected Influenza Type A (PCR) Not detected Influenza Type B (PCR) Not detected M. pneumoniae (PCR) Not detected Parainfluenza 1 (PCR) Not detected Parainfluenza 2 (PCR) Not detected Parainfluenza 3 (PCR) Not detected Parainfluenza 4 (PCR) Not detected RSV (PCR) Not detected Entero/Rhino (PCR) Not detected Preliminary micro results at discharge 01/23/25 12:48 Blood Culture - Preliminary Blood NO GROWTH AFTER 24 HOURS 01/23/25 12:30 Blood Culture - Preliminary Blood NO GROWTH AFTER 24 HOURS 01/23/25 18:07 Sputum Culture - Preliminary Sputum - Expectorated Sputum DS: Diagnosis Discharge Diagnosis (1) Acute hypercapnic respiratory failure: Status: Acute Code(s): J96.02 - Acute respiratory failure with hypercapnia (2) Acute hypoxic respiratory failure: Status: Acute Code(s): J96.01 - Acute respiratory failure with hypoxia (3) Pneumonia: Status: Resolved Code(s): J18.9 - Pneumonia, unspecified organism Qualifiers: Laterality: bilateral Lung location: unspecified part of lung Pneumonia type: due to unspecified organism Qualified Code(s): J18.9 - Pneumonia, unspecified organism Meds Home Medications and Allergies Home Medications ?Medication ?Instructions ?Recorded ?Confirmed ?Type apixaban 5 mg tablet 5 mg PO BID 07/24/22 5 History albuterol sulfate 90 mcg/actuation 2 puff inhalation Q 4HP PRN 07/29/23 01/24/25 Rx aerosol inhaler Shortness Of Breath 30 days #8.5 grams pantoprazole 40 mg tablet,delayed 40 mg PO DAILY 30 da ys #30 tabs 07/29/23 01/24/25 Rx release budesonide 160 mcg-glycopyr 9 2 puff inhalation BIDRT 07/20/24 01/24/25 History mcg-formot 4.8 mcg/actuation HFA inhaler (Breztri Aerosphere) famotidine 40 mg tablet 40 mg PO HS 07/20/24 5 History primidone 50 mg tablet 50 mg PO DAILY 07/20/2401/03 History irbesartan 75 mg tablet 75 mg PO HS 30 days #30 tabs 12/22/24 01/24/25 Rx Held on 01/25/25. Instructions: Resume on 02/08/25. Hold this medication as your blood pressures have been stable without it. Consulted with hospice about restarting. tamsulosin 0.4 mg capsule 0.8 mg (2 x 0.4 mg) PO HS 30 days 12/22/24 01/24/25 Rx #60 caps fluticasone propionate 50 1 spray intranasal BID #16 g yash 12/23/24 01/24/25 Rx mcg/actuation nasal spray,suspension oxymetazoline 0.05 % nasal spray 1 spray intranasal BI DP PRN 12/23/24 01/24/25 R x (Afrin (oxymetazoline)) CONGESTION #22 mL prednisone 10 mg tablet 20 mg PO DAILY 01/07/2501/03 History Held on 01/25/25. Instructions: Resume on 01/29/25. ipratropium 0.5 mg-albuterol 3 mg 3 ml inhalation Q4RT PRN shortness 01/08/25 01/24/25 Rx (2.5 mg base)/3 mL nebulization of breath or wheezing #90 mL soln levocetirizine 5 mg tablet 5 mg PO HS 01/23/25 5 History cefdinir 300 mg capsule 300 mg PO BID 4 days #8 caps 01/25/25 Rx diltiazem HCl 120 mg 120 mg PO DAILY 30 days #30 caps 01/25/25 Rx capsule,extended release 24 hr furosemide 20 mg tablet 40 mg (2 x 20 mg) PO DAILYP PRN 01/25/25 01/24/25 Rx fluid retention 30 days #0 tabs ipratropium 20 mcg-albuterol 100 1 puff inhalation QID RT PRN 01/25/25 01/24/25 Rx mcg/actuation mist for inhalation Shortness of breath 30 days #0 (Combivent Respimat) grams morphine 10 mg/5 mL oral solution 5 mg (2.5 mL) PO Q4H PRN Air 01/25/25 Rx hunger #100 mL prednisone 20 mg tablet 40 mg (2 x 20 mg) PO DAILY 3 days 01/25/25 Rx #6 tabs New Prescriptions to Start Prescriptions: cefdinir Byron Shelton diltiazem HCl Cat,Byron morphine Cat,Byron prednisone Byron Shelton Allergies Allergy/AdvReac Type Severity Reaction Status Date / Time No Known Allergies Allergy Verified 08/05/24 12:54 Discharge Plan Disposition Patient Disposition: Hospice - Home Condition: Fair Discharge Order Discharge Orders: Discharge Order (Routine); Ordered 01/25/25 Ordered By: Byron Shelton Follow up Plan Follow up with: Stephan Mabry MD [Physician, Pulmonology] - 02/02/25 1:00 pm Prescriptions/Medication Reconciliation: New prednisone 20 mg Tablet 40 mg PO DAILY 3 Days Qty: 6 0RF diltiazem HCl 120 mg Capsule,Extended Release 24hr 120 mg PO DAILY 30 Days Qty: 30 0RF morphine 10 mg/5 mL solution 5 mg PO Q4H PRN (Reason: Air hunger) Qty: 100 0RF cefdinir 300 mg capsule 300 mg PO BID 4 Days Qty: 8 0RF Continued apixaban 5 MG tablet 5 mg PO BID pantoprazole 40 mg Tablet,Delayed Release (Dr/Ec) 40 mg PO DAILY 30 Days Qty: 30 0RF albuterol sulfate 90 mcg/actuation HFA aerosol inhaler 2 puff inhalation Q4HP PRN (Reason: Shortness Of Breath) 30 Days Qty: 8.5 0RF Breztri Aerosphere 160-9-4.8 mcg/actuation HFA aerosol inhaler 2 puff INHALATION BIDRT Patient Comments: INHALE 2 PUFFS BY MOUTH 2 TIMES A DAY primidone 50 mg tablet 50 mg PO DAILY Patient Comments: TAKE ONE TABLET BY MOUTH ONCE A DAY FOR TREMOR famotidine 40 mg tablet 40 mg PO HS Patient Comments: TAKE ONE TABLET BY MOUTH AT BEDTIME ipratropium-albuterol 0.5 mg-3 mg(2.5 mg base)/3 mL Solution For Nebulization 3 ml inhalation Q4RT PRN (Reason: shortness of breath or wheezing) Qty: 90 1RF levocetirizine 5 mg tablet 5 mg PO HS tamsulosin 0.4 mg Capsule 0.8 mg PO HS 30 Days Qty: 60 0RF fluticasone propionate 50 mcg/actuation [place],Suspension 1 spray intranasal BID Qty: 16 0RF oxymetazoline [Afrin (oxymetazoline)] 0.05 % [place],Non-Aerosol 1 spray intranasal BIDP PRN (Reason: CONGESTION) Qty: 22 0RF Changed furosemide 20 mg tablet 40 mg PO DAILYP PRN (Reason: fluid retention) 30 Days Qty: 0 0RF Combivent Respimat 20-100 mcg/actuation mist 1 puff INHALATION QIDRT PRN (Reason: Shortness of breath) 30 Days Qty: 0 0RF Patient Comments: INHALE 1 PUFF FOUR TIMES DAILY FOR COPD Held prednisone 10 mg tablet 20 mg PO DAILY Hold Instructions: Resume on 01/29/25. Patient Comments: TAKE 1 TO 2 TABLETS BY MOUTH ONCE DAILY FOR 30 DAYS irbesartan 75 mg Tablet 75 mg PO HS 30 Days Qty: 30 0RF Hold Instructions: Resume on 02/08/25. Hold this medication as your blood pressures have been stable without it. Consulted with hospice about restarting. Discontinued metoprolol succinate 50 mg tablet extended release 24 hr 50 mg PO DAILY Patient Comments: TAKE ONE TABLET BY MOUTH ONCE A DAY FOR HYPERTENSION AND A. FIB Problem Reconciliation Problems Reviewed?: Yes Patient Discharge Instructions Patient Instructions: DI for Respiratory Failure, Stop Light COPD Print Language: Spanish Providers Primary Care Provider: Maribeth Mclean Admit Provider: Byron Shelton Attending Provider: Byron Shelton
--- NOTE | 2025-01-25 09:59 | [facility].PTEV ---
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 He states he has not been able to sleep last 2 nights. Patient was recently discharged from facility on 01/08 for similar symptoms and was treated for AECOPD, hypercapnic respiratory failure, HAP and was discharged with BiPAP. Patient states he has been compliant with his BiPAP for the last 3 days, has been wearing it for 6 hours a day for the past 2 days. In spite of that, he states he feels like he has to cough something out for the past 2 days but unable to. Also endorses shortness of breath. Denies chest pain, fever/chills. Workup in the ED significant for VBG pH 7.26, pCO2 73.6 . Otherwise other workup unremarkable including CBC, CMP, CXR, UA. He was placed on BiPAP for 2 hours, repeat ABG showed resolution in acute hypercapnia. Patient shortness of breath also slightly improved, but continued to have symptoms. Given this presentation, ED provider discussed case with manage decided admit patient for acute on chronic hypercapnic respiratory failure. Dr. Mabry agreed with admission. Subjective Subjective Pt presents awake, supine, agrees to mobility assessment. He reports he is generally independent with all mobility at baseline, but he stays extremely short of breath with any exertion. Plan is for him to return home today with hospice. [facility] How much help from another person do you currently need... Turning from your None back to your side while in a flat bed without using bedrails? Moving from lying on None back to sitting on the side of a flat bed without using bedrails? Moving to and from a None bed to a chair ( including a wheelchair)? Standing up from a None chair using your arms? (e.g., wheelchair, bedside chair) Walking in hospital A little room? Climbing 3-5 steps A little with a railing? Mobility Score 22 Mobility Level [facility] Mobility 7 Walk 25 feet or more Mobility Calculator Rehab PT IP Eval Objective Appearance Patient Behavior Appropriate Patient Orientation Person,Place,Time Difficulty following none instructions Speech Pattern Clear Ambulation Patient Able to Yes Ambulate Ambulation Observation IP General Gait Shuffling Step Pattern Observation Ambulation Distance 3 (feet) Ambulation Assistive None Device Ambulation Ability Contact Guard/Hand Hold Balance Ability to Arise Able, uses arms to help Sitting Balance Steady, safe Standing Balance Steady, wide stance Dynamic Sitting Good Balance Ability Dynamic Standing Fair Balance Ability Transfers Bed Transfer Ability Supervision/Stand by Chair Transfer Supervision/Stand by Ability Sit to Stand Bed Supervision/Stand by Transfer Ability Sit to Stand Chair Supervision/Stand by Transfer Ability Rehab PT IP prob,goals,plan Problems Date of Evaluation: 01/25/25 Discharge Plan PT Discharge Plan Pt is currently appropriate to return home with hospice assist at this time. No current inpatient acute therapy needs if pt is to utilize hospice services. Eval Complexity Eval Charge Codes 13532 - High Complexity PHYSICIAN CERTIFICATION: I certify the specified therapy services for Carroll Garcia are required, authorized, and reviewed every 30 days.
== END 2025-01-25 16:00 | disposition hospice, home (50) ==
LOC: ER 14:01 → ICU 15:13
PROVIDERS: Nurse Practitioner; Admitting Provider Student in an Organized Health Care Education/Training Program; Emergency Provider Student in an Organized Health Care Education/Training Program; PCP Nurse Practitioner Family; Visit Provider Student in an Organized Health Care Education/Training Program
DX: J96.02 Acute respiratory failure with hypercapnia (principal); J96.01 Acute respiratory failure with hypoxia; Z79.899 Other long term (current) drug therapy; Z79.01 Long term (current) use of anticoagulants; J43.9 Emphysema, unspecified; I48.91 Unspecified atrial fibrillation; I10 Essential (primary) hypertension; N40.0 Benign prostatic hyperplasia without lower urinary tract symptoms; K21.9 Gastro-esophageal reflux disease without esophagitis; R60.0 Localized edema; G25.0 Essential tremor; Z82.49 Family history of ischemic heart disease and other diseases of the circulatory system; Z82.5 Family history of asthma and other chronic lower respiratory diseases; F17.210 Nicotine dependence, cigarettes, uncomplicated; K29.70 Gastritis, unspecified, without bleeding
CPT/HCPCS: 0223U; 36415; 36600; 71045; 80053; 80307; 80320; 81001; 82803; 83605; 83880; 84145; 84484; 85007; 85025; 85027; 85378; 85610; 85730; 86140; 86803; 87040; 87070; 87077; 87186; 87205; 87389; 94640; 94660; 94760; 94761; 96365; 96366; 96367; 96375; 96376; 97163; 97166; 99285; G0378; J0692; J1885; J1938; J2270; J2405; J2919; J3475